=== PATIENT | female | born 1990 | race Caucasian/White ===

== ENCOUNTER 2021-07-03 16:54 | Outpatient (REF) | payer SELFPAY ==
[2021-07-03 20:23] LABS: HCT 39.8 % (36.0-46.0); HGB 13.3 g/dL (11.2-15.7); MCH 30.8 pg (27.0-33.0); MCHC 33.4 % (32.0-36.0); MCV 92.1 fL (80-95); MPV 9.9 fL (8.0-11.0); Platelet Count 248 10^3/uL (130-400); RBC 4.32 10^6/uL (3.93-5.22); RDW 12.4 % (11.7-14.6); RDW-SD 42.3 fL; WBC 5.59 10^3/uL (4.4-10.8)
[2021-07-03 21:18] LABS: TSH (W/Ref FT4) 1.64 uIU/mL (0.36-3.74); Vitamin B12 348 pg/mL (193-986)
== END 2021-07-03 16:55 | disposition home or self-care (01) ==
LOC: NCHCN 16:54
PROVIDERS: Visit Provider Nurse Practitioner Family
DX: R53.1 Weakness (principal); R20.2 Paresthesia of skin
CPT/HCPCS: 85027; 82607; 82746; 84443

== ENCOUNTER 2021-09-17 15:53 | Outpatient (REF) | payer OTHER, SELFPAY ==
[2021-09-17 20:32] LABS: Abs Immature Grans 0.02 10^3/uL (0.0-0.06); Absolute Basophil Count 0.04 10^3/uL (0.0-0.2); Absolute Eosinophil Count 0.09 10^3/uL (0.0-0.7); Absolute Lymphocyte Count 1.56 10^3/uL (1.2-3.4); Absolute Monocyte Count 0.31 10^3/uL (0.1-0.8); Absolute Neutrophil Count 2.74 10^3/uL (1.2-6.7); Basophils % 0.8; Eosinophils % 1.9; HGB 13.6 g/dL (11.2-15.7); Immature Grans % 0.4; Lymphocytes % 32.8; MCH 32.2 pg (27.0-33.0); MCV 95 fL (80-95); MPV 10.3 fL (8.0-11.0); Monocytes % 6.5; Neutrophils % 57.6; Platelet Count 252 10^3/uL (130-400); RBC 4.23 10^6/uL (3.93-5.22); RDW 12.6 % (11.7-14.6); WBC 4.76 10^3/uL (4.4-10.8)
== END 2021-09-17 15:54 | disposition home or self-care (01) ==
LOC: NCHCN 15:53
PROVIDERS: Visit Provider Nurse Practitioner Family
DX: R59.0 Localized enlarged lymph nodes (principal)
CPT/HCPCS: 85025

== ENCOUNTER 2022-10-20 18:38 | Outpatient (REF) | payer OTHER, SELFPAY ==
--- NOTE | 2022-10-20 14:30 | PAPFT_PTH ---
PATIENT: Marylou Shafer LOC: [facility]#:[id number] AGE/SX: 32/F ROOM: RE10/20/[address]: Kali Roa : 1990 BED: DIS: 10/20/2022 SPEC #: [id number] RECD: 10/21/22 13:06 STATUS: ELISHAJose RERaphael #: [id number] MARCO: 10/20/22 14:[address]: Karli Roalaide DEPT: [facility] Cytology RECD BY: Aliyah Humphreys ENTERED: 10/21/22 13:06 SP TYPE: PAPFT JORGE LUIS DR: Unknown,Unknown Tissues: 1 - CX/ENDOCX FOR PAP SMEARS Procedures: PAP THIN PREP/[facility] Screening HPV DNA PROBE Comments: [id number]
== END 2022-10-20 18:39 | disposition home or self-care (01) ==
LOC: NCHCN 18:38
PROVIDERS: Visit Provider Nurse Practitioner Family
DX: Z12.4 Encounter for screening for malignant neoplasm of cervix (principal); R87.610 Atypical squamous cells of undetermined significance on cytologic smear of cervix (ASC-US); Z11.51 Encounter for screening for human papillomavirus (HPV); Z01.419 Encounter for gynecological examination (general) (routine) without abnormal findings
CPT/HCPCS: 88142; 87624

== ENCOUNTER 2023-04-29 12:33 | Outpatient (REF) | payer OTHER, SELFPAY ==
--- OUTSIDE RECORDS SUMMARY | 2023-04-29 12:35 | XMS_ITS | Continuity of Care Document ---
Author Name Unknown Organization [facility] Address [address] [place] [address] Care Team Providers Care Extract Operator Name Role Phone LucianBlossom lemoschrissy Steel Primary Care Physician Encounter [facility] Date(s): 04/22/23 - 04/23/[address] [address] Encounter Diagnosis New onset seizure(Discharge Diagnosis) - 04/22/23 Unspecified convulsions(Final) - Hypo-osmolality and hyponatremia(Final) - Encounter for screening for COVID-19(Final) - Discharge Disposition: Home or Self Care Attending Physician: Keith Hart DO Admitting Physician: Lavelle Wright SHEEP BONER Allergies, Adverse Reactions, Alerts Substance Reaction Severity Status penicillins Unknown Active Assessment and Plan Extracted from: Title:H & P Author:Lavelle Wright Date:04/22/23 1.??New onset seizure??R56.9 -??Admitted as an inpatient -MRI with contrast of the brain -Seizures precautions -Tylenol for fever or headache -Normal saline at 100 cc/h -Zofran for nausea and vomiting -CBC, BMP, mag, Phos in the morning ? Ordered: PSO Admit to Inpatient, Semi-Private Telemetry, Inpatient, Keith Hart DO, 04/22/23 23:55:00 EST, 04/22/23 23:55:00 EST, 04/22/23 23:55:00 EST, 2 midnights or more but less than 96 hrs ?? Orders: acetaminophen, 1,000 mg = 2 tab, Oral, Tab, every 6 hr, PRN fever, First Dose: 04/23/23 0:47:00 EST, Routine Mylanta, 15 mL, Oral, Susp, every 6 hr, PRN dyspepsia, First Dose: 04/23/23 0:47:00 EST, Routine famotidine, 20 mg = 1 tab, Oral, Tab, BID, First Dose: 04/23/23 9:00:00 EST, Routine Keppra, 500 mg = 5 mL, IV Piggyback, Soln-IV, every 12 hr for 30 days, Administer over: 15 minutes, First Dose: 04/23/23 9:00:00 EST, Stop Date: 05/23/23 8:59:00 EST, Physician Stop, Routine, 400 mL/hr lidocaine 1% injectable solution, 1 mg 0.1 mL, Intradermal, Soln, As Directed, PRN other (see comment), First Dose: 04/23/23 0:47:00 EST, Routine Ativan, 1 mg = 0.5 mL, IV Push, Soln, every 2 hr for 3 days, PRN seizure activity, First Dose: 04/23/23 0:47:00 EST, Stop Date: 04/26/23 0:46:00 EST, Physician Stop, STAT ondansetron, 4 mg = 2 mL, IV Push, Soln, every 6 hr, PRN nausea/vomiting, First Dose: 04/23/23 0:47:00 EST, Routine Normal Saline Flush, 10 mL, IV Push, Soln, every 12 hr (cristopher), First Dose: 04/23/23 9:00:00 EST, Routine Sodium Chloride 0.9% 1,000 mL, Total Volume (mL): 1,000, 1,000 mL, Soln-IV, IV, 100 mL/hr, Start Date: 04/23/23 0:47:00 EST, Populate Charting Weight From Order Sodium Chloride 0.9% 1,000 mL, Total Volume (mL): 1,000, 1,000 mL, Soln-IV, IV, 30 mL/hr, Start Date: 04/23/23 0:47:00 EST, Populate Charting Weight From Order Ambulate as Tolerated, 04/23/23 0:47:00 EST, PRN Basic Metabolic Panel, Blood, Routine, 04/23/23 6:00:00 EST, every morning, for 3 days, Lab Collect Cardiac Monitoring, 04/23/23 0:47:00 EST, Telemetry CBC w/ Diff, Blood, Routine, 04/23/23 6:00:00 EST, every morning, for 3 days, Lab Collect Magnesium Level, Blood, Routine, 04/23/23 6:00:00 EST, every morning, for 3 days, Lab Collect MRI Brain w/ + w/o Contrast, 04/23/23 0:47:00 EST, Stat, Reason: new onset seizures, No, No, Transport Mode: Stretcher, Exam to be performed outside organization? Neurological Checks, 04/23/23 0:47:00 EST, With VS, Constant Indicator, 04/23/23 0:47:00 EST Notify Provider of Vital Signs, 04/23/23 0:47:00 EST, SpO2 < 92% on 2L O2 NC, T > 101.5, HR > 100, HR < 50, SBP greater than 160, SBP less than 90, DBP greater than 90, DBP less than 50, Resp Rate greater than 30, Resp Rate less than 8, Constant Indicator Phosphorus Level, Blood, Routine, 04/23/23 6:00:00 EST, every morning, for 3 days, Lab Collect Resuscitation Status, 04/23/23 0:47:00 EST, Full Code RT Eval and Treat Protocol, 04/23/23 0:47:00 EST, Stop date 04/23/23 0:47:00 EST, Rebekah Degroot RN Seizure Precautions, 04/23/23 0:47:00 EST, Constant Order, 04/23/23 0:47:00 EST Vital Signs, 04/23/23 0:47:00 EST, Constant order, every 4 hrs Weight, 04/23/23 0:47:00 EST, every morning Home meds reviewed??and reconciled for the medical record Extracted from: Title:ED Provider Note Author:Dylan Kirkpatrick MD Date:04/22/23 1.??Seizure??R56.9,??New ons et seizure??R56.9 Orders: Cardiac Monitoring, 04/22/23 20:44:00 EST Urine Culture, Urine, Stat collect, ST - Stat, 04/22/23 21:11:00 EST, Once, Nurse collect, Collected, 04/22/23 21:11:00 EST, Print Label, [id number] Vital Signs, 04/22/23 20:44:00 EST, Stop date 04/22/23 20:44:00 EST, Notify the Physician of ANY Abnormal Vital Signs Functional Status 04/23/23 Living Environment No Living Environmen t Information Available Lives With Family 1 Patient's Responsibilities Caregiver for child/parent/spouse, Driving, vp talent management, Home management, Housework, Laundry, Meal preparation, Personal ADL, Shopping, Other: (I) with all needs prior to admission. Special Services and Community Resources None 04/23/23 ADLs Independent 04/23/23 Family Member Travel History No recent t ravel Recent Travel History No recent travel Other exposure to Infectious Disease Non e 1Result Comment: Spouse and their 4 yo child. Medications Keppra 500 mg oral tablet 500 mg = 1 tab, Oral, BID, # 60 tab, 1 Refill(s), Pharmacy: [facility], 59.5, kg, 04/23/23 1:09:00 EST, Weight Dosing Start Date: 04/23/23 Status: Ordered Mental Status 04/23/23 Eye Opening Response [place] Spontaneous ly Best Verbal Response [place] Oriented Best Motor Response Venus Obeys comman ds [place] Coma Score 15 Problem List Condition Confirmation Course Effective Dates Status Health St atus Informant New onset seizure Confirmed Active Results Laboratory List Name Date Automated Diff 04/23/23 Basic Metabolic Panel 04/23/23 CBC w/ Diff 04/23/23 Magnesium Level 04/23/23 Phosphorus Level 04/23/23 SARS-CoV-2 (COVID-19) RNA (ID Now) Drug Screen Urine 04/22/23 Urinalysis Microscopic 04/22/23 Urinalysis with Micro if Indicated and C ulture if Indicated 04/22/23 Alcohol Level 04/22/23 CBC w/ Diff 04/22/23 Comprehensive Metabolic Panel (CMP) 04/22 PT/ INR 04/22/23 Automated Diff 04/22/23 Most recent to oldest [Reference Range]: 1 2 WBC [5.0-10.0 x10^3/mcL] 6.0 x10^3/mcL (04/23/23 7:00 AM) 7.1 x10^3/mcL (04/22/23 8:45 PM) RBC [4.1-5.3 x10^6/mcL] 3.8 x10^6/mcL *LOW* (04/23/23 7:00 AM) 4.2 x10^6/mcL (04/22/23 8:45 PM) Neutro Auto [40.0-75.0 %] 71.3 % (04/23/23 7:00 AM) 76.2 % *HI* (04/22/23 8:45 PM) Lymph Auto [20.0-50.0 %] 16.5 % *LOW* (04/23/23 7:00 AM) 13.7 % *LOW* (04/22/23 8:45 PM) Rosebud Auto [2.0-15.0 %] 11.2 % (04/23/23 7:00 AM) 8.8 % (04/22/23 8:45 PM) Basophil Auto [0.0-1.0 %] 0.3 % (04/23/23 7:00 AM) 0.4 % (04/22/23 8:45 PM) Prothrombin Time [9.0-11.0 seconds] 9.4 seconds (04/22/23 8:45 PM) INR 0.9 1 *NA* (04/22/23 8:45 PM) BUN [7-18 mg/dL] 8 mg/dL (04/23/23 7:00 AM) 7 mg/dL (04/22/23 8:45 PM) U Amph Scrn [Negative] Negative 2 (04/22/23 9:11 PM) UA Color Yellow (04/22/23 9:11 PM) UA WBC [0-3] 3-5 *ABN* (04/22/23 9:11 PM) Glucose Level [74-106 mg/dL] 91 mg/dL (04/23/23 7:00 AM) 178 mg/dL *HI* (04/22/23 8:45 PM) Potassium Level [3.5-5.1 mmol/L] 3.3 mmo l/L *LOW* (04/23/23 7:00 AM) 3.8 mmol/L (04/22/23 8:45 PM) U Benzodia Scrn [Negative] Negative (04/22/23 9:11 PM) MCV [80.0-96.0 fL] 95.1 fL (04/23/23 7:00 AM) 93.1 fL (04/22/23 8:45 PM) UA Urobilinogen Normal (04/22/23 9:11 PM) UA Bili [Negative] 1+ *ABN* (04/22/23 9:11 PM) UA Ketones Negative (04/22/23 9:11 PM) AST [15-37 unit/L] 63 unit/L *HI* (04/22/23 8:45 PM) ALT [14-59 unit/L] 42 unit/L (04/22/23 8:45 PM) MCHC [31.0-35.0 g/dL] 35.2 g/dL *HI* (04/23/23 7:00 AM) 36.2 g/dL *HI* (04/22/23 8:45 PM) Sodium Level [136-145 mmol/L] 139 mmol/L (04/23/23 7:00 AM) 134 mmol/L *LOW* (04/22/23 8:45 PM) UA RBC [0-2] 3-5 (04/22/23 9:11 PM) UA Leuk Est Negative (04/22/23 9:11 PM) UA Nitrite Negative (04/22/23 9:11 PM) UA Glucose [Negative] 1+ *ABN* (04/22/23 9:11 PM) Hct [37.0-47.0 %] 36.6 % *LOW* (04/23/23 7:00 AM) 39.2 % (04/22/23 8:45 PM) UA Bacteria Moderate /HPF *ABN* (04/22/23 9:11 PM) U Cocaine Scrn [Negative] Negative (04/22/23 9:11 PM) Calcium Level [8.5-10.1 mg/dL] 8.1 mg/dL *LOW* (04/23/23 7:00 AM) 8.6 mg/dL (04/22/23 8:45 PM) Phosphorus Level [2.6-4.7 mg/dL] 2.4 mg/ dL *LOW* (04/23/23 7:00 AM) Albumin Level [3.4-5.0 g/dL] 4.2 g/dL (04/22/23 8:45 PM) Protein Total [6.4-8.2 g/dL] 7.2 g/dL (04/22/23 8:45 PM) UA Protein 3+ *ABN* (04/22/23 9:11 PM) MCH [26.0-32.0 pg] 33.5 pg *HI* (04/23/23 7:00 AM) 33.7 pg *HI* (04/22/23 8:45 PM) Magnesium Level [1.8-2.4 mg/dL] 1.9 mg/d L (04/23/23 7:00 AM) Neutro Absolute 4.3 x10^3/mcL *NA* (04/23/23 7:00 AM) 5.4 x10^3/mcL *NA* (04/22/23 8:45 PM) Bilirubin Total [0.2-1.0 mg/dL] 2.7 mg/d L *HI* (04/22/23 8:45 PM) Hgb [12.0-16.0 g/dL] 12.9 g/dL (04/23/23 7:00 AM) 14.2 g/dL (04/22/23 8:45 PM) Alk Phos [46-146 unit/L] 44 unit/L *LOW* (04/22/23 8:45 PM) UA Blood 1+ *ABN* (04/22/23 9:11 PM) Ethanol Level [0-10 mg/dL] <5 mg/dL (04/22/23 8:45 PM) UA Mucous Few /HPF *ABN* (04/22/23 9:11 PM) UA Spec Grav 1.015 *NA* (04/22/23 9:11 PM) Platelets [130-450 x10^3/mcL] 154 x10^3/ mcL (04/23/23 7:00 AM) 189 x10^3/mcL (04/22/23 8:45 PM) CO2 [21-32 mmol/L] 25 mmol/L (04/23/23 7:00 AM) 23 mmol/L (04/22/23 8:45 PM) U Richelle Scrn [Negative] Negative (04/22/23 9:11 PM) UA Squam Epithelial [None Seen] Rare (04/22/23 9:11 PM) UA pH 8.0 *NA* (04/22/23 9:11 PM) U Opiate Scrn [Negative] Negative (04/22/23 9:11 PM) eGFR Non-AA [>=60] 121 (04/23/23 7:00 AM) 92 (04/22/23 8:45 PM) eGFR AA [>=60] 121 (04/23/23 7:00 AM) 92 (04/22/23 8:45 PM) UA Appear Clear (04/22/23 9:11 PM) Chloride Level [98-107 mmol/L] 105 mmol/ L (04/23/23 7:00 AM) 99 mmol/L (04/22/23 8:45 PM) U Oxy Scrn [Negative] Negative (04/22/23 9:11 PM) U PCP Scrn [Negative] Negative (04/22/23 9:11 PM) RDW-CV [11.5-14.5 %] 11.9 % (04/23/23 7:00 AM) 11.7 % (04/22/23 8:45 PM) U THC Scr [Negative] Positive *ABN* (04/22/23 9:11 PM) U Methadone Scr [Negative] Negative (04/22/23 9:11 PM) Imm Gran Auto [0.0-0.9 %] 0.2 % (04/23/23 7:00 AM) 0.3 % (04/22/23 8:45 PM) UA Culture Ind?. Indicated (04/22/23 9:11 PM) U Buprenorph Scr [Negative] Negative (04/22/23 9:11 PM) U mAMP Scr [Negative] Negative (04/22/23 9:11 PM) U TCA Scr [Negative] Negative (04/22/23 9:11 PM) Creatinine Level [0.55-1.02 mg/dL] 0.63 mg/dL (04/23/23 7:00 AM) 0.86 mg/dL (04/22/23 8:45 PM) SARS-CoV-2 (COVID-19) RNA (I D Now) [Not Detected] Not Detected (04/22/23 10:25 PM) Eos, Auto [1.0-6.0 %] 0.5 % *LOW* (04/23/23 7:00 AM) 0.6 % *LOW* (04/22/23 8:45 PM) 1Interpretive Data: INR 2-2.5 Prophylaxis: Short term DVT INR 2-3 Prophylaxis: hip and femur surgery Therapy: DVT (3 mos) PE (3-6 mos) TIA (fci) Atr Fib (remote computer terminal operator) Syst. emb post [place] Mitral Stenosis with emboli (remote computer terminal operator) Tissue prosthetic valves (3 mos min) INR 3-4.5 Therapy: recurrent DVT, PE (remote computer terminal operator) Prosthetic heart valves (fci) 2Interpretive Data: These are unconfirmed screening results, to be used only for medical (i.e. treatment) purposes. These screening results must not be used for non-medical purposes (e.g. employment or legal testing). New method started 09/26/10 Test Name Reference Range (Cut-off) THC Neg (50 ng/mL) PCP Neg (25 ng/mL) GIDEON Neg (150 ng/mL) MET Neg (500 ng/mL OPI Neg (100 ng/mL) AMP Neg (500 ng/mL BZO Neg (150 ng/mL) TCA Neg (300 ng/mL) MTD Neg (200 ng/mL) BAR Neg (200 ng/mL) OXY Neg (100 ng/mL) PPX Neg (300 ng/mL) BUP Neg (10 ng/mL) Orders for Microbiology Reports Name Date Urine Culture 04/22/23 Microbiology Reports TEST:Urine Culture STATUS:Auth (Verified) BODY SITE: SOURCE:Urine COLLECTED DATE/TIME:04/22/23 9:11 PM FINAL REPORT 10,000 - 100,000 cfu/ml Mixed Gram Positive [place] Vital Signs Most recent to oldest [Reference Range]: 1 2 3 Temperature Temporal Artery [36-38 Deg C] 36.9 Deg C (04/23/23 12:44 PM) 36.8 Deg C (04/23/23 4:27 AM) 36.9 Deg C (04/23/23 12:58 AM) Temperature Temporal Artery (DegF) [97.3-100 Deg F] 98.42 Deg F (04/23/23 12:44 PM) Peripheral Pulse Rate [60-100 bpm] 72 bpm (04/23/23 12:44 PM) 87 bpm (04/23/23 7:30 AM) 94 bpm (04/23/23 4:27 AM) Heart Rate Monitored [60-100 bpm] 101 bpm *HI* (04/23/23 12:00 AM) 104 bpm *HI* (04/22/23 11:00 PM) 95 bpm (04/22/23 10:00 PM) Respiratory Rate [12-24 br/min] 16 br/min (04/23/23 12:44 PM) 16 br/min (04/23/23 7:30 AM) 18 br/min (04/23/23 4:27 AM) Blood Pressure [90-140/60-90 mmHg] 134/96mmHg (04/23/23 12:44 PM) 112/63mmHg (04/23/23 4:27 AM) 127/94mmHg (04/23/23 12:58 AM) Mean Arterial Pressure, Cuff [70-110 mmHg] 93 mmHg (04/23/23 12:00 AM) 103 mmHg (04/22/23 11:00 PM) 103 mmHg (04/22/23 10:00 PM) Mean Arterial Pressure Cuff 79 mmHg (04/23/23 4:27 AM) Weight 59.5 kg (04/23/23 1:09 AM) 59.5 kg (04/23/23 12:59 AM) Weight Measured (lbs) 131.175 lb (04/23/23 12:59 AM) Weight Dosing 59.5 kg (04/23/23 1:09 AM) 59.500 kg (04/23/23 12:59 AM) Weight Estimated 59.5 kg (04/23/23 1:09 AM) 56.5 kg (04/22/23 8:28 PM) BSA Estimated 0 m2 (04/23/23 1:09 AM) Body Mass Index Estimated 26.49 kg/m2 (04/23/23 1:09 AM) 25.11 kg/m2 (04/22/23 8:28 PM) Height/Length Estimated 149.86 cm (04/23/23 1:09 AM) 150 cm (04/22/23 8:28 PM) Social History Social History Type Response Tobacco Former tobacco user Tobacco Use:. Sex Female Hospital Discharge Instructions Patient Education 04/23/2023 12:09:55 Seizure, Adult Seizure, Adult A seizure is a sudden burst of abnormal electrical and chemical activity in the brain. Seizures usually last from 30 seconds to 2 minutes. The abnormal activity temporarily interrupts normal brain function. Many types of seizures can affect adults. A seizure can cause many different symptoms depending on where in the brain it starts. What are the causes? Common causes of this condition include: ??? Fever or infection. ??? Brain injury, head trauma, bleeding in the brain, or a brain tumor. ??? Low levels of blood sugar or salt (sodium). ??? Kidney problems or liver problems. ??? Metabolic disorders or other conditions that are passed from parent to child (are inherited). ??? Reaction to a substance, such as a drug or a medicine, or suddenly stopping the use of a substance (withdrawal). ??? A stroke. ??? Developmental disorders such as autism spectrum disorder or cerebral palsy. In some cases, the cause of a seizure may not be known. Some people who have a seizure never have another one. A person who has repeated seizures over time without a clear cause has a condition called epilepsy. What increases the risk? You are more likely to develop this condition if: ??? You have a family history of epilepsy. ??? You have had a tonic???clonic seizure before. This type of seizure causes tightening (contraction) of the muscles of the whole body and loss of consciousness. ??? You have a history of head trauma, lack of oxygen at , or strokes. What are the signs or symptoms? There are many different types of seizures. The symptoms vary depending on the type of seizure you have. Symptoms occur during the seizure. They may also occur before a seizure (aura) and after a seizure (postictal). Symptoms may include the following: Symptoms during a seizure ??? Uncontrollable shaking (convulsions) with fast, jerky movements of muscles. ??? Stiffening of the body. ??? Breathing problems. ??? Confusion, staring, or unresponsiveness. ??? Head nodding, eye blinking or fluttering, or rapid eye movements. ??? Drooling, grunting, or making clicking sounds with your mouth. ??? Loss of bladder control and bowel control. Symptoms before a seizure ??? Fear or anxiety. ??? Nausea. ??? Vertigo. This is a feeling like: ??? You are moving when you are not. ??? Your surroundings are moving when they are not. ??? D??j?? vu. This is a feeling of having seen or heard something before. ??? Odd tastes or smells. ??? Changes in vision, such as seeing flashing lights or spots. Symptoms after a seizure ??? Confusion. ??? Sleepiness. ??? Headache. ??? Sore muscles. How is this diagnosed? This condition may be diagnosed based on: ??? A description of your symptoms. Video of your seizures can be helpful. ??? Your medical history. ??? A physical exam. You may also have tests, including: ??? Blood tests. ??? CT scan. ??? MRI. ??? Electroencephalogram (EEG). This test measures electrical activity in the brain. An EEG can predict whether seizures will return. ??? A spinal tap, also called a lumbar puncture. This is the removal and testing of fluid that surrounds the brain and spinal cord. How is this treated? Most seizures will stop on their own in less than 5 minutes, and no treatment is needed. Seizures that last longer than 5 minutes will usually need treatment. Seizures may be treated with: ??? Medicines given through an IV. ??? Avoiding known triggers, such as medicines that you take for another condition. ??? Medicines to control seizures or prevent future seizures (antiepileptics), if epilepsy caused your seizures. ??? Medical devices to prevent and control seizures. ??? Surgery to stop seizures or to reduce how often seizures happen, if you have epilepsy that doesnot respond to medicines. ??? A diet low in carbohydrates and high in fat (ketogenic diet). Follow these instructions at home: Medicines ??? Take tksn-ehj-lrcothw and prescription medicines only as told by your health care provider. ??? Avoid any substances that may prevent your medicine from working properly, such as alcohol. Activity ??? Follow instructions about activities, such as driving or swimming, that would be dangerous if you had another seizure. Wait until your health care provider says it is safe to do them. ??? If you live in the [place] check with your local department of motor vehicles (DMV) to find out about local driving laws. Each state has specific rules about when you can legally drive again. ??? Get enough rest. Lack of sleep can make seizures more likely to occur. Educating others ??? Teach friends and family what to do if you have a seizure. They should: ??? Help you get down to the ground, to prevent a fall. ??? Cushion your head and move items away from your body. ??? Loosen any tight clothing around your neck. ??? Turn you on your side. If you vomit, this helps keep your airway clear. ??? Know whether or not you need emergency care. ??? Stay with you until you recover. ??? Also, tell them what not to do if you have a seizure. Tell them: ??? They should not hold you down. Holding you down will not stop the seizure. ??? They should not put anything in your mouth. General instructions ??? Avoid anything that has ever triggered a seizure for you. ??? Keep a seizure diary. Record what you remember about each seizure, especially anything that might have triggered it. ??? Keep all follow-up visits. This is important. Contact a health care provider if: ??? You have another seizure or seizures. Call each time you have a seizure. ??? Your seizure pattern changes. ??? You continue to have seizures with treatment. ??? You have symptoms of an infection or illness. Either of these might increase your risk of having a seizure. ??? You are unable to take your medicine. Get help right away if: ??? You have: ??? A seizure that does not stop after 5 minutes. ??? Several seizures in a row without a complete recovery between seizures. ??? A seizure that makes it harder to breathe. ??? A seizure that leaves you unable to speak or use a part of your body. ??? You do not wake up right away after a seizure. ??? You injure yourself during a seizure. ??? You have confusion or pain right after a seizure. These symptoms may represent a serious problem that is an emergency. Do not wait to see if the symptoms will go away. Get medical help right away. Call your local emergency services (911 in the [place] Do not drive yourself to the hospital. Summary ??? Seizures are caused by abnormal electrical and chemical activity in the brain. The activity disrupts normal brain function and can cause various symptoms. ??? Seizures have many causes, including illness, head injuries, low levels of blood sugar or salt,and certain conditions. ??? Most seizures will stop on their own in less than 5 minutes. Seizures that last longer than 5 minutes are a medical emergency and need treatment right away. ??? Many medicines are used to treat seizures. Take jhhg-gep-wapwbfv and prescription medicines only as told by your health care provider. This information is not intended to replace advice given to you by your health care provider. Make sure you discuss any questions you have with your health care provider. Document Revised: 09/14/2020 Document Reviewed: 09/14/2020 Elsevier Patient Education ?? 2022 [employer] Follow Up Care 04/22/2023 20:28:43 With:[facility] Address: When:1 month Comments:Referral sent to [facility] With:Camryn Peters SHEEP BONER Address: [address] [place] [id number]- When:05/04/2023 09:00:00 Comments:Hospital follow up Pharmacology Note * Shelby Padron: PERFORM Event Display: Pharmacy Note Authored Date: TelePharmacy Home Medication List Update for Medication Reconciliation ??? Person Interviewed: patient ??? Quality of Interview/accuracy of medication list: good ??? Sources used to compile medication list: ???[facility] medication list ???SureScripts ?? PCP/Specialist list ?? Retail pharmacy ?? Patient list ?? MAR ?? Other ??? Changes made to home medication list: o Additions: ??? None o Deletions: ??? None o Changes: ??? None ??? Additional Notes: o Updated medication list with information provided by patient. Patient verified no prescription orOTC medications at home. ??? Recommended changes: o None The home medication list is now updated to the best of my knowledge and is ready to be reconciled by the provider. Please contact the TelePharmacy Medication Reconciliation Pharmacist at for any questions. Discharge instructions * Nettie Solano: PERFORM Event Display: Discharge Instructions Authored Date: [id number] CHRISTIANA HERNANDEZ :1990 Age:32 years Sex:Female Visit Date:04/22/2023 Primary Care Physician: Camryn Peters NP Hospital Discharge Instructions We would like to thank you for allowing us to assist you with your healthcare needs. The following includes patient education materials and information regarding your injury/illness. Your Next Steps Discharge Orders Discharge Activity Restrictions, Other (please specify):, No driving Avoid unsecured high places Discharge Bathing Instructions, Avoid baths and preference of showers No swimming alone Discharge Diet Instruction, Regular home diet Follow Up Appointments Follow Up with??[facility] When:??Within 1 month Why: Referral sent to [facility] Follow Up with??Camryn Peters NP When:??05/04/2023 10:00 AM EST Why: Hospital follow up Where: [address] [place] [id number]- Medications What How Much When Instructions Next Dose New levETIRAcetam (Keppra 500 mg oral tablet) 1 tab Oral (given by mouth) 2 times a day Refills: 1 Pickup at [facility] 04/23 @ 9pm Pharmacy Information [facility]: [address], [place] [phone] Your Summary Your Care Team Admitting Physician - Lavelle Wright SHEEP BONER Attending Physician - Keith Hart DO Primary Care Physician - Camryn Peters SHEEP BONER Your Diagnosis New onset seizure Problems Ongoing - Any problem that you are currently receiving treatment for. New onset seizure Discharge Vitals Temperature??(Temporal Artery) 98.4 ??F (36.9 ??C) Heart Rate??(Peripheral) 72 Respiratory Rate?? 16 Blood Pressure?? 134/96?? Height?? 59.00 in (149.86 cm) Weight?? 131.20 lb (59.5 kg) Weight??(Estimated) 131.20 lb (59.5 kg) BMI?? 26.49 Allergies penicillins Patient/Grill Cook Signature Patient Name:CHRISTIANA HERNANDEZ I have received this information and my questions have been answered. Patient/Grill Cook Name: Patient/Grill Cook Signature: Relationship to Patient: Witness Name/Signature: Date: Electronically Signed on: 04/23/2023 13:41 ESTSigned by:VINH microsoft dynamics manager architect Note * Nettie Solano D: PERFORM Event Display: Case Management Note Authored Date: [id number] Discharge instructions/education on seizures reviewed with patient at bedside. Patient engaged in education and able to verbalize teach back of reviewed material. Patient is aware of 1 new medicationfor pickup schedule and indication reviewed. Importance of compliance to this medication stressed. Patient is aware of follow-up with PCP Camryn peters on 05/04 at 10 AM. Discharge summary faxed to PCP office with patient's permission. Patient's providing transportation home. No home healthservices ordered upon discharge. Reportable signs and symptoms reviewed. Safety measures to take orfor free patient's family to take if she should have another seizure at home. Patient is aware she is not cleared to drive until she is seen by neurologist at [facility]. Patient is aware that I have sent a referral to neurology at [facility]. Patient denies any home medications or personal belongings in the [facility]. Patient's primary RN aware that patient is still hooked up to IV fluids this will may need to be removed prior to her departure. Contact information provided. * Kate Ward: PERFORM Event Display: Case Management Note Authored Date: [id number] Interqual criteria Telehealth Consult note * Celina Barnhart: PERFORM Event Display: Telemedicine Consultation Authored Date: [id number] EKG study * Event Display: Telemetry Strips Please click on link to view image. * Event Display: Telemetry Strips Please click on link to view image. * Event Display: Telemetry Strips Please click on link to view image. Respiratory therapy Hospital Progress note * Lizeth Moscoso: PERFORM Event Display: Respiratory Therapy Progress Note Authored Date: [id number] ??CHRISTIANA HERNANDEZ 32 Years MEASURED Weight: 59.5 kg (04/23/23 01:09:00) DOSING Weight Dosin.5 kg (04/23/23 01:09:00) Respiratory Shift Summary Breath Sounds: clear Shift Treatments: none indicated Shift Events: RT assessment performed. pt found on RA SPO2 98% with no resp distress noted. pt states that she had childhood asthma but does not use any respiratory medications at home Respiratory Protocol??Aerosol Therapy Assessment and Scoring Home Medication Routine: none Lung History (1) Smoking history less than 1 pack/day, History of lung disease(Asthma) Breath Sounds (0) Clear in all fowler Respiratory Rate (0) Less than or equal to 18 Modified Will Scale or Observed Dyspnea (0) None Oxygen Therapy (0) Room air, at baseline home O2, post-op, or CHF Home Respiratory Medications (0) None Inhaler Use Assessment ? Clinically Stable? _? Can take a slow deep breath on command? _? Can perform a 3 second breath hold? _ Respiratory total Score: 1 Respiratory Guidelines 0-2 pts - No Therapy indicated Electronically Signed on 04/23/23 09:00 AM Lizeth Moscoso Physician Emergency department Note * Dylan Kirkpatrick MD: MODIFY, MODIFY, MODIFY, PERFORM, MODIFY Event Display: ED Note Physician Authored Date: [id number] CHRISTIANA HERNANDEZ :1990 Age:32 years Sex:Female Visit Date:04/22/2023 Primary Care Physician: Camryn Peters NP Basic Information Time Seen: Dylan Kirkpatrick MD / 04/22/2023 20:34 Chief Complaint per EMS no hx seizures, and ?witnessed seizure by husand lasting approx 1min, reported feeling weird before, unable to describe activity. pt reports not eating much today, AOx4 but still feels gross History Of Present Illness: ?? States that she has no history of seizures and take no seizure medication.Presents emergency department??after she had a??witnessed seizure??that lasted about a minute. ??Patient reports that??shehas been feeling strange all day??feeling nauseous not eating too much??and episode of diarrhea andsays she was drinking a lot of water but not eating food??and according to EMS she had a tonic-clonic seizure. 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 States that she has??no history of seizures??and takes no seizure medication Review of Systems: Constitutional: No fevers, chills, sweats Eye: No recent visual problems ENT: No ear pain, nasal congestion, sore throat Respiratory: No shortness of breath, cough Cardiovascular: No Chest pain, palpitations, syncope Gastrointestinal: No nausea, vomiting, diarrhea Genitourinary: No hematuria Bakari/Lymph: Negative for bruising tendency, swollen lymph glands Endocrine: Negative for excessive thirst, excessive hunger Musculoskeletal: No back pain, neck pain, joint pain, muscle pain, decreased range of motion Integumentary: No rash, pruritus, abrasions Neurologic: Alert & oriented X 4 Psychiatric: No anxiety, depression Physical Exam Vitals & Measurements T:??36.2?C ??(Temporal Artery)?? HR:??96??(Peripheral)?? RR:??15?? BP:??128/96?? SpO2:??96%?? HT:??150??cm?? WT:??56.5??kg??(Estimated)?? BMI:??25.11?? O2 Therapy:??Room air?? General: Alert and oriented, well nourished, no acute distress. Eye: PERRL, EOMI, normal conjunctiva.?? Left??3rd nerve palsy??is old HENT: Normocephalic, clear tympanic membranes, normal hearing, moist oral mucosa, no scleral icterus, no sinus tenderness. Neck: Supple, non-tender, no carotid bruits, no JVD, no lymphadenopathy. Lungs: Clear to auscultation and percussion, non-labored respiration. Heart: Normal rate, regular rhythm, no murmur, gallop or edema. Breast: No lumps, no bumps, no scars, normal nipples. Abdomen: Soft, non-tender, non-distended, normal bowel sounds, no masses. Musculoskeletal: Normal range of motion and strength, no tenderness or swelling. Skin: Skin is warm, dry and appropriate for ethnicity, no rashes or lesions. Neurologic: Awake, alert and oriented X4, CN II-XII intact. Psychiatric: Cooperative, appropriate mood and affect. Medical Decision Making: MDM: Summary: Presents to the emergency department after she had??an episode last few days not feeling well??diarrhea and was drinking water.?? Today prior to arrival she had a tonic-clonic seizure.?? In the ED she also had a seizure which I gave her Keppra. ??CT scan of the head??does not show any acute intracranial abnormality.?? 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 ??She denies taking acetaminophen or any other substances.?? Teleneurology was consulted who feels the patient should be admitted for an MRI??and at this time she probably does not need the Keppra according to teleneurology. ? Data Review Analysis All the data on this patient was reviewed by me including laboratory??and imaging studies??as well as bedside studies performed by me ?? Independent review of Studies Imaging CT scan shows no abnormality??there is an old injury but no acute??abnormality Lab: Labs show hyponatremia??and is as described above ?? Risk Stratification: Patient with new onset seizures will need to be admitted for monitoring in the hospital and an MRI tomorrow ? Differential Diagnosis: 1.?? New onset seizures 2.?? Hyponatremia 3. 4. 5. ? Consultants: Laryngology was consulted from [facility] who recommends admission??for observation ?? Shared disposition: Understands??the disposition will be admitted ?? Impression:? Procedure No Qualifying Data Assessment/Plan 1.??Seizure??R56.9,??New onset seizure??R56.9 Orders: Cardiac Monitoring, 04/22/23 20:44:00 EST Urine Culture, Urine, Stat collect, ST - Stat, 04/22/23 21:11:00 EST, Once, Nurse collect, Collected, 04/22/23 21:11:00 EST, Print Label, [id number] Vital Signs, 04/22/23 20:44:00 EST, Stop date 04/22/23 20:44:00 EST, Notify the Physician of ANY Abnormal Vital Signs Problem List/Past Medical History Ongoing No qualifying data Historical No qualifying data Allergies penicillins Social History Electronic Cigarette/Vaping Electronic Cigarette Use: Use, within last 90 days. Tobacco Former tobacco user Tobacco Use:. Diagnostic Results ECG Heart rate 98 normal sinus rhythm no acute ST-T changes Diagnostic Study Interpretation: ? * Final Report * ?? CT Brain/Head w/o Contrast PROCEDURE INFORMATION:?? Exam: CT Head Without Contrast?? Exam date and time: 04/22/2023 9:05 PM?? Age: 32 years old?? Clinical indication: Seizure? TECHNIQUE:?? Imaging protocol: Computed tomography of the head without contrast.?? Radiation optimization: All CT scans at this facility use at least?? one of these dose optimization techniques: automated exposure?? control; mA and/or kV adjustment per patient size (includes targeted?? exams where dose is matched to clinical indication); or iterative?? reconstruction.? COMPARISON:?? MR BRAIN W/WO CONTRAST 08/28/2021 1:47 PM? FINDINGS:?? Brain: Cerebral sulci show bilateral symmetry with no supratentorial?? mass or mass effect detected. Curvilinear hypodensity along the?? anterior margin of the right lentiform nucleus could represent a?? chronic ischemic focus (see images 14 and 15 from series 4).?? Brainstem and cerebellum are unremarkable. There is no evidence of?? acute transcortical infarction or recent intracranial hemorrhage.?? Cerebral ventricles: Ventricular and cisternal spaces are normal in?? size and configuration and there is no midline shift or hydrocephalus?? seen.?? Paranasal sinuses: Grossly clear throughout.?? Mastoid air cells: Grossly clear bilaterally.?? Bones/joints: Chronic posterior midline suboccipital craniectomy?? defect is evident and no acute fractures are detected.?? Soft tissues: Unremarkable.? IMPRESSION:?? Question chronic focal ischemic insult along the anterior margin of?? the right-sided lentiform nucleus as above. ??This lesion was also?? present on the comparison study and there is no evidence of acute?? transcortical infarction, recent intracranial hemorrhage or?? hydrocephalus. No acute intracranial process is detected.? Report signed by: Cain Bowen On 04/22/2023 ??22:38:48 ? URL This document has an image ?? Result type:?CT Brain/Head w/o Contrast Result date:?April 22, 2023 21:05 EST Result status:?Auth (Verified) Result title:?CT Brain/Head w/o Contrast Performed by:?DomainUser, Generated on April 22, 2023 21:05 EST Verified by:?DomainUser, Generated on April 22, 2023 21:05 EST Encounter info:?[id number], [facility], Emergency, 04/22/2023 -?? Contributor system:?[email or web address] ?? Lab Results CBC and Differential?? LATEST RESULTS?? WBC?? 04/22/23 20:45?? 7.1?? RBC?? 04/22/23 20:45?? 4.2?? Hgb?? 04/22/23 20:45?? 14.2?? Hct?? 04/22/23 20:45?? 39.2?? MCV?? 04/22/23 20:45?? 93.1?? MCH?? 04/22/23 20:45?? 33.7 ??High?? MCHC?? 04/22/23 20:45?? 36.2 ??High?? RDW-CV?? 04/22/23 20:45?? 11.7?? Platelets?? 04/22/23 20:45?? 189?? Neutro Auto?? 04/22/23 20:45?? 76.2 ??High?? Lymph Auto?? 04/22/23 20:45?? 13.7 ??Low?? Rosebud Auto?? 04/22/23 20:45?? 8.8?? Eos, Auto?? 04/22/23 20:45?? 0.6 ??Low?? Basophil Auto?? 04/22/23 20:45?? 0.4?? Imm Gran Auto?? 04/22/23 20:45?? 0.3?? Neutro Absolute?? 04/22/23 20:45?? 5.4? Coagulation?? LATEST RESULTS?? Prothrombin Time?? 04/22/23 20:45?? 9.4?? INR?? 04/22/23 20:45?? 0.9? Routine Chemistry?? LATEST RESULTS?? Sodium Level?? 04/22/23 20:45?? 134 ??Low?? Potassium Level?? 04/22/23 20:45?? 3.8?? Chloride Level?? 04/22/23 20:45?? 99?? CO2?? 04/22/23 20:45?? 23?? Alk Phos?? 04/22/23 20:45?? 44 ??Low?? AST?? 04/22/23 20:45?? 63 ??High?? ALT?? 04/22/23 20:45?? 42?? BUN?? 04/22/23 20:45?? 7?? Glucose Level?? 04/22/23 20:45?? 178 ??High?? Creatinine Level?? 04/22/23 20:45?? 0.86?? eGFR AA?? 04/22/23 20:45?? 92?? eGFR Non-AA?? 04/22/23 20:45?? 92?? Calcium Level?? 04/22/23 20:45?? 8.6?? Protein Total?? 04/22/23 20:45?? 7.2?? Albumin Level?? 04/22/23 20:45?? 4.2?? Bilirubin Total?? 04/22/23 20:45?? 2.7 ??High? Serum Toxicology?? LATEST RESULTS?? Ethanol Level?? 04/22/23 20:45?? <5? Urine Toxicology?? LATEST RESULTS?? U Amph Scrn?? 04/22/23 21:11?? Negative?? U Richelle Scrn?? 04/22/23 21:11?? Negative?? U Benzodia Scrn?? 04/22/23 21:11?? Negative?? U Buprenorph Scr?? 04/22/23 21:11?? Negative?? U Cocaine Scrn?? 04/22/23 21:11?? Negative?? U TCA Scr?? 04/22/23 21:11?? Negative?? U THC Scr?? 04/22/23 21:11?? Positive Abnormal?? U mAMP Scr?? 04/22/23 21:11?? Negative?? U Methadone Scr?? 04/22/23 21:11?? Negative?? U Opiate Scrn?? 04/22/23 21:11?? Negative?? U Oxy Scrn?? 04/22/23 21:11?? Negative?? U PCP Scrn?? 04/22/23 21:11?? Negative? UA Macroscopic?? LATEST RESULTS?? UA Color?? 04/22/23 21:11?? Yellow?? UA Appear?? 04/22/23 21:11?? Clear?? UA Glucose?? 04/22/23 21:11?? 1+ Abnormal?? UA Bili?? 04/22/23 21:11?? 1+ Abnormal?? UA Ketones?? 04/22/23 21:11?? Negative?? UA Spec Grav?? 04/22/23 21:11?? 1.015?? UA Blood?? 04/22/23 21:11?? 1+ Abnormal?? UA pH?? 04/22/23 21:11?? 8.0?? UA Protein?? 04/22/23 21:11?? 3+ Abnormal?? UA Urobilinogen?? 04/22/23 21:11?? Normal?? UA Nitrite?? 04/22/23 21:11?? Negative?? UA Leuk Est?? 04/22/23 21:11?? Negative?? UA Culture Ind?.?? 04/22/23 21:11?? Indicated? UA Microscopic?? LATEST RESULTS?? UA WBC?? 04/22/23 21:11?? 3-5 Abnormal?? UA RBC?? 04/22/23 21:11?? 3-5?? UA Squam Epithelial?? 04/22/23 21:11?? Rare?? UA Mucous?? 04/22/23 21:11?? Few Abnormal?? UA Bacteria?? 04/22/23 21:11?? Moderate Abnormal? Infectious Disease?? LATEST RESULTS?? SARS-CoV-2 (COVID-19) RNA (ID Now)?? 04/22/23 22:25?? Not Detected? Electronically Signed on 04/23/23 12:41 AM Dylan Kirkpatrick MD History and physical note * Lavelle Wright SHEEP BONER: PERFORM Event Display: History and Physical Authored Date: [id number] CHRISTIANA HERNANDEZ :1990 Age:32 years Sex:Female Visit Date:04/22/2023 Primary Care Physician: Camryn Peters NP Chief Complaint X2 Seizures this evening, No seizure hx prior. Reports feeling gross/weird prior to seizures. History of Present Illness 32-year-old female patient who presents to the emergency department today after suffering a seizureat home.?? According to patient's boyfriend she started to act finding??and was found having tonic-clonic seizure.?? Patient's only medical history consist of Chiari malformation which was repaired as a child??she has never had any seizures nor takes medication for seizures.?? Patient proceeded to have 2 more seizures 1 in the emergency department that was witnessed.?? Was loaded with 1 g of Keppra and teleneurology was consulted who recommended continuing the Keppra??while awaiting for MRI??inthe morning.?? She is seen and evaluated at the bedside where she was asleep at the time my arrivalhowever awakens easily and is somewhat lethargic.?? Denies fever, chills, nausea, vomiting, chest pain, shortness of breath.?? No weakness or dizziness.?? No changes in urinary or bowel habits. ??Urine drug screen only positive for THC.?? Patient states that she had a weird feeling prior to her seizures tonight.?? Case discussed with the ER physician prior to admission.?? Due to the fact the patient has had multiple seizures this evening she will be admitted as an inpatient??with further imaging to include MRI in the morning. ??We will repeat all lab work in the morning.?? Condition is guarded. Review of Systems Constitutional: ??No fevers, ??No chills, ??No sweats Eye: ??No recent visual problems ENT: ??No ear pain, ??No nasal congestion, ??No sore throat Respiratory: ??No shortness of breath, ??No cough Cardiovascular: ??No Chest pain, ??No palpitations, ??No syncope Gastrointestinal: ??Nonausea, ??No vomiting, ??No diarrhea Genitourinary: ??No hematuria Bakari/Lymph: ??No bruising tendency, ??No swollen lymph glands Endocrine: ??No excessive thirst, No excessive hunger Musculoskeletal: No back pain, No neck pain, No joint pain, No muscle pain, No decreased range of motion Integumentary: ??No rash, ??No pruritus, ??No abrasions Neurologic: Alert & oriented X 4, lethargic Psychiatric: ??No anxiety, ??No depression Physical Exam Vitals & Measurements T:??36.9?C ??(Temporal Artery)?? TMIN:??36.2?C ??(Temporal Artery)?? TMAX:??36.9?C ??(Temporal Artery)?? HR:??97??(Peripheral)?? RR:??20?? BP:??127/94?? SpO2:??99%?? HT:??149.86??cm?? WT:??59.5??kg?? WT:??59.5??kg??(Estimated)?? BMI:??26.49?? Pain Score:??3?? O2 Therapy:??Room air?? General: Alert and oriented, well nourished, no acute distress. Eye: PERRL, EOMI, normal conjunctiva. HENT: Normocephalic, clear tympanic membranes, normal hearing, moist oral mucosa, no scleral icterus, no sinus tenderness. Neck: Supple, non-tender, no carotid bruits, no JVD, no lymphadenopathy. Lungs: Clear to auscultation and percussion, non-labored respiration. Heart: Normal rate, regular rhythm, no murmur, gallop or edema. Breast: No lumps, no bumps, no scars, normal nipples. Abdomen: Soft, non-tender, non-distended, normal bowel sounds, no masses. Musculoskeletal: Normal range of motion and strength, no tenderness or swelling. Skin: Skin is warm, dry and appropriate for ethnicity, no rashes or lesions. Neurologic: Awake, alert and oriented X4, CN II-XII intact. Psychiatric: Cooperative, appropriate mood and affect. Assessment/Plan 1.??New onset seizure??R56.9 -??Admitted as an inpatient -MRI with contrast of the brain -Seizures precautions -Tylenol for fever or headache -Normal saline at 100 cc/h -Zofran for nausea and vomiting -CBC, BMP, mag, Phos in the morning Ordered: PSO Admit to Inpatient, Semi-Private Telemetry, Inpatient, Keith Hart DO, 04/22/23 23:55:00 EST, 04/22/23 23:55:00 EST, 04/22/23 23:55:00 EST, 2 midnights or more but less than 96 hrs ?? Orders: acetaminophen, 1,000 mg = 2 tab, Oral, Tab, every 6 hr, PRN fever, First Dose: 04/23/23 0:47:00 EST, Routine Mylanta, 15 mL, Oral, Susp, every 6 hr, PRN dyspepsia, First Dose: 04/23/23 0:47:00 EST, Routine famotidine, 20 mg = 1 tab, Oral, Tab, BID, First Dose: 04/23/23 9:00:00 EST, Routine Keppra, 500 mg = 5 mL, IV Piggyback, Soln-IV, every 12 hr for 30 days, Administer over: 15 minutes,First Dose: 04/23/23 9:00:00 EST, Stop Date: 05/23/23 8:59:00 EST, Physician Stop, Routine, 400 mL/hr lidocaine 1% injectable solution, 1 mg 0.1 mL, Intradermal, Soln, As Directed, PRN other (see comment), First Dose: 04/23/23 0:47:00 EST, Routine Ativan, 1 mg = 0.5 mL, IV Push, Soln, every 2 hr for 3 days, PRN seizure activity, First Dose: 04/23/23 0:47:00 EST, Stop Date: 04/26/23 0:46:00 EST, Physician Stop, STAT ondansetron, 4 mg = 2 mL, IV Push, Soln, every 6 hr, PRN nausea/vomiting, First Dose: 04/23/23 0:47:00 EST, Routine Normal Saline Flush, 10 mL, IV Push, Soln, every 12 hr (cristopher), First Dose: 04/23/23 9:00:00 EST, Routine Sodium Chloride 0.9% 1,000 mL, Total Volume (mL): 1,000, 1,000 mL, Soln-IV, IV, 100 mL/hr, Start Date: 04/23/23 0:47:00 EST, Populate Charting Weight From Order Sodium Chloride 0.9% 1,000 mL, Total Volume (mL): 1,000, 1,000 mL, Soln-IV, IV, 30 mL/hr, Start Date: 04/23/23 0:47:00 EST, Populate Charting Weight From Order Ambulate as Tolerated, 04/23/23 0:47:00 EST, PRN Basic Metabolic Panel, Blood, Routine, 04/23/23 6:00:00 EST, every morning, for 3 days, Lab Collect Cardiac Monitoring, 04/23/23 0:47:00 EST, Telemetry CBC w/ Diff, Blood, Routine, 04/23/23 6:00:00 EST, every morning, for 3 days, Lab Collect Magnesium Level, Blood, Routine, 04/23/23 6:00:00 EST, every morning, for 3 days, Lab Collect MRI Brain w/ + w/o Contrast, 04/23/23 0:47:00 EST, Stat, Reason: new onset seizures, No, No, Transport Mode: Stretcher, Exam to be performed outside organization? Neurological Checks, 04/23/23 0:47:00 EST, With VS, Constant Indicator, 04/23/23 0:47:00 EST Notify Provider of Vital Signs, 04/23/23 0:47:00 EST, SpO2 < 92% on 2L O2 NC, T > 101.5, HR > 100, HR < 50, SBP greater than 160, SBP less than 90, DBP greater than 90, DBP less than 50, Resp Rate greater than 30, Resp Rate less than 8, Constant Indicator Phosphorus Level, Blood, Routine, 04/23/23 6:00:00 EST, every morning, for 3 days, Lab Collect Resuscitation Status, 04/23/23 0:47:00 EST, Full Code RT Eval and Treat Protocol, 04/23/23 0:47:00 EST, Stop date 04/23/23 0:47:00 EST, Rebekah Degroot RN Seizure Precautions, 04/23/23 0:47:00 EST, Constant Order, 04/23/23 0:47:00 EST Vital Signs, 04/23/23 0:47:00 EST, Constant order, every 4 hrs Weight, 04/23/23 0:47:00 EST, every morning Home meds reviewed??and reconciled for the medical record Problem List/Past Medical History Ongoing No qualifying data Historical No qualifying data Medications Inpatient acetaminophen, 1000 mg= 2 tab, Oral, every 6 hr, PRN Ativan, 1 mg= 0.5 mL, IV Push, every 2 hr, PRN famotidine, 20 mg= 1 tab, Oral, BID Keppra lidocaine 1% injectable solution, 1 mg= 0.1 mL, Intradermal, As Directed, PRN Mylanta, 15 mL, Oral, every 6 hr, PRN Normal Saline Flush, 10 mL, IV Push, every 12 hr (cristopher) ondansetron, 4 mg= 2 mL, IV Push, every 6 hr, PRN Sodium Chloride 0.9% 1,000 mL, 1000 mL, IV Sodium Chloride 0.9% 1,000 mL, 1000 mL, IV Home No active home medications Allergies penicillins Social History Electronic Cigarette/Vaping Electronic Cigarette Use: Use, within last 90 days. Tobacco Former tobacco user Tobacco Use:. Family History Hypertension Lab Results Test Name Test Result Date/Time WBC 7.1 x10^3/mcL 04/22/2023 20:45 EST RBC 4.2 x10^6/mcL 04/22/2023 20:45 EST Hgb 14.2 g/dL 04/22/2023 20:45 EST Hct 39.2 % 04/22/2023 20:45 EST MCV 93.1 fL 04/22/2023 20:45 EST MCH 33.7 pg 04/22/2023 20:45 EST MCHC 36.2 g/dL 04/22/2023 20:45 EST RDW-CV 11.7 % 04/22/2023 20:45 EST Platelets 189 x10^3/mcL 04/22/2023 20:45 EST Neutro Auto 76.2 % 04/22/2023 20:45 EST Lymph Auto 13.7 % 04/22/2023 20:45 EST Rosebud Auto 8.8 % 04/22/2023 20:45 EST Eos, Auto 0.6 % 04/22/2023 20:45 EST Basophil Auto 0.4 % 04/22/2023 20:45 EST Imm Gran Auto 0.3 % 04/22/2023 20:45 EST Neutro Absolute 5.4 x10^3/mcL 04/22/2023 20:45 EST Prothrombin Time 9.4 seconds 04/22/2023 20:45 EST INR 0.9 04/22/2023 20:45 EST Sodium Level 134 mmol/L 04/22/2023 20:45 EST Potassium Level 3.8 mmol/L 04/22/2023 20:45 EST Chloride Level 99 mmol/L 04/22/2023 20:45 EST CO2 23 mmol/L 04/22/2023 20:45 EST Alk Phos 44 unit/L 04/22/2023 20:45 EST AST 63 unit/L 04/22/2023 20:45 EST ALT 42 unit/L 04/22/2023 20:45 EST BUN 7 mg/dL 04/22/2023 20:45 EST Glucose Level 178 mg/dL 04/22/2023 20:45 EST Creatinine Level 0.86 mg/dL 04/22/2023 20:45 EST eGFR AA 92 04/22/2023 20:45 EST eGFR Non-AA 92 04/22/2023 20:45 EST Calcium Level 8.6 mg/dL 04/22/2023 20:45 EST Protein Total 7.2 g/dL 04/22/2023 20:45 EST Albumin Level 4.2 g/dL 04/22/2023 20:45 EST Bilirubin Total 2.7 mg/dL 04/22/2023 20:45 EST Ethanol Level <5 mg/dL 04/22/2023 20:45 EST U Amph Scrn NEGATIVE 04/22/2023 21:11 EST U Richelle Scrn NEGATIVE 04/22/2023 21:11 EST U Benzodia Scrn NEGATIVE 04/22/2023 21:11 EST U Buprenorph Scr NEGATIVE 04/22/2023 21:11 EST U Cocaine Scrn NEGATIVE 04/22/2023 21:11 EST U TCA Scr NEGATIVE 04/22/2023 21:11 EST U THC Scr POSITIVE 04/22/2023 21:11 EST U mAMP Scr NEGATIVE 04/22/2023 21:11 EST U Methadone Scr NEGATIVE 04/22/2023 21:11 EST U Opiate Scrn NEGATIVE 04/22/2023 21:11 EST U Oxy Scrn NEGATIVE 04/22/2023 21:11 EST U PCP Scrn NEGATIVE 04/22/2023 21:11 EST UA Color YELLOW. 04/22/2023 21:11 EST UA Appear CLEAR. 04/22/2023 21:11 EST UA Glucose 1+ 04/22/2023 21:11 EST UA Bili 1+ 04/22/2023 21:11 EST UA Ketones NEGATIVE 04/22/2023 21:11 EST UA Spec Grav 1.015 04/22/2023 21:11 EST UA Blood 1+ 04/22/2023 21:11 EST UA pH 8.0 04/22/2023 21:11 EST UA Protein 3+ 04/22/2023 21:11 EST UA Urobilinogen 0.2 Uro 04/22/2023 21:11 EST UA Nitrite NEGATIVE 04/22/2023 21:11 EST UA Leuk Est NEGATIVE 04/22/2023 21:11 EST UA Culture Ind?. Indicated 04/22/2023 21:11 EST UA WBC 3-5 04/22/2023 21:11 EST UA RBC 3-5 04/22/2023 21:11 EST UA Squam Epithelial Rare 04/22/2023 21:11 EST UA Mucous Few 04/22/2023 21:11 EST UA Bacteria Moderate 04/22/2023 21:11 EST SARS-CoV-2 (COVID-19) RNA (ID Now) Not Detected 04/22/2023 22:25 EST Diagnostic Results ?? FINDINGS:?? Brain: Cerebral sulci show bilateral symmetry with no supratentorial?? mass or mass effect detected. Curvilinear hypodensity along the?? anterior margin of the right lentiform nucleus could represent a?? chronic ischemic focus (see images 14 and 15 from series 4).?? Brainstem and cerebellum are unremarkable. There is no evidence of?? acute transcortical infarction or recent intracranial hemorrhage.?? Cerebral ventricles: Ventricular and cisternal spaces are normal in?? size and configuration and there is no midline shift or hydrocephalus?? seen.?? Paranasal sinuses: Grossly clear throughout.?? Mastoid air cells: Grossly clear bilaterally.?? Bones/joints: Chronic posterior midline suboccipital craniectomy?? defect is evident and no acute fractures are detected.?? Soft tissues: Unremarkable.? IMPRESSION:?? Question chronic focal ischemic insult along the anterior margin of?? the right-sided lentiform nucleus as above. ??This lesion was also?? present on the comparison study and there is no evidence of acute?? transcortical infarction, recent intracranial hemorrhage or?? hydrocephalus. No acute intracranial process is detected.?? [1] [1]??CT Brain/Head w/o Contrast; Domain[employer], Generated 04/22/2023 21:05 EST Electronically Signed on 04/23/23 02:22 AM Lavelle Wright SHEEP BONER Keith Hart DO Patient Care team information Care Team Personnel Name: Camryn Peters SHEEP BONER Position: PowerChart View Only Member Role: Informed Provider Address: Address: [address] [place] [address]- Care Team Related Persons Name: ZAC HERNANDEZ Address: Home [address], [id number]
[2023-04-29 20:18] LABS: Anion Gap 12.9 mmol/L (3-11); BUN 6 mg/dL (7-18); CO2 25.1 mmol/L (21.0-32.0); CREATININE 0.7 mg/dL (0.55-1.02); Calcium 9.9 mg/dL (8.5-10.1); Chloride 104 mmol/L (98-107); Estimated GFR 117.77 (mL/min/1.73m2); Glucose 91 mg/dL (74-106); Potassium 3.7 mmol/L (3.5-5.1); Sodium 142 mmol/L (136-145)
[2023-04-29 21:14] LABS: Hemoglobin A1C 4.8 % (<5.7)
== END 2023-04-29 12:34 | disposition home or self-care (01) ==
LOC: NCHCN 12:33
PROVIDERS: Visit Provider Nurse Practitioner Family
DX: R56.9 Unspecified convulsions (principal)
CPT/HCPCS: 80048; 80177; 83036

== ENCOUNTER 2023-11-16 12:10 | Outpatient (REF) | payer OTHER, SELFPAY ==
--- OUTSIDE RECORDS SUMMARY | 2023-11-16 12:17 | XMS_ITS | Encounter Summary ---
Author Organization [facility] Address [phone] Critical [place] [address] Care Team Providers Care Necktie Turner Name Role Phone Hayley Pandey MD Unavailable + [phone] Chloé Sánchez CNM Unavailable [phone] Dayana Galindo MD Unavailable Ruiz Lewis DO Unavailable Xiomara Cain Morales MD Unavailable [phone] Kate Leal MD Unavailable [phone] Tari Willams Unavailable [phone] Cynthia Allen CNM Unavailable [phone] Palak Culver CNM Unavailable [phone] Damaso Carranza MD Unavailable [phone] Ian Youssef MD Unavailable [phone] Jc Jacobs MD Unavailable [phone] Eliz Saleem CNM Unavailable [phone] Belén Bravo MD Primary Care Provider Reason for Visit * Reason Comments Medication Refill Encounter Details Date Type Department Care Team (Late st Contact Info) Description 03/02/2020 [address]ill [facility] [address] [phone] Belén Bravo MD [address] [phone] [email or web address] Medication Refill Social History Tobacco Use Types Packs/Day Years Used Date Smoking Tobacco: Never Smokeless Tobacco: Never Alcohol Use Standard Drinks/Week Comments Not Currently 0 (1 standard drink = 0.6 oz pur e alcohol) Quit 1 week ago Sex and Gender Information Value Date Recorded Sex Assigned at Female 01/11/2020 5:24 PM EDT Gender Identity Female 01/11/2020 5:24 PM EDT Sexual Orientation Straight 01/11/2020 5: 24 PM EDT documented as of this encounter Progress Notes * Serina Smith - 03/02/2020 9:47 AM EST Last OV: 01/31/2020 Next OV: None Last Filled: 02/06/2020 documented in this encounter Plan of Treatment Not on file documented as of this encounter Visit Diagnoses Diagnosis Anxiety and depression documented in this encounter Care Teams Necktie Turner Relationship Specialty Start Date End Date Belén Bravo MD [address] [place] [address] [email or web address] PCP - General Family Medicine 11/01/19 06/08/23 Hayley Pandey MD [address] [place] [address] [email or web address] Historical LMR Provider 01/15/19 03/30/21 Chloé Sánchez CNM [address] [place] [address] Historical LMR Provider 01/15/19 03/30/21 Dayana Galindo MD 15 [facility] 102 [place] [address] [email or web address] Historical LMR Provider 01/15/19 03/30/21 Ruiz Lewis DO 73 [facility] [place] [address] [email or web address] Historical LMR Provider 01/15/19 03/30/21 Cain Morales MD [address] [place] [address] 401 [place] [address] Historical LMR Provider 01/15/19 2 Kate Leal MD 15 [facility] 102 [place] [address] [email or web address] Historical LMR Provider 01/15/19 03/30/21 Tari Willams 15 [facility] 201 [place] [address] Historical LMR Provider 01/15/19 2 Cynthia Allen CNM [address], [place] [address] [email or web address] Historical LMR Provider 01/15/19 03/30/21 Palak Culver CNM 15 [facility] 102 [place] [address] [email or web address] Historical LMR Provider 01/15/19 03/30/21 Damaso Carranza MD 15 [facility] 102 [place] [address] [email or web address] Historical LMR Provider 01/15/19 Ian Youssef MD 155 [facility] 100 [place] [address] Historical LMR Provider 01/15/19 2 Jc Jacobs MD [address] [place] [address] [email or web address] Historical LMR Provider 01/15/19 03/30/21 Eliz Saleem CNM [address] [employer] [facility], [facility] [place] [address] [email or web address] Historical LMR Provider 01/15/19 03/30/21 documented as of this encounter Additional Source Comments The information contained in this document represents components of the legal health record. It is not the complete legal health record.[facility]
--- OUTSIDE RECORDS SUMMARY | 2023-11-16 12:17 | XMS_ITS | Encounter Summary ---
Author Organization [facility] Address [phone] [facility] [place] [employer] [address] Care Team Providers Care Demographer Name Role Phone Hayley Pandey MD Unavailable Chloé Sánchez CNM Unavailable [phone] Dayana Galindo MD Unavailable Ruiz Lewis DO Unavailable Xiomara Cain Morales MD Unavailable [phone] Kate Leal MD Unavailable [phone] Tari Willams Unavailable [phone] Cynthia Allen CNM Unavailable [phone] Palak Culver CNM Unavailable [phone] Damaso Carranza MD Unavailable [phone] aIn Youssef MD Unavailable [phone] Jc Jacobs MD Unavailable [phone] Eliz Saleem CNM Unavailable Belén Bravo MD Primary Care Provider Reason for Visit * Reason Onset Date Comments left foot issue 08/06/2020 Encounter Details Date Type Department Care Team (Late st Contact Info) Description 08/06/[address] [address] Clare Elizalde LPN [email or web address] left foot issue Social History Tobacco Use Types Packs/Day Years [...] as of this encounter Progress Notes * Belén Bravo MD - 08/06/2020 4:44 PM EDT Unlikely to be anything urgent if seen for same thing in mid-June. I think it will be fine to see Radha tomorrow. * Clare Elizalde LPN - 08/06/2020 3:20 PM EDT She has taken an appt with Radha for tomorrow. She asks if this is appropriate - I did tell her that her s/s were concerning - if her foot is cold, pins and needles and swollen - and progressing she should be seen sooner than later. ? Circulation/clot - did suggested either UC/ER for evaluation if she feels as though her symptoms have progressed. Could not provide dx without her being evaluated. * Clare Elizalde LPN - 08/06/2020 2:14 PM EDT Spoke with patient- Was seen at on 07/05/2020 - she did not follow with ortho Had pain top of left foot - foot remains swollen - always swollen - states for past couple of days foot has been cold and pins and needles - slight bruising. She will see Radha this afternoon. documented in this encounter Plan of Treatment Not on file documented as of this encounter Visit Diagnoses Not on filedocumented in this encounter Care Teams Demographer Relationship Specialty Start Date End Date Belén Bravo MD [address] [place] [address] [email or web address] PCP - General Family Medicine 11/01/19 06/08/23 Hayley Pandey MD [address] [place] [address] [email or web address] Historical LMR Provider 01/15/19 03/30/21 Chloé Sánchez CNM [address] [place] [address] [email or web address] Historical LMR Provider 01/15/19 03/30/21 Dayana Galindo MD [address] [place] [address] [email or web address] Historical LMR Provider 01/15/19 03/30/21 Ruiz Lewis DO [address] [place] [address] [email or web address] Historical LMR Provider 01/15/19 03/30/21 Cain Morales MD [address] [place] [address] Historical LMR Provider 01/15/19 2 Kate Leal MD [address] [place] [address] [email or web address] Historical LMR Provider 01/15/19 03/30/[address] 15 [facility] 201 [place] [address] Historical LMR Provider 01/15/19 [address], [facility] [place] [place] [address] Historical LMR Provider 01/15/19 03/30/21 Palka Culver CNM 15 [facility] 102 [place] [address] [email or web address] Historical LMR Provider 01/15/19 03/30/21 Damaso Carranza MD [address] [address] Historical LMR Provider 01/15/19 Ian Youssef MD [address] [place] [address] Historical LMR Provider 01/15/19 2 Jc Jacobs MD [address] [place] [address] [email or web address] Historical LMR Provider 01/15/19 03/30/[address], [place] [address] Historical LMR Provider 01/15/19 03/30/21 documented as of this encounter Additional Source Comments The information contained in this document represents components of the legal health record. It is not the complete legal health record.[facility]
--- OUTSIDE RECORDS SUMMARY | 2023-11-16 12:17 | XMS_ITS | Encounter Summary ---
Author Organization [facility] Address [phone] [facility] [place] [address] Care Team Providers Care Fabricating Machine Operator Name Role Phone Hayley Pandey MD Unavailable Chloé Sánchez CNM Unavailable [phone] Dayana Galindo MD Unavailable Ruiz Lewis DO Unavailable Xiomara Cain Morales MD Unavailable [phone] Kate Leal MD Unavailable [phone] Tari Willams Unavailable [phone] Cynthia Allen CNM Unavailable [phone] Palak Culver CNM Unavailable [phone] Damaso Carranza MD Unavailable [phone] Ian Youssef MD Unavailable [phone] Jc Jacobs MD Unavailable [phone] Eliz Saleem CNM Unavailable [phone] Belén Bravo MD Primary Care Provider Encounter Details Date Type Department Care Team (Late st Contact Info) Description 07/22/2020 Orders Only [facility] - [address] [place] [address] Scheduling, [facility] Bulk Ordering User To Enable Vaccine Encounter for immunization Social History Tobacco Use Types Packs/Day Years [...] PM EDT documented as of this encounter Plan of Treatment Not on file documented as of this encounter Visit Diagnoses Diagnosis Encounter for immunization documented in this encounter Care Teams Fabricating Machine Operator Relationship Specialty Start Date End Date Belén Bravo MD [address] [place] [address] [email or web address] PCP - General Family Medicine 11/01/19 06/08/23 Hayley Pandey MD [address] [place] [address] [email or web address] Historical LMR Provider 01/15/19 03/30/21 Chloé Sánchez CNM [address] [place] [address] [email or web address] Historical LMR Provider 01/15/19 03/30/21 Dayana Galindo MD [address] [place] [address] [email or web address] Historical LMR Provider 01/15/19 03/30/21 Ruiz Lewis DO [address] [place] [address] [email or web address] Historical LMR Provider 01/15/19 03/30/21 Cain Morales MD [address] [place] [address] Historical LMR Provider 01/15/19 2 Kate Leal MD 15 [facility] 102 [place] [address] [email or web address] Historical LMR Provider 01/15/19 03/30/21 Tari Willams 15 [facility] 201 [place] [address] Historical LMR Provider 01/15/19 2 Cynthia Allen [place] [address] Historical LMR Provider 01/15/19 03/30/21 Palak Culver CNM [address] [address] Historical LMR Provider 01/15/19 03/30/21 Damaso Carranza MD 15 [facility] 102 [place] [address] Historical LMR Provider 01/15/19 Ian Youssef MD [address] [place] [address] Historical LMR Provider 01/15/19 2 Jc Jacobs MD [address] [place] [address] [email or web address] Historical LMR Provider 01/15/19 03/30/21 Eliz Saleem CNM [facility], [facility] [place] [address] [email or web address] Historical LMR Provider 01/15/19 03/30/21 documented as of this encounter Additional Source Comments The information contained in this document represents components of the legal health record. It is not the complete legal health record.[facility]
--- OUTSIDE RECORDS SUMMARY | 2023-11-16 12:17 | XMS_ITS | Encounter Summary ---
Author Organization [facility] Address [phone] [place] [address] Care Team Providers Care Watch Electrician Name Role Phone Hayley Pandey MD Unavailable + [phone] Chloé Sánchez CNM Unavailable [phone] Dayana Galindo MD Unavailable Ruiz Lewis DO Unavailable Xiomara Cain Morales MD Unavailable [phone] Kate Leal MD Unavailable [phone] Tari Willams Unavailable [phone] Cynthia Allen CNM Unavailable [phone] Palak Culver CNM Unavailable [phone] Damaso Carranza MD Unavailable [phone] Ian Youssef MD Unavailable [phone] Jc Jacobs MD Unavailable [phone] Eliz Saleem CNM Unavailable [phone] Belén Bravo MD Primary Care Provider [phone] Encounter Details Date Type Department Care Team (Late st Contact Info) Description 01/17/[address] [address] Belén Bravo MD [address] [place] [address] Social History Tobacco Use Types Packs/Day Years [...] as of this encounter Progress Notes * Nina Garcia LPN - 01/21/2021 1:57 PM EDT Attempted to contact patient. No answer. Sent [place] message looking for clarification on what patient is looking for. * Belén Bravo MD - 01/17/2021 2:31 PM EDT Not sure what she is asking for? If she lives in [place], would need to presumably get medical marijuanacard from doctor in [place]. I don't know [place] state laws about this. * Katerin Angela - 01/17/2021 11:15 AM EDT Patients calls looking for help or a letter of recommendation to transfer medical marijuana card from [place] to [place]. Patient states she was recommended a doctor in [place] that would issue the card at the time. Will not help with transfer. Advised patient would discuss with provider. FD/Clinical-Patient would like a call documented in this encounter Plan of Treatment Not on file documented as of this encounter Visit Diagnoses Not on filedocumented in this encounter Care Teams Watch Electrician Relationship Specialty Start Date End Date Belén Bravo MD [address] [phone] [email or web address] PCP - General Family Medicine 11/01/19 06/08/23 Hayley Pandey MD 15 [place] [address] [email or web address] Historical LMR Provider 01/15/19 03/30/21 Chloé Sánchez CNM [address] [place] [address] [email or web address] Historical LMR Provider 01/15/19 03/30/21 Dayana Galindo MD [address] [place] [address] [email or web address] Historical LMR Provider 01/15/19 03/30/[address] [place] [address] [email or web address] Historical LMR Provider 01/15/19 03/30/21 Cain Morales MD [address] [place] [address] Historical LMR Provider 01/15/19 2 Kate Leal MD [address] [place] [address] [email or web address] Historical LMR Provider 01/15/19 03/30/21 Tari Willams 15 [facility] 201 [place] [address] Historical LMR Provider 01/15/19 [address], [place] [address] Historical LMR Provider 01/15/19 03/30/21 Palak Culver CNM 15 [facility] 102 [place] [address] Historical LMR Provider 01/15/19 03/30/21 Damaso Carranza MD 15 [facility] 102 [place] [address] Historical LMR Provider 01/15/19 Ian Youssef MD [address] [place] [address] Historical LMR Provider 01/15/19 2 Jc Jacobs MD [address] [place] [address] [email or web address] Historical LMR Provider 01/15/19 03/30/[address], [place] [address] Historical LMR Provider 01/15/19 03/30/21 documented as of this encounter Additional Source Comments The information contained in this document represents components of the legal health record. It is not the complete legal health record.[facility]
--- OUTSIDE RECORDS SUMMARY | 2023-11-16 12:17 | XMS_ITS | Encounter Summary ---
Author Organization [facility] Address [phone] [facility] [place] [address] Care Team Providers Care County Engineer Name Role Phone Hayley Pandey MD Unavailable Chloé Sánchez CNM Unavailable [phone] Dayana Galindo MD Unavailable Ruiz Lewis DO Unavailable [email or web address] Cain Morales MD Unavailable [phone] Kate Leal MD Unavailable [phone] Tari Willams Unavailable [phone] Cynthia Allen CNM Unavailable [phone] Palak Culver CNM Unavailable [phone] Damaso Carranza MD Unavailable Ian Youssef MD Unavailable [phone] Jc Jacobs MD Unavailable [phone] Eliz Saleem CNM Unavailable Belén Bravo MD Primary Care Provider [phone] Encounter Details Date Type Department Care Team (Late st Contact Info) Description 09/11/2020 Telephone [facility] Med Access Care Manuel [address] [address] Yolanda Chaudhari, RN [address] [place] [address] [email or web address] Social History Tobacco Use Types Packs/Day Years [...] as of this encounter Progress Notes * Yolanda Chaudhari RN - 09/11/2020 2:20 PM EDT Left message, negative urine culture. documented in this encounter Plan of Treatment Not on file documented as of this encounter Visit Diagnoses Not on filedocumented in this encounter Care Teams County Engineer Relationship Specialty Start Date End Date Belén Bravo MD [address] [place] [address] [email or web address] PCP - General Family Medicine 11/01/19 06/08/23 Hayley Pandey MD [address] [place] [address] [email or web address] Historical LMR Provider 01/15/19 03/30/21 Chloé Sánchez CNM [address] [place] [address] [email or web address] Historical LMR Provider 01/15/19 03/30/21 Dayana Galindo MD [address] [place], [place] [id number] [email or web address] Historical LMR Provider 01/15/19 03/30/21 Ruiz Lewis DO [address] [place] [address] [email or web address] Historical LMR Provider 01/15/19 03/30/21 Cain Morales MD [address] [place] [address] 401 [place] [address] Historical LMR Provider 01/15/19 2 Kate Leal MD 15 [facility] 102 [place] [address] [email or web address] Historical LMR Provider 01/15/19 03/30/21 Tari Willams 15 [facility] 201 [place] [address] Historical LMR Provider 01/15/19 2 Cynthia Allen CNM [address] [facility] [address], [place] [address] [email or web address] Historical LMR Provider 01/15/19 03/30/21 Palak Culver CNM 15 [facility] 102 [place] [address] Historical LMR Provider 01/15/19 03/30/21 Damaso Carranza MD 15 [facility] 102 [place] [address] [email or web address] Historical LMR Provider 01/15/19 Ian Youssef MD [facility] Jordan Haynes [address] [address] Historical LMR Provider 01/15/19 2 Jc Jacobs MD [address] [place] [address] [email or web address] Historical LMR Provider 01/15/19 03/30/21 [place] [address] [email or web address] Historical LMR Provider 01/15/19 03/30/21 documented as of this encounter Additional Source Comments The information contained in this document represents components of the legal health record. It is not the complete legal health record.[facility]
--- OUTSIDE RECORDS SUMMARY | 2023-11-16 12:17 | XMS_ITS | Encounter Summary ---
Author Organization [facility] Address [phone] Critical [place] [address] Care Team Providers Care Urban Renewal Manager Name Role Phone Hayley Pandey MD Unavailable + [phone] Chloé Sánchez CNM Unavailable [phone] Dayana Galindo MD Unavailable Ruiz Lewis DO Unavailable Xiomara Cain Morales MD Unavailable [phone] Kate Leal MD Unavailable [phone] Tari Willams Unavailable [phone] Cynthia Allen CNM Unavailable [phone] Palak Culver CNM Unavailable [phone] Damaso Carranza MD Unavailable [phone] Ian Youssef MD Unavailable [phone] Jc Jacobs MD Unavailable [phone] Eliz Saleem CNM Unavailable [phone] Belén Bravo MD Primary Care Provider [phone] Reason for Referral * Consultation (Within 2 weeks) - Closed Specialty Diagnoses / Procedures Referred By Theresa lo Referred To Contact Neurology Diagnoses Arnold-Chiari malformation Belén Bravo MD [address] [place] [address] Email: [email or web address] [facility] Parent [address] [place] [address] Referral ID Status Reason Start Date Expiration Date Visits Re quested Visits Authorized [id number] Closed 08/10/2020 08/10/2021 1 1 Reason for Visit * Reason Onset Date Comments Specialist Referral 08/10/2020 Neurology Encounter Details Date Type Department Care Team (Late st Contact Info) Description 08/10/2020 Telephone [place] [phone] Belén Bravo MD [address] [place] [address] Specialist Referral (Neurology) Social History Tobacco Use Types Packs/Day Years [...] as of this encounter Progress Notes * Katerin Angela - 08/10/2020 9:12 AM EDT Patient calls to re-instate referral to Neurology. Original referral 03/2019, unable to schedule due to COVID 19. Referral entered per CPU documented in this encounter Plan of Treatment Scheduled Referrals Name Type Priority Associated Diagnoses Orde r Schedule Ambulatory Referral to [facility] Neurology Outpatient Referral Routine Arnold-Chiari malformation Ordered: 08/10/2020 documented as of this encounter Visit Diagnoses Diagnosis Arnold-Chiari malformation- Primary Spina bifida with hydrocephalus, unspecified region documented in this encounter Care Teams Urban Renewal Manager Relationship Specialty Start Date End Date Belén Bravo MD [address] [place] [id number] [email or web address] PCP - General Family Medicine 11/01/19 06/08/23 Hayley Pandey MD [address] [address] [email or web address] Historical LMR Provider 01/15/19 03/30/21 Chloé Sánchez CNM [address] [place] [address] [email or web address] Historical LMR Provider 01/15/19 03/30/21 Dayana Galindo MD [address] [place] [address] [email or web address] Historical LMR Provider 01/15/19 03/30/21 Ruiz Lewis DO [address] [place] [address] [email or web address] Historical LMR Provider 01/15/19 03/30/21 Cain Morales MD [address] [place] [address] Historical LMR Provider 01/15/19 2 Kate Leal MD [address] [place] [address] [email or web address] Historical LMR Provider 01/15/19 03/30/21 Tari Willams 15 [facility] [address] [place] [address] Historical LMR Provider 01/15/19 [address], [place] [address] Historical LMR Provider 01/15/19 03/30/21 Palak Culver CNM 15 [facility] [address] [place] [address] Historical LMR Provider 01/15/19 03/30/21 Damaso Carranza MD 15 [facility] [address] [place] [address] Historical LMR Provider 01/15/19 Ian Youssef MD [address] [place] [address] Historical LMR Provider 01/15/19 2 Jc Jacobs MD [address] [place] [address] [email or web address] Historical LMR Provider 01/15/19 03/30/[address], [place] [address] Historical LMR Provider 01/15/19 03/30/21 documented as of this encounter Additional Source Comments The information contained in this document represents components of the legal health record. It is not the complete legal health record.[facility]
--- OUTSIDE RECORDS SUMMARY | 2023-11-16 12:17 | XMS_ITS | Encounter Summary ---
Author Organization [facility] Address [phone] [facility] [place] [address] Care Team Providers Care Banking Specialist Name Role Phone Hayley Pandey MD Unavailable + [phone] Chloé Sánchez CNM Unavailable [phone] Dayana Galindo MD Unavailable Ruiz Lewis DO Unavailable Xiomara Cain Morales MD Unavailable [phone] Kate Leal MD Unavailable [phone] Tari Willams Unavailable [phone] Cynthia Allen CNM Unavailable [phone] Palak Culver CNM Unavailable [phone] Damaso Carranza MD Unavailable [phone] Ian Youssef MD Unavailable [phone] Jc Jacobs MD Unavailable [phone] Eliz Saleem CNM Unavailable [phone] Belén Bravo MD Primary Care Provider Reason for Visit * Reason Onset Date Comments Results 08/07/2020 Encounter Details Date Type Department Care Team (Late st Contact Info) Description 08/07/2020 Telephone [facility] Familia Jackson [address] [address] Candi Saenz RN [address] [place] [address] [email or web address] Results Social History Tobacco Use Types Packs/Day Years [...] as of this encounter Progress Notes * Candi Saenz RN - 08/07/2020 9:37 AM EDT Spoke with the patient. Results already viewed in the gateway. Aware scheduling should be calling today to schedule DVT study. documented in this encounter Plan of Treatment Not on file documented as of this encounter Visit Diagnoses Not on filedocumented in this encounter Care Teams Banking Specialist Relationship Specialty Start Date End Date Belén Bravo MD [address] [place], [place] [phone] [email or web address] PCP - General Family Medicine 11/01/19 06/08/23 Hayley Pandey MD [address] [place] [address] Historical LMR Provider 01/15/19 03/30/21 Chloé Sánchez CNM [address] [place] [address] Historical LMR Provider 01/15/19 03/30/21 Dayana Galindo MD 15 [facility] [address] [place] [address] [email or web address] Historical LMR Provider 01/15/19 03/30/21 Ruiz Lewis DO [address] [place] [address] [email or web address] Historical LMR Provider 01/15/19 03/30/21 Cain Morales MD [address] [place] [address] [address], [place] [id number] Historical LMR Provider 01/15/19 2 Kate Leal MD 15 [facility] [address] [place] [address] [email or web address] Historical LMR Provider 01/15/19 03/30/21 Tari Willams 15 [facility] [address] [place] [address] Historical LMR Provider 01/15/19 2 Cynthia Allen CNM [address] [place] [address] Drive, [place] [address] Historical LMR Provider 01/15/19 03/30/21 Palak Culver CNM 15 [facility] 102 [place] [address] Historical LMR Provider 01/15/19 03/30/21 Damaso Carranza MD 15 [facility] [address] [place] [address] [email or web address] Historical LMR Provider 01/15/19 Ian Youssef MD 155 [facility] 100 [place] [address] Historical LMR Provider 01/15/19 2 Jc Jacobs MD [address] [place] [address] [email or web address] Historical LMR Provider 01/15/19 03/30/21 [place] [address] [email or web address] Historical LMR Provider 01/15/19 03/30/21 documented as of this encounter Additional Source Comments The information contained in this document represents components of the legal health record. It is not the complete legal health record.[facility]
--- OUTSIDE RECORDS SUMMARY | 2023-11-16 12:17 | XMS_ITS | Encounter Summary ---
Author Organization [facility] Address [phone] [facility] [place] [address] Care Team Providers Care Touch Up Carver Name Role Phone Hayley Pandey MD Unavailable Chloé Sánchez CNM Unavailable [phone] Dayana Galindo MD Unavailable Ruiz Lewis DO Unavailable [email or web address] Cain Morales MD Unavailable [phone] Kate Leal MD Unavailable [phone] Tari Willams Unavailable [phone] Cynthia Allen CNM Unavailable [phone] Palak Culver CNM Unavailable [phone] Damaso Carranza MD Unavailable Ian Youssef MD Unavailable [phone] cJ Jacobs MD Unavailable Eliz Saleem CNM Unavailable [phone] Belén Bravo MD Primary Care Provider [phone] Encounter Details Date Type Department Care Team (Late st Contact Info) Description 07/05/2020 Telephone [facility] [employer] Manuel [address] [address] Yolanda Chaudhari RN [address] [place] [address] [email or web address] Social History Tobacco Use Types Packs/Day Years [...] Progress Notes * Yolanda Chaudhari RN - 07/05/2020 9:57 AM EDT Pt states that she is having increased swelling in her foot/ankle, advised she should follow up with SOS number provided. Pt states understanding documented in this encounter Plan of Treatment Not on file documented as of this encounter Visit Diagnoses Not on filedocumented in this encounter Care Teams Touch Up Carver Relationship Specialty Start Date End Date Belén Bravo MD [address] [place] [address] [email or web address] PCP - General Family Medicine 11/01/19 06/08/23 Hayley Pandey MD [address] [place] [address] [email or web address] Historical LMR Provider 01/15/19 03/30/21 Chloé Sánchez CNM [address] [place] [address] Historical LMR Provider 01/15/19 03/30/21 Dayana Galindo MD 15 [facility] 102 [place] [address] [email or web address] Historical LMR Provider 01/15/19 03/30/21 Ruiz Lewis DO 73 [place] [address] [email or web address] Historical LMR Provider 01/15/19 03/30/21 Cain Morales MD [address] [place] [address] [address] [place] [address] Historical LMR Provider 01/15/19 2 Kate Leal MD 15 [facility] [address] [place] [address] [email or web address] Historical LMR Provider 01/15/19 03/30/21 Tari Willams 15 [facility] 201 [place] [address] Historical LMR Provider 01/15/19 2 Cynthia Allen CNM [address] [facility] [address] [place] [address] [email or web address] Historical LMR Provider 01/15/19 03/30/21 Palak Culver CNM [address] [address] [email or web address] Historical LMR Provider 01/15/19 03/30/21 Damaso Carranza MD 15 [facility] [address] [place] [address] [email or web address] Historical LMR Provider 01/15/19 Ian Youssef MD 155 [facility] 100 [place] [address] Historical LMR Provider 01/15/19 2 Jc Jacobs MD [address] [place] [address] [email or web address] Historical LMR Provider 01/15/19 03/30/21 Eliz Saleem CNM 67 [employer] [facility] [place] [address] [email or web address] Historical LMR Provider 01/15/19 03/30/21 documented as of this encounter Additional Source Comments The information contained in this document represents components of the legal health record. It is not the complete legal health record.[facility]
--- OUTSIDE RECORDS SUMMARY | 2023-11-16 12:17 | XMS_ITS | Continuity of Care Document ---
Author Organization [facility] Address [address] [place] [address] Care Team Providers Care Social Work Coordinator Name Role Phone Camryn Roa Primary Care Physician [phone] Encounter [facility] Date(s): 11/10/23 - 11/10/[address] [phone] [place] Encounter Diagnosis Seizure(Discharge Diagnosis) - 11/10/23 Discharge Disposition: Home or Self Care Attending Physician: Emanuel Bergman MD Admitting Physician: Emanuel Bergman MD Allergies, Adverse Reactions, Alerts Substance Criticality Severity Reaction Reaction Severity Status penicillins Unable to assess criticality Unknown Active Assessment and Plan Extracted from: Title:ED Provider Note Author:Emanuel Bergman MD Date:11/10/23 Assessment/Plan 1.??Seizure??R56.9 Orders: Keppra 500 mg oral tablet, 500 mg = 1 tab, Oral, BID, X 30 days, # 60 tab, 0 Refill(s), 12/10/23 19:44:00 EDT, Pharmacy: [facility], 59.5, kg, 04/23/23 1:09:00 EST, Weight Dosing Discharge Patient, 11/10/23 19:44:00 EDT, Home Independently, Constant Indicator Urine Culture, Urine, Stat collect, ST - Stat, 11/10/23 18:38:00 EDT, Once, Nurse collect, Collected, 11/10/23 18:38:00 EDT, Print Label, [id number] Patient Education Seizure, Adult Follow Up With When Contact Information neurologist Within 1 month Additional Instructions: Camryn Roa SEO ENGINEER Within 1 to 2 weeks [address] [place] [address]- ?? Additional Instructions: Medications Keppra 500 mg oral tablet 500 mg = 1 tab, Oral, BID, X 30 days, # 60 tab, 0 Refill(s), 12/10/23 6:44:00 PM CDT, Pharmacy: [facility], 59.5, kg, 04/23/23 1:09:00 EST, Weight Dosing Start Date: 11/10/23 Stop Date: 12/10/23 Status: Ordered Keppra 500 mg oral tablet 500 mg = 1 tab, Oral, BID, # 60 tab, 1 Refill(s), Pharmacy: [facility], 59.5, kg, 04/23/23 1:09:00 EST, Weight Dosing Start Date: 04/23/23 Status: Ordered Mental Status 11/10/23 Eye Opening Response Venus Spontaneous ly Best Verbal Response Seibert Oriented Best Motor Response Seibert Obeys comman ds Seibert Coma Score 15 Problem List Condition Confirmation Course Effective Dates Status Health St atus Informant New onset seizure Confirmed Active Results Laboratory List Name Date Drug Screen Urine 11/10/23 Lactic Acid 11/10/23 Urinalysis Microscopic 11/10/23 Urinalysis with Micro if Indicated and C ulture if Indicated 11/10/23 .Manual Differential ([facility]) 11/10/23 Alcohol Level 11/10/23 Beta hCG Quantitative 11/10/23 CBC w/ Diff 11/10/23 Comprehensive Metabolic Panel (CMP) 11/09 Most recent to oldest [Reference Range]: 1 WBC [5.0-10.0 x10^3/mcL] 9.0 x10^3/mcL (11/10/23 5:54 PM) RBC [4.1-5.3 x10^6/mcL] 4.2 x10^6/mcL (11/10/23 5:54 PM) Segs Man [40-75 %] 81 % *HI* (11/10/23 5:54 PM) Lymph Man [20-50 %] 11 % *LOW* (11/10/23 5:54 PM) [place] Man [2-15 %] 8 % (11/10/23 5:54 PM) Eos Man [1-6 %] 0 % *LOW* (11/10/23 5:54 PM) BUN [7-18 mg/dL] 8 mg/dL (11/10/23 5:54 PM) U Amph Scrn [Negative] Negative 1 (11/10/23 7:10 PM) UA Color Yellow (11/10/23 6:38 PM) UA WBC [0-3] 3-5 *ABN* (11/10/23 6:38 PM) Glucose Level [74-106 mg/dL] 112 mg/dL *HI* (11/10/23 5:54 PM) Potassium Level [3.5-5.1 mmol/L] 3.5 mmo l/L (11/10/23 5:54 PM) U Benzodia Scrn [Negative] Negative (11/10/23 7:10 PM) MCV [80.0-96.0 fL] 92.7 fL (11/10/23 5:54 PM) UA Urobilinogen Normal *NA* (11/10/23 6:38 PM) RBC Morph Normal (11/10/23 5:54 PM) UA Bili [Negative] Negative *NA* (11/10/23 6:38 PM) UA Ketones Negative *NA* (11/10/23 6:38 PM) AST [15-37 unit/L] 23 unit/L (11/10/23 5:54 PM) ALT [14-59 unit/L] 26 unit/L (11/10/23 5:54 PM) MCHC [31.0-35.0 g/dL] 36.3 g/dL *HI* (11/10/23 5:54 PM) Sodium Level [136-145 mmol/L] 138 mmol/L (11/10/23 5:54 PM) UA RBC [0-2] 3-5 (11/10/23 6:38 PM) UA Leuk Est Trace *ABN* (11/10/23 6:38 PM) UA Nitrite Negative *NA* (11/10/23 6:38 PM) UA Glucose [Negative] Negative *NA* (11/10/23 6:38 PM) Hct [37.0-47.0 %] 39.1 % (11/10/23 5:54 PM) UA Bacteria Few /HPF *ABN* (11/10/23 6:38 PM) U Cocaine Scrn [Negative] Negative (11/10/23 7:10 PM) Calcium Level [8.5-10.1 mg/dL] 8.7 mg/dL (11/10/23 5:54 PM) Albumin Level [3.4-5.0 g/dL] 4.1 g/dL (11/10/23 5:54 PM) Protein Total [6.4-8.2 g/dL] 7.0 g/dL (11/10/23 5:54 PM) UA Protein 2+ *ABN* (11/10/23 6:38 PM) MCH [26.0-32.0 pg] 33.6 pg *HI* (11/10/23 5:54 PM) Bilirubin Total [0.2-1.0 mg/dL] 1.8 mg/d L *HI* (11/10/23 5:54 PM) Hgb [12.0-16.0 g/dL] 14.2 g/dL (11/10/23 5:54 PM) Alk Phos [46-146 unit/L] 49 unit/L (11/10/23 5:54 PM) UA Blood 2+ *ABN* (11/10/23 6:38 PM) Ethanol Level [0-10 mg/dL] <5 mg/dL (11/10/23 5:54 PM) UA Mucous None Seen /HPF (11/10/23 6:38 PM) Band Man [0-5 %] 0 % (11/10/23 5:54 PM) UA Spec Grav 1.025 *NA* (11/10/23 6:38 PM) Platelets [130-450 x10^3/mcL] 204 x10^3/ mcL (11/10/23 5:54 PM) CO2 [21-32 mmol/L] 21 mmol/L (11/10/23 5:54 PM) U Richelle Scrn [Negative] Negative (11/10/23 7:10 PM) Lactic Acid Lvl [0.7-2.0 mmol/L] 2.7 mmo l/L 2 *CRIT* (11/10/23 6:38 PM) UA Squam Epithelial [None Seen] Many *ABN* (11/10/23 6:38 PM) UA pH 6.0 *NA* (11/10/23 6:38 PM) U Opiate Scrn [Negative] Negative (11/10/23 7:10 PM) eGFR Non-AA [>=60] 109 (11/10/23 5:54 PM) eGFR AA [>=60] 109 (11/10/23 5:54 PM) UA Appear Hazy *ABN* (11/10/23 6:38 PM) Chloride Level [98-107 mmol/L] 102 mmol/ L (11/10/23 5:54 PM) U Oxy Scrn [Negative] Negative (11/10/23 7:10 PM) U PCP Scrn [Negative] Negative (11/10/23 7:10 PM) RDW-CV [11.5-14.5 %] 12.0 % (11/10/23 5:54 PM) U THC Scr [Negative] Positive *ABN* (11/10/23 7:10 PM) U Methadone Scr [Negative] Negative (11/10/23 7:10 PM) Slide Review Man Diff (11/10/23 5:54 PM) UA Culture Ind?. Indicated (11/10/23 6:38 PM) U Buprenorph Scr [Negative] Negative (11/10/23 7:10 PM) U mAMP Scr [Negative] Negative (11/10/23 7:10 PM) U TCA Scr [Negative] Negative (11/10/23 7:10 PM) Abs Neut Man 7.3 x10^3/mcL *NA* (11/10/23 5:54 PM) Creatinine Level [0.55-1.02 mg/dL] 0.74 mg/dL (11/10/23 5:54 PM) Baso Man [0-1 %] 0 % (11/10/23 5:54 PM) Beta hCG Qnt [1-6 mIntlUnit/mL] <1 mIntl Unit/mL *LOW* (11/10/23 5:54 PM) 1Interpretive Data: These are unconfirmed screening results, to [...] Neg (300 ng/mL) BUP Neg (10 ng/mL) 2Result Comment: Called to and verbally verified by Oscar Goldberg at 11/10/2023 18:51:45 EDT. Orders for Microbiology Reports Name Date Urine Culture 11/10/23 Microbiology Reports TEST:Urine Culture STATUS:Order in Progress BODY SITE: SOURCE:Urine COLLECTED DATE/TIME:11/10/23 6:38 PM PRELIMINARY REPORT No growth at 24 hours. Vital Signs Most recent to oldest [Reference Range]: 1 2 3 Temperature Temporal Artery [36-38 Deg C] 36.8 Deg C (11/10/23 5:50 PM) Peripheral Pulse Rate [60-100 bpm] 90 bpm (11/10/23 8:03 PM) 80 bpm (11/10/23 7:59 PM) 80 bpm (11/10/23 7:34 PM) Heart Rate Monitored [60-100 bpm] 88 bpm (11/10/23 8:03 PM) 80 bpm (11/10/23 7:59 PM) 80 bpm (11/10/23 7:34 PM) Respiratory Rate [12-24 br/min] 21 br/min (11/10/23 8:03 PM) 23 br/min (11/10/23 7:59 PM) 21 br/min (11/10/23 7:34 PM) Blood Pressure [90-140/60-90 mmHg] 100/67mmHg (11/10/23 6:30 PM) 111/81mmHg (11/10/23 6:15 PM) 113/85mmHg (11/10/23 6:00 PM) Mean Arterial Pressure, Cuff [65-140 mmHg] 78 mmHg (11/10/23 6:30 PM) 91 mmHg (11/10/23 6:15 PM) 94 mmHg (11/10/23 6:00 PM) Social History Social History Type Response Tobacco Former tobacco user Tobacco Use:. Sex Female Sex Representation Female (finding) Hospital Discharge Instructions Patient Education 11/10/2023 18:45:51 Seizure, Adult Seizure, Adult A seizure is [...] these instructions at home: Medicines ??? Take [id number] and prescription medicines only as told by [...] medicines are used to treat seizures. Take [id number]-[id number] and prescription medicines only as told by your health care provider. This information is not intended to replace advice given to you by your health care provider. Make sure you discuss any questions you have with your health care provider. Document Revised: 09/14/2020 Document Reviewed: 09/14/2020 Elsevier Patient Education ?? 2022 [employer] Follow Up Care 11/10/2023 17:48:49 With:neurologist Address: When:1 month With:Camryn Roa NP Address: [address] [place] [id number]- When:1 to 2 weeks Physician Emergency department Note * Emanuel Bergman MD: PERFORM Event Display: ED Note Physician Authored Date: [id number] CHRISTIANA HERNANDEZ :1990 Age:33 years Sex:Female Visit Date:11/10/2023 Primary Care Physician: Camryn Roa NP Basic Information Time Seen: Emanuel Bergman MD / 11/10/2023 18:19 Chief Complaint PT came to ED with C/O 30 second seizure. Pt states hx of but hasn't had one in a year. Pt has beenoff seizure meds for 10 months. History Of Present Illness: 33-year-old female brought in by ambulance because of a seizure. ??The patient states that althoughshe did not quite feel right??felt a little woozy??and had an aura or sensation that she would havea seizure.?? She went to lie down on the couch and by report proceeded to have a 30 seconds seizure.?? Patient states her reported that she was foaming at the mouth.?? Has a bit of a headache? ?which is not unusual. ??She feels like the presentation is identical to previous seizures she had notably??here last??April. ??At that time she had an MRI of her brain??report of which I reviewedin the chart here.?? 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 ??She had surgery on her eyes also.?? She reports smoking marijuana but no other street drugs. ??No chest pain??abdominal pain. ??She was not incontinent of urine and she did not bite her tongue.?? She was seen by teleneurology when she was here last April and??she was started on Keppra 500 twice a day.?? She reports that Keppra??caused some??rage and therefore she elected to stop it after speaking with her PCP at the [facility].?? She was supposed to be seen by neurology at [facility] in follow-up but according to chart she no showed??on an appointment last August.?? No reported trauma. Review of Systems: Per HPI Physical Exam Vitals & Measurements T:??36.8?C ??(Temporal Artery)?? HR:??90??(Peripheral)?? HR:??88??(Monitored)?? RR:??21?? BP:??100/67?? SpO2:??97%?? O2 Therapy:??Room air?? General:??alert,??no acute distress.?? Normal mentation here, does not appear to be encephalopathic, looks tired,but is able to relate his story normally. Skin:??warm,??dry. Head:??no??trauma,??normocephalic. Neck:??trachea??midline,??no??adenopathy,??no??tenderness.?? Supple Eye:??normal??conjunctiva, sclera??clear.?? Ptosis of the right upper eyelid noted,right pupil is bigger than the left??she states it isknown and not From . Cardiovascular:??regular??rate and rhythm,??normal??peripheral perfusion. Respiratory: lungs??CTA, respirations??non-labored. Chest wall:??no??deformity. Gastrointestinal:??soft,??non distended,??no??tenderness,??no??guarding. Extremities:??no??deformity,??no??trauma. Neurological:??oriented??x 4, LOC??appropriate for age,??speech is normal, no facial droop,??moves all 4 extremities,??speech??normal. Psychiatric:??cooperative, affect??appropriate for age,? Medical Decision Making: Medical Decision-Making: Clinical lab tests: ordered and reviewed -??Yes Tests in the radiology section of CPT??: ordered and reviewed -??Yes Tests in the medicine section of CPT??: ordered and reviewed -??Yes ?? Obtain history from someone other than the patient -??Yes, ems Review and summarize past medical records -??Yes Discuss the patient with other providers -??Yes Independent visualization of images, tracings, or specimens? Yes ?? Patient stable here. ??She got a dose of IV Keppra 1 g.?? She was supposed to be seen by neurology last year but she no showed. ??She does remember that appointment??that had been set up for her.?? Will put her back on Keppra, she agrees, I told her she could follow-up with neurology and??and??decide if other??antiepileptic medicines might be better tolerated??if ever it causes some mood swings.?? Does not look septic otherwise do not think it is meningitis or encephalitis. ??She has a previoushistory of??surgery for Chiari malformation.?? CT scan shows no acute new findings. ??She admits smoking marijuana but no other stronger drugs.?? Ultimately will be discharged in stable condition ?? Last 24 Hours?? Chemistry ? Event Name?? Event Result?? Date/Time?? Sodium Level 138 mmol/L 11/10/23 17:54:00 Potassium Level 3.5 mmol/L 11/10/23 17:54:00 Chloride Level 102 mmol/L 11/10/23 17:54:00 CO2 21 mmol/L 11/10/23 17:54:00 Alk Phos 49 unit/L 11/10/23 17:54:00 AST 23 unit/L 11/10/23 17:54:00 ALT 26 unit/L 11/10/23 17:54:00 BUN 8 mg/dL 11/10/23 17:54:00 Glucose Level 112 mg/dL??High 11/10/23 17:54:00 Creatinine Level 0.74 mg/dL 11/10/23 17:54:00 eGFR AA 109 11/10/23 17:54:00 eGFR Non-AA 109 11/10/23 17:54:00 Calcium Level 8.7 mg/dL 11/10/23 17:54:00 Protein Total 7 g/dL 11/10/23 17:54:00 Albumin Level 4.1 g/dL 11/10/23 17:54:00 Bilirubin Total 1.8 mg/dL??High 11/10/23 17:54:00 Lactic Acid Lvl 2.7 mmol/L??Critical 11/10/23 18:38:00 Beta hCG Qnt <1??Low 11/10/23 17:54:00 ? Hematology ? Event Name?? Event Result?? Date/Time?? WBC 9 x10^3/mcL 11/10/23 17:54:00 RBC 4.2 x10^6/mcL 11/10/23 17:54:00 Hgb 14.2 g/dL 11/10/23 17:54:00 Hct 39.1 % 11/10/23 17:54:00 MCV 92.7 fL 11/10/23 17:54:00 MCH 33.6 pg??High 11/10/23 17:54:00 MCHC 36.3 g/dL??High 11/10/23 17:54:00 RDW-CV 12 % 11/10/23 17:54:00 Platelets 204 x10^3/mcL 11/10/23 17:54:00 Segs Man 81 %??High 11/10/23 17:54:00 Lymph Man 11 %??Low 11/10/23 17:54:00 [place] Man 8 % 11/10/23 17:54:00 Eos Man 0 %??Low 11/10/23 17:54:00 Baso Man 0 % 11/10/23 17:54:00 Band Man 0 % 11/10/23 17:54:00 Abs Neut Man 7.3 x10^3/mcL 11/10/23 17:54:00 RBC Morph Normal 11/10/23 17:54:00 Slide Review Man Diff 11/10/23 17:54:00 ? Urinalysis ? Event Name?? Event Result?? Date/Time?? UA Color YELLOW. 11/10/23 18:38:00 UA Appear Hazy- Clinitek Abnormal 11/10/23 18:38:00 UA Glucose NEGATIVE 11/10/23 18:38:00 UA Bili NEGATIVE 11/10/23 18:38:00 UA Ketones NEGATIVE 11/10/23 18:38:00 UA Spec Grav 1.025 11/10/23 18:38:00 UA Blood 2+ Abnormal 11/10/23 18:38:00 UA pH 6.0 11/10/23 18:38:00 UA Protein 2+ Abnormal 11/10/23 18:38:00 UA Urobilinogen 0.2 Uro 11/10/23 18:38:00 UA Nitrite NEGATIVE 11/10/23 18:38:00 UA Leuk Est TRACE. Abnormal 11/10/23 18:38:00 ? All Other Results ? Event Name?? Event Result?? Date/Time?? Ethanol Level <5 11/10/23 17:54:00 ?* Final Report * ?? CT Brain/Head w/o Contrast PROCEDURE INFORMATION:?? Exam: CT Head Without Contrast?? Exam date and time: 11/10/2023 6:44 PM?? Age: 33 years old?? Clinical indication: Seizure, h/a? TECHNIQUE:?? Imaging protocol: Computed tomography of the head without contrast.?? Radiation optimization: All CT scans at this facility use at least?? one of these dose optimization techniques: automated exposure?? control; mA and/or kV adjustment per patient size (includes targeted?? exams where dose is matched to clinical indication); or iterative?? reconstruction.? COMPARISON:?? MR BRAIN W/WO CONTRAST 04/23/2023 11:27 AM? FINDINGS:?? Brain: The IACs are grossly normal. No evidence of acute intracranial?? hemorrhage. Cerebral/cerebellar caicedo-white differentiation is well?? maintained. No CT evidence of large territory acute or subacute?? intracranial ischemia/infarct. No intracranial mass lesions. Chronic?? prominent perivascular space in the anterior right external capsule?? distribution unchanged from prior imaging as far back as 08/28/2021.?? No midline shift or herniation.?? Cerebral ventricles: Nondilated ventricles.?? Pituitary gland and sella: The sella is grossly normal.?? Paranasal sinuses: Mucous retention cyst versus polyp formation in?? the right maxillary sinus suggesting mild chronic sinus inflammatory?? disease. No fluid levels. Visualized paranasal sinuses are otherwise?? clear.?? Mastoid air cells: Visualized mastoid air cells are clear.?? Orbital cavities: No acute intraorbital findings.?? Bones: No acute osseous findings. Chronic changes of remote prior?? suboccipital craniectomy.?? Soft tissues: No acute soft tissue findings.?? Vasculature: No gross vascular abnormalities. No asymmetric vascular?? hyperdensities suggestive of thrombosis are identified.? IMPRESSION:?? 1. ?? No acute intracranial process. No intracranial hemorrhage or?? mass effect.?? 2. ?? Mild chronic right maxillary sinusitis.?? 3. ?? Chronic changes of remote prior suboccipital craniectomy.?? 4. ?? Chronic variant prominent perivascular space in the anterior?? right external capsule distribution unchanged.? Report signed by: Ian Tang On 11/10/2023 ??19:33:13 [1] Procedure No Qualifying Data Assessment/Plan 1.??Seizure??R56.9 Orders: Keppra 500 mg oral tablet, 500 mg = 1 tab, Oral, BID, X 30 days, # 60 tab, 0 Refill(s), 12/10/23 19:44:00 EDT, Pharmacy: [facility], 59.5, kg, 04/23/23 1:09:00 EST, Weight Dosing Discharge Patient, 11/10/23 19:44:00 EDT, Home Independently, Constant Indicator Urine Culture, Urine, Stat collect, ST - Stat, 11/10/23 18:38:00 EDT, Once, Nurse collect, Collected, 11/10/23 18:38:00 EDT, Print Label, [id number] Patient Education Seizure, Adult Follow Up With When Contact Information neurologist Within 1 month Additional Instructions: Camryn Roa SEO ENGINEER Within 1 to [address] [place] [id number]- Additional Instructions: Medication Reconciliation Changed levETIRAcetam (Keppra 500 mg oral tablet)1 tab Oral (given by mouth) 2 times a day for 30 Days. Refills: 0. ?? levETIRAcetam (Keppra 500 mg oral tablet)1 tab Oral (given by mouth) 2 times a day. Refills: 1. Problem List/Past Medical History Ongoing New onset seizure Historical No qualifying data Medication Administration Given 0.9% NaCl bolus, 1000 mL, Hydration Bolus Keppra, IV Piggyback Allergies penicillins Social History Electronic Cigarette/Vaping Electronic Cigarette Use: Use, within last 90 days. Tobacco Former tobacco user Tobacco Use:. Lab Results CBC and Differential?? LATEST RESULTS?? HISTORICAL RESULTS?? WBC?? 11/10/23 17:54?? 9.0?? 04/23/23?? 6.0?? RBC?? 11/10/23 17:54?? 4.2?? 04/23/23?? 3.8 ??Low?? Hgb?? 11/10/23 17:54?? 14.2?? 04/23/23?? 12.9?? Hct?? 11/10/23 17:54?? 39.1?? 04/23/23?? 36.6 ??Low?? MCV?? 11/10/23 17:54?? 92.7?? 04/23/23?? 95.1?? MCH?? 11/10/23 17:54?? 33.6 ??High?? 04/23/23?? 33.5 ??High?? MCHC?? 11/10/23 17:54?? 36.3 ??High?? 04/23/23?? 35.2 ??High?? RDW-CV?? 11/10/23 17:54?? 12.0?? 04/23/23?? 11.9?? Platelets?? 11/10/23 17:54?? 204?? 04/23/23?? 154?? Segs Man?? 11/10/23 17:54?? 81 ??High? Lymph Man?? 11/10/23 17:54?? 11 ??Low? [place] Man?? 11/10/23 17:54?? 8? Eos Man?? 11/10/23 17:54?? 0 ??Low? Baso Man?? 11/10/23 17:54?? 0? Band Man?? 11/10/23 17:54?? 0? Abs Neut Man?? 11/10/23 17:54?? 7.3? RBC Morph?? 11/10/23 17:54?? Normal? Slide Review?? 11/10/23 17:54?? Man Diff? Routine Chemistry?? LATEST RESULTS?? HISTORICAL RESULTS?? Sodium Level?? 11/10/23 17:54?? 138?? 04/23/23?? 139?? Potassium Level?? 11/10/23 17:54?? 3.5?? 04/23/23?? 3.3 ??Low?? Chloride Level?? 11/10/23 17:54?? 102?? 04/23/23?? 105?? CO2?? 11/10/23 17:54?? 21?? 04/23/23?? 25?? Alk Phos?? 11/10/23 17:54?? 49?? 04/22/23?? 44 ??Low?? AST?? 11/10/23 17:54?? 23?? 04/22/23?? 63 ??High?? ALT?? 11/10/23 17:54?? 26?? 04/22/23?? 42?? BUN?? 11/10/23 17:54?? 8?? 02/01/24?? 8?? Glucose Level?? 11/10/23 17:54?? 112 ??High?? 04/23/23?? 91?? Creatinine Level?? 11/10/23 17:54?? 0.74?? 04/23/23?? 0.63?? eGFR AA?? 11/10/23 17:54?? 109?? 04/23/23?? 121?? eGFR Non-AA?? 11/10/23 17:54?? 109?? 04/23/23?? 121?? Calcium Level?? 11/10/23 17:54?? 8.7?? 04/23/23?? 8.1 ??Low?? Protein Total?? 11/10/23 17:54?? 7.0?? 04/22/23?? 7.2?? Albumin Level?? 11/10/23 17:54?? 4.1?? 04/22/23?? 4.2?? Bilirubin Total?? 11/10/23 17:54?? 1.8 ??High?? 04/22/23?? 2.7 ??High?? Lactic Acid Lvl?? 11/10/23 18:38?? 2.7 ??Critical? Testing?? LATEST RESULTS?? Beta hCG Qnt?? 11/10/23 17:54?? <1 ??Low? Serum Toxicology?? LATEST RESULTS?? HISTORICAL RESULTS?? Ethanol Level?? 11/10/23 17:54?? <5?? 04/22/23?? <5? Urine Toxicology?? LATEST RESULTS?? HISTORICAL RESULTS?? U Amph Scrn?? 11/10/23 19:10?? Negative?? 04/22/23?? Negative?? U Richelle Scrn?? 11/10/23 19:10?? Negative?? 04/22/23?? Negative?? U Benzodia Scrn?? 11/10/23 19:10?? Negative?? 04/22/23?? Negative?? U Buprenorph Scr?? 11/10/23 19:10?? Negative?? 04/22/23?? Negative?? U Cocaine Scrn?? 11/10/23 19:10?? Negative?? 04/22/23?? Negative?? U TCA Scr?? 11/10/23 19:10?? Negative?? 04/22/23?? Negative?? U THC Scr?? 11/10/23 19:10?? Positive Abnormal?? 04/22/23?? Positive Abnormal?? U mAMP Scr?? 11/10/23 19:10?? Negative?? 04/22/23?? Negative?? U Methadone Scr?? 11/10/23 19:10?? Negative?? 04/22/23?? Negative?? U Opiate Scrn?? 11/10/23 19:10?? Negative?? 04/22/23?? Negative?? U Oxy Scrn?? 11/10/23 19:10?? Negative?? 04/22/23?? Negative?? U PCP Scrn?? 11/10/23 19:10?? Negative?? 04/22/23?? Negative? UA Macroscopic?? LATEST RESULTS?? HISTORICAL RESULTS?? UA Color?? 11/10/23 18:38?? Yellow?? 04/22/23?? Yellow?? UA Appear?? 11/10/23 18:38?? Hazy Abnormal?? 04/22/23?? Clear?? UA Glucose?? 11/10/23 18:38?? Negative?? 04/22/23?? 1+ Abnormal?? UA Bili?? 11/10/23 18:38?? Negative?? 04/22/23?? 1+ Abnormal?? UA Ketones?? 11/10/23 18:38?? Negative?? 04/22/23?? Negative?? UA Spec Grav?? 11/10/23 18:38?? 1.025?? 04/22/23?? 1.015?? UA Blood?? 11/10/23 18:38?? 2+ Abnormal?? 04/22/23?? 1+ Abnormal?? UA pH?? 11/10/23 18:38?? 6.0?? 04/22/23?? 8.0?? UA Protein?? 11/10/23 18:38?? 2+ Abnormal?? 04/22/23?? 3+ Abnormal?? UA Urobilinogen?? 11/10/23 18:38?? Normal?? 04/22/23?? Normal?? UA Nitrite?? 11/10/23 18:38?? Negative?? 04/22/23?? Negative?? UA Leuk Est?? 11/10/23 18:38?? Trace Abnormal?? 04/22/23?? Negative?? UA Culture Ind?.?? 11/10/23 18:38?? Indicated?? 04/22/23?? Indicated? UA Microscopic?? LATEST RESULTS?? HISTORICAL RESULTS?? UA WBC?? 11/10/23 18:38?? 3-5 Abnormal?? 04/22/23?? 3-5 Abnormal?? UA RBC?? 11/10/23 18:38?? 3-5?? 04/22/23?? 3-5?? UA Squam Epithelial?? 11/10/23 18:38?? Many Abnormal?? 04/22/23?? Rare?? UA Mucous?? 11/10/23 18:38?? None Seen?? 04/22/23?? Few Abnormal?? UA Bacteria?? 11/10/23 18:38?? Few Abnormal?? 04/22/23?? Moderate Abnormal? [1]??CT Brain/Head w/o Contrast; [employer], Generated 11/10/2023 18:44 EDT Electronically Signed on 11/10/2023 20:57 EDT Emanuel Bergman MD Emergency department Discharge instructions * Emanuel Bergman MD: PERFORM Event Display: ED Discharge Information Authored Date: [id number] CHRISTIANA HERNANDEZ :1990 Age:33 years Sex:Female Visit Date:11/10/2023 Primary Care Physician: Camryn Roa SEO ENGINEER Discharge Instructions We would like to thank you for allowing us to assist you with your healthcare needs. The following includes patient education materials and information regarding your injury/illness. Diagnosis from Today's Visit Seizure Discharge Vitals Temperature??(Temporal Artery) 98.2 ??F (36.8 ??C) Heart Rate??(Peripheral) 80 Heart Rate??(Monitored) 80 Respiratory Rate?? 21 Blood Pressure?? 124/85?? SpO2?? 97% Allergies penicillins What to Do Next Instructions from Your Care Team Do not drive until you can recheck with your doctor.?? Talk to your doctor??about setting up??once more the referral to neurology.?? A prescription for Keppra to take twice a day was sent to your pharmacy. You Need to Schedule the Following Appointments Follow Up with??neurologist When:??Within 1 month Follow Up with??Camryn Roa [employer] When:??Within 1 to 2 weeks Where: [address] [place] [id number]- You were treated today on an emergency basis; it may be arriaga to contact your primary care provider to notify them of your visit today. You may have been referred to your regular doctor or a specialist, please follow up as instructed. If your condition worsens or you can't get in to see the doctor, contact the Emergency Department. Medications What How Much When Instructions Next Dose Changed levETIRAcetam (Keppra 500 mg oral tablet) 1 tab Oral (given by mouth) 2 times a day Duration: 30 Days Pickup at [facility] Changed levETIRAcetam (Keppra 500 mg oral tablet) 1 tab Oral (given by mouth) 2 times a day Pharmacy Information [facility] #58: [address] [place], [place] [id number] [phone] Education Materials Seizure, Adult A seizure is a sudden [...] causes? Common causes of this condition include: ? Fever or infection. ? Brain injury, head trauma, bleeding in the brain, or a brain tumor. ? Low levels of blood sugar or salt (sodium). ? Kidney problems or liver problems. ? Metabolic disorders or other conditions that are passed from parent to child (are inherited). ? Reaction to a substance, such as a drug or a medicine, or suddenly stopping the use of a substance (withdrawal). ? A stroke. ? Developmental disorders such as autism spectrum disorder or cerebral palsy. In some cases, the cause of a seizure may not be known. Some people who have a seizure never have another one. A person who has repeated seizures over time without a clear cause has a condition called epilepsy. What increases the risk? You are more likely to develop this condition if: ? You have a family history of epilepsy. ? You have had a tonic???clonic seizure before. This type of seizure causes tightening (contraction) of the muscles of the whole body and loss of consciousness. ? You have a history of head trauma, [...] include the following: Symptoms during a seizure ? Uncontrollable shaking (convulsions) with fast, jerky movements of muscles. ? Stiffening of the body. ? Breathing problems. ? Confusion, staring, or unresponsiveness. ? Head nodding, eye blinking or fluttering, or rapid eye movements. ? Drooling, grunting, or making clicking sounds with your mouth. ? Loss of bladder control and bowel control. Symptoms before a seizure ? Fear or anxiety. ? Nausea. ? Vertigo. This is a feeling like: ? You are moving when you are not. ? Your surroundings are moving when they are not. ? D??j?? vu. This is a feeling of having seen or heard something before. ? Odd tastes or smells. ? Changes in vision, such as seeing flashing lights or spots. Symptoms after a seizure ? Confusion. ? Sleepiness. ? Headache. ? Sore muscles. How is this diagnosed? This condition may be diagnosed based on: ? A description of your symptoms. Video of your seizures can be helpful. ? Your medical history. ? A physical exam. You may also have tests, including: ? Blood tests. ? CT scan. ? MRI. ? Electroencephalogram (EEG). This test measures electrical activity in the brain. An EEG can predictwhether seizures will return. ? A spinal tap, also called a lumbar puncture. This is the removal and testing of fluid that surrounds the brain and spinal cord. How is this treated? Most seizures will stop on their own in less than 5 minutes, and no treatment is needed. Seizures that last longer than 5 minutes will usually need treatment. Seizures may be treated with: ? Medicines given through an IV. ? Avoiding known triggers, such as medicines that you take for another condition. ? Medicines to control seizures or prevent future seizures (antiepileptics), if epilepsy caused your seizures. ? Medical devices to prevent and control seizures. ? Surgery to stop seizures or to reduce how often seizures happen, if you have epilepsy that does notrespond to medicines. ? A diet low in carbohydrates and high in fat (ketogenic diet). Follow these instructions at home: Medicines ? Take ybgz-yea-fvsocrm and prescription medicines only as told by your health care provider. ? Avoid any substances that may prevent your medicine from working properly, such as alcohol. Activity ? Follow instructions about activities, such as driving or swimming, that would be dangerous if you had another seizure. Wait until your health care provider says it is safe to do them. ? If you live in the [place] check with your local department of motor vehicles (DMV) to find out aboutlocal driving laws. Each state has specific rules about when you can legally drive again. ? Get enough rest. Lack of sleep can make seizures more likely to occur. Educating others ? Teach friends and family what to do if you have a seizure. They should: ? Help you get down to the ground, to prevent a fall. ? Cushion your head and move items away from your body. ? Loosen any tight clothing around your neck. ? Turn you on your side. If you vomit, this helps keep your airway clear. ? Know whether or not you need emergency care. ? Stay with you until you recover. ? Also, tell them what not to do if you have a seizure. Tell them: ? They should not hold you down. Holding you down will not stop the seizure. ? They should not put anything in your mouth. General instructions ? Avoid anything that has ever triggered a seizure for you. ? Keep a seizure diary. Record what you remember about each seizure, especially anything that might have triggered it. ? Keep all follow-up visits. This is important. Contact a health care provider if: ? You have another seizure or seizures. Call each time you have a seizure. ? Your seizure pattern changes. ? You continue to have seizures with treatment. ? You have symptoms of an infection or illness. Either of these might increase your risk of having a seizure. ? You are unable to take your medicine. Get help right away if: ? You have: ? A seizure that does not stop after 5 minutes. ? Several seizures in a row without a complete recovery between seizures. ? A seizure that makes it harder to breathe. ? A seizure that leaves you unable to speak or use a part of your body. ? You do not wake up right away after a seizure. ? You injure yourself during a seizure. ? You have confusion or pain right after a seizure. These symptoms may represent a serious problem that is an emergency. Do not wait to see if the symptoms will go away. Get medical help right away. Call your local emergency services (911 in the [place] Do not drive yourself to the hospital. Summary ? Seizures are caused by abnormal electrical and chemical activity in the brain. The activity disrupts normal brain function and can cause various symptoms. ? Seizures have many causes, including illness, head injuries, low levels of blood sugar or salt, andcertain conditions. ? Most seizures will stop on their own in less than 5 minutes. Seizures that last longer than 5 minutes are a medical emergency and need treatment right away. ? Many medicines are used to treat seizures. Take qumq-vkh-ojpjiyh and prescription medicines only astold by your health care provider. This information is not intended to replace advice given to you by your health care provider. Make sure you discuss any questions you have with your health care provider. Document Revised: 09/14/2020 Document Reviewed: 09/14/2020 [employer] Patient Education ?? 2022 [employer] Tests Performed Medications and Immunizations Administered Given 0.9% NaCl bolus, 1000 mL, Hydration Bolus Keppra, IV Piggyback Lab Test Name Test Result Date/Time WBC 9.0 x10^3/mcL 11/10/2023 17:54 EDT RBC 4.2 x10^6/mcL 11/10/2023 17:54 EDT Hgb 14.2 g/dL 11/10/2023 17:54 EDT Hct 39.1 % 11/10/2023 17:54 EDT MCV 92.7 fL 11/10/2023 17:54 EDT MCH 33.6 pg 11/10/2023 17:54 EDT MCHC 36.3 g/dL 11/10/2023 17:54 EDT RDW-CV 12.0 % 11/10/2023 17:54 EDT Platelets 204 x10^3/mcL 11/10/2023 17:54 EDT Segs Man 81 % 11/10/2023 17:54 EDT Lymph Man 11 % 11/10/2023 17:54 EDT [place] Man 8 % 11/10/2023 17:54 EDT Eos Man 0 % 11/10/2023 17:54 EDT Baso Man 0 % 11/10/2023 17:54 EDT Band Man 0 % 11/10/2023 17:54 EDT Abs Neut Man 7.3 x10^3/mcL 11/10/2023 17:54 EDT RBC Morph Normal 11/10/2023 17:54 EDT Slide Review Man Diff 11/10/2023 17:54 EDT Sodium Level 138 mmol/L 11/10/2023 17:54 EDT Potassium Level 3.5 mmol/L 11/10/2023 17:54 EDT Chloride Level 102 mmol/L 11/10/2023 17:54 EDT CO2 21 mmol/L 11/10/2023 17:54 EDT Alk Phos 49 unit/L 11/10/2023 17:54 EDT AST 23 unit/L 11/10/2023 17:54 EDT ALT 26 unit/L 11/10/2023 17:54 EDT BUN 8 mg/dL 11/10/2023 17:54 EDT Glucose Level 112 mg/dL 11/10/2023 17:54 EDT Creatinine Level 0.74 mg/dL 11/10/2023 17:54 EDT eGFR AA 109 11/10/2023 17:54 EDT eGFR Non-AA 109 11/10/2023 17:54 EDT Calcium Level 8.7 mg/dL 11/10/2023 17:54 EDT Protein Total 7.0 g/dL 11/10/2023 17:54 EDT Albumin Level 4.1 g/dL 11/10/2023 17:54 EDT Bilirubin Total 1.8 mg/dL 11/10/2023 17:54 EDT Lactic Acid Lvl 2.7 mmol/L 11/10/2023 18:38 EDT Beta hCG Qnt <1 mIntlUnit/mL 11/10/2023 17:54 EDT Ethanol Level <5 mg/dL 11/10/2023 17:54 EDT U Amph Scrn NEGATIVE 11/10/2023 19:10 EDT U Richelle Scrn NEGATIVE 11/10/2023 19:10 EDT U Benzodia Scrn NEGATIVE 11/10/2023 19:10 EDT U Buprenorph Scr NEGATIVE 11/10/2023 19:10 EDT U Cocaine Scrn NEGATIVE 11/10/2023 19:10 EDT U TCA Scr NEGATIVE 11/10/2023 19:10 EDT U THC Scr POSITIVE 11/10/2023 19:10 EDT U mAMP Scr NEGATIVE 11/10/2023 19:10 EDT U Methadone Scr NEGATIVE 11/10/2023 19:10 EDT U Opiate Scrn NEGATIVE 11/10/2023 19:10 EDT U Oxy Scrn NEGATIVE 11/10/2023 19:10 EDT U PCP Scrn NEGATIVE 11/10/2023 19:10 EDT UA Color YELLOW. 11/10/2023 18:38 EDT UA Appear Hazy- Clinitek 11/10/2023 18:38 EDT UA Glucose NEGATIVE 11/10/2023 18:38 EDT UA Bili NEGATIVE 11/10/2023 18:38 EDT UA Ketones NEGATIVE 11/10/2023 18:38 EDT UA Spec Grav 1.025 11/10/2023 18:38 EDT UA Blood 2+ 11/10/2023 18:38 EDT UA pH 6.0 11/10/2023 18:38 EDT UA Protein 2+ 11/10/2023 18:38 EDT UA Urobilinogen 0.2 Uro 11/10/2023 18:38 EDT UA Nitrite NEGATIVE 11/10/2023 18:38 EDT UA Leuk Est TRACE. 11/10/2023 18:38 EDT Patient/Tree Worker Signature Patient Name:CHRISTIANA HERNANDEZ I have received this information and my questions have been answered. Patient/Tree Worker Name: Patient/Tree Worker Signature: Relationship to Patient: Witness Name/Signature: Date: Electronically Signed on: 11/10/2023 19:47 EDTSigned by:HAMMAD Patient Care team information Care Team Personnel Name: Camryn Roa SEO ENGINEER Position: PowerChart View Only Member Role: Informed Provider Address: [address] [place] [address] Care Team Related Persons Name: ZAC HERNANDEZ Insurance Providers Guarantor name: CHRISTIANA HERNANDEZ Health Plan Information #: 1 Payer: [facility] Member Number: [id number] Policy Number: [place] Health Plan Information #: 2 Payer: [facility] Member Number: [id number] Policy Number: [place]
--- OUTSIDE RECORDS SUMMARY | 2023-11-16 12:17 | XMS_ITS | Encounter Summary ---
Author Organization [facility] Address [phone] [facility] [employer] [place] [address] Care Team Providers Care Range Aid Name Role Phone Hayley Pandey MD Unavailable + [phone] Chloé Sánchez CNM Unavailable [phone] Dayana Galindo MD Unavailable Ruiz Lewis DO Unavailable Xiomara Cain Morales MD Unavailable [phone] Kate Leal MD Unavailable [phone] Tari Willams Unavailable [phone] Cynthia Allen CNM Unavailable [phone] Palak Culver CNM Unavailable [phone] Damaso Carranza MD Unavailable [phone] Ian Youssef MD Unavailable [phone] Jc Jacobs MD Unavailable [phone] Eliz Saleem CNM Unavailable [phone] Belén Bravo MD Primary Care Provider Reason for Visit * Reason Comments Medication Refill Encounter Details Date Type Department Care Team (Late st Contact Info) Description 03/04/2020 Refill [facility] [address] [address] Belén Bravo MD [address] [place] [address] [email or web address] Medication Refill Social History Tobacco Use Types [...] as of this encounter Progress Notes * Donita Norman - 03/05/2020 8:24 AM EST Last OV 02/06/2020 None scheduled documented in this encounter Plan of Treatment Not on file documented as of this encounter Visit Diagnoses Diagnosis Anxiety and depression- Primary documented in this encounter Care Teams Range Aid Relationship Specialty Start Date End Date Belén Bravo MD [address] [place] [address] [email or web address] PCP - General Family Medicine 11/01/19 06/08/23 Hayley Pandey MD [address] [place] [address] [email or web address] Historical LMR Provider 01/15/19 03/30/21 Chloé Sánchez CNM [address] [place] [address] [email or web address] Historical LMR Provider 01/15/19 03/30/21 Dayana Galindo MD 15 [facility] [address] [place] [address] [email or web address] Historical LMR Provider 01/15/19 03/30/21 Ruiz Lewis DO [address] [place] [address] [email or web address] Historical LMR Provider 01/15/19 03/30/21 Cain Morales MD [address] [place] [address] [address] [place] [address] Historical LMR Provider 01/15/19 2 Kate Leal MD 15 [facility] [address] [place] [address] [email or web address] Historical LMR Provider 01/15/19 03/30/21 Tari Wlilams 15 [facility] [address] [place] [address] Historical LMR Provider 01/15/19 2 Cynthia Allen CNM [address] [place] [id number] [email or web address] Historical LMR Provider 01/15/19 03/30/21 Palak Culver CNM [address] [address] [email or web address] Historical LMR Provider 01/15/19 03/30/21 Damaso Carranza MD [address] [address] [email or web address] Historical LMR Provider 01/15/19 Ian Youssef MD [address] [place] [address] [address] [place] [address] Historical LMR Provider 01/15/19 2 Jc Jacobs MD [address] [place] [address] [email or web address] Historical LMR Provider 01/15/19 03/30/21 [place] [address] [email or web address] Historical LMR Provider 01/15/19 03/30/21 documented as of this encounter Additional Source Comments The information contained in this document represents components of the legal health record. It is not the complete legal health record.[facility]
--- OUTSIDE RECORDS SUMMARY | 2023-11-16 12:17 | XMS_ITS | Encounter Summary ---
Author Organization [facility] Address [phone] [facility] [place] [address] Care Team Providers Care Charity Fundraiser Name Role Phone Hayley Pandey MD Unavailable + [phone] Chloé Sánchez CNM Unavailable [phone] Dayana Galindo MD Unavailable Ruiz Lewis DO Unavailable [email or web address] Cain Morales MD Unavailable [phone] Kate Leal MD Unavailable [phone] Tari Willams Unavailable [phone] Cynthia Allen CNM Unavailable [phone] Palak Culver CNM Unavailable [phone] Damaso Carranza MD Unavailable [phone] Ian Youssef MD Unavailable [phone] Jc Jacobs MD Unavailable [phone] Eliz Saleem CNM Unavailable [phone] Belén Bravo MD Primary Care Provider Reason for Visit * Reason Onset Date Comments Post Discharge Follow Up Call 08/12/2020 Encounter Details Date Type Department Care Team (Late st Contact Info) Description 08/12/2020 Telephone [facility] [address] [place] [address] Julienne Jasso, RN [address] [place] [address] [email or web address] Post Discharge Follow Up Call Social History Tobacco Use Types Packs/Day Years [...] as of this encounter Progress Notes * Julienne Jasso RN - 08/12/2020 3:56 PM EDT LM requesting patient let us know if she is planning on having DVT study. documented in this encounter Plan of Treatment Not on file documented as of this encounter Visit Diagnoses Not on filedocumented in this encounter Care Teams Charity Fundraiser Relationship Specialty Start Date End Date Belén Bravo MD [address] [place] [address] [email or web address] PCP - General Family Medicine 11/01/19 06/08/23 Hayley Pandey MD [address] [place] [address] [email or web address] Historical LMR Provider 01/15/19 03/30/21 Chloé Sánchez CNM [address] [place] [address] Historical LMR Provider 01/15/19 03/30/21 Dayana Galindo MD 15 [facility] [address] [place] [address] [email or web address] Historical LMR Provider 01/15/19 03/30/21 Ruiz Lewis DO [address] [facility] [place] [address] [email or web address] Historical LMR Provider 01/15/19 03/30/21 Cain Morales MD [address] [place] [address] [address] [place] [address] Historical LMR Provider 01/15/19 2 Kate Leal MD 15 [facility] [address] [place] [address] [email or web address] Historical LMR Provider 01/15/19 03/30/21 Tari Willams 15 [facility] [address] [place] [address] Historical LMR Provider 01/15/19 2 Cynthia Allen CNM [address] [place] [address] [email or web address] Historical LMR Provider 01/15/19 03/30/21 Palak Culver CNM [address] [address] [email or web address] Historical LMR Provider 01/15/19 03/30/21 Damaso Carranza MD 15 [facility] [address] [place] [address] [email or web address] Historical LMR Provider 01/15/19 Ian Youssef MD 155 [facility] 100 [place] [address] Historical LMR Provider 01/15/19 2 Jc Jacobs MD [address] [place] [address] [email or web address] Historical LMR Provider 01/15/19 03/30/21 Eliz Saleem CNM [address] [employer] [facility] [place] [address] [email or web address] Historical LMR Provider 01/15/19 03/30/21 documented as of this encounter Additional Source Comments The information contained in this document represents components of the legal health record. It is not the complete legal health record.[facility]
--- OUTSIDE RECORDS SUMMARY | 2023-11-16 12:17 | XMS_ITS | Encounter Summary ---
Author Organization [facility] Address [phone] Pending sale to [place] [address] Care Team Providers Care Baseball [employer] Name Role Phone Damaso Carranza MD Unavailable [phone] Belén Bravo MD Primary Care Provider [phone] Reason for Visit * Reason Onset Date Comments Administration 05/29/2023 Panel Confirmati on Encounter Details Date Type Department Care Team (Late st Contact Info) Description 05/29/[address] [address] Kaye Elizabeth [address] [place] [phone] [email or web address] Administration (Panel Confirmation) Social History Tobacco Use Types Packs/Day Years Used Date Smoking Tobacco: Never Smokeless Tobacco: Never Alcohol Use Standard Drinks/Week Comments Not Currently 0 (1 standard drink = 0.6 oz pur e alcohol) Quit 1 week ago Education Answer Date Recorded Are you interested in more education? Not on eliseo e 07/18/2022 Are you concerned about learning? Not on file 07/18/2022 No 07/18/2022 No 07/18/2022 Digital Access Answer Date Recorded No 08/19/2022 No 08/19/2022 No 08/19/2022 Reliable internet access at home? Not on file 08/19/2022 Device with a working camera? Not on file Sex and Gender Information Value Date Recorded Sex Assigned at Female 01/11/2020 5:24 PM EDT Gender Identity Female 01/11/2020 5:24 PM EDT Sexual Orientation Straight 01/11/2020 5: 24 PM EDT documented as of this encounter Progress Notes * Kaye Elizabeth - 05/29/2023 12:24 PM EST Marylou Shafer has not been seen in over 3 years by Belén Bravo MD or a provider within the practice. Outreach letter was sent 05/29/23 to determine patient status. Per panel confirmation process, this patient will be removed from the PCP's panel after July 28, 2023 (60 days from when letter has been sent) if no appointment has been made. documented in this encounter Plan of Treatment Not on file documented as of this encounter Visit Diagnoses Not on filedocumented in this encounter Care Teams Baseball [employer] Relationship Specialty Start Date End Date Belén Bravo MD [address] [place] [address] [email or web address] PCP - General Family Medicine 11/01/19 06/08/23 Damaso Carranza MD Historical LMR Provider 01/15/19 documented as of this encounter Additional Source Comments The information contained in this document represents components of the legal health record. It is not the complete legal health record.[facility]
--- OUTSIDE RECORDS SUMMARY | 2023-11-16 12:17 | XMS_ITS | Encounter Summary ---
Author Organization [facility] Address [phone] [facility] [place] [address] Care Team Providers Care Program Assistant Name Role Phone Hayley Pandey MD Unavailable + [phone] Chloé Sánchez CNM Unavailable [phone] Dayana Galindo MD Unavailable Ruiz Lewis DO Unavailable Xiomara Cain Morales MD Unavailable [phone] Kate Leal MD Unavailable [phone] Tari Willams Unavailable [phone] Cynthia Allen CNM Unavailable [phone] Palak Culver CNM Unavailable [phone] Damaso Carranza MD Unavailable [phone] Ian Youssef MD Unavailable [phone] Jc Jacobs MD Unavailable [phone] Eliz Saleem CNM Unavailable [phone] Belén Bravo MD Primary Care Provider [phone] Reason for Visit * Reason Comments Back Pain Back pain started a few days ago and today pt started having urinary burning and urgency. Encounter Details Date Type Department Care Team (Late st Contact Info) Description 09/09/2020 12:20 PM EDT Office Visit [facility] Express Care [place] [address] [place] [address] Unknown, Unknown, Jory Mondragon MD [address] [place] [address] [email or web address] Dysuria (Primary Dx); Flank pain Social History Tobacco Use Types Packs/Day Years [...] PM EDT documented as of this encounter Last Filed Vital Signs Vital Sign Reading Time Taken Comments Blood Pressure 111/54 09/09/2020 12:36 PM EDT Pulse 93 09/09/2020 12:36 PM EDT Temperature 36.3 ??C (97.4 ??F) 09/09/2020 12:36 PM E DT Respiratory Rate 09/09/2020 12:36 PM EDT Oxygen Saturation 100% 09/09/2020 12:36 PM EDT Inhaled Oxygen Concentration - - Weight - - Height - - Body Mass Index - - documented in this encounter Progress Notes * Jory Figueroa MD - 09/09/2020 12:20 PM EDT [facility] Express Care Note Chief Complaint Chief Complaint Patient presents with ??? Back Pain Back pain started a few days ago and today pt started having urinary burning and urgency. History of Present Illness Marylou Shafer is a 29 y.o. female who comes to the urgent care for evaluation of a week of right flank pain. She tells me it started on 09-03-20. At times will radiate around the flank and into her groin. She has never had this before. There is no family history of kidney stones. She says she does not drink any milk and does not think it is a kidney stone because they come from calcium but then tells me she likes to eat a pint of [employer] on a regular basis. There is been no fever.She says her stomach will feel weird. Last night pain was the worst it has been after returning from vacation in [place]. They drove there Thursday and returned yesterday. She has not noticed any rash in the area. There is been no vomiting or diarrhea. Pain is greatly decreased today but is still present starting in her right mid back radiating around the flank and ending in her groin. She has had a hysterectomy. She has an intact appendix. When I enter the room patient has had about an hour and 20-minute wait and was questioning whether she should simply leave however she was next in line to be seen and stayed. Denies: Trauma to her flank, vaginal discharge, vaginal odor, vaginal itching Admits: Urine smelling odd, urinary urgency and pain with urinating today only Visit triage report reviewed as documented with the following changes noted None Problem List and Past Medical History Patient Active Problem List Diagnosis ??? Partial third nerve palsy ??? Arnold-Chiari malformation ??? Post-operative state ??? Cervical cancer, FIGO stage IB1 ??? Anxiety and depression ??? Adenocarcinoma in situ of cervix ??? Fatigue ??? Hair loss ??? Dry skin ??? Adenomatous polyp of colon ??? Allergic rhinitis ??? Irritable bowel syndrome ??? Migraine ??? Vitamin D deficiency ??? Insomnia ??? (infant) Past Medical History: Diagnosis Date ??? Adenocarcinoma in situ of cervix ??? Anxiety and depression ??? History of asthma ??? Preeclampsia Past Surgical History Past Surgical History: Procedure Laterality Date ??? CERVIX SURGERY cold knife ??? CRANIECTOMY SUBOCCIPITAL FOR EXPLORATION / DECOMPRESSION CRANIAL NERVES ??? HYSTERECTOMY Medications Prior to Admission medications Medication Sig acetaminophen (TYLENOL) 325 mg tablet 975 mg, Oral, Every 6 hours buPROPion (WELLBUTRIN XL) 150 MG ER 24 hr tablet 150 mg, Oral, Every morning ibuprofen (ADVIL,MOTRIN) 600 MG tablet 600 mg, Oral, Every 6 hours PRN LORazepam (ATIVAN) 0.5 MG tablet Take 1/2 - 1 tab by mouth twice a day if needed for severe anxiety PARoxetine (PAXIL) 20 MG tablet 20 mg, Oral, Every morning 95-iron lms-yimte-omw ( + DHA) 28 mg iron-800 mcg-200 mg Cmpk No dose, route, or frequency recorded. triamcinolone acetonide 0.1 % cream Topical, 2 times daily Allergies Allergies Allergen Reactions ??? Heparin Analogues Bleeding ??? Cantaloupe Mouth and throat itching ??? Other ragweed ??? Paroxetine Hcl Nausea Only ??? Penicillins Rash ??? Sertraline Nausea Only ??? Valacyclovir Hcl Dizziness and Nausea and/or Vomiting ??? Cephalexin Monohydrate Rash ??? Sulfamethoxazole Rash ??? Trimethoprim Rash Social and Family History Social History Tobacco Use ??? Smoking status: Never Smoker ??? Smokeless tobacco: Never Used Substance Use Topics ??? Alcohol use: Not Currently Comment: Quit 1 week ago Social History Substance and Sexual Activity Drug Use Not Currently ??? Types: Marijuana Comment: on weekends, last used 05/02/2019 Family History Problem Relation Age of Onset ??? Hypertension Father Hypertension ??? Diabetes mellitus Father Diabetes mellitus ??? Obesity Father Obesity ??? Stroke Father Stroke ??? Asthma Sister Asthma ??? Obesity Sister Obesity ??? Asthma Daughter Asthma ??? Obesity Mother Obesity ??? Thyroid disease Mother Thyroid disorder ROS Review of Systems See HPI All other systems have been reviewed with the patient and are negative. Physical Exam Vital Signs: BP 111/54 Pulse 93 Temp 36.3 ??C (97.4 ??F) (Temporal) Resp 20 SpO2 100% Physical Exam General: NAD, well-groomed, interactive, cooperative Neuro: Good eye contact, full affect, chronic right 3rd nerve palsy Head: Normocephalic, atraumatic Eyes: Sclera not injected, conjunctive a not swollen, lids not swollen Cor: Regular rate and rhythm, S1, S2, no murmurs rubs or gallops Lungs: No respiratory distress, clear to auscultation in 4 posterior quadrants Back: No CVA tenderness, no rash, no deformity, no erythema Abdomen: Positive bowel sounds, soft, tender in the right upper quadrant and right lower quadrant but no organomegaly and no rebound and the pain in the right lower quadrant was not reproducible consistently Extremities: Warm, pink, no edema Skin: No rash Laboratory/Radiology Testing Results for orders placed or performed in visit on 09/09/20 POCT Urine Dipstick (Automated) Result Value Ref Range COLOR Yellow TURBIDITY Clear GLUCOSE, POCT Negative Negative KETONE, POCT Negative Negative OCCULT BLOOD, POCT Trace (*) Negative SPECIFIC GRAVITY, POCT 1.015 1.005 - 1.030 ALBUMIN, POCT Negative Negative Bili Negative Negative Urobilinogen 0.2 <2.0 NITRITE, POCT Negative Negative PH, POCT 6.5 5.0 - 8.0 WBC SCREEN, POCT Negative Negative No results found. Procedure Procedures MDM Assessment and Plan: Dysuria with right flank pain: Symptoms, exam, urine dip all consistent with kidney stone, possiblyrecently passed. We discussed risks and benefits of CT scanning. She has had abdominal CTs in the past and I would like to minimize radiation exposure especially as she may have already passed a stone. I discussed checking a white count and Chem-8 which she agreed to. I did also discuss possibly outpatient ultrasound testing if these labs are normal and CT scanning if they are abnormal. We also discussed straining her urine and Advil for pain. Patient agreed with this plan. Shortly after I placed the orders I was informed by nursing staff that the patient came to the nursing desk and said she forgot she had an appointment at 230 and had to immediately leave. She declined written information saying she did not really understand what she was supposed to do. I will stillculture the urine for completeness. Written instructions are provided to reinforce verbal instructions. Patient verbalizes understanding of and agreement with this plan. Diagnosis 1. Dysuria POCT Urine Dipstick (Automated) 2. Flank pain * Candi Saenz RN - 09/09/2020 12:20 PM EDT The patient comes out to nurse's station stating that she decided she didn't want to do blood work.She has a 2:30 appt and has to leave now. Offered for her to talk to Dr Figueroa and to have discharge paperwork. Patient declines saying she needs to leave now. documented in this encounter Plan of Treatment Scheduled Orders Name Type Priority Associated Diagnoses Orde r Schedule POCT Urine Dipstick (Automated) Point of Care Testing Routine Dysuria Ordered: 09/09/2020 documented as of this encounter Procedures Procedure Name Priority Date/Time Associated Diagnosis Comments URINE CULTURE Routine 09/09/2020 2:17 PM EDT Flank pain POCT URINE DIPSTICK Routine 09/09/2020 1 2:47 PM EDT documented in this encounter Results * (ABNORMAL) Urine culture (09/09/2020 2:17 PM EDT) Special Requests None 09/09/2020 2:18 PM EDT [facility] Urine Culture MIXED GRAM POSITIVE ORGANISMS PROBABLE CONTAMINATION 50,000 to 100,000 colony forming units per mL No sensitivity performed(A) 09/11/2020 8:07 AM EDT [facility] Urine (Urine) 09/09/2020 2:1 7 PM EDT 09/09/2020 7:05 PM EDT Jory Figueroa MD MICROBIOLOGY - GENER AL ORDERABLES Performing Organization Address City/State/[facility] Co de Phone Number [address] [phone] * (ABNORMAL) POCT Urine Dipstick (Automated) (09/09/2020 12:47 PM EDT) COLOR Yellow [facility] TURBIDITY Clear [facility] GLUCOSE, POCT Negative Negative [facility] KETONE, POCT Negative Negative [facility] OCCULT BLOOD, POCT Trace(A) Negative [facility] SPECIFIC GRAVITY, POCT 1.015 1.005 - 1.030 [facility] ALBUMIN, POCT Negative Negative [facility] Bili Negative Negative [facility] Urobilinogen 0.2 <2.0 [facility] NITRITE, POCT Negative Negative [facility] PH, POCT 6.5 5.0 - 8.0 [facility] WBC SCREEN, POCT Negative Negative [facility] 09/09/2020 12:4 7 PM EDT 09/09/2020 12:45 PM EDT Unknown Unknown MD POINT OF CARE TEST O RDERABLES [facility] [address] [id number], [facility] documented in this encounter Visit Diagnoses Diagnosis Dysuria- Primary Flank pain Abdominal pain, unspecified site documented in this encounter Care Teams Program Assistant Relationship Specialty Start Date End Date Belén Bravo MD [address] [place] [address] [id number] [email or web address] PCP - General Family Medicine 11/01/19 06/08/23 Hayley Pandey MD [address] [address] [email or web address] Historical LMR Provider 01/15/19 03/30/21 Chloé Sánchez CNM [address] [address] [email or web address] Historical LMR Provider 01/15/19 03/30/21 Dayana Galindo MD [address] [id number] [email or web address] Historical LMR Provider 01/15/19 03/30/[address] [place] [address] [email or web address] Historical LMR Provider 01/15/19 03/30/21 Cain Morales MD [address] [place] [address] Historical LMR Provider 01/15/19 2 Kate Leal MD 15 [facility] [address] [place] [address] [email or web address] Historical LMR Provider 01/15/19 03/30/21 Tari Willams 15 [facility] [address] [place] [address] Historical LMR Provider 01/15/19 2 Cynthia Allen CNM [address] [place] [address] [email or web address] Historical LMR Provider 01/15/19 03/30/21 Palak Culver CNM [address] [address] Historical LMR Provider 01/15/19 03/30/21 Damaso Carranza MD 15 [facility] [address] [place] [address] Historical LMR Provider 01/15/19 Ian Youssef MD [address] [place] [address] [address] [place] [address] Historical LMR Provider 01/15/19 2 Jc Jcaobs MD [address] [place] [address] [email or web address] Historical LMR Provider 01/15/19 03/30/21 Eliz Saleem [place] [address] [email or web address] Historical LMR Provider 01/15/19 03/30/21 documented as of this encounter Additional Source Comments The information contained in this document represents components of the legal health record. It is not the complete legal health record.[facility]
--- OUTSIDE RECORDS SUMMARY | 2023-11-16 12:17 | XMS_ITS | Encounter Summary ---
Author Organization [facility] Address [phone] [facility] [place] [address] Care Team Providers Care Guide Changer Name Role Phone Damaso Carranza MD Unavailable [phone] Belén Bravo MD Primary Care Provider [phone] Unknown, Unknown Primary Care Provider Kelly henson Encounter Details Date Type Department Care Team (Late st Contact Info) Description 06/03/[address] [facility] [address] [place] [address] Belén Bravo MD [address] [place] [address] [email or web address] Social History Tobacco Use Types Packs/Day Years [...] as of this encounter Progress Notes * Chely Trujillo - 06/09/2023 12:30 PM EDT Marylou Shafer removed from Belén Bravo MD's panel due to patient transferring care outside of practice or has never established care at this practice. Patient states she moved out of state. * Chely Trujillo - 06/03/2023 10:29 AM EDT Outreach attempt made- Patient last seen 02/06/20 with Belén Bravo MD. If patient has not established elsewhere and would like to continue care, please schedule a new patient appointment for billing purposes with Belén Bravo MD. If patient has established elsewhere or does not wish to schedule, please remove provider as PCP inchart using either new provider or Not Required, PCP. documented in this encounter Plan of Treatment Not on file documented as of this encounter Visit Diagnoses Not on filedocumented in this encounter Care Teams Guide Changer Relationship Specialty Start Date End Date Belén Bravo MD [address] [place] [address] PCP - General Family Medicine 11/01/19 06/08/23 Unknown, Benjamin, PCP - General 07/31/23 Damaso Carranza MD Historical LMR Provider 01/15/19 documented as of this encounter Additional Source Comments The information contained in this document represents components of the legal health record. It is not the complete legal health record.[facility]
--- OUTSIDE RECORDS SUMMARY | 2023-11-16 12:17 | XMS_ITS | Clinical Summary ---
Author Organization [facility] Address [phone] [facility] [address] [address] Care Team Providers Care Cosmetic Counselor Name Role Phone Damaso Carranza MD Unavailable [phone] Unknown, Unknown Primary Care Provider Unavai lable Allergies Active Allergy Reactions Criticality Noted Date Comments Cantaloupe 04/27/2019 Mouth and throat itching Cephalexin Monohydrate Rash Low 04/03/2016 Heparin Analogues Bleeding High 05/25/2019 Other 04/27/2019 ragweed Paroxetine Hcl Nausea Only 04/03/2016 Penicillins Rash 01/28/2012 Sertraline Nausea Only 04/03/2016 Sulfamethoxazole Rash Low 03/04/2018 Trimethoprim Rash Low 03/04/2018 Valacyclovir Hcl Dizziness,Nausea and/or Vomiting 04/03/2016 Medications Medication Sig Dispensed Refills Start Date End Date Status ibuprofen (ADVIL,MOTRIN) 600 MG tablet Take 1 tablet (600 mg total) by mouth every 6 (six) hours as needed. 60 tablet 2 05/10/2019 Active acetaminophen (TYLENOL) 325 mg tablet Take 3 tablets (975 mg total) by mouth every 6 (six) hours. 60 tablet 2 05/10/2019 Active Active Problems Problem Noted Date Diagnosed Date (infant) 01/03/2020 Fatigue 10/04/2019 Hair loss 10/04/2019 Dry skin 10/04/2019 Cervical cancer, FIGO stage IB1 05/21/2019 Post-operative state 05/05/2019 Last Assessment & Plan: 28 yr female 05/05, post op ex lap, total abdominal radical hysterectomy, bilat salpingectomy, upper vaginectomy, pelvic lymph node dissection on 05/05 who had persistent pressor requirement and low hgb requiring transfusions taken back to OR for exploration. 05/06, S/p exp lap. Evacuated 2L blood, no obvious bleeding vessels seen, several suspicious vessels sutured and hemostatic agents (surgicel) used, no further notable bleeding, abd was closed. Intra op: 4 pRBC, 4 FFP, 2 platelets, 250 albumin, 2L crystalloid, uop 300cc, total EBL estimated 2.5L. Neuro: #Post op pain - epidural thoracic level T7-8 dilaudid/bupi PCEA continuous rate decreased to 4 , 2mL PCEA 20 min - Standing tylenol, gabapentin - Oxy PRN - Holding NSAIDs - continue home bupropion ?? Resp: Extubated 05/06. On RA - IS, C&DB ?? CV/Heme: #Hypovolemic/hemorrhagic shock -- Resolved significant intraoperative blood loss (EBL 1L), likely ongoing oozing given + FAST @ 1am 05/06 (reportedly negative @ 7pm 05/05) - 05/05: S/p intra-op resusc (1L albumin, 2L LR), PACU resusc (2u pRBC) - LR bolus 2L, 1u pRBC in SICU 05/05,LR infusion @ 75 ---returned to OR 05/06 4am for exp lap, evac 2L blood, hemostatsis and closed ?? GI: - advance to clears, ADAT - Nausea: Zofran, compazine, and haldol PRN. - Protonix ppx - abd JEANETTE to bulb sxn (830cc output serosang) ?? Renal: BUN/Cr: 6/0.63 from 9/0.70. TBB +7.5L - Hughes, to remain in place through discharge per Crisis Manager (2 weeks) - LR at 75cc/hr -> discontinue - net TBB +11L, give lasix 10mg IV x 1 this am ?? ID: Tmax 100.8. WBC 4.04 from 3.77. - No abx Onc: #h/o stage IB1 grade 3 endocervical ACIS Followed by so delay in treatment/followup. Now 05/05 s/p radical hysterectomy, bilateral salpingectomy, pelvic lymph node dissection. S/p return to OR for washout, clot evaucation, and oversew vessels on 05/06. - Imaging preop including: MRI 04/29- no e/o malignancy ?? Endocrine: BG 87 - Continue : pump and supplies in room- check to make sure medications are compatible with breast feeding ?? Prophylaxis: - DVT: Mechanical - Pneumoboots - Chemical - N/A - discussed starting with surgery, hold for 24 hrs given platelets 79 - GI:Protonix TLD: - Epidural - PIV x3 - A line- Remove - RIJ MAC introducer - remove - Hughes - JEANETTE Vitamin D deficiency 04/17/2016 Adenomatous polyp of colon 04/10/2016 Allergic rhinitis 04/03/2016 Irritable bowel syndrome 04/03/2016 Migraine 04/03/2016 Insomnia 04/03/2016 Partial third nerve palsy 01/28/2012 Overview: Partial third nerve palsy Arnold-Chiari malformation 01/28/2012 Overview: Chiari malformation Anxiety and depression Adenocarcinoma in situ of cervix Immunizations Name Administration Dates Next Due HPV9 04/10/2016 Influenza Quadrivalent Prese rvative Free IM 01/04/2020,04/29/2018,05/19/2017,2016 Tdap 08/13/2018,11/05/2011 Varicella 05/19/2017,11/07/2011 Family History Medical History Relation Comments Asthma Daughter Asthma Diabetes mellitus Father Diabetes melli tus Hypertension Father Hypertension Obesity Father Obesity Stroke Father Stroke Obesity Mother Obesity Thyroid disease Mother Thyroid disorder Asthma Sister 1 Asthma Obesity Sister 2 Obesity Relation Status Comments Daughter Father Mother Sister 1 Sister 2 Social History Tobacco Use Types Packs/Day Years [...] Orientation Straight 01/11/2020 5: 24 PM EDT Last Filed Vital Signs Vital Sign Reading Time Taken Comments Blood Pressure 104/69 11/09/2021 2:31 PM EDT Pulse 79 11/09/2021 2:31 PM EDT Temperature 36.4 ??C (97.5 ??F) 11/09/2021 2:31 PM ED T Respiratory Rate 20 11/09/2021 2:31 PM EDT Oxygen Saturation 100% 11/09/2021 2:31 PM EDT Inhaled Oxygen Concentration 40% 05/06/2019 2 :00 PM EST Weight 51.7 kg (114 lb) 01/04/2020 9:55 AM EDT Height 149.9 cm (4' 11) 11/11/2019 3:48 PM EDT Body Mass Index 23.03 11/11/2019 3:48 PM EDT Plan of Treatment Health Maintenance Due Date Last Done Comments PNEUMOCOCCAL VACCINES (0-64 years) (1 of 2 - PCV) 1996 DEPRESSION SCREENING 10/13/2003 HEPATITIS C SCREENING 2008 HIV ONE-TIME SCREENING (18-65 YEARS) 2008 PAP SMEAR 05/26/2020 05/26/2017 COVID-19 VACCINE ( season) 2022 INFLUENZA VACCINE (#1) 2023 0, 04/29/2018, 05/19/2017, Additional history exists Adult Td,Tdap Booster 08/13/2028 08/13/2018, 012 SMOKING STATUS SCREENING (Once After 26 Yrs) Completed 11/09/2021 HIB VACCINES Aged Out No longer eligi ble based on patient's age to complete this topic MENINGOCOCCAL VACCINES (ACWY) Aged Out No longer eligible based on patient's age to complete this topic Medical Devices Not on file Procedures Procedure Name Priority Date/Time Associated Diagnosis Comments HM PAP SMEAR FOR RESULT ENTRY ONLY Routine 05/26/2017 from Last 3 Months or Most Recently Relevant to Health Maintenance Results * PAP SMEAR FOR RESULT ENTRY ONLY (05/26/2017) Pap smear . Historical Provider MD SARAI [place] from Last 3 Months or Most Recently Relevant to Health Maintenance Advance Directives Documents on File Type Date Recorded Patient Fourth Hand Expl anation Healthcare Proxy 05/17/2019 * Full Code (Presumed) (Latest Code Status on File) Date Activated Date Inactivated Comments 05/07/2019 7:07 PM 05/10/2019 5:40 PM * Full Code (Presumed) Date Activated Date Inactivated Comments 05/05/2019 3:48 PM 05/07/2019 7:02 PM * Full Code (Presumed) Date Activated Date Inactivated Comments 05/05/2019 8:02 AM 05/05/2019 3:48 PM Care Teams Cosmetic Counselor Relationship Specialty Start Date End Date Unknown, Unknown, PCP - General 07/31/23 Damaso Carranza MD [email or web address] Historical LMR Provider 01/15/19 Additional Source Comments The information contained in this document represents components of the legal health record. It is not the complete legal health record.[facility]
--- OUTSIDE RECORDS SUMMARY | 2023-11-16 12:17 | XMS_ITS | Encounter Summary ---
Author Organization [facility] Address [phone] [facility] [place] [address] Care Team Providers Care Special Makeup Fx Artist Instructor Name Role Phone Hayley Pandey MD Unavailable + [phone] Chloé Sánchez CNM Unavailable [phone] Dayana Galindo MD Unavailable Ruiz Lewis DO Unavailable Xiomara Cain Morales MD Unavailable [phone] Kate Leal MD Unavailable [phone] Tari Willams Unavailable [phone] Cynthia Allen CNM Unavailable [phone] Palak Culver CNM Unavailable [phone] Damaso Carranza MD Unavailable [phone] Ian Youssef MD Unavailable [phone] Jc Jacobs MD Unavailable [phone] Eliz Saleem CNM Unavailable [phone] Belén Bravo MD Primary Care Provider Encounter Details Date Type Department Care Team (Late st Contact Info) Description 03/06/[address] [address] Belén Bravo MD 36 [place] [address] [email or web address] Social History Tobacco Use Types Packs/Day Years [...] as of this encounter Progress Notes * Kiera Obrien - 03/06/2020 12:50 PM EST Received request for meds list from Dept of [facility]. Scanned request into encounter and faxed meds list to [phone] documented in this encounter Plan of Treatment Not on file documented as of this encounter Visit Diagnoses Not on filedocumented in this encounter Care Teams Special Makeup Fx Artist Instructor Relationship Specialty Start Date End Date Belén Bravo MD [address] [place] [address] [email or web address] PCP - General Family Medicine 11/01/19 06/08/23 Hayley Pandey MD [address] [place] [address] [email or web address] Historical LMR Provider 01/15/19 03/30/21 Chloé Sánchez CNM [address] [place] [address] Historical LMR Provider 01/15/19 03/30/21 Dayana Galindo MD 15 [facility] [address] [place] [address] [email or web address] Historical LMR Provider 01/15/19 03/30/21 Ruiz Lewis DO 73 [facility] [place] [address] [email or web address] Historical LMR Provider 01/15/19 03/30/21 Cain Morales MD [address] [place] [address] [address] [place] [address] Historical LMR Provider 01/15/19 2 Kate Leal MD 15 [facility] [address] [place] [address] [email or web address] Historical LMR Provider 01/15/19 03/30/21 Tari Willams 15 [facility] 201 [place] [address] Historical LMR Provider 01/15/19 2 Cynthia Allen CNM [address] [place] [address] [email or web address] Historical LMR Provider 01/15/19 03/30/21 Palak Culver CNM 15 [facility] [address] [place] [address] [email or web address] Historical LMR Provider 01/15/19 03/30/21 Damaso Carranza MD 15 [facility] [address] [place] [address] [email or web address] Historical LMR Provider 01/15/19 Ian Youssef MD 155 [facility] 100 [place] [address] Historical LMR Provider 01/15/19 2 Jc Jacobs MD [address] [place] [address] [email or web address] Historical LMR Provider 01/15/19 03/30/21 Eliz Saleem CNM 67 [facility] [place] [address] [email or web address] Historical LMR Provider 01/15/19 03/30/21 documented as of this encounter Additional Source Comments The information contained in this document represents components of the legal health record. It is not the complete legal health record.[facility]
--- OUTSIDE RECORDS SUMMARY | 2023-11-16 12:17 | XMS_ITS | Encounter Summary ---
Author Organization [facility] Address [phone] [facility] [place] [address] Care Team Providers Care Flying Shear Operator Name Role Phone Damaso Carranza MD Unavailable [phone] Belén Bravo MD Primary Care Provider [phone] Encounter Details Date Type Department Care Team (Latest Contact Info) Description 11/09/2021 3:24 PM EDT - 11/09/2021 11:59 PM EDT Hospital Encounter [facility] Radiology Manuel [address] [place] [address] Jory Figueroa MD [address] [place] [address] [email or web address] Discharge Disposition: Home or Self Care Social History Tobacco Use Types Packs/Day Years [...] PM EDT documented as of this encounter Medications at Time of Discharge Medication Sig Dispensed Refills Start Date End Date acetaminophen (TYLENOL) 325 mg tablet Take 3 tablets (975 mg total) by mouth every 6 (six) hours. 60 tablet 2 05/10/2019 ibuprofen (ADVIL,MOTRIN) 600 MG tablet Take 1 tablet (600 mg total) by mouth every 6 (six) hours as needed. 60 tablet 2 05/10/2019 documented as of this encounter Plan of Treatment Not on file documented as of this encounter Procedures Procedure Name Priority Date/Time Associated Diagnosis Comments XR ABDOMEN SERIES SUPINE WITH DECUBITIS/ERECT AND SINGLE VIEW CHEST Urgent/patient waiting 11/09/2021 3:43 PM EDT Abdominal pain, right lower quadrant documented in this encounter Results * XR Abdomen Series Supine with Decubitus/Erect and Single View Chest (11/09/2021 3:43 PM EDT) Anatomical Region Laterality Modality Abdomen, Chest Computed Radiogr aphy 11/09/2021 4:25 PM EDT Impressions 11/09/2021 4:28 PM EDT Prominent paucity of the bowel gas. Nonobstructive bowel gas pattern. Narrative 11/09/2021 4:28 PM EDT ABDOMEN CLINICAL INDICATION: ??Pain; RLQ with hx hysterectomy and appy COMPARISON: None. FINDINGS: Frontal view of the chest and abdomen is obtained. In total, 3 images. Cardiac silhouette is unremarkable. Mediastinal silhouette is unremarkable. No focal lung consolidation. There is prominent paucity of the bowel gas. Nonobstructive bowel gas pattern. There is mild scoliosis of the lumbar spine with convexity towards RIGHT. Vertebral body height is maintained. Multiple surgical clips in the LEFT hemipelvis. Procedure Note Ky Hernandes MD, PhD - 11/09/2021 ABDOMEN CLINICAL INDICATION: Pain; RLQ with hx hysterectomy and appy COMPARISON: None. FINDINGS: Frontal view of the chest and abdomen is obtained. In total, 3images. Cardiac silhouette is unremarkable. Mediastinal silhouette isunremarkable. No focal lung consolidation. There is prominent paucity of the bowel gas. Nonobstructive bowel gaspattern. There is mild scoliosis of the lumbar spine with convexity towards RIGHT.Vertebral body height is maintained. Multiple surgical clips in the LEFThemipelvis. IMPRESSION: Prominent paucity of the bowel gas. Nonobstructive bowel gas pattern. Jory Figueroa MD IMG XR ABDOMEN documented in this encounter Visit Diagnoses Diagnosis Abdominal pain, right lower quadrant documented in this encounter Care Teams Flying Shear Operator Relationship Specialty Start Date End Date Belén Bravo MD [address] [place] [address] [email or web address] PCP - General Family Medicine 11/01/19 06/08/23 Damaso Carranza MD [email or web address] Historical LMR Provider 01/15/19 documented as of this encounter Additional Source Comments The information contained in this document represents components of the legal health record. It is not the complete legal health record.[facility]
--- OUTSIDE RECORDS SUMMARY | 2023-11-16 12:17 | XMS_ITS | Encounter Summary ---
Author Organization [facility] Address [phone] [facility] [place] [address] Care Team Providers Care Project Management Engineer Name Role Phone Hayley Pandey MD Unavailable Chloé Sánchez CNM Unavailable [phone] Dayana Galindo MD Unavailable Ruiz Lewis DO Unavailable Xiomara Cain Morales MD Unavailable [phone] Kate Leal MD Unavailable [phone] Tari Willams Unavailable [phone] Cynthia Allen CNM Unavailable [phone] Palak Culver CNM Unavailable Damaso Carranza MD Unavailable Ian Youssef MD Unavailable Jc Jacobs MD Unavailable Eliz Saleem CNM Unavailable Belén Bravo MD Primary Care Provider Encounter Details Date Type Department Care Team (Late st Contact Info) Description 11/22/2020 Telephone [facility] [address] [place] [address] [address] [place] [address] Celina Coburn RN [address] [place] [address] Social History Tobacco Use Types Packs/Day Years [...] as of this encounter Progress Notes * Celian Coburn RN - 11/22/2020 9:03 AM EDT Patient called having bleeding this morning when she woke up. She had very light bleeding. Patient had surgery with Dr. Cole 05/06/19 hysterectomy without ovary removal, and then on 05/06 Dr. Cole did emergent surgery for an Ex-lap washout. Had intercourse 11/20 with the use of lubricant due to discomfort at first post surgery. She did not due any additional activity yesterday than normal. Shedid have some lower back pain this morning that she at first was due to her typical back pain she experiences and then when she went to the bathroom this morning she noticed light blood on her underwear and when wiping. She still has light bleeding. I informed her about coming in to be examined here by one of our RAILROAD COOK's and patient declined to coming today due to living hours away in [place]. She informed me she did call her PCP and that her PCP does pelvic exams. I told her she could go to see her PCP but that they would still most likely inform her to come see us for an exam. I told her if she wants to go see her PCP sooner and next week still coming in to see an RAILROAD COOK we can do that. Patient agreed to seeing RAILROAD COOK Suzanne Cabrera next week and will contact PCP office again to see about going in to beexamined today or tomorrow before the long weekend opposed to coming all the way into [place] today due to living far away. documented in this encounter Plan of Treatment Not on file documented as of this encounter Visit Diagnoses Not on filedocumented in this encounter Care Teams Project Management Engineer Relationship Specialty Start Date End Date Belén Bravo MD [address] [place], [place] [id number] [email or web address] PCP - General Family Medicine 11/01/19 06/08/23 Hayley Pandey MD [address] [place] [address] [email or web address] Historical LMR Provider 01/15/19 03/30/21 Chloé Sánchez CNM [address] [place] [address] [email or web address] Historical LMR Provider 01/15/19 03/30/21 Dayana Galindo MD [address] [place] [address] [email or web address] Historical LMR Provider 01/15/19 03/30/21 Ruiz Lewis DO [address] [place] [id number] [email or web address] Historical LMR Provider 01/15/19 03/30/21 Cain Morales MD [address] [place] [address] Historical LMR Provider 01/15/19 2 Kate Leal MD [address] [place] [address] [email or web address] Historical LMR Provider 01/15/19 03/30/21 RomiSallieTari Sauceda 15 [facility] 201 [place] [address] Historical LMR Provider 01/15/19 [address] [place] [address] Historical LMR Provider 01/15/19 03/30/21 Palak Culver CNM 15 [facility] 102 [place] [address] [email or web address] Historical LMR Provider 01/15/19 03/30/21 Damaso Carranza MD [address] [id number] Historical LMR Provider 01/15/19 Ian Youssef MD [address] [place] [address] Historical LMR Provider 01/15/19 2 Jc Jacobs MD [address] [place] [address] [email or web address] Historical LMR Provider 01/15/19 03/30/21 Eliz Saleem CNM [address] [place] [address] ([email or web address]) [email or web address] Historical LMR Provider 01/15/19 03/30/21 documented as of this encounter Additional Source Comments The information contained in this document represents components of the legal health record. It is not the complete legal health record.[facility]
--- OUTSIDE RECORDS SUMMARY | 2023-11-16 12:17 | XMS_ITS | Encounter Summary ---
Author Organization [facility] Address [phone] [facility] [place] [address] Care Team Providers Care Linoleum Printer Name Role Phone Damaso Carranza MD Unavailable [phone] Belén Bravo MD Primary Care Provider [phone] Reason for Visit * Reason Comments Abdominal Pain Woke up with tendern ess/pain on right side of abdomen, increasingly worse throughout the day, nausea. Wants BGL checked due to family history and feeling unwell recently. Appendectomy in March 2021. Denies pain with urination. State increased urinary frequency. Encounter Details Date Type Department Care Team (Late Contact Info) Description 11/09/2021 2:20 PM EDT Office Visit [facility] Express Care Manuel [address] [place] [address] Unknown, Unknown, Jory Mondragon MD [address] [place] [address] [email or web address] Constipation, unspecified constipation type (Primary Dx); Abdominal pain, right lower quadrant; Ketonuria; Urinary frequency; Pain Social History Tobacco Use Types Packs/Day Years [...] 11/09/2021 2:31 PM EDT Inhaled Oxygen Concentration - - Weight - - Height - - Body Mass Index - - documented in this encounter Patient Instructions * Patient Instructions* Jory Figueroa MD - 11/09/2021 2:20 PM EDT Constipation: This is consistent with the ketones seen in the urine confirming mild dehydration. I am also concerned with a history of previous small bowel obstruction that she may have adhesions from her hysterectomy and appendectomy. Recommend a half a capful of MiraLAX daily with 8 ounces of fluid of her choosing as needed for daily soft bowel movement. If not improving can increase to three quarters and up to a full cap as needed. Can stop if stools become too loose or too frequent. I did review x-rays with the patient and she was able to see paucity of air on the right side but normal air with no air-fluid levels and no distention of bowel loops on the left. documented in this encounter Progress Notes * Jory Figueroa MD - 11/09/2021 2:20 PM EDT [facility] Express Care Note Chief Complaint Chief Complaint Patient presents with ??? Abdominal Pain Woke up with tenderness/pain on right side of abdomen, increasingly worse throughout the day, nausea. Wants BGL checked due to family history and feeling unwell recently. Appendectomy in March 2021. Denies pain with urination. State increased urinary frequency. History of Present Illness Marylou Shafer is a 31 y.o. female who comes to the urgent care for evaluation of right-sided abdominal pain progressive throughout the day. She is nauseated but has not vomited. She also complains of urinary frequency but there is no dysuria. She had an appendectomy in March of this year. She did also have adhesions and partial small bowel obstruction since her surgery. First abdominal surgery was a hysterectomy. Past medical history significant for cervical cancer in situ which led to the hysterectomy. Denies fever, diarrhea. Admits no bowel movement today with once daily being typical for her. Family history with multiple family members who have a 2 diabetes but they are all obese. Visit triage report reviewed as documented with the following changes noted : None Problem List and Past Medical History [...] Past Surgical History: Procedure Laterality Date ??? APPENDECTOMY ??? CERVIX SURGERY cold knife ??? CRANIECTOMY SUBOCCIPITAL FOR EXPLORATION / DECOMPRESSION CRANIAL NERVES ??? HYSTERECTOMY Medications Prior to Admission medications Medication Sig acetaminophen (TYLENOL) 325 mg tablet 975 mg, Oral, Every 6 hours ibuprofen (ADVIL,MOTRIN) 600 MG tablet 600 mg, Oral, Every 6 hours PRN Allergies Allergies Allergen Reactions ??? Heparin Analogues [...] disorder ROS Review of Systems See HPI Physical Exam Vital Signs: BP 104/69 (BP Location: Left arm, Patient Position: Sitting, Cuff Size: Medium) Pulse 79 Temp 36.4 ??C (97.5 ??F) (Temporal) Resp 20 SpO2 100% General: NAD, well-groomed, interactive, cooperative Habitus: Petite height and weight-arriaga Neuro: Good eye contact, full affect, chronic right eye partial nerve palsy Head: Normocephalic, atraumatic Eyes: Sclera not injected, conjunctiva not swollen, lids not swollen, sclera anicteric Cor: Regular rate and rhythm, S1, S2, no murmurs rubs or gallops Lungs: No respiratory distress, clear to auscultation four posterior quadrants, moving air well throughout, no wheezes crackles or rhonchi Abdomen: Well-healed surgical scar midline from suprapubic to umbilicus (this was from her hysterectomy and same scar was used for recent appendectomy March of this year), normal bowel sounds, soft, tender in the right lower quadrant but no rebound, palpation in the left lower quadrant causes pain to be referred to the right lower quadrant, no epigastric or upper quadrant tenderness, no organomegaly, no mass Extremities: Warm, pink Skin: No rash Laboratory/Radiology Testing Results for orders placed or performed in visit on 11/09/21 POCT Urine Dipstick (Automated) Result Value Ref Range COLOR Yellow TURBIDITY Clear GLUCOSE, POCT Negative Negative KETONE, POCT 15.0 (*) Negative OCCULT BLOOD, POCT Trace (*) Negative SPECIFIC GRAVITY, POCT 1.020 1.005 - 1.030 ALBUMIN, POCT Negative Negative Bili Negative Negative Urobilinogen 0.2 <2.0 NITRITE, POCT Negative Negative PH, POCT 6.5 5.0 - 8.0 WBC SCREEN, POCT Negative Negative POCT Glucose Result Value Ref Range Glucose, POCT 89 70 - 100 mg/dL No results found. Procedure Procedures MDM Assessment and Plan: Constipation: This is consistent with the ketones seen in the urine confirming mild dehydration. I am also concerned with a history of previous small bowel obstruction that she may have adhesions from her hysterectomy and appendectomy. Recommend a half a capful of MiraLAX daily with 8 ounces of fluid of her choosing as needed for daily soft bowel movement. If not improving can increase to three quarters and up to a full cap as needed. Can stop if stools become too loose or too frequent. I did review x-rays with the patient and she was able to see paucity of air on the right side but normal air with no air-fluid levels and no distention of bowel loops on the left. Note: The above is reviewed with the patient by me. No written materials are provided. Patient verbalizes understanding of and agreement with the plan. She is discharged by me with no further contactfrom other clinic staff. Her glucose of 89 is normal and she is reassured that she does not have diabetes and is low risk for developing it as long as her weight remains healthy. Written instructions are provided to reinforce verbal instructions. Patient verbalizes understanding of and agreement with this plan. Diagnosis 1. Constipation, unspecified constipation type 2. Abdominal pain, right lower quadrant XR Abdomen Series Supine with Decubitus/Erect and Single View Chest 3. Ketonuria POCT Glucose 4. Urinary frequency POCT Urine Dipstick (Automated) POCT Glucose 5. Pain Urine culture documented in this encounter Plan of Treatment Scheduled Orders Name Type Priority Associated Diagnoses Orde r Schedule POCT Urine Dipstick (Automated) Point of Care Testing Routine Urinary frequency Ordered: 11/09/2021 POCT Glucose Point of Care Testing Routine Urinary frequency Ketonuria Ordered: 11/09/2021 documented as of this encounter Procedures Procedure Name Priority Date/Time Associated Diagnosis Comments URINE CULTURE Routine 11/09/2021 3:37 PM EDT Pain POCT GLUCOSE Routine 11/09/2021 3:17 PM EDT POCT URINE DIPSTICK Routine 11/09/2021 2 :52 PM EDT documented in this encounter Results * XR [...] pattern. Jory Figueroa MD IMG XR ABDOMEN * (ABNORMAL) Urine culture (11/09/2021 3:37 PM EDT) Special Requests None 11/09/2021 4:[address] [facility] Urine Culture MIXED ORGANISMS RESEMBLING UROGENITAL ABRAHAM 50,000 to 100,000 colony forming units per mL No sensitivity performed(A) 11/11/2021 7:[address] [facility] Urine (Urine) 11/09/2021 3:3 7 PM EDT 11/09/2021 6:06 PM EDT Jory Figueroa MD MICROBIOLOGY - GENER AL ORDERABLES [facility] [address] [phone] * POCT Glucose (11/09/2021 3:17 PM EDT) Glucose, POCT 89 70 - 100 mg/dL [facility] 11/09/2021 3:17 PM EDT 11/09/2021 3:26 PM EDT Unknown Unknown POINT OF CARE TEST O RDERABLES Performing Organization Address City/[facility]/ZIP Co de Phone Number [facility] [address] * (ABNORMAL) POCT Urine Dipstick (Automated) (11/09/2021 2:52 PM EDT) COLOR Yellow [facility]ERTO- [facility] TURBIDITY Clear [facility]- [facility] GLUCOSE, POCT Negative Negative [facility] KETONE, POCT 15.0(A) Negative [facility] OCCULT BLOOD, POCT Trace(A) Negative [facility] SPECIFIC GRAVITY, POCT 1.020 1.005 - 1.030 [facility] ALBUMIN, POCT Negative Negative WENTWO RTH-[facility] Bili Negative Negative [facility] Urobilinogen 0.2 <2.0 [facility] TH[facility] NITRITE, POCT Negative Negative [facility]WO RT[facility] PH, POCT 6.5 5.0 - 8.0 [facility]ERTO- [facility] WBC SCREEN, POCT Negative Negative MOLLY TWORTH[facility] 11/09/2021 2:52 PM EDT 11/09/2021 2:53 PM EDT Unknown Unknown MD POINT OF CARE TEST O RDERABLES [facility] [address] [place] [address], [facility] documented in this encounter Visit Diagnoses Diagnosis Constipation, unspecified constipation type- Primary Abdominal pain, right lower quadrant Ketonuria Acetonuria Urinary frequency Pain Generalized pain Abdominal pain, right lower quadrant documented in this encounter Care Teams Linoleum Printer Relationship Specialty Start Date End Date Belén Bravo MD [address] [place] [address] [email or web address] PCP - General Family Medicine 11/01/19 06/08/23 Damaso Carranza MD [email or web address] Historical LMR Provider 01/15/19 documented as of this encounter Additional Source Comments The information contained in this document represents components of the legal health record. It is not the complete legal health record.[facility]
--- OUTSIDE RECORDS SUMMARY | 2023-11-16 12:17 | XMS_ITS | Encounter Summary ---
Author Organization [facility] Address [phone] [facility] [place] [address] Care Team Providers Care Strategic Marketing Manager Name Role Phone Hayley Pandey MD Unavailable + [phone] Chloé Sánchez CNM Unavailable [phone] Dayana Galindo MD Unavailable Ruiz Lewis DO Unavailable Xiomara Cain Morales MD Unavailable [phone] Kate Leal MD Unavailable [phone] Tari Willams Unavailable [phone] Cynthia Allen CNM Unavailable [phone] Palak Culver CNM Unavailable [phone] Damaso Carranza MD Unavailable [phone] Ian Youssef MD Unavailable [phone] Jc Jacobs MD Unavailable [phone] Eliz Saleem CNM Unavailable [phone] Belén Bravo MD Primary Care Provider Reason for Visit * Reason Onset Date Comments Vaginal Bleeding 11/22/2020 Encounter Details Date Type Department Care Team (Late st Contact Info) Description 11/22/2020 Telephone [facility] [address] [address] Nina Garcia LPN [address] [place] [address] [email or web address] Vaginal Bleeding Social History Tobacco Use Types Packs/Day Years [...] Progress Notes * Belén Bravo MD - 11/22/2020 1:27 PM EDT Noted. Agree. * Nina Garcia LPN - 11/22/2020 8:07 AM EDT Patient states that she had a hysterectomy in 2019 (still has ovaries). Has not had any problems since, but states that today she has vaginal bleeding with no pain. Is followed by [facility]. Advised patient to call them and go to urgent care if they were not able to see her today. documented in this encounter Plan of Treatment Not on file documented as of this encounter Visit Diagnoses Not on filedocumented in this encounter Care Teams Strategic Marketing Manager Relationship Specialty Start Date End Date Belén Bravo MD [address] [place] [address] [email or web address] PCP - General Family Medicine 11/01/19 06/08/23 Hayley Pandey MD [address] [place] [address] [email or web address] Historical LMR Provider 01/15/19 03/30/21 Chloé Sánchez CNM 15 [facility] 102 [place] [address] [email or web address] Historical LMR Provider 01/15/19 03/30/21 Dayana Galindo MD 15 [facility] 102 [place] [address] [email or web address] Historical LMR Provider 01/15/19 03/30/21 Ruiz Lewis DO [facility] [place] [id number] [email or web address] Historical LMR Provider 01/15/19 03/30/21 Cain Morales MD [address] [place] [address] [id number] Historical LMR Provider 01/15/19 2 Kate Leal MD 15 [facility] 102 [place] [address] [email or web address] Historical LMR Provider 01/15/19 03/30/21 Tari Willams 15 [facility] 201 [place] [address] Historical LMR Provider 01/15/19 2 Cynthia Allen CNM [address], [place] [address] Historical LMR Provider 01/15/19 03/30/21 Palak Culver CNM [address] [address] Historical LMR Provider 01/15/19 03/30/21 Damaso Carranza MD [address] [address] Historical LMR Provider 01/15/19 Ian Youssef MD [address] [place] [address] Historical LMR Provider 01/15/19 2 Jc Jacobs MD [address] [place] [address] [email or web address] Historical LMR Provider 01/15/19 03/30/21 Eliz Saleem CNM [address], [facility] [place] [address] [email or web address] Historical LMR Provider 01/15/19 03/30/21 documented as of this encounter Additional Source Comments The information contained in this document represents components of the legal health record. It is not the complete legal health record.[facility]
--- OUTSIDE RECORDS SUMMARY | 2023-11-16 12:17 | XMS_ITS | Encounter Summary ---
Author Organization [facility] Address [phone] [facility] [place] [address] Care Team Providers Care Melt House Supervisor Name Role Phone Hayley Pandey MD Unavailable + [phone] Chloé Sánchez CNM Unavailable [phone] Dayana Galindo MD Unavailable Ruiz Lewis DO Unavailable Xiomara Cain Morales MD Unavailable [phone] Kate Leal MD Unavailable [phone] Tari Willams Unavailable [phone] Cynthia Allen CNM Unavailable [phone] Palak Culver CNM Unavailable [phone] Damaso Carranza MD Unavailable [phone] Ian Youssef MD Unavailable [phone] Jc Jacobs MD Unavailable [phone] Eliz Saleem CNM Unavailable [phone] Belén Bravo MD Primary Care Provider Reason for Visit * Reason Comments Foot Pain left foot pain and s welling, pt states that she was seen 1 mo ago for same thing, but has noticed the left foot colder then right foot Encounter Details Date Type Department Care Team (Late st Contact Info) Description 08/06/2020 5:00 PM EDT Office Visit [facility] [place] [address] [place] [address] Unknown, Unknown, Tc Perez APRN [address] [place] [address] [email or web address] Paresthesia of left foot (Primary Dx); Encounter for immunization Social History Tobacco Use [...] Sign Reading Time Taken Comments Blood Pressure 112/68 08/06/2020 5:05 PM EDT Pulse 91 08/06/2020 5:05 PM EDT Temperature 36.6 ??C (97.9 ??F) 08/06/2020 5:05 PM ED T Respiratory Rate 16 08/06/2020 5:05 PM EDT Oxygen Saturation 100% 08/06/2020 5:05 PM EDT Inhaled Oxygen Concentration - - Weight - - Height - - Body Mass Index - - documented in this encounter Patient Instructions * Patient Instructions* Tc Coates, ABELARDO - 08/06/2020 5:00 PM EDT Images from the original note were not included. You presented today for left foot swelling with numbness and tingling. You have strong pulses in both feet with a normal capillary refill and no evidence of arterial circulatory impairment acutely. He did have some swelling in your left calf and we have ordered an outpatient ultrasound to rule out a deep vein thrombosis or blood clot. We have also done some basic lab tests including a complete blood count, complete metabolic profile and some inflammatory markers specifically CRP and ESR. If your symptoms get worse you should go to the emergency department. Otherwise I would like you to follow-up with your primary care within the next few days. You will be called by central scheduling to beckie patel the ultrasound and if that is positive for clot you will need to go to the emergency department. Numbness and Tingling: Care Instructions Your Care Instructions Many things can cause numbness or tingling. Swelling may put pressure on a nerve. This could cause you to lose feeling or have a iweq-zys-omtfwic sensation on part of your body. Nerves may be damagedfrom trauma, toxins, or diseases, such as diabetes or multiple sclerosis (MS). Sometimes, though, the cause is not clear. If there is no clear reason for your symptoms, and you are not having any other symptoms, your doctor may suggest watching and waiting for a while to see if the numbness or tingling goes away on its own. Your doctor may want you to have blood or nerve tests to find the cause of your symptoms. Follow-up care is a dejesus part of your treatment and safety. Be sure to make and go to all appointments, and call your doctor if you are having problems. It's also a good idea to know your test resultsand keep a list of the medicines you take. How can you care for yourself at home? ?? If your doctor prescribes medicine, take it exactly as directed. Call your doctor if you think you are having a problem with your medicine. ?? If you have any swelling, put ice or a cold pack on the area for 10 to 20 minutes at a time. Puta thin cloth between the ice and your skin. When should you call for help? Call 911 anytime you think you may need emergency care. For example, call if: ? You have weakness, numbness, or tingling in both legs. ? You lose bowel or bladder control. ? You have symptoms of a stroke. These may include: ? Sudden numbness, tingling, weakness, or loss of movement in your face, arm, or leg, especially ononly one side of your body. ? Sudden vision changes. ? Sudden trouble speaking. ? Sudden confusion or trouble understanding simple statements. ? Sudden problems with walking or balance. ? A sudden, severe headache that is different from past headaches. Watch closely for changes in your health, and be sure to contact your doctor if you have any problems, or if: ? You do not get better as expected. Where can you learn more? Please login or enroll in??[facility]: [email or web address] Select the Resources icon from the Header & then select??Search [facility] Enter U128 in the search box to learn more about 'Numbness and Tingling: Care Instructions.' Current as of: October 25, 2019?Content Version: 12.8 ?? [email or web address]. Care instructions adapted under license by your healthcare professional. If you have questions about a medical condition or this instruction, always ask your healthcare professional. [email or web address] disclaims any warranty or liability for your use of this information. documented in this encounter Progress Notes * Tc Coates APRN - 08/06/2020 5:00 PM EDT [facility] Note Chief Complaint Chief Complaint Patient presents with ??? Foot Pain left foot pain and swelling, pt states that she was seen 1 mo ago for same thing, but has noticed the left foot colder then right foot History of Present Illness Marylou Shafer is a 30 y.o. female who comes to the urgent care for evaluation of intermittent left foot and calf pain and swelling and paresthesias over the last month which has been getting worse. She denies symptoms in anywhere else other than in her left lower extremity. Said no shortness of breath palpitations or cough or chest pain. Visit triage report reviewed as documented with [...] ??? Vitamin D deficiency ??? Insomnia ??? () Past Medical History: Diagnosis Date ??? Adenocarcinoma [...] tablet 20 mg, Oral, Every morning 95-iron gqo-ptxqh-zvx ( + DHA) 28 mg iron-800 mcg-200 [...] Mother Thyroid disorder ROS Review of Systems Constitutional: Negative for activity change, appetite change, chills and fever. Respiratory: Negative for cough and shortness of breath. Cardiovascular: Positive for leg swelling. Negative for chest pain and palpitations. Gastrointestinal: Negative for abdominal pain. Genitourinary: Negative for dysuria, hematuria and urgency. Skin: Negative for color change and wound. Neurological: Positive for numbness. Negative for weakness. Hematological: Negative for adenopathy. All other systems have been reviewed with the patient and are negative. Physical Exam Vital Signs: BP 112/68 Pulse 91 Temp 36.6 ??C (97.9 ??F) (Temporal) Resp 16 SpO2 100% Physical Exam Vitals and nursing note reviewed. Constitutional: General: She is not in acute distress. Appearance: Normal appearance. She is not ill-appearing. HENT: Head: Normocephalic and atraumatic. Cardiovascular: Rate and Rhythm: Normal rate and regular rhythm. Pulses: Dorsalis pedis pulses are 2+ on the right side and 2+ on the left side. Posterior tibial pulses are 2+ on the right side and 2+ on the left side. Musculoskeletal: General: Swelling present. No tenderness, deformity or signs of injury. Normal range of motion. Right lower leg: No edema. Left lower leg: Swelling present. No edema. Comments: Left calf circumference 33 cm Right calf circumference 31.5 cm No calf tenderness (but subjectively feels heaviness in left calf Visible swelling to left foot, no tenderness Strong pedal pulses palpated bilaterally (DP & PT) And also heard using Doppler Feet: Right foot: Skin integrity: Skin integrity normal. Left foot: Skin integrity: Skin integrity normal. Skin: Capillary Refill: Capillary refill takes less than 2 seconds. Coloration: Skin is not pale. Findings: No bruising or erythema. Neurological: General: No focal deficit present. Mental Status: She is alert and oriented to person, place, and time. Laboratory/Radiology Testing Results for orders placed or performed in visit on 08/06/20 Sedimentation rate (ESR) Specimen: Blood Result Value Ref Range ESR 1 0 - 20 mm/h C-Reactive Protein Specimen: Blood Result Value Ref Range C REACTIVE PROTEIN <2.9 0 - 3 mg/L Comprehensive metabolic panel Specimen: Blood Result Value Ref Range SODIUM 140 134 - 146 mmol/L POTASSIUM 4.4 3.5 - 5.3 mmol/L CHLORIDE 108 96 - 110 mmol/L CO2 32 (H) 21 - 31 mmol/L BUN 10 6 - 26 mg/dL CREATININE 0.90 0.51 - 0.95 mg/dL GLUCOSE 95 65 - 99 mg/dL ALBUMIN 4.5 3.4 - 5.2 g/dL TOTAL PROTEIN 6.9 6.2 - 8.3 g/dL CALCIUM 9.7 8.2 - 10.2 mg/dL ALKALINE PHOSPHATASE 49 45 - 117 U/L TOTAL BILIRUBIN 0.6 0.0 - 1.2 mg/dL AST 6 0 - 40 U/L ALT 16 12 - 78 U/L EGFR 86 >59 mL/min/1.73m2 ANION GAP 0 (L) 5 - 15 mmol/L CBC and differential Specimen: Blood Result Value Ref Range WBC 5.34 3.9 - 11.0 K/uL RBC 3.96 3.70 - 5.10 M/uL HGB 12.7 11.0 - 15.0 g/dL HCT 37.0 34.0 - 46.0 % PLT 197 130 - 400 K/uL MCV 93.4 80.0 - 100.0 fL MCH 32.1 27.0 - 33.0 pg MCHC 34.3 31.0 - 36.0 g/dL RDW 12.0 0.0 - 15.0 % MPV 10.1 7.0 - 11.0 fl NRBC 0.00 0 - 0.20 /100 WBCs ABSOLUTE NRBC <0.01 0 - 0.01 K/uL DIFF METHOD Auto NEUTS 58.8 % LYMPHS 29.4 % MONOS 8.6 % EOS 2.4 % BASOS 0.6 % ABSOLUTE NEUTS 3.14 1.8 - 7.0 K/uL ABSOLUTE LYMPHS 1.57 1.0 - 4.0 K/uL ABSOLUTE MONOS 0.46 0.0 - 0.8 K/uL ABSOLUTE EOS 0.13 0.0 - 0.45 K/uL ABSOLUTE BASOS 0.03 0.0 - 0.20 K/uL % IMMATURE GRANS 0.2 0.0 - 2.0 % ABS IMMATURE GRANS <0.03 0.00 - 0.09 K/uL No results found. Procedure Procedures MDM Assessment and Plan: 29-year-old female with 1 month history of intermittent left foot pain with swelling and no paresthesias. The pain has since resolved. She does have some calf swelling. She did have a history of cervical cancer and had a hysterectomy approximately 1 year ago with no further treatment. She has no history of DVT or PE. She has no sign of acute arterial occlusion. 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 As she does have some swelling of her calf I am going to rule out a DVT order an outpatient ultrasound. Of also done some basic lab work. She should have follow-up with her primary care if these are all normal within the next few days to do further evaluation. I do not see any acute worrisomefindings to explain her symptoms at this time. Diagnosis 1. Paresthesia of left foot CBC and differential Comprehensive metabolic panel C-Reactive Protein Sedimentation rate (ESR) Sedimentation rate (ESR) C-Reactive Protein Comprehensive metabolic panel CBC and differential CANCELED: US Lower Extremity Veins Duplex (Left) 2. Encounter for immunization COVID-19 Vaccine 1st Dose Appt documented in this encounter Plan of Treatment Not on file documented as of this encounter Procedures Procedure Name Priority Date/Time Associated Diagnosis Comments COMPREHENSIVE METABOLIC PANEL STAT 08/06/2020 6:06 PM EDT Paresthesia of left foot SEDIMENTATION RATE (ESR) Routine 08/06/2020 6:06 PM EDT Paresthesia of left foot HC BLOOD COUNT COMPLETE AUTO&AUTO DIFRNTL WBC STAT 08/06/2020 6:06 PM EDT Paresthesia of left foot C-REACTIVE PROTEIN Routine 08/06/2020 6: 06 PM EDT Paresthesia of left foot documented in this encounter Results * Sedimentation rate (ESR) (08/06/2020 6:06 PM EDT) ESR 1 0 - 20 mm/h [facility] Comment: New Methodology started 07/31/2020 Blood 08/06/2020 6:06 PM EDT 08/06/2020 7:57 PM EDT Tc Coates APRN LAB BLOOD ORD ERABLES Performing Organization Address City/[facility]/ZIP Co de Phone Number [address] [phone] * C-Reactive Protein (08/06/2020 6:06 PM EDT) C REACTIVE PROTEIN <2.9 0 - 3 mg/L [facility] Comment:Results >10.0 mg/L a re suggestive of acute inflammation. Blood 08/06/2020 6:06 PM EDT 08/06/2020 7:57 PM EDT Tc Coates APRN LAB BLOOD ORD ERABLES Performing Organization Address [facility]/ZIP Co de Phone Number [address] [phone] * (ABNORMAL) Comprehensive metabolic panel (08/06/2020 6:06 PM EDT) SODIUM 140 134 - 146 mmol/L [facility] POTASSIUM 4.4 3.5 - 5.3 mmol/L [facility] CHLORIDE 108 96 - 110 mmol/L [facility] CO2 32(H) 21 - 31 mmol/L [facility] BUN 10 6 - 26 mg/dL [facility] CREATININE 0.90 0.51 - 0.95 mg/dL [facility] GLUCOSE 95 65 - 99 mg/dL [facility] ALBUMIN 4.5 3.4 - 5.2 g/dL [facility] TOTAL PROTEIN 6.9 6.2 - 8.3 g/dL [facility] CALCIUM 9.7 8.2 - 10.2 mg/dL [facility] ALKALINE PHOSPHATASE 49 45 - 117 U/L [facility] TOTAL BILIRUBIN 0.6 0.0 - 1.2 mg/dL [facility] AST 6 0 - 40 U/L [facility] ALT 16 12 - 78 U/L [facility] EGFR 86 >59 mL/min/1.7 3m2 [facility] Comment:Estimated glomerular filtration rate calculated using the CKD-EPI equation. ANION GAP 0(L) 5 - 15 mmol/L [facility] Blood 08/06/2020 6:06 PM EDT 08/06/2020 7:57 PM EDT Tc Coates APRN LAB BLOOD ORD ERABLES [address] [phone] * CBC and differential (08/06/2020 6:06 PM EDT) WBC 5.34 3.9 - 11.0 K/uL [facility] RBC 3.96 3.70 - 5.10 M/uL [facility] HGB 12.7 11.0 - 15.0 g/dL [facility] HCT 37.0 34.0 - 46.0 % [facility] PLT 197 130 - 400 K/uL [facility] MCV 93.4 80.0 - 100.0 fL [facility] MCH 32.1 27.0 - 33.0 pg [facility] MCHC 34.3 31.0 - 36.0 g/dL [facility] RDW 12.0 0.0 - 15.0 % [facility] MPV 10.1 7.0 - 11.0 fl [facility] NRBC 0.00 0 - 0.20 /100 WBCs [facility] ABSOLUTE NRBC <0.01 0 - 0.01 K/uL [facility] DIFF METHOD Auto [facility] NEUTS 58.8 % [facility] LYMPHS 29.4 % [facility] MONOS 8.6 % [facility] EOS 2.4 % [facility] BASOS 0.6 % [facility] ABSOLUTE NEUTS 3.14 1.8 - 7.0 K/uL [facility] ABSOLUTE LYMPHS 1.57 1.0 - 4.0 K/uL [facility] ABSOLUTE MONOS 0.46 0.0 - 0.8 K/uL [facility] ABSOLUTE EOS 0.13 0.0 - 0.45 K/uL [facility] ABSOLUTE BASOS 0.03 0.0 - 0.20 K/uL [facility] % IMMATURE GRANS 0.2 0.0 - 2.0 % [facility] Comment:An increased IG of > 2% has been shown to be an early screen for acute infection. IG can also be elevated in severe inflammatory response, MDS, CMPN, etc. ABS IMMATURE GRANS <0.03 0.00 - 0.09 K/uL [facility] Blood 08/06/2020 6:06 PM EDT 08/06/2020 7:57 PM EDT Tc Coates APRN LAB BLOOD ORD ERABLES [address] [phone] documented in this encounter Visit Diagnoses Diagnosis Paresthesia of left foot- Primary Encounter for immunization documented in this encounter Care Teams Melt House Supervisor Relationship Specialty Start Date End Date Belén Bravo MD [address] [place] [address] [email or web address] PCP - General Family Medicine 11/01/19 06/08/23 Hayley Pandey MD [address] [place] [address] [email or web address] Historical LMR Provider 01/15/19 03/30/21 Chloé Sánchez CNM [address] [place] [address], [place] [address] [email or web address] Historical LMR Provider 01/15/19 03/30/21 Dayana Galindo MD 15 [facility] 102 [place] [address] Historical LMR Provider 01/15/19 03/30/21 Ruiz Lewis DO [address] [place] [address] [email or web address] Historical LMR Provider 01/15/19 03/30/21 Cain Morales MD [address] [place] [address] [address] [place] [address] Historical LMR Provider 01/15/19 2 Kate Leal MD 15 [facility] 102 [place] [address] [email or web address] Historical LMR Provider 01/15/19 03/30/21 Tari Willams 15 [facility] 201 [place] [address] Historical LMR Provider 01/15/19 2 Cynthia Allen CNM [address] [place] [address] [email or web address] Historical LMR Provider 01/15/19 03/30/21 Palak Culver CNM 15 [facility] 102 [place] [address] Historical LMR Provider 01/15/19 03/30/21 Damaso Carranza MD 15 [facility] 102 [place] [address] Historical LMR Provider 01/15/19 Ian Youssef MD [address] [place] [address] 100 [place] [address] Historical LMR Provider 01/15/19 2 Jc Jacobs MD [address] [place] [address] [email or web address] Historical LMR Provider 01/15/19 03/30/21 Eliz Saleem CN [address] [place] [address], [facility] [place] [address] [email or web address] Historical LMR Provider 01/15/19 03/30/21 documented as of this encounter Additional Source Comments The information contained in this document represents components of the legal health record. It is not the complete legal health record.[facility]
--- OUTSIDE RECORDS SUMMARY | 2023-11-16 12:17 | XMS_ITS | Encounter Summary ---
Author Organization [facility] Address [phone] [facility] [place] [address] Care Team Providers Care Door And Arrival Attendant Name Role Phone Damaso Carranza MD Unavailable [phone] Belén Bravo MD Primary Care Provider [phone] Reason for Visit * Reason Onset Date Comments Request For Records 04/29/[address] [facility] Encounter Details Date Type Department Care Team (Late st Contact Info) Description 04/29/[address] [address] Belén Bravo MD [address] [place] [address] [email or web address] Request For Records ([facility] ) Social History Tobacco Use Types Packs/Day Years [...] as of this encounter Progress Notes * Yaquelin Carreon - 04/29/2021 8:55 AM EST Received fax from [facility] for entire medical records SALMA received and fax to SALMA documented in this encounter Plan of Treatment Not on file documented as of this encounter Visit Diagnoses Not on filedocumented in this encounter Care Teams Door And Arrival Attendant Relationship Specialty Start Date End Date Belén Bravo MD [address] [place] [address] [email or web address] PCP - General Family Medicine 11/01/19 06/08/23 Damaso Carranza MD [email or web address] Historical LMR Provider 01/15/19 documented as of this encounter Additional Source Comments The information contained in this document represents components of the legal health record. It is not the complete legal health record.[facility]
--- OUTSIDE RECORDS SUMMARY | 2023-11-16 12:17 | XMS_ITS | Encounter Summary ---
Author Organization [facility] Address [phone] [facility] [place] [address] Care Team Providers Care Treating Inspector Name Role Phone Hayley Pandey MD Unavailable + [phone] Chloé Sánchez CNM Unavailable [phone] Dayana Galindo MD Unavailable Ruiz Lewis DO Unavailable Xiomara Cain Morales MD Unavailable [phone] Kate Leal MD Unavailable [phone] Tari Willams Unavailable [phone] Cynthia Allen CNM Unavailable [phone] Palak Culver CNM Unavailable [phone] Damaso Carranza MD Unavailable [phone] Ian Youssef MD Unavailable [phone] Jc Jacobs MD Unavailable [phone] Eliz Saleem CNM Unavailable [phone] Belén Bravo MD Primary Care Provider [phone] Reason for Visit * Reason Comments Foot Pain left foot pain and s welling for a couple of weeks no know injury Urinary Frequency frequent urination f or a couple of weeks no pain or burning Encounter Details Date Type Department Care Team (Late st Contact Info) Description 07/03/2020 4:30 PM EDT Office Visit [facility] [address] [place] [address] Unknown, Unknown, Jennifer Walls PA-C [address] [place] [address] Urinary frequency (Primary Dx); Tendinitis of left foot; Frequency of micturition Social History Tobacco Use Types Packs/Day Years [...] Sign Reading Time Taken Comments Blood Pressure 97/63 07/03/2020 4:39 PM EDT Pulse 88 07/03/2020 4:39 PM EDT Temperature 36.8 ??C (98.3 ??F) 07/03/2020 4:39 PM ED T Respiratory Rate 16 07/03/2020 4:39 PM EDT Oxygen Saturation 98% 07/03/2020 4:39 PM EDT Inhaled Oxygen Concentration - - Weight - - Height - - Body Mass Index - - documented in this encounter Patient Instructions * Patient Instructions* Jennifer Martinez PA-C - 07/03/2020 4:30 PM EDT Images from the original note were not included. I have placed an order for urine culture. We will notify if there is any evidence of urinary tract infection when it returns. This usually takes about 2 days. Frequent Urination: Care Instructions Your Care Instructions An urge to urinate frequently but usually passing only small amounts of urine is a common symptom of urinary problems, such as urinary tract infections. The bladder may become inflamed. This can cause the urge to urinate. You may try to urinate more often than usual to try to soothe that urge. Frequent urination also may be caused by sexually transmitted infections (STIs) or kidney stones. Or it may happen when something irritates the tube that carries urine from the bladder to the outsideof the body (urethra). It may also be a sign of diabetes. The cause may be hard to find. You may need tests. Follow-up care is a dejesus part of your treatment and safety. Be sure to make and go to all appointments, and call your doctor if you are having problems. It's also a good idea to know your test resultsand keep a list of the medicines you take. How can you care for yourself at home? ?? Drink extra water for the next day or two. This will help make the urine less concentrated. (If you have kidney, heart, or liver disease and have to limit fluids, talk with your doctor before you increase the amount of fluids you drink.) ?? Avoid drinks that are carbonated or have caffeine. They can irritate the bladder. For women: ?? Urinate right after you have sex. ?? After you go to the bathroom, wipe from front to back. ?? Avoid douches, bubble baths, and feminine hygiene sprays. And avoid other feminine hygiene products that have deodorants. When should you call for help? Call your doctor now or seek immediate medical care if: ? You have new symptoms, such as fever, nausea, or vomiting. ? You have new or worse symptoms of a urinary problem. For example: ? You have blood or pus in your urine. ? You have chills or body aches. ? It hurts to urinate. ? You have groin or belly pain. ? You have pain in your back just below your rib cage (the flank area). Watch closely for changes in your health, and be sure to contact your doctor if you feel thirstier than usual. Where can you learn more? Please login or enroll in??[facility] [place]: [email or web address] Select the Resources icon from the Header & then select??Search [employer] Enter I431 in the search box to learn more about 'Frequent Urination: Care Instructions.' Current as of: September 19, 2019?Content Version: 12.8 ?? [employer]. Care instructions adapted under license by your healthcare professional. If you have questions about a medical condition or this instruction, always ask your healthcare professional. [employer] disclaims any warranty or liability for your use of this information. Tendinitis: Care Instructions Your Care Instructions Tendinitis means the tendon is inflamed. This problem usually affects tendons in joints that you frequently use. A tendon is a cord that joins muscle to bone. Tendinitis can be caused by an injury. Or it may be caused by repeating a movement over and over, such as when you knit, lift things, or play video games. In rare cases, an infected wound causes it. In most cases, you can recover fully. But if the problem is caused by doing something over and overand you don't stop or change doing that, it may come back. Follow-up care is a dejesus part of your treatment and safety. Be sure to make and go to all appointments, and call your doctor if you are having problems. It's also a good idea to know your test resultsand keep a list of the medicines you take. How can you care for yourself at home? ?? Prop up the sore wrist on a pillow when you ice it or anytime you sit or lie down during the next 3 days. Try to keep it above the level of your heart. This will help reduce swelling. ?? Put ice or cold packs on your wrist for 10 to 20 minutes at a time. Try to do this every 1 to 2 hours for the next 3 days (when you are awake) or until the swelling goes down. Put a thin cloth between the ice pack and your skin. ?? If your swelling is gone after 2 or 3 days, put a heating pad set on low or a warm cloth on yourwrist for 15 to 20 minutes. This can reduce pain. ?? If your doctor gave you an elastic bandage, keep it on for the next 24 to 36 hours or for as long as your doctor told you. The bandage should be snug. But it should not be tight enough to cause numbness, tingling, or swelling. ?? If your doctor gave you a splint or brace, wear it as directed. It will protect your wrist untilit is better. ?? You may apply ice to the area for 30 minutes at a time every 1-2 hours. For the first 3 days after injury or pain onset. After 3 days, alternate ice and heat to see which one feels better for you. ?? You may take Tylenol (acetaminophen), 1000 mg 3 times a day. Please do not exceed 3000 mg a day of this medication. ?? You may also take ibuprofen, 2 to 3 tablets 3 times a day with food. Please do not exceed 2400 mg a day of this medication. ?? Consider adding topical agents, such as Biofreeze, Aspercreme with lidocaine, salon pause, or capsaicin. ?? For any swelling, please keep the body part elevated above the level of your heart when you are resting. ?? Try not to use your injured wrist and hand. ?? After you are better, do exercises to make the muscles around your tendon stronger. This can prevent the problem from coming back. Follow instructions from your doctor. When should you call for help? Call your doctor now or seek immediate medical care if: ?? Your hand or fingers are cool or pale or change colors. ?? You have tingling, weakness, or numbness in your hand and fingers. ?? Your pain gets worse. ?? The tendon may be infected. Signs of infection include: ? Increased pain and tenderness around the wrist or thumb. ? Swelling or redness of the wrist or thumb. ? A fever. Watch closely for changes in your health, and be sure to contact your doctor if: ?? You do not get better as expected. Where can you learn more? Please login or enroll in [facility] [place]: [email or web address] Select the Resources icon from the Header & then select Search [employer] Enter Z348 in the search box to learn more about 'Tenosynovitis of the Wrist: Care Instructions.' Current as of: May 23, 2019 Content Version: 12.6 ?? [employer]. Care instructions adapted under license by your healthcare professional. If you have questions about a medical condition or this instruction, always ask your healthcare professional. [employer] disclaims any warranty or liability for your use of this information. documented in this encounter Progress Notes * Jennifer Martinez PA-C - 07/03/2020 4:30 PM EDT [facility] Express Care Note [address] [place] [address] Dept Phone #: [phone] Dept Fax #: [phone] Chief Complaint Chief Complaint Patient presents with ??? Foot Pain left foot pain and swelling for a couple of weeks no know injury ??? Urinary Frequency frequent urination for a couple of weeks no pain or burning History of Present Illness Patient is a 29-year-old female who presents for evaluation of 2 complaints. #1) she states that about a week and a half ago she started developing pain in the top of her foot.She tried changing her footwear and this did not seem to help. It is worse with walking and plantarflexion. She denies any known injury, no prior injuries or surgeries. She states it did get better on its own for a couple of days, but 4 days ago it returned, and now has had some swelling primarilyat the end of the day. She denies any history of blood clots, history of malignancy or recent lengthy travel. She is not on exogenous hormones, does not smoke. #2) roughly 1-1/2 weeks ago the patient started noticed that she was urinating more frequently throughout the day. She denies any pain with urination, denies any blood in the urine. She has noticed that her voided volumes are normal, and she is not describe a sense of urgency. She does have a history of UTIs and states this is not similar to how they present. She denies fever, back pain or flank pain. Patient expresses concerns over diabetes as there is a family history of this. She also feels that she has been more thirsty than normal. Visit triage report and nursing notes reviewed as documented with the following changes [...] Medications Prior to Admission medications Medication Sig buPROPion (WELLBUTRIN XL) 150 MG ER 24 hr tablet 150 mg, Oral, Every morning ibuprofen (ADVIL,MOTRIN) 600 MG tablet 600 mg, Oral, Every 6 hours PRN LORazepam (ATIVAN) 0.5 MG tablet Take 1/2 - 1 tab by mouth twice a day if needed for severe anxiety PARoxetine (PAXIL) 20 MG tablet 20 mg, Oral, Every morning acetaminophen (TYLENOL) 325 mg tablet 975 mg, Oral, Every 6 hours 95-iron brm-pwdxf-ntp ( + DHA) 28 mg iron-800 mcg-200 mg Cmpk No dose, route, or frequency recorded. triamcinolone acetonide 0.1 % cream Topical, 2 times daily Patient not taking: Reported on 02/07/2020 Allergies Allergies Allergen Reactions ??? Heparin Analogues [...] Obesity ??? Thyroid disease Mother Thyroid disorder Additional family history noncontributory. ROS Review of Systems Constitutional: Negative. Negative for chills and fever. HENT: Negative. Negative for congestion, nosebleeds and sore throat. Eyes: Negative. Negative for discharge and itching. Respiratory: Negative. Negative for shortness of breath and wheezing. Cardiovascular: Negative. Negative for chest pain and palpitations. Gastrointestinal: Negative. Negative for abdominal pain, diarrhea, nausea and vomiting. Genitourinary: Positive for frequency. Negative for dysuria, flank pain, genital sores, hematuria and urgency. Musculoskeletal: Negative. Negative for arthralgias, back pain and myalgias. Left ankle and foot pain and swelling Skin: Negative. Negative for rash and wound. Allergic/Immunologic: Negative. Negative for immunocompromised state. Neurological: Negative. Negative for syncope and light-headedness. Psychiatric/Behavioral: Negative. Negative for agitation and confusion. All other systems reviewed and are negative. All other systems have been reviewed with the patient and are negative. Physical Exam Vital Signs: BP 97/63 (BP Location: Left arm, Patient Position: Sitting, Cuff Size: Medium) Pulse88 Temp 36.8 ??C (98.3 ??F) (Temporal) Resp 16 SpO2 98% Physical Exam Vitals and nursing note reviewed. Constitutional: General: She is not in acute distress. Appearance: Normal appearance. She is well-developed and normal weight. She is not ill-appearing, toxic-appearing or diaphoretic. HENT: Head: Normocephalic and atraumatic. Nose: Nose normal. No congestion. Mouth/Throat: Pharynx: Oropharynx is clear. No oropharyngeal exudate. Eyes: General: No scleral icterus. Right eye: No discharge. Left eye: No discharge. Conjunctiva/sclera: Conjunctivae normal. Pupils: Pupils are equal, round, and reactive to light. Cardiovascular: Rate and Rhythm: Normal rate and regular rhythm. Pulses: Normal pulses. Pulmonary: Effort: Pulmonary effort is normal. No respiratory distress. Breath sounds: No stridor. Abdominal: General: Abdomen is flat. There is no distension. Tenderness: There is no abdominal tenderness. There is no right CVA tenderness, left CVA tendernessor guarding. Musculoskeletal: General: Tenderness present. No swelling or signs of injury. Cervical back: Normal range of motion and neck supple. Right lower leg: No edema. Left lower leg: No edema. Comments: There is mild TTP of the dorsum of the left foot, and medial aspect of the ankle and Achilles tendon. More pain is elicited by lateral rotation of the ankle and plantar flexion of the foot.There is no visible erythema concerning for cellulitis. No increased warmth. She does not have any midline calf tenderness, but describes a sensation of intermittent numbness and tingling overlying the areas of pain. She does not have any symptoms on the contralateral leg. Skin: General: Skin is warm and dry. Capillary Refill: Capillary refill takes less than 2 seconds. Coloration: Skin is not jaundiced or pale. Findings: No bruising, erythema or rash. Neurological: Mental Status: She is alert and oriented to person, place, and time. Motor: No abnormal muscle tone. Deep Tendon Reflexes: Reflexes normal. Psychiatric: Mood and Affect: Mood normal. Behavior: Behavior normal. Thought Content: Thought content normal. Laboratory/Radiology Testing Results for orders placed or performed in visit on 07/03/20 POCT Urine Dipstick (Automated) Result Value Ref Range COLOR LT YELLOW TURBIDITY SLIGHTLY CLOUDY GLUCOSE, POCT Negative Negative KETONE, POCT Negative Negative OCCULT BLOOD, POCT Trace (*) Negative SPECIFIC GRAVITY, POCT 1.015 1.005 - 1.030 ALBUMIN, POCT Negative Negative Bili Negative Negative Urobilinogen 0.2 <2.0 NITRITE, POCT Negative Negative PH, POCT 7.0 5.0 - 8.0 WBC SCREEN, POCT Negative Negative No results found. Procedure Procedures Procedures: [facility] Results and Data Reviewed: I personally reviewed relevant previous medical records. Assessment and Plan: Care done here in the clinic: Urine dipstick: Trace blood, no evidence of glucose or leuks Summary: Afebrile, nontoxic-appearing female presents with polyuria without strong evidence of UTI,trace blood only in urine. Will send for culture. Patient also has lower extremity pain without anyswelling or midline DVT tenderness on palpation, low risk for DVT. Given pain distribution, I suspect tendinitis is a more likely etiology. Aggravated with movement along the distribution of tendons on the dorsum of the foot and medial aspect of the ankle All results and exam findings were discussed with patient, including urine dipstick findings, most likely etiologies by my exam. All questions were answered to the best of my ability. The treatment plan was outlined and reviewed with the patient, including OTC remedies and, rest or bracing of the ankle, RICE therapy, PCP follow-up if no improvement. Patient was offered a postop shoe but declines at this time.. Patient was given strict return precautions for any worsening symptoms or any new andconcerning symptoms, including calf pain, significant swelling of the leg or color change, fevers, back or flank pain or other concerning symptoms. The patient indicates understanding and agrees to th is plan. Diagnosis 1. Urinary frequency POCT Urine Dipstick (Automated) 2. Tendinitis of left foot CANCELED: Post-op shoe 3. Frequency of micturition Urine culture documented in this encounter Plan of Treatment Scheduled Orders Name Type Priority Associated Diagnoses Orde r Schedule POCT Urine Dipstick (Automated) Point of Care Testing Routine Urinary frequency Ordered: 07/03/2020 documented as of this encounter Procedures Procedure Name Priority Date/Time Associated Diagnosis Comments POCT URINE DIPSTICK Routine 07/03/2020 4 :55 PM EDT URINE CULTURE Routine 07/03/2020 4:50 PM EDT Frequency of micturition documented in this encounter Results * (ABNORMAL) POCT Urine Dipstick (Automated) (07/03/2020 4:55 PM EDT) COLOR LT YELLOW [facility] TURBIDITY SLIGHTLY CLOUDY [facility] GLUCOSE, POCT Negative Negative [facility] KETONE, POCT Negative Negative [facility] OCCULT BLOOD, POCT Trace(A) Negative [facility] SPECIFIC GRAVITY, POCT 1.015 1.005 - 1.030 [facility] ALBUMIN, POCT Negative Negative [facility] Bili Negative Negative [facility] Urobilinogen 0.2 <2.0 [facility] NITRITE, POCT Negative Negative [facility] PH, POCT 7.0 5.0 - 8.0 [facility] WBC SCREEN, POCT Negative Negative [facility] 07/03/2020 4:55 PM EDT 07/03/2020 4:58 PM EDT Unknown Unknown MD POINT OF CARE TEST O RDERABLES Performing Organization Address City/[facility]/ZIP Co de Phone Number [facility] [address] * (ABNORMAL) Urine culture (07/03/2020 4:50 PM EDT) Special Requests None 07/03/2020 5:04 PM EDT [facility] Urine Culture MIXED GRAM POSITIVE ORGANISMS PROBABLE CONTAMINATION 10,000 to 50,000 colony forming units per mL No sensitivity performed(A) 07/05/2020 6:48 AM EDT [facility] Urine (Urine) 07/03/2020 4:5 0 PM EDT 07/03/2020 8:00 PM EDT Jennifer Martinez PA-C MICROBIOLOGY - GENERAL ORDERABLES Performing Organization Address City/[facility]/ZIP Co de Phone Number [address] [phone] documented in this encounter Visit Diagnoses Diagnosis Urinary frequency- Primary Tendinitis of left foot Frequency of micturition Urinary frequency documented in this encounter Care Teams Treating Inspector Relationship Specialty Start Date End Date Belén Bravo MD [address] [place] [address] [email or web address] PCP - General Family Medicine 11/01/19 06/08/23 Hayley Pandey MD [address] [facility] [address] [place] [address] [email or web address] Historical LMR Provider 01/15/19 03/30/21 Chloé Sánchez CNM [address] [facility] [address] [place] [address] [email or web address] Historical LMR Provider 01/15/19 03/30/21 Dayana Galindo MD [address] [facility] [address] [place] [address] [email or web address] Historical LMR Provider 01/15/19 03/30/21 Ruiz Lewis DO [address] [place] [address] [place] [address] [email or web address] Historical LMR Provider 01/15/19 03/30/21 Cain Morales MD [address] [place] [address] [address] [place], [place] [id number] Historical LMR Provider 01/15/19 2 Kate Leal MD 15 [facility] [address] [place] [address] [email or web address] Historical LMR Provider 01/15/19 03/30/21 Tari Willams [address] [facility] [address] [place] [address] Historical LMR Provider 01/15/19 2 Cynthia Allen CNM [address] [place] [address] Drive, [facility] [place] [address] Historical LMR Provider 01/15/19 03/30/21 Palak Culver CNM [address] [address] Historical LMR Provider 01/15/19 03/30/21 Damaso Carranza MD [address] [address] Historical LMR Provider 01/15/19 Ian Youssef MD [address] [place] [address] Historical LMR Provider 01/15/19 2 Jc Jacobs MD [address] [place] [id number] [email or web address] Historical LMR Provider 01/15/19 03/30/21 Eliz Saleem CNM [employer] [facility], [place] [address] [email or web address] Historical LMR Provider 01/15/19 03/30/21 documented as of this encounter Additional Source Comments The information contained in this document represents components of the legal health record. It is not the complete legal health record.[facility]
--- OUTSIDE RECORDS SUMMARY | 2023-11-16 12:17 | XMS_ITS | Encounter Summary ---
Author Organization [facility] Address [phone] [facility] [place] [address] Care Team Providers Care Tire Classifier Name Role Phone Hayley Pandey MD Unavailable + [phone] Chloé Sánchez CNM Unavailable [phone] Dayana Galindo MD Unavailable Ruiz Lewsi DO Unavailable Xiomara Cain Morales MD Unavailable [phone] Kate Leal MD Unavailable [phone] Tari Willams Unavailable [phone] Cynthia Allen CNM Unavailable [phone] Palak Culver CNM Unavailable [phone] Damaso Carranza MD Unavailable +[phone] Ian Youssef MD Unavailable [phone] Jc Jacobs MD Unavailable +[phone] Eliz Saleem CNM Unavailable [phone] Belén Bravo MD Primary Care Provider Reason for Visit * Reason Comments Arm Injury fell onto left forea rm yesterday @ 1000 -pain radiates down into left hand and left upper arm Encounter Details Date Type Department Care Team (Late st Contact Info) Description 03/03/2020 11:00 AM EST Office Visit [facility] [address] [place] [address] Unknown, Unknown, Nish Sanon PA [address] [place] [address] [email or web address] Injury of left elbow, initial encounter (Primary Dx); Left elbow pain Social History Tobacco Use Types Packs/Day [...] Sign Reading Time Taken Comments Blood Pressure 104/68 03/03/2020 10:56 AM EST Pulse 68 03/03/2020 10:56 AM EST Temperature 36.6 ??C (97.8 ??F) 03/03/2020 10:[address] Respiratory Rate 16 03/03/2020 10:56 AM EST Oxygen Saturation 100% 03/03/2020 10:56 AM EST Inhaled Oxygen Concentration - - Weight - - Height - - Body Mass Index - - documented in this encounter Patient Instructions * Patient Instructions* Nish Alamo PA-Joey - 03/03/2020 11:00 AM EST Images from the original note were not included. Elbow Sprain: Care Instructions Your Care Instructions Please apply ice to the area for 10 minutes every 1-2 hours while awake. You may use your elbow/arm as much as you may tolerate. Tylenol as needed for pain. Evaluation of your x-rays in the urgent care today show no evidence of fracture. The radiologist will reread your x-rays to confirm our reading. If anytime your conditions worsen please make a follow-up appointment with your primary care provider and/or orthopedics. Follow up: Follow up: [facility] [address] [place] [address] Office An elbow sprain occurs when you overstretch or tear the ligaments around your elbow. Ligaments are the tough tissues that connect one bone to another. A sprain can happen when you fall or when you play sports or do chores around the house. Most sprains will heal with some treatment at home. Follow-up care is a dejesus part of your treatment and safety. Be sure to make and go to all appointments, and call your doctor if you are having problems. It's also a good idea to know your test resultsand keep a list of the medicines you take. How can you care for yourself at home? ?? Follow your doctor's directions for wearing a splint, elbow pad, sling, or elastic bandage. Wrapping the elbow may help reduce or prevent swelling. ?? Rest and protect your elbow. Do not do any activity that hurts your elbow. ?? Apply ice or a cold pack to your elbow for 10 to 20 minutes at a time to reduce swelling. Try this every 1 to 2 hours for 3 days (when you are awake) or until the swelling goes down. Put a thin cloth between the ice and your skin. ?? After 2 or 3 days, if your swelling is gone, apply a heating pad on low or a warm cloth to your elbow. This helps keep your arm flexible. Some doctors suggest that you go back and forth between hot and cold. Keep the splint dry. ?? Prop up your elbow on pillows while you apply ice or anytime you sit or lie down. Try to keep the elbow at or above the level of your heart to help reduce swelling. ?? Take pain medicines exactly as directed. ? If the doctor gave you a prescription medicine for pain, take it as prescribed. ? If you are not taking a prescription pain medicine, ask your doctor if you can take an itje-bqm-tkgmstr medicine. ?? Return to your usual level of activity slowly. When should you call for help? Call your doctor now or seek immediate medical care if: ? Your pain is worse. ? You have new or increased swelling in your elbow or hand. ? You cannot bend your arm. ? You have a fever. ? Your elbow looks red. ? You have tingling, weakness, or numbness in your elbow, hand, or fingers. Watch closely for changes in your health, and be sure to contact your doctor if: ? Your pain is not better after 2 weeks. Where can you learn more? Please login or enroll in??[facility] [place]: [email or web address] Select the Resources icon from the Header & then select??Search [facility] Enter T774 in the search box to learn more about 'Elbow Sprain: Care Instructions.' Current as of: May 23, 2019?Content Version: 12.7 ?? [id number] [employer]. Care instructions adapted under license by your healthcare professional. If you have questions about a medical condition or this instruction, always ask your healthcare professional. [employer] disclaims any warranty or liability for your use of this information. documented in this encounter Progress Notes * Nish Alamo PA-C - 03/03/2020 11:00 AM EST [facility] Care Note Chief Complaint Chief Complaint Patient presents with ??? Arm Injury fell onto left forearm yesterday @ 1000 -pain radiates down into left hand and left upper arm History of Present Illness Marylou Shafer is a 29 y.o. female who comes to the urgent care for evaluation of left elbow and arm pain. Patient is a tcnsa-rgsl-dhvfkneb female who was attempting to lift a highchair over a baby gate and tripped and fell landing on her left arm. She has complete range of motion of her left arm but pain to the elbow area. She states she had pain when she was trying to button up her son's clothing this morning. Her past medical history is significant for right cranial nerve palsy and cervical cancer.. She denies any other trauma to her left upper extremity. Visit triage report reviewed as documented with [...] ER 24 hr tablet 150 mg, Oral, Daily, For depression ibuprofen (ADVIL,MOTRIN) 600 MG tablet 600 mg, Oral, Every 6 hours PRN LORazepam (ATIVAN) 0.5 MG tablet Take 1/2 - 1 tab by mouth twice a day if needed for severe anxiety PARoxetine (PAXIL) 20 MG tablet 20 mg, Oral, Every morning 95-iron gql-qxzye-nam ( + DHA) 28 mg iron-800 mcg-200 [...] Mother Thyroid disorder ROS Review of Systems All other systems have been reviewed with the patient and are negative. Physical Exam Vital Signs: BP 104/68 Pulse 68 Temp 36.6 ??C (97.8 ??F) (Temporal) Resp 16 SpO2 100% Physical Exam Vitals signs and nursing note reviewed. Constitutional: Appearance: Normal appearance. She is normal weight. HENT: Head: Normocephalic and atraumatic. Nose: Nose normal. Mouth/Throat: Mouth: Mucous membranes are moist. Eyes: Conjunctiva/sclera: Conjunctivae normal. Neck: Musculoskeletal: Normal range of motion and neck supple. Cardiovascular: Rate and Rhythm: Regular rhythm. Heart sounds: Normal heart sounds. Pulmonary: Effort: Pulmonary effort is normal. Musculoskeletal: General: Tenderness present. Comments: Patient with pain on palpation of the left radial head. Patient is able to supinate and pronate without pain she has full range of motion flexion extension internal and external rotation. Skin: General: Skin is warm and dry. Capillary Refill: Capillary refill takes less than 2 seconds. Neurological: General: No focal deficit present. Mental Status: She is alert and oriented to person, place, and time. Mental status is at baseline. Psychiatric: Mood and Affect: Mood normal. Behavior: Behavior normal. Laboratory/Radiology Testing No results found for this visit on 03/03/20. No results found. Procedure Procedures MDM Results and Data Reviewed: I personally reviewed the radiology results. Assessment and Plan: On review of her left elbow x-rays I do not appreciate any fracture, dislocation, subluxation and or avulsion fracture. Patient will be treated conservatively with ice and Tylenol if she is not allergic and she will follow up with her primary care. Diagnosis 1. Injury of left elbow, initial encounter XR Elbow (Left) documented in this encounter Plan of Treatment Not on file documented as of this encounter Results * XR ELBOW 3 OR MORE VIEWS (LEFT) (03/03/2020 11:24 AM EST) Anatomical Region Laterality Modality Elbow Left Computed Radiogr aphy 03/03/2020 12:1 8 PM EST Impressions 03/03/2020 12:19 PM EST Radiographically normal left elbow. ?? Narrative 03/03/2020 12:19 PM EST LEFT ELBOW CLINICAL INDICATION: ??- S/P FALL [KNOWN DX] ?? . Elbow pain. ?? FINDINGS: ??Four views of the elbow are obtained. No cortical discontinuity or trabecular irregularity is seen. Bones are in normal alignment. No joint effusion is appreciated. No soft tissue abnormalities are appreciated. ?? Procedure Note Gelacio Stoddard MD - 03/03/2020 LEFT ELBOW CLINICAL INDICATION: - S/P FALL [KNOWN DX] . Elbow pain. FINDINGS: Four views of the elbow are obtained. No corticaldiscontinuity or trabecular irregularity is seen. Bones are in normal alignment. Nojoint effusion is appreciated. No soft tissue abnormalities are appreciated. IMPRESSION: Radiographically normal left elbow. Nish R Cally PA IMG XR UPPER EXTREMI TY documented in this encounter Visit Diagnoses Diagnosis Injury of left elbow, initial encounter- Primary Left elbow pain Pain in joint, upper arm Injury of left elbow, initial encounter documented in this encounter Care Teams Tire Classifier Relationship Specialty Start Date End Date Belén Bravo MD [address] [place] [address] [email or web address] PCP - General Family Medicine 11/01/19 06/08/23 Hayley Pandey MD [address] [place] [address] Historical LMR Provider 01/15/19 03/30/21 Chloé Sánchez CNM [address] [place] [address] Historical LMR Provider 01/15/19 03/30/21 Dayana Galindo MD 15 [facility] 102 [place] [address] [email or web address] Historical LMR Provider 01/15/19 03/30/21 Ruiz Lewis DO [address] [facility] [place] [address] [email or web address] Historical LMR Provider 01/15/19 03/30/21 Cain Morales MD [address] [place] [address] [address] [place] [address] Historical LMR Provider 01/15/19 2 Kate Leal MD 15 [facility] 102 [place] [address] [email or web address] Historical LMR Provider 01/15/19 03/30/21 Tari Willams 15 [facility] 201 [place] [address] Historical LMR Provider 01/15/19 2 Cynthia Allen CNM [address] [place] [address] [email or web address] Historical LMR Provider 01/15/19 03/30/21 Palak Culver CNM [address] [address] Historical LMR Provider 01/15/19 03/30/21 Damaso Carranza MD 15 [facility] 102 [place] [address] [email or web address] Historical LMR Provider 01/15/19 Ian Youssef MD 155 [facility] 100 [place] [address] Historical LMR Provider 01/15/19 2 Jc Jacobs MD [address] [place] [address] [email or web address] Historical LMR Provider 01/15/19 03/30/21 Eliz Saleem CNM [address], [place] [address] [email or web address] Historical LMR Provider 01/15/19 03/30/21 documented as of this encounter Additional Source Comments The information contained in this document represents components of the legal health record. It is not the complete legal health record.[facility]
--- OUTSIDE RECORDS SUMMARY | 2023-11-16 12:17 | XMS_ITS | Encounter Summary ---
Author Organization [facility] Address [phone] [facility]ly [facility] [email or web address] [address] Care Team Providers Care Detective And Intelligence Analyst Name Role Phone Hayley Pandey MD Unavailable + [phone] Chloé Sánchez CNM Unavailable [phone] Dayana Galindo MD Unavailable Ruiz Lewis DO Unavailable [email or web address] Cain Morales MD Unavailable [phone] Kate Leal MD Unavailable [phone] Tari Willams Unavailable [phone] Cyntiha Allen CNM Unavailable [phone] Palak Culver CNM Unavailable [phone] Damaso Carranza MD Unavailable [phone] Ina Youssef MD Unavailable [phone] Jc Jacobs MD Unavailable [phone] Eliz Saleem CNM Unavailable [phone] Belén Bravo MD Primary Care Provider Reason for Visit * Reason Onset Date Comments Post Discharge Follow Up Call 08/07/2020 Encounter Details Date Type Department Care Team (Late st Contact Info) Description 08/07/[address] [facility] Express Care [place] [address] [place] [address] Unknown, Unknown, Post Discharge Follow Up Call Social History [...] as of this encounter Progress Notes * Fanny Sheehan - 08/07/2020 11:20 AM EDT Left msg documented in this encounter Plan of Treatment Not on file documented as of this encounter Visit Diagnoses Not on filedocumented in this encounter Care Teams Detective And Intelligence Analyst Relationship Specialty Start Date End Date Belén Bravo MD [address] [place], [place] [id number] [email or web address] PCP - General Family Medicine 11/01/19 06/08/23 Hayley Pandey MD [address] [place] [address] Historical LMR Provider 01/15/19 03/30/21 Chloé Sánchez CNM [address] [place] [address] Historical LMR Provider 01/15/19 03/30/21 Dayana Galindo MD [address] [place] [address] Historical LMR Provider 01/15/19 03/30/21 Ruiz Lewis DO [address] [place] [address] [email or web address] Historical LMR Provider 01/15/19 03/30/21 Cain Morales MD [address] [place] [address] [address] [place] [address] Historical LMR Provider 01/15/19 2 Kate Leal MD 15 [facility] 102 [place] [address] [email or web address] Historical LMR Provider 01/15/19 03/30/21 Tari Willams 15 [facility] 201 [place] [address] Historical LMR Provider 01/15/19 2 Cynthia Allen CNM 67 [facility], [facility] [place] [address] [email or web address] Historical LMR Provider 01/15/19 03/30/21 Palak Culver CNM 15 [facility] 102 [place] [address] Historical LMR Provider 01/15/19 03/30/21 Damaso Carranza MD 15 [facility] 102 [place], [place] [address] [email or web address] Historical LMR Provider 01/15/19 Ian Youssef MD [facility] Jordan Haynes [address] [address] Historical LMR Provider 01/15/19 2 Jc Jacobs MD [address] [place] [address] [email or web address] Historical LMR Provider 01/15/19 03/30/21 Eliz Saleem [place] [address] [email or web address] Historical LMR Provider 01/15/19 03/30/21 documented as of this encounter Additional Source Comments The information contained in this document represents components of the legal health record. It is not the complete legal health record.[facility]
--- OUTSIDE RECORDS SUMMARY | 2023-11-16 12:17 | XMS_ITS | Encounter Summary ---
Author Organization [facility] Address [phone] [facility] [place] [address] Care Team Providers Care House Fellow Name Role Phone Hayley Pandey MD Unavailable + [phone] Chloé Sánchez CNM Unavailable [phone] Dayana Galindo MD Unavailable Ruiz Lewis DO Unavailable Xiomara Cain Morales MD Unavailable [phone] Kate Leal MD Unavailable [phone] Tari Willams Unavailable [phone] Cynthia Allen CNM Unavailable [phone] Palak Culver CNM Unavailable [phone] Damaso Carranza MD Unavailable [phone] Ian Youssef MD Unavailable [phone] Jc Jacobs MD Unavailable [phone] Eliz Saleem CNM Unavailable [phone] Belén Bravo MD Primary Care Provider Encounter Details Date Type Department Care Team (Late st Contact Info) Description 08/16/2020 Telephone [facility] [address] [place] [address] Kevin Wang MD [address] [facility], [address] [place] [address] [email or web address] Social History Tobacco Use Types Packs/Day Years [...] as of this encounter Progress Notes * Mariel Garcia - 08/16/2020 4:05 PM EDT Noted. LMOM for patient with below information. * Mariel Garcia - 08/16/2020 2:26 PM EDT Patient coming in on 09/19/20 for initial consult. Unable to retrieve past medical records. Is thereany testing that can be ordered for her ahead of time before she sees Dr. Wang. Please advise. documented in this encounter Plan of Treatment Not on file documented as of this encounter Visit Diagnoses Not on filedocumented in this encounter Care Teams House Fellow Relationship Specialty Start Date End Date Belén Bravo MD [address] [place] [address] [email or web address] PCP - General Family Medicine 11/01/19 06/08/23 Hayley Pandey MD 15 [facility] 102 [place] [address] Historical LMR Provider 01/15/19 03/30/21 Chloé Sánchez CNM 15 [facility] 102 [place] [address] [email or web address] Historical LMR Provider 01/15/19 03/30/21 Dayana Galindo MD 15 [facility] 102 [place] [address] [email or web address] Historical LMR Provider 01/15/19 03/30/21 Ruiz Lewis DO [address] [place] [address] [email or web address] Historical LMR Provider 01/15/19 03/30/21 Cain Morales MD [address] [place] [address] 401 [place] [address] Historical LMR Provider 01/15/19 2 Kate Leal MD 15 [facility] 102 [place] [address] [email or web address] Historical LMR Provider 01/15/19 03/30/21 Tari Willams 15 [facility] 201 [place] [address] Historical LMR Provider 01/15/19 2 Cynthia Allen CNM [address] [place] [address], [facility] [place] [address] [email or web address] Historical LMR Provider 01/15/19 03/30/21 Palak Culver CNM [address] [address] Historical LMR Provider 01/15/19 03/30/21 Damaso Carranza MD [address] [address] Historical LMR Provider 01/15/19 Ian Youssef MD [address] [place] [address] Historical LMR Provider 01/15/19 2 Jc Jacobs MD [address] [place] [address] [email or web address] Historical LMR Provider 01/15/19 03/30/21 Eliz Saleem CNM [facility], [place] [address] Historical LMR Provider 01/15/19 03/30/21 documented as of this encounter Additional Source Comments The information contained in this document represents components of the legal health record. It is not the complete legal health record.[facility]
--- OUTSIDE RECORDS SUMMARY | 2023-11-16 12:18 | XMS_ITS | Encounter Summary ---
Author Organization [facility] Address [phone] [facility]ly [facility] [place] [address] Care Team Providers Care Plastic Sheets Finishing Supervisor Name Role Phone Hayley Pandey MD Unavailable Chloé Sánchez CNM Unavailable [phone] Dayana Galindo MD Unavailable Ruiz Lewis DO Unavailable Xiomara Cain Morales MD Unavailable [phone] Kate Leal MD Unavailable [phone] Tari Willams Unavailable [phone] Cynthia Allen CNM Unavailable [phone] Palak Culver CNM Unavailable [phone] Damaso Carranza MD Unavailable [phone] Ian Youssef MD Unavailable Jc Jacobs MD Unavailable [phone] Eliz Saleem CNM Unavailable Belén Bravo MD Primary Care Provider Reason for Visit * Reason Onset Date Comments COVID-19 Inquiry 02/13/2020 Encounter Details Date Type Department Care Team (Late st Contact Info) Description 02/13/[address] [address] Clare Elizalde LPN [email or web address] COVID-19 Inquiry Social History Tobacco Use Types Packs/Day Years [...] as of this encounter Progress Notes * Clare Elizalde LPN - 02/13/2020 9:21 AM EST Covid-19 Screening Form Date: 02/13/20 Assessment Infection Control/OCC related: No Symptoms Fever: No Cough: Yes Mild Shortness of Breath: No Sore Throat: Yes Muscle Aches: No Nasal Congestion: Yes Loss of Smell/Taste: No Atypical symptom concerning for COVID-19: No Concerning Symptoms or Comorbidities: No Date of Symptom Onset: 02/10/2020 Additional symptom comments:Not Answered Plan Order COVID-19 PCR testing Plan Details: Cough, sore throat runny nose and nasal congestion - requesting to be covid tested. documented in this encounter Plan of Treatment Not on file documented as of this encounter Visit Diagnoses Diagnosis COVID-19- Primary documented in this encounter Additional Health Concerns Infection Onset Date Last Indicated Resolved Time CoV-Risk 02/13/2020 02/13/2020 02/27/2020 1:23 AM EST documented as of this encounter Care Teams Plastic Sheets Finishing Supervisor Relationship Specialty Start Date End Date Belén Bravo MD [address] [place] [address] PCP - General Family Medicine 11/01/19 06/08/23 Hayley Pandey MD [address] [place] [address] [email or web address] Historical LMR Provider 01/15/19 03/30/21 Chloé Sánchez CNM 15 [facility] 102 [place] [address] [email or web address] Historical LMR Provider 01/15/19 03/30/21 Dayana Galindo MD 15 [facility] 102 [place] [address] [email or web address] Historical LMR Provider 01/15/19 03/30/21 Ruiz Lewis DO 73 [facility] [place] [address] [email or web address] Historical LMR Provider 01/15/19 03/30/21 Cain Morales MD [address] [place] [address] 401 [place] [address] Historical LMR Provider 01/15/19 2 Kate Leal MD 15 [facility] 102 [place] [address] [email or web address] Historical LMR Provider 01/15/19 03/30/21 Tari Willams 15 [facility] 201 [place] [address] Historical LMR Provider 01/15/19 2 Cynthia Allen CNM [address], [place] [address] Historical LMR Provider 01/15/19 03/30/21 Palak Culver CNM [address] [address] Historical LMR Provider 01/15/19 03/30/21 Damaso Carranza MD [address] [address] Historical LMR Provider 01/15/19 Ian Youssef MD [address] [place] [address] Historical LMR Provider 01/15/19 2 Jc Jacobs MD [address] [place] [address] [email or web address] Historical LMR Provider 01/15/19 03/30/21 Eliz Saleem CNM [facility] [address], [facility] [place] [address] [email or web address] Historical LMR Provider 01/15/19 03/30/21 documented as of this encounter Additional Source Comments The information contained in this document represents components of the legal health record. It is not the complete legal health record.[facility]
--- OUTSIDE RECORDS SUMMARY | 2023-11-16 12:18 | XMS_ITS | Encounter Summary ---
Author Organization [facility] Address [phone] [facility] [place] [address] Care Team Providers Care Data Entry Coordinator Name Role Phone Hayley Pandey MD Unavailable Chloé Sánchez CNM Unavailable [phone] Dayana Galindo MD Unavailable Ruiz Lewis DO Unavailable [email or web address] Cain Morales MD Unavailable [phone] Kate Leal MD Unavailable [phone] Tari Willams Unavailable [phone] Cynthia Allen CNM Unavailable [phone] Palak Culver CNM Unavailable [phone] Damaso Carranza MD Unavailable Ian Youssef MD Unavailable Jc Jacobs MD Unavailable [phone] Eliz Saleem CNM Unavailable Belén Bravo MD Primary Care Provider Encounter Details Date Type Department Care Team (Late st Contact Info) Description 02/14/2020 Telephone [facility] Ambulatory Emergency Response [address] [place] [address] Order Mode, Customer Engagement Manager [address] [place] [address] Social History Tobacco Use Types Packs/Day Years [...] as of this encounter Progress Notes * Audrey Sterling - 02/14/2020 3:23 PM EST LM when pt did not arrive for scheduled Covid test documented in this encounter Plan of Treatment Not on file documented as of this encounter Visit Diagnoses Not on filedocumented in this encounter Additional Health Concerns Infection Onset Date Last Indicated Resolved Time CoV-Risk 02/13/2020 02/13/2020 02/27/2020 1:23 AM EST documented as of this encounter Care Teams Data Entry Coordinator Relationship Specialty Start Date End Date Belén Bravo MD [address] [place] [address] [email or web address] PCP - General Family Medicine 11/01/19 06/08/23 Hayley Pandey MD [address] [place] [address] [email or web address] Historical LMR Provider 01/15/19 03/30/21 Chloé Sánchez CNM [address] [place] [address] [email or web address] Historical LMR Provider 01/15/19 03/30/21 Dayana Galindo MD 15 [facility] 102 [place] [address] [email or web address] Historical LMR Provider 01/15/19 03/30/21 Ruiz Lewis DO [address] [place] [address] [email or web address] Historical LMR Provider 01/15/19 03/30/21 Cain Morales MD [address] [place] [address] 401 [place] [address] Historical LMR Provider 01/15/19 2 Kate Leal MD 15 [facility] 102 [place] [address] [email or web address] Historical LMR Provider 01/15/19 03/30/21 Tari Willams 15 [facility] 201 [place] [address] Historical LMR Provider 01/15/19 2 Cynthia Allen CNM [address], [address] [place] [id number] [email or web address] Historical LMR Provider 01/15/19 03/30/21 Palak Culver CNM 15 [facility] 102 [place] [address] [email or web address] Historical LMR Provider 01/15/19 03/30/21 Damaso Carranza MD 15 [facility] 102 [place] [address] [email or web address] Historical LMR Provider 01/15/19 Ian Youssef MD [address] [facility] 100 [place] [address] Historical LMR Provider 01/15/19 2 Jc Jacobs MD [address] [place] [address] [email or web address] Historical LMR Provider 01/15/19 03/30/21 Eliz Saleem CNM [address] [employer] [facility], [place] [address] [email or web address] Historical LMR Provider 01/15/19 03/30/21 documented as of this encounter Additional Source Comments The information contained in this document represents components of the legal health record. It is not the complete legal health record.[facility]
--- OUTSIDE RECORDS SUMMARY | 2023-11-16 12:18 | XMS_ITS | Encounter Summary ---
Author Organization [facility] Address [phone] [place] [address] Care Team Providers Care Associate Product Integrity Engineer Name Role Phone Hayley Pandey MD Unavailable + [phone] Chloé Sánchez CNM Unavailable [phone] Dayana Galindo MD Unavailable Ruiz Lewis DO Unavailable Xiomara Cani Morales MD Unavailable [phone] Kate Leal MD Unavailable [phone] Tari Willams Unavailable [phone] Cynthia Allen CNM Unavailable [phone] Palak Culver CNM Unavailable [phone] Damaso Carranza MD Unavailable [phone] Ian Youssef MD Unavailable [phone] Jc Jacobs MD Unavailable [phone] Eliz Saleem CNM Unavailable [phone] Belén Bravo MD Primary Care Provider Encounter Details Date Type Department Care Team (Late st Contact Info) Description 02/07/[address] [address] Paz Gandhi RN 36 [place] [address] [email or web address] Social History Tobacco Use Types Packs/Day Years [...] as of this encounter Progress Notes * Paz Gandhi LPN - 02/07/2020 4:33 PM EST A user error has taken place: encounter opened in error, closed for administrative reasons. documented in this encounter Plan of Treatment Not on file documented as of this encounter Visit Diagnoses Not on filedocumented in this encounter Care Teams Associate Product Integrity Engineer Relationship Specialty Start Date End Date Belén Bravo MD [address] [place] [address] [email or web address] PCP - General Family Medicine 11/01/19 06/08/23 Hayley Pandey MD [address] [place] [address] Historical LMR Provider 01/15/19 03/30/21 Chloé Sánchez CNM [address] [place] [address] Historical LMR Provider 01/15/19 03/30/21 Dayana Galindo MD 15 [facility] 102 [place] [address] [email or web address] Historical LMR Provider 01/15/19 03/30/21 Ruiz Lewis DO [facility] [place] [id number] [email or web address] Historical LMR Provider 01/15/19 03/30/21 Cain Morales MD [address] [place] [address] 401 [place], [place] [address] Historical LMR Provider 01/15/19 2 Kate Leal MD 15 [facility] 102 [place] [address] [email or web address] Historical LMR Provider 01/15/19 03/30/21 Tari Willams 15 [facility] 201 [place] [address] Historical LMR Provider 01/15/19 2 Cynthia Allen CNM [address] [place] [address], [place] [address] Historical LMR Provider 01/15/19 03/30/21 Palak Culver CNM 15 [facility] 102 [place] [address] Historical LMR Provider 01/15/19 03/30/21 Damaso Carranza MD 15 [facility] 102 [place] [address] [email or web address] Historical LMR Provider 01/15/19 Ian Youssef MD 155 [facility] 100 [place] [address] Historical LMR Provider 01/15/19 2 Jc Jacobs MD [address] [place] [address] [email or web address] Historical LMR Provider 01/15/19 03/30/21 Eliz Saleem CNM [employer] [facility] [place] [address] [email or web address] Historical LMR Provider 01/15/19 03/30/21 documented as of this encounter Additional Source Comments The information contained in this document represents components of the legal health record. It is not the complete legal health record.[facility]
--- OUTSIDE RECORDS SUMMARY | 2023-11-16 12:19 | XMS_ITS | Encounter Summary ---
Author Organization [facility] Address [phone] [facility] [place] [address] Care Team Providers Care College Director Name Role Phone Hayley Pandey MD Unavailable Chloé Sánchez CNM Unavailable [phone] Dayana Galindo MD Unavailable Ruiz Lewis DO Unavailable Xiomara Cain Morales MD Unavailable [phone] Kate Leal MD Unavailable [phone] Tari Willams Unavailable [phone] Cynthia Allen CNM Unavailable [phone] Palak Culver CNM Unavailable [phone] Damaso Carranza MD Unavailable Ian Youssef MD Unavailable Jc Jacobs MD Unavailable [phone] Eliz Saleem CNM Unavailable Belén Bravo MD Primary Care Provider Encounter Details Date Type Department Care Team (Latest Contact Info) Description 01/11/2020 10:35 AM EDT Procedure visit [facility] COVID-19 Drive Thru Testing [address] [place] [address] Belén Bravo MD 36 [place] [address] [email or web address] Kendal Medrano MA [address] [place] [address] [email or web address] Screening for viral disease (Primary Dx); COVID-19 Social History Tobacco Use Types Packs/Day Years [...] as of this encounter Progress Notes * Kendal Medrano - 01/11/2020 10:35 AM EDT Marylou Shafer was referred and seen for COVID testing only. Specimen obtained without incident. There was no formal clinical evaluation performed, and no professional charge is being placed. Collected by [facility] documented in this encounter Plan of Treatment Not on file documented as of this encounter Procedures Procedure Name Priority Date/Time Associated Diagnosis Comments COVID-19 RT PCR Routine 01/11/2020 10:30 AM EDT COVID-19 PCR ORDER Routine 01/11/2020 10 :30 AM EDT COVID-19 documented in this encounter Results * COVID-19 RT PCR (01/11/2020 10:30 AM EDT) Specimen Source NASOPHARYNGEAL SWAB [facility] SARS-COV 2 (COVID-19) PCR Negative for 2019-novel Coronavirus (2019-nCoV) by PCR. Negative for 2019-novel Coronavirus (2019-nCoV) by PCR. CLINICAL RESEARCH SEQUENCING PLATFORM, [facility] 01/11/2020 10:3 0 AM EDT 01/11/2020 11:52 AM EDT Belén Bravo MD BODY FLUIDS AND STO OLS ORDERABLES CLINICAL RESEARCH SEQUENCING PLATFORM, [address] [address] [place] [address], [facility] [phone] * COVID-19 PCR Order (01/11/2020 10:30 AM EDT) Specimen Source NASOPHARYNGEAL SWAB (CERTIFIED JUVENILE PROBATION OFFICER) [facility] COVID Testing Status SENT TO [facility] Symptomatic? YES [facility] Other 01/11/2020 10:3 0 AM EDT 01/11/2020 11:52 AM EDT Belén Bravo MD BODY FLUIDS AND STO OLS ORDERABLES Performing Organization Address City/[facility] Co de Phone Number [address] [phone] documented in this encounter Visit Diagnoses Diagnosis Screening for viral disease- Primary Special screening examination for unspecified viral disease COVID-19 documented in this encounter Additional Health Concerns Infection Onset Date Last Indicated Resolved Time CoV-Risk 01/11/2020 01/11/2020 01/25/2020 1:23 AM EST documented as of this encounter Care Teams College Director Relationship Specialty Start Date End Date Belén Bravo MD 36 [place] [address] [email or web address] PCP - General Family Medicine 11/01/19 06/08/23 Hayley Pandey MD 15 [facility] [address] [place] [address] Historical LMR Provider 01/15/19 03/30/21 Chloé Sánchez CNM 15 [facility] 102 [place] [address] [email or web address] Historical LMR Provider 01/15/19 03/30/21 Dayana Galindo MD 15 [facility] 102 [place] [address] [email or web address] Historical LMR Provider 01/15/19 03/30/21 Ruiz Lewis DO 73 [place] [address] [email or web address] Historical LMR Provider 01/15/19 03/30/21 Cain Morales MD [address] [place] [address] 401 [place] [address] Historical LMR Provider 01/15/19 2 Kate Leal MD 15 [facility] 102 [place] [address] [email or web address] Historical LMR Provider 01/15/19 03/30/21 Tari Willams 15 [facility] 201 [place] [address] Historical LMR Provider 01/15/19 2 Cynthia Allen CNM [address] [place] [address], [facility] [place] [address] [email or web address] Historical LMR Provider 01/15/19 03/30/21 Palak Culver CNM [address] [address] Historical LMR Provider 01/15/19 03/30/21 Damaso Carranza MD [address] [address] Historical LMR Provider 01/15/19 Ian Youssef MD [address] [place] [address] Historical LMR Provider 01/15/19 2 Jc Jacobs MD [address] [place] [address] [email or web address] Historical LMR Provider 01/15/19 03/30/21 [place] [address] Historical LMR Provider 01/15/19 03/30/21 documented as of this encounter Additional Source Comments The information contained in this document represents components of the legal health record. It is not the complete legal health record.[facility]
--- OUTSIDE RECORDS SUMMARY | 2023-11-16 12:19 | XMS_ITS | Encounter Summary ---
Author Organization [facility] Address [phone] [facility] [place] [address] Care Team Providers Care Wood Casket Assembler Name Role Phone Hayley Pandey MD Unavailable + [phone] Chloé Sánchez CNM Unavailable [phone] Dayana Galindo MD Unavailable Ruiz Lewis DO Unavailable Xiomara Cain Morales MD Unavailable [phone] Kate Leal MD Unavailable [phone] Tari Willams Unavailable [phone] Cynthia Allen CNM Unavailable [phone] Palak Culver CNM Unavailable [phone] Damaso Carranza MD Unavailable [phone] Ian Youssef MD Unavailable [phone] Jc Jacobs MD Unavailable [phone] Eliz Saleem CNM Unavailable [phone] Belén Bravo MD Primary Care Provider Reason for Visit * Reason Comments Anxiety Depression Encounter Details Date Type Department Care Team (Latest Contact Info) Description 01/03/2020 12:45 PM EDT Telemedicine - audio only [address] [place] [address] Belén Bravo MD [address] [place] [phone] [email or web address] Anxiety and depression (Primary Dx); (infant) Social History Tobacco Use Types Packs/Day Years Used Date Smoking Tobacco: Never Smokeless Tobacco: Never Alcohol Use Standard Drinks/Week Comments Not Currently 0 (1 standard drink = 0.6 oz pur e alcohol) Sex and Gender Information Value Date Recorded Sex Assigned at Female 01/11/2020 5:24 PM EDT Gender Identity Female 01/11/2020 5:24 PM EDT Sexual Orientation Straight 01/11/2020 5: 24 PM EDT documented as of this encounter Patient Instructions * Patient Instructions* Belén Bravo MD - 01/03/2020 12:45 PM EDT Taking wellbutrin, unable to go up on dose due to . Discussed options to add to wellbutrin that would be safer for . Had been on sertraline briefly when her child was younger, seemed to cause fatigue but was still getting up multiple times a night to breast feed. To try citalopram, to fax in 10mg (can cut in half for 2-4 nights to start on a lower dose if you would like). Follow up in 4 weeks but call sooner if problems or with a quick update. Trying to find a counselor that will see her remotely or where she can bring her child. Getting in sufficient exercise. Able to contract for safety. documented in this encounter Progress Notes * Belén Bravo MD - 01/03/2020 12:45 PM EDT Assessment & Plan: 1. Anxiety and depression (Primary) 2. (infant) Other orders - citalopram (CELEXA) 10 MG tablet Dispense: 30 tablet; Refill: 1 Taking wellbutrin, unable to go up on dose due to . Discussed options to add to wellbutrin that would be safer for . Had been on sertraline briefly when her child was younger, seemed to cause fatigue but was still getting up multiple times a night to breast feed. To try citalopram, to fax in 10mg (can cut in half for 2-4 nights to start on a lower dose if you would like). Follow up in 4 weeks but call sooner if problems or with a quick update. Trying to find a counselor that will see her remotely or where she can bring her child. Getting in sufficient exercise. Able to contract for safety. Subjective: HPI F/U for depression and anxiety. Seen for fatigue in September, had negative labs for anemia, thyroid, autoimmune. Taking 150mg of wellbutrin, some help but having irritability and anxiety. Trying to get into counseling. Can't find someone who will see her in the office along with being able to bring her child (no construction craft laborer) or who will do Zoom or televisit. Getting in regular exercise. Denies SI/HI. Eating well. Sleep doing okay now that child isn't up as much. Was tried on sertraline last fall, thought it was making fatigue worse although child was getting up multiple times a night. Review of Systems Constitutional: Positive for fatigue. Negative for fever. Cardiovascular: Negative for palpitations. Gastrointestinal: Negative for nausea. Musculoskeletal: Negative for myalgias. Skin: Negative for rash. Neurological: Negative for headaches. Psychiatric/Behavioral: Positive for dysphoric mood. Negative for sleep disturbance and suicidal ideas. The patient is nervous/anxious. No vitals done due to this being a phone visit. Objective: Physical Exam No physical exam performed due to this being a phone visit. Answers questions appropriately, normalspeech, no concerns about cognition/memory. documented in this encounter Plan of Treatment Not on file documented as of this encounter Visit Diagnoses Diagnosis Anxiety and depression- Primary (infant) Other specified conditions influencing health status documented in this encounter Care Teams Wood Casket Assembler Relationship Specialty Start Date End Date Belén Bravo MD [address] [place] [address] PCP - General Family Medicine 11/01/19 06/08/23 Hayley Pandey MD [address] [address] [email or web address] Historical LMR Provider 01/15/19 03/30/21 Chloé Sánchez CN [address] [address] [email or web address] Historical LMR Provider 01/15/19 03/30/21 Dayana Galindo MD [address] [address] [email or web address] Historical LMR Provider 01/15/19 03/30/21 Ruiz Lewis DO [address] [place] [address] [email or web address] Historical LMR Provider 01/15/19 03/30/21 Cain Morales MD [address] [place] [address] Historical LMR Provider 01/15/19 2 Kate Leal MD [address] [address] [email or web address] Historical LMR Provider 01/15/19 03/30/21 Tari Willams 15 [facility] 201 [place], [place] [address] Historical LMR Provider 01/15/19 [address], [place] [address] Historical LMR Provider 01/15/19 03/30/21 Palak Culver CNM [address] [place] [address] Historical LMR Provider 01/15/19 03/30/21 Damaso Carranza MD [address] [place] [address] Historical LMR Provider 01/15/19 Ian Youssef MD [address] [place] [address] Historical LMR Provider 01/15/19 2 Jc Jacobs MD [address] [place] [address] [email or web address] Historical LMR Provider 01/15/19 03/30/[address], [place] [address] Historical LMR Provider 01/15/19 03/30/21 documented as of this encounter Additional Source Comments The information contained in this document represents components of the legal health record. It is not the complete legal health record.[facility]
--- OUTSIDE RECORDS SUMMARY | 2023-11-16 12:19 | XMS_ITS | Encounter Summary ---
Author Organization [facility] Address [phone] Formerly [facility], [facility] [place] [address] Care Team Providers Care Ice Cream Shop Associate Name Role Phone Hayley Pandey MD Unavailable Chloé Sánchez CNM Unavailable [phone] Dayana Galindo MD Unavailable Ruiz Lewis DO Unavailable Xiomara Cain Morales MD Unavailable [phone] Kate Leal MD Unavailable [phone] Tari Willams Unavailable [phone] Cynthia Allen CNM Unavailable [phone] Palak Culver CNM Unavailable [phone] Damaso Carranza MD Unavailable Ian Youssef MD Unavailable [phone] Jc Jacobs MD Unavailable Eliz Saleem CNM Unavailable +[phone] Belén Bravo MD Primary Care Provider Encounter Details Date Type Department Care Team (Late st Contact Info) Description 02/06/[address] [address] Clare Elizalde LPN [email or web address] Social History Tobacco Use Types Packs/Day Years [...] Progress Notes * Clare Elizalde LPN - 02/08/2020 1:45 PM EST Attempted again to call patient - mailbox full unable to leave message * Clare Elizalde LPN - 02/06/2020 3:32 PM EST Attempted to call patient - mailbox was full, could not leave message. * Clare Elizalde LPN - 02/06/2020 3:32 PM EST ----- Message from Belén Bravo MD sent at 02/06/2020 1:42 PM EST ----- Please call patient and tell her that she does have an allergy to paroxetine in her chart. This waslisted as nausea. It is the next most safe medication to use for depression and anxiety so advised to try this medication. She can take this in the morning with food. If she wants she can start with half tablet a day. If it is causing too much nausea she can take before bed. I put the information in to the clinical summary so she can access this on the portal including signs to look out for if thebaby is having any problems with her taking the 2 new medications. We will send a form to sign for being on a controlled substance (lorazepam) that she can sign and send back to us. documented in this encounter Plan of Treatment Not on file documented as of this encounter Visit Diagnoses Not on filedocumented in this encounter Additional Health Concerns Infection Onset Date Last Indicated Resolved Time CoV-Risk 02/13/2020 02/13/2020 02/27/2020 1:23 AM EST documented as of this encounter Care Teams Ice Cream Shop Associate Relationship Specialty Start Date End Date Belén Bravo MD [address] [place] [address] [email or web address] PCP - General Family Medicine 11/01/19 06/08/23 Hayley Pandey MD 15 [place] [address] [email or web address] Historical LMR Provider 01/15/19 03/30/21 Chloé Sánchez CNM [address] [place] [address] [email or web address] Historical LMR Provider 01/15/19 03/30/21 Dayana Galindo MD [address] [place] [address] [email or web address] Historical LMR Provider 01/15/19 03/30/21 Ruiz Lewis DO [address] [place] [address] [email or web address] Historical LMR Provider 01/15/19 03/30/21 Cain Morales MD [address] [place] [address] Historical LMR Provider 01/15/19 2 Kate Leal MD 15 [facility] 102 [place] [address] [email or web address] Historical LMR Provider 01/15/19 03/30/21 Tari Willams 15 [facility] 201 [place] [address] Historical LMR Provider 01/15/19 2 Cynthia Allen CNM [facility], [facility] [place] [address] [email or web address] Historical LMR Provider 01/15/19 03/30/21 Palak Culver CNM [address] [address] Historical LMR Provider 01/15/19 03/30/21 Damaso Carranza MD [address] [address] Historical LMR Provider 01/15/19 Ian Youssef MD [address] [place] [address] 100 [place] [address] Historical LMR Provider 01/15/19 2 Jc Jacobs MD [address] [place] [address] [email or web address] Historical LMR Provider 01/15/19 03/30/21 Eliz Saleem CNM [place], [facility] [place] [address] [email or web address] Historical LMR Provider 01/15/19 03/30/21 documented as of this encounter Additional Source Comments The information contained in this document represents components of the legal health record. It is not the complete legal health record.[facility]
--- OUTSIDE RECORDS SUMMARY | 2023-11-16 12:19 | XMS_ITS | Encounter Summary ---
Author Organization [facility] Address [phone] On license of [facility] [place] [address] Care Team Providers Care Mechanical Fitter Name Role Phone Hayley Pandey MD Unavailable + [phone] Chloé Sánchez CNM Unavailable [phone] Dayana Galindo MD Unavailable Ruiz Lewis DO Unavailable Xiomara Cain Morales MD Unavailable [phone] Kate Leal MD Unavailable [phone] Tari Willams Unavailable [phone] Cynthia Allen CNM Unavailable [phone] Palak Culver CNM Unavailable [phone] Damaso Carranza MD Unavailable [phone] Ian Youssef MD Unavailable [phone] Jc Jacobs MD Unavailable [phone] Eliz Saleem CNM Unavailable [phone] Belén Bravo MD Primary Care Provider Encounter Details Date Type Department Care Team (Late st Contact Info) Description 12/28/[address] [address] Belén Bravo MD [address] [place] [address] [email or web address] Social [...] as of this encounter Progress Notes * Oriana Briggs - 12/28/2019 10:56 AM EDT Recvd fax request from from [employer] requesting ov note from 11/11/19 Faxed to AUBREY Perez LPN at [phone] documented in this encounter Plan of Treatment Not on file documented as of this encounter Visit Diagnoses Not on filedocumented in this encounter Care Teams Mechanical Fitter Relationship Specialty Start Date End Date Belén Bravo MD [address] [place] [address] [email or web address] PCP - General Family Medicine 11/01/19 06/08/23 Hayley Pandey MD [address] [place], [place] [id number] Historical LMR Provider 01/15/19 03/30/21 Chloé Sánchez CNM [address] [place] [address] Historical LMR Provider 01/15/19 03/30/21 Dayana Galindo MD 15 [facility] 102 [place] [address] [email or web address] Historical LMR Provider 01/15/19 03/30/21 Ruiz Lewis DO 73 [facility] [address] [email or web address] Historical LMR Provider 01/15/19 03/30/21 Cain Morales MD [address] [place] [address] 401 [place] [address] Historical LMR Provider 01/15/19 2 Kate Leal MD 15 [facility] 102 [place] [address] [email or web address] Historical LMR Provider 01/15/19 03/30/21 Tari Willams 15 [facility] 201 [place] [address] Historical LMR Provider 01/15/19 2 Cynthia Allen CNM [address] [place] [address], [facility] [place] [address] [email or web address] Historical LMR Provider 01/15/19 03/30/21 Palak Culver CNM [address] [address] [email or web address] Historical LMR Provider 01/15/19 03/30/21 Damaso Carranza MD 15 [facility] 102 [place] [address] Historical LMR Provider 01/15/19 Ian Youssef MD [address] [place] [address] 100 [place] [address] Historical LMR Provider 01/15/19 2 Jc Jacobs MD [address] [place] [address] [email or web address] Historical LMR Provider 01/15/19 03/30/21 Eliz Saleem [place] [address] [email or web address] Historical LMR Provider 01/15/19 03/30/21 documented as of this encounter Additional Source Comments The information contained in this document represents components of the legal health record. It is not the complete legal health record.[facility]
--- OUTSIDE RECORDS SUMMARY | 2023-11-16 12:19 | XMS_ITS | Encounter Summary ---
Author Organization [facility] Address [phone] On license of [facility] [place] [address] Care Team Providers Care Sports Medicine Specialist Name Role Phone Hayley Pandey MD Unavailable + [phone] Chloé Sánchez CNM Unavailable [phone] Dayana Galindo MD Unavailable Ruiz Lewis DO Unavailable Xiomara Cain Morales MD Unavailable [phone] Kate Leal MD Unavailable [phone] Tari Willams Unavailable [phone] Cynthia Allen CNM Unavailable [phone] Palak Culver CNM Unavailable [phone] Damaso Carranza MD Unavailable [phone] Ian Youssef MD Unavailable [phone] Jc Jacobs MD Unavailable [phone] Eliz Saleem CNM Unavailable [phone] Belén Bravo MD Primary Care Provider Encounter Details Date Type Department Care Team (Late st Contact Info) Description 11/11/2019 3:30 PM EDT Office Visit [address] [address] Belén rBavo MD 36 [place] [address] [email or web address] Kaylynn Milner, LETY 36 [place] [address] [email or web address] Acute mastitis of right breast (Primary Dx) Social History Tobacco Use Types Packs/Day Years [...] Sign Reading Time Taken Comments Blood Pressure 102/68 11/11/2019 3:48 PM EDT Pulse 78 11/11/2019 3:48 PM EDT Temperature 36.6 ??C (97.9 ??F) 11/11/2019 3:48 PM ED T Respiratory Rate - - Oxygen Saturation 100% 11/11/2019 3:48 PM EDT Inhaled Oxygen Concentration - - Weight 53.3 kg (117 lb 9.6 oz) 11/11/2019 3:48 P M EDT Height 149.9 cm (4' 11) 11/11/2019 3:48 PM EDT Body Mass Index 23.75 11/11/2019 3:48 PM EDT documented in this encounter Progress Notes * Kaylynn Milner, TUNNEL DRIER OPERATOR - 11/11/2019 3:30 PM EDT Images from the original note were not included. Subjective: Patient ID: Marylou Shafer is a 29 y.o. female. HPI: Patient is here with concern of possible mastoiditis. She is breast-feeding her 72-ifqpu-enu son. She began feeling low-grade fever, fatigue 3 days ago. She woke with discomfort in the right breast the following morning. She has continued to have right breast discomfort but the fever and malaise symptoms have not recurred since Thursday. She has been working on increasing feedings from the rightbreast and also warm compresses. She has PMH of mastoiditis in may of 2019. She was starting to reduce feedings and thinks this might be part of the reason for her symptoms today. She has not noticed any reduction in milk production from the right breast. Review of Systems Constitutional: Negative for appetite change, chills, diaphoresis, fatigue and fever. Respiratory: Negative for cough. Gastrointestinal: Negative for nausea. Musculoskeletal: Negative for arthralgias and myalgias. Skin: Negative for rash. Neurological: Negative for dizziness, weakness, light-headedness and headaches. Objective: Physical Exam Vitals signs reviewed. Constitutional: General: She is not in acute distress. Appearance: Normal appearance. She is normal weight. She is not ill-appearing or toxic-appearing. Pulmonary: Effort: Pulmonary effort is normal. Chest: Breasts: Right: Tenderness present. No swelling, inverted nipple, mass, nipple discharge or skin change. Comments: Area of discomfort/tenderness R breast R lower quadrant. No erythema or skin changes. There is no warmth. Skin: General: Skin is warm and dry. Capillary Refill: Capillary refill takes less than 2 seconds. Neurological: Mental Status: She is alert and oriented to person, place, and time. Psychiatric: Mood and Affect: Mood normal. Behavior: Behavior normal. Assessment/Plan: Problem List Items Addressed This Visit None Visit Diagnoses Acute mastitis of right breast - Primary Patient is pleasant 29-year-old. Right lower quadrant of right breast outer aspect is tender without skin changes without redness. There is no lymphadenopathy. Advise warm compresses and increased breast-feeding on the side. Advised treatment with antibiotic. In light of multiple antibiotic allergies will treat with clindamycin. She tolerated this 1 previous occasion she is aware of risk of C. Difficile and will be watchful for any adverse effects with this. She is encouraged to follow-up if her symptoms persist or worsen despite above. documented in this encounter Plan of Treatment Not on file documented as of this encounter Visit Diagnoses Diagnosis Acute mastitis of right breast- Primary documented in this encounter Care Teams Sports Medicine Specialist Relationship Specialty Start Date End Date Belén Bravo MD [address] [place] [id number] [email or web address] PCP - General Family Medicine 11/01/19 06/08/23 Hayley Pandey MD 15 [place] [address] [email or web address] Historical LMR Provider 01/15/19 03/30/21 Chloé Sánchez CNM [address] [place] [address] [email or web address] Historical LMR Provider 01/15/19 03/30/21 Dayana Galindo MD [address] [place] [address] [email or web address] Historical LMR Provider 01/15/19 03/30/[address] [place] [address] [email or web address] Historical LMR Provider 01/15/19 03/30/21 Cain Morales MD [address] [place] [address] Historical LMR Provider 01/15/19 2 Kate Leal MD [address] [place] [address] [email or web address] Historical LMR Provider 01/15/19 03/30/21 Tari Willams 15 [facility] 201 [place] [address] Historical LMR Provider 01/15/19 [address] [place] [address] Historical LMR Provider 01/15/19 03/30/21 Palak Culver CNM 15 [facility] 102 [place] [address] Historical LMR Provider 01/15/19 03/30/21 Damaso Carranza MD 15 [facility] 102 [place] [address] Historical LMR Provider 01/15/19 Ian Youssef MD [address] [place] [address] Historical LMR Provider 01/15/19 2 Jc Jacobs MD [address] [place] [address] [email or web address] Historical LMR Provider 01/15/19 03/30/[address], [place] [address] Historical LMR Provider 01/15/19 03/30/21 documented as of this encounter Additional Source Comments The information contained in this document represents components of the legal health record. It is not the complete legal health record.[facility]
--- OUTSIDE RECORDS SUMMARY | 2023-11-16 12:19 | XMS_ITS | Encounter Summary ---
Author Organization [facility] Address [phone] [facility] [employer] [place] [address] Care Team Providers Care Criminal Psychologist Name Role Phone Hayley Pandey MD Unavailable + [phone] Chloé Sánchez CNM Unavailable [phone] Dayana Galindo MD Unavailable Ruiz Lewis DO Unavailable Xiomara Cain Morales MD Unavailable [phone] Kate Leal MD Unavailable [phone] Tari Willams Unavailable [phone] Cynthia Allen CNM Unavailable [phone] Palak Culver CNM Unavailable [phone] Damaso Carranza MD Unavailable [phone] Ian Youssef MD Unavailable [phone] Jc Jacobs MD Unavailable [phone] Eliz Saleem CNM Unavailable Belén Bravo MD Primary Care Provider Reason for Visit * Reason Comments Anxiety Encounter Details Date Type Department Care Team (Latest Contact Info) Description 02/06/2020 1:00 PM EST Telemedicine - audio only [address] [address] Belén Bravo MD 36 [place] [address] [email or web address] Anxiety and depression (Primary Dx); (infant) [...] * Patient Instructions* Belén Bravo MD - 02/06/2020 1:00 PM EST To stop the citalopram since it does not seem to be helpful and in fact may be making the anxiety worse. To continue with the Wellbutrin but would like to add another medication to help efficacy of the Wellbutrin. Patient has been on paroxetine in the past but just caused some nausea. There is less transmission to the breast fluid from paroxetine then there is from fluoxetine so would like to try thismedication. To take 20 mg once a day in the morning with some food. If causing too much nausea can take at nighttime. Due to increased anxiety, will prescribe a small amount of of the benzodiazepine to help with anxiety and irritability. She has been on clonazepam and alprazolam in the past but these have more transmission into the breastmilk and can accumulate. We will try lorazepam 0.5 mg and she can take half to 1 twice a day as needed for severe anxiety. Patient able to contract for safety. She is still looking into counseling that takes her insurance and that she can do remotely or bringthe baby to the appointments. To continue with regular exercise which is helpful for anxiety. Patient is to call in 2 weeks with an update or sooner if there is any problems with the new medications. We will then make an appointment for 2 weeks after that by phone. Watch for signs and your baby of increased crying, problems gaining weight or sleep disturbance with starting the paroxetine. Watch for signs for increased fatigue if you take the lorazepam. documented in this encounter Progress Notes * Belén Bravo MD - 02/06/2020 1:00 PM EST This telemedicine visit with patient was conducted by telephone today because of social distancing precautions during the COVID-19 pandemic. A verbal consent for the telemedicine encounter was obtained from the patient. Assessment & Plan: 1. Anxiety and depression (Primary) - PARoxetine (PAXIL) 20 MG tablet Dispense: 30 tablet; Refill: 0 - LORazepam (ATIVAN) 0.5 MG tablet Dispense: 10 tablet; Refill: 0 2. (infant) To stop the citalopram since it does not seem to be helpful and in fact may be making the anxiety worse. To continue with the Wellbutrin but would like to add another medication to help efficacy of the Wellbutrin. Patient has been on paroxetine in the past but just caused some nausea. There is less transmission to the breast fluid from paroxetine then there is from fluoxetine so would like to try thismedication. To take 20 mg once a day in the morning with some food. If causing too much nausea can take at nighttime. Due to increased anxiety, will prescribe a small amount of of the benzodiazepine to help with anxiety and irritability. She has been on clonazepam and alprazolam in the past but these have more transmission into the breastmilk and can accumulate. We will try lorazepam 0.5 mg and she can take half to 1 twice a day as needed for severe anxiety. Patient able to contract for safety. She is still looking into counseling that takes her insurance and that she can do remotely or bringthe baby to the appointments. To continue with regular exercise which is helpful for anxiety. Patient is to call in 2 weeks with an update or sooner if there is any problems with the new medications. We will then make an appointment for 2 weeks after that by phone. Watch for signs and your baby of increased crying, problems gaining weight or sleep disturbance with starting the paroxetine. Watch for signs for increased fatigue if you take the lorazepam. Greater than 50% of the 20 minute visit was spent in counseling, reviewing records, labs and testing. Subjective: HPI Patient here for televisit to follow-up for anxiety. 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 She has been on Wellbutrin but that has not been sufficient for anxiety. She has been on Zoloft in the past and actually paroxetine which caused some nausea. We put her on citalopram 10 mg but she is feels she is having more anxiety and irritability on this dose of medication. She is still exercising on a regular basis and she is eating about the same. Her sleep is interrupted with breast-feeding baby but is no worse on the citalopram. She is still having some increased fatigue. She has not been able to find a counselor that we will either see her remotely or that she can bring the baby to appointments that is covered by her insurance. She has been on alprazolam and clonazepam in the past to help with anxiety symptoms. She found these to be helpful. She denies SI. Review of Systems Constitutional: Positive for fatigue. Negative for activity change, appetite change and fever. HENT: Negative for sore throat. Respiratory: Negative for shortness of breath. Gastrointestinal: Negative for nausea. Skin: Negative for rash. Psychiatric/Behavioral: Positive for dysphoric mood and sleep disturbance. Negative for suicidal ideas. The patient is nervous/anxious. No vitals done due to this being a phone visit. Objective: Physical Exam No physical exam performed due to this being a phone visit. Answers questions appropriately, normalspeech, no concerns about cognition/memory. documented in this encounter Plan of Treatment Not on file documented as of this encounter Visit Diagnoses Diagnosis Anxiety and depression- Primary () Other specified conditions influencing health status documented in this encounter Care Teams Criminal Psychologist Relationship Specialty Start Date End Date Belén Bravo MD [address] [place] [address] [email or web address] PCP - General Family Medicine 11/01/19 06/08/23 Hayley Pandey MD [address] [place] [address] 102 [place] [address] [email or web address] Historical LMR Provider 01/15/19 03/30/21 Chloé Sánchez CNM 15 [facility] 102 [place] [address] [email or web address] Historical LMR Provider 01/15/19 03/30/21 Dayana Galindo MD 15 [facility] 102 [place] [address] [email or web address] Historical LMR Provider 01/15/19 03/30/21 Ruiz Lewis DO [address] [place] [address] [place] [id number] [email or web address] Historical LMR Provider 01/15/19 03/30/21 Cain Morales MD [address] [place] [address] [address] [place] [address] Historical LMR Provider 01/15/19 2 Kate Leal MD 15 [facility] 102 [place] [address] [email or web address] Historical LMR Provider 01/15/19 03/30/21 Tari Willams 15 [facility] 201 [place], [place] [address] Historical LMR Provider 01/15/19 [address], [place] [address] Historical LMR Provider 01/15/19 03/30/21 Palak Culver CNM [address] [address] [email or web address] Historical LMR Provider 01/15/19 03/30/21 Damaso Carranza MD [address] [address] Historical LMR Provider 01/15/19 Ian Youssef MD [address] [place] [address] Historical LMR Provider 01/15/19 2 Jc Jacobs MD [address] [place] [address] [email or web address] Historical LMR Provider 01/15/19 03/30/21 Eliz Saleem CNM [facility], [facility] [place] [address] [email or web address] Historical LMR Provider 01/15/19 03/30/21 documented as of this encounter Additional Source Comments The information contained in this document represents components of the legal health record. It is not the complete legal health record.[facility]
--- OUTSIDE RECORDS SUMMARY | 2023-11-16 12:19 | XMS_ITS | Encounter Summary ---
Author Organization [facility] Address [phone] [facility] [place] [address] Care Team Providers Care Plastering Supervisor Name Role Phone Hayley Pandey MD Unavailable + [phone] Chloé Sánchez CNM Unavailable [phone] Dayana Galindo MD Unavailable Ruiz Lewis DO Unavailable [email or web address] Cain Morales MD Unavailable [phone] Kate Leal MD Unavailable [phone] Tari Willams Unavailable [phone] Cynthia Allen CNM Unavailable [phone] Palak Culver CNM Unavailable [phone] Damaso Carranza MD Unavailable [phone] Ian Youssef MD Unavailable [phone] Jc Jacobs MD Unavailable [phone] Eliz Saleem CNM Unavailable [phone] Belén Bravo MD Primary Care Provider Reason for Visit * Reason Onset Date Comments Post Discharge Follow Up Call 01/16/2020 Encounter Details Date Type Department Care Team (Late st Contact Info) Description [facility] [address] [place] [address] Unknown, Unknown, Post Discharge Follow Up Call [...] as of this encounter Progress Notes * Danay Johnson - 01/16/2020 11:32 AM EDT No answer, message left. documented in this encounter Plan of Treatment Not on file documented as of this encounter Visit Diagnoses Not on filedocumented in this encounter Additional Health Concerns Infection Onset Date Last Indicated Resolved Time CoV-Risk 01/11/2020 01/11/2020 01/25/2020 1:23 AM EST documented as of this encounter Care Teams Plastering Supervisor Relationship Specialty Start Date End Date Belén Bravo MD [address] [place] [address] [email or web address] PCP - General Family Medicine 11/01/19 06/08/23 Hayley Pandey MD [address] [place] [address] Historical LMR Provider 01/15/19 03/30/21 Chloé Sánchez CNM [address] [place] [address] Historical LMR Provider 01/15/19 03/30/21 Dayana Galindo MD 15 [facility] 102 [place] [address] [email or web address] Historical LMR Provider 01/15/19 03/30/21 Ruiz Lewis DO [address] [facility] [place] [address] [email or web address] Historical LMR Provider 01/15/19 03/30/21 Cain Morales MD [address] [place] [address] 401 [place] [address] Historical LMR Provider 01/15/19 2 Kate Leal MD 15 [facility] 102 [place] [address] [email or web address] Historical LMR Provider 01/15/19 03/30/21 Tari Willams 15 [facility] 201 [place] [address] Historical LMR Provider 01/15/19 2 Cynthia Allen CNM [address] [place] [address] [email or web address] Historical LMR Provider 01/15/19 03/30/21 Palak Culver CNM [address] [address] [email or web address] Historical LMR Provider 01/15/19 03/30/21 Damaso Carranza MD 15 [facility] 102 [place] [address] [email or web address] Historical LMR Provider 01/15/19 Ian Youssef MD 155 [facility] 100 [place] [address] Historical LMR Provider 01/15/19 2 Jc Jacobs MD [address] [place] [address] [email or web address] Historical LMR Provider 01/15/19 03/30/21 Eliz Saleem CNM 67 [facility], [facility] [place] [address] [email or web address] Historical LMR Provider 01/15/19 03/30/21 documented as of this encounter Additional Source Comments The information contained in this document represents components of the legal health record. It is not the complete legal health record.[facility]
--- OUTSIDE RECORDS SUMMARY | 2023-11-16 12:19 | XMS_ITS | Encounter Summary ---
Author Organization [facility] Address [phone] [facility] [place] [address] Care Team Providers Care Factory Clerk Name Role Phone Hayley Pandey MD Unavailable + [phone] Chloé Sánchez CNM Unavailable [phone] Dayana Galindo MD Unavailable Ruzi Lewis DO Unavailable Xiomara Cain Morales MD Unavailable [phone] Kate Leal MD Unavailable [phone] Tari Willams Unavailable [phone] Cynthia Allen CNM Unavailable [phone] Palak Culver CNM Unavailable [phone] Damaso Carranza MD Unavailable [phone] Ian Youssef MD Unavailable [phone] Jc Jacobs MD Unavailable [phone] Eliz Saleem CNM Unavailable Belén Bravo MD Primary Care Provider Reason for Visit * Reason Comments Neck Pain Encounter Details Date Type Department Care Team (Late st Contact Info) Description 01/04/2020 9:30 AM EDT Office Visit [address] [address] Kaylynn Milner, INDUSTRIAL TRAINING SPECIALIST [address] [place] [address] [email or web address] Cervicalgia (Primary Dx); Immunization due Social History Tobacco Use Types Packs/Day Years [...] Sign Reading Time Taken Comments Blood Pressure 108/58 01/04/2020 9:55 AM EDT Pulse 87 01/04/2020 9:55 AM EDT Temperature 36.3 ??C (97.3 ??F) 01/04/2020 9:55 AM ED T Respiratory Rate - - Oxygen Saturation 100% 01/04/2020 9:55 AM EDT Inhaled Oxygen Concentration - - Weight 51.7 kg (114 lb) 01/04/2020 9:55 AM EDT Height - - Body Mass Index 23.03 11/11/2019 3:48 PM EDT documented in this encounter Patient Instructions * Patient Instructions* Kaylynn Milner, SOFTWARE CONFIGURATION MANAGER - 01/04/2020 9:30 AM EDT Images from the original note were not included. Neck Pain: Care Instructions Your Care Instructions You can have neck pain anywhere from the bottom of your head to the top of your shoulders. It can spread to the upper back or arms. Injuries, painting a ceiling, sleeping with your neck twisted, staying in one position for too long, and many other activities can cause neck pain. Most neck pain gets better with home care. Your doctor may recommend medicine to relieve pain or relax your muscles. He or she may suggest exercise and physical therapy to increase flexibility and relieve stress. You may need to wear a special (cervical) collar to support your neck for a day or two. Follow-up care is a dejesus part of your treatment and safety. Be sure to make and go to all appointments, and call your doctor if you are having problems. It's also a good idea to know your test resultsand keep a list of the medicines you take. How can you care for yourself at home? ?? Try using a heating pad on a low or medium setting for 15 to 20 minutes every 2 or 3 hours. Try a warm shower in place of one session with the heating pad. ?? You can also try an ice pack for 10 to 15 minutes every 2 to 3 hours. Put a thin cloth between the ice and your skin. ?? Take pain medicines exactly as directed. ? If the doctor gave you a prescription medicine for pain, take it as prescribed. ? If you are not taking a prescription pain medicine, ask your doctor if you can take an wfvi-dyp-mzelndq medicine. ?? If your doctor recommends a cervical collar, wear it exactly as directed. When should you call for help? Call your doctor now or seek immediate medical care if: ? You have new or worsening numbness in your arms, buttocks or legs. ? You have new or worsening weakness in your arms or legs. (This could make it hard to stand up.) ? You lose control of your bladder or bowels. Watch closely for changes in your health, and be sure to contact your doctor if: ? Your neck pain is getting worse. ? You are not getting better after 1 week. ? You do not get better as expected. Where can you learn more? Please login or enroll in??Patient [place]: [email or web address] Select the Resources icon from the Header & then select??Search [employer] Enter X023 in the search box to learn more about 'Neck Pain: Care Instructions.' Current as of: May 23, 2019?Content Version: 12.6 ?? [id number] [employer]. Care instructions adapted under license by your healthcare professional. If you have questions about a medical condition or this instruction, always ask your healthcare professional. [employer] disclaims any warranty or liability for your use of this information. documented in this encounter Progress Notes * Kaylynn Milner APRN - 01/04/2020 9:30 AM EDT Subjective: Patient ID: Marylou Shafer is a 29 y.o. female. HPI: Pt of Dr Bravo, new to me. Here with concern of R sided neck discomfort since this morning when she stretched with her arms overhead and neck extended. She has had some improvement with Ibuprofen and heat. Otherwise no known injury, strain or overuse. No numbness or weakness. She has 1y/o son. She is R hand dominant. Review of Systems Constitutional: Negative for appetite change, chills, diaphoresis, fatigue and fever. HENT: Negative for congestion, postnasal drip, sinus pressure, sore throat and trouble swallowing. Respiratory: Negative for cough and shortness of breath. Cardiovascular: Negative for chest pain, palpitations and leg swelling. Genitourinary: Negative for bladder incontinence. Musculoskeletal: Negative for myalgias. Skin: Negative for rash. Neurological: Negative for dizziness, light-headedness and headaches. Objective: Physical Exam Vitals signs reviewed. Constitutional: General: She is not in acute distress. Appearance: Normal appearance. She is well-developed. She is not ill-appearing. Eyes: Conjunctiva/sclera: Conjunctivae normal. Cardiovascular: Rate and Rhythm: Normal rate and regular rhythm. Pulses: Normal pulses. Heart sounds: Normal heart sounds. Pulmonary: Effort: Pulmonary effort is normal. Abdominal: Tenderness: There is no right CVA tenderness or left CVA tenderness. Musculoskeletal: Cervical back: She exhibits decreased range of motion and pain. She exhibits no tenderness and no bony tenderness. Skin: General: Skin is warm and dry. Capillary Refill: Capillary refill takes less than 2 seconds. Neurological: General: No focal deficit present. Mental Status: She is alert and oriented to person, place, and time. Motor: No weakness. Psychiatric: Mood and Affect: Mood normal. Behavior: Behavior normal. Assessment/Plan: Problem List Items Addressed This Visit None Visit Diagnoses Cervicalgia - Primary Immunization due Relevant Orders Influenza Vaccine (6mo up) Quadrivalent Preservative Free IM (Completed) Pt is pleasant 29y/o. She has mildly reduced range of motion. Clinical history and exam consistent with neck strain. No weakness or radiculopathy. Symptomatic treatment reviewed. Advise follow up if symptoms persist Or worsen over the course of the next wk. Flu shot given. documented in this encounter Plan of Treatment Not on file documented as of this encounter Visit Diagnoses Diagnosis Cervicalgia- Primary Immunization due documented in this encounter Care Teams Factory Clerk Relationship Specialty Start Date End Date Belén Bravo MD [address] [place], [place] [id number] [email or web address] PCP - General Family Medicine 11/01/19 06/08/23 Hayley Pandey MD [address] [place] [address] [email or web address] Historical LMR Provider 01/15/19 03/30/21 Chloé Sánchez CNM [address] [place] [address] [email or web address] Historical LMR Provider 01/15/19 03/30/21 Dayana Galindo MD [address] [place] [id number] [email or web address] Historical LMR Provider 01/15/19 03/30/[address] [place] [address] [email or web address] Historical LMR Provider 01/15/19 03/30/21 Cain Morales MD [address] [place] [address] Historical LMR Provider 01/15/19 2 Kate Leal MD 15 [facility] 102 [place] [address] [email or web address] Historical LMR Provider 01/15/19 03/30/21 Myrna Willamsne 15 [facility] 201 [place] [address] Historical LMR Provider 01/15/19 2 Cynthia Allen CNM [employer] [facility], [facility] [place] [address] Historical LMR Provider 01/15/19 03/30/21 Palak Culver CNM [address] [address] Historical LMR Provider 01/15/19 03/30/21 Damaso Carranza MD 15 [facility] 102 [place] [address] Historical LMR Provider 01/15/19 Ian Youssef MD [address] [place] [address] 100 [place] [address] Historical LMR Provider 01/15/19 2 Jc Jacobs MD [address] [place] [address] [email or web address] Historical LMR Provider 01/15/19 03/30/21 Eliz Saleem CNM [employer], [facility] [place] [address] [email or web address] Historical LMR Provider 01/15/19 03/30/21 documented as of this encounter Additional Source Comments The information contained in this document represents components of the legal health record. It is not the complete legal health record.[facility]
--- OUTSIDE RECORDS SUMMARY | 2023-11-16 12:19 | XMS_ITS | Encounter Summary ---
Author Organization [facility] Address [phone] [facility] [place] [address] Care Team Providers Care Warranty Coordinator Name Role Phone Hayley Pandey MD Unavailable Chloé Sánchez CNM Unavailable [phone] Dayana Galindo MD Unavailable Ruiz Lewis DO Unavailable Xiomara Cain Morales MD Unavailable [phone] Kate Leal MD Unavailable [phone] Tari Willams Unavailable [phone] Cynthia Allen CNM Unavailable [phone] Palak Culver CNM Unavailable [phone] Damaso Carranza MD Unavailable [phone] Ian Youssef MD Unavailable Jc Jacobs MD Unavailable Eliz Saleem CNM Unavailable Belén Bravo MD Primary Care Provider Reason for Visit * Reason Onset Date Comments COVID-19 Inquiry 01/11/2020 Encounter Details Date Type Department Care Team (Late st Contact Info) Description 01/11/[address] [address] Clare Elizalde LPN [email or web address] COVID-19 Inquiry Social History Tobacco Use [...] Progress Notes * Clare Elizalde LPN - 01/11/2020 9:18 AM EDT Covid-19 Screening Form Date: 01/11/20 Assessment Infection Control/OCC related: No Symptoms Fever: Yes Cough: No Mild Shortness of Breath: No Sore Throat: Yes Muscle Aches: Yes Nasal Congestion: Yes Loss of Smell/Taste: No Atypical symptom concerning for COVID-19: No Concerning Symptoms or Comorbidities: No Date of Symptom Onset: 01/10/2020 Additional symptom comments:Hx Of Ca-Also Having Extreme Fatigue Plan Order COVID-19 PCR testing Plan Details: covid concerns documented in this encounter Plan of Treatment Not on file documented as of this encounter Results * COVID-19 PCR Order (01/11/2020 10:30 AM EDT) Specimen Source 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 YES [facility] Other 01/11/2020 10:3 0 AM EDT 01/11/2020 11:52 AM EDT Belén Bravo MD B[employer]ANE[employer] ORDERABLES [id number] [place] [address] documented in this encounter Visit Diagnoses Diagnosis COVID-19- Primary documented in this encounter Additional Health Concerns Infection Onset Date Last Indicated Resolved Time CoV-Risk 01/11/2020 01/11/2020 01/25/2020 1:23 AM EST documented as of this encounter Care Teams Warranty Coordinator Relationship Specialty Start Date End Date Belén Bravo MD [address] [place] [address] [email or web address] PCP - General Family Medicine 11/01/19 06/08/23 Hayley Pandey MD [address] [place] [address] [email or web address] Historical LMR Provider 01/15/19 03/30/21 Chloé Sánchez CNM [address] [place] [address] [email or web address] Historical LMR Provider 01/15/19 03/30/21 Dayana Galindo MD [address] [place] [address] [email or web address] Historical LMR Provider 01/15/19 03/30/21 Ruiz Lewis DO [address] [place] [address] [email or web address] Historical LMR Provider 01/15/19 03/30/21 Cain Morales MD [address] [place] [address] Historical LMR Provider 01/15/19 2 Kate Leal MD 15 [facility] 102 [place] [address] [email or web address] Historical LMR Provider 01/15/19 03/30/21 Tari Willams 15 [facility] 201 [place] [address] Historical LMR Provider 01/15/19 2 Cynthia Allen CNM [address] [place] [address], [facility] [place] [address] [email or web address] Historical LMR Provider 01/15/19 03/30/21 Palak Culver CNM 15 [facility] 102 [place] [address] [email or web address] Historical LMR Provider 01/15/19 03/30/21 Damaso Carranza MD 15 [facility] 102 [place] [address] Historical LMR Provider 01/15/19 Ian Youssef MD [address] [place] [address] 100 [place] [address] Historical LMR Provider 01/15/19 2 Jc Jacobs MD [address] [place] [address] [email or web address] Historical LMR Provider 01/15/19 03/30/21 Eliz Saleem CNM [employer] [address], [facility] [place] [address] [email or web address] Historical LMR Provider 01/15/19 03/30/21 documented as of this encounter Additional Source Comments The information contained in this document represents components of the legal health record. It is not the complete legal health record.[facility]
--- OUTSIDE RECORDS SUMMARY | 2023-11-16 12:19 | XMS_ITS | Encounter Summary ---
Author Organization [facility] Address [phone] [facility] [email or web address] [address] Care Team Providers Care Medical Instructor Name Role Phone Hayley Pandey MD Unavailable + [phone] Chloé Sánchez CNM Unavailable [phone] Dayana Galindo MD Unavailable Ruiz Lewis DO Unavailable Xiomara Cain Morales MD Unavailable [phone] Kate Leal MD Unavailable [phone] Tari Willams Unavailable [phone] Cynthia Allen CNM Unavailable [phone] Palak Culver CNM Unavailable [phone] Damaso Carranza MD Unavailable [phone] Ian Youssef MD Unavailable [phone] Jc Jacobs MD Unavailable [phone] Eliz Saleem CNM Unavailable [phone] Belén Bravo MD Primary Care Provider Reason for Visit * Reason Comments Nausea/Vomiting woke up vomited 7-8 since 0730 this morning, Pt also saying she's been having R sided abdominal pain only with in the last hour, she has popcorn shrimp last night, ws able to take Pepto at 1115. Encounter Details Date Type Department Care Team (Latest Contact Info) Description 01/15/2020 12:00 PM EDT Office Visit [facility] [place] [address] [place] [address] Unknown, Unknown, Brian Allison, [address] [place] [address] Nausea and vomiting, intractability of vomiting not specified, unspecified vomiting type (Primary Dx) Social History Tobacco Use Types [...] Sign Reading Time Taken Comments Blood Pressure 111/68 01/15/2020 12:06 PM EDT Pulse 104 01/15/2020 12:06 PM EDT Temperature 37 ??C (98.6 ??F) 01/15/2020 12:06 PM EDT Respiratory Rate 14 01/15/2020 12:06 PM EDT Oxygen Saturation 99% 01/15/2020 12:06 PM EDT Inhaled Oxygen Concentration - - Weight - - Height - - Body Mass Index - - documented in this encounter Patient Instructions * Patient Instructions* Brian Pugh, - 01/15/2020 12:00 PM EDT Images from the original note were not included. Nausea and Vomiting: Care Instructions Your Care Instructions When you are nauseated, you may feel weak and sweaty and notice a lot of saliva in your mouth. Nausea often leads to vomiting. Most of the time you do not need to worry about nausea and vomiting, butthey can be signs of other illnesses. Two common causes of nausea and vomiting are stomach flu and food poisoning. Nausea and vomiting from viral stomach flu will usually start to improve within 24 hours. Nausea and vomiting from food poisoning may last from 12 to 48 hours. The doctor has checked you carefully, but problems can develop later. If you notice any problems ornew symptoms, get medical treatment right away. Follow-up care is a dejesus part of your treatment and safety. Be sure to make and go to all appointments, and call your doctor if you are having problems. It's also a good idea to know your test resultsand keep a list of the medicines you take. How can you care for yourself at home? ?? To prevent dehydration, drink plenty of fluids, enough so that your urine is light yellow or clear like water. Choose water and other caffeine-free clear liquids until you feel better. If you havekidney, heart, or liver disease and have to limit fluids, talk with your doctor before you increasethe amount of fluids you drink. ?? Rest in bed until you feel better. ?? When you are able to eat, try clear soups, mild foods, and liquids until all symptoms are gone for 12 to 48 hours. Other good choices include dry toast, crackers, cooked cereal, and gelatin dessert, such as Jell-O. When should you call for help? Call 911 anytime you think you may need emergency care. For example, call if: ? You passed out (lost consciousness). Call your doctor now or seek immediate medical care if: ? You have symptoms of dehydration, such as: ? Dry eyes and a dry mouth. ? Passing only a little dark urine. ? Feeling thirstier than usual. ? You have new or worsening belly pain. ? You have a new or higher fever. ? You vomit blood or what looks like coffee grounds. Watch closely for changes in your health, and be sure to contact your doctor if: ? You have ongoing nausea and vomiting. ? Your vomiting is getting worse. ? Your vomiting lasts longer than 2 days. ? You are not getting better as expected. Where can you learn more? Please login or enroll in??Patient [place]: [email or web address] Select the Resources icon from the Header & then select??Search Mtime Enter H591 in the search box to learn more about 'Nausea and Vomiting: Care Instructions.' Current as of: September 15, 2018?Content Version: 12.6 ?? [email or web address]. Care instructions adapted under license by your healthcare professional. If you have questions about a medical condition or this instruction, always ask your healthcare professional. [email or web address] disclaims any warranty or liability for your use of this information. documented in this encounter Progress Notes * Brian Pugh DO - 01/15/2020 12:00 PM EDT Chief Complaint Chief Complaint Patient presents with ??? Nausea/Vomiting woke up vomited 7-8 since 0730 this morning, Pt also saying she's been having R sided abdominal pain only with in the last hour, she has popcorn shrimp last night, ws able to take Pepto at 1115. History of Present Illness Emesis This is a new problem. The current episode started today. The problem occurs 5 to 10 times per day.The problem has been unchanged. The emesis has an appearance of stomach contents. There has been nofever. Associated symptoms include abdominal pain. Pertinent negatives include no chills, coughing,diarrhea, fever or myalgias. Risk factors: A popcorn shrimp last night but other sedated are fine. Treatments tried: Pepto about an hour prior to arrival which is stated. The treatment provided no relief. Visit triage report reviewed and agreed with as documented. Problem List and Past Medical History Patient [...] tablet 150 mg, Oral, Daily, For depression citalopram (CELEXA) 10 MG tablet 10 mg, Oral, Daily ibuprofen (ADVIL,MOTRIN) 600 MG tablet 600 mg, Oral, Every 6 hours PRN 95-iron ufc-hmoct-dnu ( + DHA) 28 mg iron-800 mcg-200 mg Cmpk No dose, route, or frequency recorded. triamcinolone acetonide 0.1 % cream Topical, 2 times daily ondansetron (ZOFRAN-ODT) 4 MG disintegrating tablet 4 mg, Oral, Every 8 hours PRN Allergies Allergies Allergen Reactions ??? [...] Obesity ??? Thyroid disease Mother Thyroid disorder The family history is reviewed and non contributory unless noted above. ROS Review of Systems Constitutional: Negative for chills and fever. HENT: Negative for congestion, rhinorrhea and sore throat. Respiratory: Negative for cough and shortness of breath. Gastrointestinal: Positive for abdominal pain, nausea and vomiting. Negative for blood in stool anddiarrhea. Musculoskeletal: Negative for myalgias. Skin: Negative for rash. Allergic/Immunologic: Negative for immunocompromised state. Hematological: Negative for adenopathy. All other systems reviewed and are negative. All other systems have been reviewed with the patient and are negative. Physical Exam Vital Signs: BP 111/68 Pulse (!) 104 Temp 37 ??C (98.6 ??F) (Oral) Resp 14 SpO2 99% Physical Exam Vitals signs and nursing note reviewed. Constitutional: Appearance: Normal appearance. HENT: Head: Normocephalic and atraumatic. Eyes: Extraocular Movements: Extraocular movements intact. Pupils: Pupils are equal, round, and reactive to light. Neck: Musculoskeletal: Normal range of motion. Pulmonary: Effort: No respiratory distress. Abdominal: General: Abdomen is flat. Bowel sounds are normal. Palpations: Abdomen is soft. Tenderness: There is no abdominal tenderness. Musculoskeletal: Normal range of motion. Skin: General: Skin is warm and dry. Neurological: General: No focal deficit present. Mental Status: She is alert and oriented to person, place, and time. Psychiatric: Mood and Affect: Mood normal. Behavior: Behavior normal. Thought Content: Thought content normal. Judgment: Judgment normal. 1315pm: Patient had a liter of fluid no vomiting minimal nausea. Laboratory/Radiology Testing Orders Placed This Encounter Procedures ??? Saline Lock ??? POCT WBC ? ? POCT iStat Chem8+ (BMP with H&H) ? ? POCT iStat Chem8+ (BMP with H&H) Ordered by UNKNOWN UNKNOWN Results for orders placed or performed in visit on 01/15/20 POCT WBC Result Value Ref Range WBC 7.9 3.9 - 11.0 K/uL POCT iStat Chem8+ (BMP with H&H) Result Value Ref Range TOTAL CO2 22 (L) 24 - 29 mmol/L IONIZED CALCIUM 4.70 4.5 - 5.3 mmol/L BUN 13 8 - 26 mg/dL SODIUM 142 138 - 146 mmol/L POTASSIUM 3.5 3.5 - 4.9 mmol/L CHLORIDE 104 98 - 109 mmol/L ISTAT WB GLUCOSE 70 70 - 105 mg/dl Creatinine 0.60 0.60 - 1.30 mg/dl HCT (ISTAT) 45.0 38.0 - 46.0 % HGB 15.3 12.0 - 15.6 gm/dl Procedure Procedures MDM Results and Data Reviewed: I personally reviewed the lab results. Interventions: Check labs. Assessment and Plan: Plan: Discussed with patient that likely this is a viral gastroenteritis. Since no one else is sick that ate the popcorn trip unlikely to be foodborne. She will continue with clear liquids today advance diet as tolerated. She may use Zofran as needed. AVS for vomiting nausea provided. Clinical Impression Final diagnoses: Nausea and vomiting, intractability of vomiting not specified, unspecified vomiting type documented in this encounter Plan of Treatment Scheduled Orders Name Type Priority Associated Diagnoses Orde r Schedule POCT iStat Chem8+ (BMP with H&H) Point of Care Testing Routine Nausea and vomiting, intractability of vomiting not specified, unspecified vomiting type Ordered: 01/15/2020 documented as of this encounter Procedures Procedure Name Priority Date/Time Associated Diagnosis Comments POCT WBC Routine 01/15/2020 12:55 PM EDT Nausea and vomiting, intractability of vomiting not specified, unspecified vomiting type POCT ISTAT CHEM8+ (BMP WITH H&H) Routine 01/15/2020 12:52 PM EDT documented in this encounter Results * POCT WBC (01/15/2020 12:55 PM EDT) WBC 7.9 3.9 - 11.0 K/uL [facility] N[facility] Other 01/15/2020 12:5 5 PM EDT Brian Pugh DO POINT OF CARE TEST O RDERABLES [facility] [address] [place] [address], [facility] * (ABNORMAL) POCT iStat Chem8+ (BMP with H&H) (01/15/2020 12:52 PM EDT) TOTAL CO2 22(L) 24 - 29 mmol/L [facility] IONIZED CALCIUM 4.70 4.5 - 5.3 mmol/L [facility] BUN 13 8 - 26 mg/dL [facility] SODIUM 142 138 - 146 mmol/L [facility] POTASSIUM 3.5 3.5 - 4.9 mmol/L [facility] CHLORIDE 104 98 - 109 mmol/L [facility] ISTAT WB GLUCOSE 70 70 - 105 mg/dl [facility] Creatinine 0.60 0.60 - 1.30 mg/dl [facility] HCT (ISTAT) 45.0 38.0 - 46.0 % [facility] HGB 15.3 12.0 - 15.6 gm/dl [facility] 01/15/2020 12:5 2 PM EDT 01/15/2020 12:54 PM EDT Unknown Unknown MD POINT OF CARE TEST O RDERABLES [facility] [address] [place] [address], [facility] documented in this encounter Visit Diagnoses Diagnosis Nausea and vomiting, intractability of vomiting not specified, unspecified vomiting type- Primary documented in this encounter Administered Medications Inactive Administered Medications - up to 3 most recent administrations Medication Order MAR Action Action Date Dose Rate Site ondansetron (PF) (ZOFRAN) injection 4 mg 4 mg, Intravenous, Once, On 01/15/20 at 1230, For 1 dose Given 01/15/2020 12:47 PM EDT 4 mg sodium chloride 0.9% bolus 1,000 mL 1,000 mL, Intravenous, Administer over 30 Minutes, at 2,000 mL/hr, Once, On 01/15/20 at 1230, For 1 dose New Bag 01/15/2020 12:47 PM EDT 1,000 mL 2000 mL/hr documented in this encounter Additional Health Concerns Infection Onset Date Last Indicated Resolved Time CoV-Risk 01/11/2020 01/11/2020 01/25/2020 1:23 AM EST documented as of this encounter Care Teams Medical Instructor Relationship Specialty Start Date End Date Belén Bravo MD [address] [id number] [email or web address] PCP - General Family Medicine 11/01/19 06/08/23 Hayley Pandey MD [address] [place] [address] [email or web address] Historical LMR Provider 01/15/19 03/30/21 Chloé Sánchez CNM [address] [place] [address] [email or web address] Historical LMR Provider 01/15/19 03/30/21 Dayana Galindo MD [address] [place] [address] [email or web address] Historical LMR Provider 01/15/19 03/30/21 [address]iz [place] [address] [email or web address] Historical LMR Provider 01/15/19 03/30/21 Cain Morales MD [address] [place] [address] Historical LMR Provider 01/15/19 2 Ktae Leal MD [address] [place] [address] [email or web address] Historical LMR Provider 01/15/19 03/30/21 Tari Willams 15 [facility] [address] [place] [address] Historical LMR Provider 01/15/19 2 [address]thia [address] [place] [address] Historical LMR Provider 01/15/19 03/30/21 Palak Culver CNM 15 [facility] 102 [place] [address] Historical LMR Provider 01/15/19 03/30/21 Damaso Carranza MD 15 [facility] 102 [place] [address] Historical LMR Provider 01/15/19 Ian Youssef MD [address] [place] [address] Historical LMR Provider 01/15/19 2 Jc Jacobs MD [address] [place] [address] [email or web address] Historical LMR Provider 01/15/19 03/30/[address] Saleem [address], [place] [address] Historical LMR Provider 01/15/19 03/30/21 documented as of this encounter Additional Source Comments The information contained in this document represents components of the legal health record. It is not the complete legal health record.[facility]
--- OUTSIDE RECORDS SUMMARY | 2023-11-16 12:19 | XMS_ITS | Encounter Summary ---
Author Organization [facility] Address [phone] [facility] [place] [address] Care Team Providers Care Assistant Press Operator Offset Name Role Phone Hayley Pandey MD Unavailable + [phone] Chloé Sánchez CNM Unavailable [phone] Dayana Galindo MD Unavailable Ruiz Lewis DO Unavailable Xiomara Cain Morales MD Unavailable [phone] Kate Leal MD Unavailable [phone] Tari Willams Unavailable [phone] Cynthia Allen CNM Unavailable [phone] Palak Culver CNM Unavailable [phone] Damaso Carranza MD Unavailable [phone] Ian Youssef MD Unavailable [phone] Jc Jacobs MD Unavailable [phone] Eliz Saleem CNM Unavailable [phone] Belén Bravo MD Primary Care Provider Reason for Visit * Reason Onset Date Comments Depression 12/28/2019 Encounter Details Date Type Department Care Team (Late st Contact Info) Description 12/28/[address] [address] [place] Elizalde LPN [email or web address] Social History Tobacco Use Types Packs/Day Years [...] Progress Notes * Belén Bravo MD - 12/28/2019 11:43 AM EDT Noted. * [place] Elizalde LPN - 12/28/2019 9:47 AM EDT Patient left message stating she does not think Wellbutrin dosing is effective any longer - she is having a lot of mood swings, irritable and rage - She will have a telephone visit with Dr. Bravo to discuss documented in this encounter Plan of Treatment Not on file documented as of this encounter Visit Diagnoses Not on filedocumented in this encounter Care Teams Assistant Press Operator Offset Relationship Specialty Start Date End Date Belén Bravo MD [address] [place] [address] [email or web address] PCP - General Family Medicine 11/01/19 06/08/23 Hayley Pandey MD [address] [place] [address] Historical LMR Provider 01/15/19 03/30/21 Chloé Sánchez CNM 15 [facility] 102 [place] [address] [email or web address] Historical LMR Provider 01/15/19 03/30/21 Dayana Galindo MD 15 [facility] 102 [place] [address] [email or web address] Historical LMR Provider 01/15/19 03/30/21 Ruiz Lewis DO [facility] [place] [address] [email or web address] Historical LMR Provider 01/15/19 03/30/21 Cain Morales MD [address] [place] [address] Historical LMR Provider 01/15/19 2 Kate Leal MD [address] [address] [email or web address] Historical LMR Provider 01/15/19 03/30/21 Tari Willams 15 [facility] 201 [place] [address] Historical LMR Provider 01/15/19 2 Cynthia Allen CNM [address] [place], [place] [address], [place] [address] [email or web address] Historical LMR Provider 01/15/19 03/30/21 Palak Culver CNM [address] [address] Historical LMR Provider 01/15/19 03/30/21 Damaso Carranza MD [address] [address] Historical LMR Provider 01/15/19 Ian Youssef MD [address] [place] [address] Historical LMR Provider 01/15/19 2 Jc Jacobs MD [address] [place] [address] [email or web address] Historical LMR Provider 01/15/19 03/30/21 Eliz Saleem CNM [email or web address] [facility], [place] [address] [email or web address] Historical LMR Provider 01/15/19 03/30/21 documented as of this encounter Additional Source Comments The information contained in this document represents components of the legal health record. It is not the complete legal health record.[facility]
--- OUTSIDE RECORDS SUMMARY | 2023-11-16 12:19 | XMS_ITS | Encounter Summary ---
Author Organization [facility] Address [phone] [place] [address] Care Team Providers Care Industrial Engineering Manager Name Role Phone Hayley Pandey MD Unavailable + [phone] Chloé Sánchez CNM Unavailable [phone] Dayana Galindo MD Unavailable Ruiz Lewis DO Unavailable [email or web address] Cain Morales MD Unavailable [phone] Kate Leal MD Unavailable [phone] Tari Willams Unavailable [phone] Cynthia Allen CNM Unavailable [phone] Palak Culver CNM Unavailable [phone] Damaso Carranza MD Unavailable [phone] Ian Youssef MD Unavailable [phone] Jc Jacobs MD Unavailable [phone] Eliz Saleem CNM Unavailable Belén Bravo MD Primary Care Provider Reason for Visit * Reason Onset Date Comments question 01/20/2020 Encounter Details Date Type Department Care Team (Late st Contact Info) Description 01/20/2020 Telephone [facility] Express [facility]am[facility] [place] [address] [address] Racquel Andres RN [address] [place] [address] [email or web address] question Social History Tobacco Use Types Packs/Day Years [...] as of this encounter Progress Notes * Racquel Andres RN - 01/20/2020 9:47 AM EDT Pt calls stating she has had some progressive bruising in the area IV access from her 01/14 visit and is wondering if she should be seen. Discussion of plan for pt to return to clinic for re-evaluation later today. Pt states she isn't sure when her schedule will allow it but will come in later. documented in this encounter Plan of Treatment Not on file documented as of this encounter Visit Diagnoses Not on filedocumented in this encounter Additional Health Concerns Infection Onset Date Last Indicated Resolved Time CoV-Risk 01/11/2020 01/11/2020 01/25/2020 1:23 AM EST documented as of this encounter Care Teams Industrial Engineering Manager Relationship Specialty Start Date End Date Belén Bravo MD [address] [place] [address] [email or web address] PCP - General Family Medicine 11/01/19 06/08/23 Hayley Pandey MD [address] [place] [address] Historical LMR Provider 01/15/19 03/30/21 Chloé Sánchez CNM 15 [facility] 102 [place] [address] [email or web address] Historical LMR Provider 01/15/19 03/30/21 Dayana Galindo MD 15 [facility] 102 [place] [address] [email or web address] Historical LMR Provider 01/15/19 03/30/21 Ruiz Lewis DO [address] [place] [address] [email or web address] Historical LMR Provider 01/15/19 03/30/21 Cain Morales MD [address] [place] [address] [address] [place] [address] Historical LMR Provider 01/15/19 2 Kate Leal MD 15 [facility] 102 [place] [address] [email or web address] Historical LMR Provider 01/15/19 03/30/[address] 15 [facility] 201 [place] [address] Historical LMR Provider 01/15/19 2 Cynthia Allen CNM [address] [place] [address], [facility] [place] [address] [email or web address] Historical LMR Provider 01/15/19 03/30/21 Palak Culver CNM [address] [address] Historical LMR Provider 01/15/19 03/30/21 Damaso Carranza MD [address] [address] Historical LMR Provider 01/15/19 Ian Youssef MD [address] [place] [address] Historical LMR Provider 01/15/19 2 Jc Jacobs MD [address] [place] [address] [email or web address] Historical LMR Provider 01/15/19 03/30/21 Eliz Saleem CNM [employer] [facility], [place] [address] Historical LMR Provider 01/15/19 03/30/21 documented as of this encounter Additional Source Comments The information contained in this document represents components of the legal health record. It is not the complete legal health record.[facility]
--- OUTSIDE RECORDS SUMMARY | 2023-11-16 12:20 | XMS_ITS | Encounter Summary ---
Author Organization [facility] Address [phone] Formerly [facility] [place] [address] Care Team Providers Care Curatorial Assistant Name Role Phone Jennifer Bridges NP Primary Care Provider Hayley Pandey MD Unavailable + [phone] Chloé Sánchez CNM Unavailable [phone] Dayana Galindo MD Unavailable Ruiz Lewis DO Unavailable Xiomara Cain Morales MD Unavailable Kate Leal MD Unavailable [phone] Jennifer Bridges NP Unavailable +[phone] Tari Willams Unavailable [phone] Kody Ayon MD Unavailable [phone] Cynthia Allen CNM Unavailable [phone] Tari Urias DO Unavailable [phone] Palak Culver CNM Unavailable [phone] Damaso Carranza MD Unavailable Ian Youssef MD Unavailable [phone] Jc Jacobs MD Unavailable Eliz Saleem [facility] Unavailable Encounter Details Date Type Department Care Team (Late st Contact Info) Description 05/17/2019 1:00 PM EST Infusion [facility] [address] [place] [address] [place] [address] Marce Cole MD [address] [place] [address] [email or web address], RN [address] [place] [address] [email or web address] Social History Tobacco Use Types Packs/Day Years [...] as of this encounter Progress Notes * Nilda Gamez RN - 05/17/2019 1:00 PM EST Clinic visit for staple removal. Marylou is POD 12 s/p EXPLORATORY LAPAROTOMY, TOTAL ABDOMINAL RADICALHYSTERECTOMY, BILATERAL SALPINGECTOMY, UPPER VAGINECTOMY LYMPHADENECTOMY PELVIC by Dr. Cole. The wound demonstrates no evidence of infection with adequate tensile strength at the wound margins at this time to warrant staple removal. Gilles were removedindividually using a staple remover. Re-examination of the wound following the procedure reveals that the edges are well approximated. No signs or symptoms of infection were noted. Wound care precautions were reviewed. Patient is eating and drinking adequately, moving bowels and voiding without difficulty. documented in this encounter Plan of Treatment Not on file documented as of this encounter Visit Diagnoses Not on filedocumented in this encounter Care Teams Curatorial Assistant Relationship Specialty Start Date End Date Jennifer Bridges NP 60 [facility] 3 [place] [id number] [email or web address] PCP - General 12/31/18 Hayley Pandey MD [address] [address] [email or web address] Historical LMR Provider 01/15/19 03/30/21 Chloé Sánchez CNM [address] [place] [address] [email or web address] Historical LMR Provider 01/15/19 03/30/21 Dayana Galindo MD [address] [place] [address] [email or web address] Historical LMR Provider 01/15/19 03/30/21 Ruiz Lewis DO [address] [place] [address] [email or web address] Historical LMR Provider 01/15/19 03/30/21 Cain Morales MD [address] [place] [address] Historical LMR Provider 01/15/19 2 Kate Leal MD [address] [place] [address] [email or web address] Historical LMR Provider 01/15/19 03/30/21 Jennifer Bridges NP 60 [facility] [address] [place] [address] [email or web address] Historical LMR Provider 01/15/19 10/31/19 Tari Willams 15 [facility] 201 [place] [address] Historical LMR Provider 01/15/19 2 Kody Ayon MD 60 [facility] 300 [place] [address] Historical LMR Provider 01/15/19 Cynthia Allen CNM [facility], [facility] [place] [address] Historical LMR Provider 01/15/19 03/30/21 Tari Urias DO 10 [facility] 200 [place] [address] Historical LMR Provider 01/15/19 10/31/19 Palak Culver CNM 15 [facility] 102 [place] [address] Historical LMR Provider 01/15/19 03/30/21 Damaso Carranza MD 15 [facility] 102 [place] [address] [email or web address] Historical LMR Provider 01/15/19 Ian Youssef MD [facility] Jordan Haynes [address] [address] Historical LMR Provider 01/15/19 2 Jc Jacobs MD [address] [place] [address] [email or web address] Historical LMR Provider 01/15/19 03/30/21 El[place] [address] [email or web address] Historical LMR Provider 01/15/19 03/30/21 documented as of this encounter Additional Source Comments The information contained in this document represents components of the legal health record. It is not the complete legal health record.[facility]
--- OUTSIDE RECORDS SUMMARY | 2023-11-16 12:20 | XMS_ITS | Encounter Summary ---
Author Organization [facility] Address [phone] [facility] [place] [address] Care Team Providers Care Weaving Professor Name Role Phone Jennifer Bridges NP Primary Care Provider Hayley Pandey MD Unavailable + [phone] Chloé Sánchez CNM Unavailable [phone] Dayana Galindo MD Unavailable Ruiz Lewis DO Unavailable Xiomara Cain Morales MD Unavailable Kate Leal MD Unavailable [phone] Jennifer Bridges NP Unavailable [phone] Tari Willams Unavailable [phone] Kody Ayon MD Unavailable [phone] Cynthia Allen CNM Unavailable [phone] Tari Urias DO Unavailable [phone] Palak Culver CNM Unavailable [phone] Damaso Carranza MD Unavailable Ian Youssef MD Unavailable [phone] Jc Jacobs MD Unavailable Eliz Saleem [facility] Unavailable Reason for Visit * Reason Onset Date Comments Results 10/25/2019 rheumatic labs/d ecrease neurotransmitters Encounter Details Date Type Department Care Team (Late st Contact Info) Description 10/25/[address] 2 [place] [address] Paz Gandhi RN 36 [place] [address] [email or web address] Results (rheumatic labs/decrease neurotransmitters) Social History Tobacco Use Types Packs/Day Years [...] Progress Notes * Paz Gandhi LPN - 10/25/2019 10:35 AM EDT Sent gateway message * Paz Gandhi LPN - 10/25/2019 10:33 AM EDT ----- Message from Belén Bravo MD sent at 10/24/2019 6:40 AM EDT ----- Testing for rheumatic problems was negative. 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 Sometimes the only symptoms of insufficent neurotransmitters are fatigue and can have hair loss. Not sure about rash. How is it doing? Can send to derm if still a concern. My recommendation would be to go up on dose of wellbutrin from 150mg to 300mg. Will take a few weeks to see how it is doing. IF she is willing, can have f/u visit (can be televisit) in 4 weeks to seehow sx are doing. documented in this encounter Plan of Treatment Not on file documented as of this encounter Visit Diagnoses Not on filedocumented in this encounter Care Teams Weaving Professor Relationship Specialty Start Date End Date Jennifer Bridges NP [address] [place] [address] 3 [place] [address] [email or web address] PCP - General 12/31/18 Hayley Pandey MD [address] [place] [address] Historical LMR Provider 01/15/19 03/30/21 Chloé Sánchez CNM [address] [place] [address] Historical LMR Provider 01/15/19 03/30/21 Dayana Galindo MD [address] [place] [address] Historical LMR Provider 01/15/19 03/30/21 Ruiz Lewis DO [address] [place] [address] [email or web address] Historical LMR Provider 01/15/19 03/30/21 Cain Morales MD [address] [place] [address] [id number] Historical LMR Provider 01/15/19 2 Kate Leal MD 15 [facility] 102 [place] [address] [email or web address] Historical LMR Provider 01/15/19 03/30/21 Jennifer Bridges NP 60 [facility] 3 [place] [address] [email or web address] Historical LMR Provider 01/15/19 10/31/19 Tari Willams 15 [facility] 201 [place] [address] Historical LMR Provider 01/15/19 2 Kody Ayon MD 60 [facility] 300 [place] [address] Historical LMR Provider 01/15/19 Cynthia Allen CNM [address] [place] [address], [facility] [place] [address] Historical LMR Provider 01/15/19 03/30/21 Tari Urias DO 10 [facility] 200 [place] [address] Historical LMR Provider 01/15/19 10/31/19 Palak Culver CNM 15 [facility] 102 [place] [address] Historical LMR Provider 01/15/19 03/30/21 Damaso Carranza MD 15 [facility] 102 [place] [address] Historical LMR Provider 01/15/19 Ian Youssef MD [address] [place] [address] Historical LMR Provider 01/15/19 2 Jc Jacobs MD [address] [place] [address] [email or web address] Historical LMR Provider 01/15/19 03/30/21 Eliz Saleem CNM [facility], [facility] [place] [address] [email or web address] Historical LMR Provider 01/15/19 03/30/21 documented as of this encounter Additional Source Comments The information contained in this document represents components of the legal health record. It is not the complete legal health record.[facility]
--- OUTSIDE RECORDS SUMMARY | 2023-11-16 12:20 | XMS_ITS | Encounter Summary ---
Author Organization [facility] Address [phone] Formerly [facility] [place] [address] Care Team Providers Care Optical Engineer Name Role Phone Hayley Pandey MD Unavailable + [phone] Chloé Sánchez CNM Unavailable [phone] Dayana Galindo MD Unavailable Ruiz Lewis DO Unavailable Xiomara Cain Morales MD Unavailable [phone] Kate Leal MD Unavailable [phone] Tari Willams Unavailable [phone] Cynthia Allen CNM Unavailable [phone] Palak Culver CNM Unavailable [phone] Damaso Carranza MD Unavailable [phone] Ian Youssef MD Unavailable Jc Jacobs MD Unavailable [phone] Eliz Saleem CNM Unavailable [phone] Belén Bravo MD Primary Care Provider Encounter Details Date Type Department Care Team (Late st Contact Info) Description 11/10/[address] [address] Clare Elizalde LPN [email or web address] Social History Tobacco Use Types Packs/Day [...] Progress Notes * Clare Elizalde LPN - 11/10/2019 8:31 AM EDT Calls with concerns of mastitis - Right Breast - she will see Dr. Bravo this am. documented in this encounter Plan of Treatment Not on file documented as of this encounter Visit Diagnoses Not on filedocumented in this encounter Care Teams Optical Engineer Relationship Specialty Start Date End Date Beéln Bravo MD [address] [place] [address] [email or web address] PCP - General Family Medicine 11/01/19 06/08/23 Hayley Pandey MD [address] [place] [address] Historical LMR Provider 01/15/19 03/30/21 Chloé Sánchez CNM [address] [place] [address] Historical LMR Provider 01/15/19 03/30/21 Dayana Galindo MD [address] [place] [address] [email or web address] Historical LMR Provider 01/15/19 03/30/21 Ruiz Lewis DO [address] [place] [address] [email or web address] Historical LMR Provider 01/15/19 03/30/21 Cain Morales MD [address] [place] [address] 401 [place] [address] Historical LMR Provider 01/15/19 2 Kate Leal MD 15 [facility] 102 [place] [address] [email or web address] Historical LMR Provider 01/15/19 03/30/21 Tari Willams 15 [facility] 201 [place] [address] Historical LMR Provider 01/15/19 2 Cynthia Allen CNM 67 [facility], [facility] [place] [address] [email or web address] Historical LMR Provider 01/15/19 03/30/21 Palak Culver CNM 15 [facility] 102 [place] [address] [email or web address] Historical LMR Provider 01/15/19 03/30/21 Damaso Carranza MD 15 [facility] 102 [place] [address] [email or web address] Historical LMR Provider 01/15/19 Ian Youssef MD [address] [place], [place] [address]gigiv[address]an [address] [address] Historical LMR Provider 01/15/19 2 Jc Jacobs MD [address] [place] [address] [email or web address] Historical LMR Provider 01/15/19 03/30/21 Eliz Saleem [place] [address] [email or web address] Historical LMR Provider 01/15/19 03/30/21 documented as of this encounter Additional Source Comments The information contained in this document represents components of the legal health record. It is not the complete legal health record.[facility]
--- OUTSIDE RECORDS SUMMARY | 2023-11-16 12:20 | XMS_ITS | Encounter Summary ---
Author Organization [facility] Address [phone] [facility] for; to ([place]) [place] [address] Care Team Providers Care Professor Of Marketing Name Role Phone Jennifer Bridges NP Primary Care Provider Hayley Pandey MD Unavailable + [phone] Chloé Sánchez CNM Unavailable [phone] Dayana Galindo MD Unavailable Ruiz Lewis DO Unavailable Xiomara Cain Morales MD Unavailable Kate Leal MD Unavailable [phone] Jennifer Bridges NP Unavailable [phone] Tari Willams Unavailable [phone] Kody Ayon MD Unavailable [phone] Cynthia Allen CNM Unavailable [phone] Tari Urias DO Unavailable [phone] Palak Culver CNM Unavailable [phone] Damaso Carranza MD Unavailable Ian Youssef MD Unavailable [phone] Jc Jacobs MD Unavailable Eliz Saleem [facility] Unavailable [phone] Reason for Visit * Reason Comments Breast Pain left side swollen pa inful, fever 101.5 Encounter Details Date Type Department Care Team (Late st Contact Info) Description 06/04/2019 11:20 AM EDT Office Visit [facility] Rupal Burkett [address] [place] [address] Unknown, Unknown, Jennifer Walls PA-C [address] [place] [address] [email or web address] Mastitis (Primary Dx) Social History Tobacco Use Types [...] Reading Time Taken Comments Blood Pressure 112/68 06/04/2019 11:28 AM EDT Pulse 90 06/04/2019 11:28 AM EDT Temperature 36.9 ??C (98.4 ??F) 06/04/2019 11:28 AM E DT Respiratory Rate 16 06/04/2019 11:28 AM EDT Oxygen Saturation 100% 06/04/2019 11:28 AM EDT Inhaled Oxygen Concentration - - Weight - - Height - - Body Mass Index - - documented in this encounter Patient Instructions * Patient Instructions* Jennifer Martinez PA-C - 06/04/2019 11:20 AM EDT Images from the original note were not included. Continue taking ibuprofen and Tylenol as needed for pain and fever. Begin clindamycin 450 mg 3 times a day for 10 days. Even given 2 prescriptions, one for clindamycin 150 mg capsules, and 1 for clindamycin 300 mg capsules. You will have to take 1 capsule from each bottle to get the appropriate dose each time. Please follow-up with your PCP for any persistent symptoms. If her symptoms worsen or he develop new concerning symptoms, please go to the emergency room for further evaluation and treatment. Mastitis: Care Instructions Your Care Instructions Mastitis is an inflammation of the breast. It occurs most often in women who are , butit can affect any woman. Mastitis can be caused by poor milk flow from the breast. When milk buildsup in a breast, it leaks into the nearby breast tissue. Infection can also develop when the nipplesbecome cracked or irritated. The tissue can then become infected with bacteria. Antibiotics can usually cure mastitis. For women who are nursing, continued (or pumping) can help. If mastitis is not treated, a pocket of pus may form in the breast and need to be drained. Follow-up care is a dejesus part of your treatment and safety. Be sure to make and go to all appointments, and call your doctor if you are having problems. It's also a good idea to know your test resultsand keep a list of the medicines you take. How can you care for yourself at home? ?? If your doctor prescribed antibiotics, take them as directed. Do not stop taking them just because you feel better. You need to take the full course of antibiotics. ?? If you are , continue or pumping breast milk. It is important to empty your breasts regularly, every 2 to 3 hours while you are awake. These tips may help: ? Before , place a warm, wet washcloth over your breast for about 15 minutes. Try thisat least 3 times a day. This increases milk flow in the breast. Massaging the affected breast may also increase milk flow. ? Breastfeed on both sides. Try to start with your healthy breast first. Then, after your milk is flowing, breastfeed from the affected breast until it feels soft. You should empty this breast completely. Then switch back to the healthy breast and breastfeed until your baby has finished. ? Pump or hand-express a small amount of breast milk before if your breasts are too full with milk. This will make your breasts less full and may make it easier for your baby to latch on to your breast. ? Pump or express milk from the affected breast if it hurts too much to breastfeed. ?? Take an frrx-khc-ohzzbmn pain medicine, such as acetaminophen (Tylenol) or ibuprofen (Advil, Motrin) to relieve pain and fever. Read and follow all instructions on the label. ?? Do not take two or more pain medicines at the same time unless the doctor told you to. Many painmedicines have acetaminophen, which is Tylenol. Too much acetaminophen (Tylenol) can be harmful. ?? Rest as much as possible. ?? Drink extra fluids. ?? If pus is draining from your infected breast, wash the nipple gently and let it air-dry before you put your bra back on. A disposable breast pad placed in the bra cup may absorb the pus. ?? Sometimes, a blocked nipple pore, called a milk blister (or bleb) happens. This causes milk to back up in the breast. It can cause mastitis, so it's important to treat this if it happens. A milk blister is often a white dot on your nipple that can be painful. If a milk blister is causing you pain, it may help to place a warm, wet washcloth over the blister before or pumping. If this doesn't clear the blockage, your doctor can open the blister using a sterile needle. When should you call for help? Call your doctor now or seek immediate medical care if: ? You have worse symptoms of a breast infection, such as: ? Increased pain, swelling, redness, or warmth around a breast. ? Red streaks leading from a breast. ? Pus draining from a breast. ? A fever. ??Watch closely for changes in your health, and be sure to contact your doctor if: ? You do not get better as expected. Where can you learn more? Please login or enroll in??[facility] [place]: [email or web address] Select the Resources icon from the Header & then select??Search [employer] Enter Y207 in the search box to learn more about 'Mastitis: Care Instructions.' Current as of: August 18, 2018?Content Version: 12.4 ?? [id number] [email or web address]. Care instructions adapted under license by your healthcare professional. If you have questions about a medical condition or this instruction, always ask your healthcare professional. [email or web address] disclaims any warranty or liability for your use of this information. documented in this encounter Progress Notes * Jennifer Martinez PA-C - 06/04/2019 11:20 AM EDT [facility] Express Care Note [address] [place] [address] Dept Phone #: [phone] Dept Fax #: [phone] Chief Complaint Chief Complaint Patient presents with ??? Breast Pain left side swollen painful, fever 101.5 History of Present Illness Patient is a 28-year-old female, currently breast-feeding, develops presents with left-sided breastpain that began early this morning. She states that yesterday she began to feel the sensation she was having some mild discomfort and decreased milk production from her left breast, trying to increase her pumping from that breast to encourage milk flow. During the night she awoke with some discomfort to the left breast, and this morning when she tried to breast- feed her infant for the first time,as she said it was even more painful. She took her temperature, had a temperature of 101.5 at home,which did respond well to Motrin as she is afebrile here. She is denying any other systemic symptoms, she is eating and drinking well. She has not had any drainage from the breast other than occasional breastmilk. Visit triage report and nursing notes reviewed as documented with the following changes noted None Problem List and Past Medical History Patient Active Problem List Diagnosis ??? Partial third nerve palsy ??? Arnold-Chiari malformation ??? Post-operative state ??? Cervical cancer, FIGO stage IB1 Past Medical History: Diagnosis Date ??? Adenocarcinoma in situ of cervix ??? Anemia ??? Anxiety and depression ??? Asthma young child ??? Cancer ??? Eye muscle paralysis right eye partial ??? Hypertensive disorder with pregnancies; resolved after births Past Surgical History Past Surgical History: Procedure Laterality Date ??? CERVIX SURGERY cold knife ??? CRANIECTOMY SUBOCCIPITAL FOR EXPLORATION / DECOMPRESSION CRANIAL NERVES ??? HYSTERECTOMY ??? UNCODED SURGICAL HISTORY Asthma as child, allergies now ??? UNCODED SURGICAL HISTORY Polydypsia ??? UNCODED SURGICAL HISTORY Cervical Dysplasia, mild; Colposcopy, without biopsy; 10/14/2013; 04/08/2016 - @ [facility] ??? UNCODED SURGICAL HISTORY Abdominal pain ??? UNCODED SURGICAL HISTORY Blood glucose abnormal finding ??? UNCODED SURGICAL HISTORY Pre-eclampsia ??? UNCODED SURGICAL HISTORY Cervicitis/ endocervicitis ??? UNCODED SURGICAL HISTORY Vaginal candidiasis ??? UNCODED SURGICAL HISTORY Arnold-chiari decompression; 2006 ??? UNCODED SURGICAL HISTORY ; ; Pre-echlampsia w/SF on Mag, pre term labor ??? UNCODED SURGICAL HISTORY Malaise/ fatigue ??? UNCODED SURGICAL HISTORY ; ; 10/06/2018 ??? UNCODED SURGICAL HISTORY HPV ??? UNCODED SURGICAL HISTORY 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; 2005 ??? UNCODED SURGICAL HISTORY Polyuria Medications Prior to Admission medications Medication Sig acetaminophen (TYLENOL) 325 mg tablet 975 mg, Oral, Every 6 hours buPROPion (WELLBUTRIN XL) 150 MG ER 24 hr tablet 150 mg, Oral, Daily, For depression ibuprofen (ADVIL,MOTRIN) 600 MG tablet 600 mg, Oral, Every 6 hours PRN 95-iron cec-nlzcs-gui ( + DHA) 28 mg iron-800 mcg-200 mg Cmpk No dose, route, or frequency recorded. clindamycin (CLEOCIN) 150 MG capsule 150 mg, Oral, 3 times daily clindamycin (CLEOCIN) 300 MG capsule 300 mg, Oral, 2 times daily diphenhydrAMINE (BENADRYL) 25 mg capsule 25 mg, Oral, Every 6 hours PRN Patient not taking: Reported on 06/04/2019 enoxaparin (LOVENOX) 40 mg/0.4 mL Syrg subcutaneous syringe 40 mg, Subcutaneous, Daily Patient not taking: Reported on 06/04/2019 norethindrone (MICRONOR) 0.35 mg tablet 1 tablet, Oral, Daily, Micronor 1 tab po QD Patient not taking: Reported on 06/04/2019 ondansetron (ZOFRAN-ODT) 8 MG disintegrating tablet 8 mg, Oral, Every 8 hours PRN Patient not taking: Reported on 06/04/2019 oxyCODONE 5 MG immediate release tablet 5-10 mg, Oral, Every 4 hours PRN, Partial fill ok Patient not taking: Reported on 06/04/2019 Allergies Allergies Allergen Reactions ??? Heparin Analogues Bleeding ??? Cantaloupe Mouth and throat itching ??? Cephalexin Monohydrate ??? Other ragweed ??? Paroxetine Hcl Nausea Only ??? Penicillin ??? Penicillins Rash ??? Sertraline Nausea Only ??? Sulfamethoxazole ??? Trimethoprim ??? Valacyclovir Hcl Social and Family History Social History Tobacco Use ??? Smoking status: Never Smoker ??? Smokeless tobacco: Never Used Substance Use Topics ??? Alcohol use: Not Currently Social History Substance and Sexual Activity Drug Use Yes ??? Types: Marijuana Comment: on weekends, last [...] history noncontributory. ROS Review of Systems Constitutional: Positive for fever. Negative for chills. HENT: Negative. Negative for congestion, nosebleeds and sore throat. Eyes: Negative. Negative for discharge and itching. Respiratory: Negative. Negative for shortness of breath and wheezing. Cardiovascular: Negative. Negative for chest pain and palpitations. Gastrointestinal: Negative. Negative for abdominal pain, diarrhea, nausea and vomiting. Genitourinary: Negative. Negative for dysuria and urgency. Pain to left breast Musculoskeletal: Negative. Negative for arthralgias and myalgias. Skin: Negative. Negative for rash and wound. Neurological: Negative. Negative for syncope and light-headedness. Psychiatric/Behavioral: Negative. Negative for agitation and confusion. All other systems reviewed and are negative. All other systems have been reviewed with the patient and are negative. Physical Exam Vital Signs: BP 112/68 Pulse 90 Temp 36.9 ??C (98.4 ??F) (Temporal) Resp 16 SpO2 100% Physical Exam Vitals signs and nursing note reviewed. Constitutional: General: She is not in acute distress. Appearance: Normal appearance. She is well-developed and normal weight. She is not ill-appearing, toxic-appearing or diaphoretic. HENT: Head: Normocephalic and atraumatic. Nose: Nose normal. Mouth/Throat: Mouth: Mucous membranes are moist. Pharynx: Oropharynx is clear. Eyes: General: No scleral icterus. Right eye: No discharge. Left eye: No discharge. Conjunctiva/sclera: Conjunctivae normal. Pupils: Pupils are equal, round, and reactive to light. Neck: Musculoskeletal: Normal range of motion and neck supple. Cardiovascular: Rate and Rhythm: Normal rate and regular rhythm. Pulses: Normal pulses. Pulmonary: Effort: Pulmonary effort is normal. No respiratory distress. Breath sounds: No stridor. Genitourinary: Comments: Patient has tenderness over the medial/inferior aspect of the left breast, without notable drainage, erythema or exudates. Musculoskeletal: Normal range of motion. General: No tenderness. Skin: General: Skin is warm and dry. Capillary Refill: Capillary refill takes less than 2 seconds. Findings: No erythema or rash. Neurological: Mental Status: She is alert and oriented to person, place, and time. Motor: No abnormal muscle tone. Deep Tendon Reflexes: Reflexes normal. Psychiatric: Mood and Affect: Mood normal. Behavior: Behavior normal. Thought Content: Thought content normal. Judgment: Judgment normal. Laboratory/Radiology Testing No results found for this visit on 06/04/19. Ct Abdomen/pelvis Result Date: 05/26/2019 CT OF THE ABDOMEN AND PELVIS CLINICAL INDICATION: *Abdominal infection suspected s/p hyst history of adenocarcinoma of the cervix. COMPARISON: None. PROCEDURE: Contiguous axial tomographic sections were obtained from the dome of the diaphragm through the ischial tuberosities following the administration of 80 mL of Omnipaque 350 IV and no enteric contrast. Coronal and sagittal reformats were thenperformed. Automated exposure control was utilized for dose reduction. FINDINGS: Abdomen: The visualized lung bases are clear. The liver, gallbladder, spleen, adrenal glands, kidneys and pancreas demonstrate no acute abnormalities. No aneurysmal dilatation of the abdominal aorta. There are some small but no enlarged lymph nodes in the mesenteric or retroperitoneal region by CT size criteria. No free air or significant free fluid in the abdomen. Pelvis: Patient is status post hysterectomy. Thereis a 5.5 cm x 5.3 cm soft tissue density masslike structure in the left hemipelvis is nonspecific and may represent residual mass or may be an adnexal or residual hematoma. Comparison with prior CT is recommended. There are surgical clips in the lower pelvis. There is a small elongated fluid collection in the right aspect of the hysterectomy bed measuring 1.1 cm x 4 cm on series 3 image 63. Thereis a small focus of fluid measuring 1.0 cm x 1.2 cm anteriorly in the right hemipelvis. There is a small fluid containing structure measuring 2.7 cm x 1.2 cm in the left anterior hemipelvis nonspecific. This may represent a fluid collection versus left ovarian cyst as the patient states there are ovaries remain. No internal air in these collections. There is some wall thickening and adjacent loops of small bowel in the pelvis likely reactive. No distended loops of bowel present to suggest bowelobstruction. There is air within a nondistended appendix. There is some subcutaneous fat stranding from midline incision within the lower abdominal and pelvic wall. No acute osseous abnormalities identified. Patient is status post hysterectomy. There is a 5.5 cm x 5.3 cm soft tissue density homogeneous masslike structure in the left hemipelvis of uncertain etiology. This may represent residual mass or a hematoma. Correlate with surgical procedure in comparison to prior CT would be helpful. Small amountof fluid in the pelvis with some small fluid collections that may resenting postsurgical collections. No internal air in these collections to suggest a definite abscess however small early infected collections cannot be excluded. Continued surveillance recommended. These areas of fluid in the left adnexa may resenting ovarian cyst as patient states ovaries remain. There is some bowel wall thickening in the pelvis likely representing reactive inflammation. No bowel obstruction. No free air identified. Prelim report faxed and phoned to ER by [facility] time of exam Xr Abdomen Result Date: 05/06/2019 XR ABDOMEN 1 VIEW Single AP view of the abdomen COMPARISON: CT PET ABDOMEN/PELVIS WITH CONTRAST There is an enteric tube terminating below the diaphragm, with distal tip in the distal stomach. There is a partially imaged epidural catheter. Nonobstructive bowel gas pattern. ATTESTATION: I, Dr. Amie Flynn as teaching physician, have reviewed the images for this case and if necessary editedthe report originally created by Dr. Barak Raya. Xr Chest Portable Result Date: 05/06/2019 TECHNIQUE: XR CHEST PORTABLE COMPARISON: CT PET CHEST WITH CONTRAST FINDINGS: Lines/tubes: There is an endotracheal tube that terminates 7 mm the ronen. Retracting the tube 2 cm is recommended. There is an epidural catheter in place that terminates over the lower thoracic spine. There is an enteric tube that crosses the diaphragm, the distal tip is not seen on this radiograph. There is a right-sided IJ introducer sheath in place that terminates at the cavoatrial junction. Lungs: Rotated radiograph with mildly low lung volumes.There is asymmetric density over the left lower lung likely secondary to asymmetric superimposed soft tissues. Minimal pulmonary edema. Pleura: There is no pleural effusion or pneumothorax. Heart and mediastinum: The cardiac mediastinal silhouette is at the upper limit normal in size. Bones: The thoracic skeleton is unremarkable. Endotracheal tube that terminates 7 mm from the ronen. Retracting the tracheal tube 2 cm is recommended. Lines and tubes as otherwise described in the body of this report. Minimal pulmonary edema. RECOMMENDATIONS: Endotracheal tube terminating 7 mm from the ronen. Recommend retracting 2 cm. The findings in this report were reported at the time of interpretation to Bouchra Swartz NP, who responded indicating that the communication was understood. ATTESTATION: I, Dr. Clovis Garcia as teaching physician, have reviewed the images for this case and if necessary edited the report originally created by Dr. Kong Zuleta. Procedure Procedures Procedures: MDM Assessment and Plan: Patient is afebrile here but reports a fever at home. She is nontoxic-appearing, stable vital signs, room air sats 100%. She does have significant tenderness over the medial inferior aspect of the left breast, without any overt erythema or discharge, however there does feel slightly warmer to touch. Will initiate antibiotic therapy, provide mastitis information in the AVS. Did encourage her to continue to breast-feed from the breast, and monitor her symptoms for any progression. If she experiences any worsening symptoms she should return here or go to the emergency room for evaluation. Due tothe patient's significant list of antibiotic allergies, I did initiate treatment with clindamycin. We did discuss potential side effects of C. difficile, with which she was familiar. Reviewed red flag symptoms that should warrant her to stop this medication and come in for repeat evaluation. She indicates understanding and agrees to this plan. Diagnosis 1. Mastitis documented in this encounter Plan of Treatment Not on file documented as of this encounter Visit Diagnoses Diagnosis Mastitis- Primary Inflammatory disease of breast documented in this encounter Care Teams Professor Of Marketing Relationship Specialty Start Date End Date Jennifer Bridges NP [address] [place] [address] [address] [place] [id number] [email or web address] PCP - General 12/31/18 Hayley Pandey MD [address] [place] [phone] [email or web address] Historical LMR Provider 01/15/19 03/30/21 Chloé Sánchez CNM [address] [place] [address] [email or web address] Historical LMR Provider 01/15/19 03/30/21 Dayana Galindo MD [address] [place] [phone] [email or web address] Historical LMR Provider 01/15/19 03/30/21 Ruiz Lewis DO [address] [place] [facility]01 [email or web address] Historical LMR Provider 01/15/19 03/30/21 Cain Morales MD [address] [place] [address] [id number] Historical LMR Provider 01/15/19 2 Kate Leal MD [address] [place] [phone] [email or web address] Historical LMR Provider 01/15/19 03/30/21 Jennifer Bridges NP 60 [facility] 3 [place] [address] [email or web address] Historical LMR Provider 01/15/19 10/31/19 Tari Willams 15 [facility] 201 [place] [address] Historical LMR Provider 01/15/19 2 Kody Ayon MD 60 [facility] 300 [place] [address] Historical LMR Provider 01/15/19 Cynthia Allen CNM [address] [facility], [facility] [place] [address] Historical LMR Provider 01/15/19 03/30/21 Tari Urias DO [address] [place] [address] [address] [place] [address] Historical LMR Provider 01/15/19 10/31/19 Palak Culver CNM 15 [facility] 102 [place] [address] Historical LMR Provider 01/15/19 03/30/21 Damaso Carranza MD 15 [facility] 102 [place], [place] [address] [email or web address] Historical LMR Provider 01/15/19 Ian Youssef MD [facility] Jordan Haynes [facility] 100 [place] [address] Historical LMR Provider 01/15/19 2 Jc Jacobs MD [address] [place] [id number] [email or web address] Historical LMR Provider 01/15/19 03/30/21 Eliz Saleem [place] [address] [email or web address] Historical LMR Provider 01/15/19 03/30/21 documented as of this encounter Additional Source Comments The information contained in this document represents components of the legal health record. It is not the complete legal health record.[facility]
--- OUTSIDE RECORDS SUMMARY | 2023-11-16 12:20 | XMS_ITS | Encounter Summary ---
Author Organization [facility] Address [phone] [facility] [place] [address] Care Team Providers Care Aircraft Engine Installer Name Role Phone Jennifer Bridges NP Primary Care Provider Hayley Pandey MD Unavailable + [phone] Chloé Sánchez CNM Unavailable [phone] Dayana Galindo MD Unavailable Ruiz Lewis DO Unavailable Xiomara Cain Morales MD Unavailable Kate Leal MD Unavailable [phone] Jennifer Bridges NP Unavailable [phone] Tari Willams Unavailable [phone] Kody Ayon MD Unavailable [phone] Cynthia Allen CNM Unavailable [phone] Tari Urias DO Unavailable Palak Culver CNM Unavailable [phone] Damsao Carranza MD Unavailable Ian Youssef MD Unavailable [phone] Jc Jacobs MD Unavailable Eliz Saleem [facility] Unavailable Reason for Visit * Reason Onset Date Comments Results 10/21/2019 Labs Encounter Details Date Type Department Care Team (Late st Contact Info) Description 10/21/[address] [id number] Paz Gandhi RN 36 [place] [address] [email or web address] Results (Labs) Social History Tobacco Use Types Packs/Day Years [...] Progress Notes * Paz Gandhi LPN - 10/21/2019 1:03 PM EDT Notified patient. She was not fasting but said she didn't eat that much that day. Advised it could be elevated even with small amount of food depending on what it was. Fasting is 10-12hrs of no food/drink besides water. We will check next year and keep an eye on it * Paz Gandhi LPN - 10/21/2019 11:43 AM EDT Images from the original note were not included. Pt called looking for lab results Belén Bravo MD [facility] Clinical ?? Labs so far are normal ??- thyroid, kidney functions, liver functions, test for inflammation and hormones are normal levels. Blood sugar was a little elevated. Was it fasting? Test for rheumatic problems pending still, will call when it is back. documented in this encounter Plan of Treatment Not on file documented as of this encounter Visit Diagnoses Not on filedocumented in this encounter Care Teams Aircraft Engine Installer Relationship Specialty Start Date End Date Jennifer Bridges NP [address] [place] [address] 3 [place] [address] [email or web address] PCP - General 12/31/18 Hayley Pandey MD [address] [place] [address] [email or web address] Historical LMR Provider 01/15/19 03/30/21 Chloé Sánchez CNM [address] [place] [address] [email or web address] Historical LMR Provider 01/15/19 03/30/21 Dayana Galindo MD [address] [place] [address] Historical LMR Provider 01/15/19 03/30/[address] [place] [address] [email or web address] Historical LMR Provider 01/15/19 03/30/21 Cain Morales MD [address] [place] [address] Historical LMR Provider 01/15/19 2 Kate Leal MD [address] [place] [address], [place] [address] [email or web address] Historical LMR Provider 01/15/19 03/30/21 Jennifer Bridges NP 60 [facility] 3 [place] [address] [email or web address] Historical LMR Provider 01/15/19 10/31/19 Tari Willams 15 [facility] 201 [place] [address] Historical LMR Provider 01/15/19 2 Kody Ayon MD [address] [place] [address] 300 [place] [address] Historical LMR Provider 01/15/19 Cynthia Allen CNM [address] [place] [address] [email or web address] Historical LMR Provider 01/15/19 03/30/21 Tari Urias DO [address] [place] [address] 200 [place] [address] Historical LMR Provider 01/15/19 10/31/19 Palak Culver CNM 15 [facility] 102 [place] [address] Historical LMR Provider 01/15/19 03/30/21 Damaso Carranza MD [address] [address] [email or web address] Historical LMR Provider 01/15/19 Ian Youssef MD 155 [facility] 100 [place] [address] Historical LMR Provider 01/15/19 2 Jc Jacobs MD [address] [place] [address] [email or web address] Historical LMR Provider 01/15/19 03/30/21 Eliz Saleem CN[place] [address] [email or web address] Historical LMR Provider 01/15/19 03/30/21 documented as of this encounter Additional Source Comments The information contained in this document represents components of the legal health record. It is not the complete legal health record.[facility]
--- OUTSIDE RECORDS SUMMARY | 2023-11-16 12:20 | XMS_ITS | Encounter Summary ---
Author Organization [facility] Address [phone] Critical access hospital [place] [address] Care Team Providers Care General Warehouse Associate Name Role Phone Jennifer Bridges NP Primary Care Provider Hayley Pandey MD Unavailable + [phone] Chloé Sánchez CNM Unavailable [phone] Dayana Galindo MD Unavailable Ruiz Lewis DO Unavailable Xiomara Cain Morales MD Unavailable [phone] Kate Leal MD Unavailable [phone] Jennifer Bridges NP Unavailable [phone] Tari Willams Unavailable [phone] Kody Ayon MD Unavailable [phone] Cynthia Allen CNM Unavailable [phone] Tari Urias DO Unavailable [phone] Palak Culver CNM Unavailable [phone] Damaso Carranza MD Unavailable Ian Youssef MD Unavailable [phone] Jc Jacobs MD Unavailable Eliz Saleem [facility] Unavailable Reason for Visit * Reason Onset Date Comments FYI 10/03/2019 appointment/refe rral? Encounter Details Date Type Department Care Team (Late st Contact Info) Description 10/03/2019 Telephone [facility] 60 [facility] 300 [place] [address] Belén Bravo MD [address] [place] [address] [email or web address] FYI (appointment/referral?) Social History Tobacco Use Types Packs/Day Years [...] as of this encounter Progress Notes * Yue Perry - 10/03/2019 11:00 AM EDT Patient called back and stated that she talked to her mom (who is a nurse) and thought maybe patient had symptoms of Lupus not Menopause. Patient is scheduled for an appointment tomorrow with you to discuss more. * Jabari Carballo - 10/03/2019 9:32 AM EDT Patient calling, had a partial hysterectomy in Apr @ [facility], Dr. Cole and is now having symptoms ofmenopause even though she still has her ovaries. Not sure whom she should follow up with regarding this. DL, pls advise documented in this encounter Plan of Treatment Not on file documented as of this encounter Visit Diagnoses Not on filedocumented in this encounter Care Teams General Warehouse Associate Relationship Specialty Start Date End Date Jennifer Bridges NP 60 [facility] 3 [place] [address] [email or web address] PCP - General 12/31/18 Hayley Pandey MD 15 [place] [address] [email or web address] Historical LMR Provider 01/15/19 03/30/21 Chloé Sánchez CNM [address] [place] [address] [email or web address] Historical LMR Provider 01/15/19 03/30/21 Dayana Galindo MD [address] [place] [address] [email or web address] Historical LMR Provider 01/15/19 03/30/21 [address] [place] [address] [email or web address] Historical LMR Provider 01/15/19 03/30/21 Cain Morales MD [address] [place] [address] Historical LMR Provider 01/15/19 2 Kate Leal MD [address] [place] [address] [email or web address] Historical LMR Provider 01/15/19 03/30/21 Jennifer Bridges NP 60 [facility] [address] [place] [address] [email or web address] Historical LMR Provider 01/15/19 10/31/[address] 15 [facility] 201 [place] [address] Historical LMR Provider 01/15/19 2 Kody Ayon MD 60 [facility] 300 [place] [address] Historical LMR Provider 01/15/19 Cynthia Allen CNM rumr, [facility] [place] [address] Historical LMR Provider 01/15/19 03/30/21 Tari Urias DO 10 [facility] 200 [place] [address] Historical LMR Provider 01/15/19 10/31/19 Palak Culver CNM 15 [facility] 102 [place] [address] Historical LMR Provider 01/15/19 03/30/21 Damaso Carranza MD 15 [facility] 102 [place] [address] Historical LMR Provider 01/15/19 Ian Youssef MD [facility] [place] [address] [address] Historical LMR Provider 01/15/19 2 Jc Jacobs MD [address] [place] [address] [email or web address] Historical LMR Provider 01/15/19 03/30/21 Eliz Saleem CNM [address] [place] [address] [email or web address] Historical LMR Provider 01/15/19 03/30/21 documented as of this encounter Additional Source Comments The information contained in this document represents components of the legal health record. It is not the complete legal health record.[facility]
--- OUTSIDE RECORDS SUMMARY | 2023-11-16 12:20 | XMS_ITS | Encounter Summary ---
Author Organization [facility] Address [phone] [place] [address] Care Team Providers Care Hr Receptionist Name Role Phone Jennifer Bridges NP Primary Care Provider Hayley Pandey MD Unavailable + [phone] Chloé Sánchez CNM Unavailable [phone] Dayana Galindo MD Unavailable Ruiz Lewis DO Unavailable Xiomara Cain Morales MD Unavailable Kate Leal MD Unavailable [phone] Jennifer Bridges NP Unavailable [phone] Tari Willams Unavailable [phone] Kody Ayon MD Unavailable [phone] Cynthia Allen CNM Unavailable [phone] Tari Urias DO Unavailable Palak Culver CNM Unavailable [phone] Damaso Carranza MD Unavailable Ian Youssef MD Unavailable [phone] Jc Jacobs MD Unavailable Eliz Saleem [facility] Unavailable Encounter Details Date Type Department Care Team (Latest Contact Info) Description 10/19/2019 4:16 PM EDT - 10/19/2019 11:59 PM EDT Hospital Encounter [facility] [place] [address] Discharge Disposition: Home or Self Care Social [...] hours as needed. 60 tablet 2 05/10/2019 buPROPion (WELLBUTRIN XL) 150 MG ER 24 hr tablet Take 150 mg by mouth daily. For depression 03/05/2020 95-iron epr-yqkiw-gly 28 mg iron-800 mcg-200 mg Cmpk 11/09/2021 triamcinolone acetonide 0.1 % creamIndications:Rash and other nonspecific skin eruption Apply topically 2 (two) times a day. 30 g 10/04/2019 11/09/2021 documented as of this encounter Plan of Treatment Not on file documented as of this encounter Procedures Procedure Name Priority Date/Time Associated Diagnosis Comments ANTINUCLEAR ANTIBODY HEP-2 SUBSTRATE (BRIAN) Routine 10/19/2019 4:17 PM EDT Fatigue, unspecified type Adenocarcinoma in situ of cervix Anxiety and depression Hair loss Rash and other nonspecific skin eruption Dry skin TSH WITH REFLEX Routine 10/19/2019 4:17 PM EDT Fatigue, unspecified type Adenocarcinoma in situ of cervix Anxiety and depression Hair loss Rash and other nonspecific skin eruption Dry skin CBC Routine 10/19/2019 4:17 PM EDT Fatigue, unspecified type Adenocarcinoma in situ of cervix Anxiety and depression Hair loss Rash and other nonspecific skin eruption Dry skin C-REACTIVE PROTEIN Routine 10/19/2019 4: 17 PM EDT Fatigue, unspecified type Adenocarcinoma in situ of cervix Anxiety and depression Hair loss Rash and other nonspecific skin eruption Dry skin LH Routine 10/19/2019 4:17 PM EDT Fatigue, unspecified type Adenocarcinoma in situ of cervix Anxiety and depression Hair loss Rash and other nonspecific skin eruption Dry skin FSH Routine 10/19/2019 4:17 PM EDT Fatigue, unspecified type Adenocarcinoma in situ of cervix Anxiety and depression Hair loss Rash and other nonspecific skin eruption Dry skin BASIC METABOLIC PANEL Routine 10/19/2019 4:17 PM EDT Fatigue, unspecified type Adenocarcinoma in situ of cervix Anxiety and depression Hair loss Rash and other nonspecific skin eruption Dry skin documented in this encounter Results * CBC (10/19/2019 4:17 PM EDT) WBC 5.67 3.9 - 11.0 K/uL [facility] RBC 4.29 3.70 - 5.10 M/uL [facility] HGB 13.9 11.0 - 15.0 g/dL [facility] HCT 41.0 34.0 - 46.0 % [facility] PLT 200 130 - 400 K/uL [facility] MCV 95.6 80.0 - 100.0 fL [facility] MCH 32.4 27.0 - 33.0 pg [facility] MCHC 33.9 31.0 - 36.0 g/dL [facility] RDW 13.6 0.0 - 15.0 % [facility] MPV 10.1 7.0 - 11.0 fl [facility] NRBC 0.00 0 - 0.20 /100 WBCs [facility] ABSOLUTE NRBC 0.00 0 - 0.01 K/uL [facility] Blood 10/19/2019 4:17 PM EDT 10/19/2019 4:29 PM EDT Belén Bravo MD LAB BLOOD ORDERABLE S Performing Organization Address City/[facility]/ZIP Co de Phone Number [address] [phone] * TSH with reflex (10/19/2019 4:17 PM EDT) SCREENING PANEL: TSH 2.20 0.358 - 3.74 uIU/mL [facility] Blood 10/19/2019 4:17 PM EDT 10/19/2019 4:30 PM EDT Belén Bravo MD LAB BLOOD ORDERABLE S Performing Organization Address City/[facility]/ZIP Co de Phone Number [address] [phone] * (ABNORMAL) Basic metabolic panel (10/19/2019 4:17 PM EDT) SODIUM 138 134 - 146 mmol/L [facility] CHLORIDE 106 96 - 110 mmol/L [facility] POTASSIUM 3.8 3.5 - 5.3 mmol/L [facility] CO2 28 21 - 31 mmol/L [facility] BUN 15 6 - 26 mg/dL [facility] CREATININE 0.79 0.51 - 0.95 mg/dL [facility] GLUCOSE 114(H) 65 - 99 mg/dL [facility] CALCIUM 9.4 8.2 - 10.2 mg/dL [facility] EGFR 101 >59 mL/min/1.7 3m2 [facility] Comment:Estimated glomerular filtration rate calculated using the CKD-EPI equation. ANION GAP 4(L) 5 - 15 mmol/L [facility] Blood 10/19/2019 4:17 PM EDT 10/19/2019 4:30 PM EDT Belén Bravo MD LAB BLOOD ORDERABLE S [address] [phone] * C-Reactive Protein (10/19/2019 4:17 PM EDT) C REACTIVE PROTEIN <2.9 0 - 3 mg/L [facility] Comment:Results >10.0 mg/L a re suggestive of acute inflammation. Blood 10/19/2019 4:17 PM EDT 10/19/2019 4:30 PM EDT Belén Bravo MD LAB BLOOD ORDERABLE S Performing Organization Address City/[facility]/[place] [address], [facility] [phone] * ANTINUCLEAR ANTIBODY HEP-2 SUBSTRATE (BRIAN) (10/19/2019 4:17 PM EDT) BRIAN HEp-2, IgG <1:80 <1:80 [facility] BRIAN Interp Comment SEE NOTE [facility] Comment: (NOTE) Antinuclear antibodies by IFA negative for homogeneous, speckled, nucleolar, centromere, and nuclear dots patterns. No cytoplasmic pattern observed. INTERPRETIVE INFORMATION: BRIAN Interpretive Comment Presence of antinuclear antibodies (BRIAN) is a hallmark feature of systemic autoimmune rheumatic diseases (SARD). BRIAN lacks diagnostic specificity and is associated with a variety of diseases (cancers, autoimmune, infectious, and inflammatory conditions) and may also occur in healthy individuals in varying prevalence. The lack of diagnostic specificity requires confirmation of positive BRIAN by more-specific serologic tests. BRIAN (nuclear reactivity) positive patterns reported include centromere, homogeneous, nuclear dots, nucleolar, or speckled. Cytoplasmic pattern is reported as BRIAN negative. All patterns are reported to endpoint titers (1:2560). Reported patterns may help guide differential diagnosis, although they may not be specific for individual antibodies or diseases. Negative results do not necessarily rule out SARD. Performed By: [employer] [facility] [address] [place] [address] Concentrator Operator: Vj Madrigal MD, MS Blood 10/19/2019 4:17 PM EDT 10/19/2019 4:30 PM EDT Belén Bravo MD LAB BLOOD ORDERABLE S Performing Organization Address City/[facility]/ZIP Co de Phone Number [facility] [address] [place] [address] * FSH (10/19/2019 4:17 PM EDT) FSH 11.1 IU/L [facility] Comment: Reference Range: ? Males 1.4-18.1 IU/L Menstruating Females: Follicular phase: 2.5-10.2 IU/L Midcycle: 3.4-33.4 IU/L Luteal phase: 1.5-9.1 IU/L <0.3 IU/L Postmenopausal females: 23.0-116.3 IU/L Blood 10/19/2019 4:17 PM EDT 10/19/2019 4:30 PM EDT Belén Bravo MD LAB BLOOD ORDERABLE S [address] [phone] * LH (10/19/2019 4:17 PM EDT) LH 7.4 IU/L [facility] Comment: Reference Range: ? 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 PCP - General 12/31/18 Hayley Pandey MD 15 [place] [address] Historical LMR Provider 01/15/19 03/30/21 Chloé Sánchez CNM [address] [place] [address] Historical LMR Provider 01/15/19 03/30/21 Dayana Galindo MD 15 [place] [address] Historical LMR Provider 01/15/19 03/30/21 Ruiz Lewis DO [address] [place] [address] [email or web address] Historical LMR Provider 01/15/19 03/30/21 Cain Morales MD 10 [facility] 401 [place] [address] Historical LMR Provider 01/15/19 2 Kate Leal MD 15 [facility] 102 [place] [address] [email or web address] Historical LMR Provider 01/15/19 03/30/21 Jennifer Bridges NP 60 [facility] 3 [place] [address] [email or web address] Historical LMR Provider 01/15/19 10/31/19 Tari Willams 15 [facility] 201 [place] [address] Historical LMR Provider 01/15/19 2 Kody Ayon MD 60 [facility] 300 [place] [address] Historical LMR Provider 01/15/19 Cynthia Allen CNM [address] [place] [address], [facility] [place] [id number] Historical LMR Provider 01/15/19 03/30/21 Tari Urias DO 10 [facility] 200 [place] [address] Historical LMR Provider 01/15/19 10/31/19 Palak Culver CNM [address] [address] Historical LMR Provider 01/15/19 03/30/21 Damaso Carranza MD [address] [address] Historical LMR Provider 01/15/19 Ian Youssef MD [address] [place] [address] Historical LMR Provider 01/15/19 2 Jc Jacobs MD [address] [place] [address] [email or web address] Historical LMR Provider 01/15/19 03/30/21 Eliz Saleem CNM [employer] [facility], [place] [address] Historical LMR Provider 01/15/19 03/30/21 documented as of this encounter Additional Source Comments The information contained in this document represents components of the legal health record. It is not the complete legal health record.[facility]
--- OUTSIDE RECORDS SUMMARY | 2023-11-16 12:20 | XMS_ITS | Encounter Summary ---
Author Organization [facility] Address [phone] Formerly [facility] [place] [address] Care Team Providers Care Special Agent Secret Service Name Role Phone Jennifer Bridges NP Primary Care Provider Hayley Pandey MD Unavailable [phone] Chloé Sánchez CNM Unavailable [phone] Dayana Galindo MD Unavailable Ruiz Lewis DO Unavailable Xiomara Cain Morales MD Unavailable Kate Leal MD Unavailable [phone] Jennifer Bridges NP Unavailable [phone] Tari Willams Unavailable [phone] Kody Ayon MD Unavailable [phone] Cynthia Allen CNM Unavailable [phone] Tari Urias DO Unavailable [phone] Palak Culver CNM Unavailable [phone] Damaso Carranza MD Unavailable Ian Youssef MD Unavailable [phone] Jc Jacobs MD Unavailable Eliz Saleem [facility] Unavailable Reason for Visit * Reason Comments Emesis Pt had hysterectomy [facility], required ICU admission for blood loss during surgery x2 weeks ago. Pt reports increase in pain and vomiting today. Encounter Details Date Type Department Care Team (Late st Contact Info) Description 05/25/2019 7:25 PM EST - 05/25/2019 10:[address] [facility] Emergency Department [address] [place] [id number] Mark Finn MD [address] [place] [phone] [email or web address] Discharge Disposition: Home or Self Care Social [...] Sign Reading Time Taken Comments Blood Pressure 111/79 05/25/2019 10:30 PM EST Pulse 74 05/25/2019 10:48 PM EST Temperature 37.1 ??C (98.8 ??F) 05/25/2019 10:[address] Respiratory Rate 18 05/25/2019 10:48 PM EST Oxygen Saturation 99% 05/25/2019 10:30 PM EST Inhaled Oxygen Concentration - - Weight 55.4 kg (122 lb 2.2 oz) 05/25/2019 8:29 P M EST Height 149.9 cm (4' 11) 05/25/2019 6:58 PM EST Body Mass Index 24.67 05/25/2019 6:58 PM EST documented in this encounter Discharge Instructions * Discharge Instructions* Mark Finn MD - 05/25/2019 10:28 PM EST Continue current medications. documented in this encounter Medications at Time of Discharge [...] mg by mouth daily. For depression 03/05/2020 diphenhydrAMINE (BENADRYL) 25 mg capsule Take 1 capsule (25 mg total) by mouth every 6 (six) hours as needed for itching. 50 capsule 1 05/10/2019 10/04/2019 enoxaparin (LOVENOX) 40 mg/0.4 mL Syrg subcutaneous syringe Inject 0.4 mL (40 mg total) under the skin daily for 28 days. 11.2 mL 05/10/2019 10/04/2019 norethindrone (MICRONOR) 0.35 mg tabletIndications:Encou nter for initial prescription of contraceptive pills Take 1 tablet (0.35 mg total) by mouth daily. Micronor 1 tab po QD 28 tablet 6 03/30/2019 10/04/2019 ondansetron (ZOFRAN-ODT) 8 MG disintegrating tablet Take 1 tablet (8 mg total) by mouth every 8 (eight) hours as needed for nausea. 10 tablet 05/25/2019 10/04/2019 oxyCODONE 5 MG immediate release tablet Take 1-2 tablets (5-10 mg total) by mouth every 4 (four) hours as needed for moderate pain. Partial fill ok 15 tablet 05/10/2019 10/04/2019 95-iron [id number] 28 mg iron-800 mcg-200 mg Cmpk 11/09/2021 documented as of this encounter ED Notes * Mark Finn MD - 05/25/2019 7:27 PM EST [facility] Emergency Department Provider Note: HPI: Marylou Shafer is a 28 y.o. female weeks status hysterectomy done at [facility] complicated by significant bleeding. Patient had been doing well at home until increasing pain suprapubically and bilateral lower quadrants throughout the day today. She is had no fevers or chills. Denies feeling lightheaded or near syncopal. Has been somewhat constipated. Denies urinary symptoms. ROS: Review of Systems Constitutional: Negative for chills and fever. HENT: Negative for congestion, dental problem, ear pain and sore throat. Eyes: Negative for photophobia and pain. Respiratory: Negative for cough, chest tightness, shortness of breath and wheezing. Cardiovascular: Negative for chest pain and palpitations. Gastrointestinal: Positive for abdominal pain and constipation. Negative for diarrhea, nausea, rectal pain and vomiting. Genitourinary: Negative for difficulty urinating, dysuria, flank pain, frequency, hematuria and urgency. Musculoskeletal: Negative for back pain, gait problem and neck pain. Skin: Negative for rash and wound. Neurological: Negative for dizziness, weakness, light-headedness, numbness and headaches. Psychiatric/Behavioral: Negative for dysphoric mood. The patient is not nervous/anxious. All other systems reviewed and are negative. Past Medical History/Problem List: Past Medical History: Diagnosis Date ??? Adenocarcinoma in situ of cervix ??? Anemia ??? Anxiety and depression ??? Asthma young child ??? Cancer ??? Eye muscle paralysis right eye partial ??? Hypertensive disorder with pregnancies; resolved after births Patient Active Problem List Diagnosis ??? Partial third nerve palsy ??? Arnold-Chiari malformation ??? Post-operative state ??? Cervical cancer, FIGO stage IB1 Past Surgical History: Past Surgical History: Procedure Laterality Date ??? CERVIX SURGERY cold knife ??? HYSTERECTOMY ??? UNCODED SURGICAL HISTORY Asthma as child, allergies now ??? UNCODED SURGICAL HISTORY Polydypsia ??? UNCODED SURGICAL HISTORY Cervical Dysplasia, mild; Colposcopy, without biopsy; 10/14/2013; 04/08/2016 - @ [facility] ??? UNCODED SURGICAL HISTORY Abdominal pain ??? UNCODED SURGICAL HISTORY Blood glucose abnormal finding ??? UNCODED SURGICAL HISTORY Pre-eclampsia ??? UNCODED SURGICAL HISTORY Cervicitis/ endocervicitis ??? UNCODED SURGICAL HISTORY Vaginal candidiasis ??? UNCODED SURGICAL HISTORY Arnold-chiari decompression; 2005 ??? UNCODED SURGICAL HISTORY ; ; Pre-echlampsia w/SF on Mag, pre term labor ??? UNCODED SURGICAL HISTORY Malaise/ fatigue ??? UNCODED SURGICAL HISTORY ; ; 10/06/2018 ??? UNCODED SURGICAL HISTORY HPV ??? UNCODED SURGICAL HISTORY 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; 2006 ??? UNCODED SURGICAL HISTORY Polyuria Medications: Patient's Medications New Prescriptions No medications on file Previous Medications ACETAMINOPHEN (TYLENOL) 325 MG TABLET Take 3 tablets (975 mg total) by mouth every 6 (six) hours. BUPROPION (WELLBUTRIN XL) 150 MG ER 24 HR TABLET Take 150 mg by mouth daily. For depression DIPHENHYDRAMINE (BENADRYL) 25 MG CAPSULE Take 1 capsule (25 mg total) by mouth every 6 (six) hours as needed for itching. ENOXAPARIN (LOVENOX) 40 MG/0.4 ML SYRG SUBCUTANEOUS SYRINGE Inject 0.4 mL (40 mg total) under the skin daily for 28 days. IBUPROFEN (ADVIL,MOTRIN) 600 MG TABLET Take 1 tablet (600 mg total) by mouth every 6 (six) hours asneeded. NORETHINDRONE (MICRONOR) 0.35 MG TABLET Take 1 tablet (0.35 mg total) by mouth daily. Micronor 1 tab po QD OXYCODONE 5 MG IMMEDIATE RELEASE TABLET Take 1-2 tablets (5-10 mg total) by mouth every 4 (four) hours as needed for moderate pain. Partial fill ok 95-IRON [id number] ( + DHA) 28 MG IRON-800 MCG-200 MG CMPK Modified Medications No medications on file Discontinued Medications No medications on file Social History: Social History Tobacco Use ??? Smoking status: Never Smoker ??? Smokeless tobacco: Never Used Substance Use Topics ??? Alcohol use: Not Currently Allergies: Allergies Allergen Reactions ??? Heparin Analogues Bleeding ??? Cantaloupe Mouth and throat itching ??? Cephalexin Monohydrate ??? Other ragweed ??? Paroxetine Hcl Nausea Only ??? Penicillin ??? Penicillins Rash ??? Sertraline Nausea Only ??? Sulfamethoxazole ??? Trimethoprim ??? Valacyclovir Hcl Physical Exam: BP 108/82 Pulse 84 Temp 37.1 ??C (98.8 ??F) Resp 20 Ht 149.9 cm (4' 11) Wt 55.4 kg (122 lb 2.2 oz) SpO2 98% Yes BMI 24.67 kg/m?? Physical Exam Vitals signs and nursing note reviewed. Constitutional: General: She is not in acute distress. Appearance: She is well-developed. HENT: Head: Normocephalic and atraumatic. Nose: Nose normal. Eyes: General: No scleral icterus. Conjunctiva/sclera: Conjunctivae normal. Pupils: Pupils are equal, round, and reactive to light. Neck: Musculoskeletal: Normal range of motion and neck supple. Trachea: No tracheal deviation. Cardiovascular: Rate and Rhythm: Normal rate and regular rhythm. Pulmonary: Effort: Pulmonary effort is normal. No respiratory distress. Breath sounds: Normal breath sounds. Abdominal: General: Bowel sounds are normal. There is no distension. Palpations: Abdomen is soft. Comments: Mild suprapubic tenderness, appropriate status post surgery. No rebound referred pain guarding or masses. Midline incision is clean dry and intact with no erythema drainage or sign of infection. Musculoskeletal: Normal range of motion. Skin: General: Skin is warm. Findings: No rash. Neurological: Mental Status: She is alert and oriented to person, place, and time. Cranial Nerves: No cranial nerve deficit. Psychiatric: Behavior: Behavior normal. Thought Content: Thought content normal. Judgment: Judgment normal. ED Course and Medical Decision-making: MDM Results for orders placed or performed during the hospital encounter of 05/25/19 Lipase Result Value Ref Range LIPASE 58 (L) 73 - 393 U/L Lab Add On: lipase Result Value Ref Range CONTACT INFORMATION 2058 TEST REQUESTED LIPASE Comments (Chemistry) Add on request in process Urinalysis w/reflex Urine Culture Result Value Ref Range COLOR Yellow CLARITY HAZY (*) Clear GLUCOSE Negative Negative BILI Negative Negative KETONES 80 (*) Negative SPECIFIC GRAVITY 1.022 1.005 - 1.030 BLOOD Negative Negative PH 7.5 4.5 - 8.0 Protein-UA Negative Negative UROBILINOGEN <2.0 <2.0 NITRITE Negative Negative Leukocyte esterase, ur Trace (*) Negative RBC 4 (H) 0 - 3 /hpf SQUAMOUS CELLS 1 0 - 5 /hpf BACTERIA Few (*) None /hpf MUCUS 1+ (*) None Magnesium Result Value Ref Range MAGNESIUM 2.0 1.6 - 2.6 mg/dL LFTs (hepatic panel) Result Value Ref Range ALBUMIN 4.7 3.4 - 5.2 g/dL TOTAL BILIRUBIN 1.0 0.0 - 1.2 mg/dL DIRECT BILIRUBIN 0.2 0.0 - 0.3 mg/dL ALKALINE PHOSPHATASE 68 45 - 117 U/L AST 11 0 - 40 U/L ALT 16 12 - 78 U/L TOTAL PROTEIN 8.1 6.2 - 8.3 g/dL Basic metabolic panel Result Value Ref Range SODIUM 136 134 - 146 mmol/L CHLORIDE 105 96 - 110 mmol/L POTASSIUM 3.8 3.5 - 5.3 mmol/L CO2 22 21 - 31 mmol/L BUN 10 6 - 26 mg/dL CREATININE 0.58 0.51 - 0.95 mg/dL GLUCOSE 92 65 - 99 mg/dL CALCIUM 9.8 8.2 - 10.2 mg/dL EGFR >120 >59 mL/min/1.73m2 ANION GAP 9 5 - 15 mmol/L CBC and differential Result Value Ref Range WBC 8.37 3.9 - 11.0 K/uL RBC 4.23 3.70 - 5.10 M/uL HGB 13.1 11.0 - 15.0 g/dL HCT 38.4 34.0 - 46.0 % PLT 408 (H) 130 - 400 K/uL MCV 90.8 80.0 - 100.0 fL MCH 31.0 27.0 - 33.0 pg MCHC 34.1 31.0 - 36.0 g/dL RDW 13.3 0.0 - 15.0 % MPV 9.4 7.0 - 11.0 fl NRBC 0.00 0 - 0.20 /100 WBCs ABSOLUTE NRBC 0.00 0 - 0.01 K/uL NEUTS 73.3 % LYMPHS 17.3 % MONOS 7.8 % EOS 0.8 % BASOS 0.6 % ABSOLUTE NEUTS 6.13 1.8 - 7.0 K/uL ABSOLUTE LYMPHS 1.45 1.0 - 4.0 K/uL ABSOLUTE MONOS 0.65 0.0 - 0.8 K/uL ABSOLUTE EOS 0.07 0.0 - 0.45 K/uL ABSOLUTE BASOS 0.05 0.0 - 0.20 K/uL % IMMATURE GRANS 0.2 0.0 - 2.0 % ABS IMMATURE GRANS 0.02 0.00 - 0.09 K/uL DIFF METHOD Auto Influenza A & B (PCR) Result Value Ref Range Influenza A PCR Negative Negative Influenza B PCR Negative Negative CT Abdomen/Pelvis (Results Pending) ED Course as of May 25 2227 Wed May 25, [id number] [facility], CT scan of the abdomen demonstrates postsurgical changes, no evidence ofacute abscess or bleeding is appreciated. CT Abdomen/Pelvis [EW] [address] Marce Cole of [facility] who was reassured by the patient's normal white count lack of fever and CT findings. He agreed to follow-up with her closely [EW] ED Course User Index [EW] Mark Finn MD Clinical Impressions as of May 25 2227 Periumbilical abdominal pain Diagnosis/Diagnoses: Final diagnoses: Periumbilical abdominal pain Portions of the record may have been created with voice recognition software. Occasional wrong-wordor [id number] substitutions may have occurred due to the inherent limitations of voice recognition software. Read the chart carefully and recognize, using context, where substitutions have occurred. Mark Finn MD 05/25/192227 documented in this encounter Plan of Treatment Not on file documented as of this encounter Procedures Procedure Name Priority Date/Time Associated Diagnosis Comments CT ABDOMEN/PELVIS WITH CONTRAST Routine 05/25/2019 9:11 PM EST INFLUENZA A & B (PCR) STAT 05/25/2019 7:28 PM EST URINALYSIS W/REFLEX URINE CULTURE STAT 05/25/2019 7:28 PM EST URINE CULTURE STAT 05/25/2019 7:28 PM EST LFTS (HEPATIC PANEL) STAT 05/25/2019 7:28 PM EST HC BLOOD COUNT COMPLETE AUTO&AUTO DIFRNTL WBC STAT 05/25/2019 7:28 PM EST LAB ADD ON STAT 05/25/2019 7:28 PM EST MAGNESIUM STAT 05/25/2019 7:28 PM EST LIPASE Routine 05/25/2019 7:28 PM EST BASIC METABOLIC PANEL STAT 05/25/2019 7:28 PM EST documented in this encounter Results * CT ABDOMEN/PELVIS WITH CONTRAST (05/25/2019 9:11 PM EST) Anatomical Region Laterality Modality Abdomen, Pelvis Computed Tomogra phy 05/26/2019 7:14 AM EST Impressions 05/26/2019 7:31 AM EST Patient is status post hysterectomy. There is a 5.5 cm x 5.3 cm soft tissue density homogeneous masslike structure in the left hemipelvis of uncertain etiology. This may represent residual mass or a hematoma. Correlate with surgical procedure in comparison to prior CT would be helpful. Small amount of fluid in the pelvis with some small [...] report faxed and phoned to ER by [facility] time of exam Narrative 05/26/2019 7:[address] OF THE ABDOMEN AND PELVIS CLINICAL INDICATION: ??*Abdominal infection suspected s/p hyst ?? history of adenocarcinoma of the cervix. COMPARISON: None. PROCEDURE: Contiguous axial tomographic sections were obtained from the dome of the diaphragm through the ischial tuberosities following the administration of 80 mL of Omnipaque 350 IV and no enteric contrast. Coronal and sagittal reformats were then performed. ??Automated exposure control was utilized for dose reduction. [...] abdomen. Pelvis: Patient is status post hysterectomy. There is [...] 4 cm on series 3 image 63. There is a small focus of fluid measuring 1.0 [...] distended loops of bowel present to suggest bowel obstruction. There is air within a nondistended appendix. There is some subcutaneous fat stranding from midline incision within the lower abdominal and pelvic wall. No acute osseous abnormalities identified. Procedure Note Ruiz Arteaga MD - 05/26/2019 CT OF THE ABDOMEN AND PELVIS CLINICAL INDICATION: *Abdominal infection suspected s/p hyst history of adenocarcinoma of the cervix. COMPARISON: None. PROCEDURE: Contiguous axial tomographic sections were obtained from the dome of the diaphragm through the ischial tuberosities following the administration of 80 mL of Omnipaque 350 IV and no enteric contrast. Coronal and sagittal reformats were then performed. Automated exposure control was utilized for dose reduction. FINDINGS: Abdomen: The visualized lung bases are clear. The liver, gallbladder, spleen, adrenal glands, kidneys and pancreas demonstrate no acute abnormalities. No aneurysmal dilatation of the abdominal aorta. Thereare some small but no enlarged lymph nodes in the mesenteric orretroperitoneal region by CT size criteria. No free air or significant free fluid in the abdomen. Pelvis: Patient is status post hysterectomy. There is [...] of the hysterectomy bed measuring 1.1 cm x4 cm on series 3 image 63. There is a small focus of fluid measuring 1.0 cmx 1.2 cm anteriorly in the right hemipelvis. There is a small fluid containing structure measuring 2.7 cm x 1.2 cm in the left anterior hemipelvis nonspecific. This may represent a fluid collection versusleft ovarian cyst as the patient states there are ovaries remain. No internal air in these collections. There is some wall thickening and adjacentloops of small bowel in the pelvis likely reactive. No distended loops ofbowel present to suggest bowel obstruction. There is air within a nondistended appendix. There is some subcutaneous fat stranding from midline incision within the lower abdominal and pelvic wall. No acute osseousabnormalities identified. IMPRESSION: Patient is status post hysterectomy. There is a 5.5 cm x 5.3 cm soft tissue density homogeneous masslike structure in the left hemipelvis of uncertain etiology. This mayrepresent residual mass or a hematoma. Correlate with surgical procedure in comparison to prior CT would be helpful. Small amount of fluid in the pelvis with some small fluid collectionsthat may resenting postsurgical collections. No internal air in these collections to suggest a definite abscess however small early infected collections cannot be excluded. Continued surveillance recommended.These areas of fluid in the left adnexa may resenting ovarian cyst as patient states ovaries remain. There is some bowel wall thickening in the pelvis likely representing reactive inflammation. No bowel obstruction. No free air identified. Prelim report faxed and phoned to ER by [facility] time of exam Mark Finn MD IMG CT ABD/PELVIS * (ABNORMAL) Urine culture (05/25/2019 7:28 PM EST) Special Requests None Reflexed from [id number] 05/25/2019 8:08 PM EST [facility] Urine Culture MIXED GRAM POSITIVE AND NEGATIVE ORGANISMS PROBABLE CONTAMINATION >100,000 colony forming units per mL No sensitivity performed(A) 05/27/2019 8:54 AM EST [facility] Urine 05/25/2019 7:28 PM EST 05/25/2019 7:50 PM EST Cain Medrano MD MICROBIOLOGY - G [facility] ORDERABLES [address] [phone] * (ABNORMAL) Lipase (05/25/2019 7:28 PM EST) LIPASE 58(L) 73 - 393 U/L [facility] 05/25/2019 7:28 PM EST 05/25/2019 8:06 PM EST Mark Finn MD LAB BLOOD ORDERABLE S Performing Organization Address [facility]/ZIP Co de Phone Number [address] [phone] * Lab Add On: lipase (05/25/2019 7:28 PM EST) CONTACT INFORMATION 5322 [facility] TEST REQUESTED LIPASE [facility] Comments (Chemistry) Add on request in process [facility] 05/25/2019 7:28 PM EST 05/25/2019 8:06 PM EST Mark Finn MD LAB BLOOD ORDERABLE S Performing Organization Address [facility] de Phone Number [address] [phone] * Influenza A & B (PCR) (05/25/2019 7:28 PM EST) Influenza A PCR Negative Negative [facility] Influenza B PCR Negative Negative [facility] Other (Nasopharyngeal swab) 05/25/2019 7:28 PM EST 05/25/2019 7:54 PM EST Cain Medrano MD MICROBIOLOGY - G [facility] ORDERABLES Performing Organization Address [facility] Co de Phone Number [address] [phone] * (ABNORMAL) Urinalysis w/reflex Urine Culture (05/25/2019 7:28 PM EST) COLOR Yellow [facility] CLARITY HAZY(A) Clear [facility] GLUCOSE Negative Negative [facility] BILI Negative Negative [facility] KETONES 80(A) Negative [facility] SPECIFIC GRAVITY 1.022 1.005 - 1.030 [facility] BLOOD Negative Negative [facility] PH 7.5 4.5 - 8.0 [facility] Protein-UA Negative Negative [facility] UROBILINOGEN <2.0 <2.0 [facility] NITRITE Negative Negative [facility] Leukocyte esterase, ur Trace(A) Negative [facility] RBC 4(H) 0 - 3 /hpf [facility] SQUAMOUS CELLS 1 0 - 5 /hpf [facility] BACTERIA Few(A) None /hpf [facility] MUCUS 1+(A) None [facility] Urine (Urine) 05/25/2019 7:2 8 PM EST 05/25/2019 7:50 PM EST Cain Medrano MD URINE ORDERABLES Performing Organization Address [facility]/ZIP Co de Phone Number [address] [phone] * Magnesium (05/25/2019 7:28 PM EST) MAGNESIUM 2.0 1.6 - 2.6 mg/dL [facility] Blood 05/25/2019 7:28 PM EST 05/25/2019 7:49 PM EST Cain Medrano MD LAB BLOOD ORDERA BLES Performing Organization Address [facility]/ZIP Co de Phone Number [address] [phone] * LFTs (hepatic panel) (05/25/2019 7:28 PM EST) ALBUMIN 4.7 3.4 - 5.2 g/dL [facility] TOTAL BILIRUBIN 1.0 0.0 - 1.2 mg/dL [facility] DIRECT BILIRUBIN 0.2 0.0 - 0.3 mg/dL [facility] ALKALINE PHOSPHATASE 68 45 - 117 U/L [facility] AST 11 0 - 40 U/L [facility] ALT 16 12 - 78 U/L [facility] TOTAL PROTEIN 8.1 6.2 - 8.3 g/dL [facility] Blood 05/25/2019 7:28 PM EST 05/25/2019 7:49 PM EST Cain Medrano MD LAB BLOOD ORDERA BLES Performing Organization Address City/[facility]/ZIP Co de Phone Number [address] [phone] * Basic metabolic panel (05/25/2019 7:28 PM EST) SODIUM 136 134 - 146 mmol/L [facility] CHLORIDE 105 96 - 110 mmol/L [facility] POTASSIUM 3.8 3.5 - 5.3 mmol/L [facility] CO2 22 21 - 31 mmol/L [facility] BUN 10 6 - 26 mg/dL [facility] CREATININE 0.58 0.51 - 0.95 mg/dL [facility] GLUCOSE 92 65 - 99 mg/dL [facility] CALCIUM 9.8 8.2 - 10.2 mg/dL [facility] EGFR >120 >59 mL/min/1.7 3m2 [facility] Comment:If patient is black, multiply result by 1.159. Estimated glomerular filtration rate calculated using the CKD-EPI equation. ANION GAP 9 5 - 15 mmol/L [facility] Blood 05/25/2019 7:28 PM EST 05/25/2019 7:49 PM EST Cain Medrano MD LAB BLOOD ORDERA BLES [facility] [address] [phone] * (ABNORMAL) CBC and differential (05/25/2019 7:28 PM EST) WBC 8.37 3.9 - 11.0 K/uL [facility] RBC 4.23 3.70 - 5.10 M/uL [facility] HGB 13.1 11.0 - 15.0 g/dL [facility] HCT 38.4 34.0 - 46.0 % [facility] PLT 408(H) 130 - 400 K/uL [facility] MCV 90.8 80.0 - 100.0 fL [facility] MCH 31.0 27.0 - 33.0 pg [facility] MCHC 34.1 31.0 - 36.0 g/dL [facility] RDW 13.3 0.0 - 15.0 % [facility] MPV 9.4 7.0 - 11.0 fl [facility] NRBC 0.00 0 - 0.20 /100 WBCs [facility] ABSOLUTE NRBC 0.00 0 - 0.01 K/uL [facility] NEUTS 73.3 % [facility] LYMPHS 17.3 % [facility] MONOS 7.8 % [facility] EOS 0.8 % [facility] BASOS 0.6 % [facility] ABSOLUTE NEUTS 6.13 1.8 - 7.0 K/uL [facility] ABSOLUTE LYMPHS 1.45 1.0 - 4.0 K/uL [facility] ABSOLUTE MONOS 0.65 0.0 - 0.8 K/uL [facility] ABSOLUTE EOS 0.07 0.0 - 0.45 K/uL [facility] ABSOLUTE BASOS 0.05 0.0 - 0.20 K/uL [facility] % IMMATURE GRANS 0.2 0.0 - 2.0 % [facility] Comment:An increased IG of > 2% has been shown to be an early screen for acute infection. IG can also be elevated in severe inflammatory response, MDS, CMPN, etc. ABS IMMATURE GRANS 0.02 0.00 - 0.09 K/uL [facility] DIFF METHOD Auto [facility] Blood 05/25/2019 7:28 PM EST 05/25/2019 7:49 PM EST Cain Medrano MD LAB BLOOD ORDERA BLES [address] [phone] documented in this encounter Visit Diagnoses Diagnosis Periumbilical abdominal pain- Primary Abdominal pain, periumbilic documented in this encounter Administered Medications Inactive Administered Medications - up to 3 most recent administrations Medication Order MAR Action Action Date Dose Rate Site iohexoL (OMNIPAQUE-350) 350 mg iodine/mL solution 80 mL 80 mL, Intravenous, Once as needed, pre procedure/treatment, Starting on Thu05/25/19 at 2112, For 1 dose, Procedural Contrast/Med Active Now, Each mL contains 755 mg of iohexol equivalent to 350 mg of organic iodine. magnesium hydroxide (MOM) 400 mg/5 mL oral suspension 2,400 mg 2,400 mg, Oral, Once, On Thu05/25/19 at 2230, For 1 dose, Shake Well Given 05/25/2019 10:40 PM EST 2,400 mg morphine injection 4 mg 4 mg, Intravenous, Once, On Thu05/25/19 at 2030, For 1 dose Given 05/25/2019 8:22 PM EST 4 mg ondansetron (PF) (ZOFRAN) injection 4 mg 4 mg, Intravenous, Once, On Thu05/25/19 at 2030, For 1 dose Given 05/25/2019 8:22 PM EST 4 mg ondansetron (ZOFRAN-ODT) disintegrating tablet 8 mg 8 mg, Oral, Once, On Thu05/25/19 at 2245, For 1 dose, Do not remove from blister until needed. Peel backing off the blister, do not push tablet through. Using dry hands, place tablet on tongue and allow to dissolve. Swallow with saliva. Place on tongue Given 05/25/2019 10:40 PM EST 8 mg sodium chloride 0.9% bolus 1,000 mL 1,000 mL, Intravenous, Administer over 30 Minutes, at 2,000 mL/hr, Once, On Thu05/25/19 at 2030, For 1 dose New Bag 05/25/2019 8:23 PM EST 1,000 mL 2000 mL/hr documented in this encounter Active and Recently Administered Medications Times are shown in EST. Scheduled Medication Order 05/23/2019 05/24/2019 05/25/2019 magnesium hydroxide (MOM) 400 mg/5 mL oral suspension 2,400 mg (COMPLETED) 2,400 mg, Oral, Once, On Thu05/25/19 at 2230, For 1 dose, Shake Well 2239 (Given - Provid er: Ruth Still RN) morphine injection 4 mg (COMPLETED) 4 mg, Intravenous, Once, On Thu05/25/19 at 2030, For 1 dose 2021 (Given - Provid er: Ruth Still RN) ondansetron (PF) (ZOFRAN) injection 4 mg (COMPLETED) 4 mg, Intravenous, Once, On Thu05/25/19 at 2030, For 1 dose 2021 (Given - Provid er: Ruth Still RN) ondansetron (ZOFRAN-ODT) disintegrating tablet 8 mg (COMPLETED) 8 mg, Oral, Once, On Thu05/25/19 at 2245, For 1 dose, Do not remove from blister until needed. Peel backing off the blister, do not push tablet through. Using dry hands, place tablet on tongue and allow to dissolve. Swallow with saliva. Place on tongue 2240 (Given - Provid er: Ruth Still RN) sodium chloride 0.9% bolus 1,000 mL (COMPLETED) 1,000 mL, Intravenous, Administer over 30 Minutes, at 2,000 mL/hr, Once, On Thu05/25/19 at 2030, For 1 dose 2022 (New Bag - Prov ider: Ruth Still RN)2232 (Stopped - Provider: Ruth Still RN) PRN Medication Order 05/23/2019 05/24/201905/25/2019 iohexoL (OMNIPAQUE-350) 350 mg iodine/mL solution 80 mL 80 mL, Intravenous, Once as needed, pre procedure/treatment, Starting on Thu05/25/19 at 2112, For 1 dose, Procedural Contrast/Med Active Now, Each mL contains 755 mg of iohexol equivalent to 350 mg of organic iodine. documented in this encounter Care Teams Special Agent Secret Service Relationship Specialty Start Date End Date Jennifer Bridges NP [address] [place] [address] 3 [place] [address] [email or web address] PCP - General 12/31/18 Hayley Pandey MD [address] [address] Historical LMR Provider 01/15/19 03/30/21 Chloé Sánchez CNM [address] [place], [place] [phone] Historical LMR Provider 01/15/19 03/30/21 Dayana Galindo MD [address] [place] [address] Historical LMR Provider 01/15/19 03/30/[address] [place] [address] [email or web address] Historical LMR Provider 01/15/19 03/30/21 Cain Morales MD [address] [place] [phone] Historical LMR Provider 01/15/19 2 Kate Leal MD 15 [facility] 102 [place] [address] [email or web address] Historical LMR Provider 01/15/19 03/30/21 Jennifer Bridges NP 60 [facility] 3 [place] [address] [email or web address] Historical LMR Provider 01/15/19 10/31/19 Tari Willams 15 [facility] 201 [place] [address] Historical LMR Provider 01/15/19 2 Kody Ayon MD 60 [facility] 300 [place] [address] Historical LMR Provider 01/15/19 Cynthia Allen CNM [address] [place] [address], [facility] [address] [email or web address] Historical LMR Provider 01/15/19 03/30/21 Tari Urias DO 10 [facility] 200 [place] [address] Historical LMR Provider 01/15/19 10/31/19 Palak Culver CNM 15 [facility] 102 [place] [address] Historical LMR Provider 01/15/19 03/30/21 Damaso Carranza MD [address] [address] Historical LMR Provider 01/15/19 Ian Youssef MD [address] [place] [address] Historical LMR Provider 01/15/19 2 Jc Jacobs MD [address] [place] [address] [email or web address] Historical LMR Provider 01/15/19 03/30/21 Eliz Saleem CNM [address] [place] [address] [email or web address] Historical LMR Provider 01/15/19 03/30/21 documented as of this encounter Additional Source Comments The information contained in this document represents components of the legal health record. It is not the complete legal health record.[facility]
--- OUTSIDE RECORDS SUMMARY | 2023-11-16 12:20 | XMS_ITS | Encounter Summary ---
Author Organization [facility] Address [phone] [place] [address] Care Team Providers Care Cooking Instructor Name Role Phone Jennifer Bridges NP Primary Care Provider Hayley Pandey MD Unavailable + [phone] Chloé Sánchez CNM Unavailable [phone] Dayana Galindo MD Unavailable Ruiz Lewis DO Unavailable Xiomara Cain Morales MD Unavailable Kate Leal MD Unavailable [phone] Jennifer Bridges NP Unavailable [phone] Tari Willams Unavailable [phone] Kody Ayon MD Unavailable [phone] Cynthia Allen CNM Unavailable [phone] Tari Urias DO Unavailable [phone] Palak Culver CNM Unavailable [phone] Damaso Carranza MD Unavailable Ian Youssef MD Unavailable [phone] Jc Jacobs MD Unavailable Eliz Saleem [facility] Unavailable Reason for Visit * Reason Onset Date Comments Follow-up 09/07/2019 Encounter Details Date Type Department Care Team (Late st Contact Info) Description 09/07/[address] [facility] Gynecology Oncology 9 [place] [address] Mari Castano MD [address] [place] [address] [address] [email or web address] Follow-up Social History Tobacco Use Types Packs/Day Years [...] as of this encounter Progress Notes * Marylou Espinoza - 09/07/2019 4:14 PM EDT L/m for pt offering follow up visit with Dr. Castano documented in this encounter Plan of Treatment Not on file documented as of this encounter Visit Diagnoses Not on filedocumented in this encounter Care Teams Cooking Instructor Relationship Specialty Start Date End Date Jennifer Bridges NP [address] [place] [phone] [email or web address] PCP - General 12/31/18 Hayley Pandey MD [address] [place] [address] Historical LMR Provider 01/15/19 03/30/21 Chloé Sánchez CNM 15 [facility] 102 [place] [address] [email or web address] Historical LMR Provider 01/15/19 03/30/21 Dayana Galindo MD 15 [facility] 102 [place] [address] [email or web address] Historical LMR Provider 01/15/19 03/30/[address] [place] [address] [email or web address] Historical LMR Provider 01/15/19 03/30/21 Cain Morales MD [address] [place] [address] 401 [place], [place] [phone] Historical LMR Provider 01/15/19 2 Kate Leal MD [address] [address] [email or web address] Historical LMR Provider 01/15/19 03/30/21 Jennifer Bridges NP [address] [place] [phone] [email or web address] Historical LMR Provider 01/15/19 10/31/19 Tari Willams 15 [facility] 201 [place] [address] Historical LMR Provider 01/15/19 2 Kody Ayon MD [address] [place] [address] 300 [place] [address] Historical LMR Provider 01/15/[address] Allen CNM [address], [facility] [place] [address] Historical LMR Provider 01/15/19 03/30/21 Tari Urias DO [address] [place] [address] 200 [place] [address] [email or web address] Historical LMR Provider 01/15/19 10/31/19 Palak Culver CNM 15 [facility] 102 [place] [address] [email or web address] Historical LMR Provider 01/15/19 03/30/21 Damaso Carranza MD 15 [facility] 102 [place] [address] Historical LMR Provider 01/15/19 Ian Youssef MD [address] [place] [address] 100 [place] [address] Historical LMR Provider 01/15/19 2 Jc Jacobs MD [address] [place] [address] [email or web address] Historical LMR Provider 01/15/19 03/30/21 Eliz Saleem CNM [address] [email or web address], [facility] [place] [address] [email or web address] Historical LMR Provider 01/15/19 03/30/21 documented as of this encounter Additional Source Comments The information contained in this document represents components of the legal health record. It is not the complete legal health record.[facility]
--- OUTSIDE RECORDS SUMMARY | 2023-11-16 12:20 | XMS_ITS | Encounter Summary ---
Author Organization [facility] Address [phone] [facility] [place] [address] Care Team Providers Care Metrology Engineer Name Role Phone Jennifer Bridges NP Primary Care Provider Hayley Pandey MD Unavailable + [phone] Chloé Sánchez CNM Unavailable [phone] Dayana Galindo MD Unavailable Ruiz Lewis DO Unavailable Xiomara Cain Morales MD Unavailable Kate Leal MD Unavailable [phone] Jennifer Bridges NP Unavailable [phone] Tari Willams Unavailable [phone] Kody Ayon MD Unavailable [phone] Cynthia Allen CNM Unavailable [phone] Tari Urias DO Unavailable [phone] Palak Culver CNM Unavailable [phone] Damaso Carranza MD Unavailable Ian Youssef MD Unavailable [phone] Jc Jacobs MD Unavailable Eliz Saleem [facility] Unavailable Encounter Details Date Type Department Care Team (Late st Contact Info) Description 05/18/2019 Documentation [facility] [address] [place] [phone] Areli Vega MD 101 [place] [address] [email or web address] Social History Tobacco Use Types Packs/Day Years [...] as of this encounter Progress Notes * Areli Vega MD - 05/18/2019 9:49 AM EST Gynecologic Oncology Tumor Board Conference? Disease Center Members: Leti Herbert, Mari Castano, Makenna Roblero, Hermann Martinez, Bharti Johnson, Marce Cole, Avel Flores, Comfort May, Areli Vega, Marcia Groves, Vikas Stephenson, Ryan Levy, Vito Hairston, Oni Barrett, Agustín Talley, Nicolas King, Tevin Perry, Neha Hatfield, Bernarda Garcia, Sadiq Moura, Jennifer Reyes, Nina Ybarra, Nilda Hughes, Ruth Alejandro ?Date of Presentation: 05/18/2019 Patient: ?? Marylou Franco ? 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 Patient deferred surgical management as she desired to have a child. She delivered a child in September 2018. On 05/05/2019 she went to the OR for an ex-lap, radical abdominal hyst, BS, upper vaginectomy, bilateral pelvic LND. Intra-op findings were notable for no evidence of disease. Radiologic Findings:?? PET CT 05/02/2019 No FDG avid metastases in the neck, chest, abdomen or pelvis. Primary tumor is not clearly visualized, which could reflect minimal tumor burden or lack of FDG avidity. Uptake in the midline pelvis likely reflects urine in the urethra. ATTESTATION: I, Dr. Verena Louis as teaching physician, have reviewed the images for this case and if necessary edited the report originally created by Dr. Yue Nugent. MRI Pelvis 04/19/2019 No cervical malignancy is identified. This may be related to image noise or small lesion size. ATTESTATION: I, Dr. Kiran Krishna as teaching physician, have reviewed Pathology: Date of Operation: 05/05/2019 Date of Reported: 05/12/2019 10:57 Results To: Marce Cole MD FINAL PATHOLOGIC DIAGNOSIS: A. LYMPH NODE DISSECTION, LEFT PELVIC: ?? There is no evidence of malignancy in seven lymph nodes. B. LYMPH NODE DISSECTION, RIGHT PELVIC: ?? There is no evidence of malignancy in nine lymph nodes. C. UTERUS AND FALLOPIAN TUBES, HYSTERECTOMY AND BILATERAL SALPINGECTOMY AND UPPER VAGINA PARAMETRIUM: ?? Uterus: - Cervix: Hemosiderin deposition consistent with prior surgical site. ?Chronic cervicitis with reactive lymphoid follicle (see note). ?There is no evidence of malignancy. - Endomyometrium: Inactive endometrium ?Vascular changes suggestive of recent (see note). - Serosa: No diagnostic abnormality recognized. Right fallopian tube: No diagnostic abnormality recognized. Left fallopian tube: Tube with [place]ard rest cysts. Note: Multiple levels are examined to better visualize the squamocolumnar junction. Immunostains performed to evaluate the cervical lymphoid infiltrate show a prominent follicle with a germinal center occupied by CD20+, BCL2- B cells (normal pattern). CD21+ follicular dendritic cell meshwork is associated with the follicle. B cells are sparse outside of the follicle. Many CD3+ T cells are scattered in the tissue. the findings are consistent with a reactive lymphoid infiltrate. A training representative slide of endomyometrium was reviewed by Dr. Suraj Acuña. D. LEFT PARAMETRIUM: ?? Fibroadipose tissue and two lymph nodes. There is no evidence of malignancy. Patient Name: MARYLOU SHAFER FINAL PATHOLOGIC DIAGNOSIS: A. ENDOCERVIX, CURETTAGE ([id number], A1; 07/24/2017): Adenocarcinoma in situ. B. ENDOMETRIUM, CURETTAGE ([id number], B1; 07/24/2017): Scant adenocarcinoma in situ. Inactive endometrium. C. CERVIX, CONE EXCISION ([id number], C1-C8; 07/24/2017): 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 Cervical intraepithelial neoplasia 3. NOTE: No definite lymphovascular invasion noted. The adenocarcinoma shows pattern C of invasion. Margins are negative for invasive and in situ carcinoma and for high grade squamous intraepithelial lesion. Selected slides reviewed in consultation with Dr. Hatfield. 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 Tumor Board recommendation: Close clinical follow up This letter reflects the discussion of the Gynecologic Oncology Tumor Board at [facility]. If applicable, cases are reviewed using guidelines from the Society of Gynecologic Oncology (SGO) and/or the National Comprehensive Cancer Center Network (NCCN) and the relevant literature. These recommendations do not take precedence over discussions regarding management between the patient and her primary team.? documented in this encounter Plan of Treatment Not on file documented as of this encounter Visit Diagnoses Not on filedocumented in this encounter Care Teams Metrology Engineer Relationship Specialty Start Date End Date Jennifer Bridges NP [address] [place] [phone] [email or web address] PCP - General 12/31/18 Hayley Pandey MD 15 [facility] 102 [place] [address] [email or web address] Historical LMR Provider 01/15/19 03/30/21 Chloé Sánchez CNM [address] [place] [address] [address] [email or web address] Historical LMR Provider 01/15/19 03/30/21 Dayana Galindo MD [address] [place] [address] [address] [email or web address] Historical LMR Provider 01/15/19 03/30/21 Ruiz [address] DO [address] [place] [address] [email or web address] Historical LMR Provider 01/15/19 03/30/21 Cain Morales MD [address] [place] [address] Historical LMR Provider 01/15/19 2 Kate Leal MD [address] [place] [phone] [email or web address] Historical LMR Provider 01/15/19 03/30/21 Jennifer Brigdes NP [address] [place] [phone] [email or web address] Historical LMR Provider 01/15/19 10/31/19 Tari Willams 15 [facility] 201 [place] [address] Historical LMR Provider 01/15/19 2 Kody Ayon MD [address] [place] [address] 300 [place] [address] Historical LMR Provider 01/15/19 Cynthia Allen CNM [address], [place] [address] Historical LMR Provider 01/15/19 03/30/21 Tari Urias DO [address] [place] [address] 200 [place] [address] Historical LMR Provider 01/15/19 10/31/19 Palak Culver CNM 15 [facility] 102 [place] [address] Historical LMR Provider 01/15/19 03/30/21 Damaso Carranza MD 15 [facility] 102 [place] [address] Historical LMR Provider 01/15/19 Ian Youssef MD [address] [place] [address] 100 [place] [address] Historical LMR Provider 01/15/19 2 Jc Jacobs MD [address] [place] [address] [email or web address] Historical LMR Provider 01/15/19 03/30/21 Eliz Saleem CNM [employer], [place] [address] [email or web address] Historical LMR Provider 01/15/19 03/30/21 documented as of this encounter Additional Source Comments The information contained in this document represents components of the legal health record. It is not the complete legal health record.[facility]
--- OUTSIDE RECORDS SUMMARY | 2023-11-16 12:20 | XMS_ITS | Encounter Summary ---
Author Organization [facility] Address [phone] [facility] [address] Care Team Providers Care Home Improvement Advisor Name Role Phone Jennifer Bridges NP Primary Care Provider Hayley Pandey MD Unavailable + [phone] Chloé Sánchez CNM Unavailable [phone] Dayana Galindo MD Unavailable Ruiz Lewis DO Unavailable Xiomara Cain Morales MD Unavailable Kate Leal MD Unavailable [phone] Jennifer Bridges NP Unavailable [phone] Tari Willams Unavailable [phone] Kody Ayon MD Unavailable [phone] Cynthia Allen CNM Unavailable Tari Urias DO Unavailable [phone] Palak Culver CNM Unavailable [phone] Damaso Carranza MD Unavailable Ian Youssef MD Unavailable [phone] Jc Jacobs MD Unavailable Eliz Saleem [facility] Unavailable [phone] Encounter Details Date Type Department Care Team (Late st Contact Info) Description 05/17/2019 1:00 PM EST Office Visit [facility] Center for Gynecology Oncology [address] [place] [address] [address] [address] Marce Cole MD [address] [place] [address] [email or web address] Cervical cancer, FIGO stage IB1 Social History Tobacco Use Types Packs/Day Years [...] Sign Reading Time Taken Comments Blood Pressure 120/85 05/17/2019 2:03 PM EST Pulse 92 05/17/2019 2:03 PM EST Temperature 37.3 ??C (99.1 ??F) 05/17/2019 2:03 PM ES T Respiratory Rate 16 05/17/2019 2:03 PM EST Oxygen Saturation 100% 05/17/2019 2:03 PM EST Inhaled Oxygen Concentration - - Weight 56.2 kg (124 lb) 05/17/2019 2:03 PM EST Height - - Body Mass Index 25.04 05/11/2019 1:18 PM EST documented in this encounter Progress Notes * Marce Cole MD - 05/17/2019 1:00 PM EST Images from the original note were not included. ?? [facility] [address] [place] [address] P [phone] F [phone] Gynecologic Oncology ? ?Patient: Marylou Shafer ?MR#: [id number] ?: 1990 ?Jennifer Bridges APRN ? ?GYNECOLOGIC ONCOLOGY CLINIC ? FOLLOW UP NOTE ? ?IDENTIFICATION: Marylou Shafer is a dennis 28 y.o.-year-old unspecified para 2 premenopausal female who I am seeing at the request of Dr. Damaso Carranza initially for findings of an invasive adenocarcinoma of the cervix. Presence of the adenocarcinoma was known in 2019, but treatment was deferred in order to have a child. She is now s/p 10/06/2018. Problem List Items Addressed This Visit Other Cervical cancer, FIGO stage IB1 ? ?Marylou Shafer was previously diagnosed with invasive adenocarcinoma of the cervix. In 2018, she underwent a PAP smear which revealed the presence of abnormal tissue. She underwent a cone biopsy which revealed cancer, microscopic IB1, but it seemed to have been wholly removed through the biopsy. An ECC was also conducted which showed precancer cells, AIS, in the upper areas of hercervix. Additional treatment was deferred until after childbearing as she wished to have another child. 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 She is now s/p exploratory laparotomy/HOWARD/BS/upper vaginectomy and pelvic lymphadenectomy on 05/05/2019. She then underwent an exploratory laparotomy and washout on 05/06/2019. On 05/11/2019, she reported to the ED after having leakage of urine from around the catheter when she strains to move her bowels. Her catheter was removed, and she was successfully able to void. She presents today for a postoperative visit and to discuss the results of her pathology. She reports that her arms have been somewhat swollen and sore since her procedure. This has been improving over time. She attributes the swelling and pain to difficulties drawing blood at the time of surgery. Her catheter was removed previously. The surgical glue is still present and she has now recovered well. Her child, Bucky, is now 6 months old. She also has an 11 year old child. 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 She is accompanied by her Oscar, during today's visit. ? ? Past Medical History: Diagnosis Date ??? Adenocarcinoma in situ of cervix ??? Anemia ??? Anxiety and depression ??? Asthma young child ??? Cancer ??? Eye muscle paralysis right eye partial ??? Hypertensive disorder with pregnancies; resolved after births ? Past Surgical History: Procedure Laterality Date ??? CERVIX SURGERY cold knife ??? HYSTERECTOMY ??? UNCODED SURGICAL HISTORY Asthma as child, allergies now ??? UNCODED SURGICAL HISTORY Polydypsia ??? UNCODED SURGICAL HISTORY Cervical Dysplasia, mild; Colposcopy, without biopsy; 10/14/2013; 04/08/2016 - @ [facility] ??? UNCODED SURGICAL HISTORY Abdominal pain [...] surgery; 2005 ??? UNCODED SURGICAL HISTORY Polyuria ? ?POB/TYPER: G unspecified P2 Vaginal ? ? Current Outpatient Medications Medication Sig Dispense Refill Last Dispense ??? acetaminophen (TYLENOL) 325 mg tablet Take 3 tablets (975 mg total) by mouth every 6 (six) hours. 60 tablet 2 Unknown (outside pharmacy) ??? buPROPion (WELLBUTRIN XL) 150 MG ER 24 hr tablet Take 150 mg by mouth daily. For depression Unknown (patient-reported) ??? diphenhydrAMINE (BENADRYL) 25 mg capsule Take 1 capsule (25 mg total) by mouth every 6 (six) hours as needed for itching. 50 capsule 1 Unknown (outside pharmacy) ??? enoxaparin (LOVENOX) 40 mg/0.4 mL Syrg subcutaneous syringe Inject 0.4 mL (40 mg total) under the skin daily for 28 days. 11.2 mL 0 Unknown (outside pharmacy) ??? ibuprofen (ADVIL,MOTRIN) 600 MG tablet Take 1 tablet (600 mg total) by mouth every 6 (six) hours as needed. 60 tablet 2 Unknown (outside pharmacy) ??? norethindrone (MICRONOR) 0.35 mg tablet Take 1 tablet (0.35 mg total) by mouth daily. Micronor 1 tab po QD 28 tablet 6 Unknown (outside pharmacy) ??? oxyCODONE 5 MG immediate release tablet Take 1-2 tablets (5-10 mg total) by mouth every 4 (four) hours as needed for moderate pain. Partial fill ok 15 tablet 0 Unknown (outside pharmacy) ??? 95-iron [id number] ( + DHA) 28 mg iron-800 mcg-200 mg Cmpk Unknown (patient-reported) No current facility-administered medications for this visit. ? ? Allergies Allergen Reactions ??? Cantaloupe Mouth and throat itching ??? Cephalexin Monohydrate ??? Other ragweed ??? Paroxetine Hcl Nausea Only ??? Penicillin ??? Penicillins Rash ??? Sertraline Nausea Only ??? Sulfamethoxazole ??? Trimethoprim ??? Valacyclovir Hcl ? ? Social History Occupational History ??? Not on file Tobacco Use ??? Smoking status: Never Smoker ??? Smokeless tobacco: Never Used Substance and Sexual Activity ??? Alcohol use: Not Currently ??? Drug use: Yes Types: Marijuana Comment: on weekends, last used 05/02/2019 ??? Sexual activity: Not on file ? ? Family History Problem Relation Age of Onset ??? Hypertension Father Hypertension ??? Diabetes mellitus Father Diabetes mellitus ??? Obesity Father Obesity ??? Stroke Father Stroke ??? Asthma Sister Asthma ??? Obesity Sister Obesity ??? Asthma Daughter Asthma ??? Obesity Mother Obesity ??? Thyroid disease Mother Thyroid disorder ? ?On review of systems today, she is doing well overall. Review of Systems Constitutional: negative Card: negative Resp: negative GI: negative : negative Skin: negative Neuro: negative Psych: negative Allergic: negative Heme: negative ?PHYSICAL EXAMINATION: BP 120/85 Pulse 92 Temp 37.3 ??C (99.1 ??F) (Oral) Resp 16 Wt 56.2 kg (124 lb) SpO2 100% BMI 25.04 kg/m?General: Well-appearing and in NAD Alert and oriented x3, interactive HEENT: Oral and mucous membranes are intact without evidence of dehydration or lesions. Sclera are anicteric. ? Respir: CTAB, no wheezes/crackles/rhonchi CV: RRR Abd: Soft, non-distended, non-tender. No R/G, No hernias. [place] were removed. Pelvic: deferred Extr: no edema/cyanosis/clubbing. Skin: No rashes? Please note that a registered nurse joined me in the exam room for the physical exam. Diagnostic Data Reviewed: Imagin05/02/2019 CT A/P: IMPRESSION: No abdominopelvic metastases. 05/02/2019 CT PET Chest: IMPRESSION: Staging of cervical carcinoma 3 mm LEFT upper lobe nodule which is nonspecific. 05/02/2019 CT PET Neck: IMPRESSION: Staging of cervical carcinoma 3 mm LEFT upper lobe nodule which is nonspecific. 04/19/[address] Skull Base to Mid Thighs: Findings: FINDINGS: NECK: Aside from physiologic distribution, no abnormal FDG uptake is seen in the neck. CHEST: Aside from physiologic distribution, no abnormal FDG uptake is seen in the chest. Symmetric bilateral breast uptake consistent with lactating breasts. The subcentimeter pulmonary nodule described on the accompanying CT report does not demonstrate FDGuptake, but is too small for uptake to be reliably quantitated. ABDOMEN & PELVIS: Aside from physiologic distribution of uptake, no abnormal FDG uptake is seen in the abdomen or pelvis. Small focus of uptake in the midline pelvis likely reflects urine in the urethra. MUSCULOSKELETAL: Aside from physiologic distribution of uptake, no abnormal FDG uptake is seen in the proximal extremities. Impression: No FDG avid metastases in the neck, chest, abdomen or pelvis. Primary tumor is not clearly visualized, which could reflect minimal tumor burden or lack of FDG avidity. Uptake in the midline pelvis likely reflects urine in the urethra. 04/19/2019 MRI Pelvis: FINDINGS: Image quality of multiple sequences is degraded by noise. UTERUS: The uterus measures 7 x 3 x 4 cm. ??No uterine masses. Clinically suspected cervical malignancy is not identified which may be due to small lesion size or obscuration related to image noise. ENDOMETRIUM: Normal thickness, measuring 9 mm. OVARIES/ADNEXA: The right ovary measures 2.4 x 2.0 cm. The left ovary measures 2.8 x 2.0 cm. No adnexal mass. No free fluid. BLADDER: ??Bladder is decompressed. RECTUM: ??Rectum and mesorectum are unremarkable. LYMPH NODES: No lymphadenopathy. IMPRESSION: No cervical malignancy is identified. This may be related to image noise or small lesion size. Pathology: 05/05/2019 Surg Path: FINAL PATHOLOGIC DIAGNOSIS: A. LYMPH NODE DISSECTION, [...] are consistent with a reactive lymphoid infiltrate. D. LEFT PARAMETRIUM: ?? Fibroadipose tissue and two lymph nodes. There is no evidence of malignancy. 04/08/2019 Surg Path: FINAL PATHOLOGIC DIAGNOSIS: A. ENDOCERVIX, CURETTAGE ([id number], A1; 07/24/2017): Adenocarcinoma in situ. B. ENDOMETRIUM, CURETTAGE ([id number], B1; 07/24/2017): Scant adenocarcinoma in situ. Inactive endometrium. C. CERVIX, CONE EXCISION ([id number], C1-C8; 07/24/2017): 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 Cervical intraepithelial neoplasia 3. NOTE: No definite lymphovascular invasion noted. The adenocarcinoma shows pattern C of invasion. Margins are negative for invasive and in situ carcinoma and for high grade squamous intraepithelial lesion. Selected slides reviewed in consultation with Dr. Hatfield. ?A/P: Marylou Shafer is a dennis 28 y.o.-year-old who is now s/p exploratory laparotomy/HOWARD/BS/Upper vaginectomy and pelvic lymphadenectomy performed on 05/05/2019 and exploratory laparotomy and washout performed on 05/06/2019 for an invasive endocervical adenocarcinoma of there cervix. She is also s/p on 10/06/2018. She presents today for a postoperative visit. 1. Stage IB1 Invasive carcinoma of the Cervix: We discussed her condition after surgery. 15 clair were removed today. We discussed that the tegaderm caused a severe reaction on her skin. We reviewed the complex surgery and the re-operation. Shehas recovered well. We reviewed restrictions post surgery. She will need to wait at least 3 weeks before lifting her baby and other weights. Otherwise, she may continue her every day activities. We reviewed the results of her pathology, which reveal no residual evidence of malignancy. Discussed that no further therapy for her cancer would be required and that she would need only close follow Q6 months with vaginal exams and pap smears. Follow up will be continued for 3 years. Because it has been 2 years since her cancer was initially found, I was comfortable continuing with 6 month follow ups. Follow up appointments after the surgery may be continued at [facility] for convenience. It is a pleasure being involved in her care. Greater than 50% of this 15 minute interview was spent in direct patient counseling. This [id number] discussion and counseling regarding the significance of her cancer diagnosis, prognosis, treatment options, risks/benefits/side effects of these options, and treatment plan were all separate from the services provided in relation to the patient's post-operative care. These issues and the plan are above and beyond her routine post-operative care and separate from the procedure performed on 05/05/2019. Marce Cole MD [facility] Radha Herrera, am acting as a scribe for Marce Cole for Marylou Shafer on 05/21/19 Marce Herrera, personally evaluated the patient and reviewed the history, physical examination, assessment and plan as documented by Radha Galan, expert medical writer. My significant findings and changes have been incorporated into the note as needed. Consent to use a scribe was obtained prior to thestart of the encounter by clinical staff. Marylou Shafer 05/21/19 documented in this encounter Plan of Treatment Not on file documented as of this encounter Visit Diagnoses Diagnosis Cervical cancer, FIGO stage IB1 documented in this encounter Care Teams Home Improvement Advisor Relationship Specialty Start Date End Date Jennifer Bridges NP [address] [place] [address] 3 [place] [address] [email or web address] PCP - General 12/31/18 Hayley Pandey MD [address] [place] [address] Historical LMR Provider 01/15/19 03/30/21 Chloé Sánchez CNM [address] [place] [address] Historical LMR Provider 01/15/19 03/30/21 Dayana Galindo MD [address] [place] [address] Historical LMR Provider 01/15/19 03/30/[address] [place] [address] [email or web address] Historical LMR Provider 01/15/19 03/30/21 Cain Morales MD [address] [place] [address] Historical LMR Provider 01/15/19 2 Kate Leal MD 15 [facility] 102 [place] [address] [email or web address] Historical LMR Provider 01/15/19 03/30/21 Jennifer Bridges NP 60 [facility] 3 [place] [address] [email or web address] Historical LMR Provider 01/15/19 10/31/19 Tari Willams 15 [facility] 201 [place] [address] Historical LMR Provider 01/15/19 2 Kody Ayon MD 60 [facility] 300 [place] [address] Historical LMR Provider 01/15/19 Cynthia Allen CNM [address] [place] [address], [facility] [place] [address] [email or web address] Historical LMR Provider 01/15/19 03/30/21 Tari Urias DO 10 [facility] 200 [place] [address] Historical LMR Provider 01/15/19 10/31/19 Palak Culver CNM 15 [facility] 102 [place] [address] Historical LMR Provider 01/15/19 03/30/21 Damaso Carranza MD 15 [facility] 102 [place] [address] Historical LMR Provider 01/15/19 Ian Youssef MD [address] [place] [address] Historical LMR Provider 01/15/19 2 Jc Jacobs MD [address] [place] [address] [email or web address] Historical LMR Provider 01/15/19 03/30/21 Eliz Saleem CNM [address] [place] [address] [email or web address] Historical LMR Provider 01/15/19 03/30/21 documented as of this encounter Additional Source Comments The information contained in this document represents components of the legal health record. It is not the complete legal health record.[facility]
--- OUTSIDE RECORDS SUMMARY | 2023-11-16 12:20 | XMS_ITS | Encounter Summary ---
Author Organization [facility] Address [phone] [facility] [place] [address] Care Team Providers Care Manager Program Management Name Role Phone Jennifer Bridges NP Primary Care Provider Hayley Pandey MD Unavailable + [phone] Chloé Sánchez CNM Unavailable [phone] Dayana Galindo MD Unavailable Ruiz Lewis DO Unavailable Xiomara Cain Morales MD Unavailable Kate Leal MD Unavailable [phone] Jennifer Bridges NP Unavailable [phone] Tari Willams Unavailable [phone] Kody Ayon MD Unavailable [phone] Cynthia Allen CNM Unavailable [phone] Tari Urias DO Unavailable [phone] Palak Culver CNM Unavailable [phone] Damaso Carranza MD Unavailable Ian Youssef MD Unavailable [phone] Jc Jacobs MD Unavailable Eliz Saleem CN Unavailable [phone] Encounter Details Date Type Department Care Team (Late st Contact Info) Description 06/10/2019 Orders Only [facility] OPERATOR ONCOLOGY VIRTUAL DEPARTMENT [address] [facility] [place] [phone] Marce Cole MD [address] [place] [address] [email or web address] Social History Tobacco Use Types Packs/Day Years [...] on filedocumented in this encounter Care Teams Manager Program Management Relationship Specialty Start Date End Date Jennifer Bridges NP [address] [place] [phone] [email or web address] PCP - General 12/31/18 Hyaley Pandey MD [address] [place] [address] Historical LMR Provider 01/15/19 03/30/21 Chloé Sánchez CNM [address] [place] [address] [email or web address] Historical LMR Provider 01/15/19 03/30/21 Dayana Galindo MD [address] [place], [place] [address], [place] [address] [email or web address] Historical LMR Provider 01/15/19 03/30/21 Ruiz Lewis DO [address] [place] [address] [email or web address] Historical LMR Provider 01/15/19 03/30/21 Cain Morales MD [address] [place] [address] 401 [place] [address] Historical LMR Provider 01/15/19 2 Kate Leal MD 15 [facility] 102 [place] [address] [email or web address] Historical LMR Provider 01/15/19 03/30/21 Jennifer Bridges, MONICA 60 [facility] 3 [place] [address] [email or web address] Historical LMR Provider 01/15/19 10/31/19 Tari Willams 15 [facility] 201 [place] [address] Historical LMR Provider 01/15/19 2 Kody Ayon MD 60 [facility] 300 [place] [address] Historical LMR Provider 01/15/19 Cynthia Allen CNM [address] [place] [address] Historical LMR Provider 01/15/19 03/30/21 Tari Urias DO [address] [place] [address] Historical LMR Provider 01/15/19 10/31/19 Palak Culver CNM [address] [address] [email or web address] Historical LMR Provider 01/15/19 03/30/21 Damaso Carranza MD [address] [place] [address] [email or web address] Historical LMR Provider 01/15/19 Ian Youssef MD [address] [place] [address] Historical LMR Provider 01/15/19 2 Jc Jacobs MD [address] [place] [place] [address] [email or web address] Historical LMR Provider 01/15/19 03/30/21 El[place] [address] Historical LMR Provider 01/15/19 03/30/21 documented as of this encounter Additional Source Comments The information contained in this document represents components of the legal health record. It is not the complete legal health record.[facility]
--- OUTSIDE RECORDS SUMMARY | 2023-11-16 12:20 | XMS_ITS | Encounter Summary ---
Author Organization [facility] Address [phone] [facility] [place] [address] Care Team Providers Care Pleat Taper Name Role Phone Jennifer Bridges NP Primary Care Provider Hayley Pandey MD Unavailable + [phone] Chloé Sánchez CNM Unavailable [phone] Dayana Galindo MD Unavailable Ruiz Lewis DO Unavailable Xiomara Cain Morales MD Unavailable Kate Leal MD Unavailable [phone] Jennifer Bridges NP Unavailable [phone] Tari Willams Unavailable [phone] Kody Ayon MD Unavailable [phone] Cynthia Allen CNM Unavailable [phone] Tari Urias DO Unavailable [phone] Palak Culver CNM Unavailable [phone] Damaso Carranza MD Unavailable Ian Youssef MD Unavailable [phone] Jc Jacobs MD Unavailable [phone] Eliz Saleem [facility] Unavailable Encounter Details Date Type Department Care Team (Late st Contact Info) Description 05/11/2019 Telephone [facility] [address] [place] [address] Nina Ybarra RN [address] [place] [address] [email or web address] Social History Tobacco Use Types Packs/Day Years [...] of this encounter Progress Notes * Nina Ybarra RN - 05/11/2019 11:38 AM EST Her staples catheter is leaking around the catheter. She is frustrated because she told the team before she left the hospital. Called [facility] [place] and they will do a backfill and will call us if any problems. documented in this encounter Plan of Treatment Not on file documented as of this encounter Visit Diagnoses Not on filedocumented in this encounter Care Teams Pleat Taper Relationship Specialty Start Date End Date Jennifer Bridges NP [address] [place] [address] [phone] [email or web address] PCP - General 12/31/18 Hayley Pandey MD [address] [address] [email or web address] Historical LMR Provider 01/15/19 03/30/21 Chloé Sánchez CNM 15 [facility] 102 [place] [address] [email or web address] Historical LMR Provider 01/15/19 03/30/21 Dayana Galindo MD 15 [facility] 102 [place] [address] [email or web address] Historical LMR Provider 01/15/19 03/30/[address] [place] [address] [place] [address] [email or web address] Historical LMR Provider 01/15/19 03/30/21 Cain Morales MD [address] [place], [place] [id number] Historical LMR Provider 01/15/19 2 Kate Leal MD [address] [place] [id number] [email or web address] Historical LMR Provider 01/15/19 03/30/21 Jennifer Bridges NP [address] [place] [address] 3 [place] [address] [email or web address] Historical LMR Provider 01/15/19 10/31/19 Tari Willams 15 [facility] 201 [place] [address] Historical LMR Provider 01/15/19 2 Kody Ayon MD [address] [place] [address] [address] [place] [address] Historical LMR Provider 01/15/[address], [place] [address] Historical LMR Provider 01/15/19 03/30/21 Tari Urias DO [address] [place] [address] Historical LMR Provider 01/15/19 10/31/19 Palak Culver CNM [address] [address] Historical LMR Provider 01/15/19 03/30/21 Damaso Carranza MD [address] [address] Historical LMR Provider 01/15/19 Ian Youssef MD [address] [place] [address] 100 [place] [address] Historical LMR Provider 01/15/19 2 Jc Jacobs MD [address] [place] [address] [email or web address] Historical LMR Provider 01/15/19 03/30/21 Eliz Saleem CNM [employer], [facility] [place] [address] [email or web address] Historical LMR Provider 01/15/19 03/30/21 documented as of this encounter Additional Source Comments The information contained in this document represents components of the legal health record. It is not the complete legal health record.[facility]
--- OUTSIDE RECORDS SUMMARY | 2023-11-16 12:20 | XMS_ITS | Encounter Summary ---
Author Organization [facility] Address [phone] [facility] [place] [address] Care Team Providers Care Industrial Engineering Analyst Name Role Phone Jennifer Bridges NP Primary Care Provider Hayley Pandey MD Unavailable + [phone] Chloé Sánchez CNM Unavailable [phone] Dayana Galindo MD Unavailable Ruiz Lewis DO Unavailable Xiomara Cain Morales MD Unavailable [phone] Kate Leal MD Unavailable [phone] Jennifer Bridges NP Unavailable [phone] Tari Willams Unavailable [phone] Kody Ayon MD Unavailable [phone] Cynthia Allen CNM Unavailable Tari Urias DO Unavailable [phone] Palak Culver CNM Unavailable [phone] Damaso Carranza MD Unavailable Ian Youssef MD Unavailable [phone] Jc Jacobs MD Unavailable Eliz Saleem [facility] Unavailable [phone] Encounter Details Date Type Department Care Team (Late st Contact Info) Description 10/04/2019 4:30 PM EDT Office Visit [address] [address] Belén Bravo MD [address] [place] [id number] [email or web address] Fatigue, unspecified type (Primary Dx); Adenocarcinoma in situ of cervix; Anxiety and depression; Hair loss; Rash and other nonspecific skin eruption; Dry skin Social History Tobacco Use Types Packs/Day Years [...] Sign Reading Time Taken Comments Blood Pressure 114/70 10/04/2019 4:27 PM EDT Pulse 84 10/04/2019 4:27 PM EDT Temperature 36.4 ??C (97.6 ??F) 10/04/2019 4:27 PM ED T Respiratory Rate - - Oxygen Saturation 98% 10/04/2019 4:27 PM EDT Inhaled Oxygen Concentration - - Weight 52.6 kg (116 lb) 10/04/2019 4:27 PM EDT Height 149.9 cm (4' 11) 10/04/2019 4:27 PM EDT Body Mass Index 23.43 10/04/2019 4:27 PM EDT documented in this encounter Patient Instructions * Patient Instructions* Belén Bravo MD - 10/04/2019 4:30 PM EDT To check labs and to call with results. To try some stronger steroid cream for knees. Continue current medications. Discussed sleep, good hydration, good nutrition and continuing on vitamin. documented in this encounter Progress Notes * Belén Bravo MD - 10/04/2019 4:30 PM EDT Assessment & Plan: 1. Fatigue, unspecified type (Primary) - CBC - TSH with reflex - Basic metabolic panel - C-Reactive Protein - Antinuclear antibody Hep-2 substrate (BRIAN) - FSH - LH 2. Adenocarcinoma in situ of cervix - CBC - TSH with reflex - Basic metabolic panel - C-Reactive Protein - Antinuclear antibody Hep-2 substrate (BRIAN) - FSH - LH 3. Anxiety and depression - CBC - TSH with reflex - Basic metabolic panel - C-Reactive Protein - Antinuclear antibody Hep-2 substrate (BRIAN) - FSH - LH 4. Hair loss - CBC - TSH with reflex - Basic metabolic panel - C-Reactive Protein - Antinuclear antibody Hep-2 substrate (BRIAN) - FSH - LH 5. Rash and other nonspecific skin eruption - CBC - TSH with reflex - Basic metabolic panel - C-Reactive Protein - Antinuclear antibody Hep-2 substrate (BRIAN) - FSH - LH - triamcinolone acetonide 0.1 % cream Dispense: 30 g; Refill: 0 6. Dry skin - CBC - TSH with reflex - Basic metabolic panel - C-Reactive Protein - Antinuclear antibody Hep-2 substrate (BRIAN) - FSH - LH To check labs and to call with results. To try some stronger steroid cream for knees. Faxed in script. Call if not improving, if worsening or if spreading. Consider treatment for redness on cheeks with metronidazole gel. Continue current medications including vitamins. Discussed sleep, good hydration, good nutrition and continuing on vitamin. Will need to follow up with [facility] for pap in the next couple of months. Subjective: HPI Here for sx of fatigue, hair los, feeling run down, skin dry and rash on both knees. H/o invasive adenocarcinoma of the cervix, had hysterectomy at [facility] in April. Took uterus, fallopian tubes, cervix and part of vagina, left ovaries. Had a lot of bleeding at time of surgery but last H+H was normal. Sx started after surgery but were better in June, July, now back and worse. Has 1 year old and 12 year old, both at home with her. Baby still getting up most nights. Pt eating and drinking fluids fine, sleep fine when she can, not much scheduled exercise. Mom has h/o thyroid problems, pt's last TSH was normal. Rash on knees going on for 2 weeks, itchy, no known exposures. Has some chronic redness of both cheeks, going on before other sx. No fever, weight not down. Supposed to f/u with pap every 6mo w/ [facility]. On hold due to coronavirus pandemic, doesn't have next appt in October. Some increased anxiety with pandemic. No vaginal discharge, some urinary urgency but no dysuria or frequency, no blood in urine. Hair coming out all over, not in clumps. Didn't happen a year ago after delivery. Taking PNV. No oral ulcers, fingers not turning white in cold, no swelling in ankles. Does get some night sweats. Review of Systems Constitutional: Positive for fatigue. Negative for activity change, appetite change, fever and unexpected weight change. HENT: Negative for sore throat and trouble swallowing. Eyes: Negative for visual disturbance. Respiratory: Negative for shortness of breath. Cardiovascular: Negative for chest pain. Gastrointestinal: Negative for abdominal pain, constipation, diarrhea and nausea. Endocrine: Negative for cold intolerance, heat intolerance and polydipsia. Genitourinary: Positive for urgency. Negative for frequency and hematuria. Musculoskeletal: Negative for myalgias. Skin: Positive for rash. Allergic/Immunologic: Negative for food allergies. Neurological: Negative for dizziness and headaches. Hematological: Negative for adenopathy. Psychiatric/Behavioral: Positive for sleep disturbance. Negative for dysphoric mood. The patient isnervous/anxious. Vitals: 10/04/19 1627 BP: 114/70 Pulse: 84 Temp: 36.4 ??C (97.6 ??F) SpO2: 98% Objective: Physical Exam Constitutional: She is oriented to person, place, and time. She appears well- developed and well-nourished. No distress. HENT: Nose: Nose normal. Mouth/Throat: Oropharynx is clear and moist. No oropharyngeal exudate. Eyes: Conjunctivae are normal. Neck: Thyromegaly present. Cardiovascular: Normal rate, regular rhythm and normal heart sounds. Pulmonary/Chest: Effort normal and breath sounds normal. Abdominal: Bowel sounds are normal. There is no abdominal tenderness. Musculoskeletal: General: No edema. Lymphadenopathy: She has no cervical adenopathy. Neurological: She is alert and oriented to person, place, and time. Skin: Skin is warm and dry. Rash noted. There is erythema. Papular rash both knees, skin colored, not red/warm/tender, not excoriated Cheeks with some mild red macular/paplar rash, looks like some mild rosacea, not really in butterfly pattern Psychiatric: She has a normal mood and affect. Her behavior is normal. documented in this encounter Plan of Treatment Not on file documented as of this encounter Results * LH (10/19/2019 4:17 PM EDT) LH 7.4 IU/L [facility] Comment: Reference Range: ? Males 1.5-34.6 IU/L Menstruating Females: Follicular Phase 1.9-12.5 IU/L Midcycle Peak 8.7-76.3 IU/L Luteal Phase 0.5-16.9 IU/L <0.1-1.5 IU/L Postmenopausal 15.9-54.0 Blood 10/19/2019 4:17 PM EDT 10/19/2019 4:30 PM EDT Belén Bravo MD LAB BLOOD ORDERABLE S Performing Organization Address City/State/[facility] [place] [address], [facility] [phone] * FSH (10/19/2019 4:17 PM EDT) FSH 11.1 IU/L [facility] Comment: Reference Range: ? Males 1.4-18.1 IU/L Menstruating Females: Follicular phase: 2.5-10.2 IU/L Midcycle: 3.4-33.4 IU/L Luteal phase: 1.5-9.1 IU/L <0.3 IU/L Postmenopausal females: 23.0-116.3 IU/L Blood 10/19/2019 4:17 PM EDT 10/19/2019 4:30 PM EDT Belén Bravo MD LAB BLOOD ORDERABLE S [address] [phone] * ANTINUCLEAR ANTIBODY HEP-2 SUBSTRATE (BRIAN) (10/19/2019 4:17 PM EDT) BRIAN HEp-2, IgG <1:80 <1:80 [facility] BRIAN Interp Comment SEE NOTE [facility] Comment: (NOTE) Antinuclear antibodies by IFA negative [...] not necessarily rule out SARD. Performed By: [facility] [address] [place] [address] Can Slider: Vj Madrigal MD, MS Blood 10/19/2019 4:17 PM EDT 10/19/2019 4:30 PM EDT Belén Bravo MD LAB BLOOD ORDERABLE S [facility] [address] [place] [address] * C-Reactive Protein (10/19/2019 4:17 PM EDT) C REACTIVE PROTEIN <2.9 0 - 3 mg/L [facility] Comment:Results >10.0 mg/L a re suggestive of acute inflammation. Blood 10/19/2019 4:17 PM EDT 10/19/2019 4:30 PM EDT Belén Bravo MD LAB BLOOD ORDERABLE S Performing Organization Address [facility] Co de Phone Number [address] [phone] * (ABNORMAL) Basic metabolic panel (10/19/2019 4:17 PM EDT) SODIUM 138 134 - 146 mmol/L [facility] CHLORIDE 106 96 - 110 mmol/L [facility] POTASSIUM 3.8 3.5 - 5.3 mmol/L [facility] CO2 28 21 - 31 mmol/L [facility] BUN 15 6 - 26 mg/dL [facility] CREATININE 0.79 0.51 - 0.95 mg/dL [facility] GLUCOSE 114(H) 65 - 99 mg/dL [facility] CALCIUM 9.4 8.2 - 10.2 mg/dL [facility] EGFR 101 >59 mL/min/1.7 3m2 [facility] Comment:Estimated glomerular filtration rate calculated using the CKD-EPI equation. ANION GAP 4(L) 5 - 15 mmol/L [facility] Blood 10/19/2019 4:17 PM EDT 10/19/2019 4:30 PM EDT Belén Bravo MD LAB BLOOD ORDERABLE S Performing Organization Address [facility]/ZIP Co de Phone Number [address] [phone] * TSH with reflex (10/19/2019 4:17 PM EDT) SCREENING PANEL: TSH 2.20 0.358 - 3.74 uIU/mL [facility] Blood 10/19/2019 4:17 PM EDT 10/19/2019 4:30 PM EDT Belén Bravo MD LAB BLOOD ORDERABLE S Performing Organization Address [facility] Co de Phone Number [address] [phone] * CBC (10/19/2019 4:17 PM EDT) WBC 5.67 3.9 - 11.0 K/uL [facility] RBC 4.29 3.70 - 5.10 M/uL [facility] HGB 13.9 11.0 - 15.0 g/dL [facility] HCT 41.0 34.0 - 46.0 % [facility] PLT 200 130 - 400 K/uL [facility] MCV 95.6 80.0 - 100.0 fL [facility] MCH 32.4 27.0 - 33.0 pg [facility] MCHC 33.9 31.0 - 36.0 g/dL [facility] RDW 13.6 0.0 - 15.0 % [facility] MPV 10.1 7.0 - 11.0 fl [facility] NRBC 0.00 0 - 0.20 /100 WBCs [facility] ABSOLUTE NRBC 0.00 0 - 0.01 K/uL [facility] Blood 10/19/2019 4:17 PM EDT 10/19/2019 4:29 PM EDT Belén Bravo MD LAB BLOOD ORDERABLE S Performing Organization Address [facility]/ZIP Co de Phone Number [address] [phone] documented in this encounter Visit Diagnoses Diagnosis Fatigue, unspecified type- Primary 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 uteri Anxiety and depression Hair loss Unspecified alopecia Rash and other nonspecific skin eruption Dry skin Other symptoms involving skin and integumentary tissues documented in this encounter Care Teams Industrial Engineering Analyst Relationship Specialty Start Date End Date Jennifer Bridges NP 60 [facility] 3 [place] [address] [email or web address] PCP - General 12/31/18 Hayley Pandey MD [address] [place] [address] [email or web address] Historical LMR Provider 01/15/19 03/30/21 Chloé Sánchez CNM [address] [place] [address] [email or web address] Historical LMR Provider 01/15/19 03/30/21 Dayana Galindo MD [address] [place] [address] [email or web address] Historical LMR Provider 01/15/19 03/30/21 Ruiz Lewis DO [address] [place] [address] [email or web address] Historical LMR Provider 01/15/19 03/30/21 Cain Morales MD [address] [place] [address] Historical LMR Provider 01/15/19 Kate Sandoval MD [address] [place] [address] Historical LMR Provider 01/15/19 03/30/21 Jennifer Bridges NP 60 [facility] [address] [place] [address] [email or web address] Historical LMR Provider 01/15/19 10/31/19 Tari Willams 15 [facility] 201 [place] [address] Historical LMR Provider 01/15/19 2 Kody Ayon MD 60 [facility] [address] [place] [address] Historical LMR Provider 01/15/19 Cynthia Allen CNM [facility] [place] [address] [email or web address] Historical LMR Provider 01/15/19 03/30/21 Tari Urias DO 10 [facility] 200 [place] [address] Historical LMR Provider 01/15/19 10/31/19 Palak Culver CNM 15 [facility] 102 [place] [address] Historical LMR Provider 01/15/19 03/30/21 Damaso Carranza MD 15 [facility] 102 [place] [address] [email or web address] Historical LMR Provider 01/15/19 Ian Youssef MD [address] [place] [address] [address] Historical LMR Provider 01/15/19 2 Jc Jacobs MD [address] [place] [address] [email or web address] Historical LMR Provider 01/15/19 03/30/21 [place] [address] [email or web address] Historical LMR Provider 01/15/19 03/30/21 documented as of this encounter Additional Source Comments The information contained in this document represents components of the legal health record. It is not the complete legal health record.[facility]
--- OUTSIDE RECORDS SUMMARY | 2023-11-16 12:20 | XMS_ITS | Encounter Summary ---
Author Organization [facility] Address [phone] [facility] [place] [address] Care Team Providers Care Web Master Name Role Phone Jennifer Bridges NP Primary Care Provider Hayley Pandey MD Unavailable + [phone] Chloé Sánchez CNM Unavailable [phone] Dayana Galindo MD Unavailable Ruiz Lewis DO Unavailable Xiomara Cain Morales MD Unavailable Kate Leal MD Unavailable [phone] Jennifer Bridges NP Unavailable [phone] Tari Willams Unavailable [phone] Kody Ayon MD Unavailable [phone] Cynthia Allen CNM Unavailable [phone] Tari Urias DO Unavailable [phone] Palak Culver CNM Unavailable [phone] Damaso Carranza MD Unavailable Ian Youssef MD Unavailable [phone] Jc Jacobs MD Unavailable Eliz Saleem [facility] Unavailable Reason for Visit * Reason Comments Post-op Problem Onset of urine leaka ge from Hughes catheter earlier today, yet w/ possibility of longer duration since placement; S/P radical hysterectomy on 05/05; pt denies any further S/S, appears slightly weak/uncomfortable. Encounter Details Date Type Department Care Team (Late st Contact Info) Description 05/11/2019 1:19 PM EST - 05/11/2019 2:40 PM EST Emergency [facility] Emergency Department [address] [place] [id number] Mark Finn MD [address] [place] [phone] [email or web address] Discharge Disposition: Home or Self Care [...] Sign Reading Time Taken Comments Blood Pressure 128/96 05/11/2019 1:18 PM EST Pulse 78 05/11/2019 1:18 PM EST Temperature 37.3 ??C (99.1 ??F) 05/11/2019 1:18 PM ES T Respiratory Rate 12 05/11/2019 1:18 PM EST Oxygen Saturation 99% 05/11/2019 1:18 PM EST Inhaled Oxygen Concentration - - Weight 60.2 kg (132 lb 11.5 oz) 05/11/2019 1:18 PM EST Height 149.9 cm (4' 11) 05/11/2019 1:18 PM EST Body Mass Index 26.81 05/11/2019 1:18 PM EST documented in this encounter Discharge Instructions * Discharge Instructions* Vito Marlow PA-C - 05/11/2019 2:27 PM EST Return immediately to the emergency department if you have any difficulty or inability to void * Attachments The following attachments cannot be sent through Care Everywhere. * Indwelling Urinary Catheter Care: General Info (Frisian) documented in this encounter Medications at Time [...] po QD 28 tablet 6 03/30/2019 10/04/2019 oxyCODONE 5 MG immediate release tablet Take 1-2 tablets (5-10 mg total) by mouth every 4 (four) hours as needed for moderate pain. Partial fill ok 15 tablet 05/10/2019 10/04/2019 95-iron [id number] 28 mg iron-800 mcg-200 mg Cmpk 11/09/2021 documented as of this encounter ED Notes * Mark Finn MD - 05/11/2019 1:55 PM EST ED Course ED Course as of Apr 954 Wed May 11, 2019 5992 Patient was able to void successfully after removal of the Hughes bladder scan post void she was only 15 mL's patient is no acute distress and she wishes to proceed with having the catheter out Ihave instructed her that if she has any recurrent difficulty voiding or inability to void she should return immediately to the ER for replacement of her Hughes catheter [DB] ED Course User Index [DB] Vito Marlow PA-C Clinical Impressions as of Apr Hughes catheter problem, initial encounter Attestation: I have personally seen and examined the patient and reviewed the PA's findings and plan. As necessary, I have appended the note with my suggestions, comments or clarification to their findings and plan in the note above. This is a shared visit with the PA. Mark Finn MD 05/11/19 1355 Mark Finn MD 05/21/19332 * Vito Marlow PA-C - 05/11/2019 1:42 PM EST History Chief Complaint Patient presents with ??? Post-op Problem Onset of urine leakage from Hughes catheter earlier today, yet w/ possibility of longer duration since placement; S/P radical hysterectomy on 05/05; pt denies any further S/S, appears slightly weak/uncomfortable. This is a 28-year-old woman who is approximately 1 week status post radical hysterectomy for cervical CA patient has had a Hughes catheter indwelling since surgery she is here today because she is begun to have leakage of urine from around the catheter specifically when she strains to move her bowels or this a.m. when she attempted to urinate it leaked out around the catheter this was alarming to her so she came here for evaluation. There is a note from Radha and RN at the [facility] [facility] oncology clinic who called with recommendations to instill 250 mL's of normal saline remove the catheter if the patient has bladder control. History provided by: Patient Security Police Officer Used: No Patient Active Problem List Diagnosis ??? Partial third nerve palsy ??? Arnold-Chiari malformation ??? Post-operative state Past Medical History: Diagnosis Date ??? Adenocarcinoma in situ of cervix ??? Anemia ??? Anxiety and depression ??? Asthma young child ??? Cancer ??? Eye muscle paralysis right eye partial ??? Hypertensive disorder with pregnancies; resolved after births Past Surgical History: Procedure Laterality Date ??? CERVIX SURGERY cold knife ??? HYSTERECTOMY ??? UNCODED SURGICAL HISTORY Asthma as child, allergies now ??? UNCODED SURGICAL HISTORY Polydypsia ??? UNCODED SURGICAL HISTORY Cervical Dysplasia, mild; Colposcopy, without biopsy; 10/14/2013; 04/08/2016 - @ [facility] ??? UNCODED SURGICAL HISTORY Abdominal pain [...] surgery; 2005 ??? UNCODED SURGICAL HISTORY Polyuria Family History Problem Relation Age of Onset ??? Hypertension Father Hypertension ??? Diabetes mellitus Father Diabetes mellitus ??? Obesity Father Obesity ??? Stroke Father Stroke ??? Asthma Sister Asthma ??? Obesity Sister Obesity ??? Asthma Daughter Asthma ??? Obesity Mother Obesity ??? Thyroid disease Mother Thyroid disorder Social History Tobacco Use ??? Smoking status: Never Smoker ??? Smokeless tobacco: Never Used Substance Use Topics ??? Alcohol use: Not Currently ??? Drug use: Yes Types: Marijuana Comment: on weekends, last used 05/02/2019 Allergies Allergen Reactions ??? Cantaloupe Mouth and throat itching ??? Cephalexin Monohydrate ??? Other ragweed ??? Paroxetine Hcl Nausea Only ??? Penicillin ??? Penicillins Rash ??? Sertraline Nausea Only ??? Sulfamethoxazole ??? Trimethoprim ??? Valacyclovir Hcl Review of Systems Constitutional: Negative for fever. Gastrointestinal: Negative for diarrhea, nausea and vomiting. Genitourinary: Negative for flank pain and hematuria. Skin: Negative for rash. All other systems reviewed and are negative. Physical Exam BP (!) 128/96 Pulse 78 Temp 37.3 ??C (99.1 ??F) (Oral) Resp 12 Ht 149.9 cm (4' 11) Wt 60.2 kg (132 lb 11.5 oz) SpO2 99% BMI 26.81 kg/m?? Physical Exam Constitutional: She is oriented to person, place, and time. She appears well- developed and well-nourished. HENT: Head: Normocephalic and atraumatic. Right Ear: External ear normal. Left Ear: External ear normal. Eyes: Conjunctivae are normal. Neck: Neck supple. Cardiovascular: Normal rate and regular rhythm. Pulmonary/Chest: Effort normal. Abdominal: Soft. She exhibits no distension. Midline incision is intact with clair there is no signs of dehiscence or infection Neurological: She is alert and oriented to person, place, and time. Skin: Skin is warm and dry. Psychiatric: She has a normal mood and affect. Vitals reviewed. ED Course No consults were ordered. If consults were ordered, refer to the consult documentation for additional information. ED Course as of May 11 1426 Wed May 11, 2019 142 Patient was able to void successfully after removal of the Hughes bladder scan post void she was only 15 mL's patient is no acute distress and she wishes to proceed with having the catheter out Ihave instructed her that if she has any recurrent difficulty voiding or inability to void she should return immediately to the ER for replacement of her Hughes catheter [DB] ED Course User Index [DB] Vito Marlow PA-C Clinical Impressions as of May 11 1426 Hughes catheter problem, initial encounter MDM Clinical Impression Final diagnoses: Hughes catheter problem, initial encounter Vito Marlow PA-C 05/11/191426 documented in this encounter Plan of Treatment Not on file documented as of this encounter Visit Diagnoses Diagnosis Hughes catheter problem, initial encounter- Primary documented in this encounter Care Teams Web Master Relationship Specialty Start Date End Date Jennifer Bridges NP [address] [place] [phone] [email or web address] PCP - General 12/31/18 Hayley Pandey MD [address] [place] [address] [email or web address] Historical LMR Provider 01/15/19 03/30/21 Chloé Sánchez CN [address] [place] [address] [email or web address] Historical LMR Provider 01/15/19 03/30/21 Dayana Galindo MD [address] [place] [address] [email or web address] Historical LMR Provider 01/15/19 03/30/21 Ruiz [address] [place] [address] [email or web address] Historical LMR Provider 01/15/19 03/30/21 Cain Morales MD [address] [place] [address] Historical LMR Provider 01/15/19 2 Kate Leal MD [address] [place] [id number] [email or web address] Historical LMR Provider 01/15/19 03/30/21 Jennifer Bridges NP [address] [place] [phone] Historical LMR Provider 01/15/19 10/31/19 Tari Willams 15 [facility] [address] [place] [address] Historical LMR Provider 01/15/19 2 Kody Ayon MD [address] [place] [address] [address] [place] [address] Historical LMR Provider 01/15/19 Cynthia Allen [place] [address] Historical LMR Provider 01/15/19 03/30/21 Tari Urias DO [address] [place] [address] [address] [place] [address] Historical LMR Provider 01/15/19 10/31/19 Palak Culver CNM 15 [facility] [address] [place] [address] Historical LMR Provider 01/15/19 03/30/21 Damaso Carranza MD 15 [facility] [address] [place] [address] Historical LMR Provider 01/15/19 Ian Youssef MD [address] [place] [address] [address] [place] [address] Historical LMR Provider 01/15/19 2 Jc Jacobs MD [address] [place] [phone] [email or web address] Historical LMR Provider 01/15/19 03/30/21 Eliz Saleem CNM [address], [place] [address] [email or web address] Historical LMR Provider 01/15/19 03/30/21 documented as of this encounter Additional Source Comments The information contained in this document represents components of the legal health record. It is not the complete legal health record.[facility]
--- OUTSIDE RECORDS SUMMARY | 2023-11-16 12:21 | XMS_ITS | Encounter Summary ---
Author Organization [facility] Address [phone] [facility] [place] [address] Care Team Providers Care Catalyst Manufacturing Operator Name Role Phone Jennifer Bridges NP Primary Care Provider Hayley Pandey MD Unavailable + [phone] Chloé Sánchez CNM Unavailable [phone] Dayana Galindo MD Unavailable Ruiz Lewis DO Unavailable Xiomara Cain Morales MD Unavailable Kate Leal MD Unavailable [phone] Jennifer Bridges NP Unavailable [phone] Tari Willams Unavailable [phone] Kody Ayon MD Unavailable [phone] Cynthia Allen CNM Unavailable [phone] Tari Urias DO Unavailable [phone] Palak Culver CNM Unavailable [phone] Damaso Carranza MD Unavailable Ian Youssef MD Unavailable [phone] Jc Jacobs MD Unavailable Eliz Saleem [facility] Unavailable Reason for Visit * Auth/Cert Specialty Diagnoses / Procedures Referred By Theresa t Referred To Contact Diagnoses 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] Procedures MT RADICAL ABD HYSTEREC+PELV NODES MT REMOVE PELVIS LYMPH NODES HYSTERECTOMY RADICAL LYMPHADENECTOMY PELVIC Referral ID Status Reason Start Date Expiration Date Visits Re quested Visits Authorized [id number] 1 1 Encounter Details Date Type Department Care Team (Late st Contact Info) Description 05/06/2019 3:53 AM EST Anesthesia Event [facility] [address] [place] [address] Jabari Guerrero MD [address] [place] [email or web address] Mich Sauceda MD, BERNARD Anesthesia Record Procedure Summary Procedure Name Responsible Anesthesiologist Anesthesia Start Time Anesthesia Stop Time EXPLORATORY LAPAROTOMY & WASHOUT Jabari Guerrero MD 05/06/19 0353 05/06/19 0653 Events Date Time Event Comment 05/06/2019 0353 In Room 0353 An Start 0359 An Start Data 0400 0419 An Induction 0422 An Intubation 0424 An Induction complet 0427 Incision 0441 Central Line 0559 Procedure End 0623 [facility] Anesthesia Transport 0624 an stop data 0625 Out of Room 0652 Post Op Handoff 0653 An Stop Meds Name Total midazolam 1mg/ml 2 mg succinylcholine 20mg/ml 60 mg rocuronium 30 mg phenylephrine (SHERRY-SYNEPHRINE) infusion bag 3,380 mcg ceFAZolin 2 g calcium chloride (10%) 1,300 mg HYDROmorphone (PF) 10 mcg/mL bupivacaine 1 mg/mL (0.1%) in NS (100 mL) PCEA (Premix CMPD) 8 mL etomidate 2 mg/mL 20 mg EPINEPHrine (ADRENALIN) syringe 10 mcg/m L 30 mcg phenylephrine syringe 80 mcg/mL (5 mL) 4 00 mcg propofol (DIPRIVAN) infusion 50 mg propofol 210.63 mg fentaNYL 100 mcg Lactated ringers 2,000 mL albumin 5% 250 mL * Agents Name Sevoflurane insp CO2 insp N2O exp O2 exp N2O N2O insp Air Sevoflurane exp O2 Flow (fresh gas) * Blood No blood administrations on file. Lines, Drains, and Airways Type Details Placement Removal Wound 05/05/19; Incision; Medial, Lower, Other (comment) (vertical); Abdomen 05/05/19 0000 by Estela Plummer RN Urinary Catheter 05/05/19; Two-way 05/05/19 0000 by Estela Plummer RN 05/17/19 1529 by Discharge Provider, Automatic Epidural Cath Placement Date: 05/05/19; Placement Time: 0942; Placment Location: Thoracic; Tolerance: Tolerated well; Removal Date: 05/09/19; Removal Time: 0930; Insertion Attempts: 1 05/05/19 0942 by Vane Mejia CRNA 05/09/19 0930 by Areli Woodruff RN Peripheral IV Placement Date: 05/05/19; Placement Time: 0953; Size: 20 G; Orientation: Right, Anterior; Location: Hand; Site Prep: Alcohol; Local Anesthetic: Injectable; Attempts: 1; Patient Tolerance: Tolerated well; Removal Date: 05/07/19; Removal Reason: Pain 05/05/19 0953 by Serina Lopez NP 05/07/19 0000 by Christi Sawyer RN Peripheral IV Placement Date: 05/05/19; Placement Time: 0953; Orientation: Left, Anterior; Location: Hand; Site Prep: Alcohol; Attempts: 1; Removal Date: 05/07/19; Removal Reason: Pain 05/05/19 0953 by Serina Lopez, MONICA 05/07/19 0000 by Christi Sawyer RN Closed/Suction Drain 05/06/19; 1; 19 CHAI KE DRAIN ; Bulb; 19 Fr.; Abdomen 05/06/19 0000 by Jennifer Bradley RN 05/06/19 0800 by Geeta Sarabia FNP Peripheral IV Placement Date: 05/06/19; Inserted by Other: In OR; Size: 18 G; Orientation: Right; Location: Foot; Removal Date: 05/07/19; Removal Time: 0730; Removal Reason: End of therapy 05/06/19 0000 by Geeta Sarabia FNP 05/07/19 0730 by Geeta Sarabia FNP Arterial Line Placement Date: 05/06/19; Placement Time: 0200; Catheter Size: 20; Orientation: Left; Location Radial; Local Anesthetic: Injectable; Insertion Attempts: 1; Securement: Taped, Skin barrier; Tolerance: Tolerated well; Removal Date: 05/07/19; Removal Time: 1000; Removal Reason: Per order 05/06/19 0200 by Vane Danielle RN 05/07/19 1000 by Geeta Sarabia FNP Peripheral IV Placement Date: 05/06/19; Placement Time: 0409; Inserted by Other: Anesthesia MD; Size: 16 G; Orientation: Left; Location: Saphenous; Site Prep: Chlorhexidine ; Local Anesthetic: Injectable; Attempts: 1; Patient Tolerance: Tolerated well; Guidance: Ultrasound; Removal Date: 05/06/19; Removal Time: 1923; Removal Reason: Other (Comment) 05/06/19 0409 by Mich Sauceda MD, BERNARD 05/06/19 1923 by Christi Sawyer RN ETT Placement Date: 05/06/19; Placement Time: 0422; Removal Date: 05/06/19; Removal Time: 1347; Extubation Type: Intentional 05/06/19 0422 by Mich Sauceda MD, BERNARD 05/06/19 1347 by Julienne Burrell RRT Double Lumen Sheath Placement Date: 05/06/19; Placement Time: 0441; Orientation: Right; Removal Date: 05/07/19; Removal Time: 1507 05/06/19 0441 by Mich Sauceda MD, BERNARD 05/07/19 1507 by Geeta Sarabia FNP Closed/Suction Drain 05/06/19; 0534; 1; bard drain ; Bulb; 19 Fr.; Right, Lateral; Abdomen 05/06/19 0534 by Jennifer Bradley RN 05/10/19 1203 by Valeria Hunter RN documented in this encounter Social History Tobacco Use Types Packs/Day Years [...] as of this encounter Progress Notes * Vera Valle MD - 05/06/2019 7:50 AM EST Addendum created 05/06/19 0750 by Vera Valle MD Intraprocedure Meds edited documented in this encounter Procedure Notes * Mich Sauceda MD, BERNARD - 05/06/2019 5:10 AM ESTAssociated Order(s): Central Line Central Line Placement Procedure Note: Start time: 05/06/2019 4:41 AM Anesthesiologist: Jabari Guerrero MD Fellow/Resident/MODEL AND PATTERN SUPERVISOR: Vera Valle MD Performed: fellow/resident/MODEL AND PATTERN SUPERVISOR [place] Protocol performed: consent obtained, patient identified with 2 identifiers, correct procedure verified, correct site and laterality confirmed, verified equipment, coagulation status reviewed and implant history reviewed. . Indication: Indication: hemodynamic monitoring and vascular access. Central line Checklist: emergency line placement? no timeout performed? yes hand hygiene performed prior to central venous catheter insertion? yes procedure site disinfected per protocol? yes site allowed to dry for 30 seconds? yes personal protection worn? yes real estate assistant followed standard precautions? yes sterile technique used to drape from head to toe? yes sterile field maintained during procedure? yes guidewires and dilators removed? yes line flushed and capped before removal of drapes? yes dressing applied to site? yes break in sterile procedure? no. Technique: Technique: live ultrasound Number of Attempts: 1 Venous verification: non-pulsatile flow and wire visualized in vein by ultrasound Procedure details: Location: right internal jugular Skin prep: chloraprep Central venous catheter type: MAC introducer Coating type: uncoated Ultrasound: Ultrasound image: not saved Ultrasound visualization: good and [id number] Post Procedure: Post Procedure:blood removed, dressing applied, chlorhexidine patch applied and line sutured Assessment/Verification: free fluid flow and blood return through port Complications?: No * Mich Sauceda MD, BERNARD - 05/06/2019 5:09 AM ESTAssociated Order(s): Airway Placement Airway Placement Procedure Note: Patient was not difficult to intubate. Procedure performed by: fellow/resident/MODEL AND PATTERN SUPERVISOR Anesthesiologist: Jabari Guerrero MD Fellow/Resident/MODEL AND PATTERN SUPERVISOR: Vera Valle MD Airway procedure initiated at:05/06/2019 4:22 AM and ended at. Mask Ventilation: Quality: not attempted Airway Placement: Technique: direct laryngoscopy Rapid sequence induction: yes Details: Blade type: Mac Blade size: 3 Direct view: grade 1 ETT type: cuffed ETT size: 7.0 ETT depth at teeth: 21 ETT cuff inflation volume: 6 Tube position confirmed by: EtCO2 and bilateral breath sounds Outcomes: Evidence of dental injury? no Complications observed? no Extubation Notes: documented in this encounter OR Notes * Anesthesia Postprocedure Evaluation - Vera Valle MD - 05/06/2019 6:53 AM EST Anesthesia Post Operative Note Anesthesia Type: general Patient evaluated in: ICU Consciousness: sedated Airway/ Respiratory Status: Airway Adjuncts: intubated. Respiratory Status: no airway complications. Supplemental O2: vent support Nausea/ Vomiting: Nausea and vomiting control satisfactory Hydration Status: adequate Analgesia/ Pain: Pain control is: adequate Vital Signs: Post-procedure vital signs reviewed Epidural/ Spinal/ Regional Block: Regional Anesthesia Type: epidural Other: Patient experienced no anesthesia complications. PACU Discharge Disposition: Planned ICU Entered by: Vera Valle MD Vital Signs: Vitals Value Taken Time BP Temp 36.8 ??C (98.3 ??F) 05/06/2019 6:39 AM Pulse 66 05/06/2019 6:52 AM Resp 16 05/06/2019 6:52 AM SpO2 100 % 05/06/2019 6:52 AM Art BP 1 161/87 05/06/2019 6:18 AM Vitals shown include unvalidated device data. * Anesthesia Preprocedure Evaluation - Mich Sauceda MD, BERNARD - 05/06/2019 5:05 AM EST Patient: Marylou Shafer Date of Surgery: 05/06/2019 Procedure: EXPLORATORY LAPAROTOMY & WASHOUT (N/A ) Surgeon(s): Marce Cole MD Relevant Problems No relevant active problems General: Patient snapshot reviewed. 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 She was found to be profoundly hypotensive and anemic and was thus brought to the OR for emergent ex-lap. 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 No date: Hypertensive disorder Comment: with pregnancies; resolved after births - Past Surgical History: No date: CERVIX SURGERY Comment: cold knife No date: UNCODED SURGICAL HISTORY Comment: Asthma as child, allergies now No date: UNCODED SURGICAL HISTORY Comment: Polydypsia No date: UNCODED SURGICAL HISTORY Comment: Cervical Dysplasia, mild; Colposcopy, without biopsy; 10/14/2013; 04/08/2016 - @ [facility] No date: UNCODED SURGICAL HISTORY Comment: Abdominal pain No date: UNCODED SURGICAL HISTORY Comment: Blood glucose abnormal finding No date: UNCODED SURGICAL HISTORY Comment: Pre-eclampsia No date: UNCODED SURGICAL HISTORY Comment: Cervicitis/ endocervicitis No date: UNCODED SURGICAL HISTORY Comment: Vaginal candidiasis No date: UNCODED SURGICAL HISTORY Comment: Arnold-chiari decompression; 2005 No date: UNCODED SURGICAL HISTORY Comment: ; ; Pre-echlampsia w/SF on Mag, pre term labor No date: UNCODED SURGICAL HISTORY Comment: Malaise/ fatigue No date: UNCODED SURGICAL HISTORY Comment: ; ; 10/06/2018 No date: UNCODED SURGICAL HISTORY Comment: HPV No date: UNCODED SURGICAL HISTORY Comment: 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; 2006 No date: UNCODED SURGICAL HISTORY Comment: Polyuria - Prior Anesthetics: Previous Anesthesia Records Displaying the 20 most recent anesthesia records Date Procedure Department 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 Neck ROM is full. Mouth opening: normal. TM distance: short. Dental: No notable dental hx. Cardiovascular: The cardiovascular exam is normal. Pulmonary: The pulmonary exam is normal. Neurological: (+) sedated Vital Signs (imported from record): BP (!) 75/45 Pulse 72 Temp 37.2 ??C (98.9 ??F) (Temporal) Resp 14 Ht 149.9 cm (4' 11) Wt59 kg (130 lb) SpO2 99% Yes BMI 26.26 kg/m?? - Lab Results (imported from record): CBC: Lab Results Component Value Date WBC 7.70 05/06/2019 RBC 3.27 (L) 05/06/2019 HGB 10.1 (L) 05/06/2019 HCT 30.0 (L) 05/06/2019 PLT 62 (L) 05/06/2019 MCV 91.7 05/06/2019 MCH 30.9 05/06/2019 MCHC 33.7 05/06/2019 RDW 13.5 05/06/2019 MVP 10.3 05/06/2019 NRBC 0.00 05/06/2019 NRBCA 0.00 05/06/2019 - BMP: Lab Results Component Value Date NA 142 05/06/2019 K 4.2 05/06/2019 CL 108 05/06/2019 CO2 21 (L) 05/06/2019 BUN 10 05/06/2019 CRE 0.68 05/06/2019 GLU 157 (H) 05/06/2019 CA 8.8 05/06/2019 GFR 119 05/06/2019 ANION 13 05/06/2019 - Type and Screen: Lab Results Component Value Date ABO A 05/05/2019 RHTYPE Positive 05/05/2019 ABSCRN Negative 05/05/2019 - COAGS: Lab Results Component Value Date PT 23.8 (H) 05/06/2019 INR 2.1 (H) 05/06/2019 PTT 40.2 (H) 05/06/2019 FIB 118 (L) 05/06/2019 - Anesthesia Assessment and Plan ASA physical status: 2E Anesthesia assessment: Marylou Shafer is a 28 y.o. female whose PMHx is described above. We will proceed with emergent ex-lap. Primary anesthetic: general Induction type: rapid sequence Airway: The plan for the airway is: ETT. Monitoring/Lines: The plan for monitoring and lines is: standard monitor. Post-op destination/disposition: intubation and ICU Informed Consent: Unable to obtain consent: Reason unable to obtain consent: emergency. documented in this encounter Plan of Treatment Not on file documented as of this encounter Procedures Procedure Name Priority Date/Time Associated Diagnosis Comments ANES DOUBLE LUMEN SHEATH - CENTRAL LINE Routine 05/06/2019 5:10 AM EST MT INSERT NON-TUNNEL CV CAT PERF Routine 05/06/2019 5:10 AM EST AIRWAY PLACEMENT Routine 05/06/2019 5:09 AM EST documented in this encounter Results * MT INSERT NON-TUNNEL CV CAT PERF, ANES DOUBLE LUMEN SHEATH - CENTRAL LINE (05/06/2019 5:10 AM EST) Narrative Mich Sauceda MD, BERNARD - 05/06/2019 5:10 AM EST Mich Sauceda MD, BERNARD ? 05/06/2019 ??5:11 AM Central Line Placement Procedure Note: Start time: 05/06/2019 4:41 AM Anesthesiologist: Jabari Guerrero MD Fellow/Resident/MODEL AND PATTERN SUPERVISOR: Vera Valle MD Performed: fellow/resident/MODEL AND PATTERN SUPERVISOR [place] Protocol performed: consent obtained, patient identified with 2 identifiers, correct procedure verified, correct site and laterality confirmed, verified equipment, coagulation status reviewed and implant history reviewed. . Indication: Indication: hemodynamic monitoring and vascular access. Central line Checklist: emergency line placement? no timeout performed? yes hand hygiene performed prior to central venous catheter insertion? yes procedure site disinfected per protocol? yes site allowed to dry for 30 seconds? yes personal protection worn? yes real estate assistant followed standard precautions? yes sterile technique used to drape from head to toe? yes sterile field maintained during procedure? yes guidewires and dilators removed? yes line flushed and capped before removal of drapes? yes dressing applied to site? yes break in sterile procedure? no. Technique: Technique: live ultrasound Number of Attempts: 1 Venous verification: non-pulsatile flow and wire visualized in vein by ultrasound Procedure details: Location: right internal jugular Skin prep: chloraprep Central venous catheter type: ??MAC introducer Coating type: uncoated Ultrasound: Ultrasound image: not saved Ultrasound visualization: good and [id number] Post Procedure: Post Procedure:blood removed, dressing applied, chlorhexidine patch applied and line sutured Assessment/Verification: free fluid flow and blood return through port Complications?: No Jabari Guerrero MD MT ANESTHESIA * ANES ETT DOUBLE LUMEN - AIRWAY LDA (05/06/2019 5:09 AM EST) Mich Clark MD, BERNARD - 05/06/2019 5:09 AM EST Mich Sauceda MD, BERNARD ? 05/06/2019 ??5:10 AM Airway Placement Procedure Note: Patient was not difficult to intubate. Procedure performed by: fellow/resident/MODEL AND PATTERN SUPERVISOR Anesthesiologist: Jabari Guerrero MD Fellow/Resident/MODEL AND PATTERN SUPERVISOR: Vera Valle MD Airway procedure initiated at:05/06/2019 4:22 AM and ended at. Mask Ventilation: Quality: not attempted Airway Placement: Technique: direct laryngoscopy Rapid sequence induction: yes Details: Blade type: Mac Blade size: 3 Direct view: grade 1 ETT type: cuffed ETT size: 7.0 ETT depth at teeth: 21 ETT cuff inflation volume: 6 Tube position confirmed by: EtCO2 and bilateral breath sounds Outcomes: Evidence of dental injury? no Complications observed? no Extubation Notes: Jabari Guerrero MD MT ANESTHESIA documented in this encounter Visit Diagnoses Not on filedocumented in this encounter Administered Medications Inactive Administered Medications - up to 3 most recent administrations Medication Order MAR Action Action Date Dose Rate Site albumin human 5% bottle Continuous PRN, Starting on Thu05/06/19 at 0527, Anesthesia Intra-op New Bag 05/06/2019 5:27 AM EST calcium chloride IV syringe As needed, Starting on Thu05/06/19 at 0457, Anesthesia Intra-op Given 05/06/2019 5:27 AM EST 300 mg Given 05/06/2019 5:00 AM EST 500 mg Given 05/06/2019 4:57 AM EST 500 mg ceFAZolin (ANCEF) injection As needed, Starting on Thu05/06/19 at 0447, Anesthesia Intra-op Given 05/06/2019 4:47 AM EST 2 g EPINEPHrine (ADRENALIN) 10 mcg/mL in NS injection syringe As needed, Starting on Thu05/06/19 at 0428, Anesthesia Intra-op Given 05/06/2019 4:28 AM EST 30 mcg etomidate (AMIDATE) injection As needed, Starting on Thu05/06/19 at 0419, Anesthesia Intra-op Given 05/06/2019 4:19 AM EST 20 mg fentaNYL (PF) (SUBLIMAZE) injection As needed, Starting on Thu05/06/19 at 0619, Anesthesia Intra-op Given 05/06/2019 6:19 AM EST 100 mcg HYDROmorphone (PF) 10 mcg/mL bupivacaine 1 mg/mL (0.1%) in NS (100 mL) PCEA (Premix CMPD) Epidural, Continuous, Starting on Consuelo 05/05/19 at 1915, Recovery & Post-op, Epidural for PCEA? Yes, Continuous Rate: 4 mL/hr, PCEA patient bolus dose: 2 mL, Lockout Interval: 20 min, One hour dose limit: [calculation = continuous rate + 3x demand dose]: 10 mL New Bag 05/08/2019 12:52 AM EST 4 mL/hr 4 mL/hr New Bag 05/07/2019 4:17 AM EST New Bag 05/06/2019 9:06 AM EST 6 mL/hr 6 mL/hr lactated Ringers infusion Continuous PRN, Starting on Thu05/06/19 at 0353, Anesthesia Intra-op New Bag 05/06/2019 3:53 AM EST midazolam (PF) (VERSED) injection Soln As needed, Starting on Thu05/06/19 at 0447, Anesthesia Intra-op Given 05/06/2019 4:47 AM EST 2 mg phenylephrine (SHERRY-SYNEPHRINE) infusion bag 0-300 mcg/min (0-225 mL/hr), Intravenous, Continuous, Starting on Thu05/06/19 at 0215, Is the RN allowed to titrate this medication with the following parameters listed below? Yes, Titration parameter(s): MAP (mmHg), Titrate to this value based on the above chosen parameter(s) (Enter a number): > 60, Start infusion at this rate: 30 mcg/min, May titrate dose at increments of ___ every 5 min to achieve defined parameter above: 10 mcg/min Restarted 05/06/2019 5:53 AM EST 30 mcg/min 22.5 mL/hr Restarted 05/06/2019 5:23 AM EST 30 mcg/min 22.5 mL/hr Rate/Dose Change 05/06/2019 5:12 AM EST 30 mcg/min 22.5 mL /hr phenylephrine (SHERRY-SYNEPHRINE) injection syringe As needed, Starting on Thu05/06/19 at 0419, Anesthesia Intra-op Given 05/06/2019 4:19 AM EST 400 mcg propofol (DIPRIVAN) infusion Continuous PRN, Starting on Thu05/06/19 at 0554, Anesthesia Intra-op Rate/Dose Change 05/06/2019 6:14 AM EST 70 mcg/kg/min 24.8 mL/hr Rate/Dose Change 05/06/2019 6:02 AM EST 50 mcg/kg/min 17.7 mL/hr New Bag 05/06/2019 5:54 AM EST 30 mcg/kg/min 10.6 mL/hr propofol (DIPRIVAN) infusion 0-83 mcg/kg/min ? 59 kg (0-29.382 mL/hr, rounded to 0-29.4 mL/hr), Intravenous, Continuous, Starting on Thu05/06/19 at 0745, Is the RN allowed to titrate this medication with the following parameters listed below? Yes, Titrate dose to patient ventilator synchrony and/or chosen parameter(s): RASS 0 to -1, Start infusion at this rate: 10 mcg/kg/min, May titrate dose at increments of ___ every 5 min to achieve defined parameter above: 5 mcg/kg/min New Bag 05/06/2019 1:06 PM EST 20 mcg/kg/min 7.1 mL/hr Rate/Dose Change 05/06/2019 12:59 PM EST 20 mcg/kg/min 7.1 mL/hr Rate/Dose Verify 05/06/2019 11:59 AM EST 30 mcg/kg/min 10. 6 mL/hr rocuronium (ZEMURON) injection Intravenous, As needed, Starting on Thu05/06/19 at 0427, Anesthesia Intra-op Given 05/06/2019 4:27 AM EST 30 mg succinylcholine (ANECTINE) 20 mg/mL injection As needed, Starting on Thu05/06/19 at 0419, Anesthesia Intra-op Given 05/06/2019 4:19 AM EST 60 mg documented in this encounter Care Teams Catalyst Manufacturing Operator Relationship Specialty Start Date End Date Jennifer Bridges NP [address] [place] [address] 3 [place] [address] [email or web address] PCP - General 12/31/18 Hayley Pandey MD [address] [address] [email or web address] Historical LMR Provider 01/15/19 03/30/21 Chloé Sánchez CNM [address] [place] [address] Historical LMR Provider 01/15/19 03/30/21 Dayana Galindo MD [address] [address] Historical LMR Provider 01/15/19 03/30/21 Ruiz Lewis DO [address] [place] [address] [email or web address] Historical LMR Provider 01/15/19 03/30/21 Cain Morales MD 10 [facility] [address] [place] [address] Historical LMR Provider 01/15/19 2 Kate Leal MD 15 [facility] [address] [place] [address] [email or web address] Historical LMR Provider 01/15/19 03/30/21 Jennifer Bridges NP 60 [facility] 3 [place] [address] [email or web address] Historical LMR Provider 01/15/19 10/31/19 Tari Willams 15 [facility] [address] [place] [address] Historical LMR Provider 01/15/19 2 Kody Ayon MD [address] [place] [address] 300 [place] [address] Historical LMR Provider 01/15/19 Cynthia Allen CNM [address] [place] [address], [facility] [place] [address] Historical LMR Provider 01/15/19 03/30/21 Tari Urias DO 10 [facility] [address] [place] [address] Historical LMR Provider 01/15/19 10/31/19 Palak Culver CNM [address] [address] [email or web address] Historical LMR Provider 01/15/19 03/30/21 Damaso Carranza MD [address] [address] Historical LMR Provider 01/15/19 Ian Youssef MD [address] [place] [address] Historical LMR Provider 01/15/19 2 Jc Jacobs MD [address] [place] [address] [email or web address] Historical LMR Provider 01/15/19 03/30/21 Eliz Saleem CNM [address] [place] [address] [email or web address] Historical LMR Provider 01/15/19 03/30/21 documented as of this encounter Additional Source Comments The information contained in this document represents components of the legal health record. It is not the complete legal health record.[facility]
--- OUTSIDE RECORDS SUMMARY | 2023-11-16 12:21 | XMS_ITS | Encounter Summary ---
Author Organization [facility] Address [phone] [facility] [employer] [place] [address] Care Team Providers Care Steam Train Driver Name Role Phone Jennifer Bridges NP Primary Care Provider Hayley Pandey MD Unavailable + [phone] Chloé Sánchez CNM Unavailable [phone] Dayana Galindo MD Unavailable Ruiz Lewis DO Unavailable Xiomara Cain Morales MD Unavailable Kate Leal MD Unavailable [phone] Jennifer Bridges NP Unavailable [phone] Tari Willams Unavailable [phone] Kody Ayon MD Unavailable [phone] Cynthia Allen CNM Unavailable [phone] Tari Urias DO Unavailable [phone] Palak Culver CNM Unavailable [phone] Damaso Carranza MD Unavailable Ian Youssef MD Unavailable [phone] Jc Jacobs MD Unavailable Eliz Saleem [facility] Unavailable Reason for Visit * Auth/Cert Specialty Diagnoses / Procedures Referred By Theresa t Referred To Contact Diagnoses 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] Procedures AK RADICAL ABD HYSTEREC+PELV NODES AK REMOVE PELVIS LYMPH NODES HYSTERECTOMY RADICAL LYMPHADENECTOMY PELVIC Referral ID Status Reason Start Date Expiration Date Visits Re quested Visits Authorized [id number] 1 1 Encounter Details Date Type Department Care Team (Late st Contact Info) Description 05/05/2019 7:41 AM EST - 05/10/2019 3:29 PM EST Hospital Encounter [facility] [address] [place] [address] Marce Cole MD [address] [place] [address] [email or web address] Discharge Disposition: Home or Self Care Social [...] Sign Reading Time Taken Comments Blood Pressure 132/82 05/10/2019 11:00 AM EST Pulse 79 05/10/2019 11:00 AM EST Temperature 36.6 ??C (97.8 ??F) 05/10/2019 11:[address] Respiratory Rate 20 05/10/2019 11:00 AM EST Oxygen Saturation 98% 05/10/2019 11:00 AM EST Inhaled Oxygen Concentration 40% 05/06/2019 2 :00 PM EST Weight 59 kg (130 lb) 05/05/2019 8:14 AM EST Height 149.9 cm (4' 11) 05/05/2019 8:14 AM EST Body Mass Index 26.26 05/05/2019 8:14 AM EST documented in this encounter Discharge Summaries * Mj Ramsey MD - 05/10/2019 11:21 AM EST Images from the original note were not included. Physician Discharge Summary Admit date: 05/05/2019 Discharge date: 05/10/2019 Patient Information Marylou Shafer, 28 y.o. female ( = 1990) Home Address: [address] [place] [address] (home) What language do you prefer to use when discussing your healthcare?: Citizen Of [place] What language do you prefer for written communication?: Citizen [place] Type of Advance Care Directive(s): Health Care Proxy Does patient have a Health Care Proxy form completed?: HCP is available to place in chart Health Care Agents There are no Health Care Agents on file. Code Status at Discharge: Full Code (Presumed) Hospitalization Summary Reason for Admission: Gynecological Oncological Surgery Principal Problem: Post-operative state Resolved Problems: * No resolved hospital problems. * Surgical (OR) Procedures: Surgeries this admission Past Procedures (05/05/2019 to Today) Date Procedures Providers 05/05/2019 Exploratory Laparotomy, Total Abdominal Radical Hysterectomy, Bilateral Salpingectomy, Upper VaginectomyLymphadenectomy Pelvic Marce Cole Open case Staff: Comfort May MD - FellowAreli mistry MD - FellowMagen borges MD - Anesthesia AttendingBanner Rehabilitation Hospital WestVane diaz CRNA - CRNAAnesthesia FellowAnesthesia ResidentAnesthesia AttendingMarce Mike MD - Primary 05/06/2019 Exploratory Laparotomy & Washout Marce Cole Open case Staff: Comfort May MD - FellowCRNAAnesthesia [facility] CenterJabari MD - Anesthesia AttendingScionhealthMich javed MD, BERNARD - Anesthesia ResidentCoshocton Regional Medical CenterVera cantrell MD - Anesthesia ResidentMarce Cole MD - Primary Procedures this admission None Non (OR) Procedures: 05/06 314 Note By: Mahamed Bentley MD Pending Results Procedure Component Value Ref Range Date/Time Creatinine (fluid--not CSF) [[id number]] Collected: 05/10/19 0845 Lab Status: In process Specimen: Other from [facility] fluid Updated: 05/10/19 1106 Hospital Course Marylou Shafer is a 28 y.o. 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 Postoperative course c/b hypotension with increasing pressor requirement, transferred to [place] [address] ICU for further management - then eventually w/ hgb drop, +FAST c/f significant hemoperitoneum; and clinical c/f intraabdominal bleed, s/p re- exploration POD#1. ===== ICU COURSE 05/06/2019 - 05/07/2019, AQUATICS MANAGER ONC FLOOR COURSE 05/07-05/10 ===== The patient was admitted to the Gynecologic Oncology service postoperatively; however postoperativecourse was c/b hypotension, ongoing hgb downtrend, and increasing pressor requirement so patient was transferred to the ICU for further management; then worked up with + FAST c/f significant hemoperitoneum and clinical c/f intra-abdominal bleed, s/p re-exploration POD#1 with evacuation of 2L hemoperitoneum and note of bleeding fro peritoneal surfaces, no c/f arterial bleed identified. Re-closed and brought back to SICU initially for ongoing recovery - please see op note for further detail. #Onc: Preoperatively the patient was thought to have stage IB1 grade 3 endocervical ACIS - previously diagnosed by cone, with negative margins but with ECC positive for ACIS. This was followed by so there was then a delay in her treatment/followup. During thi sadmission patient underwent radical hysterectomy, bilateral salpingectomy, pelvic lymph node dissection; EBL 1000. On POD#0 she developed hypotension and persistent pressor support requiring ICU admission, and bedside ultrasoundshowed hemoperitoneum. She was taken back to the OR for re-exploration. No active bleeding was found but ~2L of blood was evacuated from the abdomen (please see full Op note). She was transferred back to the SICU where pressors were weaned and extubated on POD1. Final pathology pending at time of discharge from the hospital. Imaging preoperatively included MRI 04/29 with no evidence of malignancy. PET CT with no FDG avid mets to neck, chest, abdomen or pelvis. Primary tumor not clearly visualized; no abdominopelvic mets identified. # Neuro/Pain: When the patient was transferred to the ICU following her re-op she was initially remained sedated and intubated. The patient was extubated POD 1 (05/06). The patient's pain was initially well-controlled with PCEA placed during her initial operative case was removed; as well as standing toradol, standing tylenol, and oxycodone as needed; as well as initially IV pain medications as needed while not yet tolerating POs. She was then switched to an oral pain medication regimen once tolerating POs. Her pain was well controlled at the time of discharge. The patient has a history of anxiety and depression, and was continued on her home bupropion throughout her hospital course. The rehan ent also has a history of chiari malformation - managed previously with cranial decompression and laminectomy. 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 These were not active issues for her during this hospitalization. # CV: (Please see #Onc for initial post-op course. In short, pt required pressors post-operatively and had anemia requiring multiple transfusions, and taken for re-exploration and transfer to SICU with pressors weaned). # Pulm: The patient remained intubated after her initial operative case on 05/05 through her re-exploration before being extubated on 05/06. # GI: The patient was NPO in the ICU while initially intubated and sedated after re-op in setting of intraabdominal bleeding. When extubated; she was gradually advanced as far as he rdiet.The patient's diet was advanced to a regular diet on 05/07 (POD2). She received a bowel regimen and anti-emetic medications as needed during her postoperative recovery. She passed flatus prior to discharge. At the time of discharge, the patient was tolerating good PO intake and PO medications without significant nausea/emesis. # : The patient was admitted to the floor with a staples catheter in place. The plan is for the staples to remain in place for 2 weeks in the setting of radical dissection for the hysterectomy. She demonstrated good UOP throughout her postoperative course, other than urine output dropoff in setting of initial intraabdominal bleeding overnight POD#0-POD#1. Thereafter with nl UOP. Staples was kept in place at discharge. # HEME: The patient's preoperative hct was 37.5; EBL From her surgery was called 1000. The patient's post-op Hgb downtrended to 6 and required 9 units pRBC total and 4x4 FFPxplts, for transfusion. Asabove, with +FAST, hypotension, pressor requirement and downtrending hgb ovenright POD#0 to POD#1 from her radical hysterectomy concern for ongoing intraabdominal bleed and patient was re-operated onPOD#1 overnight with note of 2L hemoperitoneum and bleeding from peritoneal surfaces; did not identify arterial bleeder to ligate. Please see op note for further detail. Hemodynamically patient improved POD#1-POD#2 as hgb stabilized and bleeding stabilized. Anticoagulation prophylaxis was initially held in the setting of bleeding; it was restarted after transfer to floor. She was discharged to complete a 28day course for postoperative DVT prophylaxis. # ID: She received perioperative antibiotics and there were no signs / symptoms of infection after her surgery. The patient was afebrile at discharge. # ENDO: There were no active issues. # PPx: Enoxaparin and sequential compression devices were used for DVT prophylaxis perioperatively. #TLD: JEANETTE drain was placed intra-op in pelvis and removed prior to discharge on 18. #OBGYN: The patient is relatively recent - during her postoperative recovery she dd continue #Dispo: The patient was discharged to home on POD#5 with plan for follow up in 2 weeks post-op for Staples removal/TOV; at which point final pathology will be reviewed. Medications Allergies: Cantaloupe; Cephalexin monohydrate; Other; Paroxetine hcl; Penicillin; Penicillins; Sertraline; Sulfamethoxazole; Trimethoprim; and Valacyclovir hcl Prior to Admission Medications Prescriptions buPROPion (WELLBUTRIN XL) 150 MG ER 24 hr tablet Sig: Take 150 mg by mouth daily. For depression Note (01/28/2019): IKS Med Transfer Process norethindrone (MICRONOR) 0.35 mg tablet Sig: Take 1 tablet (0.35 mg total) by mouth daily. Micronor 1 tab po QD 95-iron yxs-qzxfp-mvv ( + DHA) 28 mg iron-800 mcg-200 mg Cmpk Note (01/28/2019): Needs MD Verification Facility-Administered Medications: None Medication List TAKE these medications Instructions acetaminophen 325 mg tablet Commonly known as: TYLENOL Last time this was given: May 10, 2019 10:04 AM Take 3 tablets (975 mg total) by mouth every 6 (six) hours. diphenhydrAMINE 25 mg capsule Commonly known as: BENADRYL Take 1 capsule (25 mg total) by mouth every 6 (six) hours as needed for itching. enoxaparin 40 mg/0.4 mL Syrg subcutaneous syringe Commonly known as: LOVENOX Last time this was given: May 09, 2019 3:02 PM Inject 0.4 mL (40 mg total) under the skin daily for 28 days. ibuprofen 600 MG tablet Commonly known as: ADVIL,MOTRIN Last time this was given: May 10, 2019 6:01 AM Take 1 tablet (600 mg total) by mouth every 6 (six) hours as needed. norethindrone 0.35 mg tablet Commonly known as: MICRONOR Take 1 tablet (0.35 mg total) by mouth daily. Micronor 1 tab po QD oxyCODONE 5 MG immediate release tablet Last time this was given: May 10, 2019 8:37 AM Take 1-2 tablets (5-10 mg total) by mouth every 4 (four) hours as needed for moderate pain. Partialfill ok + DHA 28 mg iron-800 mcg-200 mg Cmpk Generic drug: 95-iron ows-pdpgq-fsg Wellbutrin XL 150 MG ER 24 hr tablet Generic drug: buPROPion Last time this was given: Ask your nurse or doctor Take 150 mg by mouth daily. For depression Where to Get Your Medications These medications were sent to [address] - [address] [address] ?? acetaminophen 325 mg tablet ?? diphenhydrAMINE 25 mg capsule ?? enoxaparin 40 mg/0.4 mL Syrg subcutaneous syringe ?? ibuprofen 600 MG tablet ?? oxyCODONE 5 MG immediate release tablet Hospital Care Team Service: Gynecologic Oncology Inpatient Attending: Marce Cole MD Attending phys phone: Discharge Unit: [facility] Primary Care Physician: Jennifer Bridges, CONTRACT OFFICER [phone] Transitional Plan Scheduled appointments: Scheduled Appointments (maximum listed = 10) Provider Department Dept Phone Center 05/17/2019 1:00 PM Marce Cole MD [facility] Center for Gyne[facility] Oncology [phone] 06/20/2019 9:00 AM (Arrive by 8:45 AM) Ryan Barr MD [facility] [phone] Signed Discharge Orders (From admission, onward) Ordered 05/10/19 1119 Activity as tolerated 05/10/19 1119 Discharge diet Comments: Diet Regular 05/10/19 1119 Remove dressing in 24 hours 05/10/19 111 For immediate questions regarding your hospitalization, your medications, and any pending test results please contact your doctor in the hospital: Marce Cole MD at . Comments: For immediate questions regarding your hospitalization, your medications, and any pendingtest results please contact your doctor in the hospital: Marce Cole MD at [phone]. 05/10/19 1119 For immediate questions regarding your hospitalization, your medications, and any pending test results please contact the Gynecologic Oncology fellow validation intern at [phone] and ask him/her to be paged. Comments: For immediate questions regarding your hospitalization, your medications, and any pendingtest results please contact the Gynecologic Oncology fellow validation intern at [phone] and ask him/herto be paged. Discharge instructions and important events and results Dear Marylou Shafer, It was a pleasure taking care of you during your hospital stay. As you are aware, you were admittedto the hospital for surgery. If you have any questions or concerns, please call the AQUATICS MANAGER Oncology clinic at [phone] (option [phone]), or [phone] for our 24-hour call line. Here is a summary of your upcoming appointments: Future Appointments 05/17/2019 1:00 PM Marce Cole MD [id number] None 06/20/2019 9:00 AM Ryan Barr [facility] None Regarding your medications, you can take both motrin and tylenol every 6 hours, as needed. This is the best way to control your pain for the first few days at home: -With breakfast take 400-600mg (2-3 ftdd-xaz-dmizzaz tablets, or 1 prescription tablet) Motrin -3 hours later take 650-975 (2-3 OTC tablets, 1-2 extra strength tablets) Tylenol -With Lunch 400-600mg Motrin -3 hours later take 650-975 Tylenol -With Dinner 400-600mg Motrin -Before Bed 650-975 Tylenol This keeps your pain well controlled throughout the day. IF you have pain that isn't well controlled with Motrin/Tylenol, please take 1-2 tablets of your narcotic every four hours as needed. As you continue to heal, you will have improvement in your pain, please wean down on your narcotic use and eventually stop. While taking narcotics, please take 1-2 tabs Senakot 1-2x a day and Miralax 1-2x a day as needed. Regarding other medications: - Please do prophylactic lovenox injections once a day for one month post op - Resume all previously taken medications Regarding restrictions: - No driving while taking narcotics - No driving until cleared by your primary surgeon - No heavy lifting - No submerging vagina/abdomen in water (baths or swimming) for 6 weeks - Nothing in vagina for 6 weeks (no sexual intercourse or inserting anything in vagina) - Walking is GREAT! Stairs are GREAT! Be sure not to walk your dog or perform extensive cardio until cleared by your primary surgeon Reasons to call: - Fever above 100.4 degrees F - Nausea/Vomiting - Worsening pain not controlled by your medications - Your wound is red or there is pus coming out of it - You can expect light vaginal spotting or staining for up to 3 months post op, but call if soaking>1 pad an hour - Any questions you may have! If you have any chest pain, shortness of breath, lightheadedness, diarrhea, bloody stools, fevers, please seek medical care right away. Again, it was truly a pleasure to take care of you in the hospital. If you have any questions before you leave, be sure to reach out. Sincerely, Your [facility] AQUATICS MANAGER ONC Care Team Opioids: Safe use, storage, and disposal Opioids (narcotics) are stronger pain medicines that work well to reduce severe pain for a short time, but can be dangerous if used improperly. Opioids can become addictive and may also have serious side effects. Prescription drug abuse is a serious public health issue. The information below will help keep you safe. Safe Use ??? Take medications only as prescribed. o Never take more than instructed o Never take somebody else's medicine o Never give or sell your medicine to someone else ??? Improper use of pain medicine is a leading cause of accidental o Combining opioids with alcohol or other drugs increases the risk of o Combining opioids with medicines used to calm anxiety can result in overdose ??? Using opioids for something other than pain (anxiety, sleep, fear of pain, to feel good) can create a harmful dependence/addiction Safe Storage ??? Your medications are prescribed onlyfor you. ??? Hide or lock up opioid medications so that family members, friends and houseguests do not take them. o Pain medications are a leading cause of serious poisoning of children and pets when they are not stored properly ??? Keep prescription medications in their original packaging so it is clear for whom the medications were prescribed and to save the directions for appropriate use Safe Disposal ??? Return unused opioids to a special medication disposal unit (a disposal unit is located in [facility] and most police stations now have disposal or take back units) o Find a disposal site near you at this website: https://www.deadiversion.[employer]gov/pubdispsearch ??? If no medicine take-back program is available in your area, you can flush some medications downthe toilet* or follow these simple steps to get rid of most medicines in the household trash: o Mix medicines (do NOT crush tablets or capsules) with carly litter or used coffee grounds (children, pets or other people will be less likely to eat or take them); o Place the mixture in a sealed plastic bag or empty can; and o Throw the container in your household trash. ??? Before throwing out your empty pill bottle or other empty medicine packaging, remember to scratch out all information on the label to make it unreadable. * See FDA website for medicines recommended for disposal by flushing. http://www.fda.gov/ForConsumers/ConsumerUpdates/ast786721.htm Exam Temperature: 36.6 ??C (97.9 ??F) (05/10/19722) Heart Rate: 75 (05/10/19722) BP: 126/84 (05/10/19722) Respiratory Rate: 20 (05/10/19722) SpO2: 99 % (05/10/19722) O2 Device: None (Room air) (05/10/19722) O2 Flow Rate (L/min): 10 FiO2 (%): 40 % (05/06/19 1400) Weight: 59 kg (130 lb) (05/05/19813) Height: 149.9 cm (4' 11) (05/05/19813) BMI (Calculated): 26.2 (05/05/19813) Discharge Exam Significant Discharge Exam Findings: Gen: R eye deviant, vesicular rash on neck from tape CV/Pulm: breathing comfortably on RA, extremities warm and well perfused Abd: moderately distended, incision c/d/i with clair Ext: wwp, no edema Orientation Level: Oriented X3 Cognition: Follows commands Speech: Clear Vision: Functional Data/Results Results are shown for the following tests if performed (CBC, Chem 7, Mg, Coag). If the patient did not have any of these tests, no results will be shown here. Lab Results Component Value Date/Time WBC 3.60 (L) 05/09/20192039 RBC 3.90 (L) 05/09/20192039 HGB 11.7 (L) 05/09/20192039 HGBBG 10.4 (L) 05/06/2019518 HCT 34.9 (L) 05/09/20192039 MCH 30.0 05/09/20192039 MCV 89.5 05/09/20192039 PLT 114 (L) 05/09/20192039 RDW 13.4 05/09/20192039 Lab Results Component Value Date/Time NA 139 05/09/20192039 NAPL 138 05/06/2019518 K 4.1 05/09/20192039 KPL 4.1 05/06/2019518 CL 102 05/09/20192039 CO2 25 05/09/20192039 BUN 7 (L) 05/09/20192039 CRE 0.55 (L) 05/09/20192039 CA 9.1 05/09/20192039 GLU 113 (H) 05/09/20192039 Lab Results Component Value Date/Time MG 1.8 05/09/20192039 Lab Results Component Value Date/Time PT 14.4 05/07/2019431 PTT 29.4 05/07/2019431 INR 1.1 05/07/2019431 documented in this encounter Medications at Time [...] fill ok 15 tablet 05/10/2019 10/04/2019 95-iron mgp-ktpmd-odb 28 mg iron-800 mcg-200 mg Cmpk 11/09/2021 documented as of this encounter Progress Notes Only the most recent of 27 notes is shown. * Samina Amin RN - 05/10/2019 11:59 AM EST CASE MANAGEMENT INITIAL ASSESSMENT NOTE Initial Case Management screening has been completed and the patient meets case management high risk criteria. FUNCTIONAL STATUS-ADL's- iADL's: Current Functional Status Vision: Functional Feeding: Able to feed self Bathing: Independent Toileting: Independent In/Out Bed: Independent Walks in Home: Independent FAMILY/SOCIAL: Lives With: Spouse/partner, Minor child(clay) Type of Residence: Independent housing HCP: Does patient have a Health Care Proxy form completed?: HCP is available to place in chart SERVICES/SUPPORTS (VNA, DME, Community Services, etc.): Support System:Spouse/significant other Primary purchasing administrator: Primary Language:Citizen Of [place] Printing Assistant: TRANSPORTATION: MEDS/PHARMACY: Prescription benefits: Insurance verified: Bed Hold: INSURANCE/FINANCIAL: Payor: [employer] / Plan: [employer] PPO / Product Type: PPO / Subscriber number: [id number] Subscriber name: ZAC SHAFER Primary Visit Coverage Payer Plan Plan Address Plan Phone Sponsor Code Group Number Group Name [id number] PPO [address] [place] [address] Primary Visit Coverage Subscriber Subscriber ID Subscriber Name Subscriber N Subscriber Address [id number] ZAC SHAFER [address] [place] [address] PCP Confirmed/ PHYSICIANS/Other Supports: Jennifer Bridges APRN CM PLAN/ Discharge planning: Patient/Family/Caregiver discharge preference/goals : Home NEXT Action: Assessment/High Risk Screening:Complete Next Steps:CM will continue to follow Lives with , mother is a nurse, independent prior to admission, lovenox teaching and staples care instructions to be completed before discharge, lovenox script sent to [facility] in [facility] , anticipate dc to home today, No home care services indicated. Case management will continue to follow the patient with the treatment team and is available for consultation as needed. documented in this encounter H&P Notes * Mahamed Bentley MD - 05/06/2019 1:57 AM EST [place] [address] ICU ADMIT NOTE NAME: ?Marylou Shafer ?? Date of SICU admit: 05/06/2019 Time: 1:57 AM ICU Attending: Dr. Varsha Jackson Surgical Attending: Marce Cole MD Surgical Service: Health Advisor Onc Active Hospital Problems Diagnosis Date Noted ??? Post-operative state 05/05/2019 Reason for SICU Admission: Postoperative hypotension requiring pressors HPI: Marylou Shafer is a 28 y.o. 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 Postoperative course c/b hypotension with increasing pressor requirement, transferred to [place] [address] ICU for further management. Intra-op EBL was reportedly 1L; she received 1L albumin and 2L LR. Postop, she received 2u pRBC for Hgbnadir 5.4; FAST at 7pm was reportedly negative. Hypotension persisted requiring phenylephrine as high as 180 around midnight at which time decision was made to transfer to ICU. ROS: CONSTITUTIONAL: + fatigue. No weight loss, fever. HEENT: No visual changes, scleral icterus, hearing changes, sore throat SKIN: No rash or itching. CARDIOVASCULAR: No chest pain, palpitations, or edema. RESPIRATORY: No shortness of breath, cough or sputum. GASTROINTESTINAL: + abdominal pain. No nausea, vomiting or diarrhea. No BRBPR or melena. GENITOURINARY: No dysuria, hematuria, frequency, urgency. NEUROLOGICAL: No headache, dizziness, syncope, numbness or weakness. MUSCULOSKELETAL: No muscle, back pain, joint pain or stiffness. HEMATOLOGIC: No bleeding or bruising. Past Medical History: Past Medical History: Diagnosis Date ??? Adenocarcinoma in situ of cervix ??? Anemia ??? Anxiety and depression ??? Asthma young child ??? Cancer ??? Eye muscle paralysis right eye partial ??? Hypertensive disorder with pregnancies; resolved after births Past Surgical History: Past Surgical History: Procedure Laterality Date ??? CERVIX SURGERY cold knife ??? UNCODED SURGICAL HISTORY Asthma as child, allergies now ??? UNCODED SURGICAL HISTORY Polydypsia ??? UNCODED SURGICAL HISTORY Cervical Dysplasia, mild; Colposcopy, without biopsy; 10/14/2013; 04/08/2016 - @ [facility] ??? UNCODED SURGICAL HISTORY Abdominal pain [...] surgery; 2006 ??? UNCODED SURGICAL HISTORY Polyuria Home Medications: Medications Prior to Admission Medication Sig ??? buPROPion (WELLBUTRIN XL) 150 MG ER 24 hr tablet Take 150 mg by mouth daily. For depression ??? norethindrone (MICRONOR) 0.35 mg tablet Take 1 tablet (0.35 mg total) by mouth daily. Micronor 1 tab po QD ??? 95-iron vvj-ghftf-ohl ( + DHA) 28 mg iron-800 mcg-200 mg Cmpk Allergies: Allergies Allergen Reactions ??? Cantaloupe Mouth and throat itching ??? Cephalexin Monohydrate ??? Other ragweed ??? Paroxetine Hcl Nausea Only ??? Penicillin ??? Penicillins Rash ??? Sertraline Nausea Only ??? Sulfamethoxazole ??? Trimethoprim ??? Valacyclovir Hcl Social History: Social History Socioeconomic History ??? Marital status: /Civil Union Spouse name: Not on file ??? Number of children: Not on file ??? Years of education: Not on file ??? Highest education level: Not on file Occupational History ??? Not on file Social Needs ??? Financial resource strain: Not on file ??? Food insecurity: Worry: Not on file Inability: Not on file ??? Transportation needs: Medical: Not on file Non-medical: Not on file Tobacco Use ??? Smoking status: Never Smoker ??? Smokeless tobacco: Never Used Substance and Sexual Activity ??? Alcohol use: Not Currently ??? Drug use: Yes Types: Marijuana Comment: on weekends, last used 05/02/2019 ??? Sexual activity: Not on file Lifestyle ??? Physical activity: Days per week: Not on file Minutes per session: Not on file ??? Stress: Not on file Relationships ??? Social connections: Talks on phone: Not on file Gets together: Not on file Attends jew service: Not on file Active member of club or organization: Not on file Attends meetings of clubs or organizations: Not on file Relationship status: Not on file ??? Intimate partner violence: Fear of current or ex partner: Not on file Emotionally abused: Not on file Physically abused: Not on file Forced sexual activity: Not on file Other Topics Concern ??? Not on file Social History Narrative ??? Not on file Family History: Family History Problem Relation Age of Onset ??? Hypertension Father Hypertension ??? Diabetes mellitus Father Diabetes mellitus ??? Obesity Father Obesity ??? Stroke Father Stroke ??? Asthma Sister Asthma ??? Obesity Sister Obesity ??? Asthma Daughter Asthma ??? Obesity Mother Obesity ??? Thyroid disease Mother Thyroid disorder ICU Admission Physical Exam: Vitals: 36.7 ??C (98 ??F) P (!) 110 BP 96/56 RR 12 SpO2 99 % 2 FiO2 59 kg (130 lb) Temperature: [35.9 ??C (96.7 ??F)-37.7 ??C (99.8 ??F)] 36.7 ??C (98 ??F) Heart Rate: [70-114] 110 Respiratory Rate: [10-20] 12 BP: (70-124)/(44-76) 96/56 Exam: Gen: A&O x3, lying in bed with eyes closed, appears weak and pale CV: slightly tachycardic, regular rhythm Resp: breathing comfortably on RA Abd: FAST + for perinephric fluid bilaterally Ext: slightly cool Labs: Results from last 7 days Lab Units 05/06/19205705/05/19202905/05/19195605/05/19174505/05/19 1551 WBC K/uL 6.61 7.15 5.84 7.25 5.46 HGB g/dL 8.6* 6.0* 5.4* 8.0* 7.2* HCT % 25.4* 17.6* 15.9* 24.3* 21.7* PLT K/uL 149* 183 130* 200 139* Results from last 7 days Lab Units 05/05/19 1551 NEUTROPHIL # K/uL 4.41 Results from last 7 days Lab Units 05/06/19205705/05/19202905/05/[id number]/05/19174505/05/19 1551 SODIUM mmol/L 142 144 142 144 145 POTASSIUM mmol/L 4.2 4.4 4.9 4.0 3.4 CHLORIDE mmol/L 108 106 107 107 113* CARBON DIOXIDE mmol/L 21* 22* 21* 23 17* BUN mg/dL 10 8 8 8 6* CREATININE mg/dL 0.68 0.63 0.63 0.72 0.43* GLUCOSE mg/dL 157* 123* 105 182* 119* Results from last 7 days Lab Units 05/06/19205705/05/19202905/05/19195605/05/19174505/05/19 1551 CALCIUM mg/dL 8.8 8.2* 7.5* 8.1* 6.4* MAGNESIUM mg/dL 2.5* 1.5* 1.3* 1.5* 1.0* Results from last 7 days Lab Units 05/02/19 1220 GLUCOSE (POC) mg/dL 80 Results from last 7 days Lab Units 05/06/191005/05/19174505/05/19 1551 05/05/19 1005 PT sec 18.1* 16.3* 18.5* 13.3 PTT sec 27.7 22.9 28.9 26.6 PT-INR 1.5* 1.3* 1.5* 1.0 Invalid input(s): ABASEDEF Results from last 7 days Lab Units 05/06/19 0011 05/05/19 2030 05/05/19 1512 05/05/19 1409 PH, VENOUS 7.32 7.41* 7.27* 7.27* PCO2, VENOUS mm[Hg] 43 37* 48 36* PO2, VENOUS mm[Hg] 73* 58* 45 39 Invalid input(s): CKMB No results found for: TSH, GHBA1C EKG: No results found for any visits on 05/05/19. Imaging: No orders to display Assessment and Plan: Marylou Shafer is a 28 y.o. 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 Postoperative course c/b hypotension with increasing pressor requirement, transferred to [place] [address] ICU for further management. Neuro: - PCEA - Standing tylenol, gabapentin - Oxy PRN - Holding NSAIDs - Home bupropion Resp: - No issues CV/Heme: #Hypovolemic shock -- significant intraoperative blood loss (EBL 1L), likely ongoing oozing given +FAST @ 1am (reportedly negative @ 7pm) - S/p intra-op resusc (1L albumin, 2L LR), PACU resusc (2u pRBC) - LR bolus 2L, infusion @ 75 - 1u pRBC - Wean andre as able - MAP goal > 60 - Trend lactate q6h (5.9 < 1.5 < 2.3) - CBC q2h - Hgb Goal > 7.0 (brandyn 5.4) - If requiring more transfusions, will consider TXA - Holding DVT ppx given active bleeding GI: - NPO - Nausea: Zofran, compazine, haldol, ativan PRN - Protonix ppx Renal: - Staples, to remain in place through discharge per Health Advisor ID: - No issues Endocrine: - Continue Prophylaxis: - DVT: Mechanical - Pneumoboots - Chemical - N/A - GI:Protonix TLD: Patient Lines/Drains/Airways Status Active Lines, Drains and Airways Name: Placement date: Placement time: Site: Days: Urinary Catheter Two-way 05/05/19 -- Two-way 1 Epidural Catheter 05/05/19 0942 Thoracic 1 Dispo: SICU ? Code: Full Code (Presumed) Mahamed Bentley MD Associated attestation - Varsha Jackson MD, MPH - 05/06/2019 3:52 AM EST ICU Attending Addendum ? Critical Care Attending Attestation: I have directly seen and delivered critical care services to this patient. I reviewed the relevant x-rays, patient events of the previous 24 hours, physical exam,lab findings, fluid balance, neurologic status, and cardiovascular status including invasive monitoring data, pulmonary status, and metabolic status including nutrition, medications and results of mabel robiology studies. The case was discussed with all appropriate health care providers. The total critical care time that I have personally invested in direct care of Marylou Shafer on 05/06/2019= 45 minutes and excludes additional time for procedures. ? Issues to emphasize include:?? Agree with Dr. Bentley's excellent note. Briefly, 28F with Chiari malformation s/p cranial decompresion/laminectomy, depression s/p ex-lap, radical abdominal hysterectomy, bilateral salpingectomy, bilateral pelvic lymph node dissection for endocervical adenocarcinoma in situ (previously treated with conization, endocervical curettage) now admitted to [place] [address] ICU from PACU with persistent hypotension concerning for bleeding, transfusing now, phenylephrine up to 180mcg/min, transfuse for hemodynamics, goal hgb >7.0, FAST at bedside positive with free fluid, per d/w car servicer attd, back to OR at 0350. ? Varsha Jackson MD MPH Critical Care Attending [facility] Pager: [phone] documented in this encounter Procedure Notes Only the most recent of 5 notes is shown. * Marce Cole MD - 05/06/2019 4:27 AM EST Full Operative Note Patient Name: Marylou Shafer Date of Surgery: 05/06/2019 Pre-Op Dx: S/p Radical hysterectomy/PLND with post operative bleeding Post-Op Dx: S/p Radical hysterectomy/PLND with post operative bleeding Procedure(s): EXPLORATORY LAPAROTOMY & WASHOUT Surgeon(s): Marce Cole MD Fellow Assist: Dr. May Applications Support Analyst: Jabari Guerrero MD Waredresser: Mich Sauceda MD, BERNARD; Vera Valle MD Anesthesia Type: General ASA Code: II Description of Procedure: The patient was brought urgently to the operating room where general anesthesia was felt to be adequate. She was prepped and draped in normal sterile fashion in dorsal supine position. Attention was then was turned to re-opening the midline incision with a knife and brought down to underlying layer of fascia. The scissors were used to open the PDS suture and the fascia wa s opened. Approximately 2500 cc of old blood was evacuated from the pelvis with suction and laps and once cleared, systemic evaluation of all pedicles and dissection planes revealed multiples areas of vascularoozing. There was no artery or vein that was open c/w a lost vascular pedicle. The bowel was run from the ileocecal valve to the ligament of treitz and the ovaries were found to have excellent hemostasis. In the pelvis, a steady ooze was appreciated from both the left alexandra-rectal space and the rectovaginal septum . In the perivesical space, 2-0 vicryl mattress stitches were replaced and bipolar cautery was used to obtain excellent hemostasis. In the rectovaginal space, stitches of 2-0 vicryl figure of eight sutures were used to obtain control. Pressure was applied while anesthesia corrected her coagulopathy and low hct. Following pack removal, excellent hemostasis was appreciated. The cuff pedicles were re-sewn and floseal and surgicel was placed in the friable areas. A 19 heaven drain was then placed in the pelvis and secured in place with nylon stitches. Attention was then turned to copiously irrigating on the abdomen and then was turned to closing, a looped PDS suture was used, one stitch going from the superior aspect of the incision, one stitch going from the inferior aspect of the incision. Attention was then turned to closing to tying the 2 PDS sutures in the midline, thus closing all the fascia. Attention was then turned to closing the subcutaneous fat utilizing a 4-0 Vicryl interrupted stitches and then the skin was closed with clair. Procedure Findings: 2500 cc of hemoperitoneum with no clear vascular source other that global friability in the dissected left alexandra-rectal space and rectovaginal space. Hemostasis obtained and a drain was placed. Estimated Blood Loss: 2500 mL Drains: Closed/Suction Drain 1 19 HEAVEN DRAIN Bulb 19 Fr. Abdomen (Active) Closed/Suction Drain 1 bard drain Bulb 19 Fr. 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 Post-op course c/b HoTN with increase pressor requirement c/f intraabdominal bleeding requiring re- exploration and evacuation of hemoperitoneum. ?? VSS. 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 Blisters on neck from tegaderm, team aware. Hydrocortisoneapplied to neck and back for skin rash and itching, Benadryl given, MD aware. Oxy on hold because of rash. PO pain tylenol and ibuprofen with??+effect. S6eqyvmit removed??/17. Some nausea this shift,??Zofran and Compazine given with some effect. OOB x1 assist. I/S encouraged.Tolerating small amts regular diet. +flatus,??+small BM. Staples to remain in place x2 weeks, leg bag teaching preformed. JPremoved this shift, dressing in place. Pt going home on Lovenox, teaching preformed. Pt has 7month son at home, breast pump at bedside, independent with pumping. Oscar involved in care. Discharge paperwork explained, all questions answered. providing transportation home. documented in this encounter OR Notes Only the most recent of 2 notes is shown. * OR Nursing - Danay Kelly RN - 05/06/2019 4:51 AM EST Pt arrived emergently to OR 30 accompanied by surgical teams, was able to confirm name and date of ; pt somnolent but arouseable ; emergent procedure Danay Kelly RN documented in this encounter Miscellaneous Notes * Assessment & Plan Note - Robina Barlow CNP - 05/06/2019 3:25 AM EST Associated Problem(s): Post-operative state 28 yr female 05/05, post op ex lap, total abdominal radical hysterectomy, bilat salpingectomy, uppervaginectomy, pelvic lymph node dissection on 05/05 who had persistent pressor requirement and low hgb requiring transfusions taken back to OR for exploration. 05/06, S/p exp lap. Evacuated 2L blood, no obvious bleeding vessels seen, several suspicious vesselssutured and hemostatic agents (surgicel) used, no further [...] BUN/Cr: 6/0.63 from 9/0.70. TBB +7.5L - Staples, to remain in place through discharge per Health Advisor (2 weeks) - LR at 75cc/hr -> [...] - RIJ MAC introducer - remove - Staples - JEANETTE documented in this encounter Plan of Treatment Not on file documented as of this encounter Procedures Procedure Name Priority Date/Time Associated Diagnosis Comments CREATININE (FLUID--NOT CSF) Routine 05/10/2019 8:45 AM EST CHEMISTRY COMMENT Routine 05/10/2019 6:4 5 AM EST CREATININE (FLUID--NOT CSF) Routine 05/10/2019 6:45 AM EST CBC Routine 05/09/2019 8:40 PM EST MAGNESIUM Routine 05/09/2019 8:40 PM EST BASIC METABOLIC PANEL Routine 05/09/2019 8:40 PM EST CBC Routine 05/08/2019 8:50 PM EST MAGNESIUM Routine 05/08/2019 8:50 PM EST BASIC METABOLIC PANEL Routine 05/08/2019 8:50 PM EST CBC Routine 05/08/2019 5:11 AM EST PREPARE PLATELETS STAT 05/08/2019 12: 38 AM EST CBC STAT 05/07/2019 9:08 PM EST MAGNESIUM Routine 05/07/2019 9:08 PM EST BASIC METABOLIC PANEL Routine 05/07/2019 9:08 PM EST CBC Routine 05/07/2019 4:39 PM EST PHOSPHORUS Routine 05/07/2019 4:39 PM EST MAGNESIUM Routine 05/07/2019 4:39 PM EST POTASSIUM Routine 05/07/2019 2:29 PM EST POTASSIUM Routine 05/07/2019 9:43 AM EST MAGNESIUM Routine 05/07/2019 9:43 AM EST PREPARE RBC Routine 05/07/2019 6:44 AM EST PREPARE RBC STAT 05/07/2019 6:44 AM EST PREPARE PLATELETS Routine 05/07/2019 4:3 5 AM EST PREPARE PLASMA Routine 05/07/2019 4:35 AM EST PREPARE PLASMA STAT 05/07/2019 4:35 AM EST PREPARE RBC STAT 05/07/2019 4:35 AM EST PTT Routine 05/07/2019 4:32 AM EST PT-INR STAT 05/07/2019 4:32 AM EST CBC Routine 05/07/2019 2:45 AM EST PHOSPHORUS Routine 05/07/2019 2:45 AM EST MAGNESIUM Routine 05/07/2019 2:45 AM EST BASIC METABOLIC PANEL Routine 05/07/2019 2:45 AM EST PREPARE RBC Routine 05/07/2019 12:36 AM EST CBC STAT 05/06/2019 10:36 PM EST MAGNESIUM Routine 05/06/2019 3:52 PM EST CBC Routine 05/06/2019 3:51 PM EST LACTIC ACID (LACTATE) Routine 05/06/2019 3:51 PM EST EXTUBATION Routine 05/06/2019 1:54 PM EST PTT Routine 05/06/2019 12:37 PM EST PT-INR Routine 05/06/2019 12:37 PM EST IONIZED CALCIUM Routine 05/06/2019 12:37 PM EST ARTERIAL BLOOD GAS Routine 05/06/2019 11 :43 AM EST CBC Routine 05/06/2019 9:36 AM EST LACTIC ACID (LACTATE) Routine 05/06/2019 9:36 AM EST ARTERIAL BLOOD GAS Routine 05/06/2019 9: 36 AM EST LACTIC ACID (LACTATE) Routine 05/06/2019 8:31 AM EST XR CHEST PORTABLE Routine 05/06/2019 7:1 8 AM EST XR ABDOMEN 1 VIEW Routine 05/06/2019 7:1 7 AM EST CBC Routine 05/06/2019 6:57 AM EST MAGNESIUM Routine 05/06/2019 6:57 AM EST BASIC METABOLIC PANEL Routine 05/06/2019 6:57 AM EST PTT STAT 05/06/2019 5:36 AM EST PT-INR STAT 05/06/2019 5:36 AM EST FIBRINOGEN STAT 05/06/2019 5:36 AM EST ARTERIAL BLOOD GAS PLUS STAT 05/06/2019 5:19 AM EST LACTATE (BLOOD GAS) STAT 05/06/2019 5 :19 AM EST PTT STAT 05/06/2019 5:19 AM EST PT-INR STAT 05/06/2019 5:19 AM EST FIBRINOGEN STAT 05/06/2019 5:19 AM EST CBC STAT 05/06/2019 5:19 AM EST ARTERIAL BLOOD GAS PLUS STAT 05/06/2019 4:33 AM EST LACTATE (BLOOD GAS) STAT 05/06/2019 4 :33 AM EST PTT STAT 05/06/2019 4:33 AM EST PT-INR STAT 05/06/2019 4:33 AM EST FIBRINOGEN STAT 05/06/2019 4:33 AM EST CBC STAT 05/06/2019 4:33 AM EST BASIC METABOLIC PANEL STAT 05/06/2019 4:33 AM EST EXPLORATORY LAPAROTOMY 05/06/2019 3:53 AM EST POS-OP BLEEDING CBC Routine 05/06/2019 3:14 AM EST LACTIC ACID (LACTATE) Routine 05/06/2019 3:14 AM EST TRANSFUSE RED BLOOD CELLS Routine 05/06/2019 2:31 AM EST MRSA NASAL SCREEN Routine 05/06/2019 1:2 5 AM EST VANCOMYCIN RESISTANT ENTEROCOCCI (VRE) RECTAL SCREEN Routine 05/06/2019 1:25 AM EST CBC Routine 05/06/2019 1:25 AM EST LACTIC ACID (LACTATE) Routine 05/06/2019 1:25 AM EST LACTIC ACID (LACTATE) STAT 05/06/2019 12:15 AM EST VENOUS BLOOD GAS PLUS STAT 05/06/2019 12:11 AM EST PTT STAT 05/06/2019 12:11 AM EST PT-INR STAT 05/06/2019 12:11 AM EST CBC Routine 05/06/2019 12:01 AM EST MAGNESIUM Routine 05/06/2019 12:01 AM EST BASIC METABOLIC PANEL Routine 05/06/2019 12:01 AM EST TRANSFUSE RED BLOOD CELLS Routine 05/05/2019 10:14 PM EST PREPARE RBC Routine 05/05/2019 9:51 PM EST TRANSFUSE RED BLOOD CELLS Routine 05/05/2019 9:03 PM EST VENOUS BLOOD GAS PLUS STAT 05/05/2019 8:30 PM EST CBC STAT 05/05/2019 8:30 PM EST MAGNESIUM Routine 05/05/2019 8:30 PM EST BASIC METABOLIC PANEL Routine 05/05/2019 8:30 PM EST CBC Timed 05/05/2019 7:57 PM EST MAGNESIUM Routine 05/05/2019 7:57 PM EST BASIC METABOLIC PANEL Timed 05/05/2019 7:57 PM EST PTT Routine 05/05/2019 5:46 PM EST PT-INR Routine 05/05/2019 5:46 PM EST CBC Routine 05/05/2019 5:46 PM EST MAGNESIUM Routine 05/05/2019 5:46 PM EST LACTIC ACID (LACTATE) STAT 05/05/2019 5:46 PM EST BASIC METABOLIC PANEL Routine 05/05/2019 5:46 PM EST PTT STAT 05/05/2019 3:51 PM EST PT-INR STAT 05/05/2019 3:51 PM EST CBC AND DIFFERENTIAL STAT 05/05/2019 3:51 PM EST MAGNESIUM STAT 05/05/2019 3:51 PM EST BASIC METABOLIC PANEL STAT 05/05/2019 3:51 PM EST VENOUS BLOOD GAS PLUS STAT 05/05/2019 3:12 PM EST LACTATE (BLOOD GAS) STAT 05/05/2019 3 :12 PM EST VENOUS BLOOD GAS PLUS STAT 05/05/2019 2:09 PM EST LACTATE (BLOOD GAS) STAT 05/05/2019 2 :09 PM EST PTT STAT 05/05/2019 10:05 AM EST PT-INR STAT 05/05/2019 10:05 AM EST CBC STAT 05/05/2019 10:05 AM EST BASIC METABOLIC PANEL STAT 05/05/2019 10:05 AM EST AK REMOVE PELVIS LYMPH NODES 05/05/2019 9:48 AM EST Malignant neoplasm of endocervix Special Needs Placed per Kameron on 04/20, dr. oJhnson is not using room AK RADICAL ABD HYSTEREC+PELV NODES 05/05/2019 9:48 AM EST Malignant neoplasm of endocervix Special Needs Placed per Kameron on 04/20, dr. Johnson is not using room TYPE AND SCREEN (ABO,RH,ANTIBODY SCREEN) STAT 05/05/2019 8:52 AM EST URINE HCG Routine 05/05/2019 8:02 AM EST ANATOMIC PATHOLOGY Routine 05/05/2019 12 :00 AM EST documented in this encounter Results * Creatinine (fluid--not CSF) (05/10/2019 8:45 AM EST) FLUID CREATININE 0.51 mg/dL [facility] Other ([place] medellin fluid) 05/10/2019 8:45 AM EST 05/10/2019 11:06 AM EST Marce Cole MD BODY FLUIDS A ND STOOLS ORDERABLES Performing Organization Address [facility] Co de Phone Number [address] [address] * Chemistry Comment (05/10/2019 6:45 AM EST) Comments (Chemistry) JEANETTE FLUID [facility] 05/10/2019 6:45 AM EST 05/10/2019 6:51 AM EST Yamila GAGE LAB BLOOD ORDERABLES Performing Organization Address City/[facility] Co de Phone Number [address] [address] * Creatinine (fluid--not CSF) (05/10/2019 6:45 AM EST) FLUID CREATININE 0.57 mg/dL [facility] Comment:[facility] 05/10/2019 6:45 AM EST 05/10/2019 6:51 AM EST Yamila GAGE BODY FLUIDS AND STOO LS ORDERABLES Performing Organization Address [facility] Co de Phone Number [address] [address] * (ABNORMAL) CBC (05/09/2019 8:40 PM EST) WBC 3.60(L) 4.5 - 11.0 K/uL [facility] RBC 3.90(L) 4.00 - 5.20 M/uL [facility] HGB 11.7(L) 12.0 - 16.0 g/dL [facility] HCT 34.9(L) 36.0 - 46.0 % [facility] PLT 114(L) 150 - 400 K/uL [facility] MCV 89.5 80.0 - 100.0 fL [facility] MCH 30.0 26.0 - 34.0 pg [facility] MCHC 33.5 31.0 - 37.0 g/dL [facility] RDW 13.4 11.5 - 14.5 % [facility] MPV 9.8 8.4 - 12.0 fl [facility] NRBC 0.00 0 - 0.20 /100 WBCs [facility] ABSOLUTE NRBC 0.00 0 - 0.01 K/uL [facility] Blood 05/09/2019 8:40 PM EST 05/09/2019 8:54 PM EST Marce Cole MD LAB BLOOD ORD ERABLES Performing Organization Address [facility] de Phone Number [address] [address] * Magnesium (05/09/2019 8:40 PM EST) MAGNESIUM 1.8 1.7 - 2.4 mg/dL [facility] Blood 05/09/2019 8:40 PM EST 05/09/2019 8:54 PM EST Marce Cole MD LAB BLOOD ORD ERABLES Performing Organization Address City/[facility] Co de Phone Number [address] [address] * (ABNORMAL) Basic metabolic panel (05/09/2019 8:40 PM EST) SODIUM 139 135 - 145 mmol/L [facility] POTASSIUM 4.1 3.4 - 5.0 mmol/L [facility] CHLORIDE 102 98 - 108 mmol/L [facility] CO2 25 23 - 32 mmol/L [facility] BUN 7(L) 8 - 25 mg/dL [facility] CREATININE 0.55(L) 0.60 - 1.50 mg/dL [facility] GLUCOSE 113(H) 70 - 110 mg/dL [facility] CALCIUM 9.1 8.5 - 10.5 mg/dL [facility] EGFR >120 >59 mL/min/1. 73m2 [facility] Comment:If patient is black, multiply result by 1.159. Estimated glomerular filtration rate calculated using the CKD-EPI equation. ANION GAP 12 3 - 17 mmol/L [facility] Blood 05/09/2019 8:40 PM EST 05/09/2019 8:54 PM EST Marce Cole MD LAB BLOOD ORD ERABLES Performing Organization Address City/[facility]/ZIP Co de Phone Number [address] [address] * (ABNORMAL) CBC (05/08/2019 8:50 PM EST) WBC 3.94(L) 4.5 - 11.0 K/uL [facility] RBC 3.61(L) 4.00 - 5.20 M/uL [facility] HGB 11.1(L) 12.0 - 16.0 g/dL [facility] HCT 31.7(L) 36.0 - 46.0 % [facility] PLT 100(L) 150 - 400 K/uL [facility] MCV 87.8 80.0 - 100.0 fL [facility] MCH 30.7 26.0 - 34.0 pg [facility] MCHC 35.0 31.0 - 37.0 g/dL [facility] RDW 13.2 11.5 - 14.5 % [facility] [facility] MPV 9.9 8.4 - 12.0 fl [facility] NRBC 0.00 0 - 0.20 /100 WBCs [facility] ABSOLUTE NRBC 0.00 0 - 0.01 K/uL [facility] Blood 05/08/2019 8:50 PM EST 05/08/2019 9:27 PM EST Marce Coel MD LAB BLOOD ORD ERABLES Performing Organization Address City/[facility]/ZIP Co de Phone Number [address] [address] * Magnesium (05/08/2019 8:50 PM EST) MAGNESIUM 1.8 1.7 - 2.4 mg/dL [facility] Blood 05/08/2019 8:50 PM EST 05/08/2019 9:28 PM EST Marce Cole MD LAB BLOOD ORD ERABLES [address] [address] * (ABNORMAL) Basic metabolic panel (05/08/2019 8:50 PM EST) SODIUM 141 135 - 145 mmol/L [facility] POTASSIUM 3.3(L) 3.4 - 5.0 mmol/L [facility] CHLORIDE 102 98 - 108 mmol/L [facility] CO2 25 23 - 32 mmol/L [facility] BUN 6(L) 8 - 25 mg/dL [facility] CREATININE 0.52(L) 0.60 - 1.50 mg/dL [facility] GLUCOSE 111(H) 70 - 110 mg/dL [facility] CALCIUM 8.7 8.5 - 10.5 mg/dL [facility] EGFR >120 >59 mL/min/1. 73m2 [facility] Comment:If patient is black, multiply result by 1.159. Estimated glomerular filtration rate calculated using the CKD-EPI equation. ANION GAP 14 3 - 17 mmol/L [facility] Blood 05/08/2019 8:50 PM EST 05/08/2019 9:28 PM EST [facility] [place] LAB BLOOD ORD ERABLES [address] [address] * (ABNORMAL) CBC (05/08/2019 5:11 AM EST) WBC 2.80(L) 4.5 - 11.0 K/uL [facility] RBC 3.44(L) 4.00 - 5.20 M/uL [facility] HGB 10.6(L) 12.0 - 16.0 g/dL [facility] HCT 30.3(L) 36.0 - 46.0 % [facility] PLT 74(L) 150 - 400 K/uL [facility] MCV 88.1 80.0 - 100.0 fL [facility] MCH 30.8 26.0 - 34.0 pg [facility] MCHC 35.0 31.0 - 37.0 g/dL [facility] RDW 13.6 11.5 - 14.5 % [facility] MPV 9.6 8.4 - 12.0 fl [facility] NRBC 0.00 0 - 0.20 /100 WBCs [facility] ABSOLUTE NRBC 0.00 0 - 0.01 K/uL [facility] Blood 05/08/2019 5:11 AM EST 05/08/2019 5:44 AM EST Marce Cole MD LAB BLOOD ORD ERABLES Performing Organization Address City/[facility]/ZIP Co de Phone Number [address] [address] * Prepare Platelets (05/08/2019 12:38 AM EST) Product Code [id number] 05/08/2019 12:38 AM EST [facility] Unit Number [id number] 05/08/19 12:38 AM EST [facility] Product Status Issued, Final 05/08/2019 12:38 AM EST [facility] ABO/Rh of Unit APOS 05/08/2019 12:38 AM EST [facility] Expiration Date/Time [id number] 05/08/2019 12:38 AM EST [facility] Unit Barcode 05/08/2019 12:38 AM EST [facility] Blood Bank BLOOD BANK PRODUCT O RDERABLES Performing Organization Address [facility] Co de Phone Number [address] [address] * (ABNORMAL) CBC (05/07/2019 9:08 PM EST) WBC 3.57(L) 4.5 - 11.0 K/uL [facility] RBC 3.19(L) 4.00 - 5.20 M/uL [facility] HGB 9.6(L) 12.0 - 16.0 g/dL [facility] HCT 28.1(L) 36.0 - 46.0 % [facility] PLT 75(L) 150 - 400 K/uL [facility] MCV 88.1 80.0 - 100.0 fL [facility] MCH 30.1 26.0 - 34.0 pg [facility] MCHC 34.2 31.0 - 37.0 g/dL [facility] RDW 13.6 11.5 - 14.5 % [facility] MPV 9.6 8.4 - 12.0 fl [facility] NRBC 0.00 0 - 0.20 /100 WBCs [facility] ABSOLUTE NRBC 0.00 0 - 0.01 K/uL [facility] Blood 05/07/2019 9:08 PM EST 05/07/2019 9:15 PM EST Marce Cole MD LAB BLOOD ORD ERABLES [address] [address] * Magnesium (05/07/2019 9:08 PM EST) MAGNESIUM 2.1 1.7 - 2.4 mg/dL [facility] Blood 05/07/2019 9:08 PM EST 05/07/2019 9:16 PM EST Marce Cole MD LAB BLOOD ORD ERABLES Performing Organization Address [facility] Co de Phone Number [address] [address] * (ABNORMAL) Basic metabolic panel (05/07/2019 9:08 PM EST) SODIUM 140 135 - 145 mmol/L [facility] POTASSIUM 3.8 3.4 - 5.0 mmol/L [facility] CHLORIDE 101 98 - 108 mmol/L [facility] CO2 25 23 - 32 mmol/L [facility] BUN 5(L) 8 - 25 mg/dL [facility] CREATININE 0.55(L) 0.60 - 1.50 mg/dL [facility] GLUCOSE 87 70 - 110 mg/dL [facility] CALCIUM 8.5 8.5 - 10.5 mg/dL [facility] EGFR >120 >59 mL/min/1. 73m2 [facility] Comment:If patient is black, multiply result by 1.159. Estimated glomerular filtration rate calculated using the CKD-EPI equation. ANION GAP 14 3 - 17 mmol/L [facility] Blood 05/07/2019 9:08 PM EST 05/07/2019 9:16 PM EST Marce Cole MD LAB BLOOD ORD ERABLES Performing Organization Address City/[facility] Co de Phone Number [address] [address] * Phosphorus (05/07/2019 4:39 PM EST) PHOSPHORUS 2.7 2.6 - 4.5 mg/dL [facility] Blood 05/07/2019 4:39 PM EST 05/07/2019 4:48 PM EST Robina Barlow [employer] LAB BLOOD ORDERAB LES Performing Organization Address City/[facility] Co de Phone Number [address] [address] * Magnesium (05/07/2019 4:39 PM EST) MAGNESIUM 2.3 1.7 - 2.4 mg/dL [facility] Blood 05/07/2019 4:39 PM EST 05/07/2019 4:48 PM EST Bouchra Swartz CNP LAB BLOOD ORDERABLES Performing Organization Address [facility] Co de Phone Number [address] [address] * (ABNORMAL) CBC (05/07/2019 4:39 PM EST) WBC 3.67(L) 4.5 - 11.0 K/uL [facility] RBC 3.24(L) 4.00 - 5.20 M/uL [facility] HGB 9.8(L) 12.0 - 16.0 g/dL [facility] HCT 28.5(L) 36.0 - 46.0 % [facility] PLT 82(L) 150 - 400 K/uL [facility] MCV 88.0 80.0 - 100.0 fL [facility] MCH 30.2 26.0 - 34.0 pg [facility] MCHC 34.4 31.0 - 37.0 g/dL [facility] RDW 13.8 11.5 - 14.5 % [facility] MPV 10.0 8.4 - 12.0 fl [facility] NRBC 0.00 0 - 0.20 /100 WBCs [facility] ABSOLUTE NRBC 0.00 0 - 0.01 K/uL [facility] Blood 05/07/2019 4:39 PM EST 05/07/2019 4:48 PM EST Bouchra Swartz CNP LAB BLOOD ORDERABLES Performing Organization Address [facility]/ZIP Co de Phone Number [address] [address] * Potassium (05/07/2019 2:29 PM EST) POTASSIUM 4.0 3.4 - 5.0 mmol/L [facility] Blood 05/07/2019 2:29 PM EST 05/07/2019 2:44 PM EST [facility] BLOOD ORDERAB LES Performing Organization Address City/[facility] Co de Phone Number [address] [address] * Potassium (05/07/2019 9:43 AM EST) POTASSIUM 3.6 3.4 - 5.0 mmol/L [facility] Blood 05/07/2019 9:43 AM EST 05/07/2019 9:53 AM EST Robina Agustina [facility] LAB BLOOD ORDERAB LES Performing Organization Address [facility] Co de Phone Number [address] [address] * Magnesium (05/07/2019 9:43 AM EST) MAGNESIUM 1.8 1.7 - 2.4 mg/dL [facility] Blood 05/07/2019 9:43 AM EST 05/07/2019 9:53 AM EST Bouchra Swartz [facility] LAB BLOOD ORDERABLES Performing Organization Address City/[facility]/ZIP Co de Phone Number [address] [address] * Prepare RBC (05/07/2019 6:44 AM EST) Product Code [id number] 05/07/2019 4:35 AM EST [facility] Unit Number [id number] 05/07/19 20 4:35 AM EST [facility] Crossmatch Interpretation Compatible 05/06/2019 3:57 AM EST [facility] Product Status Issued, Final 020 4:35 AM EST [facility] ABO/Rh of Unit APOS 05/07/2019 4:35 AM EST [facility] Expiration Date/Time [id number] 05/07/2019 4:35 AM EST [facility] Unit Barcode 05/07/2019 4:35 AM EST [facility] Product Code [id number] 05/07/2019 6:44 AM EST [facility] Unit Number [id number] 05/07/19 6:44 AM EST [facility] Crossmatch Interpretation Compatible 05/06/2019 6:36 AM EST [facility] Product Status No Longer Ready 05/07 6:44 AM EST [facility] ABO/Rh of Unit APOS 05/07/2019 6:44 AM EST [facility] Expiration Date/Time [id number] 05/07/2019 6:44 AM EST [facility] Unit Barcode 05/07/2019 6:44 AM EST [facility] Product Code [id number] 05/07/2019 6:44 AM EST [facility] Unit Number [id number] 05/07/19 6:44 AM EST [facility] Crossmatch Interpretation Compatible 05/06/2019 6:36 AM EST [facility] Product Status No Longer Ready 05/07 6:44 AM EST [facility] ABO/Rh of Unit APOS 05/07/2019 6:44 AM EST [facility] Expiration Date/Time [id number] 05/07/2019 6:44 AM EST [facility] Unit Barcode 05/07/2019 6:44 AM EST [facility] Product Code [id number] 05/07/2019 4:35 AM EST [facility] Unit Number [id number] 05/07/19 4:35 AM EST [facility] Crossmatch Interpretation Compatible 05/06/2019 3:57 AM EST [facility] Product Status Issued, Final 020 4:35 AM EST [facility] ABO/Rh of Unit APOS 05/07/2019 4:35 AM EST [facility] Expiration Date/Time [id number] 05/07/2019 4:35 AM EST [facility] Unit Barcode 05/07/2019 4:35 AM EST [facility] 05/05/2019 10: 06 AM EST Blood Bank BLOOD BANK PRODUCT O RDERABLES [facility] [address] [place] [address] * Prepare RBC (05/07/2019 6:44 AM EST) Product Code [id number] 05/07/2019 6:44 AM EST [facility] Unit Number [id number] 05/07/19 6:44 AM EST [facility] Crossmatch Interpretation Compatible 05/06/2019 3:46 AM EST [facility] Product Status No Longer Ready 05/07 6:44 AM EST [facility] ABO/Rh of Unit APOS 05/07/2019 6:44 AM EST [facility] Expiration Date/Time [id number] 05/07/2019 6:44 AM EST [facility] Unit Barcode 6200 05/07/2019 6:44 AM EST [facility] Product Code [id number] 05/07/2019 6:44 AM EST [facility] Unit Number [id number] 05/07/19 6:44 AM EST [facility] Crossmatch Interpretation Compatible 05/06/2019 6:36 AM EST [facility] Product Status No Longer Ready 05/07 6:44 AM EST [facility] ABO/Rh of Unit APOS 05/07/2019 6:44 AM EST [facility] Expiration Date/Time [id number] 05/07/2019 6:44 AM EST [facility] Unit Barcode 6200 05/07/2019 6:44 AM EST [facility] Product Code [id number] 05/07/2019 4:35 AM EST [facility] Unit Number [id number] 05/07/19 4:35 AM EST [facility] Crossmatch Interpretation Compatible 05/06/2019 3:46 AM EST [facility] Product Status Issued, Final 020 4:35 AM EST [facility] ABO/Rh of Unit APOS 05/07/2019 4:35 AM EST [facility] Expiration Date/Time [id number] 05/07/2019 4:35 AM EST [facility] Unit Barcode 6200 05/07/2019 4:35 AM EST [facility] Product Code [id number] 05/07/2019 6:44 AM EST [facility] Unit Number [id number] 05/07/19 6:44 AM EST [facility] Crossmatch Interpretation Compatible 05/06/2019 6:36 AM EST [facility] Product Status No Longer Ready 05/07 6:44 AM EST [facility] ABO/Rh of Unit APOS 05/07/2019 6:44 AM EST [facility] Expiration Date/Time [id number] 05/07/2019 6:44 AM EST [facility] Unit Barcode 6200 05/07/2019 6:44 AM EST [facility] 05/05/2019 10: 06 AM EST Ana Lamas [facility] BLOOD BANK PRODUCT O RDERABLES [address] [address] * Prepare Platelets (05/07/2019 4:35 AM EST) Product Code [id number] 05/07/2019 4:35 AM EST [facility] Unit Number [id number] 05/07/19 4:35 AM EST [facility] Product Status Issued, Final 05/07/2019 4:35 AM EST [facility] ABO/Rh of Unit APOS 05/07/2019 4:35 AM EST [facility] Expiration Date/Time [id number] 05/07/2019 4:35 AM EST [facility] Unit Barcode 6200 05/07/2019 4:35 AM EST [facility] Blood Bank BLOOD BANK PRODUCT O RDERABLES [address] [address] * Prepare Plasma (05/07/2019 4:35 AM EST) Product Code [id number] 05/07/2019 4:35 AM EST [facility] Unit Number [id number] 05/07/19 4:35 AM EST [facility] Product Status Issued, Final 05/07/2019 4:35 AM EST [facility] ABO/Rh of Unit ANEG 05/07/2019 4:35 AM EST [facility] Expiration Date/Time [id number] 05/07/2019 4:35 AM EST [facility] Unit Barcode 05/07/2019 4:35 AM EST [facility] Product Code [id number] 05/06/2019 6:33 AM EST [facility] Unit Number [id number] 05/06/19 6:33 AM EST [facility] Product Status No Longer Ready 05/06/2019 6:33 AM EST [facility] ABO/Rh of Unit APOS 05/06/2019 6:33 AM EST [facility] Expiration Date/Time [id number] 05/06/2019 6:33 AM EST [facility] Unit Barcode 05/06/2019 6:33 AM EST [facility] Product Code [id number] 05/07/2019 4:35 AM EST [facility] Unit Number [id number] 05/07/19 4:35 AM EST [facility] Product Status Issued, Final 05/07/2019 4:35 AM EST [facility] ABO/Rh of Unit APOS 05/07/2019 4:35 AM EST [facility] Expiration Date/Time [id number] 05/07/2019 4:35 AM EST [facility] Unit Barcode 05/07/2019 4:35 AM EST [facility] Product Code [id number] 05/06/2019 6:33 AM EST [facility] Unit Number [id number] 05/06/19 6:33 AM EST [facility] Product Status No Longer Ready 05/06/2019 6:33 AM EST [facility] ABO/Rh of Unit APOS 05/06/2019 6:33 AM EST [facility] Expiration Date/Time [id number] 05/06/2019 6:33 AM EST [facility] Unit Barcode 05/06/2019 6:33 AM EST [facility] Blood Bank BLOOD BANK PRODUCT O RDERABLES [address] [address] * Prepare Plasma (05/07/2019 4:35 AM EST) Product Code [id number] 05/07/2019 4:35 AM EST [facility] Unit Number [id number] 05/07/19 4:35 AM EST [facility] Product Status Issued, Final 05/07/2019 4:35 AM EST [facility] ABO/Rh of Unit APOS 05/07/2019 4:35 AM EST [facility] Expiration Date/Time [id number] 05/07/2019 4:35 AM EST [facility] Unit Barcode 05/07/2019 4:35 AM EST [facility] Product Code [id number] 05/07/2019 4:35 AM EST [facility] Unit Number [id number] 05/07/19 4:35 AM EST [facility] Product Status Issued, Final 05/07/2019 4:35 AM EST [facility] ABO/Rh of Unit APOS 05/07/2019 4:35 AM EST [facility] Expiration Date/Time [id number] 05/07/2019 4:35 AM EST [facility] Unit Barcode 05/07/2019 4:35 AM EST [facility] Product Code [id number] 05/07/2019 4:35 AM EST [facility] Unit Number [id number] 05/07/19 4:35 AM EST [facility] Product Status Issued, Final 05/07/2019 4:35 AM EST [facility] ABO/Rh of Unit APOS 05/07/2019 4:35 AM EST [facility] Expiration Date/Time [id number] 05/07/2019 4:35 AM EST [facility] Unit Barcode 05/07/2019 4:35 AM EST [facility] Product Code [id number] 05/07/2019 4:35 AM EST [facility] Unit Number [id number] 05/07/19 4:35 AM EST [facility] Product Status Issued, Final 05/07/2019 4:35 AM EST [facility] ABO/Rh of Unit APOS 05/07/2019 4:35 AM EST [facility] Expiration Date/Time [id number] 05/07/2019 4:35 AM EST [facility] Unit Barcode 05/07/2019 4:35 AM EST [facility] Ana Lamas [employer] BLOOD BANK PRODUCT O RDERABLES Performing Organization Address City/State/[facility] Co de Phone Number [address] [address] * Prepare RBC (05/07/2019 4:35 AM EST) Product Code [id number] 05/07/2019 4:35 AM EST [facility] Unit Number [id number] 05/07/19 20 4:35 AM EST [facility] Crossmatch Interpretation Compatible 05/06/2019 2:31 AM EST [facility] Product Status Issued, Final 020 4:35 AM EST [facility] ABO/Rh of Unit OPOS 05/07/2019 4:35 AM EST [facility] Expiration Date/Time [id number] 05/07/2019 4:35 AM EST [facility] Unit Barcode 5100 05/07/2019 4:35 AM EST [facility] 05/05/2019 10: 06 AM EST Marce Cole MD BLOOD BANK AK ODUCT ORDERABLES Performing Organization Address [facility] Co de Phone Number [address] [address] * PT-INR (05/07/2019 4:32 AM EST) PT 14.4 11.5 - 14.5 sec [facility] INR 1.1 0.9 - 1.1 [facility] Blood 05/07/2019 4:32 AM EST 05/07/2019 4:39 AM EST Ana Lamas [employer] LAB BLOOD ORDERABLES Performing Organization Address [facility] Co de Phone Number [address] [address] * PTT (05/07/2019 4:32 AM EST) APTT 29.4 22.0 - 36.0 sec [facility] Comment: Due to new reagent, the standard PTT heparin therapeutic range has changed to 70-100 seconds (instead of 60-80 seconds). Check MAR for the target range that is ordered for your patient. Blood 05/07/2019 4:32 AM EST 05/07/2019 4:39 AM EST Ana Samina Arthurjoey [employer] LAB BLOOD ORDERABLES [address] [address] * (ABNORMAL) Phosphorus (05/07/2019 2:45 AM EST) PHOSPHORUS 1.3(L) 2.6 - 4.5 mg/dL [facility] Blood 05/07/2019 2:45 AM EST 05/07/2019 2:56 AM EST Ana Lamas [employer] LAB BLOOD ORDERABLES [address] [address] * Magnesium (05/07/2019 2:45 AM EST) MAGNESIUM 1.8 1.7 - 2.4 mg/dL [facility] Blood 05/07/2019 2:45 AM EST 05/07/2019 2:56 AM EST Bouchra Swartz [employer] LAB BLOOD ORDERABLES [address] [address] * (ABNORMAL) CBC (05/07/2019 2:45 AM EST) WBC 4.04(L) 4.5 - 11.0 K/uL [facility] RBC 3.20(L) 4.00 - 5.20 M/uL [facility] HGB 9.6(L) 12.0 - 16.0 g/dL [facility] HCT 27.9(L) 36.0 - 46.0 % [facility] PLT 71(L) 150 - 400 K/uL [facility] MCV 87.2 80.0 - 100.0 fL [facility] MCH 30.0 26.0 - 34.0 pg [facility] MCHC 34.4 31.0 - 37.0 g/dL [facility] RDW 14.0 11.5 - 14.5 % [facility] MPV 9.5 8.4 - 12.0 fl [facility] NRBC 0.00 0 - 0.20 /100 WBCs [facility] ABSOLUTE NRBC 0.00 0 - 0.01 K/uL [facility] Blood 05/07/2019 2:45 AM EST 05/07/2019 2:57 AM EST Bouchra Swartz CNP LAB BLOOD ORDERABLES Performing Organization Address [facility] Co de Phone Number [address] [address] * (ABNORMAL) Basic metabolic panel (05/07/2019 2:45 AM EST) SODIUM 140 135 - 145 mmol/L [facility] POTASSIUM 3.3(L) 3.4 - 5.0 mmol/L [facility] CHLORIDE 104 98 - 108 mmol/L [facility] CO2 24 23 - 32 mmol/L [facility] BUN 6(L) 8 - 25 mg/dL [facility] CREATININE 0.63 0.60 - 1.50 mg/dL [facility] GLUCOSE 87 70 - 110 mg/dL [facility] CALCIUM 7.7(L) 8.5 - 10.5 mg/dL [facility] EGFR >120 >59 mL/min/1. 73m2 [facility] Comment:If patient is black, multiply result by 1.159. Estimated glomerular filtration rate calculated using the CKD-EPI equation. ANION GAP 12 3 - 17 mmol/L [facility] Blood 05/07/2019 2:45 AM EST 05/07/2019 2:56 AM EST Marce Cole MD LAB BLOOD ORD ERABLES Performing Organization Address City/[facility]/ZIP Co de Phone Number [address] [address] * Prepare RBC (05/07/2019 12:36 AM EST) Product Code [id number] 05/07/2019 12:36 AM EST [facility] Unit Number [id number] 05/07/19 20 12:36 AM EST [facility] Crossmatch Interpretation Compatible 05/05/2019 8:35 PM EST [facility] Product Status Issued, Final 020 12:36 AM EST [facility] ABO/Rh of Unit APOS 05/07/2019 12:36 AM EST [facility] Expiration Date/Time [id number] 05/07/2019 12:36 AM EST [facility] Unit Barcode 05/07/2019 12:36 AM EST [facility] Product Code [id number] 05/07/2019 12:36 AM EST [facility] Unit Number [id number] 05/07/19 20 12:36 AM EST [facility] Crossmatch Interpretation Compatible 05/05/2019 8:35 PM EST [facility] Product Status Issued, Final 020 12:36 AM EST [facility] ABO/Rh of Unit APOS 05/07/2019 12:36 AM EST [facility] Expiration Date/Time [id number] 05/07/2019 12:36 AM EST [facility] Unit Barcode 05/07/2019 12:36 AM EST [facility] 05/05/2019 10: 06 AM EST Sal Shaw MD, [facility] PRODUCT O RDERABLES [address] [address] * (ABNORMAL) CBC (05/06/2019 10:36 PM EST) WBC 4.37(L) 4.5 - 11.0 K/uL [facility] RBC 3.19(L) 4.00 - 5.20 M/uL [facility] HGB 9.7(L) 12.0 - 16.0 g/dL [facility] HCT 27.9(L) 36.0 - 46.0 % [facility] PLT 70(L) 150 - 400 K/uL [facility] MCV 87.5 80.0 - 100.0 fL [facility] MCH 30.4 26.0 - 34.0 pg [facility] MCHC 34.8 31.0 - 37.0 g/dL [facility] RDW 14.0 11.5 - 14.5 % [facility] MPV 9.2 8.4 - 12.0 fl [facility] NRBC 0.00 0 - 0.20 /100 WBCs [facility] ABSOLUTE NRBC 0.00 0 - 0.01 K/uL [facility] Blood 05/06/2019 10:3 6 PM EST 05/06/2019 11:32 PM EST Ana Lamas [employer] LAB BLOOD ORDERABLES Performing Organization Address City/[facility] Co de Phone Number [address] [address] * (ABNORMAL) Magnesium (05/06/2019 3:52 PM EST) MAGNESIUM 1.6(L) 1.7 - 2.4 mg/dL [facility] Blood 05/06/2019 3:52 PM EST 05/06/2019 4:07 PM EST Bouchra Swartz CNP LAB BLOOD ORDERABLES Performing Organization Address [facility] Co de Phone Number [address] [address] * (ABNORMAL) CBC (05/06/2019 3:51 PM EST) WBC 3.77(L) 4.5 - 11.0 K/uL [facility] RBC 3.29(L) 4.00 - 5.20 M/uL [facility] HGB 10.0(L) 12.0 - 16.0 g/dL [facility] [facility] HCT 29.2(L) 36.0 - 46.0 % [facility] PLT 77(L) 150 - 400 K/uL [facility] MCV 88.8 80.0 - 100.0 fL [facility] MCH 30.4 26.0 - 34.0 pg [facility] MCHC 34.2 31.0 - 37.0 g/dL [facility] RDW 13.9 11.5 - 14.5 % [facility] MPV 9.3 8.4 - 12.0 fl [facility] NRBC 0.00 0 - 0.20 /100 WBCs [facility] ABSOLUTE NRBC 0.00 0 - 0.01 K/uL [facility] Blood 05/06/2019 3:51 PM EST 05/06/2019 4:06 PM EST Bouchra Swartz CNP LAB BLOOD ORDERABLES Performing Organization Address City/[facility] Co de Phone Number [address] [address] * Lactate (05/06/2019 3:51 PM EST) LACTIC ACID (MMOL/L) 0.7 0.5 - 2.0 mmol/L [facility] Blood 05/06/2019 3:51 PM EST 05/06/2019 4:06 PM EST Marce Cole MD LAB BLOOD ORD ERABLES [address] [address] * Ionized calcium (05/06/2019 12:37 PM EST) IONIZED CALCIUM 1.26 1.14 - 1.30 mmol/L [facility] Blood 05/06/2019 12:3 7 PM EST 05/06/2019 12:47 PM EST Bouchra Swartz CNP LAB BLOOD ORDERABLES Performing Organization Address City/[facility] Co de Phone Number [address] [address] * PTT (05/06/2019 12:37 PM EST) APTT 29.6 22.0 - 36.0 sec [facility] Comment: Due to new reagent, the standard PTT heparin therapeutic range has changed to 70-100 seconds (instead of 60-80 seconds). Check MAR for the target range that is ordered for your patient. Blood 05/06/2019 12:3 7 PM EST 05/06/2019 12:47 PM EST Bouchra Swartz CNP LAB BLOOD ORDERABLES Performing Organization Address City/[facility] Co de Phone Number [address] [address] * (ABNORMAL) PT-INR (05/06/2019 12:37 PM EST) PT 15.5(H) 11.5 - 14.5 sec [facility] INR 1.2(H) 0.9 - 1.1 [facility] Blood 05/06/2019 12:3 7 PM EST 05/06/2019 12:47 PM EST Bouchra Swartz [employer] LAB BLOOD ORDERABLES Performing Organization Address City/[facility]/ZIP Co de Phone Number [address] [address] * (ABNORMAL) Arterial blood gas (05/06/2019 11:43 AM EST) FIO2 0.30 FIO2/L min [facility] PH 7.38 7.35 - 7.45 [facility] PCO2 42 35 - 42 mm[Hg] [facility] PO2 115(H) 80 - 100 mm[Hg] [facility] Base Excess, unspecified NEG 0.0 - 3.0 mmol/L [facility] Comment:0.9NEG HCO3, unspecified 24 24 - 30 mmol/L [facility] Blood 05/06/2019 11:4 3 AM EST 05/06/2019 11:54 AM EST Bouchra Swartz [facility] LAB BLOOD ORDERABLES Performing Organization Address [facility] Co de Phone Number [address] [address] * (ABNORMAL) Arterial blood gas (05/06/2019 9:36 AM EST) FIO2 0.35 FIO2/L min [facility] PH 7.59(H) 7.35 - 7.45 [facility] PCO2 25(L) 35 - 42 mm[Hg] [facility] PO2 190(H) 80 - 100 mm[Hg] [facility] Base Excess, unspecified 2.0 0.0 - 3.0 mmol/L [facility] HCO3, unspecified 23(L) 24 - 30 mmol/L [facility] Blood 05/06/2019 9:36 AM EST 05/06/2019 9:50 AM EST Bouchra Swartz [facility] LAB BLOOD ORDERABLES Performing Organization Address City/[facility]/ZIP Co de Phone Number [address] [address] * (ABNORMAL) CBC (05/06/2019 9:36 AM EST) WBC 3.29(L) 4.5 - 11.0 K/uL [facility] RBC 3.37(L) 4.00 - 5.20 M/uL [facility] HGB 10.2(L) 12.0 - 16.0 g/dL [facility] HCT 29.3(L) 36.0 - 46.0 % [facility] PLT 67(L) 150 - 400 K/uL [facility] MCV 86.9 80.0 - 100.0 fL [facility] MCH 30.3 26.0 - 34.0 pg [facility] MCHC 34.8 31.0 - 37.0 g/dL [facility] RDW 13.8 11.5 - 14.5 % [facility] MPV 9.7 8.4 - 12.0 fl [facility] NRBC 0.00 0 - 0.20 /100 WBCs [facility] ABSOLUTE NRBC 0.00 0 - 0.01 K/uL [facility] Blood 05/06/2019 9:36 AM EST 05/06/2019 11:17 AM EST Bouchra Swartz CNP LAB BLOOD ORDERABLES Performing Organization Address City/[facility]/ZIP Co de Phone Number [address] [address] * (ABNORMAL) Lactate (05/06/2019 9:36 AM EST) LACTIC ACID (MMOL/L) 2.5(H) 0.5 - 2.0 mmol/L [facility] Blood 05/06/2019 9:36 AM EST 05/06/2019 11:17 AM EST Marce Cole MD LAB BLOOD ORD ERABLES Performing Organization Address City/[facility]/ZIP Co de Phone Number [address] [address] * (ABNORMAL) Lactate (05/06/2019 8:31 AM EST) LACTIC ACID (MMOL/L) 2.2(H) 0.5 - 2.0 mmol/L [facility] Blood 05/06/2019 8:31 AM EST 05/06/2019 8:42 AM EST Bouchra Swartz [employer] LAB BLOOD ORDERABLES [facility] [address] [place] [address] * XR Chest Portable (05/06/2019 7:18 AM EST) Anatomical Region Laterality Modality Chest Computed Radiogr aphy 05/06/2019 9:37 AM EST Impressions 05/06/2019 11:39 AM EST Endotracheal tube that terminates 7 mm from [...] report originally created by Dr. Kong Zuleta. Narrative 05/06/2019 11:39 AM EST TECHNIQUE: XR CHEST PORTABLE COMPARISON: CT PET CHEST WITH CONTRAST ? FINDINGS: Lines/tubes: There is an endotracheal tube [...] size. Bones: The thoracic skeleton is unremarkable. Procedure Note Clovis Garcia MD - 05/06/2019 TECHNIQUE: XR CHEST PORTABLE COMPARISON: CT PET CHEST WITH CONTRAST FINDINGS: Lines/tubes: There is an endotracheal tube that terminates 7 mm thecarina. Retracting the tube 2 cm is recommended. There is an epidural catheter inplace that terminates over the lower thoracic spine. There is an enteric tubethat crosses the diaphragm, the distal tip is not seen on this radiograph.There is a right-sided IJ introducer sheath in place that terminates at thecavoatrial junction. Lungs: Rotated radiograph with mildly low lung volumes.There isasymmetric density over the left lower lung likely secondary to asymmetricsuperimposed soft tissues. Minimal pulmonary edema. Pleura: There is no pleural effusion or pneumothorax. Heart and mediastinum: The cardiac mediastinal silhouette is at the upperlimit normal in size. Bones: The thoracic skeleton is unremarkable. IMPRESSION: Endotracheal tube that terminates 7 mm from the ronen. Retracting thetracheal tube 2 cm is recommended. Lines and tubes as otherwise described in thebody of this report. Minimal pulmonary edema. RECOMMENDATIONS: Endotracheal tube terminating 7 mm from the ronen. Recommend retracting 2cm. The findings in this report were reported at the time of interpretation Seymour Swartz NP, who responded indicating that the communication wasunderstood. ATTESTATION: I, Dr. Clovis Garcia as teaching physician, have reviewedthe images for this case and if necessary edited the report originally createdby Dr. Kong Zuleta. Bouchra Swartz [employer] IMG XR CHEST * XR ABDOMEN 1 VIEW (05/06/2019 7:17 AM EST) Anatomical Region Laterality Modality Abdomen Computed Radiogr aphy 05/06/2019 8:38 AM EST Impressions 05/06/2019 12:39 PM EST There is an enteric tube terminating below the diaphragm, with distal tip in the distal stomach. There is a partially imaged epidural catheter. Nonobstructive bowel gas pattern. ATTESTATION: Dr. Amie Herrera as teaching physician, have reviewed the images for this case and if necessary edited the report originally created by Dr. Barak Raya. Narrative 05/06/2019 12:39 PM EST XR ABDOMEN 1 VIEW Single AP view of the abdomen COMPARISON: CT PET ABDOMEN/PELVIS WITH CONTRAST Procedure Note Amie Flynn MD - 05/06/2019 XR ABDOMEN 1 VIEW Single AP view of the abdomen COMPARISON: CT PET ABDOMEN/PELVIS WITH CONTRAST IMPRESSION: There is an enteric tube terminating below the diaphragm, with distal tipin the distal stomach. There is a partially imaged epidural catheter. Nonobstructive bowel gas pattern. ATTESTATION: I, Dr. Amie Flynn as teaching physician, have reviewedthe images for this case and if necessary edited the report originally createdby Dr. Barak Raya. Bouchra Swartz [employer] IMG XR ABDOMEN * Magnesium (05/06/2019 6:57 AM EST) MAGNESIUM 1.7 1.7 - 2.4 mg/dL [facility] Blood 05/06/2019 6:57 AM EST 05/06/2019 7:07 AM EST Marce Cole MD LAB BLOOD ORD ERABLES Performing Organization Address [facility] Co de Phone Number [address] [address] * (ABNORMAL) Basic metabolic panel (05/06/2019 6:57 AM EST) SODIUM 139 135 - 145 mmol/L [facility] POTASSIUM 4.0 3.4 - 5.0 mmol/L [facility] CHLORIDE 107 98 - 108 mmol/L [facility] CO2 22(L) 23 - 32 mmol/L [facility] BUN 9 8 - 25 mg/dL [facility] CREATININE 0.70 0.60 - 1.50 mg/dL [facility] GLUCOSE 146(H) 70 - 110 mg/dL [facility] CALCIUM 10.7(H) 8.5 - 10.5 mg/dL [facility] EGFR 118 >59 mL/min/1. 73m2 [facility] Comment:If patient is black, multiply result by 1.159. Estimated glomerular filtration rate calculated using the CKD-EPI equation. ANION GAP 10 3 - 17 mmol/L [facility] Blood 05/06/2019 6:57 AM EST 05/06/2019 7:07 AM EST Marce Cole MD LAB BLOOD ORD ERABLES Performing Organization Address [facility] Co de Phone Number [address] [address] * (ABNORMAL) CBC (05/06/2019 6:57 AM EST) WBC 2.83(L) 4.5 - 11.0 K/uL [facility] RBC 3.13(L) 4.00 - 5.20 M/uL [facility] HGB 9.4(L) 12.0 - 16.0 g/dL [facility] HCT 28.1(L) 36.0 - 46.0 % [facility] PLT 57(L) 150 - 400 K/uL [facility] MCV 89.8 80.0 - 100.0 fL [facility] MCH 30.0 26.0 - 34.0 pg [facility] MCHC 33.5 31.0 - 37.0 g/dL [facility] RDW 13.7 11.5 - 14.5 % [facility] MPV 9.2 8.4 - 12.0 fl [facility] NRBC 0.00 0 - 0.20 /100 WBCs [facility] ABSOLUTE NRBC 0.00 0 - 0.01 K/uL [facility] Blood 05/06/2019 6:57 AM EST 05/06/2019 7:06 AM EST Marce Cole MD LAB BLOOD ORD ERABLES Performing Organization Address City/[facility] Co de Phone Number [address] [address] * Fibrinogen (05/06/2019 5:36 AM EST) FIBRINOGEN 218 150 - 400 mg/dL [facility] Blood 05/06/2019 5:36 AM EST 05/06/2019 5:42 AM EST Jabari Guerrero MD LAB BLOOD ORDERAB LES Performing Organization Address City/[facility]/ZIP Co de Phone Number [address] [address] * PTT (05/06/2019 5:36 AM EST) APTT 35.3 22.0 - 36.0 sec [facility] Comment: Due to new reagent, the standard PTT heparin therapeutic range has changed to 70-100 seconds (instead of 60-80 seconds). Check MAR for the target range that is ordered for your patient. Blood 05/06/2019 5:36 AM EST 05/06/2019 5:42 AM EST Jabari Guerrero MD LAB BLOOD ORDERAB LES Performing Organization Address [facility] Co de Phone Number [address] [address] * (ABNORMAL) PT-INR (05/06/2019 5:36 AM EST) PT 16.6(H) 11.5 - 14.5 sec [facility] INR 1.4(H) 0.9 - 1.1 [facility] [place] Blood 05/06/2019 5:36 AM EST 05/06/2019 5:42 AM EST Jabari Guerrero MD LAB BLOOD ORDERAB LES Performing Organization Address [facility] de Phone Number [address] [address] * Fibrinogen (05/06/2019 5:19 AM EST) FIBRINOGEN 202 150 - 400 mg/dL [facility] Blood 05/06/2019 5:19 AM EST 05/06/2019 5:26 AM EST Jabari Guerrero MD LAB BLOOD ORDERAB LES Performing Organization Address [facility] de Phone Number [address] [address] * (ABNORMAL) PTT (05/06/2019 5:19 AM EST) APTT 36.2(H) 22.0 - 36.0 sec [facility] Comment: Due to new reagent, the standard PTT heparin therapeutic range has changed to 70-100 seconds (instead of 60-80 seconds). Check MAR for the target range that is ordered for your patient. Blood 05/06/2019 5:19 AM EST 05/06/2019 5:26 AM EST Jabari Guerrero MD LAB BLOOD ORDERAB LES [address] [address] * (ABNORMAL) PT-INR (05/06/2019 5:19 AM EST) PT 17.7(H) 11.5 - 14.5 sec [facility] INR 1.5(H) 0.9 - 1.1 [facility] [place] Blood 05/06/2019 5:19 AM EST 05/06/2019 5:26 AM EST Jabari Guerrero MD LAB BLOOD ORDERAB LES Performing Organization Address City/[facility] Co de Phone Number [address] [address] * (ABNORMAL) CBC (05/06/2019 5:19 AM EST) WBC 5.28 4.5 - 11.0 K/uL [facility] RBC 3.31(L) 4.00 - 5.20 M/uL [facility] HGB 10.1(L) 12.0 - 16.0 g/dL [facility] HCT 29.9(L) 36.0 - 46.0 % [facility] PLT 73(L) 150 - 400 K/uL [facility] MCV 90.3 80.0 - 100.0 fL [facility] MCH 30.5 26.0 - 34.0 pg [facility] MCHC 33.8 31.0 - 37.0 g/dL [facility] RDW 13.7 11.5 - 14.5 % [facility] MPV 9.3 8.4 - 12.0 fl [facility] NRBC 0.00 0 - 0.20 /100 WBCs [facility] ABSOLUTE NRBC 0.00 0 - 0.01 K/uL [facility] Blood 05/06/2019 5:19 AM EST 05/06/2019 5:25 AM EST Jabari Guerrero MD LAB BLOOD ORDERAB LES Performing Organization Address City/[facility]/ZIP Co de Phone Number [address] [address] * (ABNORMAL) Lactate (blood gas) (05/06/2019 5:19 AM EST) Lactate, blood 3.0(H) 0.5 - 2.0 mmol/L [facility] Blood 05/06/2019 5:19 AM EST 05/06/2019 5:26 AM EST Jabari Guerrero MD LAB BLOOD ORDERAB LES Performing Organization Address [facility] Co de Phone Number [address] [address] * (ABNORMAL) Arterial blood gas PLUS (05/06/2019 5:19 AM EST) FIO2 UNSPEC. FIO2/L min [facility] PH 7.39 7.35 - 7.45 [facility] PCO2 35 35 - 42 mm[Hg] [facility] PO2 192(H) 80 - 100 mm[Hg] [facility] Base Excess, unspecified NEG 0.0 - 3.0 mmol/L [facility] Comment:3.7NEG HCO3, unspecified 21(L) 24 - 30 mmol/L [facility] SODIUM 138 135 - 145 mmol/L [facility] POTASSIUM 4.1 3.5 - 5.0 mmol/L [facility] IONIZED CALCIUM 0.87(L) 1.14 - 1.30 mmol/L [facility] Glucose, whole bld 178(H) 70 - 110 mg/dL [facility] HGB (BG) 10.4(L) 12.0 - 16.0 g/dl [facility] O2 Sat (SO2, arterial) 98.7 94.0 - 99.0 % [facility] Blood 05/06/2019 5:19 AM EST 05/06/2019 5:26 AM EST Jabari Guerrero MD LAB BLOOD ORDERAB LES Performing Organization Address [facility] Co de Phone Number [address] [address] * Transfuse RBC (05/06/2019 4:45 AM EST) Marce Cole MD NURSING TREAT MENT ORDERABLES - BLOOD ADMIN Performing Organization Address City/[facility] Co de Phone Number [employer] * Transfuse RBC (05/06/2019 4:45 AM EST) Marce Cole MD NURSING TREAT MENT ORDERABLES - BLOOD ADMIN * (ABNORMAL) Basic metabolic panel (05/06/2019 4:33 AM EST) SODIUM 142 135 - 145 mmol/L [facility] POTASSIUM 4.6 3.4 - 5.0 mmol/L [facility] CHLORIDE 113(H) 98 - 108 mmol/L [facility] CO2 19(L) 23 - 32 mmol/L [facility] BUN 10 8 - 25 mg/dL [facility] CREATININE 0.54(L) 0.60 - 1.50 mg/dL [facility] GLUCOSE 229(H) 70 - 110 mg/dL [facility] CALCIUM 6.9(L) 8.5 - 10.5 mg/dL [facility] EGFR >120 >59 mL/min/1. 73m2 [facility] Comment:If patient is black, multiply result by 1.159. Estimated glomerular filtration rate calculated using the CKD-EPI equation. ANION GAP 10 3 - 17 mmol/L [facility] Blood 05/06/2019 4:33 AM EST 05/06/2019 4:39 AM EST Marce Cole MD LAB BLOOD ORD ERABLES Performing Organization Address City/[facility] Co de Phone Number [address] [address] * (ABNORMAL) Fibrinogen (05/06/2019 4:33 AM EST) FIBRINOGEN 118(L) 150 - 400 mg/dL [facility] Blood 05/06/2019 4:33 AM EST 05/06/2019 4:39 AM EST Marce Cole MD LAB BLOOD ORD ERABLES Performing Organization Address City/[facility]/ZIP Co de Phone Number [address] [address] * (ABNORMAL) PTT (05/06/2019 4:33 AM EST) APTT 40.2(H) 22.0 - 36.0 sec [facility] Comment: Due to new reagent, the standard PTT heparin therapeutic range has changed to 70-100 seconds (instead of 60-80 seconds). Check MAR for the target range that is ordered for your patient. Blood 05/06/2019 4:33 AM EST 05/06/2019 4:39 AM EST Marce Cole MD LAB BLOOD ORD ERABLES Performing Organization Address [facility]/ZIP Co de Phone Number [address] [address] * (ABNORMAL) PT-INR (05/06/2019 4:33 AM EST) PT 23.8(H) 11.5 - 14.5 sec [facility] INR 2.1(H) 0.9 - 1.1 [facility] [place] Blood 05/06/2019 4:33 AM EST 05/06/2019 4:39 AM EST Marce Cole MD LAB BLOOD ORD ERABLES Performing Organization Address [facility] Co de Phone Number [address] [address] * (ABNORMAL) CBC (05/06/2019 4:33 AM EST) WBC 7.70 4.5 - 11.0 K/uL [facility] RBC 3.27(L) 4.00 - 5.20 M/uL [facility] HGB 10.1(L) 12.0 - 16.0 g/dL [facility] HCT 30.0(L) 36.0 - 46.0 % [facility] PLT 62(L) 150 - 400 K/uL [facility] MCV 91.7 80.0 - 100.0 fL [facility] MCH 30.9 26.0 - 34.0 pg [facility] MCHC 33.7 31.0 - 37.0 g/dL [facility] RDW 13.5 11.5 - 14.5 % [facility] MPV 10.3 8.4 - 12.0 fl [facility] NRBC 0.00 0 - 0.20 /100 WBCs [facility] ABSOLUTE NRBC 0.00 0 - 0.01 K/uL [facility] Blood 05/06/2019 4:33 AM EST 05/06/2019 4:40 AM EST Marce Cole MD LAB BLOOD ORD ERABLES Performing Organization Address City/[facility] Co de Phone Number [address] [address] * (ABNORMAL) Lactate (blood gas) (05/06/2019 4:33 AM EST) Lactate, blood 3.7(H) 0.5 - 2.0 mmol/L [facility] Blood 05/06/2019 4:33 AM EST 05/06/2019 4:40 AM EST Marce Cole MD LAB BLOOD ORD ERABLES Performing Organization Address [facility] de Phone Number [address] [address] * (ABNORMAL) Arterial blood gas PLUS (05/06/2019 4:33 AM EST) FIO2 UNSPEC. FIO2/L min [facility] PH 7.23(L) 7.35 - 7.45 [facility] PCO2 47(H) 35 - 42 mm[Hg] [facility] PO2 515(H) 80 - 100 mm[Hg] [facility] Base Excess, unspecified NEG 0.0 - 3.0 mmol/L [facility] Comment:7.9NEG HCO3, unspecified 19(L) 24 - 30 mmol/L [facility] SODIUM 136 135 - 145 mmol/L [facility] POTASSIUM 4.2 3.5 - 5.0 mmol/L [facility] IONIZED CALCIUM 0.98(L) 1.14 - 1.30 mmol/L [facility] Glucose, whole bld 202(H) 70 - 110 mg/dL [facility] HGB (BG) 10.8(L) 12.0 - 16.0 g/dl [facility] Comment:RESULT VERIFIED O2 Sat (SO2, arterial) 99.2(H) 94.0 - 99.0 % [facility] Blood 05/06/2019 4:33 AM EST 05/06/2019 4:40 AM EST Marce Cole MD LAB BLOOD ORD ERABLES Performing Organization Address City/[facility] Co de Phone Number [address] [address] * (ABNORMAL) Lactate (05/06/2019 3:14 AM EST) LACTIC ACID (MMOL/L) 2.8(H) 0.5 - 2.0 mmol/L [facility] Blood 05/06/2019 3:14 AM EST 05/06/2019 3:22 AM EST Marce Cole MD LAB BLOOD ORD ERAVIJI Performing Organization Address [facility] Co de Phone Number [address] [address] * (ABNORMAL) CBC (05/06/2019 3:14 AM EST) WBC 6.85 4.5 - 11.0 K/uL [facility] RBC 1.98(L) 4.00 - 5.20 M/uL [facility] HGB 6.2(L) 12.0 - 16.0 g/dL [facility] HCT 18.6(LL) 36.0 - 46.0 % [facility] PLT 119(L) 150 - 400 K/uL [facility] MCV 93.9 80.0 - 100.0 fL [facility] MCH 31.3 26.0 - 34.0 pg [facility] MCHC 33.3 31.0 - 37.0 g/dL [facility] RDW 12.7 11.5 - 14.5 % [facility] MPV 10.0 8.4 - 12.0 fl [facility] NRBC 0.00 0 - 0.20 /100 WBCs [facility] ABSOLUTE NRBC 0.00 0 - 0.01 K/uL [facility] Blood 05/06/2019 3:14 AM EST 05/06/2019 3:22 AM EST Marce Cole MD LAB BLOOD ORD ERAVIJI Performing Organization Address City/[facility] Co de Phone Number [address] [address] * (ABNORMAL) Lactate (05/06/2019 1:25 AM EST) LACTIC ACID (MMOL/L) 5.9(H) 0.5 - 2.0 mmol/L [facility] Blood 05/06/2019 1:25 AM EST 05/06/2019 1:47 AM EST Marce Cole MD LAB BLOOD ORD ERABLES [address] [address] * CBC (05/06/2019 1:25 AM EST) WBC Refused 4.5 - 11.0 K/uL [facility] Comment:Clotted Specimen RBC Refused 4.00 - 5.20 M/uL [facility] Comment:Clotted Specimen HGB Refused 12.0 - 16.0 g/dL [facility] Comment:Clotted Specimen HCT Refused 36.0 - 46.0 % [facility] Comment:Clotted Specimen PLT Refused 150 - 400 K/uL [facility] Comment:Clotted Specimen MCV Refused 80.0 - 100.0 fL [facility] Comment:Clotted Specimen MCH Refused 26.0 - 34.0 pg [facility] Comment:Clotted Specimen MCHC Refused 31.0 - 37.0 g/dL [facility] Comment:Clotted Specimen RDW Refused 11.5 - 14.5 % [facility] Comment:Clotted Specimen MPV Refused 8.4 - 12.0 fl [facility] Comment:Clotted Specimen NRBC Refused 0 - 0.20 /100 WBCs [facility] Comment:Clotted Specimen ABSOLUTE NRBC Refused 0 - 0.01 K/uL [facility] Comment:Clotted Specimen Blood 05/06/2019 1:25 AM EST 05/06/2019 1:42 AM EST Marce Cole MD LAB BLOOD ORD ERABLES [address] [address] * MRSA nasal screen (05/06/2019 1:25 AM EST) Special Requests No Special Requests 05/06/2019 1:25 AM EST [facility] MRSA Nasal Culture NEGATIVE FOR MRSA 05/07/2019 10:13 AM EST [facility] Other (Nasal) 05/06/2019 1:2 5 AM EST 05/06/2019 3:13 AM EST Marce Cole MD MICROBIOLOGY - GENERAL ORDERABLES Performing Organization Address [facility] Co de Phone Number [address] [address] * Vancomycin resistant Enterococci (VRE) rectal screen (05/06/2019 1:25 AM EST) Special Requests No Special Requests 05/06/2019 1:25 AM EST [facility] VRE Rectal Culture NEGATIVE FOR VRE 05/07/2019 8:06 AM EST [facility] Other (Rectal) 05/06/2019 1: 25 AM EST 05/06/2019 3:13 AM EST Marce Cole MD MICROBIOLOGY - GENERAL ORDERABLES Performing Organization Address [facility] de Phone Number [address] [address] * Transfuse RBC (05/06/2019 12:24 AM EST) Sal Shaw MD, MBA NURSING TREATMENT OR DERABLES - BLOOD ADMIN Performing Organization Address [facility] Co de Phone Number [id number] * Transfuse RBC (05/06/2019 12:24 AM EST) Sal Shaw MD, MBA NURSING TREATMENT OR DERABLES - BLOOD ADMIN * Lactate (05/06/2019 12:15 AM EST) LACTIC ACID (MMOL/L) 1.5 0.5 - 2.0 mmol/L [facility] Blood 05/06/2019 12:1 5 AM EST 05/06/2019 12:21 AM EST Marce Cole MD LAB BLOOD ORD ERABLES Performing Organization Address [facility] Co de Phone Number [address] [address] * (ABNORMAL) VENOUS BLOOD GAS PLUS (05/06/2019 12:11 AM EST) FIO2 0.98 FIO2/L min [facility] PH 7.32 7.30 - 7.40 [facility] PCO2 43 38 - 50 mm[Hg] [facility] PO2 73(H) 35 - 50 mm[Hg] [facility] Base Excess, unspecified NEG 0.0 - 3.0 mmol/L [facility] Comment:4.2NEG HCO3, unspecified 22(L) 24 - 30 mmol/L [facility] SODIUM 137 135 - 145 mmol/L [facility] POTASSIUM 3.9 3.5 - 5.0 mmol/L [facility] IONIZED CALCIUM 1.20 1.14 - 1.30 mmol/L [facility] Glucose, whole bld 144(H) 70 - 110 mg/dL [facility] HGB (BG) 8.8(L) 12.0 - 16.0 g/dl [facility] Comment:RESULT VERIFIED SO2-VENOUS (SO2, venous) 94.2(H) 60.0 - 85.0 % [facility] Blood 05/06/2019 12:1 1 AM EST 05/06/2019 12:17 AM EST Marce Cole MD LAB BLOOD ORD ERABLES [address] [address] * (ABNORMAL) PT-INR (05/06/2019 12:11 AM EST) PT 18.1(H) 11.5 - 14.5 sec [facility] INR 1.5(H) 0.9 - 1.1 [facility] Blood 05/06/2019 12:1 1 AM EST 05/06/2019 12:17 AM EST Marce Cole MD LAB BLOOD ORD ERABLES [address] [address] * PTT (05/06/2019 12:11 AM EST) APTT 27.7 22.0 - 36.0 sec [facility] Comment: Due to new reagent, the standard PTT heparin therapeutic range has changed to 70-100 seconds (instead of 60-80 seconds). Check MAR for the target range that is ordered for your patient. Blood 05/06/2019 12:1 1 AM EST 05/06/2019 12:17 AM EST Marce Cole MD LAB BLOOD ORD ERABLES [address] [address] * (ABNORMAL) Magnesium (05/06/2019 12:01 AM EST) MAGNESIUM 2.5(H) 1.7 - 2.4 mg/dL [facility] 05/06/2019 12:0 1 AM EST 05/06/2019 12:19 AM EST Marce Cole MD LAB BLOOD ORD ERABLES Performing Organization Address City/[facility]/ZIP Co de Phone Number [address] [address] * (ABNORMAL) Basic metabolic panel (05/06/2019 12:01 AM EST) SODIUM 142 135 - 145 mmol/L [facility] POTASSIUM 4.2 3.4 - 5.0 mmol/L [facility] CHLORIDE 108 98 - 108 mmol/L [facility] CO2 21(L) 23 - 32 mmol/L [facility] BUN 10 8 - 25 mg/dL [facility] CREATININE 0.68 0.60 - 1.50 mg/dL [facility] GLUCOSE 157(H) 70 - 110 mg/dL [facility] CALCIUM 8.8 8.5 - 10.5 mg/dL [facility] EGFR 119 >59 mL/min/1. 73m2 [facility] Comment:If patient is black, multiply result by 1.159. Estimated glomerular filtration rate calculated using the CKD-EPI equation. ANION GAP 13 3 - 17 mmol/L [facility] 05/06/2019 12:0 1 AM EST 05/06/2019 12:19 AM EST Marce Cole MD LAB BLOOD ORD ERABLES [address] [address] * (ABNORMAL) CBC (05/06/2019 12:01 AM EST) WBC 6.61 4.5 - 11.0 K/uL [facility] RBC 2.70(L) 4.00 - 5.20 M/uL [facility] HGB 8.6(L) 12.0 - 16.0 g/dL [facility] HCT 25.4(L) 36.0 - 46.0 % [facility] PLT 149(L) 150 - 400 K/uL [facility] MCV 94.1 80.0 - 100.0 fL [facility] MCH 31.9 26.0 - 34.0 pg [facility] MCHC 33.9 31.0 - 37.0 g/dL [facility] RDW 12.5 11.5 - 14.5 % [facility] MPV 9.8 8.4 - 12.0 fl [facility] NRBC 0.00 0 - 0.20 /100 WBCs [facility] ABSOLUTE NRBC 0.00 0 - 0.01 K/uL [facility] 05/06/2019 12:0 1 AM EST 05/06/2019 12:18 AM EST Marce Cole MD LAB BLOOD ORD ERABLES [facility] [address] [place] [address] * Transfuse RBC (05/05/2019 10:20 PM EST) Sal Shaw MD, MBA NURSING TREATMENT OR DERABLES - BLOOD ADMIN ACUITYPLUS * Transfuse RBC (05/05/2019 10:20 PM EST) Sal Shaw MD, MBA NURSING TREATMENT OR DERABLES - BLOOD ADMIN * Prepare RBC (05/05/2019 9:51 PM EST) Product Code [id number] 05/07/2019 4:35 AM EST [facility] Unit Number [id number] 05/07/19 20 4:35 AM EST [facility] Crossmatch Interpretation Compatible 05/05/2019 10:13 PM EST [facility] Product Status Issued, Final 020 4:35 AM EST [facility] ABO/Rh of Unit APOS 05/07/2019 4:35 AM EST [facility] Expiration Date/Time [id number] 05/07/2019 4:35 AM EST [facility] Unit Barcode 6200 05/07/2019 4:35 AM EST [facility] 05/05/2019 9:51 PM EST 05/05/2019 10:06 AM EST Marce Cole MD BLOOD BANK AK ODUCT ORDERABLES [address] [address] * (ABNORMAL) Magnesium (05/05/2019 8:30 PM EST) MAGNESIUM 1.5(L) 1.7 - 2.4 mg/dL [facility] Blood 05/05/2019 8:30 PM EST 05/05/2019 8:34 PM EST Marylou Markham CNP LAB BLOOD ORDERABLES Performing Organization Address [facility] Co de Phone Number [address] [address] * (ABNORMAL) Basic metabolic panel (05/05/2019 8:30 PM EST) SODIUM 144 135 - 145 mmol/L [facility] POTASSIUM 4.4 3.4 - 5.0 mmol/L [facility] CHLORIDE 106 98 - 108 mmol/L [facility] CO2 22(L) 23 - 32 mmol/L [facility] BUN 8 8 - 25 mg/dL [facility] CREATININE 0.63 0.60 - 1.50 mg/dL [facility] GLUCOSE 123(H) 70 - 110 mg/dL [facility] CALCIUM 8.2(L) 8.5 - 10.5 mg/dL [facility] EGFR >120 >59 mL/min/1. 73m2 [facility] Comment:If patient is black, multiply result by 1.159. Estimated glomerular filtration rate calculated using the CKD-EPI equation. ANION GAP 16 3 - 17 mmol/L [facility] Blood 05/05/2019 8:30 PM EST 05/05/2019 8:34 PM EST Marylou Markham CNP LAB BLOOD ORDERABLES Performing Organization Address City/[facility]/ZIP Co de Phone Number [address] [address] * (ABNORMAL) VENOUS BLOOD GAS PLUS (05/05/2019 8:30 PM EST) Pathologist [facility] FIO2 UNSPEC. FIO2/L min [facility] PH 7.41(H) 7.30 - 7.40 [facility] PCO2 37(L) 38 - 50 mm[Hg] [facility] PO2 58(H) 35 - 50 mm[Hg] [facility] Base Excess, unspecified NEG 0.0 - 3.0 mmol/L [facility] Comment:1.2NEG HCO3, unspecified 23(L) 24 - 30 mmol/L [facility] SODIUM 137 135 - 145 mmol/L [facility] POTASSIUM 4.1 3.5 - 5.0 mmol/L [facility] IONIZED CALCIUM 1.03(L) 1.14 - 1.30 mmol/L [facility] Glucose, whole bld 118(H) 70 - 110 mg/dL [facility] HGB (BG) 6.0(LL) 12.0 - 16.0 g/dl [facility] Comment:RESULT VERIFIED SO2-VENOUS (SO2, venous) 91.8(H) 60.0 - 85.0 % [facility] Blood 05/05/2019 8:30 PM EST 05/05/2019 8:33 PM EST Sal Shaw MD, BERNARD LAB BLOOD ORDERABLES [address] [address] * (ABNORMAL) CBC (05/05/2019 8:30 PM EST) Pathologist [facility] WBC 7.15 4.5 - 11.0 K/uL [facility] RBC 1.90(L) 4.00 - 5.20 M/uL [facility] HGB 6.0(L) 12.0 - 16.0 g/dL [facility] HCT 17.6(LL) 36.0 - 46.0 % [facility] PLT 183 150 - 400 K/uL [facility] MCV 92.6 80.0 - 100.0 fL [facility] MCH 31.6 26.0 - 34.0 pg [facility] MCHC 34.1 31.0 - 37.0 g/dL [facility] RDW 12.3 11.5 - 14.5 % [facility] MPV 9.5 8.4 - 12.0 fl [facility] NRBC 0.00 0 - 0.20 /100 WBCs [facility] ABSOLUTE NRBC 0.00 0 - 0.01 K/uL [facility] Blood 05/05/2019 8:30 PM EST 05/05/2019 8:34 PM EST Sal Shaw MD, MBA LAB BLOOD ORDERABLES Performing Organization Address [facility]/ZIP Co de Phone Number [address] [address] * (ABNORMAL) Magnesium (05/05/2019 7:57 PM EST) MAGNESIUM 1.3(L) 1.7 - 2.4 mg/dL [facility] Blood 05/05/2019 7:57 PM EST 05/05/2019 8:05 PM EST Marce Cole MD LAB BLOOD ORD ERABLES Performing Organization Address [facility] Co de Phone Number [address] [address] * (ABNORMAL) CBC (05/05/2019 7:57 PM EST) WBC 5.84 4.5 - 11.0 K/uL [facility] RBC 1.72(L) 4.00 - 5.20 M/uL [facility] HGB 5.4(L) 12.0 - 16.0 g/dL [facility] HCT 15.9(LL) 36.0 - 46.0 % [facility] PLT 130(L) 150 - 400 K/uL [facility] MCV 92.4 80.0 - 100.0 fL [facility] MCH 31.4 26.0 - 34.0 pg [facility] MCHC 34.0 31.0 - 37.0 g/dL [facility] RDW 12.6 11.5 - 14.5 % [facility] MPV 11.0 8.4 - 12.0 fl [facility] NRBC 0.00 0 - 0.20 /100 WBCs [facility] ABSOLUTE NRBC 0.00 0 - 0.01 K/uL [facility] Blood 05/05/2019 7:57 PM EST 05/05/2019 8:04 PM EST Marce Cole MD LAB BLOOD ORD ERABLES Performing Organization Address City/[facility] Co de Phone Number [address] [address] * (ABNORMAL) Basic metabolic panel (05/05/2019 7:57 PM EST) SODIUM 142 135 - 145 mmol/L [facility] POTASSIUM 4.9 3.4 - 5.0 mmol/L [facility] Comment:Hemolysis present, r esult falsely increased. CHLORIDE 107 98 - 108 mmol/L [facility] CO2 21(L) 23 - 32 mmol/L [facility] BUN 8 8 - 25 mg/dL [facility] CREATININE 0.63 0.60 - 1.50 mg/dL [facility] GLUCOSE 105 70 - 110 mg/dL [facility] CALCIUM 7.5(L) 8.5 - 10.5 mg/dL [facility] EGFR >120 >59 mL/min/1. 73m2 [facility] Comment:If patient is black, multiply result by 1.159. Estimated glomerular filtration rate calculated using the CKD-EPI equation. ANION GAP 14 3 - 17 mmol/L [facility] Blood 05/05/2019 7:57 PM EST 05/05/2019 8:05 PM EST Marce Cole MD LAB BLOOD ORD ERABLES Performing Organization Address [facility] Co de Phone Number [address] [address] * (ABNORMAL) Lactate (05/05/2019 5:46 PM EST) LACTIC ACID (MMOL/L) 2.3(H) 0.5 - 2.0 mmol/L [facility] Blood 05/05/2019 5:46 PM EST 05/05/2019 5:55 PM EST Marylou Markham CNP LAB BLOOD ORDERABLES Performing Organization Address City/[facility]/ZIP Co de Phone Number [address] [address] * PTT (05/05/2019 5:46 PM EST) Pathologist [facility] APTT 22.9 22.0 - 36.0 sec [facility] Comment: Due to new reagent, the standard PTT heparin therapeutic range has changed to 70-100 seconds (instead of 60-80 seconds). Check MAR for the target range that is ordered for your patient. Blood 05/05/2019 5:46 PM EST 05/05/2019 5:55 PM EST Marylou Markham [employer] LAB BLOOD ORDERABLES Performing Organization Address City/[facility]/ZIP Co de Phone Number [address] [address] * (ABNORMAL) PT-INR (05/05/2019 5:46 PM EST) Pathologist [facility] PT 16.3(H) 11.5 - 14.5 sec [facility] INR 1.3(H) 0.9 - 1.1 [facility] Blood 05/05/2019 5:46 PM EST 05/05/2019 5:55 PM EST Marylou Markham [facility] LAB BLOOD ORDERABLES Performing Organization Address City/[facility] Co de Phone Number [address] [address] * (ABNORMAL) CBC (05/05/2019 5:46 PM EST) Pathologist [facility] WBC 7.25 4.5 - 11.0 K/uL [facility] RBC 2.54(L) 4.00 - 5.20 M/uL [facility] HGB 8.0(L) 12.0 - 16.0 g/dL [facility] HCT 24.3(L) 36.0 - 46.0 % [facility] PLT 200 150 - 400 K/uL [facility] MCV 95.7 80.0 - 100.0 fL [facility] MCH 31.5 26.0 - 34.0 pg [facility] MCHC 32.9 31.0 - 37.0 g/dL [facility] RDW 12.2 11.5 - 14.5 % [facility] MPV 9.8 8.4 - 12.0 fl [facility] NRBC 0.00 0 - 0.20 /100 WBCs [facility] ABSOLUTE NRBC 0.00 0 - 0.01 K/uL [facility] Blood 05/05/2019 5:46 PM EST 05/05/2019 5:54 PM EST Marylou Markham CNP LAB BLOOD ORDERABLES Performing Organization Address [facility] Co de Phone Number [address] [address] * (ABNORMAL) Magnesium (05/05/2019 5:46 PM EST) MAGNESIUM 1.5(L) 1.7 - 2.4 mg/dL [facility] Blood 05/05/2019 5:46 PM EST 05/05/2019 5:54 PM EST Marylou Markham CNP LAB BLOOD ORDERABLES Performing Organization Address [facility] de Phone Number [address] [address] * (ABNORMAL) Basic metabolic panel (05/05/2019 5:46 PM EST) SODIUM 144 135 - 145 mmol/L [facility] POTASSIUM 4.0 3.4 - 5.0 mmol/L [facility] CHLORIDE 107 98 - 108 mmol/L [facility] CO2 23 23 - 32 mmol/L [facility] BUN 8 8 - 25 mg/dL [facility] CREATININE 0.72 0.60 - 1.50 mg/dL [facility] GLUCOSE 182(H) 70 - 110 mg/dL [facility] CALCIUM 8.1(L) 8.5 - 10.5 mg/dL [facility] EGFR 114 >59 mL/min/1. 73m2 [facility] Comment:If patient is black, multiply result by 1.159. Estimated glomerular filtration rate calculated using the CKD-EPI equation. ANION GAP 14 3 - 17 mmol/L [facility] Blood 05/05/2019 5:46 PM EST 05/05/2019 5:54 PM EST Marylou Markham CNP LAB BLOOD ORDERABLES Performing Organization Address [facility] Co de Phone Number [address] [address] * PTT (05/05/2019 3:51 PM EST) APTT 28.9 22.0 - 36.0 sec [facility] Comment: Due to new reagent, the standard PTT heparin therapeutic range has changed to 70-100 seconds (instead of 60-80 seconds). Check MAR for the target range that is ordered for your patient. Blood 05/05/2019 3:51 PM EST 05/05/2019 4:31 PM EST Marce Cole MD LAB BLOOD ORD ERABLES Performing Organization Address City/[facility] Co de Phone Number [address] [address] * (ABNORMAL) PT-INR (05/05/2019 3:51 PM EST) Pathologist [facility] PT 18.5(H) 11.5 - 14.5 sec [facility] INR 1.5(H) 0.9 - 1.1 [facility] Blood 05/05/2019 3:51 PM EST 05/05/2019 4:31 PM EST Marce Cole MD LAB BLOOD ORD ERABLES Performing Organization Address [facility] Co de Phone Number [address] [address] * (ABNORMAL) Magnesium (05/05/2019 3:51 PM EST) Pathologist [facility] MAGNESIUM 1.0(LL) 1.7 - 2.4 mg/dL [facility] Blood 05/05/2019 3:51 PM EST 05/05/2019 4:32 PM EST Marce Cole MD LAB BLOOD ORD ERABLES Performing Organization Address [facility] Co de Phone Number [address] [address] * (ABNORMAL) Basic metabolic panel (05/05/2019 3:51 PM EST) SODIUM 145 135 - 145 mmol/L [facility] POTASSIUM 3.4 3.4 - 5.0 mmol/L [facility] CHLORIDE 113(H) 98 - 108 mmol/L [facility] CO2 17(L) 23 - 32 mmol/L [facility] BUN 6(L) 8 - 25 mg/dL [facility] CREATININE 0.43(L) 0.60 - 1.50 mg/dL [facility] GLUCOSE 119(H) 70 - 110 mg/dL [facility] CALCIUM 6.4(LL) 8.5 - 10.5 mg/dL [facility] EGFR >120 >59 mL/min/1. 73m2 [facility] Comment:If patient is black, multiply result by 1.159. Estimated glomerular filtration rate calculated using the CKD-EPI equation. ANION GAP 15 3 - 17 mmol/L [facility] Blood 05/05/2019 3:51 PM EST 05/05/2019 4:32 PM EST [place] Trey Cole MD LAB BLOOD ORD ERABLES [facility] [address] [place] [address] * (ABNORMAL) CBC and differential (05/05/2019 3:51 PM EST) WBC 5.46 4.5 - 11.0 K/uL [facility] RBC 2.30(L) 4.00 - 5.20 M/uL [facility] HGB 7.2(L) 12.0 - 16.0 g/dL [facility] HCT 21.7(L) 36.0 - 46.0 % [facility] PLT 139(L) 150 - 400 K/uL [facility] MCV 94.3 80.0 - 100.0 fL [facility] MCH 31.3 26.0 - 34.0 pg [facility] MCHC 33.2 31.0 - 37.0 g/dL [facility] RDW 12.4 11.5 - 14.5 % [facility] MPV 9.1 8.4 - 12.0 fl [facility] NRBC 0.00 0 - 0.20 /100 WBCs [facility] ABSOLUTE NRBC 0.00 0 - 0.01 K/uL [facility] DIFF METHOD Auto [facility] NEUTS 80.7(H) 40 - 70 % [facility] LYMPHS 10.3(L) 22 - 44 % [facility] MONOS 8.6 4 - 11 % [facility] EOS 0.0 0 - 8 % [facility] BASOS 0.0 0 - 3 % [facility] % IMMATURE GRANS 0.4 0.0 - 0.9 % [facility] ABSOLUTE NEUTS 4.41 1.8 - 7.7 K/uL [facility] ABSOLUTE LYMPHS 0.56(L) 1.0 - 4.8 K/uL [facility] ABSOLUTE MONOS 0.47 0.2 - 1.2 K/uL [facility] ABSOLUTE EOS 0.00 0.0 - 0.9 K/uL [facility] ABSOLUTE BASOS 0.00 0.0 - 0.3 K/uL [facility] ABS IMMATURE GRANS 0.02 0.00 - 0.10 K/uL [facility] Blood 05/05/2019 3:51 PM EST 05/05/2019 4:34 PM EST Marce Cole MD LAB BLOOD ORD ERABLES Performing Organization Address City/[facility] Co de Phone Number [address] [address] * (ABNORMAL) Lactate (blood gas) (05/05/2019 3:12 PM EST) Lactate, blood 3.1(H) 0.5 - 2.0 mmol/L [facility] Blood 05/05/2019 3:12 PM EST 05/05/2019 3:23 PM EST Magen Garza MD LAB BLOOD ORDERABLES Performing Organization Address [facility] Co de Phone Number [address] [address] * (ABNORMAL) VENOUS BLOOD GAS PLUS (05/05/2019 3:12 PM EST) FIO2 UNSPEC. FIO2/L min [facility] PH 7.27(L) 7.30 - 7.40 [facility] PCO2 48 38 - 50 mm[Hg] [facility] PO2 45 35 - 50 mm[Hg] [facility] Base Excess, unspecified NEG 0.0 - 3.0 mmol/L [facility] Comment:5.3NEG HCO3, unspecified 21(L) 24 - 30 mmol/L [facility] SODIUM 140 135 - 145 mmol/L [facility] POTASSIUM 3.1(L) 3.5 - 5.0 mmol/L [facility] IONIZED CALCIUM 0.99(L) 1.14 - 1.30 mmol/L [facility] Glucose, whole bld 132(H) 70 - 110 mg/dL [facility] HGB (BG) 8.7(L) 12.0 - 16.0 g/dl [facility] SO2-VENOUS (SO2, venous) 70.8 60.0 - 85.0 % [facility] Blood 05/05/2019 3:12 PM EST 05/05/2019 3:23 PM EST Magen Garza MD LAB BLOOD ORDERABLES Performing Organization Address City/[facility]/[place] [address] * (ABNORMAL) Lactate (blood gas) (05/05/2019 2:09 PM EST) Lactate, blood 6.1(H) 0.5 - 2.0 mmol/L [facility] Comment:RESULT VERIFIED 05/05/2019 2:09 PM EST 05/05/2019 2:37 PM EST Vane Mejia CRNA LAB BLOOD OR DERABLES Performing Organization Address [facility] [place] [address] * (ABNORMAL) VENOUS BLOOD GAS PLUS (05/05/2019 2:09 PM EST) FIO2 UNSPEC. FIO2/L min [facility] PH 7.27(L) 7.30 - 7.40 [facility] PCO2 36(L) 38 - 50 mm[Hg] [facility] PO2 39 35 - 50 mm[Hg] [facility] Base Excess, unspecified NEG 0.0 - 3.0 mmol/L [facility] Comment:9.8NEG HCO3, unspecified 16(L) 24 - 30 mmol/L [facility] SODIUM 137 135 - 145 mmol/L [facility] POTASSIUM 3.8 3.5 - 5.0 mmol/L [facility] IONIZED CALCIUM 0.93(L) 1.14 - 1.30 mmol/L [facility] Glucose, whole bld 94 70 - 110 mg/dL [facility] HGB (BG) 9.4(L) 12.0 - 16.0 g/dl [facility] SO2-VENOUS (SO2, venous) 61.2 60.0 - 85.0 % [facility] Blood 05/05/2019 2:09 PM EST 05/05/2019 2:37 PM EST Magen Garza MD LAB BLOOD ORDERABLES Performing Organization Address [facility] Co de Phone Number [address] [address] * (ABNORMAL) Basic metabolic panel (05/05/2019 10:05 AM EST) SODIUM 142 135 - 145 mmol/L [facility] POTASSIUM 4.3 3.4 - 5.0 mmol/L [facility] Comment:Hemolysis present, r esult falsely increased. CHLORIDE 103 98 - 108 mmol/L [facility] CO2 21(L) 23 - 32 mmol/L [facility] BUN 7(L) 8 - 25 mg/dL [facility] CREATININE 0.72 0.60 - 1.50 mg/dL [facility] GLUCOSE 95 70 - 110 mg/dL [facility] CALCIUM 9.5 8.5 - 10.5 mg/dL [facility] EGFR 114 >59 mL/min/1.7 2 [facility] Comment:If patient is black, multiply result by 1.159. Estimated glomerular filtration rate calculated using the CKD-EPI equation. ANION GAP 18(H) 3 - 17 mmol/L [facility] Blood 05/05/2019 10:0 5 AM EST 05/05/2019 10:15 AM EST Marce Cole MD LAB BLOOD ORD ERABLES Performing Organization Address [facility] Co de Phone Number [address] [address] * PTT (05/05/2019 10:05 AM EST) APTT 26.6 22.0 - 36.0 sec [facility] Comment: Due to new reagent, the standard PTT heparin therapeutic range has changed to 70-100 seconds (instead of 60-80 seconds). Check MAR for the target range that is ordered for your patient. Blood 05/05/2019 10:0 5 AM EST 05/05/2019 10:15 AM EST Marce Cole MD LAB BLOOD ORD ERABLES Performing Organization Address City/[facility]/ZIP Co de Phone Number [address] [address] * PT-INR (05/05/2019 10:05 AM EST) PT 13.3 11.5 - 14.5 sec [facility] INR 1.0 0.9 - 1.1 [facility] Blood 05/05/2019 10:0 5 AM EST 05/05/2019 10:15 AM EST Marce Cole MD LAB BLOOD ORD ERABLES Performing Organization Address City/[facility] Co de Phone Number [address] [address] * CBC (05/05/2019 10:05 AM EST) WBC 8.83 4.5 - 11.0 K/uL [facility] RBC 4.13 4.00 - 5.20 M/uL [facility] HGB 12.8 12.0 - 16.0 g/dL [facility] HCT 37.5 36.0 - 46.0 % [facility] PLT 246 150 - 400 K/uL [facility] MCV 90.8 80.0 - 100.0 fL [facility] MCH 31.0 26.0 - 34.0 pg [facility] MCHC 34.1 31.0 - 37.0 g/dL [facility] RDW 12.2 11.5 - 14.5 % [facility] MPV 9.9 8.4 - 12.0 fl [facility] NRBC 0.00 0 - 0.20 /100 WBCs [facility] ABSOLUTE NRBC 0.00 0 - 0.01 K/uL [facility] Blood 05/05/2019 10:0 5 AM EST 05/05/2019 10:16 AM EST Marce Cole MD LAB BLOOD ORD ERABLES Performing Organization Address City/[facility]/ZIP Co de Phone Number [address] [address] * Type and Screen (ABO,Rh,Antibody Screen) (05/05/2019 8:52 AM EST) Expiration Date of Sample 05/08/2019 11:59 PM ABO A 05/05/2019 10:35 AM EST [facility] Rh Positive 05/05/2019 10:35 AM EST [facility] Resulting Agency [facility] Antibody Screen Negative 05/05/2019 10:54 AM EST [facility] Blood 05/05/2019 8:52 AM EST 05/05/2019 10:06 AM EST Marce Cole MD BLOOD BANK TE ST ORDERABLES Performing Organization Address [facility] Co de Phone Number [address] [address] * HCG, urine (05/05/2019 8:02 AM EST) URINE TEST Negative Negative [facility] Urine (Urine) 05/05/2019 8:0 2 AM EST 05/05/2019 8:27 AM EST Marce Cole MD URINE ORDERAB LES Performing Organization Address [facility] Co de Phone Number [address] [address] * Anatomic Pathology (05/05/2019 12:00 AM EST) 05/05/2019 05/05/2019 4:0 2 PM EST Narrative SEE NARRATIVE - 05/12/2019 10:57 AM EST [address] [address] ? Surgical Pathology Report Patient Name: MARYLOU SHAFER : 1990 (Age: 28) Sex: F Location: PERIOP Institution: [facility] [place] Date of Operation: 05/05/2019 Date of Reported: [...] consistent with a reactive lymphoid infiltrate. A employee's representative slide of endomyometrium was reviewed by Dr. Suraj Acuña. D. LEFT PARAMETRIUM: ?? Fibroadipose tissue and two lymph nodes. There is no evidence of malignancy. Electronically Signed Out By Jayda Kurtz MD Resident Pathologist: Erlin Curry MD, PHD By his/her signature above, the pathologist listed as making the Final Diagnosis certifies that he/she has personally reviewed the case and confirmed the diagnosis. All slides and stains were of sufficient quality to establish the diagnosis, unless otherwise stated. CLINICAL HISTORY Malignant neoplasm of endocervix SPECIMENS SUBMITTED: A: LYMPH NODE DISSECTION, LEFT PELVIC B: LYMPH NODE DISSECTION, RIGHT PELVIC C: UTERUS AND FALLOPIAN TUBES, HYSTERECTOMY AND BILATERAL SALPINGECTOMY AND UPPER VAGINA PARAMETRIUM D: LEFT PARAMETRIUM GROSS DESCRIPTION Received fresh are 4 containers labeled Marylou Shafer and . A. LYMPH NODE DISSECTION, LEFT PELVIC: ?? Received fresh labeled left pelvic lymph nodes is a 4.1 x 2.8 x 1.6 cm fat tissue. ??The specimen is sectioned and palpated to reveal 2 candidate lymph nodes. ??Candidate lymph nodes are submitted intact separately in A1 and A2. ??The remaining specimen is entirely submitted in A3-A5. B. LYMPH NODE DISSECTION, RIGHT PELVIC: ?? Received fresh labeled right pelvic lymph nodes is a 5.0 X 2.9 x 1.2 cm fat tissue. ??The specimen is sectioned and palpated to reveal 3 candidate lymph nodes. ??Candidate lymph nodes are submitted intact separately in B1-B3. ??The remaining specimen is submitted entirely in B4-B5. C. UTERUS AND FALLOPIAN TUBES, HYSTERECTOMY AND BILATERAL SALPINGECTOMY AND UPPER VAGINA PARAMETRIUM: ?? Received fresh labeled uterus and fallopian tubes, hysterectomy and bilateral salpingectomy and upper vaginal parametrium is a 66 g 8.2 x 4.6 x 2.5 cm uterus with attached paracervical tissue and fimbriated fallopian tubes (right-7.1 x 0.6 x 0.4 cm, left-8.6 x 0.6 x 0.4 cm. ??The ectocervical mucosa is rodrigues-pink, glistening, smooth and the patent, slitlike cervical os measures 0.9 cm in diameter. ??The anterior paracervical margin is inked blue posterior paracervical margin is inked black. ??The 1.9 cm in length endocervical canal is lined by rodrigues-caicedo mucosa and is remarkable for a 0.4 x 0.4 cm ulcerative defect on the posterior side right above the ectocervical mucosa. ??The 4.1 x 2.4 cm triangular cavity is lined by rodrigues-pink, unremarkable endometrium with a maximum thickness of 0.1 cm. ??The myometrium is rodrigues-pink, trabeculated and has a maximum thickness of 1.5 cm. ??The serosa is rodrigues-pink, smooth and unremarkable. ??No nodules are identified in the attached paracervical tissue. ??The fallopian tubes are surfaced by rodrigues-caicedo, glistening serosa and sectioned to reveal stellate lumen. Gross photographs are taken. ??Pm Head Cook sections are submitted as follows: C1: Right paracervical tissue margin, employee's representative C2: Left paracervical tissue margin, employee's representative C3-C5: Cervix, 3:00 to 6:00 to include the surface defect in C4 C6-C9: Cervix, 6:00 to 9:00 C10-C 12: Cervix, 9:00 to 12:00 C13-C 15: Cervix, 12:00 to 3:00 C16: Anterior lower uterine segment, employee's representative C17: Posterior lower uterine segment, employee's representative C18-C19: Anterior endomyometrium, full-thickness in each block C20-C 21: Posterior endomyometrium, full-thickness in each block C22: Right fallopian tube, fimbriated end and distal one third C23: Left fallopian tube, fimbriated end and distal one third D. LEFT PARAMETRIUM: ?? Received fresh labeled left parametrium is a 2.5 x 2.2 x 0.6 cm unoriented rodrigues-brown soft tissue with an undesignated stitch. ??The specimen is sectioned and submitted entirely in D1-D4. Grossed by: Erlin Curry MD, PHD Immunohistochemical and in-situ hybridization tests performed at [facility] have been developed and their performance characteristics determined by the [facility] Laboratories in the Department of Pathology at [facility]. They have not been cleared or approved by the U.S.Food and Drug Administration (FDA); the FDA has determined that such clearance or approval is not necessary. [facility] ORD ERABLES SEE NARRATIVE documented in this encounter Visit Diagnoses Diagnosis Post-operative state- Primary Other postprocedural status documented in this encounter Administered Medications Inactive Administered Medications - up to 3 most recent administrations Medication Order MAR Action Action Date Dose Rate Site acetaminophen (TYLENOL) tablet 975 mg 975 mg, Oral, Once, On Consuelo 05/05/19 at 0900, For 1 dose, Pre-op (day of) Given 05/05/2019 8:27 AM EST 975 mg acetaminophen (TYLENOL) tablet 975 mg 975 mg, Oral, Every 6 hours, First dose on Consuelo 05/05/19 at 1645 Given 05/10/2019 10:04 AM EST 975 mg Given 05/10/2019 2:25 AM EST 975 mg Given 05/09/2019 8:58 PM EST 975 mg albumin human 5% bottle 250 mL 250 mL, Intravenous, Once, On Consuelo 05/05/19 at 1915, For 1 dose, Recovery Room (only) Given 05/05/2019 6:23 PM EST 25 0 mL albumin human 5% bottle 500 mL 500 mL, Intravenous, Once, On Consuelo 05/05/19 at 1945, For 1 dose Given 05/05/2019 6:56 PM EST 500 mL bisacodyl (DULCOLAX) suppository 10 mg 10 mg, Rectal, Daily as needed, moderate constipation, Starting on Thu05/06/19 at 0933 buPROPion (WELLBUTRIN SR) SR 12 hr tablet 150 mg 150 mg, Oral, Daily, First dose on Thu05/06/19 at 0900, DO NOT cut, crush, or chew tablets due to increased risk of seizures. Given 05/09/2019 9:15 AM EST 150 mg calcium gluconate 2 gram/100 mL in NS IVPB 2 g, Intravenous, Once, On Consuelo 05/05/19 at 2245, For 1 dose New Bag 05/05/2019 10:28 PM EST 2 g ceFAZolin (ANCEF) 2 gram/100 mL in dextrose IVPB 2 g, Intravenous, Once, On Thu05/06/19 at 0745, For 1 dose, Indication: Prophylaxis, at risk for:, Infection Source: Surgical Prophylaxis New Bag 05/06/2019 9:36 AM EST 2 g celecoxib (CeleBREX) capsule 400 mg 400 mg, Oral, Once, On Consuelo 05/05/19 at 0900, For 1 dose, Pre-op (day of), Contraindicated if patient has chronic renal failure or SCr greater than 1.5 mg/dL, NSAID allergy or Sulfa allergy. Given 05/05/2019 8:27 AM EST 400 m g diphenhydrAMINE (BENADRYL) capsule 25 mg 25 mg, Oral, Every 6 hours PRN, itching, Starting on Thu05/10/19 at 1015 Given 05/10/2019 11:43 AM EST 25 mg enoxaparin (LOVENOX) subcutaneous syringe 40 mg 40 mg, Subcutaneous, Daily, First dose on Thu05/09/19 at 1515, Administer subcutaneously. Rotate injection sites. Given 05/10/2019 10:06 AM EST 40 mg Given 05/09/2019 3:02 PM EST 40 mg famotidine (PF) (PEPCID) injection 20 mg 20 mg, Intravenous, Once as needed, other (free text field), 2nd line antiemetic, Starting on Consuelo 05/05/19 at 1547, For 1 dose, Recovery Room (only), May be given undiluted IV push over 2 minutes. Given 05/05/2019 10:59 PM EST 20 mg furosemide (LASIX) injection 10 mg 10 mg, Intravenous, Once, On Thu05/07/19 at 0900, For 1 dose Given 05/07/2019 9:20 AM EST 10 mg gabapentin (NEURONTIN) capsule 100 mg 100 mg, Oral, 3 times daily, First dose on Consuelo 05/05/19 at 1645, For escalation call HO. Given 05/07/2019 8:10 PM EST 100 mg Given 05/07/2019 9:19 AM EST 100 mg gabapentin (NEURONTIN) capsule 600 mg 600 mg, Oral, Once, On Consuelo 05/05/19 at 0900, For 1 dose, Pre-op (day of) Given 05/05/2019 8:27 AM EST 600 mg haloperidol lactate (HALDOL) 5 mg/mL injection Starting on Thu05/06/19 at 0255, For 1 dose, Omero Siddiqui James: cabinet override haloperidol lactate (HALDOL) injection 1 mg 1 mg, Intravenous, Once as needed, other (free text field), 3rd line antiemetic, Starting on Consuelo 05/05/19 at 1547, For 1 dose, Recovery Room (only) Given 05/05/2019 5:11 PM EST 1 mg haloperidol lactate (HALDOL) injection 1 mg 1 mg, Intravenous, Once, On Consuelo 05/05/19 at 2130, For 1 dose Given 05/05/2019 8:48 PM EST 1 mg haloperidol lactate (HALDOL) injection 1 mg 1 mg, Intravenous, Every 4 hours PRN, other (free text field), nausea, Starting on Thu05/06/19 at 0333 Given 05/06/2019 3:00 AM EST 1 mg heparin 5,000 unit/mL injection 5,000 Units 5,000 Units, Subcutaneous, Once, On Consuelo 05/05/19 at 1100, For 1 dose, Pre-op (day of) Given 05/05/2019 10:03 AM EST 5,000 Units Right Arm hydrALAZINE 20 mg/mL injection Starting on Thu05/06/19 at 0731, For 1 dose, Bouchra Reece: cabinet override hydrALAZINE injection 5 mg 5 mg, Intravenous, Once, On Thu05/06/19 at 0830, For 1 dose Given 05/06/2019 7:35 AM EST 5 mg hydrocortisone 2.5 % cream Topical, 2 times daily, First dose on Thu05/10/19 at 0900, Apply to rash as needed For TOPICAL Use Only Given 05/10/2019 8:33 AM EST 1 application. HYDROmorphone (PF) (DILAUDID) 0.5 mg/0.5 mL injection syringe Starting on Thu05/06/19 at 0645, For 1 dose, Gabby George: cabinet override HYDROmorphone (PF) (DILAUDID) injection syringe 0.5 mg 0.5 mg, Intravenous, Once, On Thu05/06/19 at 0745, For 1 dose Given 05/06/2019 6:52 AM EST 0.5 mg HYDROmorphone (PF) 10 mcg/mL bupivacaine 1 mg/mL (0.1%) in NS (100 mL) PCEA (Premix CMPD) Epidural, Continuous, Starting on Consuelo 05/05/19 at 1645, Recovery & Post-op, Epidural for PCEA? Yes, Continuous Rate: 6 mL/hr, PCEA patient bolus dose: 2 mL, Lockout Interval: 20 min, One hour dose limit: [calculation = continuous rate + 3x demand dose]: 12 mL Same Bag 05/05/2019 4:05 PM EST HYDROmorphone (PF) 10 mcg/mL bupivacaine 1 mg/mL [...] 9:06 AM EST 6 mL/hr 6 mL/hr ibuprofen (ADVIL,MOTRIN) tablet 600 mg 600 mg, Oral, Every 6 hours PRN, mild pain or 1-3 (on a general 0-10 scale), Starting on Thu05/09/19 at 1429 Given 05/10/2019 2:25 PM EST 600 mg Given 05/10/2019 6:01 AM EST 600 mg Given 05/09/2019 9:52 PM EST 600 mg ketorolac (TORADOL) injection 30 mg 30 mg, Intravenous, Every 6 hours, First dose on Consuelo 05/05/19 at 1645, For 48 hours Given 05/05/2019 11:51 PM EST 30 mg Given 05/05/2019 5:58 PM EST 30 mg lactated Ringers infusion 75 mL/hr, Intravenous, Continuous, Starting on Consuelo 05/05/19 at 1645, For 6 hours, Recovery & Post-op Rate/Dose Verify 05/05/2019 10:05 PM EST 75 mL/hr 75 mL/hr New Bag 05/05/2019 4:05 PM EST 75 mL/hr 75 mL/hr lactated Ringers infusion 75 mL/hr, Intravenous, Continuous, Starting on Thu05/06/19 at 0215 Rate/Dose Verify 05/07/2019 12:59 PM EST 5 mL/hr 5 mL/hr Rate/Dose Verify 05/07/2019 11:59 AM EST 5 mL/hr 5 mL/h r Rate/Dose Verify 05/07/2019 10:59 AM EST 5 mL/hr 5 mL/h r lactated ringers IV Bolus 1,000 mL 1,000 mL, Intravenous, Once, On Thu05/06/19 at 0215, For 1 dose New Bag 05/06/2019 1:33 AM EST 1,000 mL lactated ringers IV Bolus 1,000 mL 1,000 mL, Intravenous, Once, On Thu05/06/19 at 0315, For 1 dose New Bag 05/06/2019 2:30 AM EST 1,000 mL magnesium oxide (MAG-OX) tablet 400 mg 400 mg, Oral, Daily, First dose on Thu05/09/19 at 0900, Dose is expressed in magnesium oxide salt. Magnesium oxide salt 1.67 mg = elemental magnesium 1 mg. Given 05/10/2019 8:38 AM EST 400 mg Given 05/09/2019 9:15 AM EST 400 mg magnesium sulfate 2 gram/50 mL (4%) in Sterile Water IVPB 2 g 2 g, Intravenous, Once, On Consuelo 05/05/19 at 2300, For 1 dose New Bag 05/05/2019 10:05 PM EST 2 g magnesium sulfate 2 gram/50 mL (4%) in Sterile Water IVPB 2-4 g 2-4 g, Intravenous, As needed, other (free text field), Mg Replacement Scale, Starting on Thu05/06/19 at 1655, Magnesium Replacement Scale (IV) <1.4 Give 4 g and call RC if <1 1.4-1.6 4 g 1.7-2 2 g >2 Do not replace Hold scale if creatinine greater than 2 mg/dL or rise of greater than 0.5 in 24 hrs, and contact RC. New Bag 05/07/2019 12:28 PM EST 2 g New Bag 05/07/2019 4:17 AM EST 2 g New Bag 05/06/2019 7:31 PM EST 2 g ondansetron (PF) (ZOFRAN) injection 2 mg 2 mg, Intravenous, Every 4 hours PRN, nausea, vomiting, Starting on Consuelo 05/05/19 at 1548, If unable to tolerate PO. Given 05/09/2019 7:53 AM EST 2 mg Given 05/09/2019 2:50 AM EST 2 mg Given 05/08/2019 9:25 PM EST 2 mg ondansetron (PF) (ZOFRAN) injection 2-4 mg 2-4 mg, Intravenous, Once as needed, other (free text field), 1st line antiemetic, Starting on Consuelo 05/05/19 at 1547, For 1 dose, Recovery Room (only) Given 05/05/2019 4:57 PM EST 4 mg ondansetron (ZOFRAN-ODT) disintegrating tablet 4 mg 4 mg, Oral, Every 6 hours PRN, nausea, vomiting, Starting on Consuelo 05/05/19 at 1548 Given 05/10/2019 11:43 AM EST 4 mg Given 05/10/2019 2:25 AM EST 4 mg Given 05/09/2019 5:42 PM EST 4 mg oxyCODONE tablet 5-10 mg 5-10 mg, Oral, Every 4 hours PRN, moderate pain or 4-6 (on a general 0-10 scale), Starting on Consuelo 05/05/19 at 1548 Given 05/08/2019 8:06 PM EST 10 mg oxyCODONE tablet 5-10 mg 5-10 mg, Oral, Every 4 hours PRN, moderate pain or 4-6 (on a general 0-10 scale), Starting on 05/08/19 at 2126, Hold if RR<12, SBP<90, Sedated/Somnolent, Altered Mental Status, On hold since Tu05/10/2019 at 1019 until manually unheld Given 05/10/2019 8:37 AM EST 5 mg Given 05/10/2019 3:00 AM EST 5 mg Given 05/10/2019 2:25 AM EST 5 mg pantoprazole (PROTONIX) 40 mg in sodium chloride 0.9% 100 mL IVPB-MBP 40 mg, Intravenous, Daily, First dose on Thu05/06/19 at 0900, This is a Minibag Plus preparation. New Bag 05/06/2019 10:10 AM EST 40 mg phenylephrine (ANDRE-SYNEPHRINE) infusion bag 0-300 mcg/min (0-225 mL/hr), Intravenous, Continuous, Starting on Consuelo 05/05/19 at 1845, Recovery Room (only), Is the RN allowed to titrate this medication with the following parameters listed below? Yes, Titration parameter(s): SBP (mmHg), Titrate to this value based on the above chosen parameter(s) (Enter a number): >100, Start infusion at this rate: 10 mcg/min, May titrate dose at increments of ___ every 5 min to achieve defined parameter above: 5 mcg/min Rate/Dose Verify 05/06/2019 12:35 AM EST 180 mcg/min 135 mL/hr Rate/Dose Change 05/06/2019 12:10 AM EST 180 mcg/min 135 m L/hr Rate/Dose Change 05/06/2019 12:00 AM EST 80 mcg/min 60 mL/ hr phenylephrine (ANDRE-SYNEPHRINE) infusion bag 0-300 mcg/min (0-225 mL/hr), Intravenous, [...] AM EST 30 mcg/min 22.5 mL /hr polyethylene glycol packet 17 g, Oral, Daily, First dose on Thu05/06/19 at 1030, Dissolve and stir one packet of powder (17 g) in 4-8 oz of water or juice. Given 05/10/2019 8:38 AM EST 17 g Given 05/09/2019 9:14 AM EST 17 g Given 05/08/2019 8:31 AM EST 17 g potassium chloride in NS syringe (Central Line) 20 mEq 20 mEq, Intravenous, Every 1 hour PRN, other (free text field), KCL Replacement Scale, Starting on 05/07/19 at 0415, KCL Replacement Scale (IV Central Line) 20 to 40 mEq dose range: <3.1 20 mEq x 2 doses and call RC 3.1-3.4 20 mEq x 2 doses 3.5-3.8 20 mEq x 1 dose >3.8 Do not replace Hold scale if creatinine greater than 2 mg/dL or rise of greater than 0.5 in 24hrs, and contact RC. For use in critical care, when allowed by policy. For CENTRAL LINE Use Only New Bag 05/07/2019 5:23 AM EST 20 mEq New Bag 05/07/2019 4:17 AM EST 20 mEq potassium chloride in NS syringe (Central Line) 20 mEq 20 mEq, Intravenous, Every 1 hour PRN, other (free text field), KCL Replacement Scale, Starting on 05/07/19 at 0755, KCL Replacement Scale (IV Central Line) 20 to 40 mEq dose range: Option 1: Please draw potassium level at least 1 hour after potassium repletion complete, and treat the resulting K per scale. <3.1 20 mEq x 2 doses and call RC 3.1-3.4 20 mEq x 2 doses 3.5-3.8 20 mEq x 1 dose >3.8 Do not replace Hold scale if creatinine greater than 2 mg/dL or rise of greater than 0.5 in 24hrs, and contact RC. For use in critical care, when allowed by policy. For CENTRAL LINE Use Only New Bag 05/07/2019 12:29 PM EST 20 mEq potassium chloride SA (K-DUR,KLOR-CON) ER tablet 40 mEq 40 mEq, Oral, Once, On 05/09/19 at 0600, For 1 dose, Swallow tablets whole, do not crush or chew. Capsules may be opened and contents sprinkled on a spoonful of applesauce or pudding and should be swallowed immediately without chewing. Microencapsulated tablets may be dissolved in 6 ounces of water, stir and administer immediately. Given 05/09/2019 5:37 AM EST 40 mEq prochlorperazine edisylate (COMPAZINE) injection 2.5 mg 2.5 mg, Intravenous, Once, On Consuelo 05/05/19 at 2130, For 1 dose, Recovery Room (only), Administer as slow IV push at a rate NOT to exceed 5 mg/min. Given 05/05/2019 8:34 PM EST 2.5 mg prochlorperazine edisylate (COMPAZINE) injection 5 mg 5 mg, Intravenous, Every 4 hours PRN, nausea, vomiting, Starting on Thu05/06/19 at 0205, Administer as slow IV push at a rate NOT to exceed 5 mg/min. Given 05/10/2019 8:30 AM EST 5 mg Given 05/10/2019 3:00 AM EST 5 mg Given 05/09/2019 8:58 PM EST 5 mg propofol (DIPRIVAN) infusion 10 mg/mL Starting on Thu05/06/19 at 0705, For 1 dose, Geeta Dumont Nicole: otist override propofol (DIPRIVAN) infusion 0-83 mcg/kg/min ? 59 [...] AM EST 30 mcg/kg/min 10. 6 mL/hr senna (SENOKOT) tablet 1 tablet 1 tablet, Oral, 2 times daily, First dose on 05/06/19 at 1030 Given 05/10/2019 8:38 AM EST 1 tablet Given 05/09/2019 8:58 PM EST 1 tablet Given 05/09/2019 9:15 AM EST 1 tablet sennosides 8.8 mg/5 mL syrup 8.8 mg 8.8 mg, Oral, 2 times daily, First dose on 05/06/19 at 1030, Liquid may be administered with fruit juice or milk to mask taste. simethicone (MYLICON) chewable tablet 80 mg 80 mg, Oral, Every 6 hours PRN, gas, Starting on 05/09/19 at 1414, Chewable Given 05/10/2019 12:53 PM EST 80 mg Given 05/09/2019 2:23 PM EST 80 mg sodium phosphate 45 mmol in sodium chloride 0.9% 100 mL IVPB (Central Line) 45 mmol, Intravenous, Once, On 05/07/19 at 0445, For 1 dose, For CENTRAL LINE Use Only New Bag 05/07/2019 6:11 AM EST 45 mmol documented in this encounter Active and Recently Administered Medications Times are shown in EST. Scheduled Medication Order 05/08/2019 05/09/2019 05/10/2019 acetaminophen (TYLENOL) tablet 975 mg 975 mg, Oral, Every 6 hours, First dose on Consuelo 05/05/19 at 1645 0435 (Not Given - Provider: Sejal Myrick RN - Reason: Patient/family refused)1515 (Given - Provider: Areli Alejandro RN)1603 (Not Given - Provider: Areli Alejandro RN - Reason: Contraindicated)2147 (Not Given - Provider: Amaris Packer RN - Reason: Patient/family refused) 0238 (Given - Provider: Amaris Packer RN)0915 (Given - Provider: Areli Alejandro, TAWANA)1423 (Given - Provider: Areli Alejandro RN)2058 (Given - Provider: Lou Goodrich RN) 0225 (Given - Provider: Amaris Packer RN)1004 (Given - Provider: Valeria Hunter, TAWANA)1445 (Due - Provider: Amaris Packer RN) buPROPion (WELLBUTRIN SR) SR 12 hr tablet 150 mg 150 mg, Oral, Daily, First dose on Thu05/06/19 at 0900, DO NOT cut, crush, or chew tablets due to increased risk of seizures. 1007 (Not Given - Provider: Areli Alejandro RN - Reason: Patient/family refused) 0915 (Given - Provider: Areli Alejandro RN) 0837 (Not Given - Provider: Valeria Hunter, TAWANA - Reason: Patient/family refused) enoxaparin (LOVENOX) subcutaneous syringe 40 mg 40 mg, Subcutaneous, Daily, First dose on Thu05/09/19 at 1515, Administer subcutaneously. Rotate injection sites. 1502 (Given - Provider: Areli Alejandro RN) 1006 (Given - Provider: Valeria Hunter, TAWANA) hydrocortisone 2.5 % cream Topical, 2 times daily, First dose on Thu05/10/19 at 0900, Apply to rash as needed For TOPICAL Use Only 0833 (Given - Provider: Valeria Hunter, TAWANA - Comment: applied to neck, hand and back.) magnesium oxide (MAG-OX) tablet 400 mg 400 mg, Oral, Daily, First dose on Thu05/09/19 at 0900, Dose is expressed in magnesium oxide salt. Magnesium oxide salt 1.67 mg = elemental magnesium 1 mg. 0915 (Given - Provider: Areli Alejandro RN) 0838 (Given - Provider: Valeria Hunter, TAWANA) polyethylene glycol packet 17 g, Oral, Daily, First dose on Thu05/06/19 at 1030, Dissolve and stir one packet of powder (17 g) in 4-8 oz of water or juice. 0831 (Given - Provider: Areli Alejandro RN) 0914 (Given - Provider: Areli Alejandro RN) 0838 (Given - Provider: Valeria Hunter, TAWANA) potassium chloride SA (K-DUR,KLOR-CON) ER tablet 40 mEq (COMPLETED) 40 mEq, Oral, Once, On Thu05/09/19 at 0600, For 1 dose, Swallow tablets whole, do not crush or chew. Capsules may be opened and contents sprinkled on a spoonful of applesauce or pudding and should be swallowed immediately without chewing. Microencapsulated tablets may be dissolved in 6 ounces of water, stir and administer immediately. 0537 (Given - Provider: Amaris Packer RN) senna (SENOKOT) tablet 1 tablet(Linked Group 1) 1 tablet, Oral, 2 times daily, First dose on Thu05/06/19 at 1030 0831 (Given - Provider: Areli Alejandro RN)1999 (Given - Provider: Amaris Packer RN) 914 (Given - Provider: Areli Alejandro RN)2057 (Given - Provider: Lou Goodrich, TAWANA) 0838 (Given - Provider: Valeria Hunter, TAWANA) sennosides 8.8 mg/5 mL syrup 8.8 mg(Linked Group 1) 8.8 mg, Oral, 2 times daily, First dose on Thu05/06/19 at 1030, Liquid may be administered with fruit juice or milk to mask taste. 0831 (See Alternative - Provider: Areli Alejandro RN)1999 (See Alternative - Provider: Amaris Packer RN) 09 (See Alternative - Provider: Areli Alejandro RN)2057 (See Alternative - Provider: Lou Goodrich RN) 0838 (See Alternative - Provider: Valeria Hunter, TAWANA) Continuous Medication Order 05/08/2019 05/09/2019 05/10/2019 HYDROmorphone (PF) 10 mcg/mL bupivacaine 1 mg/mL (0.1%) in NS (100 mL) PCEA (Premix CMPD) (CANCELED) Epidural, Continuous, Starting on Consuelo 05/05/19 at 1915, Recovery & Post-op, Epidural for PCEA? Yes, Continuous Rate: 4 mL/hr, PCEA patient bolus dose: 2 mL, Lockout Interval: 20 min, One hour dose limit: [calculation = continuous rate + 3x demand dose]: 10 mL 005 (New Bag - Provider: Sejal Myrick RN) PRN Medication Order 05/08/2019 05/09/2019 05/10/2019 bisacodyl (DULCOLAX) suppository 10 mg 10 mg, Rectal, Daily as needed, moderate constipation, Starting on Thu05/06/19 at 0933 diphenhydrAMINE (BENADRYL) capsule 25 mg 25 mg, Oral, Every 6 hours PRN, itching, Starting on Tu05/10/19 at 1015 1143 (Given - Provider: Valeria Hunter, TAWANA) ibuprofen (ADVIL,MOTRIN) tablet 600 mg 600 mg, Oral, Every 6 hours PRN, mild pain or 1-3 (on a general 0-10 scale), Starting on 05/09/19 at 1429 1608 (Given - Provider: Lou Goodrich RN)2152 (Given - Provider: Lou Goodrich RN) 0601 (Given - Provider: Amaris Packer, TAWANA)1425 (Given - Provider: Valeria Hunter, TAWANA) naloxone (NARCAN) injection dilution syringe 0.04-0.08 mg 0.04-0.08 mg, Intravenous, As needed, respiratory depression, Starting on Consuelo 05/05/19 at 1550, For 5 doses, Recovery & Post-op, Titrate to RR greater than 10 and/or O2 Sat greater than 90. See institutional policy. Call ordering service and responding clinician. Mix 0.4 mg (1 mL) of naloxone into 9 mL of NS for a final concentration 0.04 mg/mL. ondansetron (PF) (ZOFRAN) injection 2 mg(Linked Group 2) 2 mg, Intravenous, Every 4 hours PRN, nausea, vomiting, Starting on Consuelo 05/05/19 at 1548, If unable to tolerate PO. 1012 (Given - Provider: Areli Alejandro RN)2125 (Given - Provider: Amaris Packer RN) 0250 (Given - Provider: Amaris Packer RN)0753 (Given - Provider: Aerli Alejandro RN)1247 (See Alternative - Provider: Sis Chin, TAWANA)1742 (See Alternative - Provider: Lou Goodrich RN) 022 (See Alternative - Provider: Amaris Packer RN)1143 (See Alternative - Provider: Valeria Hunter, TAWANA) ondansetron (ZOFRAN-ODT) disintegrating tablet 4 mg(Linked Group 2) 4 mg, Oral, Every 6 hours PRN, nausea, vomiting, Starting on Consuelo 05/05/19 at 1548 1012 (See Alternative - Provider: Areli Alejandro RN)2125 (See Alternative - Provider: Amaris Packer, TAWANA) 0250 (See Alternative - Provider: Amaris Packer RN)0753 (See Alternative - Provider: Areli Alejandro RN)1247 (Given - Provider: Sis Chin RN)1742 (Given - Provider: Lou Goodrich RN) 0225 (Given - Provider: Amaris Packer RN)1143 (Given - Provider: Valeria Hunter, TAWANA) oxyCODONE tablet 5-10 mg (CANCELED) 5-10 mg, Oral, Every 4 hours PRN, moderate pain or 4-6 (on a general 0-10 scale), Starting on Consuelo 05/05/19 at 1548 2006 (Given - Provider: Amaris Packer RN) oxyCODONE tablet 5-10 mg 5-10 mg, Oral, Every 4 hours PRN, moderate pain or 4-6 (on a general 0-10 scale), Starting on Thu05/08/19 at 2126, Hold if RR<12, SBP<90, Sedated/Somnolent, Altered Mental Status, On hold since Thu05/10/2019 at 1019 until manually unheld 0538 (Given - Provider: Amaris Packer RN)1023 (Given - Provider: Areli Alejandro RN)1244 (Given - Provider: Sis Chin RN)1742 (Given - Provider: Lou Goodrich RN)2152 (Given - Provider: Lou Goodrich RN) 0225 (Given - Provider: Amaris Packer, TAWANA)0300 (Given - Provider: Amaris Packer RN - Comment: Pt vomited previous 5mg dose)0837 (Given - Provider: Valeria Hunter, TAWANA)1019 (Held by provider - Provider: Mj Ramsey MD)1734 (Unheld by provider - Provider: Automatic Discharge Provider) potassium chloride in NS syringe (Central Line) 20 mEq 20 mEq, Intravenous, Every 1 hour PRN, other (free text field), KCL Replacement Scale, Starting on Thu05/07/19 at 0415, KCL Replacement Scale (IV Central Line) 20 to 40 mEq dose range: <3.1 20 mEq x 2 doses and call RC 3.1-3.4 20 mEq x 2 doses 3.5-3.8 20 mEq x 1 dose >3.8 Do not replace Hold scale if creatinine greater than 2 mg/dL or rise of greater than 0.5 in 24hrs, and contact RC. For use in critical care, when allowed by policy. For CENTRAL LINE Use Only prochlorperazine edisylate (COMPAZINE) injection 5 mg 5 mg, Intravenous, Every 4 hours PRN, nausea, vomiting, Starting on Thu05/06/19 at 0205, Administer as slow IV push at a rate NOT to exceed 5 mg/min. 0453 (Given - Provider: Sejal Myrick RN) 0537 (Given - Provider: Amaris Packer, TAWANA)1024 (Given - Provider: Areli Alejandro, TAWANA)2058 (Given - Provider: Lou Goodrich, TAWANA) 0300 (Given - Provider: Amaris Packer, TAWANA)0830 (Given - Provider: Valeria Hunter, TAWANA) simethicone (MYLICON) chewable tablet 80 mg 80 mg, Oral, Every 6 hours PRN, gas, Starting on Thu05/09/19 at 1414, Chewable 1423 (Given - Provider: Areli Alejandro, TAWANA) 1253 (Given - Provider: Valeria Hunter, TAWANA) Linked Groups Order Group 1: sennosides 8.8 mg/5 mL syrup 8.8 mgJump to med 8.8 mg, Oral, 2 times daily, First dose on Thu05/06/19 at 1030, Liquid may be administered with fruit juice or milk to mask taste. Or senna (SENOKOT) tablet 1 tabletJump to med 1 tablet, Oral, 2 times daily, First dose on Thu05/06/19 at 1030 Group 2: ondansetron (ZOFRAN-ODT) disintegrating tablet 4 mgJump to med 4 mg, Oral, Every 6 hours PRN, nausea, vomiting, Starting on Consuelo 05/05/19 at 1548 Or ondansetron (PF) (ZOFRAN) injection 2 mgJump to med 2 mg, Intravenous, Every 4 hours PRN, nausea, vomiting, Starting on Consuelo 05/05/19 at 1548, If unable to tolerate PO. documented in this encounter Care Teams Steam Train Driver Relationship Specialty Start Date End Date Jennifer Bridges NP [address] [place] [phone] [email or web address] PCP - General 12/31/18 Hayley Pandey MD [address] [place] [address] Historical LMR Provider 01/15/19 03/30/21 Chloé Sánchez CNM [address] [place] [address] Historical LMR Provider 01/15/19 03/30/21 Dayana Galindo MD [address] [place] [address] Historical LMR Provider 01/15/19 03/30/21 Ruiz Lewis DO [address] [place] [address] [email or web address] Historical LMR Provider 01/15/19 03/30/21 Cain Morales MD 10 [facility] 401 [place] [address] Historical LMR Provider 01/15/19 2 Kate Leal MD 15 [facility] 102 [place] [address] [email or web address] Historical LMR Provider 01/15/19 03/30/21 Jennifer Bridges NP 60 [facility] 3 [place] [address] [email or web address] Historical LMR Provider 01/15/19 10/31/19 Tari Willams 15 [facility] 201 [place] [address] Historical LMR Provider 01/15/19 2 Kody Ayon MD 60 [facility] 300 [place] [address] Historical LMR Provider 01/15/19 Cynthia Allen CNM [address], [place] [address] [email or web address] Historical LMR Provider 01/15/19 03/30/21 Tari Urias DO 10 [facility] 200 [place] [address] Historical LMR Provider 01/15/19 10/31/19 Palak Culver CNM [address] [address] [email or web address] Historical LMR Provider 01/15/19 03/30/21 Damaso Carranza MD 15 [facility] 102 [place] [address] Historical LMR Provider 01/15/19 Ian Youssef MD [address] [place] [address] Historical LMR Provider 01/15/19 2 Jc Jacobs MD [address] [place] [address] [email or web address] Historical LMR Provider 01/15/19 03/30/21 Eliz Saleem CNM [employer] [facility], [place] [address] [email or web address] Historical LMR Provider 01/15/19 03/30/21 documented as of this encounter Additional Source Comments The information contained in this document represents components of the legal health record. It is not the complete legal health record.[facility]
--- OUTSIDE RECORDS SUMMARY | 2023-11-16 12:21 | XMS_ITS | Encounter Summary ---
Author Organization [facility] Address [phone] [facility] [place] [address] Care Team Providers Care Waitstaff Name Role Phone Jennifer Bridges NP Primary Care Provider Hayley Pandey MD Unavailable + [phone] Chloé Sánchez CNM Unavailable [phone] Dayana Galindo MD Unavailable Ruiz Lewis DO Unavailable Xiomara Cain Morales MD Unavailable Kate Leal MD Unavailable [phone] Jennifer Bridges NP Unavailable [phone] Tari Willams Unavailable [phone] Kody Ayno MD Unavailable [phone] Cynthia Allen CNM Unavailable [phone] Tari Urias DO Unavailable [phone] Palak Culver CNM Unavailable [phone] Damaso Carranza MD Unavailable Ian Youssef MD Unavailable [phone] Jc Jacobs MD Unavailable Elzi Saleem [facility] Unavailable Belén Bravo MD Primary Care Provider Unknown, Unknown Primary Care Provider Kelly henson Encounter Details Date Type Department Care Team (Late st Contact Info) Description 05/06/2019 Procedure Pass [facility] PERIOPERATIVE DEPT [address] [place] [address] Social History Tobacco Use Types Packs/Day Years [...] CoV-Risk 01/11/2020 01/11/2020 01/25/2020 1:23 AM EST CoV-Risk 02/13/2020 02/13/2020 02/27/2020 1:23 AM EST documented as of this encounter Care Teams Waitstaff Relationship Specialty Start Date End Date Jennifer Bridges NP [address] [phone] [email or web address] PCP - General 12/31/18 10/31/19 Belén Bravo MD 36 [place] [address] [email or web address] PCP - General Family Medicine 11/01/19 06/08/23 Unknown, Benjamin, PCP - General 07/31/23 Hayley Pandey MD 15 [place] [address] [email or web address] Historical LMR Provider 01/15/19 03/30/21 Chloé Sánchez CNM 15 [facility] 102 [place] [address] [email or web address] Historical LMR Provider 01/15/19 03/30/21 Dayana Galindo MD 15 [facility] 102 [place] [address] [email or web address] Historical LMR Provider 01/15/19 03/30/21 Ruiz Lewis DO [address] [place] [address] [email or web address] Historical LMR Provider 01/15/19 03/30/21 Cain Morales MD [address] [place] [address] 401 [place] [address] Historical LMR Provider 01/15/19 2 Kate Leal MD [address] [place] [address] 102 [place] [address] [email or web address] Historical LMR Provider 01/15/19 03/30/21 Jennifer Bridges, SUPERVISOR CASE LOADING 60 [facility] 3 [place] [phone] [email or web address] Historical LMR Provider 01/15/19 10/31/19 Tari Willams 15 [facility] 201 [place] [address] Historical LMR Provider 01/15/19 2 Kody Ayon MD [address] [place] [address] 300 [place] [address] Historical LMR Provider 01/15/19 Cynthia Allen CNM [employer], [place] [address] Historical LMR Provider 01/15/19 03/30/21 Tari Urias DO [address] [place] [address] 200 [place] [address] Historical LMR Provider 01/15/19 10/31/19 Palak Culver CNM 15 [facility] 102 [place] [address] Historical LMR Provider 01/15/19 03/30/21 Damaso Carranza MD 15 [facility] 102 [place] [address] Historical LMR Provider 01/15/19 Ian Youssef MD [address] [place] [address] 100 [place] [address] Historical LMR Provider 01/15/19 2 Jc Jacobs MD [address] [place] [address] [email or web address] Historical LMR Provider 01/15/19 03/30/21 Eliz Saleem CNM [employer], [place] [address] [email or web address] Historical LMR Provider 01/15/19 03/30/21 documented as of this encounter Additional Source Comments The information contained in this document represents components of the legal health record. It is not the complete legal health record.[facility]
--- OUTSIDE RECORDS SUMMARY | 2023-11-16 12:22 | XMS_ITS | Encounter Summary ---
Author Organization [facility] Address [phone] [facility] [place] [address] Care Team Providers Care Wire Spinner Name Role Phone Jennifer Bridges NP Primary Care Provider Hayley Pandey MD Unavailable + [phone] Chloé Sánchez CNM Unavailable [phone] Dayana Galindo MD Unavailable Ruiz Lewis DO Unavailable Xiomara Cain Morales MD Unavailable Kate Leal MD Unavailable [phone] Jennifer Bridges NP Unavailable [phone] Tari Willams Unavailable [phone] Kody Ayon MD Unavailable [phone] Cynthia Allen CNM Unavailable [phone] Tari Urias DO Unavailable [phone] Palak Culver CNM Unavailable [phone] Damaso Carranza MD Unavailable Ian Youssef MD Unavailable [phone] Jc Jacobs MD Unavailable Eliz Saleem [facility] Unavailable Belén Bravo MD Primary Care Provider Unknown, Unknown Primary Care Provider Kelly henson Encounter Details Date Type Department Care Team (Late st Contact Info) Description 05/05/2019 Procedure Pass [facility] [address] [facility] [place] [address] Social History Tobacco Use Types Packs/Day [...] documented as of this encounter Care Teams Wire Spinner Relationship Specialty Start Date End Date Jennifer Bridges NP [address] [phone] [email or web address] PCP - General 12/31/18 10/31/19 Belén Bravo MD 36 [place] [address] [email or web address] PCP - General Family Medicine 11/01/19 06/08/23 Unknown, Benjamin, PCP - General 07/31/23 Hayley Pandey MD 15 [place] [address] [email or web address] Historical LMR Provider 01/15/19 03/30/21 Chloé Sánchez CNM 15 [facility] 102 [place] [address] [email or web address] Historical LMR Provider 01/15/19 03/30/21 Dayana Galindo MD 15 [facility] 102 [place] [address] [email or web address] Historical LMR Provider 01/15/19 03/30/21 Ruiz Lewis DO [address] [place] [address] [email or web address] Historical LMR Provider 01/15/19 03/30/21 Cain Morales MD [address] [place] [address] 401 [place] [address] Historical LMR Provider 01/15/19 2 Kate Leal MD [address] [place] [address] 102 [place] [address] [email or web address] Historical LMR Provider 01/15/19 03/30/21 Jennifer Bridges, ASSISTANT STORE DIRECTOR 60 [facility] 3 [place] [phone] [email or web address] Historical LMR Provider 01/15/19 10/31/19 Tari Willams 15 [facility] 201 [place] [address] Historical LMR Provider 01/15/19 2 Kody Ayon MD [address] [place] [address] 300 [place] [address] Historical LMR Provider 01/15/19 Cynthia Allen CNM [employer], [place] [address] Historical LMR Provider 01/15/19 03/30/21 Tari Urias DO [address] [place] [address] 200 [place] [address] Historical LMR Provider 01/15/19 10/31/19 Palak Culver CNM 15 [facility] 102 [place] [address] Historical LMR Provider 01/15/19 03/30/21 Damaso Carranza MD 15 [facility] 102 [place] [address] Historical LMR Provider 01/15/19 Ian Youssef MD [address] [place] [address] 100 [place] [address] Historical LMR Provider 01/15/19 2 Jc Jacobs MD [address] [place] [address] [email or web address] Historical LMR Provider 01/15/19 03/30/21 Eliz Saleem CNM [employer], [place] [address] [email or web address] Historical LMR Provider 01/15/19 03/30/21 documented as of this encounter Additional Source Comments The information contained in this document represents components of the legal health record. It is not the complete legal health record.[facility]
--- OUTSIDE RECORDS SUMMARY | 2023-11-16 12:22 | XMS_ITS | Encounter Summary ---
Author Organization [facility] Address [phone] [facility] [place] [address] Care Team Providers Care Cloth Classer Name Role Phone Jennifer Bridges NP Primary Care Provider Hayley Pandey MD Unavailable + [phone] Chloé Sánchez CNM Unavailable [phone] Dayana Galindo MD Unavailable Ruiz Lewis DO Unavailable Xiomara Cain Morales MD Unavailable Kate Leal MD Unavailable [phone] Jennifer Bridges NP Unavailable [phone] Tari Willams Unavailable [phone] Kody Ayon MD Unavailable [phone] Cynthia Allen CNM Unavailable [phone] Tari Urias DO Unavailable [phone] Palak Culver CNM Unavailable [phone] Damaso Carranza MD Unavailable Ian Youssef MD Unavailable [phone] Jc Jacobs MD Unavailable Eliz Saleem [facility] Unavailable Reason for Visit * Auth/Cert Specialty Diagnoses / Procedures Referred By Theresa t Referred To Contact Diagnoses 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] Procedures SD RADICAL ABD HYSTEREC+PELV NODES SD REMOVE PELVIS LYMPH NODES HYSTERECTOMY RADICAL LYMPHADENECTOMY PELVIC Referral ID Status Reason Start Date Expiration Date Visits Re quested Visits Authorized [id number] 1 1 Encounter Details Date Type Department Care Team (Late st Contact Info) Description 05/06/2019 4:00 AM EST - 05/06/2019 6:55 AM EST Surgery [facility] PERIOPERATIVE DEPT [address] [place] [address] Marce Cole MD [address] [place] [address] [email or web address] EXPLORATORY LAPAROTOMY & WASHOUT Surgery Details Date/Time Status Location OR Service Patient Class Case Class Case Type Trauma Case? 05/06/19 4:00 AM Posted [facility] OR OR 30 Gynecology Inpatient Emergent Panel 1 Procedure LRB Anes Op Region Wound Class Comments EXPLORATORY LAPAROTOMY & WASHOUT N/A General Clean (1) Surgeon Surgeon Role Service Panel Marce Cole MD Primary Gynecology 1 documented in this encounter Social History Tobacco [...] Sign Reading Time Taken Comments Blood Pressure 75/45 05/06/2019 3:40 AM EST Pulse 63 05/06/2019 6:45 AM EST Temperature 36.8 ??C (98.3 ??F) 05/06/2019 6:39 AM ES T Respiratory Rate 16 05/06/2019 6:45 AM EST Oxygen Saturation 100% 05/06/2019 6:45 AM EST Inhaled Oxygen Concentration - - Weight 59 kg (130 lb) 05/05/2019 8:14 AM EST Height 149.9 cm (4' 11) 05/05/2019 8:14 AM EST Body Mass Index 26.26 05/05/2019 8:14 AM EST documented in this encounter Discharge Summaries * Mj Ramsey MD - 05/10/2019 11:21 AM EST Images from the original note were not included. Physician Discharge Summary Admit date: 05/05/2019 Discharge date: 05/10/2019 Patient Information Marylou Hernandez, 28 y.o. female ( = 1990) Home Address: [address] [place] [address] (home) What language do you prefer to use when discussing your healthcare?: Tongan What language do you prefer for written communication?: Tongan Type of Advance Care Directive(s): Health Care [...] Open case Staff: Comfort May MD - Areli Gaytan MD - FellowMagen borges MD - Anesthesia AttendingCopper Springs East HospitalVane diaz CRNA - CRNAAnesthesia FellowAnesthesia ResidentAnesthesia AttendingMarce Mike MD - Primary 05/06/2019 Exploratory Laparotomy & Washout Marce Cole Open case Staff: Comfort May MD - FellowCRNAAnesthesia Tarynconfluence healthJabari MD - Anesthesia AttendingEcu Health Duplin HospitalMich javed MD, BERNARD - Anesthesia ResidentGrover Memorial HospitalVera MD - Anesthesia ResidentMarce Cloe MD - Primary Procedures this admission None Non (OR) Procedures: 05/06 314 Note By: Mahamed Bentley MD Pending Results Procedure Component Value Ref Range Date/Time Creatinine (fluid--not CSF) [[id number]] Collected: 05/10/19 0845 Lab Status: In process Specimen: Other from [facility] fluid Updated: 05/10/19 1106 Hospital Course Marylou Hernandez is a 28 y.o. 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 Postoperative course c/b hypotension with increasing pressor requirement, transferred to [place] [address] ICU for further management - then eventually w/ hgb drop, +FAST c/f significant hemoperitoneum; and clinical c/f intraabdominal bleed, s/p re- exploration POD#1. ===== ICU COURSE 05/06/2019 - 05/07/2019, [facility] FLOOR COURSE 05/07-05/10 ===== The patient [...] was admitted to the floor with a hughes catheter in place. The plan is for the hughes to remain in place for 2 weeks in the setting of radical dissection for the hysterectomy. She demonstrated good UOP throughout her postoperative course, other than urine output dropoff in setting of initial intraabdominal bleeding overnight POD#0-POD#1. Thereafter with nl UOP. Hughes was kept in place at discharge. # [...] pelvis and removed prior to discharge on 05/10. #OBGYN: The patient is relatively recent - during her postoperative recovery she dd continue #Dispo: The patient was discharged to home on POD#5 with plan for follow up in 2 weeks post-op for Hughes removal/TOV; at which point final pathology will [...] daily. Micronor 1 tab po QD 95-iron wmh-fpkpc-svh ( + DHA) 28 mg iron-800 mcg-200 [...] iron-800 mcg-200 mg Cmpk Generic drug: 95-iron dmy-zcuax-mmi Wellbutrin XL 150 MG ER 24 hr tablet Generic drug: buPROPion Last time this was given: Ask your nurse or doctor Take 150 mg by mouth daily. For depression Where to Get Your Medications These medications were sent to [facility] [id number], [place] - [address] [address] ?? acetaminophen 325 mg tablet ?? diphenhydrAMINE 25 mg capsule ?? enoxaparin 40 mg/0.4 mL Syrg subcutaneous syringe ?? ibuprofen 600 MG tablet ?? oxyCODONE 5 MG immediate release tablet Hospital Care Team Service: Gynecologic Oncology Inpatient Attending: Marce Cole MD Attending phys phone: Discharge Unit: [facility] Primary Care Physician: Jennifer Bridges, PREFORM PLATE MAKER [phone] Transitional Plan Scheduled appointments: Scheduled Appointments (maximum listed = 10) Provider Department Dept Phone Center 05/17/2019 1:00 PM Marce Cole MD [facility] Center for Gynecology Oncology [phone] 06/20/2019 9:00 AM (Arrive by 8:45 AM) Ryan Barr MD [facility] Neuro Services [phone] Signed Discharge Orders (From admission, onward) Ordered 05/10/19 1119 Activity as tolerated 05/10/19 1119 Discharge diet Comments: Diet Regular 05/10/19 1119 Remove dressing in 24 hours 05/10/19 1119 For immediate questions regarding your hospitalization, your medications, and any pending test results please contact your doctor in the hospital: Marce Cole MD at . Comments: For immediate questions regarding your hospitalization, your medications, and any pendingtest results please contact your doctor in the hospital: Marce Cole MD at [phone]. 05/10/19 1119 For immediate questions regarding your hospitalization, your medications, and any pending test results please contact the Gynecologic Oncology fellow hotel front desk clerk at [phone] and ask him/her to be paged. Comments: For immediate questions regarding your hospitalization, your medications, and any pendingtest results please contact the Gynecologic Oncology fellow hotel front desk clerk at [phone] and ask him/herto be paged. Discharge instructions and important events and results Dear Marylou Hernandez, It was a pleasure taking care of you during your hospital stay. As you are aware, you were admittedto the hospital for surgery. If you have any questions or concerns, please call the CLINICAL LEADER Oncology clinic at [phone] (option [phone]), or [phone] for our 24-hour call line. Here is a summary of your upcoming appointments: Future Appointments 05/17/2019 1:00 PM Marce Cole MD [id number] None 06/20/2019 9:00 AM Ryan Barr MD [facility] None Regarding your medications, you can take both motrin and tylenol every 6 hours, as needed. This is the best way to control your pain for the first few days at home: -With breakfast take 400-600mg (2-3 ysql-crn-ufbwoov tablets, or 1 prescription tablet) Motrin -3 [...] be sure to reach out. Sincerely, Your [facility] CLINICAL [facility] ONC Care Team Opioids: Safe use, storage, [...] unit (a disposal unit is located in [facility] near [facility] and most police stations now have disposal or take back units) o Find a disposal site near you at this website: https://www.deadiversion.[facility] centeroj.gov/pubdispsearch ??? If no medicine take-back program is [...] for medicines recommended for disposal by flushing. http://www.fda.gov/ForConsumers/ConsumerUpdates/qey688329.htm Exam Temperature: 36.6 ??C (97.9 ??F) (05/10/19722) Heart Rate: 75 (05/10/19722) BP: 126/84 (05/10/19722) Respiratory Rate: 20 (05/10/19722) SpO2: 99 % (05/10/19722) O2 Device: None (Room air) (05/10/19722) O2 Flow Rate (L/min): 10 FiO2 (%): 40 % (05/06/191399) Weight: 59 kg (130 lb) (05/05/19813) Height: [...] 138 05/06/2019518 K 4.1 05/09/20192039 KPL 4.1 05/06/2019 0519 CL 102 05/09/20192039 CO2 25 05/09/20192039 BUN [...] fill ok 15 tablet 05/10/2019 10/04/2019 95-iron ozw-yjmfr-yax 28 mg iron-800 mcg-200 mg Cmpk 11/09/2021 documented as of this encounter Progress Notes * Samina Amin, RN - 05/10/2019 11:59 AM EST CASE [...] Community Services, etc.): Support System:Spouse/significant other Primary pet caregiver: Primary Language:Tongan Jacquard Loom Weaver: TRANSPORTATION: MEDS/PHARMACY: Prescription benefits: Insurance verified: Bed Hold: INSURANCE/FINANCIAL: Payor: [employer] / Plan: Danger PPO / Product Type: PPO / Subscriber number: [id number] Subscriber name: ZAC HERNANDEZ Primary Visit Coverage Payer Plan Plan Address Plan Phone Sponsor Code Group Number Group Name [employer] PPO [address] [place] [address] Primary Visit Coverage Subscriber Subscriber ID Subscriber Name Subscriber N Subscriber Address [id number] ZAC HERNANDEZ [address] [place] [address] PCP Confirmed/ PHYSICIANS/Other Supports: Jennifer Bridges APRN CM PLAN/ Discharge planning: Patient/Family/Caregiver discharge preference/goals : Home NEXT Action: Assessment/High Risk Screening:Complete Next Steps:CM will continue to follow Lives with , mother is a nurse, independent prior to admission, lovenox teaching and hughes care instructions to be completed before discharge, lovenox script sent to [facility] in [facility] , anticipate dc to home today, No home care services indicated. Case management will continue to follow the patient with the treatment team and is available for consultation as needed. * Osbaldo, Makenna Cook MD - 05/10/2019 6:10 AM EST [facility] Progress Note 05/10/2019 6:16 AM O/E: AFVSS. PM labs stable, hct 34 from 31. UOP over 24 hours 1100cc/ 200 since midnight, JEANETTE drain output over 24 hours 190cc, 100cc since midnight. Patient overall comfortable, tolerated half a piece of pizza and 2 Macedonian ices for dinner. Written for hydrocortisone cream for rash on bottom in am. Edited by: Mj Ramsey MD at 05/10/2019 0519 S: Feeling well. Had some pizza last night, which went well but later vomited hours later. Vomited in the setting of taking pain meds. No nausea now. Pumping going well. Ambulating. Passing gas, no BM yet. O: Temp: [36.3 ??C (97.3 ??F)-36.8 ??C (98.2 ??F)] 36.8 ??C (98.2 ??F) (05/10 306) HR: [69-78] 75 (05/10 306) BP: (117-130)/(82-87) 130/82 (05/10 306) RR: Respiratory Rate: [16-20] 20 O2Sat: [97 %-100 %] 98 % (05/10 306) I/O (24hr): Intake/Output Summary (Last 24 hours) at 05/10/2019 0616 Last data filed at 05/10/2019 0557 Gross per 24 hour Intake 880 ml Output 1450 ml Net -570 ml PEx: Gen: R eye deviant, vesicular rash on neck from tape CV/Pulm: breathing comfortably on RA, extremities warm and well perfused Abd: moderately distended, incision c/d/i with clair, JEANETTE drain w/ serous output Ext: wwp, no edema CBC Recent Labs 05/08/19 0511 05/08/19204905/09/192039 WBC 2.80* 3.94* 3.60* HGB 10.6* 11.1* 11.7* HCT 30.3* 31.7* 34.9* PLT 74* 100* 114* CHEM Recent Labs 05/07/19 1639 05/07/19 2108 05/08/19204905/09/192039 NA -- 140 141 139 K -- 3.8 3.3* 4.1 CL -- 101 102 102 CO2 -- 25 25 25 BUN -- 5* 6* 7* CRE -- 0.55* 0.52* 0.55* GLU -- 87 111* 113* CA -- 8.5 8.7 9.1 MG 2.3 2.1 1.8 1.8 PHOS 2.7 -- -- -- A/P: 28yo w/ stage IB1, 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 Post-op course c/b HoTN with increase pressor requirement c/f intraabdominal bleeding requiringre- exploration and evacuation of hemoperitoneum on POD#1. 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 Followedby so delay in treatment/followup; Now s/p radical hysterectomy, bilateral salpingectomy,pelvic lymph node dissection - Imaging preop including: MRI 04/29- no e/o malignancy. PET CT- no FDG avid mets to neck, chest abdomen or pelvis. Primary tumor not clearly visualized. No abdominopelvic mets identified. 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 Pressors continued in ICU, now weaned off. [ ] CTM BPs- nml range #Pulm: Intubated POD0-1, Extubated 05/06-> RA #GI: NPO-> regular diet 05/07, but w/ low intake -mIVF DC'd 16AM [ ] ensure tolerating PO without emesis #: Hughes in place plan for 2 weeks. Plan for discharge with hughes. [ ] Strict Is/Os- net positive since admission (s/p 10 IV lasix x1 215 AM) DO NOT REMOVE HUGHES #Heme: EBL 1000 mL. Baseline Hct 37.5. Re-op for hemoperitoneum POD1. Total received 9 u pRBC, 4x4 FFP, plts [ ] Trend CBC, INR. Hgb now stable at 9-10 coags have normalized, plts still low but recovering, most recent 100 #ID: Afebrile. S/p periop abx. No c/f infection. #Endo: No issues #Ppx: SCDs, Lovenox #Access - PIVs #TLD [ ] JEANETTE drain (pelvis) -dc prior to discharge [ ] f/u drain creatinine today #OBGYN: [] , support post operative #Dispo: pending post-op advance/clinical improvement [ ] Dc summary updated [ ] F/u appts emailed [ ] lovenox rx Edited by: Mj Ramsey MD at 05/10/2019 8779 Discussed with [facility] fellow, Dr. Vega, and [facility] Attending, Dr. Roblero, who agrees withmanagement and plan. 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 Post-op course c/b HoTN with increase pressor requirement c/f intraabdominal bleeding requiring re- exploration and evacuation of hemoperitoneum. ?? A&Ox3. VSS. Midline incision TECHNICIAN ANATOMIC PATHOLOGY, approximated. Blisters on neck from tegaderm, team aware. C/opain, PO pain meds with +effect. Epidural removed 05/09. Some nausea, x1 episode of vomiting, Zofranand Compazine available. OOB x1 assist. I/S encouraged. PIV x1. Tolerating small amts regular diet.+flatus, +smear BM. Hughes to remain in place x2 weeks. JEANETTE x1 RLQ, minimal leakage at site, dressing in place. Patient has 7month son at home, breast pump at bedside, independent with pumping. HusbandJessch involved in care. 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 Post-op course c/b HoTN with increase pressor requirement c/f intraabdominal bleeding requiring re- exploration and evacuation of hemoperitoneum. ?? A&Ox3. VSS. Midline incision CARLIN, approximated. Blisters on neck from tegaderm, team aware. C/opain, PO pain meds with good effect. Epidural removed this AM. Some nausea, no vomitting, IV Zofran& Compazine given w/ +effect. OOB x1 assist. I/S encouraged. PIV x1. Tolerating small amts regular diet. +flatus, -BM. Hughes to remain in place x2 weeks. JEANETTE x1 RLQ, minimal leakage at site, dressing in place. Patient has 7month son at home, breast pump at bedside, independent with pumping. Oscar involved in care. 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 Post-op course c/b HoTN with increase pressor requirement c/f intraabdominal bleeding requiring re- exploration and evacuation of hemoperitoneum. ?? A&Ox3. Afebrile. VSS. HR 80s-90s. Midline incision TECHNICIAN ANATOMIC PATHOLOGY, approximated. Blisters on neck from tegaderm, team aware. C/o pain, PO pain meds. Epidural removed this AM. Some nausea, no episodes of vomiting. IV Zofran & Compazine given w/ +effect. OOB x1 assist. I/S encouraged. PIV x1. Toleratingsmall amts regular diet. +flatus, -BM. Hughes to remain in place x2 weeks. JEANETTE x1 RLQ. Patient has 7month son at home, breast pump at bedside, independent with pumping. Oscar involved in care. * Javed Martinez MD - 05/09/2019 11:19 AM EST [facility] Regional Anesthesia & Acute Periop Pain Service? Epidural/Peripheral Nerve Block Catheter Progress Note ? Patient: Marylou Hrenandez Hospital day: 4 POD: Post Op Day #4 Procedure: Procedure(s): EXPLORATORY LAPAROTOMY & WASHOUT Subjective: Patient states her pain is very well controlled. Primary service requesting epidural removal today. Epidural/PNB Catheter Type: removed Other Analgesics: PAIN ID Vitals and Labs (Last 0 days) No flowsheets data found Therapeutic Meds Medication Dose/Rate, Frequency, Route Last Action acetaminophen (TYLENOL) tablet 975 mg 975 mg, Q6H, Oral Given: 05/09 914 oxyCODONE tablet 5-10 mg 5 mg, Q4H PRN, Oral Given: 05/09 102 PSYCH ID Vitals and Labs (Last 0 days) No flowsheets data found Therapeutic Meds Medication Dose/Rate, Frequency, Route Last Action buPROPion (WELLBUTRIN SR) SR 12 hr tablet 150 mg 150 mg, Daily, Oral Given: 02/17 0915 Anticoagulants: ANTICOAGULATION ID Vitals and Labs (Last 0 days) No flowsheets data found Therpeutic Meds No matching active medications Drains (ETT, Hughes, Chest tube, & Nasogastric Tube): Active Lines/Drains/Airways/Wounds Peripheral Intravenous Line Peripheral IV Anterior;Right Forearm 1 day Drain Urinary Catheter Two-way 4 days Closed/Suction Drain 1 bard drain Bulb 19 Fr. Right;Lateral Abdomen 3 days Wound Wound Incision Medial;Lower;Other (comment) Abdomen 4 days Pain Score at Rest: 0/10 Pain Score with Movement: 0/10 Diet: Full diet NGT: NO Activity: Out of bed to chair Temp Range Last 24h/Current Temp: [36.4 ??C (97.5 ??F)-36.8 ??C (98.2 ??F)] (P) 36.6 ??C (97.9 ??F) Catheter damon at Skin: out Insertion Site Benign: YES Focused neurologic exam: Lower extremity sensation and strength intact Hughes in Place: YES Epidural/PNB Catheter Removed: YES - Tip intact: YES - Reason for removal: natural course, pain well controlled Labs: Lab Results Component Value Date WBC 3.94 (L) 05/08/2019 HGB 11.1 (L) 05/08/2019 HCT 31.7 (L) 05/08/2019 PLT 100 (L) 05/08/2019 Lab Results Component Value Date PT 14.4 05/07/2019 PT 15.5 (H) 05/06/2019 PT 16.6 (H) 05/06/2019 INR 1.1 05/07/2019 INR 1.2 (H) 05/06/2019 INR 1.4 (H) 05/06/2019 Lab Results Component Value Date PTT 29.4 05/07/2019 Assessment/Plan: 28 y.o. female now Post Op Day #4 s/p Procedure(s): EXPLORATORY LAPAROTOMY & WASHOUT. Ms. Hernandez is currently comfortable with her epidural without side effects. Epidural cap trialtolerated well. Now s/p epidural discontinuation. - Continue oxycodone 5-10mg PO q4hrs PRN. - APS will sign off at this time. Javed Martinez MD [facility] and Acute Perioperative Pain Service? Pager #[phone]? Associated attestation - Christoph Laurent MD - 05/09/2019 11:25 AM EST Patient seen and examined and treatment plan discussed in detail. All questions answered. Christoph Laurent M.D. Acute Pain Attending * Tressa Terrazas MD - 05/09/2019 7:16 AM EST [facility] Progress Note 05/09/2019 7:17 AM O/E: AFVSS. PCEA capped with plan for removal today. Tolerating some regular diet. Endorses flatus.written for repletion for K 3.3 and Mag 1.9. UOP .6cc/kg/hr. JEANETTE drain with 200cc for 05/08. CBC withstable hct at 31 and uptrending platelets to 100. Edited by: Kirstin Finn MD at 05/09/2019 0615 S: Feeling better. Didn't take in a ton of PO yesterday mostly because she didn't like her food. Walking. Pain well controlled. Pumping. O: Temp: [36.4 ??C (97.5 ??F)-36.8 ??C (98.2 ??F)] 36.8 ??C (98.2 ??F) (05/09 544) HR: [69-92] 80 (05/09 544) BP: (112-133)/(65-80) 129/76 (05/09 544) RR: Respiratory Rate: [12-16] 16 O2Sat: [96 %-99 %] 97 % (05/09 544) I/O (24hr): Intake/Output Summary (Last 24 hours) at 05/09/2019 0717 Last data filed at 05/09/2019 0529 Gross per 24 hour Intake 1069.8 ml Output 1280 ml Net -210.2 ml PEx: Gen: Fatigued appearing, R eye deviant, vesicular rash on neck from tape CV/Pulm: breathing comfortably on RA, extremities warm and well perfused Abd: moderately distended, incision c/d/i with clair, JEANETTE drain w/ sang > serous output Ext: wwp, no edema CBC Recent Labs 05/07/19210705/08/19 0511 05/08/192049 WBC 3.57* 2.80* 3.94* HGB 9.6* 10.6* 11.1* HCT 28.1* 30.3* 31.7* PLT 75* 74* 100* CHEM Recent Labs 05/07/19 0245 05/07/19 1429 05/07/19 1639 05/07/19210705/08/192049 NA 140 -- -- -- 140 141 K 3.3* < > 4.0 -- 3.8 3.3* CL 104 -- -- -- 101 102 CO2 24 -- -- -- 25 25 BUN 6* -- -- -- 5* 6* CRE 0.63 -- -- -- 0.55* 0.52* GLU 87 -- -- -- 87 111* CA 7.7* -- -- -- 8.5 8.7 MG 1.8 < > -- 2.3 2.1 1.8 PHOS 1.3* -- -- 2.7 -- -- < > = values in this interval not displayed. 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 Post-op course c/b HoTN with increase pressor requirement c/f intraabdominal bleeding requiringre- exploration and evacuation of hemoperitoneum on POD#1. 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 Followed by so delay in treatment/followup; Now s/p radical hysterectomy, bilateral salpingectomy, pelvic lymph node dissection - Imaging preop including: MRI 04/29- no e/o malignancy. PET CT- no FDG avid mets to neck, chest abdomen or pelvis. Primary tumor not clearly visualized. No abdominopelvic mets identified. 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 Pressors continued in ICU, now weaned off. [ ] CTM BPs- nml range #Pulm: Intubated POD0-1, Extubated 05/06-> RA #GI: NPO-> regular diet 05/07, not a ton of intake [ ] encourage -mIVF DC'd 05/08AM #: Hughes in place plan for 2 weeks. Plan for discharge with hughes. [ ] Strict Is/Os- net positive 7.5 L since admission, given 10 IV lasix x1 05/07 AM DO NOT REMOVE HUGHES #Heme: EBL 1000 mL. Baseline Hct 37.5. Re-op for hemoperitoneum POD1. Total received 9 u pRBC, 4x4 FFP, plts [ ] Trend CBC, INR. Hgb now stable at 9-10 coags have normalized, plts still low but recovering, most recent 100 #ID: Afebrile. S/p periop abx. No c/f infection. #Endo: No issues #Ppx: SCDs [ ] Lovenox after PCEA pull [ ] lovenox tail #Access - PIVs #OBGYN: [] , support post operative #Dispo: pending post-op advance/clinical improvement [ ] Dc summary updated [ ] F/u appts emailed [ ] lovenox rx Edited by: Tressa Terrazas MD at 05/09/2019 6932 Discussed with [facility] fellow, Dr. Groves, and [facility] Attending, Dr. Cole, who agrees with management and plan. Tressa Terrazas MD PGY3, [id number] Department of Obstetrics and Gynecology [facility] Associated attestation - Marce Cole MD - 05/09/2019 11:54 AM EST I saw and evaluated the patient. I agree with the history, findings, assessment and plan documentedby Tressa Terrazas MD. 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 Post-op course c/b HoTN with increase pressor requirement c/f intraabdominal bleeding requiring re- exploration and evacuation of hemoperitoneum. ?? A&Ox3. Afebrile. VSS. HR 80s-90s. Midline incision TECHNICIAN ANATOMIC PATHOLOGY, approximated. Blisters on neck from tegaderm, team aware. C/o pain, PO PRN oxycodone given x2 w/ +effect. Epidural capped previous shift. APS following. Some nausea, no episodes of vomiting. IV Zofran & Compazine given w/ +effect. OOB x1 assist. I/S encouraged. PIV x1. Tolerating small amts regular diet. +flatus, -BM. Hughes to remainin place x2 weeks. JEANETTE x1 RLQ. PM labs sent, K 3.3. PO repletion ordered. Patient has 7month son at home, breast pump at bedside, independent with pumping, currently pumping and dumping. Oscar involved in care. 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 Post-op course c/b HoTN with increase pressor requirement c/f intraabdominal bleeding requiring re- exploration and evacuation of hemoperitoneum. ?? A&Ox3. Afebrile. VSS. HR 80s-90s. Midline incision TECHNICIAN ANATOMIC PATHOLOGY, CDI. Blisters on neck from tegaderm, team aware. Denies pain. Epidural capped this afternoon. Patient taking only tylenol. States her pain is minimal. Hoping to avoid narcotics if possible. APS following. OOB x1 assist. I/S encouraged. PIVx1. Tolerating small amts regular diet. IV zofran given x1 for nausea this AM. +flatus, -BM. Hughes to remain in place x2 weeks. JEANETTE x1 RLQ. Patient has 7month son at home, breast pump at bedside, independent with pumping, currently pumping and dumping. Ordered for PM labs. Oscar involved in care. Plan ongoing. * Jeronimo Lee MD - 05/08/2019 2:25 PM EST [facility] Regional Anesthesia & Acute Periop Pain Service? Epidural/Peripheral Nerve Block Catheter Progress Note ? Patient: Marylou Hernandez Hospital day: 3 POD: Post Op Day #3 Procedure: Procedure(s): EXPLORATORY LAPAROTOMY & WASHOUT Subjective: Patient states her pain is well-controlled. Pain score 0 overnight. Has been advanced to a full diet. Patient has been pumping and dumping while taking gabapentin. Epidural/PNB Catheter Type: Thoracic epidural Infusion Settings: - PCEA: 2 cc bolus / 20 min lockout / 6 cc/hr basal rate / 12 cc hourly max Other Analgesics: PAIN ID Vitals and Labs (Last 0 days) No flowsheets data found Therapeutic Meds Medication Dose/Rate, Frequency, Route Last Action acetaminophen (TYLENOL) tablet 975 mg 975 mg, Q6H, Oral Given: 05/07 1106 oxyCODONE tablet 5-10 mg 5-10 mg, Q4H PRN, Oral Ordered PSYCH ID Vitals and Labs (Last 0 days) No flowsheets data found Therapeutic Meds Medication Dose/Rate, Frequency, Route Last Action buPROPion (WELLBUTRIN SR) SR 12 hr tablet 150 mg 150 mg, Daily, Oral Ordered Anticoagulants: ANTICOAGULATION ID Vitals and Labs (Last 0 days) No flowsheets data found Therpeutic Meds No matching active medications Drains (ETT, Hughes, Chest tube, & Nasogastric Tube): Active Lines/Drains/Airways/Wounds Peripheral Intravenous Line Peripheral IV Anterior;Right Forearm 1 day Drain Urinary Catheter Two-way 3 days Closed/Suction Drain 1 bard drain Bulb 19 Fr. Right;Lateral Abdomen 2 days Epidural Line Epidural Catheter 3 days Wound Wound Incision Medial;Lower;Other (comment) Abdomen 3 days Pain Score at Rest: 0/10 Pain Score with Movement: 0/10 Diet: Full diet NGT: NO Activity: Out of bed to chair Temp Range Last 24h/Current Temp: [36.6 ??C (97.9 ??F)-36.8 ??C (98.3 ??F)] 36.8 ??C (98.2 ??F) Catheter damon at Skin: 10cm Insertion Site Benign: YES Focused neurologic exam: Lower extremity sensation and strength intact Hughes in Place: YES Epidural/PNB Catheter Removed: NO - Tip intact: N/A - Reason for removal: N/A Labs: Lab Results Component Value Date WBC 2.80 (L) 05/08/2019 HGB 10.6 (L) 05/08/2019 HCT 30.3 (L) 05/08/2019 PLT 74 (L) 05/08/2019 Lab Results Component Value Date PT 14.4 05/07/2019 PT 15.5 (H) 05/06/2019 PT 16.6 (H) 05/06/2019 INR 1.1 05/07/2019 INR 1.2 (H) 05/06/2019 INR 1.4 (H) 05/06/2019 Lab Results Component Value Date PTT 29.4 05/07/2019 Assessment/Plan: 28 y.o. female now Post Op Day #3 s/p Procedure(s): EXPLORATORY LAPAROTOMY & WASHOUT. Ms. Hernandez is currently comfortable with her epidural without side effects. Epidural capped today with plan to remove tomorrow. Agree with stopping gabapentin per primary team. - Capped epidural, will plan to remove on 05/09 - Continue oxycodone 5-10mg PO q4hrs PRN - APS will continue to follow. Jeronimo Lee MD Regional Anesthesia and Acute Perioperative Pain Service? Pager #[phone]-PAIN? Associated attestation - Christoph Laurent MD - 05/09/2019 10:51 AM EST Patient seen and examined and treatment plan discussed in detail. All questions answered. Christoph Laurent M.D. Acute Pain Attending * Kirstin Finn MD - 05/08/2019 6:29 AM EST [facility] Progress Note 05/08/2019 7:42 AM O/E: AF, HDS. Hughes remains in place with ~100cc/hr output last 24 hrs. Net neg 1L last 24 hrs after 10 IV Lasix in the AM. JEANETTE drain with 350cc output last 24 hrs. A line and introducer removed. Transferred out of the SICU to the floor. Continues to pump. Pain well controlled with PCEA. Intermittent nausea controlled w/Zofran PRN. Written for regular diet, tolerating small amounts of clear liquiddiet at this time. H/H stable 28/9.6 on PM labs. Plts stable at 75. Edited by: Tressa Terrazas MD at 05/08/2019 0606 S: Feeling well. Had nausea but it resolved. Has been out of bed. Passing gas. Tolerated little food yesterday. O: Temp: [36.6 ??C (97.9 ??F)-37.5 ??C (99.5 ??F)] 36.7 ??C (98 ??F) (05/08 719) HR: [90-108] 92 (05/08 719) BP: (112-134)/(65-85) 112/65 (05/08 719) RR: Respiratory Rate: [16-25] 16 O2Sat: [93 %-98 %] 97 % (05/08 719) I/O (24hr): Intake/Output Summary (Last 24 hours) at 05/08/2019 0742 Last data filed at 05/08/2019 0458 Gross per 24 hour Intake 912.35 ml Output 2433 ml Net -1520.65 ml PEx: Gen: Fatigued appearing, R eye deviant, vesicular rash on neck from tape CV/Pulm: breathing comfortably on RA, extremities warm and well perfused Abd: moderately distended, incision c/d/i with clair, JEANETTE drain w/ sang > serous output Ext: wwp, no edema CBC Recent Labs 05/05/19 1551 05/07/19 1639 05/07/19 2108 05/08/19 0511 WBC 5.46 < > 3.67* 3.57* 2.80* HGB 7.2* < > 9.8* 9.6* 10.6* HCT 21.7* < > 28.5* 28.1* 30.3* PLT 139* < > 82* 75* 74* NEUT 80.7* -- -- -- -- < > = values in this interval not displayed. CHEM Recent Labs 05/06/19 0657 05/07/19 0245 05/07/19 0943 05/07/19 1429 05/07/19 1639 05/07/19 2108 NA 139 -- 140 -- -- -- 140 K 4.0 -- 3.3* 3.6 4.0 -- 3.8 CL 107 -- 104 -- -- -- 101 CO2 22* -- 24 -- -- -- 25 BUN 9 -- 6* -- -- -- 5* CRE 0.70 -- 0.63 -- -- -- 0.55* GLU 146* -- 87 -- -- -- 87 CA 10.7* -- 7.7* -- -- -- 8.5 MG 1.7 < > 1.8 1.8 -- 2.3 2.1 PHOS -- -- 1.3* -- -- 2.7 -- < > = values in this interval not displayed. 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 Post-op course c/b HoTN with increase pressor requirement c/f intraabdominal bleeding requiringre- exploration and evacuation of hemoperitoneum on POD#1. 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 Followed by so delay in treatment/followup; Now s/p radical hysterectomy, bilateral salpingectomy, pelvic lymph node dissection - Imaging preop including: MRI 04/29- no e/o malignancy. PET CT- no FDG avid mets to neck, chest abdomen or pelvis. Primary tumor not clearly visualized. No abdominopelvic mets identified. 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 Pressors continued in ICU, now weaned off. [ ] CTM BPs- nml range #Pulm: Intubated POD0-1, Extubated 05/06-> RA #GI: NPO-> regular diet 05/07 -mIVF DC'd 05/08AM #: Hughes in place plan for 2 weeks. Plan for discharge with hughes. [ ] Strict Is/Os- net positive 7.5 L since admission, given 10 IV lasix x1 2 AM-> net neg 1L [ ] consider repeat lasix dose 05/08 DO NOT REMOVE HUGHES #Heme: EBL 1000 mL. Baseline Hct 37.5. Re-op for hemoperitoneum POD1. Total received 9 u pRBC, 4x4 FFP, plts [ ] Trend CBC, INR. Hgb now stable at 9-10 coags have normalized, plts still low but recovering, most recent 82 #ID: Afebrile. S/p periop abx. No c/f infection. #Endo: No issues #Ppx: SCDs [ ] Lovenox when HDS+ plts recover [ ] lovenox tail #Access - PIVs #OBGYN: [] , support post operative #Dispo: pending post-op advance/clinical improvement [ ] Dc summary updated [ ] F/u appts emailed [ ] lovenox rx Edited by: Kirstin Finn MD at 05/08/2019 0742 Discussed with [facility] fellow, Dr. Groves, and [facility] Attending, Dr. Cole, who agrees with management and plan. Kirstin Finn MD, MPH [employer] PGY-2 P. [phone] Associated attestation - Marce Cloe MD - 05/08/2019 7:48 AM EST I saw and evaluated the patient. I agree with the history, findings, assessment and plan documentedby Kirstin Finn MD. 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 Post-op course c/b HoTN with increase pressor requirement c/f intraabdominal bleeding requiring re- exploration and evacuation of hemoperitoneum. ?? A&Ox3. Afebrile. VSS. HR 80s-90s. Midline incision w/ primary dressing, CDI. Denies pain. Epidural running dilaudid 10mcg/bupi @4mL/hr; 2mL bolus/20 min lockout/ 10mL hourly limit. Tele/O2 monitoring. APS following. OOB x1 assist. I/S encouraged. PIV x1. Tolerating small amts clear liquid diet.IV compazine PRN given x1 for nausea. Per report, x1 episode of emesis 50cc last evening, PRN IV Zofran given in previous shift. -flatus. Hughes to remain in place x2 weeks. JEANETTE x1 RLQ. Patient has 7month son at home, breast pump at bedside, independent with pumping, currently pumping and dumping. Oscar involved in care. Plan ongoing. 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 Post-op course c/b HoTN with increase pressor requirement c/f intraabdominal bleeding requiring re- exploration and evacuation of hemoperitoneum. ?? A&Ox3. Afebrile. VSS. HR 80s-90s. Midline incision w/ primary dressing, CDI. Denies pain. Epidural running dilaudid/bupi 4mL/hr; 2mL bolus/20 min lockout/ 10mL an hour. Tele/O2 monitoring. APS following. OOB x1 assist. I/S encouraged. PIV x2. Tolerating small amts clear liquid diet. Zofran given for nausea. One episode of emesis this shift. +BS, +flatus per patient report. Hughes to remain in place x2 weeks. JEANETTE x1 RLQ. Patient has 7month son at home, pumping q4h. Independent with pumping, has supplies at bedside. Oscar involved in care. Plan ongoing. 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 Post-op course c/b HoTN with increase pressor requirement c/f intraabdominal bleeding requiring re- exploration and evacuation of hemoperitoneum on POD#1. Report received from Keshia GILLIAM. Patient arrived to [facility] at 1800. MD Terrazas notified. A+Ox3. Afebrile. VSS. HR 80s-90s. Midline incision w/ primary dressing, CDI. No c/o pain. Epidural running dilaudid/bupi 4mL/hr; 2mL bolus/20 min lockout/ 10mL an hour. Tele/O2 monitoring. APS following. OOB x1 assist.I/S encouraged. PIV x2. Tolerating small amts clear liquid diet. C/o intermittent nausea. Zofran giv en prior to transfer to unit w/ effect. +BS, +flatus per patient report. Hughes intact draining CYU.Plan for hughes to remain in place x2 weeks. JEANETTE x1 RLQ. Patient has 7month son at home. Has been pumping q4h. Last pumped at 4pm. Independent with pumping, has supplies at bedside. Oscar involved in care. Plan ongoing. * Geeta Sarabia RN - 05/07/2019 5:28 PM EST Nursing Progress Note ?? Events: Plan for transfer to [place] [address]. Report called to TAWANA Garcia ?? Neuro: A&Ox3. SILVER. PERRL. Pain 3-5/10 on bupi/dilaudid Epidural at 4mL/hr, 2mL bolus/20min lockout/ 10mL 1hr dose limit. Scheduled Tylenol, gabapentin. Followed by APS. OOB w/ 1 assist, ambulatedhall, tolerated well Resp; R/A. Lungs clear. I/S encouraged. CV: NSR-ST, 80-110. BP stable 12-130's/80's. Hgb stable. Mag, potassium repleted. Recheck potassiumsent to lab. Courtney, central line removed. GI: Tolerating clear liquid diet. Nausea w/ vomiting x1 (small, clear/undigested food). Declined antiemetic. Abd soft, nondistended. + bowel sounds. No flatus. : Hughes, 50-75mL/hr CYU, 10mg IV lasix x 1. Per lift slab operator onc, hughes to stay in. SK: JEANETTE w/ 120mL serosang output this shift. Midline incision w/ DSD, C/D/I. Small blistered area (3-5, 0.5-1cm blisters) & redness at edges of previous central line dsg site. Other areas with tegaderm without reaction. ID: Afebrile. SOC: Osacr at bedside throughout day. Aware of plans for transfer Breast pumping: Q4h, last pump 1600, dumped. 45 right breast, 40 left breast ?? * Tressa Durand MD - 05/07/2019 12:42 PM EST [facility] Regional Anesthesia & Acute Periop Pain Service? Epidural/Peripheral Nerve Block Catheter Progress Note ? Patient: Marylou Hernandez Hospital day: 2 POD: Post Op Day #2 Procedure: Procedure(s): EXPLORATORY LAPAROTOMY & WASHOUT Subjective: Marylou is now extubated and sitting up in the chair. She was napping when we walked into the room but awakened easily to our voices. Her pain is well controlled. Epidural/PNB Catheter Type: Thoracic epidural Infusion Settings: ??? HYDROmorphone (PF) 10 mcg/mL bupivacaine 1 mg/mL (0.1%) 6 mL/hr (05/06/19 0906) - PCEA: 2 cc bolus / 20 min lockout / 6 cc/hr basal rate / 12 cc hourly max Other Analgesics: PAIN ID Vitals and Labs (Last 0 days) No flowsheets data found Therapeutic Meds Medication Dose/Rate, Frequency, Route Last Action acetaminophen (TYLENOL) tablet 975 mg 975 mg, Q6H, Oral Given: 05/07 1106 HYDROmorphone (PF) 10 mcg/mL bupivacaine 1 mg/mL (0.1%) in NS (100 mL) PCEA (Premix CMPD) No Dose/Rate, Continuous, Epid New Ba/15 0417 oxyCODONE tablet 5-10 mg 5-10 mg, Q4H PRN, Oral Ordered PSYCH ID Vitals and Labs (Last 0 days) No flowsheets data found Therapeutic Meds Medication Dose/Rate, Frequency, Route Last Action buPROPion (WELLBUTRIN SR) SR 12 hr tablet 150 mg 150 mg, Daily, Oral Ordered gabapentin (NEURONTIN) capsule 100 mg 100 mg, TID, Oral Given: 05/07 918 haloperidol lactate (HALDOL) injection 1 mg 1 mg, Q4H PRN, IV Given: 05/06 0300 Anticoagulants: ANTICOAGULATION ID Vitals and Labs (Last 0 days) No flowsheets data found Therpeutic Meds No matching active medications Drains (ETT, Hughes, Chest tube, & Nasogastric Tube): Active Lines/Drains/Airways/Wounds Peripheral Intravenous Line Peripheral IV Anterior;Right Forearm less than 1 day Drain Urinary Catheter Two-way 2 days Closed/Suction Drain 1 bard drain Bulb 19 Fr. Right;Lateral Abdomen 1 day Epidural Line Epidural Catheter 2 days Wound Wound Incision Medial;Lower;Other (comment) Abdomen 2 days Pain Score at Rest: 2/10 Pain Score with Movement: moderate Diet: NPO NGT: NO Activity: Not yet out of bed Temp Range Last 24h/Current Temp: [37.1 ??C (98.7 ??F)-38.2 ??C (100.8 ??F)] 37.1 ??C (98.7 ??F) Catheter damon at Skin: No migration Insertion Site Benign: YES Focused neurologic exam: Lower extremity sensation and strength intact Hughes in Place: NO Epidural/PNB Catheter Removed: NO - Tip intact: N/A - Reason for removal: N/A Labs: Lab Results Component Value Date WBC 4.04 (L) 05/07/2019 HGB 9.6 (L) 05/07/2019 HCT 27.9 (L) 05/07/2019 PLT 71 (L) 05/07/2019 Lab Results Component Value Date PT 14.4 05/07/2019 PT 15.5 (H) 05/06/2019 PT 16.6 (H) 05/06/2019 INR 1.1 05/07/2019 INR 1.2 (H) 05/06/2019 INR 1.4 (H) 05/06/2019 Lab Results Component Value Date PTT 29.4 05/07/2019 Assessment/Plan: 28 y.o. female now Post Op Day #2 s/p Procedure(s): EXPLORATORY LAPAROTOMY & WASHOUT. Ms. Hernandez is currently comfortable with her epidural without side effects. - Continue catheter at current settings. - APS will continue to follow. Tressa Durand MD Regional Anesthesia and Acute Perioperative Pain Service? Pager #[phone]-PAIN? Associated attestation - Christoph Laurent MD - 05/07/2019 1:15 PM EST Patient seen and examined and treatment plan discussed in detail. All questions answered. Christoph Laurent M.D. Acute Pain Attending * Robina Barlow CNP - 05/07/2019 11:32 AM EST ICU Daily Progress Note [facility] NAME: ?Marylou Hernandez Date: 05/07/2019 Time: 11:32 AM Hospital Day: 2 Post Op Day #2 ICU Attending: Jeff Maddox MD Surgical Attending: Marce Cole MD Service: Gynecologic Oncology Procedure: Surgical/Procedural Cases on this Admission Case IDs Date Procedure Surgeon Location Status [id number] 05/05/19 EXPLORATORY LAPAROTOMY, TOTAL ABDOMINAL RADICAL HYSTERECTOMY, BILATERAL SALPINGECTOMY, UPPER VAGINECTOMY Marce Cole MD [facility] OR [facility] [id number] 05/06/19 EXPLORATORY LAPAROTOMY & WASHOUT Marec Cole MD [facility] OR [facility] Problem List: Active Hospital Problems Diagnosis Date Noted ??? Post-operative state 05/05/2019 Subjective 24 hour events: 05/06 days: -taken to OR overnight for bleeding--back 6:45am -S/p exp lap. Evacuated 2L blood, no obvious bleeding vessels seen, several suspicious vessels sutured and hemostatic agents (surgicel) used, no further notable bleeding, abd was closed. Intra op: 4 pRBC, 4 FFP, 2 platelets, 250 albumin, 2L crystalloid, uop 300cc, total EBL estimated 2.5L. -off pressors post op, CBC q4h = stable 10.0 most recent 3pm, will liberalize q12h -she is and pump and supplies are at bedside O/N: - K and phos replaced Edited by: Ana Lamas CNP at 05/07/2019 0416 Exam Vitals: 37.5 ??C (99.5 ??F) P (!) 101 BP 113/76 RR 23 SpO2 97 % 10 FiO2 40 % 59 kg (130 lb) Temperature: [37.1 ??C (98.8 ??F)-38.2 ??C (100.8 ??F)] 37.5 ??C (99.5 ??F) Heart Rate: [89-128] 101 Respiratory Rate: [20-24] 23 BP: (113-122)/(72-78) 113/76 Arterial Line BP: (97-124)/(52-79) 124/79 FiO2 (%): [30 %-40 %] 40 % Vent Settings FiO2 (%): [30 %-40 %] 40 % S RR: [0] 0 PEEP/CPAP (cm H2O): [0 cm H20] 0 cm H20 Airway Mean press: [1 cmH2O] 1 cmH2O Fluid Balance I/O 05/06 - 05/069 05/07 - 05/07 2359 P.O. 240 I.V. (mL/kg) 5527.9 (93.7) 826 (14) Blood 5350 IV Piggyback 2300 190 Total Intake(mL/kg) 98942.9 (223.4) 1256 (21.3) Urine (mL/kg/hr) 1987 (1.4) 1570 (2.3) Emesis/NG output 30 Drains 830 110 Other 340 20 Blood 2500 Total Output 5657 1730 Net +7520.9 -474 Emesis Occurrence 1 x Diet Diet Clear liquid; Thin Tubes, Lines, and Drains Patient Lines/Drains/Airways Status Active Lines, Drains and Airways Name: Placement date: Placement time: Site: Days: Closed/Suction Drain 1 bard drain Bulb 19 Fr. Right;Lateral Abdomen 05/06/19 0534 Abdomen 1 Urinary Catheter Two-way 05/05/19 -- Two-way 2 Epidural Catheter 05/05/19 0942 Thoracic 2 Bedside Exam Gen: NAD, pleasant, healthy appearing Neuro: A&Ox3, MOLLY, no focal deficits HEENT: normocephalic, anicteric, moist mucous membranes Card: RRR, no murmurs, no JVD Pulm: CTA bilat, breathing nonlabored GI: abd soft, tender, nondistended, (-) flatus, denies nausea, midline abd dressing C/D/I, RLQ JEANETTE with serosang drainage : hughes with clear yellow urine Ext: warm, well perfused, trace pedal edema, 5/5 strength all ext Data/Results Labs: Recent Labs 05/05/19195605/05/19 2030 05/06/19 0001 05/06/193 05/06/19 0657 05/07/19 0245 05/07/19 0943 NA 142 144 142 142 139 -- 140 -- K 4.9 4.4 4.2 4.6 4.0 -- 3.3* 3.6 CL 107 106 108 113* 107 -- 104 -- CO2 21* 22* 21* 19* 22* -- 24 -- BUN 8 8 10 10 9 -- 6* -- CRE 0.63 0.63 0.68 0.54* 0.70 -- 0.63 -- GLU 105 123* 157* 229* 146* -- 87 -- CA 7.5* 8.2* 8.8 6.9* 10.7* -- 7.7* -- MG 1.3* 1.5* 2.5* -- 1.7 < > 1.8 1.8 PHOS -- -- -- -- -- -- 1.3* -- < > = values in this interval not displayed. Recent Labs 05/06/191005/06/1943205/06/1951805/06/19 0536 05/06/19 1237 05/07/19 0432 PT 18.1* 23.8* 17.7* 16.6* 15.5* 14.4 PTT 27.7 40.2* 36.2* 35.3 29.6 29.4 INR 1.5* 2.1* 1.5* 1.4* 1.2* 1.1 Recent Labs 05/06/19 00105/06/19 0433 05/06/19 0519 05/06/19 0936 05/06/19 1143 05/06/19 1551 APH -- -- 7.23* 7.39 -- 7.59* 7.38 -- APCO2 -- < > 47* 35 -- 25* 42 -- APO2 -- < > 515* 192* -- 190* 115* -- VPH 7.32 -- -- -- -- -- -- -- VPCO2 43 -- -- -- -- -- -- -- VPO2 73* -- -- -- -- -- -- -- LACT -- < > -- -- < > 2.5* -- 0.7 < > = values in this interval not displayed. No results for input(s): TROPT, BNP, NTBNP in the last 72 hours. Cultures: Microbiology Results (Last 10 days) No results found for the last 240 hours. Radiology: XR Chest Portable Final Result Endotracheal tube that terminates 7 mm from [...] report originally created by Dr. Kong Zuleta. XR Abdomen Final Result There is an enteric tube terminating below the diaphragm, with distal tip in the distal stomach. There is a partially imaged epidural catheter. Nonobstructive bowel gas pattern. ATTESTATION: I, Dr. Amie Flynn as teaching physician, have reviewed the images for this case and if necessary edited the report originally created by Dr. Barak Raya. Medications Medications Scheduled Medication Dose/Rate, Frequency, Route Last Action acetaminophen (TYLENOL) tablet 975 mg 975 mg, Q6H, Oral Given: 05/07 1105 buPROPion (WELLBUTRIN SR) SR 12 hr tablet 150 mg 150 mg, Daily, Oral Ordered gabapentin (NEURONTIN) capsule 100 mg 100 mg, TID, Oral Given: 05/07 918 polyethylene glycol packet 17 g, Daily, Oral Given: 05/07 918 senna (SENOKOT) tablet 1 tablet 1 tablet, BID, Oral Given: 05/07 918 sennosides 8.8 mg/5 mL syrup 8.8 mg No Dose/Rate, BID, Oral See Alternative: 05/07 918 Continuous Medication Dose/Rate, Frequency, Route Last Action HYDROmorphone (PF) 10 mcg/mL bupivacaine 1 mg/mL (0.1%) in NS (100 mL) PCEA (Premix CMPD) No Dose/Rate, Continuous, Epid New Ba05/07 416 PRN Medication Dose/Rate, Frequency, Route Last Action bisacodyl (DULCOLAX) suppository 10 mg 10 mg, Daily PRN, Rect Ordered haloperidol lactate (HALDOL) injection 1 mg 1 mg, Q4H PRN, IV Given: 05/06 299 magnesium sulfate 2 gram/50 mL (4%) in Sterile Water IVPB 2-4 g 2 g, PRN, IV New Ba05/07 416 naloxone (NARCAN) injection dilution syringe 0.04-0.08 mg 0.04-0.08 mg, PRN, IV Ordered ondansetron (PF) (ZOFRAN) injection 2 mg 2 mg, Q4H PRN, IV Given: 05/07 239 ondansetron (ZOFRAN-ODT) disintegrating tablet 4 mg No Dose/Rate, Q6H PRN, Oral See Alternative: 05/07 239 oxyCODONE tablet 5-10 mg 5-10 mg, Q4H PRN, Oral Ordered potassium chloride (KLOR-CON) packet 20-80 mEq 20-80 mEq, PRN, Oral Ordered potassium chloride in NS syringe (Central Line) 20 mEq 20 mEq, Q1H PRN, IV Ordered potassium chloride in NS syringe (Central Line) 20 mEq 20 mEq, Q1H PRN, IV New Ba05/07 522 prochlorperazine edisylate (COMPAZINE) injection 5 mg 5 mg, Q4H PRN, IV Given: 05/06 2214 Assessment/Plan Marylou Hernandez is a 28 y.o. 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 Postoperative course c/b hypotension with increasing pressor requirement, transferred to [place] [address] ICU for further management - then eventually w/ hgb drop, +FAST c/f significant hemoperitoneum; and clinical c/f intraabdominal bleed, s/p re- exploration POD#1. * Post-operative state 28 yr female 05/05, post [...] to remain in place through discharge per [facility] (2 weeks) - LR at 75cc/hr -> [...] introducer - remove - Hughes - JEANETTE Code Status: Full Code (Presumed) Robina Barlow CNP [place] [address] ICU * Tressa Terrazas MD - 05/07/2019 11:27 AM EST [facility] Progress Note 05/07/2019 11:27 AM O/E: Hrs 100s. BP wnl. . PM hct 27.9 from 29. AM hct stable again at 27.9. UOP 60cc/hrUOP 60cc/hr. JEANETTE drain with 60 since midnight and 70cc on prior shift. Net positive 7.5 L in last 24hours S: Pt feeling better this morning. Understands plan for likely transfer out of the SICU. O: Temp: [37.1 ??C (98.8 ??F)-38.2 ??C (100.8 ??F)] 37.5 ??C (99.5 ??F) (05/07 0751) HR: [89-128] 101 (05/07 1100) BP: (113-122)/(72-78) 113/76 (05/07 1100) RR: Respiratory Rate: [20-24] 23 O2Sat: [92 %-100 %] 97 % (05/07 1100) I/O (24hr): Intake/Output Summary (Last 24 hours) at 05/07/2019 1127 Last data filed at 05/07/2019 1116 Gross per 24 hour Intake 2582.31 ml Output 3300 ml Net -717.69 ml PEx: Gen: Fatigued appearing, R eye deviant, otherwise well CV/Pulm: breathing comfortably on RA, extremities warm and well perfused Abd: moderately distended, mod saturation on lower aspect of bandage. JEANETTE drain w/ sang > serous output Ext: wwp, no edema CBC Recent Labs 05/05/19 1551 05/06/19 1551 05/06/19 2236 05/07/19 0245 WBC 5.46 < > 3.77* 4.37* 4.04* HGB 7.2* < > 10.0* 9.7* 9.6* HCT 21.7* < > 29.2* 27.9* 27.9* PLT 139* < > 77* 70* 71* NEUT 80.7* -- -- -- -- < > = values in this interval not displayed. 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 Post-op course c/b HoTN with increase pressor requirement c/f intraabdominal bleeding requiringre- exploration and evacuation of hemoperitoneum on POD#1. 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 Followed by so delay in treatment/followup; Now s/p radical hysterectomy, bilateral salpingectomy, pelvic lymph node dissection - Imaging preop including: MRI 04/29- no e/o malignancy. PET CT- no FDG avid mets to neck, chest abdomen or pelvis. Primary tumor not clearly visualized. No abdominopelvic mets identified. 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 Pressors continued in ICU, now weaned off. [ ] CTM BPs- nml range #Pulm: Intubated POD0-1, Extubated 05/06-> RA #GI: NPO-> regular diet 05/07 -Okay to DC mIVF once tolerating clears/diet #: Hughes in place plan for 2 weeks. Plan for discharge with hughes. [ ] Strict Is/Os- net positive 7.5 L since admission, given 10 IV lasix x1 2/15 AM [ ] Monitor UOP and re-dose PRN for goal net neg 1-2L/day DO NOT REMOVE HUGHES #Heme: EBL 1000 mL. Baseline Hct 37.5. Hgb 12.8 (pre-op) -> 7.2 (3:50PM) -> 8.0 (5:45PM)-> 5.4 (8PM) -> 6.0 (8:30PM).Received 2U pRBC and 750 albumin. Total received 9 u pRBC, 4x4 FFP, plts [ ] Trend CBC, INR. Now stable at ~27-29, coags have normalized #ID: Afebrile. S/p periop abx. No c/f infection. #Endo: No issues #Ppx: SCDs [ ] Lovenox when HDS and PCEA out [ ] lovenox tail #Access - Okay to remove a line+ introducer - PIVs #OBGYN: [] , support post operative #Dispo: pending post-op advance/clinical improvement [ ] Dc summary updated [ ] F/u appts emailed [ ] lovenox rx Discussed with [facility] fellow, Dr. Groves, and [facility] Attending, Dr. Cole, who agrees with management and plan. Tressa Terrazas MD PGY3, [id number] Department of Obstetrics and Gynecology [facility] Associated attestation - Marce Cole MD - 05/08/2019 7:17 AM EST I saw and evaluated the patient. I agree with the history, findings, assessment and plan documentedby Tressa Terrazas MD. * Satya Maddox MD - 05/07/2019 10:41 AM EST Critical Care Attending Progress Note Please see SICU team note for more details. Assessment: Briefly, 28yF with PMH of Chiari malformation s/p cranial decompression/laminectomy. Now s/p radical HOWARD, BSO and pelvic LND for endocervical carcinoma. Imeadiate post-op course complicated by intra-abdominal hemorrohage requiring return to OR from PACU and RBC transfusion. Now stable off pressors. Issues to emphasize: - Post-operative pain: continue epidural and multimodal pain control. - Acute blood loss anemia. Continue to monitor Hgb and transfuse as needed. D/c A-line. D/c CVL. - Diet: advance to clears as tolerated - Volume overload: Gentle diuresis now she is stable after resuscitation for hemorrhage. I saw and evaluated the patient during rounds and throughout the day as needed, reviewed the available flowsheet vital signs, radiographic and laboratory data, and reviewed my findings and plan with the SICU team. Time I spent as a minimum of with this patient, and in family meetings for medical decision making,not including additional time for separate procedures: 26 min * Christi Sawyer RN - 05/06/2019 9:52 PM EST Nursing Progress Note NEURO: Alert and oriented, drowsy. Moves all extremities to command with equal strength. Able to bend at knee, full sensation throughout, no complains of pruritis, epidural site apears benign. Pain well managed per pt. Good sleep hygiene. CV: Sinus tachy, further increased with nausea and improved with zofran. CBC checked upon request by Fellow, then liberalized to daily (AM). No longer trending lactate. Electrolytes repleted, recheckpending. JEANETTE with moderate amount of serosang output, leaking at site. RESP: Room air. Participating in pulmonary toileting with reminders. GI/: Refusing PO meds d/t nausea, zofran given with improvement. Hughes, KAE. No bowel movement. ID: On/off febrile, team aware. SKIN: Wound care performed per orders and as needed. Leaking at JEANETTE site, dressing changed. Left forearm pink compared to right, equally temp bilaterally, only painful at hand IV sites bilaterally, particularly when in use, IVs D/Cd. Left hand IV appeared to have white opaque cloudy substance instilled. IVs bleeding at the site upon removal requiring pressure held, platelets low, PT-INR elevated. SOCIAL: at bedside. Updated by ICU team. * Continuing to utilize breast pump, attempted to maintained q4h but often postponed by pt d/t nausea or drowsiness, output improving, L breast output > R. Milk labeled and placed in bedside refrigerator. * Geeta Sarabia RN - 05/06/2019 7:35 PM EST Nursing Progress Note Events: Extubated @ 1345 to humidified face mask, weaned to R/A. Neuro: A&Ox3. SILVER. PERRL. Pain 0-2/10 on bupi/dilaudid Epidural. Increased by ICU fellow to 6mL/hr immediately postop, decreased post-extubation to mL/hr. Followed by APS. Resp; R/A. Lungs clear. I/S encouraged CV: ST, 100-110's, 120 with activity. BP 110-120/60's via left radial courtney. Hgb stable, trending Q12h. Lactate stable, trending Q6h. Mag repleted 2gm, GI: NPO. Abd soft, nondistended. + bowel sounds. OGT removed w/ extubation. C/o mild nausea x1, declined medication : Hughes, 30-60mL/hr CYU SK: JEANETTE w/ 580mL output bloody to serosang. Output slowing, ~100mL serosang q3-4 Hours. Midline incision well approximated w/ clair. DSD changed by lift slab operator onc team in am. ID: Tmax 99.4 F SOC: , mother at bedside throughout day. Updated by team Breast pumping: Q4h, last pump 2pm, no letdown at 6pm, will attempt later. * Julienne Burrell, INTERNAL REVENUE SERVICE AGENT - 05/06/2019 3:00 PM EST Pt started shift intubated on VC. Able to transition to PS later in shift. Passed 0/0 SBT. Extubated per order. Positive cuff leak heard. No evidence of inspiratory stridor. Bilateral BS clear. Placed on cool aerosol. * Bouchra Swartz CNP - 05/06/2019 2:01 PM EST ICU Daily Progress Note [facility] ICU NAME: Clarence Hernandez Date: 05/06/2019 Time: 2:01 PM Hospital Day: 1 Post Op Day #1 ICU Attending: Marin Mireles MD Surgical Attending: Marce Cole MD Service: Gynecologic Oncology Procedure: Surgical/Procedural Cases on this Admission Case IDs Date Procedure Surgeon Location Status [id number] 05/05/19 EXPLORATORY LAPAROTOMY, TOTAL ABDOMINAL RADICAL HYSTERECTOMY, BILATERAL SALPINGECTOMY, UPPER VAGINECTOMY Marce Cole MD [facility] OR Comp [id number] 05/06/19 EXPLORATORY LAPAROTOMY & WASHOUT Marce Cole MD [facility] OR [facility] Problem List: Active Hospital Problems Diagnosis Date Noted ??? Post-operative state 05/05/2019 Subjective 24 hour events: Edited by: Ana Lamas CNP at 05/06/2019 0345 Exam Vitals: 37.1 ??C (98.8 ??F) P (!) 118 BP (!) 177/96 RR 20 SpO2 100 % 10 FiO2 40 % 59 kg (130 lb) Temperature: [35.9 ??C (96.7 ??F)-37.7 ??C (99.8 ??F)] 37.1 ??C (98.8 ??F) Heart Rate: [61-132] 118 Respiratory Rate: [5-31] 20 BP: (67-177)/(39-96) 177/96 Arterial Line BP: (61-185)/(30-100) 107/61 FiO2 (%): [30 %-40 %] 40 % Vent Settings Vent Mode: SBT FiO2 (%): [30 %-40 %] 40 % S RR: [0-24] 0 S VT: [300 mL] 300 mL PEEP/CPAP (cm H2O): [0 cm H20-5 cm H20] 0 cm H20 Airway Mean press: [1 quH1N-06 cmH2O] 1 cmH2O Fluid Balance I/O 05/05 - 05/059 05/06 - 05/06 2359 I.V. (mL/kg) 2383.4 (40.4) 4564.8 (77.4) Blood 2740 5350 IV Piggyback 150 2200 Total Intake(mL/kg) 5273.4 (89.4) 26918.8 (205.3) Urine (mL/kg/hr) 790 1387 (1.7) Drains 670 Other 300 Blood 1000 2500 Total Output 1790 4857 Net +3483.4 +7257.8 Diet Diet NPO Tubes, Lines, and Drains Patient Lines/Drains/Airways Status Active Lines, Drains and Airways Name: Placement date: Placement time: Site: Days: Double Lumen Venous Sheath/Introducer Right 05/06/19 0441 -- less than 1 Closed/Suction Drain 1 19 HEAVEN DRAIN Bulb 19 Fr. Abdomen 05/06/19 -- Abdomen less than 1 Closed/Suction Drain 1 bard drain Bulb 19 Fr. Right;Lateral Abdomen 05/06/19 0534 Abdomen less than1 Urinary Catheter Two-way 05/05/19 -- Two-way 1 ETT 05/06/19 0422 -- less than 1 Epidural Catheter 05/05/19 0942 Thoracic 1 Arterial Line Left Radial 05/06/19 0200 Radial less than 1 Bedside Exam Gen: A&O x3, lying in bed, NAD Neuro: prop off, neuro exam intact, extubated, AAO x3 CV: RRR Resp: passed SBP, extubated, able to phonate, bs CTAB, easy respirations Abd: soft, sl round, dsg c/d/i, 1 JEANETTE to bulb suction with output becoming more serosangious Ext: WWP Data/Results Labs: Recent Labs 05/05/19174505/05/19195605/05/19 2030 05/06/19 0001 05/06/19 0433 05/06/19 0657 NA 144 142 144 142 142 139 K 4.0 4.9 4.4 4.2 4.6 4.0 CL 107 107 106 108 113* 107 CO2 23 21* 22* 21* 19* 22* BUN 8 8 8 10 10 9 CRE 0.72 0.63 0.63 0.68 0.54* 0.70 GLU 182* 105 123* 157* 229* 146* CA 8.1* 7.5* 8.2* 8.8 6.9* 10.7* MG 1.5* 1.3* 1.5* 2.5* -- 1.7 Recent Labs 05/05/19174505/06/19 0011 05/06/19 0433 05/06/19 0519 05/06/19 0536 05/06/19 1237 PT 16.3* 18.1* 23.8* 17.7* 16.6* 15.5* PTT 22.9 27.7 40.2* 36.2* 35.3 29.6 INR 1.3* 1.5* 2.1* 1.5* 1.4* 1.2* Recent Labs 05/06/19 0011 05/06/19 0433 05/06/19 0519 05/06/19 0936 05/06/19 1143 APH -- -- 7.23* 7.39 -- 7.59* 7.38 APCO2 -- < > 47* 35 -- 25* 42 APO2 -- < > 515* 192* -- 190* 115* VPH 7.32 -- -- -- -- -- -- VPCO2 43 -- -- -- -- -- -- VPO2 73* -- -- -- -- -- -- LACT -- < > -- -- < > 2.5* -- < > = values in this interval not displayed. No results for input(s): TROPT, BNP, NTBNP in the last 72 hours. Cultures: Microbiology Results (Last 10 days) No results found for the last 240 hours. Radiology: XR Chest Portable Final Result Endotracheal tube that terminates 7 mm from [...] report originally created by Dr. Kong Zuleta. XR Abdomen Final Result There is an enteric tube terminating below the diaphragm, with distal tip in the distal stomach. There is a partially imaged epidural catheter. Nonobstructive bowel gas pattern. ATTESTATION: I, Dr. Amie Flynn as teaching physician, have reviewed the images for this case and if necessary edited the report originally created by Dr. Barak Raya. Medications Medications Scheduled Medication Dose/Rate, Frequency, Route Last Action acetaminophen (TYLENOL) tablet 975 mg 975 mg, Q6H, Oral Ordered buPROPion (WELLBUTRIN SR) SR 12 hr tablet 150 mg 150 mg, Daily, Oral Ordered gabapentin (NEURONTIN) capsule 100 mg 100 mg, TID, Oral Ordered pantoprazole (PROTONIX) 40 mg in sodium chloride 0.9% 100 mL IVPB-MBP 40 mg, Daily, IV New Ba/14 1010 polyethylene glycol packet 17 g, Daily, Oral Ordered senna (SENOKOT) tablet 1 tablet No Dose/Rate, BID, Oral See Alternative: 05/06 937 sennosides 8.8 mg/5 mL syrup 8.8 mg 8.8 mg, BID, Oral Ordered Continuous Medication Dose/Rate, Frequency, Route Last Action HYDROmorphone (PF) 10 mcg/mL bupivacaine 1 mg/mL (0.1%) in NS (100 mL) PCEA (Premix CMPD) 6 mL/hr, Continuous, Epid New Ba05/06 905 lactated Ringers infusion 75 mL/hr, Continuous, IV Rate/Dose Verify: 05/06 1359 PRN Medication Dose/Rate, Frequency, Route Last Action bisacodyl (DULCOLAX) suppository 10 mg 10 mg, Daily PRN, Rect Ordered haloperidol lactate (HALDOL) injection 1 mg 1 mg, Q4H PRN, IV Given: 05/06 030 naloxone (NARCAN) injection dilution syringe 0.04-0.08 mg 0.04-0.08 mg, PRN, IV Ordered ondansetron (PF) (ZOFRAN) injection 2 mg 2 mg, Q4H PRN, IV Given: 05/06 113 ondansetron (ZOFRAN-ODT) disintegrating tablet 4 mg No Dose/Rate, Q6H PRN, Oral See Alternative: 05/06 113 oxyCODONE tablet 5-10 mg 5-10 mg, Q4H PRN, Oral Ordered prochlorperazine edisylate (COMPAZINE) injection 5 mg 5 mg, Q4H PRN, IV Given: 05/06 215 Assessment/Plan Marylou Hernandez is a 28 y.o. 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 Postoperative course c/b hypotension with increasing pressor requirement, transferred to [place] [address] ICU for further management. * Post-operative state Marylou post op ex lap, total abdominal radical hysterectomy, bilat salpingectomy, upper vaginectomy, pelvic lymph node dissection on 05/05 who had persistent pressor requirement and low hgb requiring transfusions taken back to OR for exploration. S/p exp lap. Evacuated 2L blood, no obvious bleeding vessels seen, several suspicious vessels sutured and hemostatic agents (surgicel) used, no further notable bleeding, abd was closed. Intra op: 4 pRBC, 4 FFP, 2 platelets, 250 albumin, 2L crystalloid, uop 300cc, total EBL estimated 2.5L. Neuro: #sedation -discontinued propofol at extubation #pain - epidural thoracic level T7-8 dilaudid/bupi PCEA continuous rate 6mL, 2mL PCEA 20 min - Standing tylenol, gabapentin - Oxy PRN - Holding NSAIDs - Home bupropion ?? Resp: - taken back to OR for re-exploration to assess intraabdominal bleeding -- remained intubated post op -past SBT and extubated to cool mist mask ?? CV/Heme: #Hypovolemic shock -- significant intraoperative blood loss (EBL 1L), likely ongoing oozing given +FAST @ 1am 05/06 (reportedly negative @ 7pm 05/05) - 05/05: S/p intra-op resusc (1L albumin, 2L LR), PACU resusc (2u pRBC) - LR bolus 2L, 1u pRBC in SICU 05/05,LR infusion @ 75 - Wean andre as able - MAP goal > 60 - Trend lactate q6h (5.9 < 1.5 < 2.3) - CBC q2h/ Hgb Goal > 7.0 (brandyn 5.4) - If requiring more transfusions, will consider TXA - Holding DVT ppx given active bleeding ---taken back to OR 05/06 4am for exp lap, evac 2L blood, hemostatsis and closed ?? GI: - NPO - OGT removed with extubation - Nausea: Zofran, compazine, and haldol PRN. - Protonix ppx ?? Renal: - Hughes, to remain in place through discharge per [facility] (2 weeks) ?? ID: - No issues - periop ancef given ?? Endocrine: - Continue : pump and supplies in room ?? Prophylaxis: - DVT: Mechanical - Pneumoboots - Chemical - N/A - GI:Protonix Code Status: Full Code (Presumed) Bouchra Swartz, SENIOR MANUFACTURING SUPERVISOR [facility] ICU * Sterling Granados MD - 05/06/2019 1:37 PM EST [facility] Regional Anesthesia & Acute Periop Pain Service? Epidural/Peripheral Nerve Block Catheter Progress Note ? Patient: Marylou Hernandez Hospital day: 1 POD: Post Op Day #1 Procedure: Procedure(s): EXPLORATORY LAPAROTOMY & WASHOUT Subjective: Rina Hernandez is currently sedated and intubated at this time. She is able to move her legs. Epidural was checked on rounds. Epidural/PNB Catheter Type: Thoracic epidural Infusion Settings: ??? HYDROmorphone (PF) 10 mcg/mL bupivacaine 1 mg/mL (0.1%) 6 mL/hr (05/06/19 09) ??? lactated Ringers 75 mL/hr (05/06/19 1259) ??? phenylephrine ??? propofol Stopped (05/06/19 1316) - PCEA: 2 cc bolus / 20 min lockout / 4 cc/hr basal rate / 10 cc hourly max Other Analgesics: PAIN ID Vitals and Labs (Last 0 days) No flowsheets data found Therapeutic Meds Medication Dose/Rate, Frequency, Route Last Action acetaminophen (TYLENOL) tablet 975 mg 975 mg, Q6H, Oral Ordered HYDROmorphone (PF) 10 mcg/mL bupivacaine 1 mg/mL (0.1%) in NS (100 mL) PCEA (Premix CMPD) 6 mL/hr, 6 mL/hr, Continuous, Epid New Ba05/06 905 oxyCODONE tablet 5-10 mg 5-10 mg, Q4H PRN, Oral Ordered PSYCH ID Vitals and Labs (Last 0 days) No flowsheets data found Therapeutic Meds Medication Dose/Rate, Frequency, Route Last Action buPROPion (WELLBUTRIN SR) SR 12 hr tablet 150 mg 150 mg, Daily, Oral Ordered gabapentin (NEURONTIN) capsule 100 mg 100 mg, TID, Oral Ordered haloperidol lactate (HALDOL) injection 1 mg 1 mg, Q4H PRN, IV Given: 05/06 0300 Anticoagulants: ANTICOAGULATION ID Vitals and Labs (Last 0 days) No flowsheets data found Therpeutic Meds No matching active medications Drains (ETT, Hughes, Chest tube, & Nasogastric Tube): Active Lines/Drains/Airways/Wounds Central Venous Catheter Line Double Lumen Venous Sheath/Introducer Right less than 1 day Peripheral Intravenous Line Peripheral IV Left;Anterior Hand 1 day Peripheral IV Right;Anterior Hand 1 day Peripheral IV Left Saphenous less than 1 day Peripheral IV Right Foot less than 1 day Drain Urinary Catheter Two-way 1 day Closed/Suction Drain 1 19 HEAVEN DRAIN Bulb 19 Fr. Abdomen less than 1 day Closed/Suction Drain 1 bard drain Bulb 19 Fr. Right;Lateral Abdomen less than 1 day Airway ETT less than 1 day Epidural Line Epidural Catheter 1 day Arterial Line Arterial Line Left Radial less than 1 day Wound Wound Incision Medial;Lower;Other (comment) Abdomen 1 day Pain Score at Rest: unable to determine Pain Score with Movement: unable to determine Diet: NPO NGT: YES Activity: Not yet out of bed Temp Range Last 24h/Current Temp: [35.9 ??C (96.7 ??F)-37.7 ??C (99.8 ??F)] 37.1 ??C (98.8 ??F) Catheter damon at Skin: No migration Insertion Site Benign: YES Focused neurologic exam: Lower extremity sensation and strength intact Hughes in Place: YES Epidural/PNB Catheter Removed: NO - Tip intact: N/A - Reason for removal: N/A Labs: Lab Results Component Value Date WBC 3.29 (L) 05/06/2019 HGB 10.2 (L) 05/06/2019 HCT 29.3 (L) 05/06/2019 PLT 67 (L) 05/06/2019 Lab Results Component Value Date PT 15.5 (H) 05/06/2019 PT 16.6 (H) 05/06/2019 PT 17.7 (H) 05/06/2019 INR 1.2 (H) 05/06/2019 INR 1.4 (H) 05/06/2019 INR 1.5 (H) 05/06/2019 Lab Results Component Value Date PTT 29.6 05/06/2019 Assessment/Plan: 28 y.o. female now Post Op Day #1 s/p Procedure(s): EXPLORATORY LAPAROTOMY & WASHOUT. Ms. Hernandez is currently intubated and sedated on propofol.Will continue to monitor patients pain control. -Continue catheter at current settings. -APS will continue to follow. Sterling Granados MD Regional Anesthesia and Acute Perioperative Pain Service? Pager #[phone]? Associated attestation - Christoph Laurent MD - 05/06/2019 2:46 PM EST Patient seen and examined and treatment plan discussed in detail. All questions answered. Christoph Laurent M.D. Acute Pain Attending * Marin Mireles MD, PhD - 05/06/2019 8:12 AM EST ICU Staff [facility] - Critical Care Progress Note 05/06/2019 Patient: Marylou Hernandez, [id number] Date: 05/06/2019 Hospital Day: 1 Procedures: Surgical/Procedural Cases on this Admission Case IDs Date Procedure Surgeon Location Status [id number] 05/05/19 EXPLORATORY LAPAROTOMY, TOTAL ABDOMINAL RADICAL HYSTERECTOMY, BILATERAL SALPINGECTOMY, UPPER VAGINECTOMY Marce Cole MD [facility] OR Comp [id number] 05/06/19 EXPLORATORY LAPAROTOMY & WASHOUT Marce Cole MD [facility] OR Francisco Javier 28F with Chiari malformation s/p cranial decompresion/laminectomy, depression s/p ex-lap, radical abdominal hysterectomy, bilateral salpingectomy, bilateral pelvic lymph node dissection for endocervical adenocarcinoma in situ (previously treated with conization, endocervical curettage) now admittedto [place] [address] ICU from PACU with persistent hypotension concerning for bleeding, transfusing now, phenylephrine up to 180 mcg/min, transfuse for hemodynamics, goal hgb >7.0, FAST at bedside positivewith free fluid, per d/w lift slab operator attd, back to OR at 0350. Neuro: #Sedation while intubated with propofol #Chiari malformation s/p cranial decompresion/laminectomy: no neurological deficits #Pain regimen: hydromorphone/bupivacaine epidural, APAP, oxycodone PRN #Anxiety: home buproprion, d/c Ativan PRN (not a home med - prev used for refractory nausea as well) CV: hemodynamically stable not requiring pressors #hemorrhagic shock resolving after return to OR: large bore IVs, trend CBCs, transfuse as necessary Pulm: #acute respiratory failure: lung protective ventilation, wean as tolerated, pulm toilet, HOB elevated. SBT and then extubate if passes, has a cuff leak, decent gag. GI: NPO : Cr 0.7 Heme: Hgb 9.4, plt 57, INR 1.4, Fibrinogen 218, trend CBC. Transfuse as neccessary ID: wbc [id number], afebrile Endo: BS goal 120-200, no issues PPx: PPI, no PPI indicated, no BR This patient has a high probability of sudden clinically significant deterioration based on documented problems. I have directly delivered critical care services to this patient. I have reviewed the relevant x-rays, patient events of the previous 24 hours, physical exam, lab findings, fluid balance, neurologic status, and cardiovascular status including invasive monitoring data, pulmonary status,and metabolic status including nutrition, medications and results of microbiology studies. I examined the patient during rounds and at additional times during the day. The case was discussed with allappropriate health care providers. The total critical care time reported below excludes additional time for procedures. Critical care time = 78 minutes * Sis Wiley MD - 05/06/2019 6:03 AM EST [facility] Progress Note 05/06/2019 6:03 AM O/E: In the PACU between 4PM and 12AM BPs 70- 90s/ 40-50s. HR 80s-100s. Required andre to sustain BPs. Hgb trend as follows: 12.8 (pre-op) -> 7.2 (3:50PM) -> 8.0 (5:45PM)-> 5.4 (8PM) -> 6.0(8:30PM) Received 2U pRBC > Hgb 8.6 (12:30AM). Had an increase andre requirement so transferred toICU for management. In ICU, positive FAST exam with fluid visible in bilateral upper quadrants (negative fast around 7PM earlier in the day). Hgb 6.0 (2:30AM) with increasing pressor requirement. Decision made for re-exploration to assess for intraabdominal bleeding. Patient currently in the OR. S: Pt intubated; sedated. Off of pressors. Remains sedated. O: Temp: [35.9 ??C (96.7 ??F)-37.7 ??C (99.8 ??F)] 37.2 ??C (98.9 ??F) (05/06 241) HR: [70-132] 72 (05/06 344) BP: (67-124)/(39-76) 75/45 (05/06 339) RR: Respiratory Rate: [10-31] 14 O2Sat: [95 %-100 %] 99 % (05/06 344) I/O (24hr): Intake/Output Summary (Last 24 hours) at 05/06/2019 0603 Last data filed at 05/06/2019 0600 Gross per 24 hour Intake 49159.97 ml Output 1937 ml Net 26226.97 ml PEx: Gen: Intubated; sedated CV/Pulm: intubated Abd: moderately distended, mod saturation on lower aspect of bandage. JEANETTE drain w/ sang > serous output; bulb full Ext: wwp, no edema CBC Recent Labs 05/05/19 1551 05/06/19 0314 05/06/19 0433 05/06/19 0519 WBC 5.46 < > 6.85 7.70 5.28 HGB 7.2* < > 6.2* 10.1* 10.1* HCT 21.7* < > 18.6* 30.0* 29.9* PLT 139* < > 119* 62* 73* NEUT 80.7* -- -- -- -- < > = values in this interval not displayed. 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 Post-op course c/b HoTN with increase pressor requirement c/f intraabdominal bleeding requiringre- exploration POD#1; s/p re-op, exploration, e/o bleeding from peritoneal surfaces but no vessel identified; bleeding controlled, re-closed; to ICU for ongoing close monitoring. 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 Followed by so delay in treatment/followup; Now s/p radical hysterectomy, bilateral salpingectomy, pelvic lymph node dissection - Imaging preop including: MRI 04/29- no e/o malignancy. PET CT- no FDG avid mets to neck, chest abdomen or pelvis. Primary tumor not clearly visualized. No abdominopelvic mets identified. #Neuro: sedated; PCEA, standing Toradol, tylenol, oral oxy PRN, IV meds for BTP [ ] restart home bupropion - pt w/ h/o anxiety, depression - continue home bupropion - h/o chiari malformation - managed w/ cranial decompression and laminectomy; h/o partial paralysisin R eye managed w/ surgical intervention in the past [] consider SW #CV: hypotensive I/s/o ongoing bleeding overnight; now off pressors; hypertensive [] CTM BPs, HR, UOP #Pulm: Intubated #GI: NPO; bowel regimen; anti-emetics PRN #: Hughes in place plan for 2 weeks. Plan for discharge with hughes. [ ] Strict Is/Os DO NOT REMOVE HUGHES #Heme: EBL 1000 mL. Baseline Hct 37.5. 2L hemoperitoneum on re-op. Hgb 12.8 (pre-op) -> 7.2 (3:50PM) -> 8.0 (5:45PM)-> 5.4 (8PM) -> 6.0 (8:30PM).Received 2U pRBC and 750 albumin. S/p re-op; no vessel identified but bleeding controlled; re-closed; to ICU,remains intubated. Evolving DIC intraop; CTM INR, PLT, hgb. [ ] PACU labs [ ] AM CBC #ID: Afebrile. S/p periop abx. No c/f infection. #Endo: No issues #Ppx: SCDs; holding anticoag I/s/o DIC #Access - 3 PIV, 2; 18 and a 20 gauge. #Dispo: pending post-op advance/clinical improvement [ ] Dc summary updated [ ] F/u appts emailed [ ] lovenox rx Discussed with [facility] fellow, Dr. May, and [facility] Attending, Dr. Cole, who agrees with management and plan. Sis Wiley MD OBGYN PGY3 [id number] Associated attestation - Marce Cole MD - 05/07/2019 7:13 AM EST I saw and evaluated the patient. I agree with the history, findings, assessment and plan documentedby Sis Wiley MD. Will follow closely post op from re-operation. * Vane Danielle, TAWANA - 05/06/2019 3:45 AM EST Nursing Admission Note Patient admitted from PACU for pressor requirement S/P HOWARD with BSO and Upper Vaginectomy. Patient initially repsonsive to fluid boluses and andre titrated off. Then suddenly became hypotensive and second liter of fluid and 1UPRBCs given. A- line placed for increasing pressor requirement and frequesntlab draws. H/H dropped to 6.2/18.6 and it was decided for patient to return to OR for Exp Lap and Washout. Neuro/Psych: Arousable and oriented x3. SILVER and follows commands. Patient shaking and crying at times with venipunctures. Pain: Epidural PCEA Bupi/Dilaudid @4ml/hr with good pain management. Cardiac/Vascular: MAP goal >60, titrating Andre and giving fluid boluses to maintain MAP goal. 1UPRCs given and H/H continued to drop Resp: Tolerating room air. LSCTA. GI/: Strict NPO. Frequent episodes of nausea/vomiting, PRN zofran/compazine/haldol given with some effect on nausea. Infection: Afebrile. No abx. Skin/Wound: Midline lower abdominal incision closed with glue. Cynthia pads to vulva with dried brownish red staining. Epidural site with small amounts of bleeding at site. Access: PIV x3 patent with blood return. L radial a-line placed. documented in this encounter H&P Notes * Mahamed Bentley MD - 05/06/2019 1:57 AM EST HEAVEN 12 ICU ADMIT NOTE NAME: ?Marylou Hernandez ?? Date of SICU admit: 05/06/2019 Time: 1:57 AM ICU Attending: Dr. Varsha Jackson Surgical Attending: Marce Cole MD Surgical Service: [facility] Active Hospital Problems Diagnosis Date Noted ??? Post-operative state 05/05/2019 Reason for SICU Admission: Postoperative hypotension requiring pressors HPI: Marylou Hernandez is a 28 y.o. 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 Postoperative course c/b hypotension with increasing pressor requirement, transferred to [place] [address] ICU for further management. Intra-op EBL was [...] Colposcopy, without biopsy; 10/14/2013; 04/08/2016 - @ [facility] ??? UNCODED SURGICAL HISTORY Abdominal pain [...] surgery; 2005 ??? UNCODED SURGICAL HISTORY Polyuria Home Medications: Medications Prior to Admission Medication Sig ??? buPROPion (WELLBUTRIN XL) 150 MG ER 24 hr tablet Take 150 mg by mouth daily. For depression ??? norethindrone (MICRONOR) 0.35 mg tablet Take 1 tablet (0.35 mg total) by mouth daily. Micronor 1 tab po QD ??? 95-iron oyz-jnfog-xlr ( + DHA) 28 mg iron-800 mcg-200 [...] file Gets together: Not on file Attends church service: Not on file Active member of [...] Results from last 7 days Lab Units 05/06/19222905/05/19202905/05/19195605/05/19174505/05/19 1551 WBC K/uL 6.61 7.15 5.84 7.25 5.46 HGB g/dL 8.6* 6.0* 5.4* 8.0* 7.2* HCT % 25.4* 17.6* 15.9* 24.3* 21.7* PLT K/uL 149* 183 130* 200 139* Results from last 7 days Lab Units 05/05/19 1551 NEUTROPHIL # K/uL 4.41 Results from last 7 days Lab Units 05/06/19222905/05/19202905/05/19195605/05/1905/05/20 1551 SODIUM mmol/L 142 144 142 144 145 POTASSIUM mmol/L 4.2 4.4 4.9 4.0 3.4 CHLORIDE mmol/L 108 106 107 107 113* CARBON DIOXIDE mmol/L 21* 22* 21* 23 17* BUN mg/dL 10 8 8 8 6* CREATININE mg/dL 0.68 0.63 0.63 0.72 0.43* GLUCOSE mg/dL 157* 123* 105 182* 119* Results from last 7 days Lab Units 05/06/19222905/05/19202905/05/19195605/05/19174505/05/19 1551 CALCIUM mg/dL 8.8 8.2* 7.5* 8.1* 6.4* MAGNESIUM mg/dL 2.5* 1.5* 1.3* 1.5* 1.0* Results from last 7 days Lab Units 05/02/19 1220 GLUCOSE (POC) mg/dL 80 Results from last 7 days Lab Units 05/06/19 00105/05/19174505/05/19 1551 05/05/19 1005 PT sec 18.1* 16.3* 18.5* 13.3 PTT sec 27.7 22.9 28.9 26.6 PT-INR 1.5* 1.3* 1.5* 1.0 Invalid input(s): ABASEDEF Results from last 7 days Lab Units 05/06/19 00105/05/19202905/05/19 1512 05/05/19 1409 PH, VENOUS 7.32 7.41* 7.27* 7.27* PCO2, VENOUS mm[Hg] 43 37* 48 36* PO2, VENOUS mm[Hg] 73* 58* 45 39 Invalid input(s): CKMB No results found for: TSH, GHBA1C EKG: No results found for any visits on 05/05/19. Imaging: No orders to display Assessment and Plan: Marylou Hernandez is a 28 y.o. 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 Postoperative course c/b hypotension with increasing pressor requirement, transferred to [place] [address] ICU for further management. Neuro: - PCEA [...] ativan PRN - Protonix ppx Renal: - Hughes, to remain in place through discharge per [facility] ID: - No issues Endocrine: - Continue [...] personally invested in direct care of Marylou Hernandez on 05/06/2019= 45 minutes and excludes additional time for procedures. ? Issues to emphasize include:?? Agree with Dr. Bentley's excellent note. Briefly, 28F with Chiari malformation s/p cranial decompresion/laminectomy, depression s/p ex-lap, radical abdominal hysterectomy, bilateral salpingectomy, bilateral pelvic lymph node dissection for endocervical adenocarcinoma in situ (previously treated with conization, endocervical curettage) now admitted to [place] [address] ICU from PACU with persistent hypotension concerning for bleeding, transfusing now, phenylephrine up to 180mcg/min, transfuse for hemodynamics, goal hgb >7.0, FAST at bedside positive with free fluid, per d/w lift slab operator attd, back to OR at 0350. ? Varsha Jackson MD MPH Critical Care Attending [facility] Pager: [phone] documented in this encounter Procedure Notes * Marce Cole MD - 05/06/2019 4:27 AM EST Full Operative Note Patient Name: Marylou Hernandez Date of Surgery: 05/06/2019 Pre-Op Dx: S/p Radical hysterectomy/PLND with post operative bleeding Post-Op Dx: S/p Radical hysterectomy/PLND with post operative bleeding Procedure(s): EXPLORATORY LAPAROTOMY & WASHOUT Surgeon(s): Marce Cole MD Fellow Assist: Dr. May Heel Top Lift Splitter: Jabari Guerrero MD Dip Tube Assembler Machine: Mich Sauceda MD, BERNARD; Vera Valle MD [...] ooze was appreciated from both the left cynthia-rectal space and the rectovaginal septum . In [...] that global friability in the dissected left cynthia-rectal space and rectovaginal space. Hemostasis obtained and [...] Output (mL) 110 mL 05/06/2019 12:59 PM * Marce Cole MD - 05/06/2019 4:27 AM EST Operative note addendum The patient tolerated this procedure well. Sponge, lap and needle counts were correct x2. There were no complications and I, the attending physician, was present and scrubbed for the entire duration of this procedure. * Mahamed Bentley MD - 05/06/2019 3:15 AM EST SICU Arterial Line Procedure Note NAME: ?Marylou Hernandez ?? Date of Procedure: 05/06/2019 Time: 3:15 AM Attending: Varsha Jackson MD Resident/Fellow: Makenna Shea MD Procedure: Arterial Line Arterial line placed under sterile conditions. Guide wire exchange: Yes Location: Left Radial Artery Indication / Diagnosis: Hypotension Active Hospital Problems Diagnosis Date Noted ??? Post-operative state 05/05/2019 Anesthesia / sedation: Local/topical: 1% lidocaine 3 mL Safety Pause Performed: Yes Consent Obtained: Yes Findings: Guide wire threaded easily. Good arterial waveform. Flushed without difficulty and brisk withdrawal of blood. A-Line catheter secured with tegaderm. Complications: None; patient tolerated the procedure well. Associated attestation - Varsha Jackson MD, MPH - 05/06/2019 3:36 AM EST Varsha Jackson MD (ICU Attending Physician) was present during the critical/dejesus portions of the procedure and otherwise immediately available. * Areli Vega MD - 05/05/2019 3:32 PM EST Brief Operative Note Patient Name: Marylou Hernandez Date of Surgery: 05/05/2019 Pre-Op Diagnosis Codes: * Malignant neoplasm of endocervix [C53.0] Post-Op Diagnosis Codes: * Malignant neoplasm of endocervix [C53.0] Procedure(s): EXPLORATORY LAPAROTOMY, TOTAL ABDOMINAL RADICAL HYSTERECTOMY, BILATERAL SALPINGECTOMY, UPPER VAGINECTOMY LYMPHADENECTOMY PELVIC Surgeon(s): Marce Cole MD Fellow: Comfort May MD; Areli Vega MD Heel Top Lift Splitter: Magen Garza MD PRODUCT ACCOUNTANT: Vane Mejia CRNA Anesthesia Type: General Estimated Blood Loss: 1000 mL IVF: 1900 mL LR, 1000 mL of albumin UOP: 300 mL Specimens: ID Type Source Tests Collected by Time Destination A : Left pelvic lymph nodes Anatomic Pathology Anatomic Pathology ANATOMIC PATHOLOGY Marce Cole MD 05/05/2019 1112 B : Right pelvic lymph nodes Anatomic Pathology Anatomic Pathology ANATOMIC PATHOLOGY Marce Cole MD 05/05/2019 1145 C : Uterus, Cervix, Bilateral Fallopian Tubes and Upper Vagina Parametrium Anatomic Pathology Anatomic Pathology ANATOMIC PATHOLOGY Marce Cole MD 05/05/2019 1439 D : Left Parametrium Anatomic Pathology Anatomic Pathology ANATOMIC PATHOLOGY Marce Cole MD 05/05/2019 1443 Drains: PCEA, Hughes Findings: No carcinomatosis or ascites. No enlarged lymph nodes. Normal ovaries bilaterally. Small mobile uterus. Please see dictated operative note for complete details. Post op plan: Home from day surgery Dr. Surgeon(s): Marce Cole MD present and scrubbed throughout. Areli Vega MD [facility] Fellow [facility] Pager: [phone] Personal Pager: [phone] * Marce Cole MD - 05/05/2019 10:16 AM EST Full Operative Note Patient Name: Marylou Hernandez Date of Surgery: 05/05/2019 Pre-Op Diagnosis Codes: * Malignant neoplasm of endocervix [C53.0] Post-Op Diagnosis Codes: * Malignant neoplasm of endocervix [C53.0] Procedure(s): EXPLORATORY LAPAROTOMY, TOTAL ABDOMINAL RADICAL HYSTERECTOMY, BILATERAL SALPINGECTOMY, UPPER VAGINECTOMY LYMPHADENECTOMY PELVIC Surgeon(s): Marce Cole MD Fellow Assists: Dr. Gary Snow Heel Top Lift Splitter: Magen Garza MD PRODUCT ACCOUNTANT: Vane Mejia CRNA Anesthesia Type: General ASA Code: II Description of Procedure: The patient was brought to the operating room where general anesthesia was felt to be adequate. She was prepped and draped in normal sterile fashion in dorsal lithotomy position in the [facility]. Attention was first turned to placing a sterile silastic hughes and then was turned to making a midline incision with a knife and brought down to underlying layer of fascia.With the Bovie electrocautery, the fascia was then opened as well as the peritoneum for an adequatepelvic defect. The book jf was then assembled and attention was turned to opening the lateral pelvic peritoneum atop the psoas bilaterally and opening the cynthia-rectal spaces. The ureters were identified peristalsing in the medial leaf of the broad ligament bilaterally And these were tagged with a quarter inchpenrose drain. Attention was then turned to creating a clear space above the ureters, but below theIP and extending this to under the utero ovarian ligaments bilaterally. The fallopian tubes were then dissected off the ovaries to the cornua of the uterus and the utero ovarian ligaments with cauterized and cut with the ligasure for excellent hemostasis. In the pelvis, attention was then turned to performing a bilateral pelvic lymph node dissection. This was done on the right and left in a similar fashion. The lymphatic tissue atop the psoas muscles was mobilized medially atop the external iliac artery and vein into the obturator space. The obturator nerves were from the lymphatic packets and dissected to the confluence of the bifurcation of the external and internal iliac arteries bilaterally. These ozzy packets were removed and sent for permanent. Attention was then turned to performing the radical hysterectomy. The origin of the round ligamentsand the uterine arteries were identified and ligated with silk ties and scissors. The parametrial tissue was then skeletonized and mobilize atop the ureters bilaterally by first taking the ureters off the broad ligament, and then dissecting the tunnel of wertheim with right angle retractors, ties, and sidney scissiors. We then mobilized the bladder flap and carefully skeletonized all the vesicouterine peritoneum and ultimately teasing all the vesicouterine fibers away such that there was a glistening anterior vaginal mucosa. One could then appreciate the uterine artery and vein bilaterally entering into the isthmic region of the uterus. The parametrial tissue was then mobilized atop the ureters over the tunnel such that the ureters could be lateralized off the cervix below the cervicovaginal fornix. This allowed for visulaization of both ureters entering the bladder. The uterosacral ligaments were then further skeletonized and from the rectum. The posterior peritoneum was then skeletonized with the bovie and the rectovaginal space was then dissected in order to separate the posterior vagina from the rectum. The uterosacral ligaments were then cauterized and cut with the ligasure and mobilized superiorly. Curved Robin clamps were then placed below the parametria at the vaginal angles obtaining an upper 2/3 margin of vagina from the palpated cervix. These pedicles were then cut and tagged and then the Juanita scissors were utilized to come to the anterior and posterior aspect of the vagina to remove the cervix and the uterus as the next specimen. The vagina was then closed utilizing 0 Vicryl [id number]-[id number] stitches. Attention was then turned to exploring the entire abdomen. The bowel was appreciated to be entirelynormal. The colon was entirely normal. The anterior and posterior cul-de-sacs were entirely normal.There were no excrescences. Attention was then turned to copiously irrigating on the abdomen. Hemostasis was found to be excellent following 2-0 vircyl figure of 8 sutures of the rectovaginal space and surgicel and gel foam were placed in the RV septum and para rectal spaces bilaterally. Attention Was then turned to closing, a looped PDS suture was used, one stitch going from the superior aspect of the incision, one stitch going from the inferior aspect of the incision. Attention was then turned to closing to tying the #2 PDS sutures in the midline, thus closing all the fascia. Attention was then turned to closing the subcutaneous fat utilizing a 4-0 Vicryl interrupted stitches and then the skin was closed with a subcuticular stitch. This thus completed the procedure. The patient tolerated this procedure well. Sponge, lap and needle counts were correct x2. There were no complications and I, the attending physician, was present and scrubbed for the entire duration of this procedure. Procedure Findings: Normal uterus and cervix and ovaries and tubes. No evidence of extra creical disease. Nl upper abdoman with smooth peritoneal surfaces, normal stomach, normal omentum. Estimated Blood Loss: 1000 mL Specimen: ID Type Source Tests Collected by Time A : Left pelvic lymph nodes Anatomic Pathology Anatomic Pathology ANATOMIC PATHOLOGY Marce Cole MD 05/05/2019 1112 B : Right pelvic lymph nodes Anatomic Pathology Anatomic Pathology ANATOMIC PATHOLOGY Marce Cole MD 05/05/2019 1145 C : Uterus, Cervix, Bilateral Fallopian Tubes and Upper Vagina Parametrium Anatomic Pathology Anatomic Pathology ANATOMIC PATHOLOGY Marce Cole MD 05/05/2019 1439 D : Left Parametrium Anatomic Pathology Anatomic Pathology ANATOMIC PATHOLOGY Marce Cole MD 05/05/2019 1443 documented in this encounter Nursing Notes * [...] evacuation of hemoperitoneum. ?? VSS. Midline incision CARLIN, approximated. Blisters on neck from tegaderm, team aware. Hydrocortisoneapplied to neck and back for skin rash and itching, Benadryl given, MD aware. Oxy on hold because of rash. PO pain tylenol and ibuprofen with??+effect. S4quimmck removed??/17. Some nausea this shift,??Zofran and Compazine given with some effect. OOB x1 assist. I/S encouraged.Tolerating small amts regular diet. +flatus,??+small BM. Hughes to remain in place x2 weeks, leg bag teaching preformed. JPremoved this shift, dressing in place. Pt going home on Lovenox, teaching preformed. Pt has 7month son at home, breast pump at bedside, independent with pumping. Oscar involved in care. Discharge paperwork explained, all questions answered. providing transportation home. documented in this encounter OR Notes * OR Nursing - Danay Kelly RN - 05/06/2019 4:51 AM EST Pt arrived emergently to OR 30 accompanied by surgical teams, was able to confirm name and date of ; pt somnolent but arouseable ; emergent procedure Danay Kelly RN * Post-op/Post Procedure Note - Estela Dyson MD - 05/05/2019 10:15 PM EST Post-Op Progress Note 05/05/2019 10:51 PM S: Denies any pain. Currently feeling nauseated. Denies any lightheadedness or dizziness. O: Temp: [35.9 ??C (96.7 ??F)-37.7 ??C (99.8 ??F)] 35.9 ??C (96.7 ??F) (05/05 2213) HR: [78-108] 89 (05/05 2229) BP: (74-124)/(45-76) 83/52 (05/05 2229) RR: Respiratory Rate: [10-20] 10 O2Sat: [96 %-100 %] 98 % (05/05 2229) I/O (24hr): Intake/Output Summary (Last 24 hours) at 05/05/20191 Last data filed at 05/05/2019 2228 Gross per 24 hour Intake 5273.35 ml Output 1740 ml Net 3533.35 ml UOP post-op 0.9cc/kg/hr Gen: Pale appearing woman in NAD, Conversant and mentating well Abd: soft NT, ND midline incision covered with dermabond covering incision Ext: WWP with SCDs on Gu: hughes draining CYU Perineum: deferred. 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 Followed by so delay in treatment/followup; Now s/p radical hysterectomy, bilateral salpingectomy, pelvic lymph node dissection - Imaging preop including: MRI 04/29- no e/o malignancy. PET CT- no FDG avid mets to neck, chest abdomen or pelvis. Primary tumor not clearly visualized. No abdominopelvic mets identified. #Neuro: PCEA, standing Toradol, tylenol, oral oxy PRN, IV meds for BTP [ ] restart home bupropion - pt w/ h/o anxiety, depression - continue home bupropion - h/o chiari malformation - managed w/ cranial decompression and laminectomy; h/o partial paralysisin R eye managed w/ surgical intervention in the past [] consider SW #CV: HoTN to 80-90s/50-60s. Continuing to require pressors in the ICU #Pulm: Wean to RA #GI: Reg/ADAT; bowel regimen; anti-emetics PRN LR 75 for 6 hrs #: Hughes in place plan for 2 weeks. Plan for discharge with hughes. [ ] Strict Is/Os DO NOT REMOVE HUGHES #Heme: EBL 1000 mL. Baseline Hct 37.5. Hgb 12.8 (pre-op) -> 7.2 (3:50PM) -> 8.0 (5:45PM)-> 5.4 (8PM) -> 6.0 (8:30PM).Received 2U pRBC and 750 albumin. [ ] PACU labs [ ] AM CBC #ID: Afebrile. S/p periop abx. No c/f infection. #Endo: No issues #Ppx: SCD, FRANCISCO JAVIER [] transition to lovenox when PCEA out [] lovenox tail #OBGYN: [] support post operative #Dispo: pending post-op advance/clinical improvement [ ] Dc summary updated [ ] F/u appts emailed [ ] lovenox rx Estela Dyson MD [employer] PGY-2 [id number] documented in this encounter Miscellaneous Notes * [...] to remain in place through discharge per Trucksmith (2 weeks) - LR at 75cc/hr -> [...] introducer - remove - Hughes - JEANETTE documented in this encounter Plan [...] METABOLIC PANEL STAT 05/05/2019 10:05 AM EST TYPE AND SCREEN (ABO,RH,ANTIBODY SCREEN) STAT 05/05/2019 8:52 AM EST URINE HCG Routine 05/05/2019 8:02 AM EST ANATOMIC PATHOLOGY Routine 05/05/2019 12 :00 AM EST documented in this encounter Results * Creatinine (fluid--not CSF) (05/10/2019 8:45 AM EST) FLUID CREATININE 0.51 mg/dL [facility] Other (Jose medellin fluid) 05/10/2019 8:45 AM EST 05/10/2019 11:06 AM EST Marce Cole MD BODY FLUIDS A ND STOOLS ORDERABLES Performing Organization Address City/[facility]/ZIP Co de Phone Number [address] [address] * Chemistry Comment (05/10/2019 6:45 AM EST) Comments (Chemistry) JEANETTE FLUID [facility] 05/10/2019 6:45 AM EST 05/10/2019 6:51 AM EST Yamila GAGE LAB BLOOD ORDERABLES [address] [address] * Creatinine (fluid--not CSF) (05/10/2019 6:45 AM EST) FLUID CREATININE 0.57 mg/dL [facility] Comment:Icteric Other (Jose medellin fluid) 05/10/2019 6:45 AM EST 05/10/2019 6:51 AM EST Yamila GAGE BODY FLUIDS AND STOO LS ORDERABLES Performing Organization Address [facility] Co de Phone Number [address] [address] * (ABNORMAL) CBC (05/09/2019 8:40 PM EST) WBC 3.60(L) 4.5 - 11.0 K/uL [facility] RBC 3.90(L) 4.00 - 5.20 M/uL [facility] HGB 11.7(L) 12.0 - 16.0 g/dL [facility] HCT 34.9(L) 36.0 - 46.0 % [facility] PLT 114(L) 150 - 400 K/uL [facility] MCV 89.5 80.0 - 100.0 fL [facility] MCH 30.0 26.0 - 34.0 pg [facility] MCHC 33.5 31.0 - 37.0 g/dL [facility] RDW 13.4 11.5 - 14.5 % [facility] MPV 9.8 8.4 - 12.0 fl [facility] NRBC 0.00 0 - 0.20 /100 WBCs [facility] ABSOLUTE NRBC 0.00 0 - 0.01 K/uL [facility] Blood 05/09/2019 8:40 PM EST 05/09/2019 8:54 PM EST Marce Cole MD LAB BLOOD ORD ERABLES [address] [address] * Magnesium (05/09/2019 8:40 PM EST) MAGNESIUM 1.8 1.7 - 2.4 mg/dL [facility] Blood 05/09/2019 8:40 PM EST 05/09/2019 8:54 PM EST Marce Cole MD LAB BLOOD ORD ERABLES Performing Organization Address [facility] Co de Phone Number [address] [address] * (ABNORMAL) Basic metabolic panel (05/09/2019 8:40 PM EST) SODIUM 139 135 - 145 mmol/L [facility] POTASSIUM 4.1 3.4 - 5.0 mmol/L [facility] CHLORIDE 102 98 - 108 mmol/L [facility] CO2 25 23 - 32 mmol/L [facility] BUN 7(L) 8 - 25 mg/dL [facility] CREATININE 0.55(L) 0.60 - 1.50 mg/dL [facility] GLUCOSE 113(H) 70 - 110 mg/dL [facility] CALCIUM 9.1 8.5 - 10.5 mg/dL [facility] EGFR >120 >59 mL/min/1. 73m2 [facility] Comment:If patient is black, multiply result by 1.159. Estimated glomerular filtration rate calculated using the CKD-EPI equation. ANION GAP 12 3 - 17 mmol/L [facility] Blood 05/09/2019 8:40 PM EST 05/09/2019 8:54 PM EST Marce Cole MD LAB BLOOD ORD ERABLES Performing Organization Address City/[facility]/ZIP Co de Phone Number [address] [address] * (ABNORMAL) CBC (05/08/2019 8:50 PM EST) WBC 3.94(L) 4.5 - 11.0 K/uL [facility] RBC 3.61(L) 4.00 - 5.20 M/uL [facility] HGB 11.1(L) 12.0 - 16.0 g/dL [facility] HCT 31.7(L) 36.0 - 46.0 % [facility] PLT 100(L) 150 - 400 K/uL [facility] MCV 87.8 80.0 - 100.0 fL [facility] MCH 30.7 26.0 - 34.0 pg [facility] MCHC 35.0 31.0 - 37.0 g/dL [facility] RDW 13.2 11.5 - 14.5 % [facility] MPV 9.9 8.4 - 12.0 fl [facility] NRBC 0.00 0 - 0.20 /100 WBCs [facility] ABSOLUTE NRBC 0.00 0 - 0.01 K/uL [facility] Blood 05/08/2019 8:50 PM EST 05/08/2019 9:27 PM EST Marce Cole MD LAB BLOOD ORD ERABLES Performing Organization Address City/[facility] Co de Phone Number [address] [address] * Magnesium (05/08/2019 8:50 PM EST) Pathologist [facility] [place] MAGNESIUM 1.8 1.7 - 2.4 mg/dL [facility] Blood 05/08/2019 8:50 PM EST 05/08/2019 9:28 PM EST Marce Cole MD LAB BLOOD ORD ERABLES Performing Organization Address City/[facility] Co de Phone Number [address] [address] * (ABNORMAL) Basic metabolic panel (05/08/2019 8:50 PM EST) Pathologist [facility] [place] SODIUM 141 135 - 145 mmol/L [facility] POTASSIUM 3.3(L) 3.4 - 5.0 mmol/L [facility] CHLORIDE 102 98 - 108 mmol/L [facility] CO2 25 23 - 32 mmol/L [facility] BUN 6(L) 8 - 25 mg/dL [facility] CREATININE 0.52(L) 0.60 - 1.50 mg/dL [facility] GLUCOSE 111(H) 70 - 110 mg/dL [facility] CALCIUM 8.7 8.5 - 10.5 mg/dL [facility] EGFR >120 >59 mL/min/1. 73m2 [facility] Comment:If patient is black, multiply result by 1.159. Estimated glomerular filtration rate calculated using the CKD-EPI equation. ANION GAP 14 3 - 17 mmol/L [facility] Blood 05/08/2019 8:50 PM EST 05/08/2019 9:28 PM EST Marce Cole MD LAB BLOOD ORD ERABLES [address] [address] * (ABNORMAL) CBC (05/08/2019 5:11 AM EST) WBC 2.80(L) 4.5 - 11.0 K/uL [facility] RBC 3.44(L) 4.00 - 5.20 M/uL [facility] HGB 10.6(L) 12.0 - 16.0 g/dL [facility] HCT 30.3(L) 36.0 - 46.0 % [facility] PLT 74(L) 150 - 400 K/uL [facility] MCV 88.1 80.0 - 100.0 fL [facility] MCH 30.8 26.0 - 34.0 pg [facility] MCHC 35.0 31.0 - 37.0 g/dL [facility] RDW 13.6 11.5 - 14.5 % [facility] MPV 9.6 8.4 - 12.0 fl [facility] NRBC 0.00 0 - 0.20 /100 WBCs [facility] ABSOLUTE NRBC 0.00 0 - 0.01 K/uL [facility] Blood 05/08/2019 5:11 AM EST 05/08/2019 5:44 AM EST Marce Cole MD LAB BLOOD ORD ERAVIJI [address] [address] * Prepare Platelets (05/08/2019 12:38 AM EST) Product Code [id number] 05/08/2019 12:38 AM EST [facility] Unit Number [id number] 05/08/19 12:38 AM EST [facility] Product Status Issued, Final 05/08/2019 12:38 AM EST [facility] ABO/Rh of Unit APOS 05/08/2019 12:38 AM EST [facility] Expiration Date/Time [id number] 05/08/2019 12:38 AM EST [facility] Unit Barcode 05/08/2019 12:38 AM EST [facility] Blood Bank BLOOD BANK PRODUCT O RDERABLES Performing Organization Address City/[facility] Co de Phone Number [address] [address] * (ABNORMAL) CBC (05/07/2019 9:08 PM EST) WBC 3.57(L) 4.5 - 11.0 K/uL [facility] RBC 3.19(L) 4.00 - 5.20 M/uL [facility] HGB 9.6(L) 12.0 - 16.0 g/dL [facility] HCT 28.1(L) 36.0 - 46.0 % [facility] PLT 75(L) 150 - 400 K/uL [facility] MCV 88.1 80.0 - 100.0 fL [facility] MCH 30.1 26.0 - 34.0 pg [facility] MCHC 34.2 31.0 - 37.0 g/dL [facility] RDW 13.6 11.5 - 14.5 % [facility] MPV 9.6 8.4 - 12.0 fl [facility] NRBC 0.00 0 - 0.20 /100 WBCs [facility] ABSOLUTE NRBC 0.00 0 - 0.01 K/uL [facility] Blood 05/07/2019 9:08 PM EST 05/07/2019 9:15 PM EST Marce Cole MD LAB BLOOD ORD ERABLES [address] [address] * Magnesium (05/07/2019 9:08 PM EST) MAGNESIUM 2.1 1.7 - 2.4 mg/dL [facility] Blood 05/07/2019 9:08 PM EST 05/07/2019 9:16 PM EST Marce Cole MD LAB BLOOD ORD ERABLES [address] [address] * (ABNORMAL) Basic metabolic panel (05/07/2019 9:08 PM EST) SODIUM 140 135 - 145 mmol/L [facility] POTASSIUM 3.8 3.4 - 5.0 mmol/L [facility] CHLORIDE 101 98 - 108 mmol/L [facility] CO2 25 23 - 32 mmol/L [facility] BUN 5(L) 8 - 25 mg/dL [facility] CREATININE 0.55(L) 0.60 - 1.50 mg/dL [facility] GLUCOSE 87 70 - 110 mg/dL [facility] CALCIUM 8.5 8.5 - 10.5 mg/dL [facility] EGFR >120 >59 mL/min/1. 73m2 [facility] Comment:If patient is black, multiply result by 1.159. Estimated glomerular filtration rate calculated using the CKD-EPI equation. ANION GAP 14 3 - 17 mmol/L [facility] Blood 05/07/2019 9:08 PM EST 05/07/2019 9:16 PM EST Marce Cole MD LAB BLOOD ORD ERABLES [address] [address] * Phosphorus (05/07/2019 4:39 PM EST) PHOSPHORUS 2.7 2.6 - 4.5 mg/dL [facility] Blood 05/07/2019 4:39 PM EST 05/07/2019 4:48 PM EST Robina Barlow DEEP [employer]IC[employer]PERATOR LAB BLOOD ORDERAB LES Performing Organization Address City/[facility]/ZIP Co de Phone Number [address] [address] * Magnesium (05/07/2019 4:39 PM EST) MAGNESIUM 2.3 1.7 - 2.4 mg/dL [facility] Blood 05/07/2019 4:39 PM EST 05/07/2019 4:48 PM EST Bouchra Swartz CNP LAB BLOOD ORDERABLES Performing Organization Address City/[facility]/ZIP Co de Phone Number [address] [address] * (ABNORMAL) CBC (05/07/2019 4:39 PM EST) WBC 3.67(L) 4.5 - 11.0 K/uL [facility] RBC 3.24(L) 4.00 - 5.20 M/uL [facility] HGB 9.8(L) 12.0 - 16.0 g/dL [facility] HCT 28.5(L) 36.0 - 46.0 % [facility] PLT 82(L) 150 - 400 K/uL [facility] MCV 88.0 80.0 - 100.0 fL [facility] MCH 30.2 26.0 - 34.0 pg [facility] MCHC 34.4 31.0 - 37.0 g/dL [facility] RDW 13.8 11.5 - 14.5 % [facility] MPV 10.0 8.4 - 12.0 fl [facility] NRBC 0.00 0 - 0.20 /100 WBCs [facility] ABSOLUTE NRBC 0.00 0 - 0.01 K/uL [facility] Blood 05/07/2019 4:39 PM EST 05/07/2019 4:48 PM EST Bouchra Swartz CNP LAB BLOOD ORDERABLES Performing Organization Address City/[facility]/ZIP Co de Phone Number [address] [address] * Potassium (05/07/2019 2:29 PM EST) POTASSIUM 4.0 3.4 - 5.0 mmol/L [facility] Blood 05/07/2019 2:29 PM EST 05/07/2019 2:44 PM EST Robina Thor[facility]hen[facility] DEEP SUBMERGENCE VEHICLE OPERATOR LAB BLOOD ORDERAB LES Performing Organization Address City/[facility] Co de Phone Number [address] [address] * Potassium (05/07/2019 9:43 AM EST) POTASSIUM 3.6 3.4 - 5.0 mmol/L [facility] Blood 05/07/2019 9:43 AM EST 05/07/2019 9:53 AM EST [facility]aterri [facility]Core[facility] LAB BLOOD ORDERAB LES Performing Organization Address [facility] Co de Phone Number [address] [address] * Magnesium (05/07/2019 9:43 AM EST) Pathologist [facility] [place] MAGNESIUM 1.8 1.7 - 2.4 mg/dL [facility] Blood 05/07/2019 9:43 AM EST 05/07/2019 9:53 AM EST Bouchra Swartz [facility] LAB BLOOD ORDERABLES Performing Organization Address City/[facility] Co de Phone Number [address] [address] * Prepare RBC (05/07/2019 6:44 AM EST) Product Code [id number] 05/07/2019 4:35 AM EST [facility] Unit Number [id number] 05/07/19 20 4:35 AM EST [facility] Crossmatch Interpretation Compatible 05/06/2019 3:57 AM EST [facility] Product Status Issued, Final 020 4:35 AM EST [facility] ABO/Rh of Unit APOS 05/07/2019 4:35 AM EST [facility] Expiration Date/Time [id number] 05/07/2019 4:35 AM EST [facility] Unit Barcode 05/07/2019 4:35 AM EST [facility] Product Code [id number] 05/07/2019 6:44 AM EST [facility] Unit Number [id number] 05/07/19 6:44 AM EST [facility] Crossmatch Interpretation Compatible 05/06/2019 6:36 AM EST [facility] Product Status No Longer Ready 05/07 6:44 AM EST [facility] ABO/Rh of Unit APOS 05/07/2019 6:44 AM EST [facility] Expiration Date/Time [id number] 05/07/2019 6:44 AM EST [facility] Unit Barcode 05/07/2019 6:44 AM EST [facility] Product Code [id number] 05/07/2019 6:44 AM EST [facility] Unit Number [id number] 05/07/19 6:44 AM EST [facility] Crossmatch Interpretation Compatible 05/06/2019 6:36 AM EST [facility] Product Status No Longer Ready 05/07 6:44 AM EST [facility] ABO/Rh of Unit APOS 05/07/2019 6:44 AM EST [facility] Expiration Date/Time [id number] 05/07/2019 6:44 AM EST [facility] Unit Barcode 05/07/2019 6:44 AM EST [facility] Product Code [id number] 05/07/2019 4:35 AM EST [facility] Unit Number [id number] 05/07/19 4:35 AM EST [facility] Crossmatch Interpretation Compatible 05/06/2019 3:57 AM EST [facility] Product Status Issued, Final 020 4:35 AM EST [facility] ABO/Rh of Unit APOS 05/07/2019 4:35 AM EST [facility] Expiration Date/Time [id number] 05/07/2019 4:35 AM EST [facility] Unit Barcode 05/07/2019 4:35 AM EST [facility] 05/05/2019 10: 06 AM EST Blood Bank BLOOD BANK PRODUCT O RDERABLES [facility] [address] [place] [address] * Prepare RBC (05/07/2019 6:44 AM EST) Product Code [id number] 05/07/2019 6:44 AM EST [facility] Unit Number [id number] 05/07/19 6:44 AM EST [facility] Crossmatch Interpretation Compatible 05/06/2019 3:46 AM EST [facility] Product Status No Longer Ready 05/07 6:44 AM EST [facility] ABO/Rh of Unit APOS 05/07/2019 6:44 AM EST [facility] Expiration Date/Time [id number] 05/07/2019 6:44 AM EST [facility] Unit Barcode 6200 05/07/2019 6:44 AM EST [facility] Product Code [id number] 05/07/2019 6:44 AM EST [facility] Unit Number [id number] 05/07/19 6:44 AM EST [facility] Crossmatch Interpretation Compatible 05/06/2019 6:36 AM EST [facility] Product Status No Longer Ready 05/07 6:44 AM EST [facility] ABO/Rh of Unit APOS 05/07/2019 6:44 AM EST [facility] Expiration Date/Time [id number] 05/07/2019 6:44 AM EST [facility] Unit Barcode 6200 05/07/2019 6:44 AM EST [facility] Product Code [id number] 05/07/2019 4:35 AM EST [facility] Unit Number [id number] 05/07/19 4:35 AM EST [facility] Crossmatch Interpretation Compatible 05/06/2019 3:46 AM EST [facility] Product Status Issued, Final 020 4:35 AM EST [facility] ABO/Rh of Unit APOS 05/07/2019 4:35 AM EST [facility] Expiration Date/Time [id number] 05/07/2019 4:35 AM EST [facility] Unit Barcode 6200 05/07/2019 4:35 AM EST [facility] Product Code [id number] 05/07/2019 6:44 AM EST [facility] Unit Number [id number] 05/07/19 6:44 AM EST [facility] Crossmatch Interpretation Compatible 05/06/2019 6:36 AM EST [facility] Product Status No Longer Ready 05/07 6:44 AM EST [facility] ABO/Rh of Unit APOS 05/07/2019 6:44 AM EST [facility] Expiration Date/Time [id number] 05/07/2019 6:44 AM EST [facility] Unit Barcode 6200 05/07/2019 6:44 AM EST [facility] 05/05/2019 10: 06 AM EST Ana Lamas [facility] BLOOD BANK PRODUCT O RDERABLES [address] [address] * Prepare Platelets (05/07/2019 4:35 AM EST) Product Code [id number] 05/07/2019 4:35 AM EST [facility] Unit Number [id number] 05/07/19 4:35 AM EST [facility] Product Status Issued, Final 05/07/2019 4:35 AM EST [facility] ABO/Rh of Unit APOS 05/07/2019 4:35 AM EST [facility] Expiration Date/Time [id number] 05/07/2019 4:35 AM EST [facility] Unit Barcode 6200 05/07/2019 4:35 AM EST [facility] Blood Bank BLOOD BANK PRODUCT O RDERABLES [address] [address] * Prepare Plasma (05/07/2019 4:35 AM EST) Product Code [id number] 05/07/2019 4:35 AM EST [facility] Unit Number [id number] 05/07/19 4:35 AM EST [facility] Product Status Issued, Final 05/07/2019 4:35 AM EST [facility] ABO/Rh of Unit ANEG 05/07/2019 4:35 AM EST [facility] Expiration Date/Time [id number] 05/07/2019 4:35 AM EST [facility] Unit Barcode 05/07/2019 4:35 AM EST [facility] Product Code [id number] 05/06/2019 6:33 AM EST [facility] Unit Number [id number] 05/06/19 6:33 AM EST [facility] Product Status No Longer Ready 05/06/2019 6:33 AM EST [facility] ABO/Rh of Unit APOS 05/06/2019 6:33 AM EST [facility] Expiration Date/Time [id number] 05/06/2019 6:33 AM EST [facility] Unit Barcode 05/06/2019 6:33 AM EST [facility] Product Code [id number] 05/07/2019 4:35 AM EST [facility] Unit Number [id number] 05/07/19 4:35 AM EST [facility] Product Status Issued, Final 05/07/2019 4:35 AM EST [facility] ABO/Rh of Unit APOS 05/07/2019 4:35 AM EST [facility] Expiration Date/Time [id number] 05/07/2019 4:35 AM EST [facility] Unit Barcode 05/07/2019 4:35 AM EST [facility] Product Code [id number] 05/06/2019 6:33 AM EST [facility] Unit Number [id number] 05/06/19 6:33 AM EST [facility] Product Status No Longer Ready 05/06/2019 6:33 AM EST [facility] ABO/Rh of Unit APOS 05/06/2019 6:33 AM EST [facility] Expiration Date/Time [id number] 05/06/2019 6:33 AM EST [facility] Unit Barcode 05/06/2019 6:33 AM EST [facility] Blood Bank BLOOD BANK PRODUCT O RDERABLES [facility] [address] [place] [address] * Prepare Plasma (05/07/2019 4:35 AM EST) Product Code [id number] 05/07/2019 4:35 AM EST [facility] Unit Number [id number] 05/07/19 4:35 AM EST [facility] Product Status Issued, Final 05/07/2019 4:35 AM EST [facility] ABO/Rh of Unit APOS 05/07/2019 4:35 AM EST [facility] Expiration Date/Time [id number] 05/07/2019 4:35 AM EST [facility] Unit Barcode 05/07/2019 4:35 AM EST [facility] Product Code [id number] 05/07/2019 4:35 AM EST [facility] Unit Number [id number] 05/07/19 4:35 AM EST [facility] Product Status Issued, Final 05/07/2019 4:35 AM EST [facility] ABO/Rh of Unit APOS 05/07/2019 4:35 AM EST [facility] Expiration Date/Time [id number] 05/07/2019 4:35 AM EST [facility] Unit Barcode 05/07/2019 4:35 AM EST [facility] Product Code [id number] 05/07/2019 4:35 AM EST [facility] Unit Number [id number] 05/07/19 4:35 AM EST [facility] Product Status Issued, Final 05/07/2019 4:35 AM EST [facility] ABO/Rh of Unit APOS 05/07/2019 4:35 AM EST [facility] Expiration Date/Time [id number] 05/07/2019 4:35 AM EST [facility] Unit Barcode 05/07/2019 4:35 AM EST [facility] Product Code [id number] 05/07/2019 4:35 AM EST [facility] Unit Number [id number] 05/07/19 4:35 AM EST [facility] Product Status Issued, Final 05/07/2019 4:35 AM EST [facility] ABO/Rh of Unit APOS 05/07/2019 4:35 AM EST [facility] Expiration Date/Time [id number] 05/07/2019 4:35 AM EST [facility] Unit Barcode 05/07/2019 4:35 AM EST [facility] [place] Lamas [employer] BLOOD BANK PRODUCT O RDERABLES [facility] [address] [place] [address] * Prepare RBC (05/07/2019 4:35 AM EST) Product Code [id number] 05/07/2019 4:35 AM EST [facility] Unit Number [id number] 05/07/19 20 4:35 AM EST [facility] Crossmatch Interpretation Compatible 05/06/2019 2:31 AM EST [facility] Product Status Issued, Final 020 4:35 AM EST [facility] ABO/Rh of Unit OPOS 05/07/2019 4:35 AM EST [facility] Expiration Date/Time [id number] 05/07/2019 4:35 AM EST [facility] Unit Barcode 5100 05/07/2019 4:35 AM EST [facility] 05/05/2019 10: 06 AM EST Marce Cole MD BLOOD BANK SD ODUCT ORDERABLES Performing Organization Address [facility] Co de Phone Number [address] [address] * PT-INR (05/07/2019 4:32 AM EST) PT 14.4 11.5 - 14.5 sec [facility] INR 1.1 0.9 - 1.1 [facility] Blood 05/07/2019 4:32 AM EST 05/07/2019 4:39 AM EST Ana Lamas SENIOR MANUFACTURING SUPERVISOR LAB BLOOD ORDERABLES Performing Organization Address [facility] Co de Phone Number [address] [address] * PTT (05/07/2019 4:32 AM EST) APTT 29.4 22.0 - 36.0 sec [facility] Comment: Due to new reagent, the standard PTT heparin therapeutic range has changed to 70-100 seconds (instead of 60-80 seconds). Check MAR for the target range that is ordered for your patient. Blood 05/07/2019 4:32 AM EST 05/07/2019 4:39 AM EST Ana Lamas SENIOR MANUFACTURING SUPERVISOR LAB BLOOD ORDERABLES Performing Organization Address [facility] Co de Phone Number [address] [address] * (ABNORMAL) Phosphorus (05/07/2019 2:45 AM EST) PHOSPHORUS 1.3(L) 2.6 - 4.5 mg/dL [facility] Blood 05/07/2019 2:45 AM EST 05/07/2019 2:56 AM EST Ana Lamas SENIOR MANUFACTURING SUPERVISOR LAB BLOOD ORDERABLES Performing Organization Address [facility] Co de Phone Number [address] [address] * Magnesium (05/07/2019 2:45 AM EST) MAGNESIUM 1.8 1.7 - 2.4 mg/dL [facility] Blood 05/07/2019 2:45 AM EST 05/07/2019 2:56 AM EST Bouchra Swartz SENIOR MANUFACTURING SUPERVISOR LAB BLOOD ORDERABLES Performing Organization Address [facility] Co de Phone Number [address] [address] * (ABNORMAL) CBC (05/07/2019 2:45 AM EST) WBC 4.04(L) 4.5 - 11.0 K/uL [facility] RBC 3.20(L) 4.00 - 5.20 M/uL [facility] HGB 9.6(L) 12.0 - 16.0 g/dL [facility] HCT 27.9(L) 36.0 - 46.0 % [facility] PLT 71(L) 150 - 400 K/uL [facility] MCV 87.2 80.0 - 100.0 fL [facility] MCH 30.0 26.0 - 34.0 pg [facility] MCHC 34.4 31.0 - 37.0 g/dL [facility] RDW 14.0 11.5 - 14.5 % [facility] MPV 9.5 8.4 - 12.0 fl [facility] NRBC 0.00 0 - 0.20 /100 WBCs [facility] ABSOLUTE NRBC 0.00 0 - 0.01 K/uL [facility] Blood 05/07/2019 2:45 AM EST 05/07/2019 2:57 AM EST Bouchra Swartz CNP LAB BLOOD ORDERABLES Performing Organization Address City/[facility]/ZIP Co de Phone Number [address] [address] * (ABNORMAL) Basic metabolic panel (05/07/2019 2:45 AM EST) SODIUM 140 135 - 145 mmol/L [facility] POTASSIUM 3.3(L) 3.4 - 5.0 mmol/L [facility] CHLORIDE 104 98 - 108 mmol/L [facility] CO2 24 23 - 32 mmol/L [facility] BUN 6(L) 8 - 25 mg/dL [facility] CREATININE 0.63 0.60 - 1.50 mg/dL [facility] GLUCOSE 87 70 - 110 mg/dL [facility] CALCIUM 7.7(L) 8.5 - 10.5 mg/dL [facility] EGFR >120 >59 mL/min/1. 73m2 [facility] Comment:If patient is black, multiply result by 1.159. Estimated glomerular filtration rate calculated using the CKD-EPI equation. ANION GAP 12 3 - 17 mmol/L [facility] Blood 05/07/2019 2:45 AM EST 05/07/2019 2:56 AM EST Marce Cole MD LAB BLOOD ORD ERABLES Performing Organization Address City/[facility]/ZIP Co de Phone Number [address] [address] * Prepare RBC (05/07/2019 12:36 AM EST) Product Code [id number] 05/07/2019 12:36 AM EST [facility] Unit Number [id number] 05/07/19 20 12:36 AM EST [facility] Crossmatch Interpretation Compatible 05/05/2019 8:35 PM EST [facility] Product Status Issued, Final 020 12:36 AM EST [facility] ABO/Rh of Unit APOS 05/07/2019 12:36 AM EST [facility] Expiration Date/Time [id number] 05/07/2019 12:36 AM EST [facility] Unit Barcode 05/07/2019 12:36 AM EST [facility] Product Code [id number] 05/07/2019 12:36 AM EST [facility] Unit Number [id number] 05/07/19 12:36 AM EST [facility] Crossmatch Interpretation Compatible 05/05/2019 8:35 PM EST [facility] Product Status Issued, Final 020 12:36 AM EST [facility] ABO/Rh of Unit APOS 05/07/2019 12:36 AM EST [facility] Expiration Date/Time [id number] 05/07/2019 12:36 AM EST [facility] Unit Barcode 05/07/2019 12:36 AM EST [facility] 05/05/2019 10: 06 AM EST Sal Shaw MD, BERNARD BLOOD BANK PRODUCT O RDERABLES Performing Organization Address City/State/[facility] [place] [address] * (ABNORMAL) CBC (05/06/2019 10:36 PM EST) WBC 4.37(L) 4.5 - 11.0 K/uL [facility] RBC 3.19(L) 4.00 - 5.20 M/uL [facility] HGB 9.7(L) 12.0 - 16.0 g/dL [facility] HCT 27.9(L) 36.0 - 46.0 % [facility] PLT 70(L) 150 - 400 K/uL [facility] MCV 87.5 80.0 - 100.0 fL [facility] MCH 30.4 26.0 - 34.0 pg [facility] MCHC 34.8 31.0 - 37.0 g/dL [facility] RDW 14.0 11.5 - 14.5 % [facility] MPV 9.2 8.4 - 12.0 fl [facility] NRBC 0.00 0 - 0.20 /100 WBCs [facility] ABSOLUTE NRBC 0.00 0 - 0.01 K/uL [facility] Blood 05/06/2019 10:3 6 PM EST 05/06/2019 11:32 PM EST Ana Lamas SENIOR MANUFACTURING SUPERVISOR LAB BLOOD ORDERABLES [address] [address] * (ABNORMAL) Magnesium (05/06/2019 3:52 PM EST) MAGNESIUM 1.6(L) 1.7 - 2.4 mg/dL [facility] Blood 05/06/2019 3:52 PM EST 05/06/2019 4:07 PM EST Bouchra Swartz [facility] LAB BLOOD ORDERABLES Performing Organization Address City/[facility]/ZIP Co de Phone Number [address] [address] * (ABNORMAL) CBC (05/06/2019 3:51 PM EST) WBC 3.77(L) 4.5 - 11.0 K/uL [facility] RBC 3.29(L) 4.00 - 5.20 M/uL [facility] HGB 10.0(L) 12.0 - 16.0 g/dL [facility] HCT 29.2(L) 36.0 - 46.0 % [facility] PLT 77(L) 150 - 400 K/uL [facility] MCV 88.8 80.0 - 100.0 fL [facility] MCH 30.4 26.0 - 34.0 pg [facility] MCHC 34.2 31.0 - 37.0 g/dL [facility] RDW 13.9 11.5 - 14.5 % [facility] MPV 9.3 8.4 - 12.0 fl [facility] NRBC 0.00 0 - 0.20 /100 WBCs [facility] ABSOLUTE NRBC 0.00 0 - 0.01 K/uL [facility] Blood 05/06/2019 3:51 PM EST 05/06/2019 4:06 PM EST Bouchra Swartz [facility] LAB BLOOD ORDERABLES [address] [address] * Lactate (05/06/2019 3:51 PM EST) LACTIC ACID (MMOL/L) 0.7 0.5 - 2.0 mmol/L [facility] Blood 05/06/2019 3:51 PM EST 05/06/2019 4:06 PM EST Marce Cole MD LAB BLOOD ORD ERABLES Performing Organization Address [facility]/ZIP Co de Phone Number [address] [address] * Ionized calcium (05/06/2019 12:37 PM EST) IONIZED CALCIUM 1.26 1.14 - 1.30 mmol/L [facility] Blood 05/06/2019 12:3 7 PM EST 05/06/2019 12:47 PM EST Bouchra Swartz CNP LAB BLOOD ORDERABLES Performing Organization Address [facility] Co de Phone Number [address] [address] * PTT (05/06/2019 12:37 PM EST) APTT 29.6 22.0 - 36.0 sec [facility] Comment: Due to new reagent, the standard PTT heparin therapeutic range has changed to 70-100 seconds (instead of 60-80 seconds). Check MAR for the target range that is ordered for your patient. Blood 05/06/2019 12:3 7 PM EST 05/06/2019 12:47 PM EST Bouchra Swartz CNP LAB BLOOD ORDERABLES Performing Organization Address [facility] Co de Phone Number [address] [address] * (ABNORMAL) PT-INR (05/06/2019 12:37 PM EST) PT 15.5(H) 11.5 - 14.5 sec [facility] INR 1.2(H) 0.9 - 1.1 [facility] Blood 05/06/2019 12:3 7 PM EST 05/06/2019 12:47 PM EST Bouchra Swartz CNP LAB BLOOD ORDERABLES Performing Organization Address City/[facility]/ZIP Co de Phone Number [address] [address] * (ABNORMAL) Arterial blood gas (05/06/2019 11:43 AM EST) FIO2 0.30 FIO2/L min [facility] PH 7.38 7.35 - 7.45 [facility] PCO2 42 35 - 42 mm[Hg] [facility] PO2 115(H) 80 - 100 mm[Hg] [facility] Base Excess, unspecified NEG 0.0 - 3.0 mmol/L [facility] Comment:0.9NEG HCO3, unspecified 24 24 - 30 mmol/L [facility] Blood 05/06/2019 11:4 3 AM EST 05/06/2019 11:54 AM EST Bouchra Swartz CNP LAB BLOOD ORDERABLES Performing Organization Address [facility] Co de Phone Number [address] [address] * (ABNORMAL) Arterial blood gas (05/06/2019 9:36 AM EST) FIO2 0.35 FIO2/L min [facility] PH 7.59(H) 7.35 - 7.45 [facility] PCO2 25(L) 35 - 42 mm[Hg] [facility] PO2 190(H) 80 - 100 mm[Hg] [facility] Base Excess, unspecified 2.0 0.0 - 3.0 mmol/L [facility] HCO3, unspecified 23(L) 24 - 30 mmol/L [facility] Blood 05/06/2019 9:36 AM EST 05/06/2019 9:50 AM EST Bouchra Swartz CNP LAB BLOOD ORDERABLES Performing Organization Address City/[facility] Co de Phone Number [address] [address] * (ABNORMAL) CBC (05/06/2019 9:36 AM EST) WBC 3.29(L) 4.5 - 11.0 K/uL [facility] RBC 3.37(L) 4.00 - 5.20 M/uL [facility] HGB 10.2(L) 12.0 - 16.0 g/dL [facility] HCT 29.3(L) 36.0 - 46.0 % [facility] PLT 67(L) 150 - 400 K/uL [facility] MCV 86.9 80.0 - 100.0 fL [facility] MCH 30.3 26.0 - 34.0 pg [facility] MCHC 34.8 31.0 - 37.0 g/dL [facility] RDW 13.8 11.5 - 14.5 % [facility] MPV 9.7 8.4 - 12.0 fl [facility] NRBC 0.00 0 - 0.20 /100 WBCs [facility] ABSOLUTE NRBC 0.00 0 - 0.01 K/uL [facility] Blood 05/06/2019 9:36 AM EST 05/06/2019 11:17 AM EST Bouchra Swartz CNP LAB BLOOD ORDERABLES Performing Organization Address City/[facility]/ZIP Co de Phone Number [address] [address] * (ABNORMAL) Lactate (05/06/2019 9:36 AM EST) LACTIC ACID (MMOL/L) 2.5(H) 0.5 - 2.0 mmol/L [facility] Blood 05/06/2019 9:36 AM EST 05/06/2019 11:17 AM EST Marce Cole MD LAB BLOOD ORD ERABLES Performing Organization Address City/[facility] Co de Phone Number [address] [address] * (ABNORMAL) Lactate (05/06/2019 8:31 AM EST) LACTIC ACID (MMOL/L) 2.2(H) 0.5 - 2.0 mmol/L [facility] Blood 05/06/2019 8:31 AM EST 05/06/2019 8:42 AM EST Bouchra Swartz CNP LAB BLOOD ORDERABLES Performing Organization Address City/[facility]/ZIP Co de Phone Number [address] [address] * XR Chest Portable (05/06/2019 7:18 AM [...] originally createdby Dr. Kong Zuleta. Bouchra Swartz [facility] IMG XR CHEST * XR ABDOMEN 1 [...] originally createdby Dr. Barak Raya. Bouchra Swartz SENIOR MANUFACTURING SUPERVISOR IMG XR ABDOMEN * Magnesium (05/06/2019 6:57 AM EST) MAGNESIUM 1.7 1.7 - 2.4 mg/dL [facility] Blood 05/06/2019 6:57 AM EST 05/06/2019 7:07 AM EST Marce Cole MD LAB BLOOD ORD ERABLES Performing Organization Address [facility] Co de Phone Number [address] [address] * (ABNORMAL) Basic metabolic panel (05/06/2019 6:57 AM EST) SODIUM 139 135 - 145 mmol/L [facility] POTASSIUM 4.0 3.4 - 5.0 mmol/L [facility] CHLORIDE 107 98 - 108 mmol/L [facility] CO2 22(L) 23 - 32 mmol/L [facility] BUN 9 8 - 25 mg/dL [facility] CREATININE 0.70 0.60 - 1.50 mg/dL [facility] GLUCOSE 146(H) 70 - 110 mg/dL [facility] CALCIUM 10.7(H) 8.5 - 10.5 mg/dL [facility] EGFR 118 >59 mL/min/1. 73m2 [facility] Comment:If patient is black, multiply result by 1.159. Estimated glomerular filtration rate calculated using the CKD-EPI equation. ANION GAP 10 3 - 17 mmol/L [facility] Blood 05/06/2019 6:57 AM EST 05/06/2019 7:07 AM EST Marce Cole MD LAB BLOOD ORD ERABLES Performing Organization Address City/[facility] Co de Phone Number [address] [address] * (ABNORMAL) CBC (05/06/2019 6:57 AM EST) WBC 2.83(L) 4.5 - 11.0 K/uL [facility] RBC 3.13(L) 4.00 - 5.20 M/uL [facility] HGB 9.4(L) 12.0 - 16.0 g/dL [facility] HCT 28.1(L) 36.0 - 46.0 % [facility] PLT 57(L) 150 - 400 K/uL [facility] MCV 89.8 80.0 - 100.0 fL [facility] MCH 30.0 26.0 - 34.0 pg [facility] MCHC 33.5 31.0 - 37.0 g/dL [facility] RDW 13.7 11.5 - 14.5 % [facility] MPV 9.2 8.4 - 12.0 fl [facility] NRBC 0.00 0 - 0.20 /100 WBCs [facility] ABSOLUTE NRBC 0.00 0 - 0.01 K/uL [facility] Blood 05/06/2019 6:57 AM EST 05/06/2019 7:06 AM EST Marce Cole MD LAB BLOOD ORD ERABLES Performing Organization Address [facility] Co de Phone Number [address] [address] * Fibrinogen (05/06/2019 5:36 AM EST) FIBRINOGEN 218 150 - 400 mg/dL [facility] Blood 05/06/2019 5:36 AM EST 05/06/2019 5:42 AM EST Jabari Guerrero MD LAB BLOOD ORDERAB LES Performing Organization Address [facility] Co de Phone Number [address] [address] * PTT (05/06/2019 5:36 AM EST) APTT 35.3 22.0 - 36.0 sec [facility] Comment: Due to new reagent, the standard PTT heparin therapeutic range has changed to 70-100 seconds (instead of 60-80 seconds). Check MAR for the target range that is ordered for your patient. Blood 05/06/2019 5:36 AM EST 05/06/2019 5:42 AM EST Jabari Guerrero MD LAB BLOOD ORDERAB LES Performing Organization Address City/[facility]/ZIP Co de Phone Number [address] [address] * (ABNORMAL) PT-INR (05/06/2019 5:36 AM EST) PT 16.6(H) 11.5 - 14.5 sec [facility] INR 1.4(H) 0.9 - 1.1 [facility] Blood 05/06/2019 5:36 AM EST 05/06/2019 5:42 AM EST Jabari Guerrero MD LAB BLOOD ORDERAB LES Performing Organization Address [facility] Co de Phone Number [address] [address] * Fibrinogen (05/06/2019 5:19 AM EST) FIBRINOGEN 202 150 - 400 mg/dL [facility] Blood 05/06/2019 5:19 AM EST 05/06/2019 5:26 AM EST Jabari Guerrero MD LAB BLOOD ORDERAB LES Performing Organization Address [facility] Co de Phone Number [address] [address] * (ABNORMAL) PTT (05/06/2019 5:19 AM EST) APTT 36.2(H) 22.0 - 36.0 sec [facility] Comment: Due to new reagent, the standard PTT heparin therapeutic range has changed to 70-100 seconds (instead of 60-80 seconds). Check MAR for the target range that is ordered for your patient. Blood 05/06/2019 5:19 AM EST 05/06/2019 5:26 AM EST Jabari Guerrero MD LAB BLOOD ORDERAB LES Performing Organization Address [facility] Co de Phone Number [address] [address] * (ABNORMAL) PT-INR (05/06/2019 5:19 AM EST) PT 17.7(H) 11.5 - 14.5 sec [facility] INR 1.5(H) 0.9 - 1.1 [facility] Blood 05/06/2019 5:19 AM EST 05/06/2019 5:26 AM EST Jabari Guerrero MD LAB BLOOD ORDERAB LES [address] [address] * (ABNORMAL) CBC (05/06/2019 5:19 AM EST) WBC 5.28 4.5 - 11.0 K/uL [facility] RBC 3.31(L) 4.00 - 5.20 M/uL [facility] HGB 10.1(L) 12.0 - 16.0 g/dL [facility] HCT 29.9(L) 36.0 - 46.0 % [facility] PLT 73(L) 150 - 400 K/uL [facility] MCV 90.3 80.0 - 100.0 fL [facility] MCH 30.5 26.0 - 34.0 pg [facility] MCHC 33.8 31.0 - 37.0 g/dL [facility] RDW 13.7 11.5 - 14.5 % [facility] MPV 9.3 8.4 - 12.0 fl [facility] NRBC 0.00 0 - 0.20 /100 WBCs [facility] ABSOLUTE NRBC 0.00 0 - 0.01 K/uL [facility] Blood 05/06/2019 5:19 AM EST 05/06/2019 5:25 AM EST Jabari Guerrero MD LAB BLOOD ORDERAB LES [address] [address] * (ABNORMAL) Lactate (blood gas) (05/06/2019 5:19 AM EST) Lactate, blood 3.0(H) 0.5 - 2.0 mmol/L [facility] Blood 05/06/2019 5:19 AM EST 05/06/2019 5:26 AM EST Jabari Guerrero MD LAB BLOOD ORDERAB LES Performing Organization Address [facility] Co de Phone Number [address] [address] * (ABNORMAL) Arterial blood gas PLUS (05/06/2019 5:19 AM EST) FIO2 UNSPEC. FIO2/L min [facility] PH 7.39 7.35 - 7.45 [facility] PCO2 35 35 - 42 mm[Hg] [facility] PO2 192(H) 80 - 100 mm[Hg] [facility] Base Excess, unspecified NEG 0.0 - 3.0 mmol/L [facility] Comment:3.7NEG HCO3, unspecified 21(L) 24 - 30 mmol/L [facility] SODIUM 138 135 - 145 mmol/L [facility] POTASSIUM 4.1 3.5 - 5.0 mmol/L [facility] IONIZED CALCIUM 0.87(L) 1.14 - 1.30 mmol/L [facility] Glucose, whole bld 178(H) 70 - 110 mg/dL [facility] HGB (BG) 10.4(L) 12.0 - 16.0 g/dl [facility] O2 Sat (SO2, arterial) 98.7 94.0 - 99.0 % [facility] Blood 05/06/2019 5:19 AM EST 05/06/2019 5:26 AM EST Jabari Guerrero MD LAB BLOOD ORDERAB LES Performing Organization Address City/[facility]/ZIP Co de Phone Number [address] [address] * Transfuse RBC (05/06/2019 4:45 AM EST) Marce Cole MD NURSING TREAT MENT ORDERABLES - BLOOD ADMIN Performing Organization Address City/[facility] Co de Phone Number [id number] * Transfuse RBC (05/06/2019 4:45 AM EST) Marce Cole MD NURSING TREAT MENT ORDERABLES - BLOOD ADMIN * (ABNORMAL) Basic metabolic panel (05/06/2019 4:33 AM EST) SODIUM 142 135 - 145 mmol/L [facility] POTASSIUM 4.6 3.4 - 5.0 mmol/L [facility] CHLORIDE 113(H) 98 - 108 mmol/L [facility] CO2 19(L) 23 - 32 mmol/L [facility] BUN 10 8 - 25 mg/dL [facility] CREATININE 0.54(L) 0.60 - 1.50 mg/dL [facility] GLUCOSE 229(H) 70 - 110 mg/dL [facility] CALCIUM 6.9(L) 8.5 - 10.5 mg/dL [facility] EGFR >120 >59 mL/min/1. 73m2 [facility] Comment:If patient is black, multiply result by 1.159. Estimated glomerular filtration rate calculated using the CKD-EPI equation. ANION GAP 10 3 - 17 mmol/L [facility] Blood 05/06/2019 4:33 AM EST 05/06/2019 4:39 AM EST Marce Cole MD LAB BLOOD ORD ERABLES Performing Organization Address City/[facility] Co de Phone Number [address] [address] * (ABNORMAL) Fibrinogen (05/06/2019 4:33 AM EST) FIBRINOGEN 118(L) 150 - 400 mg/dL [facility] Blood 05/06/2019 4:33 AM EST 05/06/2019 4:39 AM EST Marce Cole MD LAB BLOOD ORD ERABLES Performing Organization Address [facility] Co de Phone Number [address] [address] * (ABNORMAL) PTT (05/06/2019 4:33 AM EST) APTT 40.2(H) 22.0 - 36.0 sec [facility] Comment: Due to new reagent, the standard PTT heparin therapeutic range has changed to 70-100 seconds (instead of 60-80 seconds). Check MAR for the target range that is ordered for your patient. Blood 05/06/2019 4:33 AM EST 05/06/2019 4:39 AM EST Marce Cole MD LAB BLOOD ORD ERABLES Performing Organization Address City/[facility]/ZIP Co de Phone Number [address] [address] * (ABNORMAL) PT-INR (05/06/2019 4:33 AM EST) PT 23.8(H) 11.5 - 14.5 sec [facility] INR 2.1(H) 0.9 - 1.1 [facility] Blood 05/06/2019 4:33 AM EST 05/06/2019 4:39 AM EST Marce Cole MD LAB BLOOD ORD ERABLES Performing Organization Address [facility] Co de Phone Number [address] [address] * (ABNORMAL) CBC (05/06/2019 4:33 AM EST) WBC 7.70 4.5 - 11.0 K/uL [facility] RBC 3.27(L) 4.00 - 5.20 M/uL [facility] HGB 10.1(L) 12.0 - 16.0 g/dL [facility] HCT 30.0(L) 36.0 - 46.0 % [facility] PLT 62(L) 150 - 400 K/uL [facility] MCV 91.7 80.0 - 100.0 fL [facility] MCH 30.9 26.0 - 34.0 pg [facility] MCHC 33.7 31.0 - 37.0 g/dL [facility] RDW 13.5 11.5 - 14.5 % [facility] MPV 10.3 8.4 - 12.0 fl [facility] NRBC 0.00 0 - 0.20 /100 WBCs [facility] ABSOLUTE NRBC 0.00 0 - 0.01 K/uL [facility] Blood 05/06/2019 4:33 AM EST 05/06/2019 4:40 AM EST Marce Cole MD LAB BLOOD ORD ERABLES Performing Organization Address City/[facility]/ZIP Co de Phone Number [address] [address] * (ABNORMAL) Lactate (blood gas) (05/06/2019 4:33 AM EST) Lactate, blood 3.7(H) 0.5 - 2.0 mmol/L [facility] Blood 05/06/2019 4:33 AM EST 05/06/2019 4:40 AM EST Marce Cole MD LAB BLOOD ORD ERABLES Performing Organization Address [facility] Co de Phone Number [address] [address] * (ABNORMAL) Arterial blood gas PLUS (05/06/2019 4:33 AM EST) FIO2 UNSPEC. FIO2/L min [facility] PH 7.23(L) 7.35 - 7.45 [facility] PCO2 47(H) 35 - 42 mm[Hg] [facility] PO2 515(H) 80 - 100 mm[Hg] [facility] Base Excess, unspecified NEG 0.0 - 3.0 mmol/L [facility] Comment:7.9NEG HCO3, unspecified 19(L) 24 - 30 mmol/L [facility] SODIUM 136 135 - 145 mmol/L [facility] POTASSIUM 4.2 3.5 - 5.0 mmol/L [facility] IONIZED CALCIUM 0.98(L) 1.14 - 1.30 mmol/L [facility] Glucose, whole bld 202(H) 70 - 110 mg/dL [facility] HGB (BG) 10.8(L) 12.0 - 16.0 g/dl [facility] Comment:RESULT VERIFIED O2 Sat (SO2, arterial) 99.2(H) 94.0 - 99.0 % [facility] Blood 05/06/2019 4:33 AM EST 05/06/2019 4:40 AM EST Marce Cole MD LAB BLOOD ORD ERABLES Performing Organization Address City/[facility] Co de Phone Number [address] [address] * (ABNORMAL) Lactate (05/06/2019 3:14 AM EST) LACTIC ACID (MMOL/L) 2.8(H) 0.5 - 2.0 mmol/L [facility] Blood 05/06/2019 3:14 AM EST 05/06/2019 3:22 AM EST Marce Cole MD LAB BLOOD ORD ERABLES [facility] [address] [place] [address] * (ABNORMAL) CBC (05/06/2019 3:14 AM EST) WBC 6.85 4.5 - 11.0 K/uL [facility] RBC 1.98(L) 4.00 - 5.20 M/uL [facility] HGB 6.2(L) 12.0 - 16.0 g/dL [facility] HCT 18.6(LL) 36.0 - 46.0 % [facility] PLT 119(L) 150 - 400 K/uL [facility] MCV 93.9 80.0 - 100.0 fL [facility] MCH 31.3 26.0 - 34.0 pg [facility] MCHC 33.3 31.0 - 37.0 g/dL [facility] RDW 12.7 11.5 - 14.5 % [facility] MPV 10.0 8.4 - 12.0 fl [facility] NRBC 0.00 0 - 0.20 /100 WBCs [facility] ABSOLUTE NRBC 0.00 0 - 0.01 K/uL [facility] Blood 05/06/2019 3:14 AM EST 05/06/2019 3:22 AM EST Marce Cole MD LAB BLOOD ORD ERABLES [address] [address] * (ABNORMAL) Lactate (05/06/2019 1:25 AM EST) LACTIC ACID (MMOL/L) 5.9(H) 0.5 - 2.0 mmol/L [facility] Blood 05/06/2019 1:25 AM EST 05/06/2019 1:47 AM EST Marce Cole MD LAB BLOOD ORD ERABLES Performing Organization Address [facility] de Phone Number [address] [address] * CBC (05/06/2019 1:25 AM EST) WBC Refused 4.5 - 11.0 K/uL [facility] Comment:Clotted Specimen RBC Refused 4.00 - 5.20 M/uL [facility] Comment:Clotted Specimen HGB Refused 12.0 - 16.0 g/dL [facility] Comment:Clotted Specimen HCT Refused 36.0 - 46.0 % [facility] Comment:Clotted Specimen PLT Refused 150 - 400 K/uL [facility] Comment:Clotted Specimen MCV Refused 80.0 - 100.0 fL [facility] Comment:Clotted Specimen MCH Refused 26.0 - 34.0 pg [facility] Comment:Clotted Specimen MCHC Refused 31.0 - 37.0 g/dL [facility] Comment:Clotted Specimen RDW Refused 11.5 - 14.5 % [facility] Comment:Clotted Specimen MPV Refused 8.4 - 12.0 fl [facility] Comment:Clotted Specimen NRBC Refused 0 - 0.20 /100 WBCs [facility] Comment:Clotted Specimen ABSOLUTE NRBC Refused 0 - 0.01 K/uL [facility] Comment:Clotted Specimen Blood 05/06/2019 1:25 AM EST 05/06/2019 1:42 AM EST Marce Cole MD LAB BLOOD ORD ERABLES Performing Organization Address [facility] Co de Phone Number [address] [address] * MRSA nasal screen (05/06/2019 1:25 AM EST) Special Requests No Special Requests 05/06/2019 1:25 AM EST [facility] MRSA Nasal Culture NEGATIVE FOR MRSA 05/07/2019 10:13 AM EST [facility] Other (Nasal) 05/06/2019 1:2 5 AM EST 05/06/2019 3:13 AM EST Marce Cole MD MICROBIOLOGY - GENERAL ORDERABLES [address] [address] * Vancomycin resistant Enterococci (VRE) rectal screen (05/06/2019 1:25 AM EST) Special Requests No Special Requests 05/06/2019 1:25 AM EST [facility] VRE Rectal Culture NEGATIVE FOR VRE 05/07/2019 8:06 AM EST [facility] Other (Rectal) 05/06/2019 1: 25 AM EST 05/06/2019 3:13 AM EST Marce Cole MD MICROBIOLOGY - GENERAL ORDERABLES Performing Organization Address [facility] Co de Phone Number [address] [address] * Transfuse RBC (05/06/2019 12:24 AM EST) Sal Shaw MD, MBA NURSING TREATMENT OR DERABLES - BLOOD ADMIN Performing Organization Address [facility] Co de Phone Number [email or web address] * Transfuse RBC (05/06/2019 12:24 AM EST) Sal Shaw MD, MBA NURSING TREATMENT OR DERABLES - BLOOD ADMIN * Lactate (05/06/2019 12:15 AM EST) LACTIC ACID (MMOL/L) 1.5 0.5 - 2.0 mmol/L [facility] Blood 05/06/2019 12:1 5 AM EST 05/06/2019 12:21 AM EST Marce Cole MD LAB BLOOD ORD ERABLES Performing Organization Address [facility]/ZIP Co de Phone Number [address] [address] * (ABNORMAL) VENOUS BLOOD GAS PLUS (05/06/2019 12:11 AM EST) FIO2 0.98 FIO2/L min [facility] PH 7.32 7.30 - 7.40 [facility] PCO2 43 38 - 50 mm[Hg] [facility] PO2 73(H) 35 - 50 mm[Hg] [facility] Base Excess, unspecified NEG 0.0 - 3.0 mmol/L [facility] Comment:4.2NEG HCO3, unspecified 22(L) 24 - 30 mmol/L [facility] SODIUM 137 135 - 145 mmol/L [facility] POTASSIUM 3.9 3.5 - 5.0 mmol/L [facility] IONIZED CALCIUM 1.20 1.14 - 1.30 mmol/L [facility] Glucose, whole bld 144(H) 70 - 110 mg/dL [facility] HGB (BG) 8.8(L) 12.0 - 16.0 g/dl [facility] Comment:RESULT VERIFIED SO2-VENOUS (SO2, venous) 94.2(H) 60.0 - 85.0 % [facility] Blood 05/06/2019 12:1 1 AM EST 05/06/2019 12:17 AM EST Marce Cole MD LAB BLOOD ORD ERABLES Performing Organization Address [facility] Co de Phone Number [address] [address] * (ABNORMAL) PT-INR (05/06/2019 12:11 AM EST) PT 18.1(H) 11.5 - 14.5 sec [facility] INR 1.5(H) 0.9 - 1.1 [facility] Blood 05/06/2019 12:1 1 AM EST 05/06/2019 12:17 AM EST Marce Cole MD LAB BLOOD ORD ERABLES Performing Organization Address [facility] Co de Phone Number [address] [address] * PTT (05/06/2019 12:11 AM EST) APTT 27.7 22.0 - 36.0 sec [facility] Comment: Due to new reagent, the standard PTT heparin therapeutic range has changed to 70-100 seconds (instead of 60-80 seconds). Check MAR for the target range that is ordered for your patient. Blood 05/06/2019 12:1 1 AM EST 05/06/2019 12:17 AM EST Marce Cole MD LAB BLOOD ORD ERABLES [address] [address] * (ABNORMAL) Magnesium (05/06/2019 12:01 AM EST) MAGNESIUM 2.5(H) 1.7 - 2.4 mg/dL [facility] 05/06/2019 12:0 1 AM EST 05/06/2019 12:19 AM EST Marce Cole MD LAB BLOOD ORD ERABLES Performing Organization Address City/[facility]/ZIP Co de Phone Number [address] [address] * (ABNORMAL) Basic metabolic panel (05/06/2019 12:01 AM EST) SODIUM 142 135 - 145 mmol/L [facility] POTASSIUM 4.2 3.4 - 5.0 mmol/L [facility] CHLORIDE 108 98 - 108 mmol/L [facility] CO2 21(L) 23 - 32 mmol/L [facility] BUN 10 8 - 25 mg/dL [facility] CREATININE 0.68 0.60 - 1.50 mg/dL [facility] GLUCOSE 157(H) 70 - 110 mg/dL [facility] CALCIUM 8.8 8.5 - 10.5 mg/dL [facility] EGFR 119 >59 mL/min/1. 73m2 [facility] Comment:If patient is black, multiply result by 1.159. Estimated glomerular filtration rate calculated using the CKD-EPI equation. ANION GAP 13 3 - 17 mmol/L [facility] 05/06/2019 12:0 1 AM EST 05/06/2019 12:19 AM EST Marce Cole MD LAB BLOOD ORD ERABLES [address] [address] * (ABNORMAL) CBC (05/06/2019 12:01 AM EST) WBC 6.61 4.5 - 11.0 K/uL [facility] RBC 2.70(L) 4.00 - 5.20 M/uL [facility] HGB 8.6(L) 12.0 - 16.0 g/dL [facility] HCT 25.4(L) 36.0 - 46.0 % [facility] PLT 149(L) 150 - 400 K/uL [facility] MCV 94.1 80.0 - 100.0 fL [facility] MCH 31.9 26.0 - 34.0 pg [facility] MCHC 33.9 31.0 - 37.0 g/dL [facility] RDW 12.5 11.5 - 14.5 % [facility] MPV 9.8 8.4 - 12.0 fl [facility] NRBC 0.00 0 - 0.20 /100 WBCs [facility] ABSOLUTE NRBC 0.00 0 - 0.01 K/uL [facility] 05/06/2019 12:0 1 AM EST 05/06/2019 12:18 AM EST Marce Cole MD LAB BLOOD ORD ERABLES [address] [address] * Transfuse RBC (05/05/2019 10:20 PM EST) Sal Shaw MD, MBA NURSING TREATMENT OR DERABLES - BLOOD ADMIN [employer] * Transfuse RBC (05/05/2019 10:20 PM EST) Sal Shaw MD, MBA NURSING TREATMENT OR DERABLES - BLOOD ADMIN * Prepare RBC (05/05/2019 9:51 PM EST) Product Code [id number] 05/07/2019 4:35 AM EST [facility] Unit Number [id number] 05/07/19 20 4:35 AM EST [facility] Crossmatch Interpretation Compatible 05/05/2019 10:13 PM EST [facility] Product Status Issued, Final 020 4:35 AM EST [facility] ABO/Rh of Unit APOS 05/07/2019 4:35 AM EST [facility] Expiration Date/Time [id number] 05/07/2019 4:35 AM EST [facility] Unit Barcode 6200 05/07/2019 4:35 AM EST [facility] 05/05/2019 9:51 PM EST 05/05/2019 10:06 AM EST Marce Cole MD BLOOD BANK SD ODUCT ORDERABLES [address] [address] * (ABNORMAL) Magnesium (05/05/2019 8:30 PM EST) MAGNESIUM 1.5(L) 1.7 - 2.4 mg/dL [facility] Blood 05/05/2019 8:30 PM EST 05/05/2019 8:34 PM EST Marylou Markham CNP LAB BLOOD ORDERABLES Performing Organization Address City/[facility] Co de Phone Number [address] [address] * (ABNORMAL) Basic metabolic panel (05/05/2019 8:30 PM EST) SODIUM 144 135 - 145 mmol/L [facility] POTASSIUM 4.4 3.4 - 5.0 mmol/L [facility] CHLORIDE 106 98 - 108 mmol/L [facility] CO2 22(L) 23 - 32 mmol/L [facility] BUN 8 8 - 25 mg/dL [facility] CREATININE 0.63 0.60 - 1.50 mg/dL [facility] GLUCOSE 123(H) 70 - 110 mg/dL [facility] CALCIUM 8.2(L) 8.5 - 10.5 mg/dL [facility] EGFR >120 >59 mL/min/1. 73m2 [facility] Comment:If patient is black, multiply result by 1.159. Estimated glomerular filtration rate calculated using the CKD-EPI equation. ANION GAP 16 3 - 17 mmol/L [facility] Blood 05/05/2019 8:30 PM EST 05/05/2019 8:34 PM EST Marylou Markham CNP LAB BLOOD ORDERABLES [address] [address] * (ABNORMAL) VENOUS BLOOD GAS PLUS (05/05/2019 8:30 PM EST) FIO2 UNSPEC. FIO2/L min [facility] PH 7.41(H) 7.30 - 7.40 [facility] PCO2 37(L) 38 - 50 mm[Hg] [facility] PO2 58(H) 35 - 50 mm[Hg] [facility] Base Excess, unspecified NEG 0.0 - 3.0 mmol/L [facility] Comment:1.2NEG HCO3, unspecified 23(L) 24 - 30 mmol/L [facility] SODIUM 137 135 - 145 mmol/L [facility] POTASSIUM 4.1 3.5 - 5.0 mmol/L [facility] IONIZED CALCIUM 1.03(L) 1.14 - 1.30 mmol/L [facility] Glucose, whole bld 118(H) 70 - 110 mg/dL [facility] HGB (BG) 6.0(LL) 12.0 - 16.0 g/dl [facility] Comment:RESULT VERIFIED SO2-VENOUS (SO2, venous) 91.8(H) 60.0 - 85.0 % [facility] Blood 05/05/2019 8:30 PM EST 05/05/2019 8:33 PM EST Sal Shaw MD, BERNARD LAB BLOOD ORDERABLES [facility] [address] [place] [address] * (ABNORMAL) CBC (05/05/2019 8:30 PM EST) WBC 7.15 4.5 - 11.0 K/uL [facility] RBC 1.90(L) 4.00 - 5.20 M/uL [facility] HGB 6.0(L) 12.0 - 16.0 g/dL [facility] HCT 17.6(LL) 36.0 - 46.0 % [facility] PLT 183 150 - 400 K/uL [facility] MCV 92.6 80.0 - 100.0 fL [facility] MCH 31.6 26.0 - 34.0 pg [facility] MCHC 34.1 31.0 - 37.0 g/dL [facility] RDW 12.3 11.5 - 14.5 % [facility] MPV 9.5 8.4 - 12.0 fl [facility] NRBC 0.00 0 - 0.20 /100 WBCs [facility] ABSOLUTE NRBC 0.00 0 - 0.01 K/uL [facility] Blood 05/05/2019 8:30 PM EST 05/05/2019 8:34 PM EST Sal Shaw MD, MBA LAB BLOOD ORDERABLES Performing Organization Address [facility] Co de Phone Number [address] [address] * (ABNORMAL) Magnesium (05/05/2019 7:57 PM EST) MAGNESIUM 1.3(L) 1.7 - 2.4 mg/dL [facility] Blood 05/05/2019 7:57 PM EST 05/05/2019 8:05 PM EST Marce Cole MD LAB BLOOD ORD ERABLES Performing Organization Address [facility] Co de Phone Number [address] [address] * (ABNORMAL) CBC (05/05/2019 7:57 PM EST) WBC 5.84 4.5 - 11.0 K/uL [facility] RBC 1.72(L) 4.00 - 5.20 M/uL [facility] HGB 5.4(L) 12.0 - 16.0 g/dL [facility] HCT 15.9(LL) 36.0 - 46.0 % [facility] PLT 130(L) 150 - 400 K/uL [facility] MCV 92.4 80.0 - 100.0 fL [facility] MCH 31.4 26.0 - 34.0 pg [facility] MCHC 34.0 31.0 - 37.0 g/dL [facility] RDW 12.6 11.5 - 14.5 % [facility] MPV 11.0 8.4 - 12.0 fl [facility] NRBC 0.00 0 - 0.20 /100 WBCs [facility] ABSOLUTE NRBC 0.00 0 - 0.01 K/uL [facility] Blood 05/05/2019 7:57 PM EST 05/05/2019 8:04 PM EST Marce Cole MD LAB BLOOD ORD ERABLES Performing Organization Address City/[facility] Co de Phone Number [address] [address] * (ABNORMAL) Basic metabolic panel (05/05/2019 7:57 PM EST) SODIUM 142 135 - 145 mmol/L [facility] POTASSIUM 4.9 3.4 - 5.0 mmol/L [facility] Comment:Hemolysis present, r esult falsely increased. CHLORIDE 107 98 - 108 mmol/L [facility] CO2 21(L) 23 - 32 mmol/L [facility] BUN 8 8 - 25 mg/dL [facility] CREATININE 0.63 0.60 - 1.50 mg/dL [facility] GLUCOSE 105 70 - 110 mg/dL [facility] CALCIUM 7.5(L) 8.5 - 10.5 mg/dL [facility] EGFR >120 >59 mL/min/1. 73m2 [facility] Comment:If patient is black, multiply result by 1.159. Estimated glomerular filtration rate calculated using the CKD-EPI equation. ANION GAP 14 3 - 17 mmol/L [facility] Blood 05/05/2019 7:57 PM EST 05/05/2019 8:05 PM EST Marce Cole MD LAB BLOOD ORD ERABLES Performing Organization Address [facility] Co de Phone Number [address] [address] * (ABNORMAL) Lactate (05/05/2019 5:46 PM EST) LACTIC ACID (MMOL/L) 2.3(H) 0.5 - 2.0 mmol/L [facility] Blood 05/05/2019 5:46 PM EST 05/05/2019 5:55 PM EST Marylou Markham CNP LAB BLOOD ORDERABLES Performing Organization Address City/[facility]/ZIP Co de Phone Number [address] [address] * PTT (05/05/2019 5:46 PM EST) APTT 22.9 22.0 - 36.0 sec [facility] Comment: Due to new reagent, the standard PTT heparin therapeutic range has changed to 70-100 seconds (instead of 60-80 seconds). Check MAR for the target range that is ordered for your patient. Blood 05/05/2019 5:46 PM EST 05/05/2019 5:55 PM EST Marylou Markham [employer]URING SUPERVISOR LAB BLOOD ORDERABLES Performing Organization Address [facility] Co de Phone Number [address] [address] * (ABNORMAL) PT-INR (05/05/2019 5:46 PM EST) PT 16.3(H) 11.5 - 14.5 sec [facility] INR 1.3(H) 0.9 - 1.1 [facility] Blood 05/05/2019 5:46 PM EST 05/05/2019 5:55 PM EST Marylou Markham SENIOR MANUFACTURING SUPERVISOR LAB BLOOD ORDERABLES Performing Organization Address [facility] Co de Phone Number [address] [address] * (ABNORMAL) CBC (05/05/2019 5:46 PM EST) WBC 7.25 4.5 - 11.0 K/uL [facility] RBC 2.54(L) 4.00 - 5.20 M/uL [facility] HGB 8.0(L) 12.0 - 16.0 g/dL [facility] HCT 24.3(L) 36.0 - 46.0 % [facility] PLT 200 150 - 400 K/uL [facility] MCV 95.7 80.0 - 100.0 fL [facility] MCH 31.5 26.0 - 34.0 pg [facility] MCHC 32.9 31.0 - 37.0 g/dL [facility] RDW 12.2 11.5 - 14.5 % [facility] MPV 9.8 8.4 - 12.0 fl [facility] NRBC 0.00 0 - 0.20 /100 WBCs [facility] ABSOLUTE NRBC 0.00 0 - 0.01 K/uL [facility] Blood 05/05/2019 5:46 PM EST 05/05/2019 5:54 PM EST Marylou Markham CNP LAB BLOOD ORDERABLES Performing Organization Address City/[facility] Co de Phone Number [address] [address] * (ABNORMAL) Magnesium (05/05/2019 5:46 PM EST) MAGNESIUM 1.5(L) 1.7 - 2.4 mg/dL [facility] Blood 05/05/2019 5:46 PM EST 05/05/2019 5:54 PM EST Marylou Markham CNP LAB BLOOD ORDERABLES Performing Organization Address [facility] Phone Number [address] [address] * (ABNORMAL) Basic metabolic panel (05/05/2019 5:46 PM EST) SODIUM 144 135 - 145 mmol/L [facility] POTASSIUM 4.0 3.4 - 5.0 mmol/L [facility] CHLORIDE 107 98 - 108 mmol/L [facility] CO2 23 23 - 32 mmol/L [facility] BUN 8 8 - 25 mg/dL [facility] CREATININE 0.72 0.60 - 1.50 mg/dL [facility] GLUCOSE 182(H) 70 - 110 mg/dL [facility] CALCIUM 8.1(L) 8.5 - 10.5 mg/dL [facility] EGFR 114 >59 mL/min/1. 73m2 [facility] Comment:If patient is black, multiply result by 1.159. Estimated glomerular filtration rate calculated using the CKD-EPI equation. ANION GAP 14 3 - 17 mmol/L [facility] Blood 05/05/2019 5:46 PM EST 05/05/2019 5:54 PM EST Marylou Markham CNP LAB BLOOD ORDERABLES Performing Organization Address [facility] Co de Phone Number [address] [address] * PTT (05/05/2019 3:51 PM EST) APTT 28.9 22.0 - 36.0 sec [facility] Comment: Due to new reagent, the standard PTT heparin therapeutic range has changed to 70-100 seconds (instead of 60-80 seconds). Check MAR for the target range that is ordered for your patient. Blood 05/05/2019 3:51 PM EST 05/05/2019 4:31 PM EST Marce Cole MD LAB BLOOD ORD ERABLES Performing Organization Address [facility] Co de Phone Number [address] [address] * (ABNORMAL) PT-INR (05/05/2019 3:51 PM EST) PT 18.5(H) 11.5 - 14.5 sec [facility] INR 1.5(H) 0.9 - 1.1 [facility] Blood 05/05/2019 3:51 PM EST 05/05/2019 4:31 PM EST Marce Cole MD LAB BLOOD ORD ERABLES Performing Organization Address [facility] Co de Phone Number [address] [address] * (ABNORMAL) Magnesium (05/05/2019 3:51 PM EST) MAGNESIUM 1.0(LL) 1.7 - 2.4 mg/dL [facility] Blood 05/05/2019 3:51 PM EST 05/05/2019 4:32 PM EST Marce Cole MD LAB BLOOD ORD ERABLES Performing Organization Address City/[facility] Co de Phone Number [address] [address] * (ABNORMAL) Basic metabolic panel (05/05/2019 3:51 PM EST) SODIUM 145 135 - 145 mmol/L [facility] POTASSIUM 3.4 3.4 - 5.0 mmol/L [facility] CHLORIDE 113(H) 98 - 108 mmol/L [facility] CO2 17(L) 23 - 32 mmol/L [facility] BUN 6(L) 8 - 25 mg/dL [facility] CREATININE 0.43(L) 0.60 - 1.50 mg/dL [facility] GLUCOSE 119(H) 70 - 110 mg/dL [facility] CALCIUM 6.4(LL) 8.5 - 10.5 mg/dL [facility] EGFR >120 >59 mL/min/1. 73m2 [facility] Comment:If patient is black, multiply result by 1.159. Estimated glomerular filtration rate calculated using the CKD-EPI equation. ANION GAP 15 3 - 17 mmol/L [facility] Blood 05/05/2019 3:51 PM EST 05/05/2019 4:32 PM EST Glenvil Trey Cole MD LAB BLOOD ORD ERABLES [facility] [address] [place] [address] * (ABNORMAL) CBC and differential (05/05/2019 3:51 PM EST) WBC 5.46 4.5 - 11.0 K/uL [facility] RBC 2.30(L) 4.00 - 5.20 M/uL [facility] HGB 7.2(L) 12.0 - 16.0 g/dL [facility] HCT 21.7(L) 36.0 - 46.0 % [facility] PLT 139(L) 150 - 400 K/uL [facility] MCV 94.3 80.0 - 100.0 fL [facility] MCH 31.3 26.0 - 34.0 pg [facility] MCHC 33.2 31.0 - 37.0 g/dL [facility] RDW 12.4 11.5 - 14.5 % [facility] MPV 9.1 8.4 - 12.0 fl [facility] NRBC 0.00 0 - 0.20 /100 WBCs [facility] ABSOLUTE NRBC 0.00 0 - 0.01 K/uL [facility] DIFF METHOD Auto [facility] NEUTS 80.7(H) 40 - 70 % [facility] LYMPHS 10.3(L) 22 - 44 % [facility] MONOS 8.6 4 - 11 % [facility] EOS 0.0 0 - 8 % [facility] BASOS 0.0 0 - 3 % [facility] % IMMATURE GRANS 0.4 0.0 - 0.9 % [facility] ABSOLUTE NEUTS 4.41 1.8 - 7.7 K/uL [facility] ABSOLUTE LYMPHS 0.56(L) 1.0 - 4.8 K/uL [facility] ABSOLUTE MONOS 0.47 0.2 - 1.2 K/uL [facility] ABSOLUTE EOS 0.00 0.0 - 0.9 K/uL [facility] ABSOLUTE BASOS 0.00 0.0 - 0.3 K/uL [facility] ABS IMMATURE GRANS 0.02 0.00 - 0.10 K/uL [facility] Blood 05/05/2019 3:51 PM EST 05/05/2019 4:34 PM EST Marce Cole MD LAB BLOOD ORD ERABLES Performing Organization Address [facility] Co de Phone Number [address] [address] * (ABNORMAL) Lactate (blood gas) (05/05/2019 3:12 PM EST) Lactate, blood 3.1(H) 0.5 - 2.0 mmol/L [facility] Blood 05/05/2019 3:12 PM EST 05/05/2019 3:23 PM EST Magen Garza MD LAB BLOOD ORDERABLES Performing Organization Address [facility] Co de Phone Number [address] [phone] * (ABNORMAL) VENOUS BLOOD GAS PLUS (05/05/2019 3:12 PM EST) FIO2 UNSPEC. FIO2/L min [facility] PH 7.27(L) 7.30 - 7.40 [facility] PCO2 48 38 - 50 mm[Hg] [facility] PO2 45 35 - 50 mm[Hg] [facility] Base Excess, unspecified NEG 0.0 - 3.0 mmol/L [facility] Comment:5.3NEG HCO3, unspecified 21(L) 24 - 30 mmol/L [facility] SODIUM 140 135 - 145 mmol/L [facility] POTASSIUM 3.1(L) 3.5 - 5.0 mmol/L [facility] IONIZED CALCIUM 0.99(L) 1.14 - 1.30 mmol/L [facility] Glucose, whole bld 132(H) 70 - 110 mg/dL [facility] HGB (BG) 8.7(L) 12.0 - 16.0 g/dl [facility] SO2-VENOUS (SO2, venous) 70.8 60.0 - 85.0 % [facility] Blood 05/05/2019 3:12 PM EST 05/05/2019 3:23 PM EST Magen Garza MD LAB BLOOD ORDERABLES Performing Organization Address City/[facility]/ZIP Co de Phone Number [address] [address] * (ABNORMAL) Lactate (blood gas) (05/05/2019 2:09 PM EST) Lactate, blood 6.1(H) 0.5 - 2.0 mmol/L [facility] Comment:RESULT VERIFIED 05/05/2019 2:09 PM EST 05/05/2019 2:37 PM EST Vane Mejia CRNA LAB BLOOD OR DERABLES Performing Organization Address [facility] Co de Phone Number [address] [address] * (ABNORMAL) VENOUS BLOOD GAS PLUS (05/05/2019 2:09 PM EST) FIO2 UNSPEC. FIO2/L min [facility] PH 7.27(L) 7.30 - 7.40 [facility] PCO2 36(L) 38 - 50 mm[Hg] [facility] PO2 39 35 - 50 mm[Hg] [facility] Base Excess, unspecified NEG 0.0 - 3.0 mmol/L [facility] Comment:9.8NEG HCO3, unspecified 16(L) 24 - 30 mmol/L [facility] SODIUM 137 135 - 145 mmol/L [facility] POTASSIUM 3.8 3.5 - 5.0 mmol/L [facility] IONIZED CALCIUM 0.93(L) 1.14 - 1.30 mmol/L [facility] Glucose, whole bld 94 70 - 110 mg/dL [facility] HGB (BG) 9.4(L) 12.0 - 16.0 g/dl [facility] SO2-VENOUS (SO2, venous) 61.2 60.0 - 85.0 % [facility] Blood 05/05/2019 2:09 PM EST 05/05/2019 2:37 PM EST Magen Garza MD LAB BLOOD ORDERABLES Performing Organization Address [facility] de Phone Number [address] [address] * (ABNORMAL) Basic metabolic panel (05/05/2019 10:05 AM EST) SODIUM 142 135 - 145 mmol/L [facility] POTASSIUM 4.3 3.4 - 5.0 mmol/L [facility] Comment:Hemolysis present, r esult falsely increased. CHLORIDE 103 98 - 108 mmol/L [facility] CO2 21(L) 23 - 32 mmol/L [facility] BUN 7(L) 8 - 25 mg/dL [facility] CREATININE 0.72 0.60 - 1.50 mg/dL [facility] GLUCOSE 95 70 - 110 mg/dL [facility] CALCIUM 9.5 8.5 - 10.5 mg/dL [facility] EGFR 114 >59 mL/min/1.7 3m2 [facility] Comment:If patient is black, multiply result by 1.159. Estimated glomerular filtration rate calculated using the CKD-EPI equation. ANION GAP 18(H) 3 - 17 mmol/L [facility] Blood 05/05/2019 10:0 5 AM EST 05/05/2019 10:15 AM EST Marce Cole MD LAB BLOOD ORD ERABLES Performing Organization Address [facility] Co de Phone Number [address] [address] * PTT (05/05/2019 10:05 AM EST) APTT 26.6 22.0 - 36.0 sec [facility] Comment: Due to new reagent, the standard PTT heparin therapeutic range has changed to 70-100 seconds (instead of 60-80 seconds). Check MAR for the target range that is ordered for your patient. Blood 05/05/2019 10:0 5 AM EST 05/05/2019 10:15 AM EST Marce Cole MD LAB BLOOD ORD ERABLES Performing Organization Address City/[facility]/ZIP Co de Phone Number [address] [address] * PT-INR (05/05/2019 10:05 AM EST) PT 13.3 11.5 - 14.5 sec [facility] INR 1.0 0.9 - 1.1 [facility] Blood 05/05/2019 10:0 5 AM EST 05/05/2019 10:15 AM EST Marce Cole MD LAB BLOOD ORD ERABLES Performing Organization Address City/[facility] Co de Phone Number [address] [address] * CBC (05/05/2019 10:05 AM EST) WBC 8.83 4.5 - 11.0 K/uL [facility] RBC 4.13 4.00 - 5.20 M/uL [facility] HGB 12.8 12.0 - 16.0 g/dL [facility] HCT 37.5 36.0 - 46.0 % [facility] PLT 246 150 - 400 K/uL [facility] MCV 90.8 80.0 - 100.0 fL [facility] MCH 31.0 26.0 - 34.0 pg [facility] MCHC 34.1 31.0 - 37.0 g/dL [facility] RDW 12.2 11.5 - 14.5 % [facility] MPV 9.9 8.4 - 12.0 fl [facility] NRBC 0.00 0 - 0.20 /100 WBCs [facility] ABSOLUTE NRBC 0.00 0 - 0.01 K/uL [facility] Blood 05/05/2019 10:0 5 AM EST 05/05/2019 10:16 AM EST Marce Cole MD LAB BLOOD ORD ERABLES Performing Organization Address City/[facility]/ZIP Co de Phone Number [address] [address] * Type and Screen (ABO,Rh,Antibody Screen) (05/05/2019 8:52 AM EST) Expiration Date of Sample 05/08/2019 11:59 PM ABO A 05/05/2019 10:35 AM EST [facility] Rh Positive 05/05/2019 10:35 AM EST [facility] Resulting Agency [facility] Antibody Screen Negative 05/05/2019 10:54 AM EST [facility] Blood 05/05/2019 8:52 AM EST 05/05/2019 10:06 AM EST Marce Cole MD BLOOD BANK TE ST ORDERABLES Performing Organization Address City/[facility] Co de Phone Number [address] [address] * HCG, urine (05/05/2019 8:02 AM EST) URINE TEST Negative Negative [facility] Urine (Urine) 05/05/2019 8:0 2 AM EST 05/05/2019 8:27 AM EST Marce Cole MD URINE ORDERAB LES Performing Organization Address City/[facility] Co de Phone Number [address] [address] * Anatomic Pathology (05/05/2019 12:00 AM EST) 05/05/2019 05/05/2019 4:0 2 PM EST Narrative SEE NARRATIVE - 05/12/2019 10:57 AM EST [address] [address] ? Surgical Pathology Report Patient Name: MARYLOU HERNANDEZ : 1990 (Age: 28) Sex: F Location: [facility]IOP Institution: [facility] Date of Operation: 05/05/2019 Date of Reported: [...] consistent with a reactive lymphoid infiltrate. A event sales representative slide of endomyometrium was reviewed by [...] Received fresh are 4 containers labeled Marylou Hernandez and . A. LYMPH NODE DISSECTION, LEFT [...] reveal stellate lumen. Gross photographs are taken. ??Caddy Packer sections are submitted as follows: C1: Right paracervical tissue margin, event sales representative C2: Left paracervical tissue margin, event sales representative C3-C5: Cervix, 3:00 to 6:00 to include the surface defect in C4 C6-C9: Cervix, 6:00 to 9:00 C10-C 12: Cervix, 9:00 to 12:00 C13-C 15: Cervix, 12:00 to 3:00 C16: Anterior lower uterine segment, event sales representative C17: Posterior lower uterine segment, event sales representative C18-C19: Anterior endomyometrium, full-thickness in each [...] Immunohistochemical and in-situ hybridization tests performed at [facility] have been developed and their performance characteristics determined by the Immunohistochemistry Laboratories in the Department of Pathology at [facility]. They have not been cleared or approved by the U.S.Food and Drug Administration (FDA); the FDA has determined that such clearance or approval is not necessary. [facility] [place] PATHOLOGY ORD ERABLES SEE NARRATIVE documented in this encounter Visit Diagnoses Not [...] Given 05/09/2019 8:58 PM EST 975 mg bisacodyl (DULCOLAX) suppository 10 mg 10 mg, Rectal, Daily as needed, moderate constipation, Starting on Thu05/06/19 at 0933 buPROPion (WELLBUTRIN SR) SR 12 hr tablet 150 mg 150 mg, Oral, Daily, First dose on Thu05/06/19 at 0900, DO NOT cut, crush, or chew tablets due to increased risk of seizures. Given 05/09/2019 9:15 AM EST 1 50 mg diphenhydrAMINE (BENADRYL) capsule 25 mg 25 mg, Oral, Every 6 hours PRN, itching, Starting on Tu05/10/19 at 1015 Given 05/10/2019 11:43 AM EST 25 mg enoxaparin (LOVENOX) subcutaneous syringe 40 mg 40 mg, Subcutaneous, Daily, First dose on Thu05/09/19 at 1515, Administer subcutaneously. Rotate injection sites. Given 05/10/2019 10:06 AM EST 40 mg Given 05/09/2019 3:02 PM EST 40 mg hydrocortisone 2.5 % cream Topical, 2 times daily, First dose on Thu05/10/19 at 0900, Apply to rash as needed For TOPICAL Use Only Given 05/10/2019 8:33 AM EST 1 application. ibuprofen (ADVIL,MOTRIN) tablet 600 mg 600 mg, Oral, Every 6 hours PRN, mild pain or 1-3 (on a general 0-10 scale), Starting on Thu05/09/19 at 1429 Given 05/10/2019 2:25 PM EST 600 mg Given 05/10/2019 6:01 AM EST 600 mg Given 05/09/2019 9:52 PM EST 600 mg magnesium oxide (MAG-OX) tablet 400 mg 400 mg, Oral, Daily, First dose on Thu05/09/19 at 0900, Dose is expressed in magnesium oxide salt. Magnesium oxide salt 1.67 mg = elemental magnesium 1 mg. Given 05/10/2019 8:38 AM EST 400 mg Given 05/09/2019 9:15 AM EST 400 mg ondansetron (PF) (ZOFRAN) injection 2 mg 2 mg, Intravenous, Every 4 hours PRN, nausea, vomiting, Starting on Consuelo 05/05/19 at 1548, If unable to tolerate PO. Given 05/09/2019 7:53 AM EST 2 mg Given 05/09/2019 2:50 AM EST 2 mg Given 05/08/2019 9:25 PM EST 2 mg ondansetron (ZOFRAN-ODT) disintegrating tablet 4 mg 4 mg, Oral, Every 6 hours PRN, nausea, vomiting, Starting on Consuelo 05/05/19 at 1548 Given 05/10/2019 11:43 AM EST 4 mg Given 05/10/2019 2:25 AM EST 4 mg Given 05/09/2019 5:42 PM EST 4 mg oxidized cellulose (SURGICEL ORIGINAL) 2 X 14 pads As needed, Starting on Thu05/06/19 at 0526, Intra-op/procedure Given 05/06/2019 5:33 AM EST 1 each Surgical Site Given 05/06/2019 5:26 AM EST 1 each Leonardo rgical Site oxyCODONE tablet 5-10 mg 5-10 mg, Oral, Every 4 hours PRN, moderate pain or 4-6 (on a general 0-10 scale), Starting on 05/08/19 at 2126, Hold if RR<12, SBP<90, Sedated/Somnolent, Altered Mental Status, On hold since Thu05/10/2019 at 1019 until manually unheld Given 05/10/2019 8:37 AM EST 5 mg Given 05/10/2019 3:00 AM EST 5 mg Given 05/10/2019 2:25 AM EST 5 mg polyethylene glycol packet 17 g, Oral, Daily, [...] Bag 05/07/2019 4:17 AM EST 20 mEq prochlorperazine edisylate (COMPAZINE) injection 5 mg 5 mg, Intravenous, Every 4 hours PRN, nausea, vomiting, Starting on Thu05/06/19 at 0205, Administer as slow IV push at a rate NOT to exceed 5 mg/min. Given 05/10/2019 8:30 AM EST 5 mg Given 05/10/2019 3:00 AM EST 5 mg Given 05/09/2019 8:58 PM EST 5 mg senna (SENOKOT) tablet 1 tablet 1 tablet, Oral, 2 times daily, First dose on Thu05/06/19 at 1030 Given 05/10/2019 8:38 AM EST [...] gas, Starting on Thu05/09/19 at 1414, Chewable Given 05/10/2019 12:53 PM EST 80 mg Given 05/09/2019 2:23 PM EST 80 mg thrombin hemostatic matrix (FLOSEAL) 5000 units/10 mL As needed, Starting on Thu05/06/19 at 0526, Intra-op/procedure Given 05/06/2019 5:26 AM EST 5 mL Surgical Site documented in this encounter Active and Recently [...] Amaris Packer RN)0915 (Given - Provider: Areli Alejandro RN)1423 (Given - Provider: Areli Alejandro RN)2058 (Given - Provider: Lou Goodrich RN) 0225 (Given - Provider: Amaris Packer RN)1004 (Given - Provider: Valeria Hunter RN)1445 (Due - Provider: Amaris Packer RN) buPROPion (WELLBUTRIN SR) SR 12 hr tablet 150 mg 150 mg, Oral, Daily, First dose on Thu05/06/19 at 0900, DO NOT cut, crush, or chew tablets due to increased risk of seizures. 1007 (Not Given - Provider: Areli Alejandro RN - Reason: Patient/family refused) 0915 (Given - Provider: Areli Alejandro RN) 0837 (Not Given - Provider: Valeria Hunter RN - Reason: Patient/family refused) enoxaparin (LOVENOX) subcutaneous syringe 40 mg 40 mg, Subcutaneous, Daily, First dose on Thu05/09/19 at 1515, Administer subcutaneously. Rotate injection sites. 1502 (Given - Provider: Areli Alejandro RN) 1006 (Given - Provider: Valeria Hunter RN) hydrocortisone 2.5 % cream Topical, 2 times daily, First dose on Thu05/10/19 at 0900, Apply to rash as needed For TOPICAL Use Only 0833 (Given - Provider: Valeria Hunter RN - Comment: applied to neck, hand and back.) magnesium oxide (MAG-OX) tablet 400 mg 400 mg, Oral, Daily, First dose on Thu05/09/19 at 0900, Dose is expressed in magnesium oxide salt. Magnesium oxide salt 1.67 mg = elemental magnesium 1 mg. 0915 (Given - Provider: Areli Alejandro RN) 0838 (Given - Provider: Valeria Hunter RN) polyethylene glycol packet 17 g, Oral, Daily, First dose on Thu05/06/19 at 1030, Dissolve and stir one packet of powder (17 g) in 4-8 oz of water or juice. 0831 (Given - Provider: Areli Alejandro RN) 0914 (Given - Provider: Areli Alejandro RN) 0838 (Given - Provider: Valeria Hunter RN) potassium chloride SA (K-DUR,KLOR-CON) ER tablet 40 [...] Goodrich, TAWANA) 0838 (Given - Provider: Valeria Hunter RN) sennosides 8.8 mg/5 mL syrup 8.8 mg(Linked Group 1) 8.8 mg, Oral, 2 times daily, First dose on Thu05/06/19 at 1030, Liquid may be administered with fruit juice or milk to mask taste. 0831 (See Alternative - Provider: Areli Alejandro RN)1999 (See Alternative - Provider: Amaris Packer RN) 09 (See Alternative - Provider: Areli Alejandro RN)2057 (See Alternative - Provider: Lou Goodrich, TAWANA) 0838 (See Alternative - Provider: Valeria Hunter RN) Continuous Medication Order 05/08/2019 05/09/2019 05/10/2019 HYDROmorphone [...] rate + 3x demand dose]: 10 mL 51 (New Bag - Provider: Sejal Myrick RN) PRN Medication Order 05/08/2019 05/09/2019 05/10/2019 bisacodyl (DULCOLAX) suppository 10 mg 10 mg, Rectal, Daily as needed, moderate constipation, Starting on Thu05/06/19 at 0933 diphenhydrAMINE (BENADRYL) capsule 25 mg 25 mg, Oral, Every 6 hours PRN, itching, Starting on Thu05/10/19 at 1015 1143 (Given - Provider: Valeria Hunter, TAWANA) ibuprofen (ADVIL,MOTRIN) tablet 600 mg 600 mg, Oral, Every 6 hours PRN, mild pain or 1-3 (on a general 0-10 scale), Starting on 05/09/19 at 1429 1608 (Given - Provider: Lou Goodrich, TAWANA)2152 (Given - Provider: Lou Goodrich, TAWANA) 0601 (Given - Provider: Amaris Packer, TAWANA)1425 (Given - Provider: Valeria Hunter RN) naloxone (NARCAN) injection dilution syringe 0.04-0.08 mg [...] Areli Alejandro RN)2125 (Given - Provider: Amaris Packer, TAWANA) 0250 (Given - Provider: mAaris Packer, TAWANA)0753 (Given - Provider: Areli Alejandro RN)1247 (See Alternative - Provider: Sis Chin RN)1742 (See Alternative - Provider: Luo Goodrich RN) 0225 (See Alternative - Provider: Amaris Packer, TAWANA)1143 (See Alternative - Provider: Valeria Hunter, TAWANA) ondansetron (ZOFRAN-ODT) disintegrating tablet 4 mg(Linked Group 2) 4 mg, Oral, Every 6 hours PRN, nausea, vomiting, Starting on Consuelo 05/05/19 at 1548 1012 (See Alternative - Provider: Areli Alejandro RN)2125 (See Alternative - Provider: Amaris Packer RN) 0250 (See Alternative - Provider: Amaris Packer RN)0753 (See Alternative - Provider: Areli Alejandro RN)1247 (Given - Provider: Sis Chin RN)1742 (Given - Provider: Lou Goodrich RN) 0225 (Given - Provider: Amaris Packer RN)1143 (Given - Provider: Valeria Hunter RN) oxyCODONE tablet 5-10 mg (CANCELED) 5-10 mg, Oral, Every 4 hours PRN, moderate pain or 4-6 (on a general 0-10 scale), Starting on Consuelo 05/05/19 at 1548 2005 (Given - Provider: Amaris Packer RN) oxyCODONE tablet 5-10 mg 5-10 mg, Oral, Every 4 hours PRN, moderate pain or 4-6 (on a general 0-10 scale), Starting on [place] 05/08/19 at 2126, Hold if RR<12, SBP<90, Sedated/Somnolent, Altered Mental Status, On hold since Thu05/10/2019 at 1019 until manually unheld 0538 (Given - Provider: Amaris Packer RN)1023 (Given - Provider: Areli Alejandro RN)1244 (Given - Provider: Sis Chin RN)1742 (Given - Provider: Lou Goodrich RN)2152 (Given - Provider: Lou Goodrich RN) 0225 (Given - Provider: Amaris Packer RN)0300 (Given - Provider: Amaris Packer RN - Comment: Pt vomited previous 5mg dose)0837 (Given - Provider: Valeria Hunter RN)1019 (Held by provider - Provider: Mj Ramsey [...] Myrick RN) 0537 (Given - Provider: Amaris Packer RN)1024 (Given - Provider: Areli Alejandro RN)2058 (Given - Provider: Lou Goodrich, TAWANA) 0300 (Given - Provider: Amaris Packer, TAWANA)0830 (Given - Provider: Valeria Hunter, TAWANA) simethicone (MYLICON) chewable tablet 80 mg 80 mg, Oral, Every 6 hours PRN, gas, Starting on 05/09/19 at 1414, Chewable 1423 (Given - Provider: [...] PO. documented in this encounter Care Teams Cloth Classer Relationship Specialty Start Date End Date Jennifer Bridges NP [address] [place] [address] [address] [place] [phone] [email or web address] PCP - General 12/31/18 Hayley Pandey MD [address] [phone] Historical LMR Provider 01/15/19 03/30/21 Chloé Sánchez CNM [address] [place], [place] [phone] Historical LMR Provider 01/15/19 03/30/21 Dayana Galindo MD [address] [place] [address] Historical LMR Provider 01/15/19 03/30/21 Ruiz Lewis DO [address] [place] [address] [email or web address] Historical LMR Provider 01/15/19 03/30/21 Cain Morales MD [address] [place] [address] Historical LMR Provider 01/15/19 2 Kate Leal MD 15 [facility] [address] [place] [address] [email or web address] Historical LMR Provider 01/15/19 03/30/21 Jennifer Bridges NP 60 [facility] 3 [place] [address] [email or web address] Historical LMR Provider 01/15/19 10/31/19 Tari Willams 15 [facility] 201 [place] [address] Historical LMR Provider 01/15/19 2 Kody Ayon MD 60 [facility] 300 [place] [address] Historical LMR Provider 01/15/19 Cynthia Allen CNM [address] [place] [address], [place] [address] Historical LMR Provider 01/15/19 03/30/21 Tari Urias DO 10 [facility] 200 [place] [address] Historical LMR Provider 01/15/19 10/31/19 Palak Culver CNM 15 [facility] 102 [place] [address] Historical LMR Provider 01/15/19 03/30/21 Damaso Carranza MD 15 [facility] 102 [place] [address] Historical LMR Provider 01/15/19 Ian Youssef MD [address] [place] [address] Historical LMR Provider 01/15/19 2 Jc Jacobs MD [address] [place] [id number] [email or web address] Historical LMR Provider 01/15/19 03/30/21 Eliz Saleem CNM [employer] [place] [facility], [place] [address] [email or web address] Historical LMR Provider 01/15/19 03/30/21 documented as of this encounter Additional Source Comments The information contained in this document represents components of the legal health record. It is not the complete legal health record.[facility]
--- OUTSIDE RECORDS SUMMARY | 2023-11-16 12:23 | XMS_ITS | Encounter Summary ---
Author Organization [facility] Address [phone] [facility] [place] [address] Care Team Providers Care Free Lance Model Name Role Phone Jennifer Bridges NP Primary Care Provider Hayley Pandey MD Unavailable + [phone] Chloé Sánchez CNM Unavailable [phone] Dayana Galindo MD Unavailable Ruiz Lewis DO Unavailable Xiomara Cain Morales MD Unavailable Kate Leal MD Unavailable [phone] Jennifer Bridges NP Unavailable [phone] Tari Willams Unavailable [phone] Kody Ayon MD Unavailable [phone] Cynthia Allen CNM Unavailable [phone] Tari Urias DO Unavailable [phone] Palak Culver CNM Unavailable [phone] Damaso Carranza MD Unavailable Ian Youssef MD Unavailable [phone] Jc Jacobs MD Unavailable [phone] Eliz Saleem CNM Unavailable [phone] Reason for Visit * Reason Onset Date Comments referral 03/31/2019 mailbox full. un able to leave message. Encounter Details Date Type Department Care Team (Late st Contact Info) Description 03/31/2019 Telephone [facility] Medical Oncology [address] [place] [address] Nina Lujan, RN [address] [place] [address] [email or web address] referral (mailbox full. unable to leave message.) Social History Tobacco Use Types Packs/Day Years Used Date Smoking Tobacco: Never Sex and Gender Information Value Date Recorded Sex Assigned at Female 01/11/2020 5:24 PM EDT Gender Identity Female 01/11/2020 5:24 PM EDT Sexual Orientation Straight 01/11/2020 5: 24 PM EDT documented as of this encounter Progress Notes * Nina Lujan RN - 03/31/2019 12:10 PM EST Unable to leave message on pt VM. documented in this encounter Plan of Treatment Not on file documented as of this encounter Visit Diagnoses Not on filedocumented in this encounter Care Teams Free Lance Model Relationship Specialty Start Date End Date Jennifer Bridges NP [address] [place] [phone] [email or web address] PCP - General 12/31/18 Hayley Pandey MD [address] [place] [id number] [email or web address] Historical LMR Provider 01/15/19 03/30/21 Chloé Sánchez CNM 15 [facility] 102 [place] [address] [email or web address] Historical LMR Provider 01/15/19 03/30/21 Dayana Galindo MD 15 [facility] [address] [place] [address] [email or web address] Historical LMR Provider 01/15/19 03/30/21 Ruiz Lewis DO [address] [place] [address] [email or web address] Historical LMR Provider 01/15/19 03/30/21 Cain Morales MD [address] [place] [address] [address] [place] [address] Historical LMR Provider 01/15/19 2 Kate Leal MD 15 [facility] 102 [place] [address] [email or web address] Historical LMR Provider 01/15/19 03/30/21 Jennifer Bridges NP 60 [facility] 3 [place] [address] [email or web address] Historical LMR Provider 01/15/19 10/31/19 Tari Willams 15 [facility] 201 [place] [address] Historical LMR Provider 01/15/19 2 Kody Ayon MD [address] [address] Historical LMR Provider 01/15/[address] [place] [address] Historical LMR Provider 01/15/19 03/30/21 Tari Urias DO [address] [place] [address] 200 [place] [address] Historical LMR Provider 01/15/19 10/31/19 Palak Culver CNM 15 [facility] 102 [place] [address] [email or web address] Historical LMR Provider 01/15/19 03/30/21 Damaso Carranza MD [address] [place] [address] Historical LMR Provider 01/15/19 Ian Youssef MD [address] [place] [address] Historical LMR Provider 01/15/19 Jc Alba MD [address] [place] [id number] [email or web address] Historical LMR Provider 01/15/19 03/30/[address], [place] [address] [email or web address] Historical LMR Provider 01/15/19 03/30/21 documented as of this encounter Additional Source Comments The information contained in this document represents components of the legal health record. It is not the complete legal health record.[facility]
--- OUTSIDE RECORDS SUMMARY | 2023-11-16 12:23 | XMS_ITS | Encounter Summary ---
[place] [address] Care Team Providers Care Insecticide Expert Name Role Phone Camryn Roa APRN Primary Care Provider [phone] Reason for Referral * Consultation (Routine) - Closed Specialty Diagnoses / Procedures Referred By Theresa lo Referred To Contact Neurology Diagnoses New onset seizure Keith Hart DO [address] [place] [address] [place] [phone] [facility] Neurology [address] [place] [phone] Referral ID Status Reason Start Date Expiration Date V isits Requested Visits Authorized [id number] Closed Consult, Test & Treat 04/27/2023 04/26/2024 1 1 Encounter Details Date Type Department Care Team (Latest Contact Info) Description 04/27/2023 Transcribe Orders eDH Incoming Referrals [phone] Keith Hart DO [address] [place] [address] [place] [phone] New onset seizure (Primary Dx) Social History Tobacco Use Types Packs/Day Years Used Date Smoking Tobacco: Never Assessed Sex and Gender Information Value Date Recorded Sex Assigned at Not on file Gender Identity Not on file Sexual Orientation Not on file documented as of this encounter Plan of Treatment Scheduled Referrals Name Type Priority Associated Diagnoses Orde r Schedule Referral to Neurology Outpatient Referral Routine New onset seizure Ordered: 04/27/2023 documented as of this encounter Visit Diagnoses Diagnosis New onset seizure- Primary Other convulsions documented in this encounter Care Teams Insecticide Expert Relationship Specialty Start Date End Date Camryn Roa APRN [address] [place] [id number] PCP - General Family Medicine 07/29/21 documented as of this encounter
--- OUTSIDE RECORDS SUMMARY | 2023-11-16 12:23 | XMS_ITS | Encounter Summary ---
Author Organization [facility] Address [phone] [facility] [place] [address] Care Team Providers Care Helper Shear Operator Name Role Phone Jennifer Bridges NP Primary Care Provider Hayley Pandey MD Unavailable + [phone] Chloé Sánchez CNM Unavailable [phone] Dayana Galindo MD Unavailable Ruiz Lewis DO Unavailable Xiomara Cain Morales MD Unavailable Kate Leal MD Unavailable [phone] Jennifer Bridges NP Unavailable [phone] Tari Willams Unavailable [phone] Kody Ayon MD Unavailable [phone] Cynthia Allen CNM Unavailable [phone] Tari Urias DO Unavailable [phone] Palak Culver CNM Unavailable [phone] Chino Carranza MD Unavailable Ian Youssef MD Unavailable [phone] Jc Jacobs MD Unavailable Eliz Saleem [facility] Unavailable Reason for Referral * Consultation (Within 1 month) - Closed Specialty Diagnoses / Procedures Referred By Theresa lo Referred To Contact Medical Oncology Diagnoses Adenocarcinoma of cervix Chino Carranza MD [address] [place] [address] Email: [facility] Parent [address] [place] [address] Referral ID Status Reason Start Date Expiration Date Visits Re quested Visits Authorized [id number] Closed 03/30/2019 03/30/2020 1 1 * Consultation (Within 1 month) - Closed Specialty Diagnoses / Procedures Referred By Theresa lo Referred To Contact Diagnoses Adenocarcinoma of cervix Chino Carranza MD [address] [place] [address] Email: [facility] Gynecological Onc [facility]. Referral ID Status Reason Start Date Expiration Date Visits Re quested Visits Authorized [id number] Closed 03/30/2019 03/30/2020 1 1 Reason for Visit * Reason Comments Contraception Discuss BC options Encounter Details Date Type Department Care Team (Late st Contact Info) Description 03/30/2019 11:30 AM EST Office Visit [facility] Inf[facility] [address] [place] [address] Chino Carranza MD [address] [place] [address] [email or web address] Encounter for initial prescription of contraceptive pills (Primary Dx); Adenosquamous carcinoma of cervix; Adenocarcinoma of cervix Social History Tobacco Use Types Packs/Day Years Used Date Smoking Tobacco: Never Sex and Gender Information Value Date Recorded Sex Assigned at Female 01/11/2020 5:24 PM EDT Gender Identity Female 01/11/2020 5:24 PM EDT Sexual Orientation Straight 01/11/2020 5: 24 PM EDT documented as of this encounter Last Filed Vital Signs Vital Sign Reading Time Taken Comments Blood Pressure 100/65 03/30/2019 12:04 PM EST Pulse - - Temperature - - Respiratory Rate - - Oxygen Saturation - - Inhaled Oxygen Concentration - - Weight 60.8 kg (134 lb) 03/30/2019 12:04 PM EST Height - - Body Mass Index 27.06 10/14/2018 10:21 AM EDT documented in this encounter Progress Notes * Chino Carranza MD - 03/30/2019 11:30 AM ESTAddended by: CHINO CARRANZA on: 03/30/2019 02:19 PM Modules accepted: Orders * Chino Carranza MD - 03/30/2019 11:30 AM EST Marylou is a 28-year-old patient well-known to me with a diagnosis of adenocarcinoma of the cervix. For treatment hysterectomy was chosen but she decided to defer for 1year in order to have a baby. She became and delivered and now is 5 months . She is to here today looking for control. 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 We discussed taking a progestin only pill as she has taken control pills in the past. 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 Contraception management Plan: We had a lengthy discussion today about the need for hysterectomy and her feelings about this. Ultimately she agrees that this needs to be done and I am going to set her up with [facility] for consultation. Otherwise she was prescribed a progestin only pill to start today and we discussed how to take the pill. documented in this encounter Plan of Treatment Scheduled Referrals Name Type Priority Associated Diagnoses Order Schedule Ambulatory referral to [facility] Gynecologic Oncology Outpatient Referral Routine Adenocarcinoma of cervix Ordered: 03/30/2019 Ambulatory Referral to [facility] Medical Oncology Outpatient Referral Routine Adenocarcinoma of cervix Ordered: 03/30/2019 documented as of this encounter Visit Diagnoses Diagnosis Encounter for initial prescription of contraceptive pills- Primary Adenosquamous carcinoma of cervix Adenocarcinoma of cervix documented in this encounter Care Teams Helper Shear Operator Relationship Specialty Start Date End Date Jennifer Bridges CLERICAL ASSISTANT [address] [place] [address] [address] [place] [address] [email or web address] PCP - General 12/31/18 Hayley Pandey MD [address] [place] [address] [email or web address] Historical LMR Provider 01/15/19 03/30/21 Chloé Sánchez CNM [address] [place] [address] [email or web address] Historical LMR Provider 01/15/19 03/30/21 Dayana Galindo MD [address] [place] [address] [email or web address] Historical LMR Provider 01/15/19 03/30/21 Ruiz Lewis DO [address] [place] [address] [email or web address] Historical LMR Provider 01/15/19 03/30/21 Cain Morales MD [address] [place] [id number] Historical LMR Provider 01/15/19 2 Kate Leal MD [address] [place] [id number] [email or web address] Historical LMR Provider 01/15/19 03/30/21 Jennifer Bridges NP [address] [facility] 3 [place] [address] [email or web address] Historical LMR Provider 01/15/19 10/31/19 Tari Willams [address] [facility] [address] [place] [address] Historical LMR Provider 01/15/19 2 Kody Ayon MD [address] [place] [address] [address] [place] [address] Historical LMR Provider 01/15/19 Cynthia Allen CNM [address] [place] [id number] [email or web address] Historical LMR Provider 01/15/19 03/30/21 Tari Urias DO [address] [place] [address] [address] [place] [address] Historical LMR Provider 01/15/19 10/31/19 Palak Culver CNM 15 [facility] [address] [place] [address] Historical LMR Provider 01/15/19 03/30/21 Chino Carranza MD [address] [facility] [address] [place] [address] [email or web address] Historical LMR Provider 01/15/19 Ian Youssef MD [address] [place] [address] [address] [place] [address] Historical LMR Provider 01/15/19 2 Jc Jacobs MD [address] [place] [id number] [email or web address] Historical LMR Provider 01/15/19 03/30/21 [place] [address] [email or web address] Historical LMR Provider 01/15/19 03/30/21 documented as of this encounter Additional Source Comments The information contained in this document represents components of the legal health record. It is not the complete legal health record.[facility]
--- OUTSIDE RECORDS SUMMARY | 2023-11-16 12:23 | XMS_ITS | Encounter Summary ---
Author Organization [facility] Address [phone] Formerly [facility] [employer] [place] [address] Care Team Providers Care Manufacturing Engineer Assembly Name Role Phone Jennifer Bridges NP Primary Care Provider Hayley Pandey MD Unavailable + [phone] Chloé Sánchez CNM Unavailable [phone] Dayana Galindo MD Unavailable Ruiz Lewis DO Unavailable Xiomara Cain Morales MD Unavailable Kate Leal MD Unavailable [phone] Jennifer Bridges NP Unavailable [phone] Tari Willams Unavailable Kody Ayon MD Unavailable [phone] Cynthia Allen CNM Unavailable [phone] Tari Urias DO Unavailable [phone] Palak Culver CNM Unavailable [phone] Damaso Carranza MD Unavailable Ian Youssef MD Unavailable [phone] Jc Jacobs MD Unavailable Eliz Saleem [facility] Unavailable Reason for Visit * Auth/Cert Specialty Diagnoses / Procedures Referred By Theresa t Referred To Contact Diagnoses 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] Procedures [place] RADICAL ABD HYSTEREC+PELV NODES [place] REMOVE PELVIS LYMPH NODES HYSTERECTOMY RADICAL LYMPHADENECTOMY PELVIC Referral ID Status Reason Start Date Expiration Date Visits Re quested Visits Authorized [id number] 1 1 Encounter Details Date Type Department Care Team (Late st Contact Info) Description 05/05/2019 9:53 AM EST Anesthesia Event [facility] [address] [place] [phone] Magen Garza MD [address] [place] [address] [email or web address] [address] [email or web address] Anesthesia Record Procedure Summary Procedure Name Responsible Anesthesiologist Anesthesia Start Time Anesthesia Stop Time EXPLORATORY LAPAROTOMY, TOTAL ABDOMINAL RADICAL HYSTERECTOMY, BILATERAL SALPINGECTOMY, UPPER VAGINECTOMY Magen Garza MD 05/05/19 0953 05/05/19 1611 Events Date Time Event Comment 05/05/2019 0928 Start Out of OR Vitals 0929 Start Out of OR Vitals 0948 In Room 0949 Stop Out of OR Vitals 0953 An Start 0953 An Start Data 0958 An Induction 1002 An Intubation 1003 An Induction complet 1015 Procedure Start 1016 Incision 1032 1503 Quick Note Gilberto in 1531 Procedure End 1547 An Extubation 1551 an stop data 1553 Out of Room 1611 Post Op Handoff 1611 An Stop Meds Name Total midazolam 1mg/ml 2 mg fentaNYL 100 mcg lidocaine 2% 80 mg propofol 10mg/ml 160 mg rocuronium 100 mg phenylephrine syringe 80 mcg/mL (5 mL) 1 60 mcg phenylephrine 80 mcg/mL (250 mL) 14,390 mcg ondansetron 4 mg lidocaine 2% EPI 1:200,000 (PF) 40 mL esmolol 10mg/ml 130 mg gentamicin 280 mg clindamycin 150mg/ml vial 900 mg lidocaine 1.5% Epi 1:200,000 (PF) 5 mL dexamethasone 8 mg haloperidol 5mg/ml 1 mg Lactated ringers 1,900 mL albumin 5% 1,000 mL * Agents Name Sevoflurane insp CO2 [...] Epidural Cath Placement Date: 05/05/19; Placement Time: 0939; Placment Location: Thoracic; Tolerance: Tolerated well; Removal Date: 05/05/19; Removal Time: 1610; Insertion Attempts: 1 05/05/19 0939 by Vane Mejia CRNA 05/05/19 1610 by Vane Mejia CRNA Epidural Cath Placement Date: 05/05/19; Placement Time: [...] MONICA 05/07/19 0000 by Christi Sawyer RN Peripheral IV Placement Date: 05/05/19; Placement Time: 0953; Orientation: Left, Anterior; Location: Hand; Site Prep: Alcohol; Attempts: 1; Removal Date: 05/07/19; Removal Reason: Pain 05/05/19 0953 by Serina Lopez, MONICA 05/07/19 0000 by Christi Sawyer RN ETT Placement Date: 05/05/19; Placement Time: 1003; Removal Date: 05/05/19; Removal Time: 1550 05/05/19 1003 by Magen Garza MD 05/05/19 1550 by Vane Mejia CRNA documented in this encounter Social History Tobacco [...] PM EDT documented as of this encounter Procedure Notes * Vane Mejia CRNA - 05/05/2019 4:06 PM ESTAssociated Order(s): Epidural Catheter Epidural Catheter Placement Procedure Note: Reason for block: epidural performed exclusively for post-op analgesia Performed by: other anesthesia staff Anesthesiologist: Magen Garza MD Fellow/Resident/INSPECTING AND TESTING LEAD HAND: Vane Mejia CRNA Other anesthesia staff: Serina Lopez [place] Protocol performed: consent obtained, patient identified with 2 identifiers, correct procedure verified, correct site and laterality confirmed, verified equipment, coagulation status reviewed and implant history reviewed. Procedure details: Patient position: sitting Prep: chloraprep and sterile drape Approach: midline Location: thoracic (1-12) Block type: continuous catheter Level: T7-8 Needle and Epidural Catheter: Needle type: Cherelle Needle gauge: 17 G Number of attempts: 1 Catheter type: end hole and single-port Loss of resistance depth: 6 PINKY Technique: PINKY saline Needle length: standard Catheter at skin depth: 10 Test dose: lidocaine 1.5% with epinephrine Test dose reaction: negative Outcomes: CSF was not aspirated. Blood was not aspirated Paresthesia: no Complications? no Serina Jeffery - 05/05/2019 10:20 AM ESTAssociated Order(s): Airway Placement Airway Placement Procedure Note: Patient was not difficult to intubate. Procedure performed by: other anesthesia staff Anesthesiologist: Magen Garza MD Fellow/Resident/INSPECTING AND TESTING LEAD HAND: Vane Mejia CRNA Other Anesthesia staff: Serina Lopez Airway procedure initiated at:05/05/2019 10:03 AM and ended at. Mask Ventilation: Quality: easy Airway Placement: Technique: direct laryngoscopy Rapid sequence induction: no Details: Blade type: Mac Blade size: 3 Direct view: grade 2 Airway manipulation: cricoid pressure Number of attempts: 1 ETT type: cuffed ETT size: 7.0 ETT depth at teeth: 22 ETT cuff inflation volume: 8 Tube position confirmed by: bilateral breath sounds and EtCO2 Bite Block: soft Outcomes: Evidence of dental injury? no Complications observed? no Notes: ETT passed atraumatically through the cords. Cricoid pressure needed for slightly anterior airway. No injury noted. Extubation Notes: documented in this encounter OR Notes * Anesthesia Postprocedure Evaluation - Vane Mejia CRNA - 05/05/2019 4:11 PM EST Anesthesia Post Operative Note Anesthesia Type: general Patient evaluated in: PACU Consciousness: arousable Airway/ Respiratory Status: Airway Adjuncts: no airway adjuncts. Respiratory Status: no airway complications. Supplemental O2: face mask Nausea/ Vomiting: Nausea and vomiting control satisfactory Hydration Status: adequate Analgesia/ Pain: Pain control is: adequate Vital Signs: Post-procedure vital signs reviewed Epidural/ Spinal/ Regional Block: Regional Anesthesia Type: epidural Patient denies headache and back pain. Regional anesthetic insertion site: clean/dry/intact Other: Patient experienced no anesthesia complications. PACU Discharge Disposition: Planned inpatient Entered by: Vane Mejia CRNA Vital Signs: Vitals Value Taken Time BP 124/76 05/05/2019 4:00 PM Temp 37.4 ??C (99.4 ??F) 05/05/2019 4:00 PM Pulse 94 05/05/2019 4:11 PM Resp 16 05/05/2019 4:00 PM SpO2 100 % 05/05/2019 4:11 PM Art BP 1 Vitals shown include unvalidated device data. * Anesthesia Preprocedure Evaluation - John Serina - 04/27/2019 10:14 AM EST Images from the original note were not included. Patient: Marylou Shafer Date of Surgery: 05/05/2019 Procedure: HYSTERECTOMY RADICAL (N/A ) LYMPHADENECTOMY PELVIC (N/A ) Surgeon(s): Marce Cole MD Relevant Problems No relevant active problems Past Medical History: Diagnosis Date ??? Adenocarcinoma in situ of cervix ??? Anemia ??? Anxiety and depression ??? Asthma young child ??? Cancer ??? Eye muscle paralysis right eye partial ??? Hypertensive disorder with pregnancies; resolved after births Allergies Allergen Reactions ??? Cantaloupe ??? Cephalexin Monohydrate ??? Other ragweed ??? Paroxetine Hcl Nausea Only ??? Penicillin ??? Penicillins Rash ??? Sertraline Nausea Only ??? Sulfamethoxazole ??? Trimethoprim ??? Valacyclovir Hcl Past Surgical History: Procedure Laterality Date ??? CERVIX SURGERY cold knife ??? UNCODED SURGICAL HISTORY Asthma as child, allergies now ??? UNCODED SURGICAL HISTORY Polydypsia ??? UNCODED SURGICAL HISTORY Cervical Dysplasia, mild; Colposcopy, without biopsy; 10/14/2013; 04/08/2016 - @ [facility] ??? UNCODED SURGICAL HISTORY Abdominal pain ??? [...] surgery; 2005 ??? UNCODED SURGICAL HISTORY Polyuria Social History Tobacco Use ??? Smoking status: Never Smoker ??? Smokeless tobacco: Never Used Substance Use Topics ??? Alcohol use: Not Currently Social History Substance and Sexual Activity Drug Use Yes ??? Types: Marijuana Comment: on weekends Medication List Accurate as of April 27, 2019 10:14 AM. If you have any questions, ask your nurse or doctor. CONTINUE taking these medications norethindrone 0.35 mg tablet Commonly known as: MICRONOR Take 1 tablet (0.35 mg total) by mouth daily. Micronor 1 tab po QD Notes to patient: Take on the morning of surgery unless otherwise directed + DHA 28 mg iron-800 mcg-200 mg Cmpk Generic drug: 95-iron [id number] Notes to patient: Do not take day of surgery Wellbutrin XL 150 MG ER 24 hr tablet Generic drug: buPROPion Notes to patient: Take on the morning of surgery unless otherwise directed BP Readings from Last 1 Encounters: 04/19/19 107/73 Pulse Readings from Last 1 Encounters: 04/19/19 83 Temp Readings from Last 1 Encounters: 04/19/19 37.3 ??C (99.1 ??F) Estimated body mass index is 26.09 kg/m?? as calculated from the following: Height as of 04/19/19: 150.8 cm (4' 11.37). Weight as of 04/19/19: 59.3 kg (130 lb 12.8 oz). General: Patient snapshot reviewed. This is a 28yo female with a history of cervical adenocarcinoma, seasonal allergies, some residual symptoms from her Chiari malformation, right eye partial paralysis, anemia, anxiety, and depression.She denies asthma. She is here for a radical hysterectomy. History and Allergies (imported from record): Past [...] Colposcopy, without biopsy; 10/14/2013; 04/08/2016 - @ [facility]ne[facility] No date: UNCODED SURGICAL HISTORY Comment: Abdominal [...] SURGICAL HISTORY Comment: 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; 2005 No date: UNCODED SURGICAL HISTORY Comment: Polyuria - Exercise Tolerance: METS scale is >=4. Exercise tolerance: Able to climb 2 flights of stairs without stopping. Physical Exam Airway: Mallampati score: II. Neck ROM is full. Mouth opening: normal. TM distance: short. Dental: No notable dental hx. Cardiovascular: The cardiovascular exam is normal. Heart rhythm: regular Pulmonary: The pulmonary exam is normal. Breath sounds are clear to auscultation. Neurological: The neurological exam is normal. (+) alert and oriented to self Other Physical Exam Findings: Comment: Right eye muscle paralysis noted Vital Signs (imported from record): BP 116/76 Pulse 78 Temp 37.5 ??C (99.5 ??F) (Temporal) Resp 18 Ht 149.9 cm (4' 11) Wt 59kg (130 lb) SpO2 96% Yes BMI 26.26 kg/m?? - Anesthesia Assessment and Plan ASA physical status: 2 Primary anesthetic: general Post-op analgesia: epidural. Airway: The plan for the airway is: ETT. Monitoring/Lines: The plan for monitoring and lines is: standard monitor and additonal IV. Post-op destination/disposition: PACU Notes: Anesthesia prior to day of surgery notes: Ms. Marylou Shafer is a 28 y.o. female 6 months post- with cervical adenocarcinoma requiring hysterectomy. Of note, patient has a history of Arnold Chiari Deformity s/p surgery 2004 at [facility], although still has symptoms (headaches, nausea, back pain, fatigue, tinnitus, balance/dizziness). I personally called patient, she states that she is no longer being followed by neurosurgery. She did have an epidural for her recent labor and delivery with no issues (delivered at [facility]). Caden Conrad MD Anesthesia day of surgery notes: Generally well-appearing in NAD. Sending labs off peripheral IV, discussed anesthesia plan, and answered questions. Informed Consent: Anesthetic plan and risks discussed with: patient. documented in this encounter Plan of Treatment Not on file documented as of this encounter Procedures Procedure Name Priority Date/Time Associated Diagnosis Comments ANES EPIDURAL LDA Routine 05/05/2019 4:0 6 PM EST [place] INJ INFUS CERV THORAC W/CATH 10267 WITHOUT IMG PERF Routine 05/05/2019 4:06 PM EST AIRWAY PLACEMENT Routine 05/05/2019 10:2 0 AM EST documented in this encounter Results * [place] INJ INFUS CERV THORAC W/CATH 71591 WITHOUT IMG PERF, ANES EPIDURAL LDA (05/05/2019 4:06 PM EST) Vane Fisher CRNA - 05/05/2019 4:06 PM EST Vane Mejia CRNA ? 05/05/2019 ??4:09 PM Epidural Catheter Placement Procedure Note: Reason for block: epidural performed exclusively for post-op analgesia Performed by: other anesthesia staff Anesthesiologist: Magen Garza MD Fellow/Resident/INSPECTING AND TESTING LEAD HAND: Vane Mejia CRNA Other anesthesia staff: Serina Lopez [place] Protocol performed: consent obtained, patient identified with 2 identifiers, correct procedure verified, correct site and laterality confirmed, verified equipment, coagulation status reviewed and implant history reviewed. Procedure details: Patient position: sitting Prep: chloraprep and sterile drape Approach: midline Location: thoracic (1-12) Block type: continuous catheter Level: ??T7-8 Needle and Epidural Catheter: Needle type: Cherelle Needle gauge: 17 G Number of attempts: 1 Catheter type: end hole and single-port Loss of resistance depth: 6 PINKY Technique: PINKY saline Needle length: standard Catheter at skin depth: 10 Test dose: lidocaine 1.5% with epinephrine Test dose reaction: negative Outcomes: CSF was not aspirated. Blood was not aspirated Paresthesia: no Complications? no Magen Garza MD [place] ANESTHESIA * ANES ETT DOUBLE LUMEN - AIRWAY LDA (05/05/2019 10:20 AM EST) Serina Gonzalez - 05/05/2019 10:20 AM EST Serina Lopez ? 05/05/2019 10:22 AM Airway Placement Procedure Note: Patient was not difficult to intubate. Procedure performed by: other anesthesia staff Anesthesiologist: Magen Garza MD Fellow/Resident/INSPECTING AND TESTING LEAD HAND: Vane Mejia CRNA Other Anesthesia staff: Serina Lopez Airway procedure initiated at:05/05/2019 10:03 AM and ended at. Mask Ventilation: Quality: easy Airway Placement: Technique: direct laryngoscopy Rapid sequence induction: no Details: Blade type: Mac Blade size: 3 Direct view: grade 2 Airway manipulation: cricoid pressure Number of attempts: 1 ETT type: cuffed ETT size: 7.0 ETT depth at teeth: 22 ETT cuff inflation volume: 8 Tube position confirmed by: bilateral breath sounds and EtCO2 Bite Block: soft Outcomes: Evidence of dental injury? no Complications observed? no Notes: ETT passed atraumatically through the cords. Cricoid pressure needed for slightly anterior airway. No injury noted. Extubation Notes: Magen Garza MD [place] ANESTHESIA documented in this encounter Visit Diagnoses Not on filedocumented in this encounter Administered Medications Inactive Administered Medications - up to 3 most recent administrations Medication Order MAR Action Action Date Dose Rate Site albumin human 5% bottle Continuous PRN, Starting on Consuelo 05/05/19 at 1407, Anesthesia Intra-op New Bag 05/05/2019 2:54 PM EST New Bag 05/05/2019 2:30 PM EST New Bag 05/05/2019 2:07 PM EST clindamycin (CLEOCIN) IM injection As needed, Starting on Consuelo 05/05/19 at 1005, Anesthesia Intra-op Given 05/05/2019 10:05 AM EST 900 mg dexamethasone (DECADRON) injection As needed, Starting on Consuelo 05/05/19 at 1000, Anesthesia Intra-op Given 05/05/2019 10:00 AM EST 8 mg esmolol (BREVIBLOC) injection As needed, Starting on Consuelo 05/05/19 at 1003, Anesthesia Intra-op Given 05/05/2019 3:46 PM EST 30 mg Given 05/05/2019 10:03 AM EST 100 mg fentaNYL (PF) (SUBLIMAZE) injection As needed, Starting on Consuelo 05/05/19 at 0935, Anesthesia Intra-op Given 05/05/2019 9:35 AM EST 50 mcg Given 05/05/2019 9:29 AM EST 50 mcg gentamicin 40 mg/mL injection As needed, Starting on Consuelo 05/05/19 at 1005, Anesthesia Intra-op Given 05/05/2019 10:05 AM EST 280 mg haloperidol lactate (HALDOL) injection As needed, Starting on Consuelo 05/05/19 at 1511, Anesthesia Intra-op Given 05/05/2019 3:11 PM EST 1 mg lactated Ringers infusion Continuous PRN, Starting on Consuelo 05/05/19 at 0926, Anesthesia Intra-op New Bag 05/05/2019 9:26 AM EST lidocaine (XYLOCAINE) 2% injection As needed, Starting on Consuelo 05/05/19 at 0944, Anesthesia Intra-op Given 05/05/2019 9:44 AM EST 80 mg lidocaine-EPINEPHrine (PF) (XYLOCAINE-MPF w/EPI) 1.5%-1:200,000 injection As needed, Starting on Consuelo 05/05/19 at 0944, Anesthesia Intra-op Given 05/05/2019 9:47 AM EST 2 mL Given 05/05/2019 9:44 AM EST 3 mL lidocaine-EPINEPHrine (PF) (XYLOCAINE-MPF w/EPI) 2%-1:200,000 injection As needed, Starting on Consuelo 05/05/19 at 0944, Anesthesia Intra-op Given 05/05/2019 2:59 PM EST 5 mL Given 05/05/2019 2:29 PM EST 5 mL Given 05/05/2019 1:45 PM EST 5 mL midazolam (PF) (VERSED) injection Soln As needed, Starting on Consuelo 05/05/19 at 0934, Anesthesia Intra-op Given 05/05/2019 9:34 AM EST 1 mg Given 05/05/2019 9:29 AM EST 1 mg ondansetron (PF) (ZOFRAN) injection As needed, Starting on Consuelo 05/05/19 at 1510, Anesthesia Intra-op Given 05/05/2019 3:10 PM EST 4 mg phenylephrine (SHERRY-SYNEPHRINE) infusion bag Continuous PRN, Starting on Consuelo 05/05/19 at 1011, Anesthesia Intra-op Rate/Dose Change 05/05/2019 3:31 PM EST 30 mcg/min 22.5 mL/hr Rate/Dose Change 05/05/2019 3:25 PM EST 40 mcg/min 30 mL/h r Rate/Dose Change 05/05/2019 2:29 PM EST 50 mcg/min 37.5 mL /hr phenylephrine (SHERRY-SYNEPHRINE) injection syringe As needed, Starting on Consuelo 05/05/19 at 1008, Anesthesia Intra-op Given 05/05/2019 10:18 AM EST 80 mcg Given 05/05/2019 10:08 AM EST 80 mcg propofol (DIPRIVAN) infusion As needed, Starting on Consuelo 05/05/19 at 1002, Anesthesia Intra-op Given 05/05/2019 10:02 AM EST 160 mg rocuronium (ZEMURON) injection Intravenous, As needed, Starting on Consuelo 05/05/19 at 1002, Anesthesia Intra-op Given 05/05/2019 2:45 PM EST 10 mg Given 05/05/2019 1:38 PM EST 10 mg Given 05/05/2019 1:04 PM EST 10 mg documented in this encounter Care Teams Manufacturing Engineer Assembly Relationship Specialty Start Date End Date Jennifer Bridges NP [address] [place] [phone] [email or web address] PCP - General 12/31/18 Hayley Pandey MD [address] [place] [id number] Historical LMR Provider 01/15/19 03/30/21 Chloé Sánchez CNM [address] [place] [id number] Historical LMR Provider 01/15/19 03/30/21 Dayana Galindo MD 15 [facility] [address] [place] [address] [email or web address] Historical LMR Provider 01/15/19 03/30/21 Ruiz Lewis DO [address] [facility] [place] [address] [email or web address] Historical LMR Provider 01/15/19 03/30/21 Cain Morales MD [address] [place] [address] [address] [place] [address] Historical LMR Provider 01/15/19 2 Kate Leal MD 15 [facility] [address] [place] [address] [email or web address] Historical LMR Provider 01/15/19 03/30/21 Jennifer Bridges, MONICA 60 [facility] 3 [place] [address] [email or web address] Historical LMR Provider 01/15/19 10/31/19 Tari Willams 15 [facility] [address] [place] [address] Historical LMR Provider 01/15/19 2 Kody Ayon MD 60 [facility] [address] [place] [address] Historical LMR Provider 01/15/19 Cynthia Allen CNM [address] [place] [id number] Historical LMR Provider 01/15/19 03/30/21 Tari Urias DO [address] [place] [address] [address] [place] [address] Historical LMR Provider 01/15/19 10/31/19 Palak Culver CNM 15 [facility] [address] [place] [address] Historical LMR Provider 01/15/19 03/30/21 Damaso Carranza MD [address] [address] Historical LMR Provider 01/15/19 Ian Youssef MD [address] [place] [id number] Historical LMR Provider 01/15/19 2 Jc Jacobs MD [address] [place] [phone] [email or web address] Historical LMR Provider 01/15/19 03/30/[address]em CNM [address], [facility] [place] [address] Historical LMR Provider 01/15/19 03/30/21 documented as of this encounter Additional Source Comments The information contained in this document represents components of the legal health record. It is not the complete legal health record.[facility]
--- OUTSIDE RECORDS SUMMARY | 2023-11-16 12:23 | XMS_ITS | Encounter Summary ---
Author Organization [facility] Address [phone] [facility] [place] [address] Care Team Providers Care Social Work Therapist Name Role Phone Jennifer Bridges NP Primary Care Provider Hayley Pandey MD Unavailable + [phone] Chloé Sánchez CNM Unavailable [phone] Dayana Galindo MD Unavailable Ruiz Lewis DO Unavailable Xiomara Cain Morales MD Unavailable Kate Leal MD Unavailable [phone] Jennifer Bridges NP Unavailable [phone] Tari Willams Unavailable [phone] Kody Ayon MD Unavailable [phone] Cynthia Allen CNM Unavailable [phone] Tari Urias DO Unavailable [phone] Palak Culver CNM Unavailable [phone] Damaso Carranza MD Unavailable Ian Youssef MD Unavailable [phone] Jc Jacobs MD Unavailable Eliz Saleem [facility] Unavailable Encounter Details Date Type Department Care Team (Late st Contact Info) Description 04/27/[address] [facility] SOCIAL WORK NURSE ONCOLOGY VIRTUAL DEPARTMENT [address] [place] [phone] Areli Vega MD [address] [place] [address] Social History Tobacco Use Types Packs/Day Years [...] Progress Notes * Areli Vega MD - 04/27/2019 9:36 AM EST Gynecologic Oncology Tumor Board Conference? Disease Center Members: Leti Herbert, Mari Castano, Makenna Roblero, Hermann Martinez, Bharti Johnson, Marce Cole, Avel Flores, Comfort May, Areli Vega, Marcia Groves, Vikas Stephenson, Ryan Levy, Vito Hairston, Oni Barrett, Agustín Talley, Nicolas King, Tevin Perry, Neha Hatfield, Bernarda Garcia, Sadiq Moura, Jennifer Reyes, Nina Ybarra, Nilda Hughes, Ruth Alejandro ?Date of Presentation: 04/27/2019 Patient: ?? Marylou Franco ? 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 Patient deferred surgical management as she desired to have a child. She delivered a child in September 2018. Radiologic Findings:?? No current imaging. Scheduled 04/28 and 04/29. Pathology: Patient Name: MARYLOU SHAFER FINAL PATHOLOGIC DIAGNOSIS: A. ENDOCERVIX, CURETTAGE ([id number], A1; 07/24/2017): Adenocarcinoma in situ. B. ENDOMETRIUM, CURETTAGE ([id number], B1; 07/24/2017): Scant adenocarcinoma in situ. Inactive endometrium. C. CERVIX, CONE EXCISION ([id number], C1-C8; 07/24/2017): 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 Cervical intraepithelial neoplasia 3. NOTE: No definite lymphovascular invasion noted. The adenocarcinoma shows pattern C of invasion. Margins are negative for invasive and in situ carcinoma and for high grade squamous intraepithelial lesion. Selected slides reviewed in consultation with Dr. Hatfield. A/P: 28 yo with a history of a history of at least a stage IB1, grade 2 endocervical adenocarcinomadiagnosed in 2018 now desiring definitive surgical management. Tumor Board recommendation: Recommend imaging with a PET CT scan as well as a pelvic MRI given it has been almost 2 years since her initial diagnosis. If no evidence of disease recommend standard of care for a stage IB1 with surgical management with a radical abdominal hysterectomy, bilateral salpingectomy, and pelvic lymphadenectomy. This letter reflects the discussion of the Gynecologic Oncology Tumor Board at [facility]. If applicable, cases are reviewed using guidelines [...] on filedocumented in this encounter Care Teams Social Work Therapist Relationship Specialty Start Date End Date Jennifer Bridges NP [address] [place] [phone] [email or web address] PCP - General 12/31/18 Hayley Pandey MD [address] [place] [address] Historical LMR Provider 01/15/19 03/30/21 Chloé Sánchez CN [address] [place] [address] [email or web address] Historical LMR Provider 01/15/19 03/30/21 Dayana Galindo MD [address] [place] [address] Historical LMR Provider 01/15/19 03/30/[address] [place] [address] [email or web address] Historical LMR Provider 01/15/19 03/30/21 Cain Morales MD [address] [place] [address] Historical LMR Provider 01/15/19 2 Kate Leal MD [address] [place] [address] [email or web address] Historical LMR Provider 01/15/19 03/30/21 Jennifer Bridges NP [address] [place] [phone] Historical LMR Provider 01/15/19 10/31/19 Tari Willams 15 [facility] 201 [place] [address] Historical LMR Provider 01/15/19 2 Kody Ayon MD [address] [place] [address] [address] [place] [address] Historical LMR Provider 01/15/19 [place] [address] Historical LMR Provider 01/15/19 03/30/21 Tari Urias DO [address] [place] [address] 200 [place] [address] Historical LMR Provider 01/15/19 10/31/19 Palak Culver CNM 15 [facility] 102 [place] [address] Historical LMR Provider 01/15/19 03/30/21 Damaso Carranza MD 15 [facility] 102 [place] [address] Historical LMR Provider 01/15/19 Ian Youssef MD [address] [place] [address] [address] [place] [address] Historical LMR Provider 01/15/19 2 Jc Jacobs MD [address] [place] [address] [email or web address] Historical LMR Provider 01/15/19 03/30/21 Eliz Saleem CNM [employer], [place] [address] Historical LMR Provider 01/15/19 03/30/21 documented as of this encounter Additional Source Comments The information contained in this document represents components of the legal health record. It is not the complete legal health record.[facility]
--- OUTSIDE RECORDS SUMMARY | 2023-11-16 12:23 | XMS_ITS | Encounter Summary ---
Author Organization [facility] Address [phone] [facility] [place] [place] [address] Care Team Providers Care Catering Sous Chef Name Role Phone Jennifer Bridges NP Primary Care Provider Hayley Pandey MD Unavailable + [phone] Chloé Sánchez CNM Unavailable [phone] Dayana Galindo MD Unavailable Ruiz Lewis DO Unavailable Xiomara Cain Morales MD Unavailable Kate Leal MD Unavailable [phone] Jennifer Bridges NP Unavailable [phone] Tari Willams Unavailable [phone] Koyd Ayon MD Unavailable [phone] Cynthia Allen CNM Unavailable [phone] Tari Urias DO Unavailable [phone] Palak Culver CNM Unavailable [phone] Damaso Carranza MD Unavailable Ian Youssef MD Unavailable [phone] Jc Jacobs MD Unavailable [phone] Eilz Saleem [facility] Unavailable Encounter Details Date Type Department Care Team (Late st Contact Info) Description 04/27/2019 9:30 AM EST Office Visit [facility] Pre-Procedure Evaluation Department Please See Appointment Details [place] [phone] Marce Cole MD [address] [place] [address] [email or web address] Anesthesia Record Procedure Summary Procedure Name Responsible [...] Post Op Handoff 1611 An Stop Meds * Agents No agents on file. * Blood No blood administrations on file. Lines, Drains, and Airways Type Details Placement Removal Wound 05/05/19; Incision; Medial, Lower, Other (comment) (vertical); Abdomen 05/05/19 0000 by Estela Plummer RN Urinary Catheter 05/05/19; Two-way 05/05/19 0000 by Estela Plummer, TAWANA 05/17/19 1529 by Discharge Provider, Automatic Epidural Cath Placement Date: 05/05/19; Placement Time: 0939; Placment Location: Thoracic; Tolerance: Tolerated well; Removal Date: 05/05/19; Removal Time: 1610; Insertion Attempts: 1 05/05/19 0939 by Vane Mejia CRNA 05/05/19 1610 by Vane Mejia CRNA Epidural Cath Placement Date: 05/05/19; Placement Time: 0942; Placment Location: Thoracic; Tolerance: Tolerated well; Removal Date: 05/09/19; Removal Time: 929; Insertion Attempts: 1 05/05/19 0942 by Vane [...] as of this encounter Progress Notes * Xena Garcias RN - 04/27/2019 9:30 AM EST Nursing Diagnosis: Knowledge Deficit Pre-procedure nursing goal: Patient/Caregiver will demonstrate understanding of the perioperative process with includes: hygiene, safety, pain scales, and the concepts of Family Centered Care. Interventions: Patient/caregiver was assessed for readiness to learn and baseline knowledge regarding surgical experience. In addition to items identified on PPE check list, the patient/caregiver was given information on pre-op hygiene and pre-op instructions such as no jewelry or valuables, and measures taken to preventadverse events. Pain management was addressed using appropriate pain scale and post op pain management skills. Patient instructed to call surgeon's office for any further question or changes in health. Evaluation: The patient/caregiver verbalizes understanding of the perioperative process and the need to have anadult escort for discharge if having ambulatory surgery. Elective Surgical and Procedural Patients Day Before Surgery/Procedure At 10 PM Stop eating all solid foods or dairy products Stop chewing gum and stop eating candy Stop all tube feedings If your surgeon has provided you with specific diet instructions in preparation for your surgery/procedure such as, bowel prep instructions, please follow them carefully. Remember to drink clear liquids to stay well hydrated unless otherwise instructed by surgeon. After 10 PM While you are awake, please try to drink one or two tall glasses of clear liquids every one to two hours. You may drink any of following clear liquids from the list below. Day of Surgery/Procedure One hour before checking in to the hospital drink one to two tall glasses of clear liquids from thelist below to ensure you are adequately hydrated. After finishing it, please stop drinking. If you are diabetic and feel symptoms of a low blood sugar or your finger stick reading is low, please drink one of the clear liquids that contains sugar such as, apple juice, grape juice, or regularsoda. Approved list of clear liquids: Gatorade?? Powerade?? Clearfast ?? Pedialyte ?? Apple juice Cranberry juice Grape juice Water Regular or diet soda (such as Coke??, Sprite??, Pepsi??) Black coffee or black tea - (NO milk, cream, or non-dairy creamer) Interventions: Patient/caregiver was assessed for readiness to learn and baseline knowledge regarding surgical experience. In addition to items identified on PPE check list, the patient/caregiver was given information on pre-op hygiene and pre-op instructions such as no jewelry or valuables, and measures taken to preventadverse events. Pain management was addressed using appropriate pain scale and post op pain management skills. Patient instructed to call surgeon's office for any further question or changes in health. Evaluation: The patient/caregiver verbalizes understanding of the perioperative process and the need to have anadult escort for discharge if having ambulatory surgery. Specialty Medications ??? Please call your surgeon???s office for instructions regarding NSAIDS and Aspirin. ??? If you need pain medication, it is OK to substitute Tylenol, Ultram, Percocet, or another pain reliever prescribed by your surgeon or Primary Care Physician. ??? Stop Vitamin E supplements at least 1 week before surgery ??? Stop ALL HERBAL SUPPLEMENTS (jina Krill, garlic, gingko and Fish Oil) at least 1 week before surgery. Morning of Surgery: ??? If you use inhalers or eye drops, please bring to hospital on the day of surgery. ??? Please bring your CPAP machine /mask/hoses with you to the hospital on the day of surgery. ??? Report to [address] for [facility] ([facility]). documented in this encounter Plan of Treatment Not on file documented as of this encounter Visit Diagnoses Not on filedocumented in this encounter Care Teams Catering Sous Chef Relationship Specialty Start Date End Date Jennifer Bridges NP [address] [place] [phone] [email or web address] PCP - General 12/31/18 Hayley Pandey MD [address] [place] [address] Historical LMR Provider 01/15/19 03/30/21 Chloé Sánchez CNM [address] [place] [address] Historical LMR Provider 01/15/19 03/30/21 Dayana Galindo MD [address] [place] [address] [email or web address] Historical LMR Provider 01/15/19 03/30/21 Ruiz Lewis DO [address] [place] [address] [email or web address] Historical LMR Provider 01/15/19 03/30/21 Cain Morales MD 10 [facility] 401 [place] [address] Historical LMR Provider 01/15/19 2 Kate Leal MD 15 [facility] 102 [place] [address] [email or web address] Historical LMR Provider 01/15/19 03/30/21 Jennifer Bridges NP 60 [facility] 3 [place] [address] [email or web address] Historical LMR Provider 01/15/19 10/31/19 Tari Willams 15 [facility] [address] [place] [address] Historical LMR Provider 01/15/19 2 Kody Ayon MD 60 [facility] 300 [place] [address] Historical LMR Provider 01/15/19 Cynthia Allen CNM [address] [facility] [address] [place] [address] [email or web address] Historical LMR Provider 01/15/19 03/30/21 Adonay Tari CelesteDO 10 [facility] 200 [place] [address] [email or web address] Historical LMR Provider 01/15/19 10/31/19 Palak Culver CNM 15 [facility] 102 [place] [address] [email or web address] Historical LMR Provider 01/15/19 03/30/21 Damaso Carranza MD 15 [facility] 102 [place] [address] Historical LMR Provider 01/15/19 Ian Youssef MD [address] [place] [address] Historical LMR Provider 01/15/19 Jc Alba MD [address] [place] [address] [email or web address] Historical LMR Provider 01/15/19 03/30/[address] Saleem CNM [address], [facility] [place] [address] Historical LMR Provider 01/15/19 03/30/21 documented as of this encounter Additional Source Comments The information contained in this document represents components of the legal health record. It is not the complete legal health record.[facility]
--- OUTSIDE RECORDS SUMMARY | 2023-11-16 12:23 | XMS_ITS | Clinical Summary ---
Author Organization [facility] [place] [address] Care Team Providers Care Quality Intern Name Role Phone Camryn Roa APRN Primary Care Provider [phone] Social History Tobacco Use Types Packs/Day Years Used Date Smoking Tobacco: Never Assessed Sex and Gender Information Value Date Recorded Sex Assigned at Not on file Gender Identity Not on file Sexual Orientation Not on file Plan of Treatment Health Maintenance Due Date Last Done Comments HIV screen 2008 Hepatitis C Screening 2008 Hepatitis B vaccine (0-59 yrs) (1) 2009 Tdap adult 2009 Tetanus vaccine 2009 HPV test 2020 PAP Smear 2020 Covid-19 Vaccine ( - 2022- season) 2022 Influenza (Flu) vaccine (1 o f 1 - Influenza standard series) 11/22/2023 Care Teams Quality Intern Relationship Specialty Start Date End Date Camryn Roa APRN [address] [place] [address] PCP - General Family Medicine 07/29/21
--- OUTSIDE RECORDS SUMMARY | 2023-11-16 12:23 | XMS_ITS | Encounter Summary ---
Author Organization [facility] Address [phone] [facility] [place] [address] Care Team Providers Care Cadd Technician Name Role Phone Jennifer Bridges NP Primary Care Provider Hayley Pandey MD Unavailable + [phone] Chloé Sánchez CNM Unavailable [phone] Dayana Galindo MD Unavailable Ruiz Lewis DO Unavailable Xiomara Cain Morales MD Unavailable [phone] Kate Leal MD Unavailable [phone] Jennifer Bridges NP Unavailable [phone] Tari Willams Unavailable [phone] Kody Ayon MD Unavailable [phone] Cynthia Allen CNM Unavailable [phone] Tari Urias DO Unavailable [phone] Palak Culver CNM Unavailable [phone] Damaso Carranza MD Unavailable Ian Youssef MD Unavailable [phone] Jc Jacobs MD Unavailable Eliz Saleem JAYCEE Unavailable Encounter Details Date Type Department Care Team (Late st Contact Info) Description 04/21/2019 Documentation [facility] On[facility] [address] [place] [address] Marce Cole MD [address] [place] [address] [email or web address] Social History Tobacco Use Types Packs/Day Years Used Date Smoking Tobacco: Never Sex and Gender Information Value Date Recorded Sex Assigned at Female 01/11/2020 5:24 PM EDT Gender Identity Female 01/11/2020 5:24 PM EDT Sexual Orientation Straight 01/11/2020 5: 24 PM EDT documented as of this encounter Progress Notes * Kameron Dorado - 04/21/2019 9:39 AM EST Consent signed: 04/19/19 PPE: 04/27/19 Procedure date: 05/05/19 Procedure: Radical hyst, salpingectomy, pelvic lymph nodes Post-op: 2 weeks Confirmation sent to patient: 04/21/19 documented in this encounter Plan of Treatment Not on file documented as of this encounter Visit Diagnoses Not on filedocumented in this encounter Care Teams Cadd Technician Relationship Specialty Start Date End Date Jennifer Bridges NP [address] [place] [address] 3 [place] [phone] [email or web address] PCP - General 12/31/18 Hayley Pandey MD [address] [address] [email or web address] Historical LMR Provider 01/15/19 03/30/21 Chloé Sánchez CNM 15 [facility] 102 [place] [address] [email or web address] Historical LMR Provider 01/15/19 03/30/21 Dayana Galindo MD 15 [facility] 102 [place] [address] [email or web address] Historical LMR Provider 01/15/19 03/30/[address] [place] [address] [email or web address] Historical LMR Provider 01/15/19 03/30/21 Cain Morales MD [address] [place] [address] 401 [place] [address] Historical LMR Provider 01/15/19 2 Kate Leal MD 15 [facility] 102 [place] [address] [email or web address] Historical LMR Provider 01/15/19 03/30/21 Jennifer Bridges NP 60 [facility] 3 [place] [address] [email or web address] Historical LMR Provider 01/15/19 10/31/19 Tari Willams 15 [facility] 201 [place] [address] Historical LMR Provider 01/15/19 2 Kody Ayon MD 60 [facility] 300 [place] [address] Historical LMR Provider 01/15/19 Cynthia Allen CNM [employer] [facility], [facility] [place] [address] Historical LMR Provider 01/15/19 03/30/21 Tari Urias DO [address] [place] [address] 200 [place] [address] Historical LMR Provider 01/15/19 10/31/19 Palak Culver CNM [address] [address] [email or web address] Historical LMR Provider 01/15/19 03/30/21 Damaso Carranza MD [address] [place] [address] 102 [place] [address] Historical LMR Provider 01/15/19 Ian Youssef MD [address] [place] [address] Historical LMR Provider 01/15/19 Jc Alba MD [address] [place] [address] [email or web address] Historical LMR Provider 01/15/19 03/30/21 Eliz Saleem CNM [employer], [facility] [place] [address] [email or web address] Historical LMR Provider 01/15/19 03/30/21 documented as of this encounter Additional Source Comments The information contained in this document represents components of the legal health record. It is not the complete legal health record.[facility]
--- OUTSIDE RECORDS SUMMARY | 2023-11-16 12:23 | XMS_ITS | Encounter Summary ---
Author Organization [facility] Address [phone] [facility] [place] [address] Care Team Providers Care Director Of Estate Name Role Phone Jennifer Bridges NP Primary Care Provider Hayley Pandey MD Unavailable + [phone] Chloé Sánchez CNM Unavailable [phone] Dayana Galindo MD Unavailable Ruiz Lewis DO Unavailable Xiomara Cain Morales MD Unavailable Kate Leal MD Unavailable [phone] Jennifer Bridges NP Unavailable [phone] Tari Willams Unavailable [phone] Kody Ayon MD Unavailable [phone] Cynthia Allen CNM Unavailable [phone] Tari Urias DO Unavailable [phone] Palak Culver CNM Unavailable [phone] Damaso Carranza MD Unavailable Ian Youssef MD Unavailable [phone] Jc Jacobs MD Unavailable [phone] Eliz Bridges [facility] Unavailable Reason for Referral * MRI/CAT Scan - Closed Specialty Diagnoses / Procedures Referred By Theresa lo Referred To Contact Radiology Diagnoses Malignant neoplasm of endocervix Procedures CT PET Abdomen/Pelvis Marce Cole MD [address] [place] [address] Referral ID Status Reason Start Date Expiration Date Visits Re quested Visits Authorized [id number] Closed 05/02/2019 05/01/2020 1 1 * MRI/CAT Scan - Closed Specialty Diagnoses / Procedures Referred By Theresa lo Referred To Contact Radiology Diagnoses Malignant neoplasm of endocervix Procedures CT PET Chest Marce Cole MD [address] [place] [address] Referral ID Status Reason Start Date Expiration Date Visits Re quested Visits Authorized [id number] Closed 05/02/2019 05/01/2020 1 1 * MRI/CAT Scan - Closed Specialty Diagnoses / Procedures Referred By Theresa lo Referred To Contact Radiology Diagnoses Malignant neoplasm of endocervix Procedures CT PET Neck Marce Cole MD [address] [place] [address] Referral ID Status Reason Start Date Expiration Date Visits Re quested Visits Authorized [id number] Closed 05/02/2019 05/01/2020 1 1 Reason for Visit * Auth/Cert Specialty Diagnoses / Procedures Referred By Theresa lo Referred To Contact Diagnoses 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 Discharge Disposition: Home or Self Care Social [...] fill ok 15 tablet 05/10/2019 10/04/2019 95-iron vro-pectf-olp 28 mg iron-800 mcg-200 mg Cmpk 11/09/2021 documented as of this encounter Plan of Treatment Not on file documented as of this encounter Procedures Procedure Name Priority Date/Time Associated Diagnosis Comments NM PET CT SKULL BASE TO MID THIGHS Routine 05/02/2019 2:00 PM EST Malignant neoplasm of endocervix CT PET CHEST WITH CONTRAST Routine 05/02/2019 2:00 PM EST Malignant neoplasm of endocervix CT PET ABDOMEN/PELVIS WITH CONTRAST Routine 05/02/2019 2:00 PM EST Malignant neoplasm of endocervix CT PET NECK WITH CONTRAST Routine 05/02/2019 2:00 PM EST Malignant neoplasm of endocervix POCT GLUCOSE Routine 05/02/2019 12:20 PM EST documented in this encounter Results * CT PET ABDOMEN/PELVIS WITH CONTRAST (05/02/2019 2:00 PM EST) Anatomical Region Laterality Modality Abdomen, Pelvis Positron Emissio n Tomography (PET) 05/02/2019 2:35 PM EST Impressions 05/02/2019 8:59 PM EST No abdominopelvic metastases. ATTESTATION: I, Dr. Kiran Krishna as teaching physician, have reviewed the images for this case and if necessary edited the report originally created by Dr. Julius Pierre. Narrative 05/02/2019 8:59 PM EST TECHNIQUE: Diagnostic CT scan of the abdomen and pelvis WITH intravenous contrast COMPARISON: MRI PELVIS (GYNECOLOGICAL) WITH AND WITHOUT CONTRAST FINDINGS: LOWER THORAX: Please refer to report from concurrently performed chest CT. HEPATOBILIARY: Focal fatty infiltration adjacent to the falciform ligament. No suspicious hepatic lesions. No biliary ductal dilatation. Gallbladder is nondistended. SPLEEN: No splenomegaly. PANCREAS: No focal masses or ductal dilatation. ADRENALS: No adrenal nodules. KIDNEYS/URETERS: No hydronephrosis, stones, or solid mass lesions. PELVIC ORGANS/BLADDER: Pelvic organs are better evaluated on recent pelvic MRI 04/29/2019. No CT evident adnexal mass. PERITONEUM / RETROPERITONEUM: No free air or fluid. LYMPH NODES: No lymphadenopathy. VESSELS: Unremarkable. GI TRACT: No distention or wall thickening. Normal appendix. BONES AND SOFT TISSUES: Small fat-containing umbilical hernia. No suspicious osseous lesions. Procedure Note Kiran Krishna MD - 05/02/2019 TECHNIQUE: Diagnostic CT scan of the abdomen and pelvis WITH intravenous contrast COMPARISON: MRI PELVIS (GYNECOLOGICAL) WITH AND WITHOUT [id number] FINDINGS: LOWER THORAX: Please refer to report from concurrently performed chestCT. HEPATOBILIARY: Focal fatty infiltration adjacent to the falciformligament. No suspicious hepatic lesions. No biliary ductal dilatation. Gallbladder is nondistended. SPLEEN: No splenomegaly. PANCREAS: No focal masses or ductal dilatation. ADRENALS: No adrenal nodules. KIDNEYS/URETERS: No hydronephrosis, stones, or solid mass lesions. PELVIC ORGANS/BLADDER: Pelvic organs are better evaluated on recent pelvicMRI 04/29/2019. No CT evident adnexal mass. PERITONEUM / RETROPERITONEUM: No free air or fluid. LYMPH NODES: No lymphadenopathy. VESSELS: Unremarkable. GI TRACT: No distention or wall thickening. Normal appendix. BONES AND SOFT TISSUES: Small fat-containing umbilical hernia. Nosuspicious osseous lesions. IMPRESSION: No abdominopelvic metastases. ATTESTATION: I, Dr. Kiran Krishna as teaching physician, have reviewedthe images for this case and if necessary edited the report originally createdby Dr. Julius Pierre. [facility] [place] IMG CT PETCT * CT PET CHEST WITH CONTRAST (05/02/2019 2:00 PM EST) Anatomical Region Laterality Modality Chest Positron Emissio n Tomography (PET) 05/02/2019 2:18 PM EST Impressions 05/02/2019 4:18 PM EST Staging of cervical carcinoma 3 mm LEFT upper lobe nodule which is nonspecific. RECOMMENDATION: Follow-up chest CT in 3 months or as per clinical protocol Narrative 05/02/2019 4:18 PM EST TECHNIQUE: Diagnostic CT PET CHEST WITH CONTRAST, CT PET NECK WITH CONTRAST HISTORY: As given in the header. COMPARISON: None FINDINGS: Head: The skull base, sinuses, and salivary glands appear normal. Neck: No mass or lymphadenopathy is seen. The thyroid gland is normal. Lungs: ??There is a 3 mm nodule in the LEFT upper lobe on image 127 Airways: ??The major airways are clear. Pleura: There is no evidence of pleural effusion or pneumothorax. Heart and mediastinum: There is soft tissue in the anterior mediastinum with imaging features consistent with residual thymic tissue. There are RIGHT supraclavicular lymph nodes measuring up to 7 mm in short axis. No significant mediastinal, or hilar lymphadenopathy is seen. Cardiac chambers are within normal limits. There is no pericardial effusion. Bones and soft tissues: There is no significant axillary or subpectoral lymphadenopathy. There are mild degenerative changes in the visualized spine. There are no suspicious lytic or blastic lesions. Procedure Note Jaya Betancourt, [facility] CHRISTIANO - 05/02/2019 TECHNIQUE: Diagnostic CT PET CHEST WITH CONTRAST, CT PET NECK WITHCONTRAST HISTORY: As given in the header. COMPARISON: None FINDINGS: Head: The skull base, sinuses, and salivary glands appear normal. Neck: No mass or lymphadenopathy is seen. The thyroid gland is normal. Lungs: There is a 3 mm nodule in the LEFT upper lobe on image 127 Airways: The major airways are clear. Pleura: There is no evidence of pleural effusion or pneumothorax. Heart and mediastinum: There is soft tissue in the anterior mediastinumwith imaging features consistent with residual thymic tissue. There are RIGHT supraclavicular lymph nodes measuring up to 7 mm in short axis. Nosignificant mediastinal, or hilar lymphadenopathy is seen. Cardiac chambers arewithin normal limits. There is no pericardial effusion. Bones and soft tissues: There is no significant axillary or subpectoral lymphadenopathy. There are mild degenerative changes in the visualizedspine. There are no suspicious lytic or blastic lesions. IMPRESSION: Staging of cervical carcinoma 3 mm LEFT upper lobe nodule which is nonspecific. RECOMMENDATION: Follow-up chest CT in 3 months or as per clinical protocol [place] Trey Cole MD IMG CT PETCT * CT PET NECK WITH CONTRAST (05/02/2019 2:00 PM EST) Anatomical Region Laterality Modality Neck Positron Emissio n Tomography (PET) 05/02/2019 2:18 PM EST Impressions 05/02/2019 4:18 PM EST Staging of cervical carcinoma 3 mm LEFT upper lobe nodule which is nonspecific. RECOMMENDATION: Follow-up chest CT in 3 months or as per clinical protocol Narrative 05/02/2019 4:18 PM EST TECHNIQUE: Diagnostic CT PET CHEST WITH CONTRAST, CT PET NECK WITH CONTRAST HISTORY: As given in the header. COMPARISON: None FINDINGS: Head: The skull base, sinuses, and salivary glands appear normal. Neck: No mass or lymphadenopathy is seen. The thyroid gland is normal. Lungs: ??There is a 3 mm nodule in the LEFT upper lobe on image 127 Airways: ??The major airways are clear. Pleura: There is no evidence of pleural effusion or pneumothorax. Heart and mediastinum: There is soft tissue in the anterior mediastinum with imaging features consistent with residual thymic tissue. There are RIGHT supraclavicular lymph nodes measuring up to 7 mm in short axis. No significant mediastinal, or hilar lymphadenopathy is seen. Cardiac chambers are within normal limits. There is no pericardial effusion. Bones and soft tissues: There is no significant axillary or subpectoral lymphadenopathy. There are mild degenerative changes in the visualized spine. There are no suspicious lytic or blastic lesions. Procedure Note Jaya Betancourt, [facility] CHRISTIANO - 05/02/2019 TECHNIQUE: Diagnostic CT PET CHEST WITH CONTRAST, CT PET NECK WITHCONTRAST HISTORY: As given in the header. COMPARISON: None FINDINGS: Head: The skull base, sinuses, and salivary glands appear normal. Neck: No mass or lymphadenopathy is seen. The thyroid gland is normal. Lungs: There is a 3 mm nodule in the LEFT upper lobe on image 127 Airways: The major airways are clear. Pleura: There is no evidence of pleural effusion or pneumothorax. Heart and mediastinum: There is soft tissue in the anterior mediastinumwith imaging features consistent with residual thymic tissue. There are RIGHT supraclavicular lymph nodes measuring up to 7 mm in short axis. Nosignificant mediastinal, or hilar lymphadenopathy is seen. Cardiac chambers arewithin normal limits. There is no pericardial effusion. Bones and soft tissues: There is no significant axillary or subpectoral lymphadenopathy. There are mild degenerative changes in the visualizedspine. There are no suspicious lytic or blastic lesions. IMPRESSION: Staging of cervical carcinoma 3 mm LEFT upper lobe nodule which is nonspecific. RECOMMENDATION: Follow-up chest CT in 3 months or as per clinical protocol Marce Cole MD IMG CT PETCT * POCT Glucose (05/02/2019 12:20 PM EST) WHOLE BLOOD GLUCOSE 80 70 - 110 mg/dL [facility] 05/02/2019 12:2 0 PM EST 05/02/2019 12:32 PM EST Marce Cole MD POINT OF CARE TEST ORDERABLES [facility] [address] [place] [address] documented in this encounter Visit Diagnoses Diagnosis Malignant neoplasm of endocervix documented in this encounter Administered Medications Inactive Administered Medications - up to 3 most recent administrations Medication Order MAR Action Action Date Dose Rate Site barium sulfate (VOLUMEN) oral suspension 450 mL 450 mL, Oral, IMG once as needed, imaging, Starting on Thu05/02/19 at 1241, For 1 dose, Procedural Contrast/Med Active Now, Barium Sulfate (Volumen) oral suspension: Patient to drink 3 bottles of Volumen (450 ml/bottles x 3 = 1350 ml) as tolerated, 45-60 minutes prior to examination before imaging can be performed. Shake bottles of oral contrast vigorously for one full minute to assure uniform suspension. Shake Well Given 05/02/2019 12:42 PM EST 450 mL fludeoxyglucose F-18 (FDG) injection 15 millicurie 15 millicurie, Intravenous, IMG once as needed, for imaging, Starting on Thu05/02/19 at 1241, For 1 dose, Procedural Contrast/Med Active Now Given 05/02/2019 12:24 PM EST 14.92 millicuries iopamidol (ISOVUE-370) 76 % injection 70 mL 70 mL, Intravenous, IMG once as needed, imaging, Starting on Thu05/02/19 at 1241, For 1 dose, Procedural Contrast/Med Active Now, Each mL provides 755 mg of iopamidol equivalent to 370 mg organically bound iodine. Patients should be well hydrated prior to and following procedure. Solution should be at body temperature prior to administration. Given 05/02/2019 2:00 PM EST 80 mL documented in this encounter Care Teams Director Of Estate Relationship Specialty Start Date End Date Jennifer Bridges NP [address] [facility] 3 [place] [phone] [email or web address] PCP - General 12/31/18 Hayley Pandey MD [address] [place] [address] [email or web address] Historical LMR Provider 01/15/19 03/30/21 Chloé Sánchez CNM [address] [place] [address] [email or web address] Historical LMR Provider 01/15/19 03/30/21 Dayana Galindo MD [address] [place] [address] [email or web address] Historical LMR Provider 01/15/19 03/30/21 Ruiz Lewis DO [address] [place] [address] [email or web address] Historical LMR Provider 01/15/19 03/30/21 Cain Morales MD [address] [place] [address] [id number] Historical LMR Provider 01/15/19 Kate Sandoval MD [address] [place] [address] [email or web address] Historical LMR Provider 01/15/19 03/30/21 Jennifer Bridges NP [address] [facility] 3 [place] [address] [email or web address] Historical LMR Provider 01/15/19 10/31/19 Tari Willams 15 [facility] 201 [place] [address] Historical LMR Provider 01/15/19 2 Kody Ayon MD 60 [facility] 300 [place] [address] Historical LMR Provider 01/15/19 Cynthia Allen CNM 67 [facility] [place] [address] Historical LMR Provider 01/15/19 03/30/21 Tari Urias DO [address] [place] [address] [address] [place] [address] Historical LMR Provider 01/15/19 10/31/19 Palak Culver CNM 15 [facility] 102 [place] [address] Historical LMR Provider 01/15/19 03/30/21 Damaso Carranza MD 15 [facility] 102 [place], [place] [id number] [email or web address] Historical LMR Provider 01/15/19 Ian Youssef MD [facility] Jordan Haynes [address] [address] Historical LMR Provider 01/15/19 2 Jc Jacobs MD [address] [place] [address] [email or web address] Historical LMR Provider 01/15/19 03/30/21 Eliz Saleem CNM [address] [place] [address] [email or web address] Historical LMR Provider 01/15/19 03/30/21 documented as of this encounter Additional Source Comments The information contained in this document represents components of the legal health record. It is not the complete legal health record.[facility]
--- OUTSIDE RECORDS SUMMARY | 2023-11-16 12:23 | XMS_ITS | Encounter Summary ---
Author Organization [facility] Address [phone] [facility] [place] [address] Care Team Providers Care Advisor Consultant Name Role Phone Jennifer Bridges NP Primary Care Provider Hayley Pandey MD Unavailable + [phone] Chloé Sánchez CNM Unavailable [phone] Dayana Galindo MD Unavailable Ruiz Lewis DO Unavailable Xiomara Cain Morales MD Unavailable Kate Leal MD Unavailable [phone] Jennifer Bridges NP Unavailable [phone] Tari Willams Unavailable [phone] Kody Ayon MD Unavailable [phone] Cynthia Allen CNM Unavailable [phone] Tari Urias DO Unavailable [phone] Palak Culver CNM Unavailable [phone] Damaso Carranza MD Unavailable Ian Youssef MD Unavailable [phone] Jc Jacobs MD Unavailable Eliz Saleem [facility] Unavailable [phone] Belén Bravo MD Primary Care Provider [phone] Unknown, Unknown MD Primary Care Provider Unavai lable Reason for Referral * MRI/CAT Scan - Closed Specialty Diagnoses / Procedures Referred By Theresa t Referred To Contact Radiology Diagnoses Malignant neoplasm of endocervix Procedures CT PET Abdomen/Pelvis Marce Cole MD [address] [place] [address] Referral ID Status Reason Start Date Expiration Date Visits Re quested Visits Authorized [id number] Closed 05/02/2019 05/01/2020 1 1 * MRI/CAT Scan - Closed Specialty Diagnoses / Procedures Referred By Theresa lo Referred To Contact Radiology Diagnoses Malignant neoplasm of endocervix Procedures CT PET Chest Marce Cole MD [address] [place] [address] Referral ID Status Reason Start Date Expiration Date Visits Re quested Visits Authorized [id number] Closed 05/02/2019 05/01/2020 1 1 * MRI/CAT Scan - Closed Specialty Diagnoses / Procedures Referred By Theresa lo Referred To Contact Radiology Diagnoses Malignant neoplasm of endocervix Procedures CT PET Neck Marce Cole MD [address] [place] [address] Referral ID Status Reason Start Date Expiration Date Visits Re quested Visits Authorized [id number] Closed 05/02/2019 05/01/2020 1 1 Encounter Details Date Type Department Care Team (Late st Contact Info) Description 05/02/2019 Ancillary Orders [facility] [address] [place] [address] [place] [address] Marce Cole MD [facility] [place] [address] [email or web address] Malignant neoplasm of endocervix Social History Tobacco Use Types Packs/Day Years [...] documented as of this encounter Results * CT PET ABDOMEN/PELVIS [...] COMPARISON: MRI PELVIS (GYNECOLOGICAL) WITH AND WITHOUT [id number] FINDINGS: LOWER THORAX: Please refer to report [...] the report originally createdby Dr. Julius Pierre. [facility] [place] IMG CT PETCT * CT [...] or blastic lesions. Procedure [facility] TECHNIQUE: Diagnostic CT PET [...] 3 months or as per clinical protocol [place] Trey Cole MD [facility] PET[facility] * CT PET NECK WITH [...] lytic or blastic lesions. Procedure Note [facility] - 05/02/2019 TECHNIQUE: Diagnostic CT PET [...] 3 months or as per clinical protocol [place] Trey Cole MD IMG CT PETCT documented in this encounter Visit Diagnoses Diagnosis 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 documented in this encounter Additional Health Concerns Infection Onset Date Last Indicated Resolved Time CoV-Risk 01/11/2020 01/11/2020 01/25/2020 1:23 AM EST CoV-Risk 02/13/2020 02/13/2020 02/27/2020 1:23 AM EST documented as of this encounter Care Teams Advisor Consultant Relationship Specialty Start Date End Date Jennifer Bridges NP 60 [facility] 3 [place] [address] [email or web address] PCP - General 12/31/18 10/31/19 Belén Bravo MD [address] [place] [address] [email or web address] PCP - General Family Medicine 11/01/19 06/08/23 Unknown, Benjamin, PCP - General 07/31/23 Hayley Pandey MD [address] [place] [address] [email or web address] Historical LMR Provider 01/15/19 03/30/21 Chloé Sánchez CNM [address] [place] [address] [email or web address] Historical LMR Provider 01/15/19 03/30/21 Dayana Galindo MD [address] [address] [email or web address] Historical LMR Provider 01/15/19 03/30/21 [address] [place] [address] [email or web address] Historical LMR Provider 01/15/19 03/30/21 Cain Morales MD [address] [place], [place] [address] [address] Historical LMR Provider 01/15/19 2 Kate Leal MD 15 [facility] 102 [place] [address] [email or web address] Historical LMR Provider 01/15/19 03/30/21 Jennifer Bridges NP 60 [facility] 3 [place] [address] [email or web address] Historical LMR Provider 01/15/19 10/31/19 Tari Willams 15 [facility] 201 [place] [address] Historical LMR Provider 01/15/19 2 Kody Ayon MD 60 [facility] 300 [place] [address] Historical LMR Provider 01/15/19 Cynthia Allen CNM [address] [place] [address], [place] [address] Historical LMR Provider 01/15/19 03/30/21 Tari Urias DO [address] [facility] 200 [place] [address] Historical LMR Provider 01/15/19 10/31/19 Palak Culver CNM [address] [address] Historical LMR Provider 01/15/19 03/30/21 Damaso Carranza MD [address] [address] Historical LMR Provider 01/15/19 Ian Youssef MD [address] [place] [address] Historical LMR Provider 01/15/19 2 Jc Jacobs MD [address] [place] [address] [email or web address] Historical LMR Provider 01/15/19 03/30/21 Eliz Saleem [email or web address], [place] [address] Historical LMR Provider 01/15/19 03/30/21 documented as of this encounter Additional Source Comments The information contained in this document represents components of the legal health record. It is not the complete legal health record.[facility]
--- OUTSIDE RECORDS SUMMARY | 2023-11-16 12:23 | XMS_ITS | Encounter Summary ---
Author Organization [facility] Address [phone] [facility] [place] [address] Care Team Providers Care Note Taker Name Role Phone Jennifer Bridges NP Primary Care Provider Hayley Pandey MD Unavailable + [phone] Chloé Sánchez CNM Unavailable [phone] Dayana Galindo MD Unavailable Ruiz Lewis DO Unavailable Xiomara Cain Morales MD Unavailable [phone] Kate Leal MD Unavailable [phone] Jennifer Bridges NP Unavailable [phone] Tari Willams Unavailable Kody Ayon MD Unavailable [phone] Cynthia Allen CNM Unavailable [phone] Tari Urias DO Unavailable [phone] Palak Culver CNM Unavailable [phone] Damaso Carranza MD Unavailable Ian Youssef MD Unavailable [phone] Jc Jacobs MD Unavailable Eliz Saleem [facility] Unavailable Reason for Visit * Auth/Cert Specialty Diagnoses / Procedures Referred By Theresa t Referred To Contact Diagnoses 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] Procedures SC RADICAL ABD HYSTEREC+PELV NODES SC REMOVE PELVIS LYMPH NODES HYSTERECTOMY RADICAL LYMPHADENECTOMY PELVIC Referral ID Status Reason Start Date Expiration Date Visits Re quested Visits Authorized [id number] 1 1 Encounter Details Date Type Department Care Team (Late st Contact Info) Description 05/05/2019 10:00 AM EST - 05/05/2019 5:20 PM EST Surgery [facility] [address] [place] [address] Marce Cole MD [address] [place] [address] [email or web address] EXPLORATORY LAPAROTOMY, TOTAL ABDOMINAL RADICAL HYSTERECTOMY, BILATERAL SALPINGECTOMY, UPPER VAGINECTOMY Surgery Details Date/Time Status Location OR Service Patient Class Case Class Case Type Trauma Case? 05/05/19 10:00 AM Posted [facility] [place] Gynecology Surgery Admit Panel 1 Procedure LRB Anes Op Region Wound Class Comments EXPLORATORY LAPAROTOMY, TOTAL ABDOMINAL RADICAL HYSTERECTOMY, BILATERAL SALPINGECTOMY, UPPER VAGINECTOMY N/A General and Epidural Clean Contaminated (2) LYMPHADENECTOMY PELVIC Bilateral General a nd Epidural Surgeon Surgeon Role Service Panel Marce Cole MD Primary Gynecology 1 Special Needs Placed per Kameron on 04/20, dr. Johnson is not using room documented in this encounter Social History Tobacco [...] Sign Reading Time Taken Comments Blood Pressure 82/53 05/05/2019 5:20 PM EST Pulse 100 05/05/2019 5:20 PM EST Temperature 37.4 ??C (99.4 ??F) 05/05/2019 4:00 PM ES T Respiratory Rate 20 05/05/2019 5:15 PM EST Oxygen Saturation 98% 05/05/2019 5:20 PM EST Inhaled Oxygen Concentration - - [...] y.o. female ( = 1990) Home Address: [facility] [address] [facility] [address] (home) What language do you prefer to use when discussing your healthcare?: Anguillan What language do you prefer for written communication?: Anguillan Type of Advance Care Directive(s): Health Care [...] case Staff: Comfort May MD - FellowAreli Vega MD - FellowMagen Garza MD - Anesthesia AttendingMclaren Bay RegionVane bermeo CRNA - CRNAAnesthesia FellowAnesthesia ResidentAnesthesia AttendingMarce Mike MD - Primary 05/06/2019 Exploratory Laparotomy & Washout Marce Cole Open case Staff: Comfort May MD - FellowCRNAAnesthesia Fa[facility] HospitalJabari MD - Anesthesia AttendingKattello, Mich Reeves MD, BERNARD - Anesthesia ResidentVera Valle MD - Anesthesia ResidentMarce Cole MD - Primary Procedures this admission None Non (OR) Procedures: 05/06 314 Note By: Mahamed Bentley MD Pending Results Procedure Component Value Ref Range Date/Time Creatinine (fluid--not CSF) [[id number]] Collected: 05/10/19 0845 Lab Status: In process Specimen: Other from [facility] fluid Updated: 05/10/19 1106 Hospital Course Marylou Hernandez is a 28 y.o. 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 Postoperative course c/b hypotension with increasing pressor requirement, transferred to [place] [address] ICU for further management - then eventually w/ hgb drop, +FAST c/f significant hemoperitoneum; and clinical c/f intraabdominal bleed, s/p re- exploration POD#1. ===== ICU COURSE 05/06/2019 - 05/07/2019, [facility] FLOOR COURSE 05/07-18 ===== The patient was admitted to the [...] in place. The plan is for the hugehs to remain in place for 2 weeks [...] daily. Micronor 1 tab po QD 95-iron gdv-gcsrm-wqq ( + DHA) 28 mg iron-800 mcg-200 [...] iron-800 mcg-200 mg Cmpk Generic drug: 95-iron oaz-chukx-zhy Wellbutrin XL 150 MG ER 24 hr tablet Generic drug: buPROPion Last time this was given: Ask your nurse or doctor Take 150 mg by mouth daily. For depression Where to Get Your Medications These medications were sent to [facility] [address], [address] [place] [address] ?? acetaminophen 325 mg tablet ?? diphenhydrAMINE 25 mg capsule ?? enoxaparin 40 mg/0.4 mL Syrg subcutaneous syringe ?? ibuprofen 600 MG tablet ?? oxyCODONE 5 MG immediate release tablet Hospital Care Team Service: Gynecologic Oncology Inpatient Attending: Marce Cole MD Attending phys phone: Discharge Unit: [facility] Primary Care Physician: Jennifer Bridges, ABELARDO [phone] Transitional Plan Scheduled appointments: Scheduled Appointments (maximum listed = 10) Provider Department Dept Phone Center 05/17/2019 1:00 PM Marce Cole MD [facility] for Gynecology Oncology [phone] 06/20/2019 9:00 AM (Arrive by 8:45 AM) Ryan Barr MD [facility] [phone] Signed Discharge Orders (From admission, onward) Ordered [...] in the hospital: Marce Cole MD at [phone]. 05/10/19 1117 For immediate questions regarding your hospitalization, your medications, and any pending test results please contact the Gynecologic Oncology fellow cathodic protection technician at [phone] and ask him/her to be paged. Comments: For immediate questions regarding your hospitalization, your medications, and any pendingtest results please contact the Gynecologic Oncology fellow cathodic protection technician at [phone] and ask him/herto be paged. Discharge instructions and important events and results Dear Marylou Hernandez, It was a pleasure taking care of you during your hospital stay. As you are aware, you were admittedto the hospital for surgery. If you have any questions or concerns, please call the [facility] clinic at [phone] (option 5), or [phone] for our 24-hour call line. Here is [...] at home: -With breakfast take 400-600mg (2-3 ibgz-rif-diptylh tablets, or 1 prescription tablet) Motrin -3 [...] be sure to reach out. Sincerely, Your [facility] Care Team Opioids: Safe use, storage, [...] unit (a disposal unit is located in [facility] near Outpatient Pharmacy and most police stations now have disposal or take back units) o Find a disposal site near you at this website: https://www.deadiversion.hipixoj.gov/pubdispsearch ??? If no medicine take-back program is [...] for medicines recommended for disposal by flushing. http://www.fda.gov/ForConsumers/ConsumerUpdates/tgz963709.htm Exam Temperature: 36.6 ??C (97.9 ??F) (05/10/19722) [...] HGB 11.7 (L) 05/09/20192039 HGBBG 10.4 (L) 05/06/2019 0519 HCT 34.9 (L) 05/09/20192039 MCH 30.0 05/09/20192039 [...] fill ok 15 tablet 05/10/2019 10/04/2019 95-iron wyk-tbpvt-rvt 28 mg iron-800 mcg-200 mg Cmpk 11/09/2021 documented as of this encounter Progress Notes * Samina Amin RN - 05/10/2019 11:59 [...] Community Services, etc.): Support System:Spouse/significant other Primary signaler: Primary Language:Anguillan Digital Media Specialist: TRANSPORTATION: MEDS/PHARMACY: Prescription benefits: Insurance verified: Bed Hold: INSURANCE/FINANCIAL: Payor: [employer] / Plan: BuyerMLS PPO / Product Type: PPO / Subscriber number: [id number] Subscriber name: ZAC HERNANDEZ Primary Visit Coverage Payer Plan Plan Address Plan Phone Sponsor Code Group Number Group Name [employer] PPO [address] [address] Primary Visit Coverage Subscriber Subscriber ID Subscriber Name Subscriber N Subscriber Address [id number] ZAC HERNANDEZ [address] [address] PCP Confirmed/ PHYSICIANS/Other Supports: Jennifer Bridges APRN CM PLAN/ Discharge planning: Patient/Family/Caregiver discharge preference/goals : Home NEXT Action: Assessment/High Risk Screening:Complete Next Steps:CM will continue to follow Lives with , mother is a nurse, independent prior to admission, lovenox teaching and hughes care instructions to be completed before discharge, lovenox script sent to [facility] in [facility] , anticipate dc to home today, No home care services indicated. Case management will continue to follow the patient with the treatment team and is available for consultation as needed. * Makenna Roblero MD - 05/10/2019 6:10 AM EST [facility] On[facility] Progress Note 05/10/2019 6:16 AM O/E: AFVSS. PM labs stable, hct 34 from 31. UOP over 24 hours 1100cc/ 200 since midnight, JEANETTE drain output over 24 hours 190cc, 100cc since midnight. Patient overall comfortable, tolerated half a piece of pizza and 2 Belarusian ices for dinner. Written for hydrocortisone cream [...] BPs- nml range #Pulm: Intubated POD0-1, Extubated 2-> RA #GI: NPO-> regular diet 05/07, but w/ low intake -mIVF DC'd 05/08AM [ ] ensure tolerating PO without emesis #: Hughes in place plan for 2 weeks. Plan for discharge with hughes. [ ] Strict Is/Os- net positive since admission (s/p 10 IV lasix x1 05/07 AM) DO NOT REMOVE HUGHES #Heme: EBL [...] Edited by: Mj Ramsey MD at 05/10/2019 0521 Discussed with [facility] Oncology fellow, Dr. Vega, and [facility] Onc Attending, Dr. Roblero, who agrees withmanagement and plan. Vane Hill MD OBGYN, PGY-3 Pager [phone] * Amaris Packer RN - 05/10/2019 6:05 [...] pumping. HusbandJessch involved in care. 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 Post-op course c/b HoTN with increase pressor requirement c/f intraabdominal bleeding requiring re- exploration and evacuation of hemoperitoneum. ?? A&Ox3. VSS. Midline incision BANQUET HOUSEPERSON, approximated. Blisters on neck from tegaderm, team [...] A&Ox3. Afebrile. VSS. HR 80s-90s. Midline incision BANQUET HOUSEPERSON, approximated. Blisters on neck from tegaderm, team [...] Martinez MD - 05/09/2019 11:19 AM EST [facility] Anesthesia & Acute Periop Pain Service? Epidural/Peripheral Nerve Block Catheter Progress Note ? Patient: Marylou Hernandez Hospital day: 4 POD: Post Op Day [...] mg 975 mg, Q6H, Oral Given: 05/09 0915 oxyCODONE tablet 5-10 mg 5 mg, Q4H PRN, Oral Given: 05/09 1023 PSYCH ID Vitals and Labs (Last 0 days) No flowsheets data found Therapeutic Meds Medication Dose/Rate, Frequency, Route Last Action buPROPion (WELLBUTRIN SR) SR 12 hr tablet 150 mg 150 mg, Daily, Oral Given: 05/09 0915 Anticoagulants: ANTICOAGULATION ID Vitals and Labs [...] Terrazas MD - 05/09/2019 7:16 AM EST [facility] Progress Note 05/09/2019 7:17 AM O/E: [...] BPs- nml range #Pulm: Intubated POD0-1, Extubated 2-> RA #GI: NPO-> regular diet 05/07, not a ton of intake [ ] encourage -mIVF DC'd 05/08AM #: Hughes in place plan for 2 weeks. Plan for discharge with hughes. [ ] Strict Is/Os- net positive 7.5 L since admission, given 10 IV lasix x1 215 AM DO NOT REMOVE HUGHES #Heme: EBL [...] Edited by: Tressa Terrazas MD at 05/09/2019 9606 Discussed with [facility] Professional Oncology fellow, Dr. Groves, and [facility] Onc Attending, Dr. Cole, who agrees with management and plan. Tressa Terrazas MD PGY3, [id number] Department of Obstetrics and Gynecology [facility] Associated attestation - Marce Cole MD - [...] A&Ox3. Afebrile. VSS. HR 80s-90s. Midline incision CARLIN, approximated. Blisters on neck [...] A&Ox3. Afebrile. VSS. HR 80s-90s. Midline incision BANQUET HOUSEPERSON, CDI. Blisters on neck from tegaderm, team [...] Lee MD - 05/08/2019 2:25 PM EST [facility] Anesthesia & Acute Periop Pain Service? [...] Finn MD - 05/08/2019 6:29 AM EST [facility] Progress Note 05/08/2019 7:42 AM O/E: [...] FU SW consult [ ] discontinue PCEA 2 #CV: HoTN to 80-90s/50-60s in PACU before re-op. Pressors continued in ICU, now weaned off. [ ] CTM BPs- nml range #Pulm: Intubated POD0-1, Extubated 214-> RA #GI: NPO-> regular diet 05/07 -mIVF DC'd 216AM #: Hughes in place plan for 2 weeks. Plan for discharge with hughes. [ ] Strict Is/Os- net positive 7.5 L since admission, given 10 IV lasix x1 215 AM-> net neg 1L [ ] consider repeat lasix dose 216 DO NOT REMOVE HUGHES #Heme: EBL 1000 [...] Finn MD at 05/08/2019 0742 Discussed with [facility] Oncology fellow, Dr. Groves, and [facility] Onc Attending, Dr. Cole, who agrees with management and plan. Kirstin Finn MD, MPH CALCULATING MACHINE MECHANIC PGY-2 P. [phone] Associated attestation - Marce Cole MD - 05/08/2019 7:48 AM EST I saw and evaluated the patient. I agree with the history, findings, assessment and plan documentedby Kirstin Finn MD. * Sejal Myrick, RN - 05/08/2019 5:52 AM EST Nursing Progress [...] received from Keshia GILLIAM. Patient arrived to [facility] at 1800. MD Terrazas notified. A+Ox3. Afebrile. VSS. HR 80s-90s. Midline incision w/ primary dressing, CDI. No c/o pain. Epidural running dilaudid/bupi 4mL/hr; 2mL bolus/20 min lockout/ 10mL an hour. Tele/O2 monitoring. APS following. OOB x1 assist.I/S encouraged. PIV x2. Tolerating small amts clear liquid diet. C/o intermittent nausea. Zofran giv en prior to transfer to [facility] w/ effect. +BS, +flatus per patient report. [...] Note ?? Events: Plan for transfer to [place] [address]. Report called to TAWANA Garcia ?? Neuro: [...] CYU, 10mg IV lasix x 1. Per oil driller onc, hughes to stay in. SK: JEANETTE w/ 120mL serosang output this shift. Midline incision w/ DSD, C/D/I. Small blistered area (3-5, 0.5-1cm blisters) & redness at edges of previous central line dsg site. Other areas with tegaderm without reaction. ID: Afebrile. SOC: Oscar at bedside throughout day. Aware of plans for transfer Breast pumping: Q4h, last pump 1600, dumped. 45 right breast, 40 left breast ?? * Tressa Durand MD - 05/07/2019 12:42 PM EST [facility] Anesthesia & Acute Periop Pain Service? [...] mg, Q4H PRN, IV Given: 05/06 030 Anticoagulants: ANTICOAGULATION ID Vitals and Labs (Last [...] 11:32 AM EST ICU Daily Progress Note [facility] NAME: Clarence Hernandez Date: 05/07/2019 Time: 11:32 AM Hospital Day: 2 Post Op Day #2 ICU Attending: Jeff Maddox MD Surgical Attending: Marce Cole MD Service: Gynecologic Oncology Procedure: Surgical/Procedural Cases on this Admission Case IDs Date Procedure Surgeon Location Status [id number] 05/05/19 EXPLORATORY LAPAROTOMY, TOTAL ABDOMINAL RADICAL HYSTERECTOMY, BILATERAL SALPINGECTOMY, UPPER VAGINECTOMY Marce Cole MD [facility] [id number] 05/06/19 EXPLORATORY LAPAROTOMY & WASHOUT Marce Cole MD [facility] Problem List: Active Hospital Problems Diagnosis Date [...] 1 cmH2O Fluid Balance I/O 05/06 - 05/06 2359 05/07 - 05/07 2359 P.O. 240 I.V. (mL/kg) 5527.9 (93.7) 826 (14) Blood 5350 IV Piggyback 2300 190 Total Intake(mL/kg) 45217.9 (223.4) 1256 (21.3) Urine (mL/kg/hr) 1987 (1.4) [...] strength all ext Data/Results Labs: Recent Labs 05/05/19 19505/05/19 2030 05/06/19 0001 05/06/19 0433 05/06/19 0657 05/07/19 0245 05/07/19 0943 NA [...] hypotension with increasing pressor requirement, transferred to [place] [address] ICU for further management - then eventually [...] to remain in place through discharge per Real Estate Professional (2 weeks) - LR at 75cc/hr -> [...] Status: Full Code (Presumed) Robina Barlow CNP [place] [address] ICU * Tressa Terrazas MD - 05/07/2019 11:27 AM EST [facility] Progress Note 05/07/2019 11:27 AM O/E: [...] BPs- nml range #Pulm: Intubated POD0-1, Extubated 2/14-> RA #GI: NPO-> regular diet 2/15 -Okay to DC mIVF once tolerating clears/diet [...] emailed [ ] lovenox rx Discussed with [facility] Professional Oncology fellow, Dr. Groves, and [facility] Onc Attending, Dr. Cole, who agrees with management and plan. Tressa Terrazas MD PGY3, [id number] Department of Obstetrics and Gynecology [facility] Associated attestation - Marce Cole MD [...] d/t nausea, zofran given with improvement. Hughes, CYU. No bowel movement. ID: On/off febrile, team [...] well approximated w/ clair. DSD changed by oil driller onc team in am. ID: Tmax 99.4 F SOC: , mother at bedside throughout day. Updated by team Breast pumping: Q4h, last pump 2pm, no letdown at 6pm, will attempt later. * Julienne Burrell, BRAKE SHOE REBUILDER - 05/06/2019 3:00 PM EST Pt started shift intubated on VC. Able to transition to PS later in shift. Passed 0/0 SBT. Extubated per order. Positive cuff leak heard. No evidence of inspiratory stridor. Bilateral BS clear. Placed on cool aerosol. * Bouchra Swartz CNP - 05/06/2019 2:01 PM EST ICU Daily Progress Note [facility] ICU NAME: Clarence Hernandez Date: 05/06/2019 Time: 2:01 PM Hospital Day: 1 Post Op Day #1 ICU Attending: Marin Mireles MD Surgical Attending: Marce Cole MD Service: Gynecologic Oncology Procedure: Surgical/Procedural Cases on this Admission Case IDs Date Procedure Surgeon Location Status [id number] 05/05/19 EXPLORATORY LAPAROTOMY, TOTAL ABDOMINAL RADICAL HYSTERECTOMY, BILATERAL SALPINGECTOMY, UPPER VAGINECTOMY Marce Cole MD [facility] [place] Comp [id number] 05/06/19 EXPLORATORY LAPAROTOMY & WASHOUT Marce Cole MD [facility] Problem List: Active Hospital Problems Diagnosis Date [...] 0 cm H20 Airway Mean press: [1 [id number] cmH2O] 1 cmH2O Fluid Balance I/O 05/05 - 05/059 05/06 - 05/06 2359 I.V. (mL/kg) 2383.4 (40.4) 4564.8 (77.4) Blood 2740 5350 IV Piggyback 150 2200 Total Intake(mL/kg) 5273.4 (89.4) 51694.8 (205.3) Urine (mL/kg/hr) 790 1387 (1.7) Drains [...] serosangious Ext: WWP Data/Results Labs: Recent Labs 05/05/19174505/05/19 19505/05/19 2030 05/06/19 0001 05/06/19 0433 05/06/19 0657 [...] 1.3* 1.5* 2.5* -- 1.7 Recent Labs 05/05/19 17405/06/19 0011 05/06/19 0433 05/06/19 0519 05/06/19 0536 [...] No Dose/Rate, BID, Oral See Alternative: 05/06 09 sennosides 8.8 mg/5 mL syrup 8.8 mg 8.8 mg, BID, Oral Ordered Continuous Medication Dose/Rate, Frequency, Route Last Action HYDROmorphone (PF) 10 mcg/mL bupivacaine 1 mg/mL (0.1%) in NS (100 mL) PCEA (Premix CMPD) 6 mL/hr, Continuous, Epid New Ba/14 09 lactated Ringers infusion 75 mL/hr, Continuous, IV [...] 2 mg, Q4H PRN, IV Given: 05/06 011 ondansetron (ZOFRAN-ODT) disintegrating tablet 4 mg No Dose/Rate, Q6H PRN, Oral See Alternative: 05/06 113 oxyCODONE tablet 5-10 mg 5-10 mg, Q4H PRN, Oral Ordered prochlorperazine edisylate (COMPAZINE) injection 5 mg 5 mg, Q4H PRN, IV Given: 05/06 021 Assessment/Plan Marylou Hernandez is a 28 y.o. 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 Postoperative course c/b hypotension with increasing pressor requirement, transferred to [place] [address] ICU for further management. * Post-operative state [...] to remain in place through discharge per Real Estate Professional (2 weeks) ?? ID: - No issues - periop ancef given ?? Endocrine: - Continue : pump and supplies in room ?? Prophylaxis: - DVT: Mechanical - Pneumoboots - Chemical - N/A - GI:Protonix Code Status: Full Code (Presumed) Bouchra Swartz CNP [place] [address] ICU * Sterling Granados MD - 05/06/2019 1:37 PM EST [facility] Anesthesia & Acute Periop Pain Service? [...] 1 mg/mL (0.1%) 6 mL/hr (05/06/19 0906) ??? lactated Ringers 75 mL/hr (05/06/19 1259) [...] mg, Q4H PRN, IV Given: 05/06 299 Anticoagulants: ANTICOAGULATION ID Vitals and Labs (Last [...] - 05/06/2019 8:12 AM EST ICU Staff Umbrella Tipper Machine - Critical Care Progress Note 05/06/2019 Patient: Marylou Hernandez, [id number] Date: 05/06/2019 Hospital Day: 1 Procedures: Surgical/Procedural Cases on this Admission Case IDs Date Procedure Surgeon Location Status [id number] 05/05/19 EXPLORATORY LAPAROTOMY, TOTAL ABDOMINAL RADICAL HYSTERECTOMY, BILATERAL SALPINGECTOMY, UPPER VAGINECTOMY Marce Cole MD [facility] [place] Comp [id number] 05/06/19 EXPLORATORY LAPAROTOMY & WASHOUT Marce Cole MD [facility] 28F with Chiari malformation s/p cranial decompresion/laminectomy, depression s/p ex-lap, radical abdominal hysterectomy, bilateral salpingectomy, bilateral pelvic lymph node dissection for endocervical adenocarcinoma in situ (previously treated with conization, endocervical curettage) now admittedto [place] [address] ICU from PACU with persistent hypotension concerning for bleeding, transfusing now, phenylephrine up to 180 mcg/min, transfuse for hemodynamics, goal hgb >7.0, FAST at bedside positivewith free fluid, per d/w oil driller attd, back to OR at 0350. Neuro: [...] Wiley MD - 05/06/2019 6:03 AM EST [facility] Progress Note 05/06/2019 6:03 AM O/E: [...] 05/06/2019 0600 Gross per 24 hour Intake 42369.97 ml Output 1937 ml Net 57724.97 ml PEx: Gen: Intubated; sedated CV/Pulm: intubated [...] this interval not displayed. CHEM Recent Labs 05/05/19195605/05/19202905/06/19 0001 05/06/19 0433 NA 142 144 142 [...] emailed [ ] lovenox rx Discussed with [facility] Estate Professional Oncology fellow, Dr. May, and [facility] Professional Onc Attending, Dr. Cole, who agrees with management and plan. Sis Wiley MD OBGYN PGY3 [id number] Associated attestation - Marce Cole MD - 05/07/2019 7:13 AM EST I saw and evaluated the patient. I agree with the history, findings, assessment and plan documentedby Sis Wiley MD. Will follow closely post op from re-operation. * Vane Danielle RN - 05/06/2019 3:45 AM EST Nursing Admission [...] Surgical Attending: Marce Cole MD Surgical Service: [facility] Onc Active Hospital Problems Diagnosis Date Noted [...] hypotension with increasing pressor requirement, transferred to [place] [address] ICU for further management. Intra-op EBL was [...] Colposcopy, without biopsy; 10/14/2013; 04/08/2016 - @ [facility] ??? UNCODED SURGICAL HISTORY Abdominal [...] Micronor 1 tab po QD ??? 95-iron cav-woirw-gkp ( + DHA) 28 mg iron-800 mcg-200 [...] file Gets together: Not on file Attends taoism service: Not on file Active member of [...] from last 7 days Lab Units 05/06/19 0001 05/05/19 2030 05/05/19 1957 05/05/19 1746 05/05/19 1551 WBC K/uL 6.61 7.15 5.84 7.25 5.46 HGB g/dL 8.6* 6.0* 5.4* 8.0* 7.2* HCT % 25.4* 17.6* 15.9* 24.3* 21.7* PLT K/uL 149* 183 130* 200 139* Results from last 7 days Lab Units 05/05/19 1551 NEUTROPHIL # K/uL 4.41 Results from last 7 days Lab Units 05/06/19222905/05/19202905/05/19195605/05/19174505/05/19 1551 SODIUM mmol/L 142 144 142 144 [...] Results from last 7 days Lab Units 05/06/191005/05/19202905/05/19 1512 05/05/19 1409 PH, VENOUS 7.32 7.41* [...] hypotension with increasing pressor requirement, transferred to [place] [address] ICU for further management. Neuro: - PCEA [...] to remain in place through discharge per Real Estate Professional ID: - No issues Endocrine: - Continue [...] with conization, endocervical curettage) now admitted to [place] [address] ICU from PACU with persistent hypotension concerning for bleeding, transfusing now, phenylephrine up to 180mcg/min, transfuse for hemodynamics, goal hgb >7.0, FAST at bedside positive with free fluid, per d/w oil driller attd, back to OR at 0350. ? Varsha Jackson MD MPH Critical Care Attending [facility] Pager: [phone] documented in this encounter Procedure Notes * Marce Cole MD - 05/06/2019 4:27 AM EST Full Operative Note Patient Name: Marylou eHrnandez Date of Surgery: 05/06/2019 Pre-Op Dx: S/p Radical hysterectomy/PLND with post operative bleeding Post-Op Dx: S/p Radical hysterectomy/PLND with post operative bleeding Procedure(s): EXPLORATORY LAPAROTOMY & WASHOUT Surgeon(s): Marce Cole MD Fellow Assist: Dr. May Mixer Driver: Jabari Guerrero MD Sample Body Builder: Mich Sauceda MD, BERNARD; Vera Valle MD [...] Fellow: Comfort May MD; Areli Vega MD Mixer Driver: Magen Garza MD EMBEDDED SYSTEMS SOFTWARE DEVELOPER: Vane Mejia CRNA Anesthesia Type: General Estimated [...] present and scrubbed throughout. 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 Gary Snow Mixer Driver: Magen Garza MD EMBEDDED SYSTEM[employer] SOFTWARE DEVELOPER: Vane Mejia CRNA Anesthesia Type: General ASA Code: II Description of Procedure: The patient was brought to the operating room where general anesthesia was felt to be adequate. She was prepped and draped in normal sterile fashion in dorsal lithotomy position in the [facility]. Attention was first turned to placing [...] vagina was then closed utilizing 0 Vicryl [id number] stitches. Attention was then turned to exploring [...] evacuation of hemoperitoneum. ?? VSS. Midline incision BANQUET HOUSEPERSON, approximated. Blisters on neck from tegaderm, team aware. Hydrocortisoneapplied to neck and back for skin rash and itching, Benadryl given, MD aware. Oxy on hold because of rash. PO pain tylenol and ibuprofen with??+effect. X8uhalceq removed??/17. Some nausea this shift,??Zofran and Compazine [...] (24hr): Intake/Output Summary (Last 24 hours) at 05/05/2019 2251 Last data filed at 05/05/2019 2228 Gross per 24 hour Intake 5273.35 ml Output 1740 ml Net 3533.35 ml UOP post-op 0.9cc/kg/hr Gen: Pale appearing woman in NAD, Conversant and mentating well Abd: soft NT, ND midline incision covered with dermabond covering incision Ext: WWP with SCDs on Gu: hughes draining CYU Perineum: deferred. Labs: CBC Recent Labs 05/05/19 1551 05/05/19174505/05/19195605/05/192029 WBC 5.46 7.25 5.84 7.15 HGB 7.2* 8.0* 5.4* 6.0* HCT 21.7* 24.3* 15.9* 17.6* PLT 139* 200 130* 183 NEUT 80.7* -- -- -- CHEM Recent Labs 05/05/19174505/05/19195605/05/192029 NA 144 142 144 K 4.0 4.9 [...] [ ] lovenox rx Estela Dyson MD CALCULATING MACHINE MECHANIC PGY-2 [id number] documented in this encounter Miscellaneous Notes * [...] to remain in place through discharge per Real Estate Professional (2 weeks) - LR at 75cc/hr -> [...] METABOLIC PANEL STAT 05/06/2019 4:33 AM EST CBC Routine 05/06/2019 3:14 AM EST LACTIC [...] METABOLIC PANEL STAT 05/05/2019 10:05 AM EST SC REMOVE PELVIS LYMPH NODES 05/05/2019 9:48 AM EST Malignant neoplasm of endocervix Special Needs Placed per Kameron on 04/20, dr. Johnson is not using room SC RADICAL ABD HYSTEREC+PELV NODES 05/05/2019 9:48 AM [...] 8:45 AM EST) FLUID CREATININE 0.51 mg/dL [facility] Other (Jose medellin fluid) 05/10/2019 8:45 AM EST 05/10/2019 11:06 AM EST Marce Cole MD BODY FLUIDS A ND STOOLS ORDERABLES Performing Organization Address [facility] Co de Phone Number [address] [address] * Chemistry Comment (05/10/2019 6:45 AM EST) Comments (Chemistry) JEANETTE FLUID [facility] 05/10/2019 6:45 AM EST 05/10/2019 6:51 AM EST Yamila GAGE LAB BLOOD ORDERABLES Performing Organization Address [facility] Co de Phone Number [address] [address] * Creatinine (fluid--not CSF) (05/10/2019 6:45 AM EST) FLUID CREATININE 0.57 mg/dL [facility] Comment:Icteric Other (Jose medellin fluid) 05/10/2019 6:45 AM EST 05/10/2019 6:51 AM EST Yamila GAGE BODY FLUIDS AND STOO LS ORDERABLES Performing Organization Address [facility] Co de Phone Number [address] [address] * (ABNORMAL) CBC (05/09/2019 8:40 PM EST) WBC 3.60(L) 4.5 - 11.0 K/uL [facility] RBC 3.90(L) 4.00 - 5.20 M/uL [facility] HGB 11.7(L) 12.0 - 16.0 g/dL [facility] HCT 34.9(L) 36.0 - 46.0 % [facility] PLT 114(L) 150 - 400 K/uL [facility] MCV 89.5 80.0 - 100.0 fL [facility] MCH 30.0 26.0 - 34.0 pg [facility] MCHC 33.5 31.0 - 37.0 g/dL [facility] RDW 13.4 11.5 - 14.5 % [facility] MPV 9.8 8.4 - 12.0 fl [facility] NRBC 0.00 0 - 0.20 /100 WBCs [facility] ABSOLUTE NRBC 0.00 0 - 0.01 K/uL [facility] Blood 05/09/2019 8:40 PM EST 05/09/2019 8:54 PM EST Marce Cole MD LAB BLOOD ORD ERABLES Performing Organization Address [facility] [place] [address] * Magnesium (05/09/2019 8:40 PM EST) MAGNESIUM 1.8 1.7 - 2.4 mg/dL [facility] Blood 05/09/2019 8:40 PM EST 05/09/2019 8:54 PM EST Marce Cole MD LAB BLOOD ORD ERABLES Performing Organization Address [facility] [place] [address] * (ABNORMAL) Basic metabolic panel (05/09/2019 8:40 PM EST) SODIUM 139 135 - 145 mmol/L [facility] POTASSIUM 4.1 3.4 - 5.0 mmol/L [facility] CHLORIDE 102 98 - 108 mmol/L [facility] CO2 25 23 - 32 mmol/L [facility] BUN 7(L) 8 - 25 mg/dL [facility] CREATININE 0.55(L) 0.60 - 1.50 mg/dL [facility] GLUCOSE 113(H) 70 - 110 mg/dL [facility] CALCIUM 9.1 8.5 - 10.5 mg/dL [facility] EGFR >120 >59 mL/min/1. 73m2 [facility] Comment:If patient is black, multiply result by 1.159. Estimated glomerular filtration rate calculated using the CKD-EPI equation. ANION GAP 12 3 - 17 mmol/L [facility] Blood 05/09/2019 8:40 PM EST 05/09/2019 8:54 PM EST Marce Cole MD LAB BLOOD ORD ERABLES Performing Organization Address City/[facility] Co de Phone Number [address] [address] * (ABNORMAL) CBC (05/08/2019 8:50 PM EST) WBC 3.94(L) 4.5 - 11.0 K/uL [facility] RBC 3.61(L) 4.00 - 5.20 M/uL [facility] HGB 11.1(L) 12.0 - 16.0 g/dL [facility] HCT 31.7(L) 36.0 - 46.0 % [facility] PLT 100(L) 150 - 400 K/uL [facility] MCV 87.8 80.0 - 100.0 fL [facility] MCH 30.7 26.0 - 34.0 pg [facility] MCHC 35.0 31.0 - 37.0 g/dL [facility] RDW 13.2 11.5 - 14.5 % [facility] MPV 9.9 8.4 - 12.0 fl [facility] NRBC 0.00 0 - 0.20 /100 WBCs [facility] ABSOLUTE NRBC 0.00 0 - 0.01 K/uL [facility] Blood 05/08/2019 8:50 PM EST 05/08/2019 9:27 PM EST Marce Cole MD LAB BLOOD ORD ERABLES [address] [address] * Magnesium (05/08/2019 8:50 PM EST) MAGNESIUM 1.8 1.7 - 2.4 mg/dL [facility] Blood 05/08/2019 8:50 PM EST 05/08/2019 9:28 PM EST Marce Cole MD LAB BLOOD ORD ERABLES [address] [address] * (ABNORMAL) Basic metabolic panel (05/08/2019 8:50 PM EST) SODIUM 141 135 - 145 mmol/L [facility] POTASSIUM 3.3(L) 3.4 - 5.0 mmol/L [facility] CHLORIDE 102 98 - 108 mmol/L [facility] CO2 25 23 - 32 mmol/L [facility] BUN 6(L) 8 - 25 mg/dL [facility] CREATININE 0.52(L) 0.60 - 1.50 mg/dL [facility] GLUCOSE 111(H) 70 - 110 mg/dL [facility] CALCIUM 8.7 8.5 - 10.5 mg/dL [facility] EGFR >120 >59 mL/min/1. 73m2 [facility] Comment:If patient is black, multiply result by 1.159. Estimated glomerular filtration rate calculated using the CKD-EPI equation. ANION GAP 14 3 - 17 mmol/L [facility] Blood 05/08/2019 8:50 PM EST 05/08/2019 9:28 PM EST Marce Cole MD LAB BLOOD ORD ERABLES Performing Organization Address City/[facility]/ZIP Co de Phone Number [address] [address] * (ABNORMAL) CBC (05/08/2019 5:11 AM EST) WBC 2.80(L) 4.5 - 11.0 K/uL [facility] RBC 3.44(L) 4.00 - 5.20 M/uL [facility] HGB 10.6(L) 12.0 - 16.0 g/dL [facility] HCT 30.3(L) 36.0 - 46.0 % [facility] PLT 74(L) 150 - 400 K/uL [facility] MCV 88.1 80.0 - 100.0 fL [facility] MCH 30.8 26.0 - 34.0 pg [facility] MCHC 35.0 31.0 - 37.0 g/dL [facility] RDW 13.6 11.5 - 14.5 % [facility] MPV 9.6 8.4 - 12.0 fl [facility] NRBC 0.00 0 - 0.20 /100 WBCs [facility] ABSOLUTE NRBC 0.00 0 - 0.01 K/uL [facility] Blood 05/08/2019 5:11 AM EST 05/08/2019 5:44 AM EST Marce Cole MD LAB BLOOD ORD ERABLES Performing Organization Address City/[facility] Co de Phone Number [address] [address] * Prepare Platelets (05/08/2019 12:38 AM EST) Product Code [id number] 05/08/2019 12:38 AM EST [facility] Unit Number [id number] 05/08/19 12:38 AM EST [facility] Product Status Issued, Final 05/08/2019 12:38 AM EST [facility] ABO/Rh of Unit APOS 05/08/2019 12:38 AM EST [facility] Expiration Date/Time [id number] 05/08/2019 12:38 AM EST [facility] Unit Barcode 05/08/2019 12:38 AM EST [facility] Blood Bank BLOOD BANK PRODUCT O RDERABLES Performing Organization Address City/[facility] Co de Phone Number [address] [address] * (ABNORMAL) CBC (05/07/2019 9:08 PM EST) WBC 3.57(L) 4.5 - 11.0 K/uL [facility] RBC 3.19(L) 4.00 - 5.20 M/uL [facility] HGB 9.6(L) 12.0 - 16.0 g/dL [facility] HCT 28.1(L) 36.0 - 46.0 % [facility] PLT 75(L) 150 - 400 K/uL [facility] MCV 88.1 80.0 - 100.0 fL [facility] MCH 30.1 26.0 - 34.0 pg [facility] MCHC 34.2 31.0 - 37.0 g/dL [facility] RDW 13.6 11.5 - 14.5 % [facility] MPV 9.6 8.4 - 12.0 fl [facility] NRBC 0.00 0 - 0.20 /100 WBCs [facility] ABSOLUTE NRBC 0.00 0 - 0.01 K/uL [facility] Blood 05/07/2019 9:08 PM EST 05/07/2019 9:15 PM EST Marce Cole MD LAB BLOOD ORD ERABLES Performing Organization Address [facility] Co de Phone Number [address] [address] * Magnesium (05/07/2019 9:08 PM EST) MAGNESIUM 2.1 1.7 - 2.4 mg/dL [facility] Blood 05/07/2019 9:08 PM EST 05/07/2019 9:16 PM EST Marce Cole MD LAB BLOOD ORD ERABLES Performing Organization Address City/[facility] Co de Phone Number [address] [address] * (ABNORMAL) Basic metabolic panel (05/07/2019 9:08 PM EST) SODIUM 140 135 - 145 mmol/L [facility] POTASSIUM 3.8 3.4 - 5.0 mmol/L [facility] CHLORIDE 101 98 - 108 mmol/L [facility] CO2 25 23 - 32 mmol/L [facility] BUN 5(L) 8 - 25 mg/dL [facility] CREATININE 0.55(L) 0.60 - 1.50 mg/dL [facility] GLUCOSE 87 70 - 110 mg/dL [facility] CALCIUM 8.5 8.5 - 10.5 mg/dL [facility] EGFR >120 >59 mL/min/1. 73m2 [facility] Comment:If patient is black, multiply result by 1.159. Estimated glomerular filtration rate calculated using the CKD-EPI equation. ANION GAP 14 3 - 17 mmol/L [facility] Blood 05/07/2019 9:08 PM EST 05/07/2019 9:16 PM EST Marce Cole MD LAB BLOOD ORD ERABLES [address] [address] * Phosphorus (05/07/2019 4:39 PM EST) PHOSPHORUS 2.7 2.6 - 4.5 mg/dL [facility] Blood 05/07/2019 4:39 PM EST 05/07/2019 4:48 PM EST Robina Barlow NETWORK RELAY TESTER LAB BLOOD ORDERAB LES [address] [address] * Magnesium (05/07/2019 4:39 PM EST) MAGNESIUM 2.3 1.7 - 2.4 mg/dL [facility] Blood 05/07/2019 4:39 PM EST 05/07/2019 4:48 PM EST Bouchra Swartz CNP LAB BLOOD ORDERABLES [address] [address] * (ABNORMAL) CBC (05/07/2019 4:39 PM EST) WBC 3.67(L) 4.5 - 11.0 K/uL [facility] RBC 3.24(L) 4.00 - 5.20 M/uL [facility] HGB 9.8(L) 12.0 - 16.0 g/dL [facility] HCT 28.5(L) 36.0 - 46.0 % [facility] PLT 82(L) 150 - 400 K/uL [facility] MCV 88.0 80.0 - 100.0 fL [facility] MCH 30.2 26.0 - 34.0 pg [facility] MCHC 34.4 31.0 - 37.0 g/dL [facility] RDW 13.8 11.5 - 14.5 % [facility] MPV 10.0 8.4 - 12.0 fl [facility] NRBC 0.00 0 - 0.20 /100 WBCs [facility] ABSOLUTE NRBC 0.00 0 - 0.01 K/uL [facility] Blood 05/07/2019 4:39 PM EST 05/07/2019 4:48 PM EST Bouchra Swartz [facility] LAB BLOOD ORDERABLES Performing Organization Address City/[facility] Co de Phone Number [address] [address] * Potassium (05/07/2019 2:29 PM EST) POTASSIUM 4.0 3.4 - 5.0 mmol/L [facility] Blood 05/07/2019 2:29 PM EST 05/07/2019 2:44 PM EST Robina A Yen NETWORK RELAY TESTER LAB BLOOD ORDERAB LES Performing Organization Address [facility] Co de Phone Number [address] [address] * Potassium (05/07/2019 9:43 AM EST) POTASSIUM 3.6 3.4 - 5.0 mmol/L [facility] Blood 05/07/2019 9:43 AM EST 05/07/2019 9:53 AM EST Robina A Yen NETWORK RELAY TESTER LAB BLOOD ORDERAB LES Performing Organization Address [facility] Co de Phone Number [address] [address] * Magnesium (05/07/2019 9:43 AM EST) MAGNESIUM 1.8 1.7 - 2.4 mg/dL [facility] Blood 05/07/2019 9:43 AM EST 05/07/2019 9:53 AM EST Bouchra Swartz [facility] LAB BLOOD ORDERABLES [address] [address] * Prepare RBC (05/07/2019 6:44 AM EST) Product Code [id number] 05/07/2019 4:35 AM EST [facility] Unit Number [id number] 05/07/19 4:35 AM EST [facility] Crossmatch Interpretation Compatible 05/06/2019 3:57 AM EST [facility] Product Status Issued, Final 020 4:35 AM EST [facility] ABO/Rh of Unit APOS 05/07/2019 4:35 AM EST [facility] Expiration Date/Time [id number] 05/07/2019 4:35 AM EST [facility] Unit Barcode 05/07/2019 4:35 AM EST [facility] Product Code [id number] 05/07/2019 6:44 AM EST [facility] Unit Number [id number] 05/07/19 6:44 AM EST [facility] Crossmatch Interpretation Compatible 05/06/2019 6:36 AM EST [facility] Product Status No Longer Ready 05/07 6:44 AM EST [facility] ABO/Rh of Unit APOS 05/07/2019 6:44 AM EST [facility] Expiration Date/Time [id number] 05/07/2019 6:44 AM EST [facility] Unit Barcode 05/07/2019 6:44 AM EST [facility] Product Code [id number] 05/07/2019 6:44 AM EST [facility] Unit Number [id number] 05/07/19 6:44 AM EST [facility] Crossmatch Interpretation Compatible 05/06/2019 6:36 AM EST [facility] Product Status No Longer Ready 05/07 6:44 AM EST [facility] ABO/Rh of Unit APOS 05/07/2019 6:44 AM EST [facility] Expiration Date/Time [id number] 05/07/2019 6:44 AM EST [facility] Unit Barcode 05/07/2019 6:44 AM EST [facility] Product Code [id number] 05/07/2019 4:35 AM EST [facility] Unit Number [id number] 05/07/19 4:35 AM EST [facility] Crossmatch Interpretation Compatible 05/06/2019 3:57 AM EST [facility] Product Status Issued, Final 020 4:35 AM EST [facility] ABO/Rh of Unit APOS 05/07/2019 4:35 AM EST [facility] Expiration Date/Time [id number] 05/07/2019 4:35 AM EST [facility] Unit Barcode 05/07/2019 4:35 AM EST [facility] 05/05/2019 10: 06 AM EST Blood Bank BLOOD BANK [place] [address] * Prepare RBC (05/07/2019 6:44 AM EST) Product Code [id number] 05/07/2019 6:44 AM EST [facility] Unit Number [id number] 05/07/19 6:44 AM EST [facility] Crossmatch Interpretation Compatible 05/06/2019 3:46 AM EST [facility] Product Status No Longer Ready 05/07 6:44 AM EST [facility] ABO/Rh of Unit APOS 05/07/2019 6:44 AM EST [facility] Expiration Date/Time [id number] 05/07/2019 6:44 AM EST [facility] Unit Barcode 6200 05/07/2019 6:44 AM EST [facility] Product Code [id number] 05/07/2019 6:44 AM EST [facility] Unit Number [id number] 05/07/19 6:44 AM EST [facility] Crossmatch Interpretation Compatible 05/06/2019 6:36 AM EST [facility] Product Status No Longer Ready 05/07 6:44 AM EST [facility] ABO/Rh of Unit APOS 05/07/2019 6:44 AM EST [facility] Expiration Date/Time [id number] 05/07/2019 6:44 AM EST [facility] Unit Barcode 6200 05/07/2019 6:44 AM EST [facility] Product Code [id number] 05/07/2019 4:35 AM EST [facility] Unit Number [id number] 05/07/19 4:35 AM EST [facility] Crossmatch Interpretation Compatible 05/06/2019 3:46 AM EST [facility] Product Status Issued, Final 020 4:35 AM EST [facility] ABO/Rh of Unit APOS 05/07/2019 4:35 AM EST [facility] Expiration Date/Time [id number] 05/07/2019 4:35 AM EST [facility] Unit Barcode 6200 05/07/2019 4:35 AM EST [facility] Product Code [id number] 05/07/2019 6:44 AM EST [facility] Unit Number [id number] 05/07/19 6:44 AM EST [facility] Crossmatch Interpretation Compatible 05/06/2019 6:36 AM EST [facility] Product Status No Longer Ready 05/07 6:44 AM EST [facility] ABO/Rh of Unit APOS 05/07/2019 6:44 AM EST [facility] Expiration Date/Time [id number] 05/07/2019 6:44 AM EST [facility] Unit Barcode 6200 05/07/2019 6:44 AM EST [facility] 05/05/2019 10: 06 AM EST Ana Lamas [facility] BLOOD BANK PRODUCT O RDERABLES [address] [address] * Prepare Platelets (05/07/2019 4:35 AM EST) Product Code [id number] 05/07/2019 4:35 AM EST [facility] Unit Number [id number] 05/07/19 4:35 AM EST [facility] Product Status Issued, Final 05/07/2019 4:35 AM EST [facility] ABO/Rh of Unit APOS 05/07/2019 4:35 AM EST [facility] Expiration Date/Time [id number] 05/07/2019 4:35 AM EST [facility] Unit Barcode 6200 05/07/2019 4:35 AM EST [facility] Blood Bank BLOOD BANK PRODUCT O RDERABLES [address] [address] * Prepare Plasma (05/07/2019 4:35 AM EST) Product Code [id number] 05/07/2019 4:35 AM EST [facility] Unit Number [id number] 05/07/19 4:35 AM EST [facility] Product Status Issued, Final 05/07/2019 4:35 AM EST [facility] ABO/Rh of Unit ANEG 05/07/2019 4:35 AM EST [facility] Expiration Date/Time [id number] 05/07/2019 4:35 AM EST [facility] Unit Barcode 05/07/2019 4:35 AM EST [facility] Product Code [id number] 05/06/2019 6:33 AM EST [facility] Unit Number [id number] 05/06/19 6:33 AM EST [facility] Product Status No Longer Ready 05/06/2019 6:33 AM EST [facility] ABO/Rh of Unit APOS 05/06/2019 6:33 AM EST [facility] Expiration Date/Time [id number] 05/06/2019 6:33 AM EST [facility] Unit Barcode 05/06/2019 6:33 AM EST [facility] Product Code [id number] 05/07/2019 4:35 AM EST [facility] Unit Number [id number] 05/07/19 4:35 AM EST [facility] Product Status Issued, Final 05/07/2019 4:35 AM EST [facility] ABO/Rh of Unit APOS 05/07/2019 4:35 AM EST [facility] Expiration Date/Time [id number] 05/07/2019 4:35 AM EST [facility] Unit Barcode 05/07/2019 4:35 AM EST [facility] Product Code [id number] 05/06/2019 6:33 AM EST [facility] Unit Number [id number] 05/06/19 6:33 AM EST [facility] Product Status No Longer Ready 05/06/2019 6:33 AM EST [facility] ABO/Rh of Unit APOS 05/06/2019 6:33 AM EST [facility] Expiration Date/Time [id number] 05/06/2019 6:33 AM EST [facility] Unit Barcode 05/06/2019 6:33 AM EST [facility] Blood Bank BLOOD BANK PRODUCT O RDERABLES [facility] [address] [place] [address] * Prepare Plasma (05/07/2019 4:35 AM EST) Product Code [id number] 05/07/2019 4:35 AM EST [facility] Unit Number [id number] 05/07/19 4:35 AM EST [facility] Product Status Issued, Final 05/07/2019 4:35 AM EST [facility] ABO/Rh of Unit APOS 05/07/2019 4:35 AM EST [facility] Expiration Date/Time [id number] 05/07/2019 4:35 AM EST [facility] Unit Barcode 05/07/2019 4:35 AM EST [facility] Product Code [id number] 05/07/2019 4:35 AM EST [facility] Unit Number [id number] 05/07/19 4:35 AM EST [facility] Product Status Issued, Final 05/07/2019 4:35 AM EST [facility] ABO/Rh of Unit APOS 05/07/2019 4:35 AM EST [facility] Expiration Date/Time [id number] 05/07/2019 4:35 AM EST [facility] Unit Barcode 05/07/2019 4:35 AM EST [facility] Product Code [id number] 05/07/2019 4:35 AM EST [facility] Unit Number [id number] 05/07/19 4:35 AM EST [facility] Product Status Issued, Final 05/07/2019 4:35 AM EST [facility] ABO/Rh of Unit APOS 05/07/2019 4:35 AM EST [facility] Expiration Date/Time [id number] 05/07/2019 4:35 AM EST [facility] Unit Barcode 05/07/2019 4:35 AM EST [facility] Product Code [id number] 05/07/2019 4:35 AM EST [facility] Unit Number [id number] 05/07/19 4:35 AM EST [facility] Product Status Issued, Final 05/07/2019 4:35 AM EST [facility] ABO/Rh of Unit APOS 05/07/2019 4:35 AM EST [facility] Expiration Date/Time [id number] 05/07/2019 4:35 AM EST [facility] Unit Barcode 05/07/2019 4:35 AM EST [facility] Ana Lamas CHILDCARE ADMINISTRATOR BLOOD BANK PRODUCT O RDERABLES Performing Organization Address [facility] Co de Phone Number [address] [address] * Prepare RBC (05/07/2019 4:35 AM EST) Product Code [id number] 05/07/2019 4:35 AM EST [facility] Unit Number [id number] 05/07/19 20 4:35 AM EST [facility] Crossmatch Interpretation Compatible 05/06/2019 2:31 AM EST [facility] Product Status Issued, Final 020 4:35 AM EST [facility] ABO/Rh of Unit OPOS 05/07/2019 4:35 AM EST [facility] Expiration Date/Time [id number] 05/07/2019 4:35 AM EST [facility] Unit Barcode 5100 05/07/2019 4:35 AM EST [facility] 05/05/2019 10: 06 AM EST Marce Cole MD BLOOD BANK SC ODUCT ORDERABLES Performing Organization Address [facility] Co de Phone Number [address] [address] * PT-INR (05/07/2019 4:32 AM EST) PT 14.4 11.5 - 14.5 sec [facility] INR 1.1 0.9 - 1.1 [facility] Blood 05/07/2019 4:32 AM EST 05/07/2019 4:39 AM EST Ana Lamas CNP LAB BLOOD ORDERABLES Performing Organization Address City/[facility]/ZIP Co de Phone Number [address] [address] * PTT (05/07/2019 4:32 AM EST) APTT 29.4 22.0 - 36.0 sec [facility] Comment: Due to new reagent, the standard PTT heparin therapeutic range has changed to 70-100 seconds (instead of 60-80 seconds). Check MAR for the target range that is ordered for your patient. Blood 05/07/2019 4:32 AM EST 05/07/2019 4:39 AM EST Ana Lamas [facility] LAB BLOOD ORDERABLES Performing Organization Address [facility] Co de Phone Number [address] [address] * (ABNORMAL) Phosphorus (05/07/2019 2:45 AM EST) PHOSPHORUS 1.3(L) 2.6 - 4.5 mg/dL [facility] Blood 05/07/2019 2:45 AM EST 05/07/2019 2:56 AM EST Ana Lamas [facility] LAB BLOOD ORDERABLES Performing Organization Address [facility] de Phone Number [address] [address] * Magnesium (05/07/2019 2:45 AM EST) MAGNESIUM 1.8 1.7 - 2.4 mg/dL [facility] Blood 05/07/2019 2:45 AM EST 05/07/2019 2:56 AM EST Bouchra Swartz [facility] LAB BLOOD ORDERABLES Performing Organization Address [facility] Co de Phone Number [address] [address] * (ABNORMAL) CBC (05/07/2019 2:45 AM EST) WBC 4.04(L) 4.5 - 11.0 K/uL [facility] RBC 3.20(L) 4.00 - 5.20 M/uL [facility] HGB 9.6(L) 12.0 - 16.0 g/dL [facility] HCT 27.9(L) 36.0 - 46.0 % [facility] PLT 71(L) 150 - 400 K/uL [facility] MCV 87.2 80.0 - 100.0 fL [facility] MCH 30.0 26.0 - 34.0 pg [facility] MCHC 34.4 31.0 - 37.0 g/dL [facility] RDW 14.0 11.5 - 14.5 % [facility] MPV 9.5 8.4 - 12.0 fl [facility] NRBC 0.00 0 - 0.20 /100 WBCs [facility] ABSOLUTE NRBC 0.00 0 - 0.01 K/uL [facility] Blood 05/07/2019 2:45 AM EST 05/07/2019 2:57 AM EST Bouchra Swartz CNP LAB BLOOD ORDERABLES Performing Organization Address City/[facility]/ZIP Co de Phone Number [address] [address] * (ABNORMAL) Basic metabolic panel (05/07/2019 2:45 AM EST) SODIUM 140 135 - 145 mmol/L [facility] POTASSIUM 3.3(L) 3.4 - 5.0 mmol/L [facility] CHLORIDE 104 98 - 108 mmol/L [facility] CO2 24 23 - 32 mmol/L [facility] BUN 6(L) 8 - 25 mg/dL [facility] CREATININE 0.63 0.60 - 1.50 mg/dL [facility] GLUCOSE 87 70 - 110 mg/dL [facility] CALCIUM 7.7(L) 8.5 - 10.5 mg/dL [facility] EGFR >120 >59 mL/min/1. 73m2 [facility] Comment:If patient is black, multiply result by 1.159. Estimated glomerular filtration rate calculated using the CKD-EPI equation. ANION GAP 12 3 - 17 mmol/L [facility] Blood 05/07/2019 2:45 AM EST 05/07/2019 2:56 AM EST Marce Cole MD LAB BLOOD ORD ERABLES [address] [address] * Prepare RBC (05/07/2019 12:36 AM EST) Product Code [id number] 05/07/2019 12:36 AM EST [facility] Unit Number [id number] 05/07/19 12:36 AM EST [facility] Crossmatch Interpretation Compatible 05/05/2019 8:35 PM EST [facility] Product Status Issued, Final 12:36 AM EST [facility] ABO/Rh of Unit APOS 05/07/2019 12:36 AM EST [facility] Expiration Date/Time [id number] 05/07/2019 12:36 AM EST [facility] Unit Barcode 05/07/2019 12:36 AM EST [facility] Product Code [id number] 05/07/2019 12:36 AM EST [facility] Unit Number [id number] 05/07/19 12:36 AM EST [facility] Crossmatch Interpretation Compatible 05/05/2019 8:35 PM EST [facility] Product Status Issued, Final 12:36 AM EST [facility] ABO/Rh of Unit APOS 05/07/2019 12:36 AM EST [facility] Expiration Date/Time [id number] 05/07/2019 12:36 AM EST [facility] Unit Barcode 05/07/2019 12:36 AM EST [facility] 05/05/2019 10: 06 AM EST Sal Shaw MD, [facility] BLOOD BANK PRODUCT O RDERABLES [address] [address] * (ABNORMAL) CBC (05/06/2019 10:36 PM EST) WBC 4.37(L) 4.5 - 11.0 K/uL [facility] RBC 3.19(L) 4.00 - 5.20 M/uL [facility] HGB 9.7(L) 12.0 - 16.0 g/dL [facility] HCT 27.9(L) 36.0 - 46.0 % [facility] PLT 70(L) 150 - 400 K/uL [facility] MCV 87.5 80.0 - 100.0 fL [facility] MCH 30.4 26.0 - 34.0 pg [facility] MCHC 34.8 31.0 - 37.0 g/dL [facility] RDW 14.0 11.5 - 14.5 % [facility] MPV 9.2 8.4 - 12.0 fl [facility] NRBC 0.00 0 - 0.20 /100 WBCs [facility] ABSOLUTE NRBC 0.00 0 - 0.01 K/uL [facility] Blood 05/06/2019 10:3 6 PM EST 05/06/2019 11:32 PM EST Ana Lamas CHILDCARE ADMINISTRATOR LAB BLOOD ORDERABLES Performing Organization Address City/[facility]/ZIP Co de Phone Number [address] [address] * (ABNORMAL) Magnesium (05/06/2019 3:52 PM EST) Pathologist [facility] MAGNESIUM 1.6(L) 1.7 - 2.4 mg/dL [facility] Blood 05/06/2019 3:52 PM EST 05/06/2019 4:07 PM EST Bouchra Swartz CHILDCARE ADMINISTRATOR LAB BLOOD ORDERABLES Performing Organization Address City/[facility] Co de Phone Number [address] [address] * (ABNORMAL) CBC (05/06/2019 3:51 PM EST) WBC 3.77(L) 4.5 - 11.0 K/uL [facility] RBC 3.29(L) 4.00 - 5.20 M/uL [facility] HGB 10.0(L) 12.0 - 16.0 g/dL [facility] HCT 29.2(L) 36.0 - 46.0 % [facility] PLT 77(L) 150 - 400 K/uL [facility] MCV 88.8 80.0 - 100.0 fL [facility] MCH 30.4 26.0 - 34.0 pg [facility] MCHC 34.2 31.0 - 37.0 g/dL [facility] RDW 13.9 11.5 - 14.5 % [facility] MPV 9.3 8.4 - 12.0 fl [facility] NRBC 0.00 0 - 0.20 /100 WBCs [facility] ABSOLUTE NRBC 0.00 0 - 0.01 K/uL [facility] Blood 05/06/2019 3:51 PM EST 05/06/2019 4:06 PM EST Bouchra Swartz CNP LAB BLOOD ORDERABLES [address] [address] * Lactate (05/06/2019 3:51 PM EST) LACTIC ACID (MMOL/L) 0.7 0.5 - 2.0 mmol/L [facility] Blood 05/06/2019 3:51 PM EST 05/06/2019 4:06 PM EST Marce Cole MD LAB BLOOD ORD ERABLES Performing Organization Address [facility]/ZIP Co de Phone Number [address] [address] * Ionized calcium (05/06/2019 12:37 PM EST) IONIZED CALCIUM 1.26 1.14 - 1.30 mmol/L [facility] Blood 05/06/2019 12:3 7 PM EST 05/06/2019 12:47 PM EST Bouchra Swartz CNP LAB BLOOD ORDERABLES Performing Organization Address [facility]/ZIP Co de Phone Number [address] [address] * PTT (05/06/2019 12:37 PM EST) APTT 29.6 22.0 - 36.0 sec [facility] Comment: Due to new reagent, the standard PTT heparin therapeutic range has changed to 70-100 seconds (instead of 60-80 seconds). Check MAR for the target range that is ordered for your patient. Blood 05/06/2019 12:3 7 PM EST 05/06/2019 12:47 PM EST Bouchra Swartz [facility] LAB BLOOD ORDERABLES Performing Organization Address City/[facility]/ZIP Co de Phone Number [address] [address] * (ABNORMAL) PT-INR (05/06/2019 12:37 PM EST) PT 15.5(H) 11.5 - 14.5 sec [facility] INR 1.2(H) 0.9 - 1.1 [facility] Blood 05/06/2019 12:3 7 PM EST 05/06/2019 12:47 PM EST Bouchra Swartz CNP LAB BLOOD ORDERABLES Performing Organization Address [facility] Co de Phone Number [address] [address] * (ABNORMAL) Arterial blood gas (05/06/2019 11:43 AM EST) FIO2 0.30 FIO2/L min [facility] PH 7.38 7.35 - 7.45 [facility] PCO2 42 35 - 42 mm[Hg] [facility] PO2 115(H) 80 - 100 mm[Hg] [facility] Base Excess, unspecified NEG 0.0 - 3.0 mmol/L [facility] Comment:0.9NEG HCO3, unspecified 24 24 - 30 mmol/L [facility] Blood 05/06/2019 11:4 3 AM EST 05/06/2019 11:54 AM EST Bouchar Swartz CNP LAB BLOOD ORDERABLES Performing Organization Address [facility] de Phone Number [address] [address] * (ABNORMAL) Arterial blood gas (05/06/2019 9:36 AM EST) FIO2 0.35 FIO2/L min [facility] PH 7.59(H) 7.35 - 7.45 [facility] PCO2 25(L) 35 - 42 mm[Hg] [facility] PO2 190(H) 80 - 100 mm[Hg] [facility] Base Excess, unspecified 2.0 0.0 - 3.0 mmol/L [facility] HCO3, unspecified 23(L) 24 - 30 mmol/L [facility] Blood 05/06/2019 9:36 AM EST 05/06/2019 9:50 AM EST Bouchra Swartz CHILDCARE ADMINISTRATOR LAB BLOOD ORDERABLES [address] [address] * (ABNORMAL) CBC (05/06/2019 9:36 AM EST) WBC 3.29(L) 4.5 - 11.0 K/uL [facility] RBC 3.37(L) 4.00 - 5.20 M/uL [facility] HGB 10.2(L) 12.0 - 16.0 g/dL [facility] HCT 29.3(L) 36.0 - 46.0 % [facility] PLT 67(L) 150 - 400 K/uL [facility] MCV 86.9 80.0 - 100.0 fL [facility] MCH 30.3 26.0 - 34.0 pg [facility] MCHC 34.8 31.0 - 37.0 g/dL [facility] RDW 13.8 11.5 - 14.5 % [facility] MPV 9.7 8.4 - 12.0 fl [facility] NRBC 0.00 0 - 0.20 /100 WBCs [facility] ABSOLUTE NRBC 0.00 0 - 0.01 K/uL [facility] Blood 05/06/2019 9:36 AM EST 05/06/2019 11:17 AM EST Bouchra Swartz [facility] LAB BLOOD ORDERABLES [address] [address] * (ABNORMAL) Lactate (05/06/2019 9:36 AM EST) LACTIC ACID (MMOL/L) 2.5(H) 0.5 - 2.0 mmol/L [facility] Blood 05/06/2019 9:36 AM EST 05/06/2019 11:17 AM EST Marce Cole MD LAB BLOOD ORD ERABLES [address] [address] * (ABNORMAL) Lactate (05/06/2019 8:31 AM EST) LACTIC ACID (MMOL/L) 2.2(H) 0.5 - 2.0 mmol/L [facility] Blood 05/06/2019 8:31 AM EST 05/06/2019 8:42 AM EST Bouchra Swartz CHILDCARE ADMINISTRATOR LAB BLOOD ORDERABLES [address] [address] * XR Chest Portable (05/06/2019 7:18 AM [...] originally createdby Dr. Kong Zuleta. Bouchra Swartz [facility] IM XR CHEST * XR ABDOMEN 1 VIEW [...] originally createdby Dr. Barak Raya. Bouchra Swartz CHILDCARE ADMINISTRATOR IMG XR ABDOMEN * Magnesium (05/06/2019 6:57 AM EST) MAGNESIUM 1.7 1.7 - 2.4 mg/dL [facility] Blood 05/06/2019 6:57 AM EST 05/06/2019 7:07 AM EST Marce Cole MD LAB BLOOD ORD ERABLES [address] [address] * (ABNORMAL) Basic metabolic panel (05/06/2019 6:57 AM EST) SODIUM 139 135 - 145 mmol/L [facility] POTASSIUM 4.0 3.4 - 5.0 mmol/L [facility] CHLORIDE 107 98 - 108 mmol/L [facility] CO2 22(L) 23 - 32 mmol/L [facility] BUN 9 8 - 25 mg/dL [facility] CREATININE 0.70 0.60 - 1.50 mg/dL [facility] GLUCOSE 146(H) 70 - 110 mg/dL [facility] CALCIUM 10.7(H) 8.5 - 10.5 mg/dL [facility] EGFR 118 >59 mL/min/1. 73m2 [facility] Comment:If patient is black, multiply result by 1.159. Estimated glomerular filtration rate calculated using the CKD-EPI equation. ANION GAP 10 3 - 17 mmol/L [facility] Blood 05/06/2019 6:57 AM EST 05/06/2019 7:07 AM EST Marce Cole MD LAB BLOOD ORD ERABLES [address] [address] * (ABNORMAL) CBC (05/06/2019 6:57 AM EST) WBC 2.83(L) 4.5 - 11.0 K/uL [facility] RBC 3.13(L) 4.00 - 5.20 M/uL [facility] HGB 9.4(L) 12.0 - 16.0 g/dL [facility] HCT 28.1(L) 36.0 - 46.0 % [facility] PLT 57(L) 150 - 400 K/uL [facility] MCV 89.8 80.0 - 100.0 fL [facility] MCH 30.0 26.0 - 34.0 pg [facility] MCHC 33.5 31.0 - 37.0 g/dL [facility] RDW 13.7 11.5 - 14.5 % [facility] MPV 9.2 8.4 - 12.0 fl [facility] NRBC 0.00 0 - 0.20 /100 WBCs [facility] ABSOLUTE NRBC 0.00 0 - 0.01 K/uL [facility] Blood 05/06/2019 6:57 AM EST 05/06/2019 7:06 AM EST Marce Cole MD LAB BLOOD ORD ERABLES Performing Organization Address City/[facility]/ZIP Co de Phone Number [address] [address] * Fibrinogen (05/06/2019 5:36 AM EST) FIBRINOGEN 218 150 - 400 mg/dL [facility] Blood 05/06/2019 5:36 AM EST 05/06/2019 5:42 AM EST Jabari Guerrero MD LAB BLOOD ORDERAB LES [address] [address] * PTT (05/06/2019 5:36 AM EST) APTT 35.3 22.0 - 36.0 sec [facility] Comment: Due to new reagent, the standard PTT heparin therapeutic range has changed to 70-100 seconds (instead of 60-80 seconds). Check MAR for the target range that is ordered for your patient. Blood 05/06/2019 5:36 AM EST 05/06/2019 5:42 AM EST Jabari Guerrero MD LAB BLOOD ORDERAB LES Performing Organization Address City/[facility] Co de Phone Number [address] [address] * (ABNORMAL) PT-INR (05/06/2019 5:36 AM EST) PT 16.6(H) 11.5 - 14.5 sec [facility] INR 1.4(H) 0.9 - 1.1 [facility] Blood 05/06/2019 5:36 AM EST 05/06/2019 5:42 AM EST Jabari Guerrero MD LAB BLOOD ORDERAB LES Performing Organization Address [facility] Co de Phone Number [address] [address] * Fibrinogen (05/06/2019 5:19 AM EST) FIBRINOGEN 202 150 - 400 mg/dL [facility] Blood 05/06/2019 5:19 AM EST 05/06/2019 5:26 AM EST Jabari Guerrero MD LAB BLOOD ORDERAB LES Performing Organization Address City/[facility]/ZIP Co de Phone Number [address] [address] * (ABNORMAL) PTT (05/06/2019 5:19 AM EST) APTT 36.2(H) 22.0 - 36.0 sec [facility] Comment: Due to new reagent, the standard PTT heparin therapeutic range has changed to 70-100 seconds (instead of 60-80 seconds). Check MAR for the target range that is ordered for your patient. Blood 05/06/2019 5:19 AM EST 05/06/2019 5:26 AM EST Jabari Guerrero MD LAB BLOOD ORDERAB LES Performing Organization Address City/[facility]/ZIP Co de Phone Number [address] [address] * (ABNORMAL) PT-INR (05/06/2019 5:19 AM EST) PT 17.7(H) 11.5 - 14.5 sec [facility] INR 1.5(H) 0.9 - 1.1 [facility] Blood 05/06/2019 5:19 AM EST 05/06/2019 5:26 AM EST Jabari Guerrero MD LAB BLOOD ORDERAB LES Performing Organization Address City/[facility]/ZIP Co de Phone Number [address] [address] * (ABNORMAL) CBC (05/06/2019 5:19 AM EST) WBC 5.28 4.5 - 11.0 K/uL [facility] RBC 3.31(L) 4.00 - 5.20 M/uL [facility] HGB 10.1(L) 12.0 - 16.0 g/dL [facility] HCT 29.9(L) 36.0 - 46.0 % [facility] PLT 73(L) 150 - 400 K/uL [facility] MCV 90.3 80.0 - 100.0 fL [facility] MCH 30.5 26.0 - 34.0 pg [facility] MCHC 33.8 31.0 - 37.0 g/dL [facility] RDW 13.7 11.5 - 14.5 % [facility] MPV 9.3 8.4 - 12.0 fl [facility] NRBC 0.00 0 - 0.20 /100 WBCs [facility] ABSOLUTE NRBC 0.00 0 - 0.01 K/uL [facility] Blood 05/06/2019 5:19 AM EST 05/06/2019 5:25 AM EST Jabari Guerrero MD LAB BLOOD ORDERAB LES Performing Organization Address City/[facility] Co de Phone Number [address] [address] * (ABNORMAL) Lactate (blood gas) (05/06/2019 5:19 AM EST) Lactate, blood 3.0(H) 0.5 - 2.0 mmol/L [facility] Blood 05/06/2019 5:19 AM EST 05/06/2019 5:26 AM EST Jabari Guerrero MD LAB BLOOD ORDERAB LES Performing Organization Address [facility] de Phone Number [address] [address] * (ABNORMAL) Arterial blood gas PLUS (05/06/2019 5:19 AM EST) FIO2 UNSPEC. FIO2/L min [facility] PH 7.39 7.35 - 7.45 [facility] PCO2 35 35 - 42 mm[Hg] [facility] PO2 192(H) 80 - 100 mm[Hg] [facility] Base Excess, unspecified NEG 0.0 - 3.0 mmol/L [facility] Comment:3.7NEG HCO3, unspecified 21(L) 24 - 30 mmol/L [facility] SODIUM 138 135 - 145 mmol/L [facility] POTASSIUM 4.1 3.5 - 5.0 mmol/L [facility] IONIZED CALCIUM 0.87(L) 1.14 - 1.30 mmol/L [facility] Glucose, whole bld 178(H) 70 - 110 mg/dL [facility] HGB (BG) 10.4(L) 12.0 - 16.0 g/dl [facility] O2 Sat (SO2, arterial) 98.7 94.0 - 99.0 % [facility] Blood 05/06/2019 5:19 AM EST 05/06/2019 5:26 AM EST Jabari Guerrero MD LAB BLOOD ORDERAB LES Performing Organization Address City/[facility] Co de Phone Number [address] [address] * Transfuse RBC (05/06/2019 4:45 AM EST) Marce Cole MD NURSING TREAT MENT ORDERABLES - BLOOD ADMIN Performing Organization Address City/[facility] Co de Phone Number [id number] * Transfuse RBC (05/06/2019 4:45 AM EST) Marce Cole MD NURSING TREAT MENT ORDERABLES - BLOOD ADMIN * (ABNORMAL) Basic metabolic panel (05/06/2019 4:33 AM EST) SODIUM 142 135 - 145 mmol/L [facility] POTASSIUM 4.6 3.4 - 5.0 mmol/L [facility] CHLORIDE 113(H) 98 - 108 mmol/L [facility] CO2 19(L) 23 - 32 mmol/L [facility] BUN 10 8 - 25 mg/dL [facility] CREATININE 0.54(L) 0.60 - 1.50 mg/dL [facility] GLUCOSE 229(H) 70 - 110 mg/dL [facility] CALCIUM 6.9(L) 8.5 - 10.5 mg/dL [facility] EGFR >120 >59 mL/min/1. 73m2 [facility] Comment:If patient is black, multiply result by 1.159. Estimated glomerular filtration rate calculated using the CKD-EPI equation. ANION GAP 10 3 - 17 mmol/L [facility] Blood 05/06/2019 4:33 AM EST 05/06/2019 4:39 AM EST Marce Cole MD LAB BLOOD ORD ERAVIJI Performing Organization Address [facility]/ZIP Co de Phone Number [address] [address] * (ABNORMAL) Fibrinogen (05/06/2019 4:33 AM EST) FIBRINOGEN 118(L) 150 - 400 mg/dL [facility] Blood 05/06/2019 4:33 AM EST 05/06/2019 4:39 AM EST Marce Cole MD LAB BLOOD ORD ERABLES [address] [address] * (ABNORMAL) PTT (05/06/2019 4:33 AM EST) APTT 40.2(H) 22.0 - 36.0 sec [facility] Comment: Due to new reagent, the standard PTT heparin therapeutic range has changed to 70-100 seconds (instead of 60-80 seconds). Check MAR for the target range that is ordered for your patient. Blood 05/06/2019 4:33 AM EST 05/06/2019 4:39 AM EST Marce Cole MD LAB BLOOD ORD ERABLES [address] [address] * (ABNORMAL) PT-INR (05/06/2019 4:33 AM EST) PT 23.8(H) 11.5 - 14.5 sec [facility] INR 2.1(H) 0.9 - 1.1 [facility] Blood 05/06/2019 4:33 AM EST 05/06/2019 4:39 AM EST Marce Cole MD LAB BLOOD ORD ERABLES [address] [address] * (ABNORMAL) CBC (05/06/2019 4:33 AM EST) WBC 7.70 4.5 - 11.0 K/uL [facility] RBC 3.27(L) 4.00 - 5.20 M/uL [facility] HGB 10.1(L) 12.0 - 16.0 g/dL [facility] HCT 30.0(L) 36.0 - 46.0 % [facility] PLT 62(L) 150 - 400 K/uL [facility] [facility] MCV 91.7 80.0 - 100.0 fL [facility] MCH 30.9 26.0 - 34.0 pg [facility] MCHC 33.7 31.0 - 37.0 g/dL [facility] RDW 13.5 11.5 - 14.5 % [facility] MPV 10.3 8.4 - 12.0 fl [facility] NRBC 0.00 0 - 0.20 /100 WBCs [facility] ABSOLUTE NRBC 0.00 0 - 0.01 K/uL [facility] Blood 05/06/2019 4:33 AM EST 05/06/2019 4:40 AM EST Marce Cole MD LAB BLOOD ORD ERABLES Performing Organization Address [facility] de Phone Number [address] [address] * (ABNORMAL) Lactate (blood gas) (05/06/2019 4:33 AM EST) Lactate, blood 3.7(H) 0.5 - 2.0 mmol/L [facility] Blood 05/06/2019 4:33 AM EST 05/06/2019 4:40 AM EST Marce Cole MD LAB BLOOD ORD ERABLES Performing Organization Address [facility] de Phone Number [address] [address] * (ABNORMAL) Arterial blood gas PLUS (05/06/2019 4:33 AM EST) FIO2 UNSPEC. FIO2/L min [facility] PH 7.23(L) 7.35 - 7.45 [facility] PCO2 47(H) 35 - 42 mm[Hg] [facility] PO2 515(H) 80 - 100 mm[Hg] [facility] Base Excess, unspecified NEG 0.0 - 3.0 mmol/L [facility] Comment:7.9NEG HCO3, unspecified 19(L) 24 - 30 mmol/L [facility] SODIUM 136 135 - 145 mmol/L [facility] POTASSIUM 4.2 3.5 - 5.0 mmol/L [facility] IONIZED CALCIUM 0.98(L) 1.14 - 1.30 mmol/L [facility] Glucose, whole bld 202(H) 70 - 110 mg/dL [facility] HGB (BG) 10.8(L) 12.0 - 16.0 g/dl [facility] Comment:RESULT VERIFIED O2 Sat (SO2, arterial) 99.2(H) 94.0 - 99.0 % [facility] Blood 05/06/2019 4:33 AM EST 05/06/2019 4:40 AM EST Marce Cole MD LAB BLOOD ORD ERABLES [address] [address] * (ABNORMAL) Lactate (05/06/2019 3:14 AM EST) LACTIC ACID (MMOL/L) 2.8(H) 0.5 - 2.0 mmol/L [facility] Blood 05/06/2019 3:14 AM EST 05/06/2019 3:22 AM EST Marce Cole MD LAB BLOOD ORD ERABLES Performing Organization Address City/[facility] Co de Phone Number [address] [address] * (ABNORMAL) CBC (05/06/2019 3:14 AM EST) WBC 6.85 4.5 - 11.0 K/uL [facility] RBC 1.98(L) 4.00 - 5.20 M/uL [facility] HGB 6.2(L) 12.0 - 16.0 g/dL [facility] HCT 18.6(LL) 36.0 - 46.0 % [facility] PLT 119(L) 150 - 400 K/uL [facility] MCV 93.9 80.0 - 100.0 fL [facility] MCH 31.3 26.0 - 34.0 pg [facility] MCHC 33.3 31.0 - 37.0 g/dL [facility] RDW 12.7 11.5 - 14.5 % [facility] MPV 10.0 8.4 - 12.0 fl [facility] NRBC 0.00 0 - 0.20 /100 WBCs [facility] ABSOLUTE NRBC 0.00 0 - 0.01 K/uL [facility] Blood 05/06/2019 3:14 AM EST 05/06/2019 3:22 AM EST Marce Cole MD LAB BLOOD ORD ERABLES Performing Organization Address City/[facility] Co de Phone Number [address] [address] * (ABNORMAL) Lactate (05/06/2019 1:25 AM EST) LACTIC ACID (MMOL/L) 5.9(H) 0.5 - 2.0 mmol/L [facility] Blood 05/06/2019 1:25 AM EST 05/06/2019 1:47 AM EST Marce Cole MD LAB BLOOD ORD ERABLES Performing Organization Address [facility] Co de Phone Number [address] [address] * CBC (05/06/2019 1:25 AM EST) WBC Refused 4.5 - 11.0 K/uL [facility] Comment:Clotted Specimen RBC Refused 4.00 - 5.20 M/uL [facility] Comment:Clotted Specimen HGB Refused 12.0 - 16.0 g/dL [facility] Comment:Clotted Specimen HCT Refused 36.0 - 46.0 % [facility] Comment:Clotted Specimen PLT Refused 150 - 400 K/uL [facility] Comment:Clotted Specimen MCV Refused 80.0 - 100.0 fL [facility] Comment:Clotted Specimen MCH Refused 26.0 - 34.0 pg [facility] Comment:Clotted Specimen MCHC Refused 31.0 - 37.0 g/dL [facility] Comment:Clotted Specimen RDW Refused 11.5 - 14.5 % [facility] Comment:Clotted Specimen MPV Refused 8.4 - 12.0 fl [facility] Comment:Clotted Specimen NRBC Refused 0 - 0.20 /100 WBCs [facility] Comment:Clotted Specimen ABSOLUTE NRBC Refused 0 - 0.01 K/uL [facility] Comment:Clotted Specimen Blood 05/06/2019 1:25 AM EST 05/06/2019 1:42 AM EST Marce Cole MD LAB BLOOD ORD ERABLES Performing Organization Address [facility] Co de Phone Number [address] [address] * MRSA nasal screen (05/06/2019 1:25 AM EST) Special Requests No Special Requests 05/06/2019 1:25 AM EST [facility] MRSA Nasal Culture NEGATIVE FOR MRSA 05/07/2019 10:13 AM EST [facility] Other (Nasal) 05/06/2019 1:2 5 AM EST 05/06/2019 3:13 AM EST Marce Cole MD MICROBIOLOGY - GENERAL ORDERABLES Performing Organization Address [facility] Co de Phone Number [address] [address] * Vancomycin resistant Enterococci (VRE) rectal screen (05/06/2019 1:25 AM EST) Special Requests No Special Requests 05/06/2019 1:25 AM EST [facility] VRE Rectal Culture NEGATIVE FOR VRE 05/07/2019 8:06 AM EST [facility] Other (Rectal) 05/06/2019 1: 25 AM EST 05/06/2019 3:13 AM EST Marce Cole MD MICROBIOLOGY - GENERAL ORDERABLES Performing Organization Address [facility] Co de Phone Number [address] [address] * Transfuse RBC (05/06/2019 12:24 AM EST) Sal Shaw MD, MBA NURSING TREATMENT OR DERABLES - BLOOD ADMIN Performing Organization Address [facility] Co de Phone Number [id number] * Transfuse RBC (05/06/2019 12:24 AM EST) Sal Shaw MD, MBA NURSING TREATMENT OR DERABLES - BLOOD ADMIN * Lactate (05/06/2019 12:15 AM EST) LACTIC ACID (MMOL/L) 1.5 0.5 - 2.0 mmol/L [facility] Blood 05/06/2019 12:1 5 AM EST 05/06/2019 12:21 AM EST Marce Cole MD LAB BLOOD ORD ERABLES Performing Organization Address City/[facility] Co de Phone Number [address] [address] * (ABNORMAL) VENOUS BLOOD GAS PLUS (05/06/2019 12:11 AM EST) FIO2 0.98 FIO2/L min [facility] PH 7.32 7.30 - 7.40 [facility] PCO2 43 38 - 50 mm[Hg] [facility] PO2 73(H) 35 - 50 mm[Hg] [facility] Base Excess, unspecified NEG 0.0 - 3.0 mmol/L [facility] Comment:4.2NEG HCO3, unspecified 22(L) 24 - 30 mmol/L [facility] SODIUM 137 135 - 145 mmol/L [facility] POTASSIUM 3.9 3.5 - 5.0 mmol/L [facility] IONIZED CALCIUM 1.20 1.14 - 1.30 mmol/L [facility] Glucose, whole bld 144(H) 70 - 110 mg/dL [facility] HGB (BG) 8.8(L) 12.0 - 16.0 g/dl [facility] Comment:RESULT VERIFIED SO2-VENOUS (SO2, venous) 94.2(H) 60.0 - 85.0 % [facility] Blood 05/06/2019 12:1 1 AM EST 05/06/2019 12:17 AM EST Marce Cole MD LAB BLOOD ORD ERABLES Performing Organization Address City/[facility]/ZIP Co de Phone Number [address] [address] * (ABNORMAL) PT-INR (05/06/2019 12:11 AM EST) PT 18.1(H) 11.5 - 14.5 sec [facility] INR 1.5(H) 0.9 - 1.1 [facility] Blood 05/06/2019 12:1 1 AM EST 05/06/2019 12:17 AM EST Marce Cole MD LAB BLOOD ORD ERABLES [address] [address] * PTT (05/06/2019 12:11 AM EST) APTT 27.7 22.0 - 36.0 sec [facility] Comment: Due to new reagent, the standard PTT heparin therapeutic range has changed to 70-100 seconds (instead of 60-80 seconds). Check MAR for the target range that is ordered for your patient. Blood 05/06/2019 12:1 1 AM EST 05/06/2019 12:17 AM EST Marce Cole MD LAB BLOOD ORD ERABLES Performing Organization Address [facility] de Phone Number [address] [address] * (ABNORMAL) Magnesium (05/06/2019 12:01 AM EST) MAGNESIUM 2.5(H) 1.7 - 2.4 mg/dL [facility] 05/06/2019 12:0 1 AM EST 05/06/2019 12:19 AM EST Marce Cole MD LAB BLOOD ORD ERABLES Performing Organization Address [facility] de Phone Number [address] [address] * (ABNORMAL) Basic metabolic panel (05/06/2019 12:01 AM EST) SODIUM 142 135 - 145 mmol/L [facility] POTASSIUM 4.2 3.4 - 5.0 mmol/L [facility] CHLORIDE 108 98 - 108 mmol/L [facility] CO2 21(L) 23 - 32 mmol/L [facility] BUN 10 8 - 25 mg/dL [facility] CREATININE 0.68 0.60 - 1.50 mg/dL [facility] GLUCOSE 157(H) 70 - 110 mg/dL [facility] CALCIUM 8.8 8.5 - 10.5 mg/dL [facility] EGFR 119 >59 mL/min/1. 73m2 [facility] Comment:If patient is black, multiply result by 1.159. Estimated glomerular filtration rate calculated using the CKD-EPI equation. ANION GAP 13 3 - 17 mmol/L [facility] 05/06/2019 12:0 1 AM EST 05/06/2019 12:19 AM EST Marce Cole MD LAB BLOOD ORD ERABLES [facility] [address] [place] [address] * (ABNORMAL) CBC (05/06/2019 12:01 AM EST) WBC 6.61 4.5 - 11.0 K/uL [facility] RBC 2.70(L) 4.00 - 5.20 M/uL [facility] HGB 8.6(L) 12.0 - 16.0 g/dL [facility] HCT 25.4(L) 36.0 - 46.0 % [facility] PLT 149(L) 150 - 400 K/uL [facility] MCV 94.1 80.0 - 100.0 fL [facility] MCH 31.9 26.0 - 34.0 pg [facility] MCHC 33.9 31.0 - 37.0 g/dL [facility] RDW 12.5 11.5 - 14.5 % [facility] MPV 9.8 8.4 - 12.0 fl [facility] NRBC 0.00 0 - 0.20 /100 WBCs [facility] ABSOLUTE NRBC 0.00 0 - 0.01 K/uL [facility] 05/06/2019 12:0 1 AM EST 05/06/2019 12:18 AM EST Marce Cole MD LAB BLOOD ORD ERABLES [address] [address] * Transfuse RBC (05/05/2019 10:20 PM EST) Sal Shaw MD, MBA NURSING TREATMENT OR DERABLES - BLOOD ADMIN [id number] * Transfuse RBC (05/05/2019 10:20 PM EST) Sal Shaw MD, MBA NURSING TREATMENT OR DERABLES - BLOOD ADMIN * Prepare RBC (05/05/2019 9:51 PM EST) Product Code [id number] 05/07/2019 4:35 AM EST [facility] Unit Number [id number] 05/07/19 20 4:35 AM EST [facility] Crossmatch Interpretation Compatible 05/05/2019 10:13 PM EST [facility] Product Status Issued, Final 020 4:35 AM EST [facility] ABO/Rh of Unit APOS 05/07/2019 4:35 AM EST [facility] Expiration Date/Time [id number] 05/07/2019 4:35 AM EST [facility] Unit Barcode 6200 05/07/2019 4:35 AM EST [facility] 05/05/2019 9:51 PM EST 05/05/2019 10:06 AM EST Marce Cole MD BLOOD BANK SC ODUCT ORDERABLES Performing Organization Address City/[facility]/ZIP Co de Phone Number [address] [address] * (ABNORMAL) Magnesium (05/05/2019 8:30 PM EST) MAGNESIUM 1.5(L) 1.7 - 2.4 mg/dL [facility] Blood 05/05/2019 8:30 PM EST 05/05/2019 8:34 PM EST Marylou Markham CHILDCARE ADMINISTRATOR LAB BLOOD ORDERABLES [address] [address] * (ABNORMAL) Basic metabolic panel (05/05/2019 8:30 PM EST) SODIUM 144 135 - 145 mmol/L [facility] POTASSIUM 4.4 3.4 - 5.0 mmol/L [facility] CHLORIDE 106 98 - 108 mmol/L [facility] CO2 22(L) 23 - 32 mmol/L [facility] BUN 8 8 - 25 mg/dL [facility] CREATININE 0.63 0.60 - 1.50 mg/dL [facility] GLUCOSE 123(H) 70 - 110 mg/dL [facility] CALCIUM 8.2(L) 8.5 - 10.5 mg/dL [facility] EGFR >120 >59 mL/min/1. 73m2 [facility] Comment:If patient is black, multiply result by 1.159. Estimated glomerular filtration rate calculated using the CKD-EPI equation. ANION GAP 16 3 - 17 mmol/L [facility] Blood 05/05/2019 8:30 PM EST 05/05/2019 8:34 PM EST Marylou Markham LETY LAB BLOOD ORDERABLES Performing Organization Address [facility] Co de Phone Number [address] [address] * (ABNORMAL) VENOUS BLOOD GAS PLUS (05/05/2019 8:30 PM EST) FIO2 UNSPEC. FIO2/L min [facility] PH 7.41(H) 7.30 - 7.40 [facility] PCO2 37(L) 38 - 50 mm[Hg] [facility] PO2 58(H) 35 - 50 mm[Hg] [facility] Base Excess, unspecified NEG 0.0 - 3.0 mmol/L [facility] Comment:1.2NEG HCO3, unspecified 23(L) 24 - 30 mmol/L [facility] SODIUM 137 135 - 145 mmol/L [facility] POTASSIUM 4.1 3.5 - 5.0 mmol/L [facility] IONIZED CALCIUM 1.03(L) 1.14 - 1.30 mmol/L [facility] Glucose, whole bld 118(H) 70 - 110 mg/dL [facility] HGB (BG) 6.0(LL) 12.0 - 16.0 g/dl [facility] Comment:RESULT VERIFIED SO2-VENOUS (SO2, venous) 91.8(H) 60.0 - 85.0 % [facility] Blood 05/05/2019 8:30 PM EST 05/05/2019 8:33 PM EST Sal Shaw MD, MBA LAB BLOOD ORDERABLES Performing Organization Address City/[facility]/ZIP Co de Phone Number [address] [address] * (ABNORMAL) CBC (05/05/2019 8:30 PM EST) WBC 7.15 4.5 - 11.0 K/uL [facility] RBC 1.90(L) 4.00 - 5.20 M/uL [facility] HGB 6.0(L) 12.0 - 16.0 g/dL [facility] HCT 17.6(LL) 36.0 - 46.0 % [facility] PLT 183 150 - 400 K/uL [facility] MCV 92.6 80.0 - 100.0 fL [facility] MCH 31.6 26.0 - 34.0 pg [facility] MCHC 34.1 31.0 - 37.0 g/dL [facility] RDW 12.3 11.5 - 14.5 % [facility] MPV 9.5 8.4 - 12.0 fl [facility] NRBC 0.00 0 - 0.20 /100 WBCs [facility] ABSOLUTE NRBC 0.00 0 - 0.01 K/uL [facility] Blood 05/05/2019 8:30 PM EST 05/05/2019 8:34 PM EST Sal Shaw MD, BERNARD LAB BLOOD ORDERABLES Performing Organization Address City/[facility] Co de Phone Number [address] [address] * (ABNORMAL) Magnesium (05/05/2019 7:57 PM EST) MAGNESIUM 1.3(L) 1.7 - 2.4 mg/dL [facility] Blood 05/05/2019 7:57 PM EST 05/05/2019 8:05 PM EST Marce Cole MD LAB BLOOD ORD ERABLES Performing Organization Address [facility] Co de Phone Number [address] [address] * (ABNORMAL) CBC (05/05/2019 7:57 PM EST) WBC 5.84 4.5 - 11.0 K/uL [facility] RBC 1.72(L) 4.00 - 5.20 M/uL [facility] HGB 5.4(L) 12.0 - 16.0 g/dL [facility] HCT 15.9(LL) 36.0 - 46.0 % [facility] PLT 130(L) 150 - 400 K/uL [facility] MCV 92.4 80.0 - 100.0 fL [facility] MCH 31.4 26.0 - 34.0 pg [facility] MCHC 34.0 31.0 - 37.0 g/dL [facility] RDW 12.6 11.5 - 14.5 % [facility] MPV 11.0 8.4 - 12.0 fl [facility] NRBC 0.00 0 - 0.20 /100 WBCs [facility] ABSOLUTE NRBC 0.00 0 - 0.01 K/uL [facility] Blood 05/05/2019 7:57 PM EST 05/05/2019 8:04 PM EST Marce Cole MD LAB BLOOD ORD ERABLES Performing Organization Address City/[facility]/ZIP Co de Phone Number [address] [address] * (ABNORMAL) Basic metabolic panel (05/05/2019 7:57 PM EST) SODIUM 142 135 - 145 mmol/L [facility] POTASSIUM 4.9 3.4 - 5.0 mmol/L [facility] Comment:Hemolysis present, r esult falsely increased. CHLORIDE 107 98 - 108 mmol/L [facility] CO2 21(L) 23 - 32 mmol/L [facility] BUN 8 8 - 25 mg/dL [facility] CREATININE 0.63 0.60 - 1.50 mg/dL [facility] GLUCOSE 105 70 - 110 mg/dL [facility] CALCIUM 7.5(L) 8.5 - 10.5 mg/dL [facility] EGFR >120 >59 mL/min/1. 73m2 [facility] Comment:If patient is black, multiply result by 1.159. Estimated glomerular filtration rate calculated using the CKD-EPI equation. ANION GAP 14 3 - 17 mmol/L [facility] Blood 05/05/2019 7:57 PM EST 05/05/2019 8:05 PM EST Marce Cole MD LAB BLOOD ORD ERABLES [address] [address] * (ABNORMAL) Lactate (05/05/2019 5:46 PM EST) LACTIC ACID (MMOL/L) 2.3(H) 0.5 - 2.0 mmol/L [facility] Blood 05/05/2019 5:46 PM EST 05/05/2019 5:55 PM EST Marylou Markham CNP LAB BLOOD ORDERABLES Performing Organization Address [facility] Co de Phone Number [address] [address] * PTT (05/05/2019 5:46 PM EST) APTT 22.9 22.0 - 36.0 sec [facility] Comment: Due to new reagent, the standard PTT heparin therapeutic range has changed to 70-100 seconds (instead of 60-80 seconds). Check MAR for the target range that is ordered for your patient. Blood 05/05/2019 5:46 PM EST 05/05/2019 5:55 PM EST Marylou Markham CNP LAB BLOOD ORDERABLES Performing Organization Address [facility] Co de Phone Number [address] [address] * (ABNORMAL) PT-INR (05/05/2019 5:46 PM EST) PT 16.3(H) 11.5 - 14.5 sec [facility] INR 1.3(H) 0.9 - 1.1 [facility] Blood 05/05/2019 5:46 PM EST 05/05/2019 5:55 PM EST Marylou Markham CNP LAB BLOOD ORDERABLES Performing Organization Address [facility] Co de Phone Number [address] [address] * (ABNORMAL) CBC (05/05/2019 5:46 PM EST) WBC 7.25 4.5 - 11.0 K/uL [facility] RBC 2.54(L) 4.00 - 5.20 M/uL [facility] HGB 8.0(L) 12.0 - 16.0 g/dL [facility] HCT 24.3(L) 36.0 - 46.0 % [facility] PLT 200 150 - 400 K/uL [facility] MCV 95.7 80.0 - 100.0 fL [facility] MCH 31.5 26.0 - 34.0 pg [facility] MCHC 32.9 31.0 - 37.0 g/dL [facility] RDW 12.2 11.5 - 14.5 % [facility] MPV 9.8 8.4 - 12.0 fl [facility] NRBC 0.00 0 - 0.20 /100 WBCs [facility] ABSOLUTE NRBC 0.00 0 - 0.01 K/uL [facility] Blood 05/05/2019 5:46 PM EST 05/05/2019 5:54 PM EST Marylou Markham CHILDCARE ADMINISTRATOR LAB BLOOD ORDERABLES Performing Organization Address [facility] Co de Phone Number [address] [address] * (ABNORMAL) Magnesium (05/05/2019 5:46 PM EST) MAGNESIUM 1.5(L) 1.7 - 2.4 mg/dL [facility] Blood 05/05/2019 5:46 PM EST 05/05/2019 5:54 PM EST Marylou Markham CHILDCARE ADMINISTRATOR LAB BLOOD ORDERABLES Performing Organization Address [facility] Co de Phone Number [address] [address] * (ABNORMAL) Basic metabolic panel (05/05/2019 5:46 PM EST) SODIUM 144 135 - 145 mmol/L [facility] POTASSIUM 4.0 3.4 - 5.0 mmol/L [facility] CHLORIDE 107 98 - 108 mmol/L [facility] CO2 23 23 - 32 mmol/L [facility] BUN 8 8 - 25 mg/dL [facility] CREATININE 0.72 0.60 - 1.50 mg/dL [facility] GLUCOSE 182(H) 70 - 110 mg/dL [facility] CALCIUM 8.1(L) 8.5 - 10.5 mg/dL [facility] EGFR 114 >59 mL/min/1. 73m2 [facility] Comment:If patient is black, multiply result by 1.159. Estimated glomerular filtration rate calculated using the CKD-EPI equation. ANION GAP 14 3 - 17 mmol/L [facility] Blood 05/05/2019 5:46 PM EST 05/05/2019 5:54 PM EST Marylou Markham LETY LAB BLOOD ORDERABLES Performing Organization Address [facility] Co de Phone Number [address] [address] * PTT (05/05/2019 3:51 PM EST) APTT 28.9 22.0 - 36.0 sec [facility] Comment: Due to new reagent, the standard PTT heparin therapeutic range has changed to 70-100 seconds (instead of 60-80 seconds). Check MAR for the target range that is ordered for your patient. Blood 05/05/2019 3:51 PM EST 05/05/2019 4:31 PM EST Marce Cole MD LAB BLOOD ORD ERABLES Performing Organization Address [facility] Co de Phone Number [address] [address] * (ABNORMAL) PT-INR (05/05/2019 3:51 PM EST) PT 18.5(H) 11.5 - 14.5 sec [facility] INR 1.5(H) 0.9 - 1.1 [facility] Blood 05/05/2019 3:51 PM EST 05/05/2019 4:31 PM EST Marce Cole MD LAB BLOOD ORD ERABLES Performing Organization Address City/[facility] Co de Phone Number [address] [address] * (ABNORMAL) Magnesium (05/05/2019 3:51 PM EST) MAGNESIUM 1.0(LL) 1.7 - 2.4 mg/dL [facility] Blood 05/05/2019 3:51 PM EST 05/05/2019 4:32 PM EST Marce Cole MD LAB BLOOD ORD ERABLES Performing Organization Address City/[facility] Co de Phone Number [address] [address] * (ABNORMAL) Basic metabolic panel (05/05/2019 3:51 PM EST) SODIUM 145 135 - 145 mmol/L [facility] POTASSIUM 3.4 3.4 - 5.0 mmol/L [facility] CHLORIDE 113(H) 98 - 108 mmol/L [facility] CO2 17(L) 23 - 32 mmol/L [facility] BUN 6(L) 8 - 25 mg/dL [facility] CREATININE 0.43(L) 0.60 - 1.50 mg/dL [facility] GLUCOSE 119(H) 70 - 110 mg/dL [facility] CALCIUM 6.4(LL) 8.5 - 10.5 mg/dL [facility] EGFR >120 >59 mL/min/1. 73m2 [facility] Comment:If patient is black, multiply result by 1.159. Estimated glomerular filtration rate calculated using the CKD-EPI equation. ANION GAP 15 3 - 17 mmol/L [facility] Blood 05/05/2019 3:51 PM EST 05/05/2019 4:32 PM EST [place] Trey Cole MD LAB BLOOD ORD ERABLES [address] [address] * (ABNORMAL) CBC and differential (05/05/2019 3:51 PM EST) WBC 5.46 4.5 - 11.0 K/uL [facility] RBC 2.30(L) 4.00 - 5.20 M/uL [facility] HGB 7.2(L) 12.0 - 16.0 g/dL [facility] HCT 21.7(L) 36.0 - 46.0 % [place] [facility] PLT 139(L) 150 - 400 K/uL [facility] MCV 94.3 80.0 - 100.0 fL [facility] MCH 31.3 26.0 - 34.0 pg [facility] MCHC 33.2 31.0 - 37.0 g/dL [facility] RDW 12.4 11.5 - 14.5 % [facility] MPV 9.1 8.4 - 12.0 fl [facility] NRBC 0.00 0 - 0.20 /100 WBCs [facility] ABSOLUTE NRBC 0.00 0 - 0.01 K/uL [facility] DIFF METHOD Auto [facility] NEUTS 80.7(H) 40 - 70 % [facility] LYMPHS 10.3(L) 22 - 44 % [facility] MONOS 8.6 4 - 11 % [facility] EOS 0.0 0 - 8 % [facility] BASOS 0.0 0 - 3 % [facility] % IMMATURE GRANS 0.4 0.0 - 0.9 % [facility] ABSOLUTE NEUTS 4.41 1.8 - 7.7 K/uL [facility] ABSOLUTE LYMPHS 0.56(L) 1.0 - 4.8 K/uL [facility] ABSOLUTE MONOS 0.47 0.2 - 1.2 K/uL [facility] ABSOLUTE EOS 0.00 0.0 - 0.9 K/uL [facility] ABSOLUTE BASOS 0.00 0.0 - 0.3 K/uL [facility] ABS IMMATURE GRANS 0.02 0.00 - 0.10 K/uL [facility] Blood 05/05/2019 3:51 PM EST 05/05/2019 4:34 PM EST Marce Cole MD LAB BLOOD ORD ERABLES Performing Organization Address City/[facility] Co de Phone Number [address] [address] * (ABNORMAL) Lactate (blood gas) (05/05/2019 3:12 PM EST) Lactate, blood 3.1(H) 0.5 - 2.0 mmol/L [facility] Blood 05/05/2019 3:12 PM EST 05/05/2019 3:23 PM EST Magen Garza MD LAB BLOOD ORDERABLES Performing Organization Address City/[facility] Co de Phone Number [address] [address] * (ABNORMAL) VENOUS BLOOD GAS PLUS (05/05/2019 3:12 PM EST) FIO2 UNSPEC. FIO2/L min [facility] PH 7.27(L) 7.30 - 7.40 [facility] PCO2 48 38 - 50 mm[Hg] [facility] PO2 45 35 - 50 mm[Hg] [facility] Base Excess, unspecified NEG 0.0 - 3.0 mmol/L [facility] Comment:5.3NEG HCO3, unspecified 21(L) 24 - 30 mmol/L [facility] SODIUM 140 135 - 145 mmol/L [facility] POTASSIUM 3.1(L) 3.5 - 5.0 mmol/L [facility] IONIZED CALCIUM 0.99(L) 1.14 - 1.30 mmol/L [facility] Glucose, whole bld 132(H) 70 - 110 mg/dL [facility] HGB (BG) 8.7(L) 12.0 - 16.0 g/dl [facility] SO2-VENOUS (SO2, venous) 70.8 60.0 - 85.0 % [facility] Blood 05/05/2019 3:12 PM EST 05/05/2019 3:23 PM EST Magen Garza MD LAB BLOOD ORDERABLES Performing Organization Address City/[facility] Co de Phone Number [address] [address] * (ABNORMAL) Lactate (blood gas) (05/05/2019 2:09 PM EST) Pathologist [facility] Lactate, blood 6.1(H) 0.5 - 2.0 mmol/L [facility] Comment:RESULT VERIFIED 05/05/2019 2:09 PM EST 05/05/2019 2:37 PM EST Vane Mejia CRNA LAB BLOOD OR DERABLES Performing Organization Address City/[facility] Co de Phone Number [address] [address] * (ABNORMAL) VENOUS BLOOD GAS PLUS (05/05/2019 2:09 PM EST) FIO2 UNSPEC. FIO2/L min [facility] PH 7.27(L) 7.30 - 7.40 [facility] PCO2 36(L) 38 - 50 mm[Hg] [facility] PO2 39 35 - 50 mm[Hg] [facility] Base Excess, unspecified NEG 0.0 - 3.0 mmol/L [facility] Comment:9.8NEG HCO3, unspecified 16(L) 24 - 30 mmol/L [facility] SODIUM 137 135 - 145 mmol/L [facility] POTASSIUM 3.8 3.5 - 5.0 mmol/L [facility] IONIZED CALCIUM 0.93(L) 1.14 - 1.30 mmol/L [facility] Glucose, whole bld 94 70 - 110 mg/dL [facility] HGB (BG) 9.4(L) 12.0 - 16.0 g/dl [facility] SO2-VENOUS (SO2, venous) 61.2 60.0 - 85.0 % [facility] Blood 05/05/2019 2:09 PM EST 05/05/2019 2:37 PM EST Magen Garza MD LAB BLOOD ORDERABLES Performing Organization Address [facility] Co de Phone Number [address] [address] * (ABNORMAL) Basic metabolic panel (05/05/2019 10:05 AM EST) SODIUM 142 135 - 145 mmol/L [facility] POTASSIUM 4.3 3.4 - 5.0 mmol/L [facility] Comment:Hemolysis present, r esult falsely increased. CHLORIDE 103 98 - 108 mmol/L [facility] CO2 21(L) 23 - 32 mmol/L [facility] BUN 7(L) 8 - 25 mg/dL [facility] CREATININE 0.72 0.60 - 1.50 mg/dL [facility] GLUCOSE 95 70 - 110 mg/dL [facility] CALCIUM 9.5 8.5 - 10.5 mg/dL [facility] EGFR 114 >59 mL/min/1.7 3m2 [facility] Comment:If patient is black, multiply result by 1.159. Estimated glomerular filtration rate calculated using the CKD-EPI equation. ANION GAP 18(H) 3 - 17 mmol/L [facility] Blood 05/05/2019 10:0 5 AM EST 05/05/2019 10:15 AM EST Marce Cole MD LAB BLOOD ORD ERABLES Performing Organization Address City/[facility]/ZIP Co de Phone Number [address] [address] * PTT (05/05/2019 10:05 AM EST) APTT 26.6 22.0 - 36.0 sec [facility] Comment: Due to new reagent, the standard PTT heparin therapeutic range has changed to 70-100 seconds (instead of 60-80 seconds). Check MAR for the target range that is ordered for your patient. Blood 05/05/2019 10:0 5 AM EST 05/05/2019 10:15 AM EST Marce Cole MD LAB BLOOD ORD ERABLES Performing Organization Address City/[facility]/ZIP Co de Phone Number [address] [address] * PT-INR (05/05/2019 10:05 AM EST) PT 13.3 11.5 - 14.5 sec [facility] INR 1.0 0.9 - 1.1 [facility] Blood 05/05/2019 10:0 5 AM EST 05/05/2019 10:15 AM EST Marce Cole MD LAB BLOOD ORD ERABLES [address] [address] * CBC (05/05/2019 10:05 AM EST) WBC 8.83 4.5 - 11.0 K/uL [facility] RBC 4.13 4.00 - 5.20 M/uL [facility] HGB 12.8 12.0 - 16.0 g/dL [facility] HCT 37.5 36.0 - 46.0 % [facility] PLT 246 150 - 400 K/uL [facility] MCV 90.8 80.0 - 100.0 fL [facility] MCH 31.0 26.0 - 34.0 pg [facility] MCHC 34.1 31.0 - 37.0 g/dL [facility] RDW 12.2 11.5 - 14.5 % [facility] MPV 9.9 8.4 - 12.0 fl [facility] NRBC 0.00 0 - 0.20 /100 WBCs [facility] ABSOLUTE NRBC 0.00 0 - 0.01 K/uL [facility] Blood 05/05/2019 10:0 5 AM EST 05/05/2019 10:16 AM EST Marce Cole MD LAB BLOOD ORD ERABLES Performing Organization Address City/[facility] Co de Phone Number [address] [address] * Type and Screen (ABO,Rh,Antibody Screen) (05/05/2019 8:52 AM EST) Expiration Date of Sample 05/08/2019 11:59 PM ABO A 05/05/2019 10:35 AM EST [facility] Rh Positive 05/05/2019 10:35 AM EST [facility] Resulting Agency [facility] Antibody Screen Negative 05/05/2019 10:54 AM EST [facility] Blood 05/05/2019 8:52 AM EST 05/05/2019 10:06 AM EST Marce Cole MD BLOOD BANK TE ST ORDERABLES Performing Organization Address [facility] Co de Phone Number [address] [address] * HCG, urine (05/05/2019 8:02 AM EST) URINE TEST Negative Negative [facility] Urine (Urine) 05/05/2019 8:0 2 AM EST 05/05/2019 8:27 AM EST Marce Cole MD URINE ORDERAB LES Performing Organization Address City/[facility]/ZIP Co de Phone Number [address] [address] * Anatomic Pathology (05/05/2019 12:00 AM EST) 05/05/2019 05/05/2019 4:0 2 PM EST Narrative SEE NARRATIVE - 05/12/2019 10:57 AM EST [address] [address] ? Surgical Pathology Report Patient Name: MARYLOU HERNANDEZ : 1990 (Age: 28) Sex: F [facility]: [facility] [place] [facility] Date of Operation: 05/05/2019 Date of Reported: [...] consistent with a reactive lymphoid infiltrate. A promotional representative slide of endomyometrium was reviewed by [...] reveal stellate lumen. Gross photographs are taken. ??Microbiology Analyst sections are submitted as follows: C1: Right paracervical tissue margin, promotional representative C2: Left paracervical tissue margin, promotional representative C3-C5: Cervix, 3:00 to 6:00 to include the surface defect in C4 C6-C9: Cervix, 6:00 to 9:00 C10-C 12: Cervix, 9:00 to 12:00 C13-C 15: Cervix, 12:00 to 3:00 C16: Anterior lower uterine segment, promotional representative C17: Posterior lower uterine segment, promotional representative C18-C19: Anterior endomyometrium, full-thickness in each [...] Immunohistochemical and in-situ hybridization tests performed at [facility] have been developed and their performance characteristics determined by the Immunohistochemistry Laboratories in the Department of Pathology at [facility]. They have not been cleared or approved by the U.S.Food and Drug Administration (FDA); the FDA has determined that such clearance or approval is not necessary. [facility] [place] PATHOLOGY ORD ERABLES SEE NARRATIVE documented in this encounter Visit Diagnoses Diagnosis Post-operative state- Primary Other postprocedural status Malignant neoplasm of endocervix documented in this [...] Given 05/09/2019 3:02 PM EST 40 mg gelatin sponge,absorb-porcine (GELFOAM COMPRESSED SIZE 100) 100 cm topical sponge As needed, Starting on Thu05/05/19 at 1457, Intra-op/procedure Given 05/05/2019 2:57 PM EST 1 each Surgical Site hydrocortisone 2.5 % cream Topical, 2 times [...] Given 05/09/2019 2:23 PM EST 80 mg documented in this encounter Active and Recently Administered Medications Times are shown in EST. Scheduled Medication Order 05/08/2019 05/09/2019 05/10/2019 acetaminophen (TYLENOL) tablet 975 mg 975 mg, Oral, Every 6 hours, First dose on Consuelo 05/05/19 at 1645 0435 (Not Given - Provider: Sejal Myrick RN - Reason: Patient/family refused)1515 (Given - Provider: Areli Alejandro, TAWANA)1603 (Not Given - Provider: Areli Alejandro RN - Reason: Contraindicated)2147 (Not Given - Provider: Amaris Packer, TAWANA - Reason: Patient/family refused) 0238 (Given - Provider: Amaris Packer RN)0915 (Given - Provider: Areli Alejandro RN)1423 (Given - Provider: Areli Alejandro RN)2058 (Given - Provider: Lou Goodrich RN) 0225 (Given - Provider: Amaris Packer, TAWANA)1004 (Given - Provider: Valeria Hunter, TAWANA)1445 (Due - Provider: Amaris Packer, TAWANA) buPROPion (WELLBUTRIN SR) SR 12 hr tablet [...] mEq (COMPLETED) 40 mEq, Oral, Once, On 05/09/19 at [...] RN)1999 (Given - Provider: Amaris Packer RN) 09 (Given - Provider: Areli Alejandro RN)2057 (Given - Provider: Lou Goodrich RN) 0838 (Given - Provider: Valeria Hunter, [...] rate + 3x demand dose]: 10 mL 0052 (New Bag - Provider: Sejal Myrick RN) PRN Medication Order 05/08/2019 05/09/2019 05/10/2019 bisacodyl (DULCOLAX) suppository 10 mg 10 mg, Rectal, Daily as needed, moderate constipation, Starting on Thu05/06/19 at 0933 diphenhydrAMINE (BENADRYL) capsule 25 mg 25 mg, Oral, Every 6 hours PRN, itching, Starting on Tu05/10/19 at 1015 1143 (Given - Provider: Vaelria Hunter, TAWANA) ibuprofen (ADVIL,MOTRIN) tablet 600 mg 600 mg, Oral, Every 6 hours PRN, mild pain or 1-3 (on a general 0-10 scale), Starting on 05/09/19 at 1429 1608 (Given - Provider: Lou Goodrich RN)2152 (Given - Provider: Lou Goodrich RN) 0601 (Given - Provider: Amaris Packer RN)1425 (Given - Provider: Valeria Hunter RN) naloxone [...] Packer RN) 0250 (Given - Provider: Amaris Packer, TAWANA)0753 (Given - Provider: Areli Alejandro RN)1247 (See Alternative - Provider: Sis Chin RN)1742 (See Alternative - Provider: Lou Goodrich, TAWANA) 0225 (See Alternative - Provider: Amaris Packer RN)1143 (See Alternative - Provider: Valeria Hunter RN) ondansetron (ZOFRAN-ODT) disintegrating tablet 4 mg(Linked Group 2) 4 mg, Oral, Every 6 hours PRN, nausea, vomiting, Starting on Consuelo 05/05/19 at 1548 1012 (See Alternative - Provider: Areli Alejandro RN)2125 (See Alternative - Provider: Amaris Packer RN) 0250 (See Alternative - Provider: Amaris Packer, TAWANA)0753 (See Alternative - Provider: Areli Alejandro RN)1247 [...] Amaris Packer RN)1024 (Given - Provider: Areli Alejandro, TAWANA)2058 (Given - Provider: Lou Goodrich, TAWANA) 0300 (Given - Provider: Amaris Packer RN)0830 (Given - Provider: Valeria Hunter, TAWANA) simethicone [...] PO. documented in this encounter Care Teams Note Taker Relationship Specialty Start Date End Date Jennifer Bridges NP [address] [place] [phone] [email or web address] PCP - General 12/31/18 Hayley Pandey MD [address] [phone] Historical LMR Provider 01/15/19 03/30/21 Chloé Sánchez CNM [address] [place] [address] Historical LMR Provider 01/15/19 03/30/21 Dayana Galindo MD [address] [place] [address] Historical LMR Provider 01/15/19 03/30/[address] [place] [address] [email or web address] Historical LMR Provider 01/15/19 03/30/21 Cain Morales MD 10 [facility] 401 [place] [address] Historical LMR Provider 01/15/19 2 Kate Leal MD 15 [facility] 102 [place] [address] [email or web address] Historical LMR Provider 01/15/19 03/30/21 Jennifer Bridges NP 60 [facility] 3 [place] [address] [email or web address] Historical LMR Provider 01/15/19 10/31/19 Tari Willams 15 [facility] 201 [place] [address] Historical LMR Provider 01/15/19 2 Kody Ayon MD 60 [facility] 300 [place] [address] Historical LMR Provider 01/15/19 Cynthia Allen CNM [address] [place] [address], [place] [address] [email or web address] Historical LMR Provider 01/15/19 03/30/21 Tari Urias DO 10 [facility] 200 [place] [address] Historical LMR Provider 01/15/19 10/31/19 Palak Culver CNM [address] [address] Historical LMR Provider 01/15/19 03/30/21 Damaso Carranza MD [address] [address] Historical LMR Provider 01/15/19 Ian Youssef MD [address] [place] [address] Historical LMR Provider 01/15/19 2 Jc Jacobs MD [address] [place] [id number] [email or web address] Historical LMR Provider 01/15/19 03/30/21 Eliz Saleem CNM [address], [place] [address] [email or web address] Historical LMR Provider 01/15/19 03/30/21 documented as of this encounter Additional Source Comments The information contained in this document represents components of the legal health record. It is not the complete legal health record.[facility]
--- OUTSIDE RECORDS SUMMARY | 2023-11-16 12:23 | XMS_ITS | Encounter Summary ---
Author Organization [facility] Address [phone] [facility] [place] [address] Care Team Providers Care Chemical Dependency Therapist Name Role Phone Jennifer Bridges NP Primary Care Provider Hayley Pandey MD Unavailable + [phone] Chloé Sánchez CNM Unavailable [phone] Dayana Galindo MD Unavailable Ruiz Lewis DO Unavailable Xiomara Cain Morales MD Unavailable Kate Leal MD Unavailable [phone] Jennifer Bridges NP Unavailable [phone] Tari Willams Unavailable [phone] Kody Ayon MD Unavailable [phone] Cynthia Allen CNM Unavailable [phone] Tari Urias DO Unavailable [phone] Palak Culver CNM Unavailable [phone] Damaso Carranza MD Unavailable Ian Youssef MD Unavailable [phone] Jc Jacobs MD Unavailable [phone] Eliz Saleem [facility] Unavailable [phone] Encounter Details Date Type Department Care Team (Late st Contact Info) Description 02/28/2019 Telephone [facility] [address] [place] [address] Jennifer Bridges, MONICA 60 [facility] [address] [place] [phone] [email or web address] Social History Tobacco Use Types Packs/Day Years Used Date Smoking Tobacco: Never Sex and Gender Information Value Date Recorded Sex Assigned at Female 01/11/2020 5:24 PM EDT Gender Identity Female 01/11/2020 5:24 PM EDT Sexual Orientation Straight 01/11/2020 5: 24 PM EDT documented as of this encounter Progress Notes * Jennifer Bridges APRN - 03/03/2019 11:27 AM EST Spoke to Mariam. I don't have any concerns about Marylou caring for her baby as she came in right away for help when her anxiety was worsening. However, she did no show her f/u on 01/11. Can you please call the patient and see how she is doing and if she would like to r/s f/u? Thanks. * Jennifer Bridges APRN - 03/01/2019 1:27 PM EST LMTCB. * Jabari Carballo - 02/28/2019 10:16 AM EST Fax request received from [facility] requesting LK contact office @ [phone] regarding patient. In LK inbox for review documented in this encounter Plan of Treatment Not on file documented as of this encounter Visit Diagnoses Not on filedocumented in this encounter Care Teams Chemical Dependency Therapist Relationship Specialty Start Date End Date Jennifer Bridges NP [address] [place] [address] 3 [place] [address] [email or web address] PCP - General 12/31/18 Hayley Pandey MD [address] [place] [address] [email or web address] Historical LMR Provider 01/15/19 03/30/21 Chloé Sánchez CNM [address] [place], [place] [phone] [email or web address] Historical LMR Provider 01/15/19 03/30/21 Dayana Galindo MD [address] [place] [address] [email or web address] Historical LMR Provider 01/15/19 03/30/[address] [place] [address] [email or web address] Historical LMR Provider 01/15/19 03/30/21 Cain Morales MD [address] [place] [phone] Historical LMR Provider 01/15/19 2 Kate Leal MD [address] [place] [address] [email or web address] Historical LMR Provider 01/15/19 03/30/21 Jennifer Bridges NP 60 [facility] 3 [place] [address] [email or web address] Historical LMR Provider 01/15/19 10/31/19 Tari Willams 15 [facility] 201 [place] [address] Historical LMR Provider 01/15/19 2 Kody Ayon MD 60 [facility] 300 [place] [address] Historical LMR Provider 01/15/19 Cynthia Allen CNM [address] [place] [address], [place] [address] Historical LMR Provider 01/15/19 03/30/21 Tari Urias DO [address] [place] [address] 200 [place] [address] Historical LMR Provider 01/15/19 10/31/19 Palak Culver CNM 15 [facility] 102 [place] [address] Historical LMR Provider 01/15/19 03/30/21 Damaso Carranza MD 15 [facility] 102 [place] [address] [email or web address] Historical LMR Provider 01/15/19 Ian Youssef MD [place] [facility] [address] [facility] [address] [place] [address] Historical LMR Provider 01/15/19 2 Jc Jacobs MD [address] [place] [address] [email or web address] Historical LMR Provider 01/15/19 03/30/21 Eliz Saleem CNM [facility], [place] [address] [email or web address] Historical LMR Provider 01/15/19 03/30/21 documented as of this encounter Additional Source Comments The information contained in this document represents components of the legal health record. It is not the complete legal health record.[facility]
--- OUTSIDE RECORDS SUMMARY | 2023-11-16 12:23 | XMS_ITS | Encounter Summary ---
Author Organization [facility] Address [phone] [facility] [place] [address] Care Team Providers Care Gate Technician Name Role Phone Jennifer Bridges NP Primary Care Provider Hayley Pandey MD Unavailable + [phone] Chloé Sánchez CNM Unavailable [phone] Dayana Galindo MD Unavailable Ruiz Lewis DO Unavailable Xiomara Cain Morales MD Unavailable Kate Leal MD Unavailable [phone] Jennifer Bridges NP Unavailable [phone] Tari Willams Unavailable [phone] Kody Ayon MD Unavailable [phone] Cynthia Allen CNM Unavailable [phone] Tari Urias DO Unavailable [phone] Palak Culver CNM Unavailable [phone] Damaso Carranza MD Unavailable aIn Youssef MD Unavailable [phone] Jc Jacobs MD Unavailable Eliz Saleem [facility] Unavailable Encounter Details Date Type Department Care Team (Latest Contact Info) Description 04/08/2019 3:19 PM EST - 04/08/2019 11:59 PM EST Hospital Encounter [facility] [address] [place] [address] Discharge Disposition: Home or Self Care Social [...] Sig Dispensed Refills Start Date End Date buPROPion (WELLBUTRIN XL) 150 MG ER 24 hr tablet Take 150 mg by mouth daily. For depression 03/05/2020 norethindrone (MICRONOR) 0.35 mg tabletIndications:Encou nter for initial prescription of contraceptive pills Take 1 tablet (0.35 mg total) by mouth daily. Micronor 1 tab po QD 28 tablet 6 03/30/2019 10/04/2019 95-iron rda-[id number]-[id number] 28 mg iron-800 mcg-200 mg Cmpk 11/09/2021 documented as of this encounter Plan of Treatment Not on file documented as of this encounter Procedures Procedure Name Priority Date/Time Associated Diagnosis Comments OUTSIDE PATHOLOGY REVIEW Routine 04/08/2019 12:00 AM EST documented in this encounter Results * Outside Pathology Review (04/08/2019 12:00 AM EST) 04/08/2019 04/08/2019 3:3 0 PM EST Narrative SEE NARRATIVE - 04/13/2019 12:41 [place] [address] ?? Surgical Pathology Outside Consultation Patient Name: MARYLOU SHAFER : 1990 (Age: 28) Sex: F Location: [facility] Institution: [facility] Date of Reported: 04/13/2019 12:41 Results To: Marce Cole MD FINAL PATHOLOGIC DIAGNOSIS: A. ENDOCERVIX, CURETTAGE ([id number], A1; 07/24/2017): ?? Adenocarcinoma in situ. B. ENDOMETRIUM, CURETTAGE ([id number], B1; 07/24/2017): ?? Scant adenocarcinoma in situ. Inactive endometrium. C. CERVIX, CONE EXCISION ([id number], C1-C8; 07/24/2017): ?? 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 Cervical intraepithelial neoplasia 3. NOTE: No definite lymphovascular invasion noted. The adenocarcinoma shows pattern C of invasion. Margins are negative for invasive and in situ carcinoma and for high grade squamous intraepithelial lesion. Selected slides reviewed in consultation with Dr. Hatfield. Electronically Signed Out By Jessica Cisneros MD Resident Pathologist: Freddy Casarez MD By his/her signature above, the pathologist listed as making the Final Diagnosis certifies that he/she has personally reviewed the case and confirmed the diagnosis. All slides and stains were of sufficient quality to establish the diagnosis, unless otherwise stated. CLINICAL HISTORY Not provided. SPECIMENS SUBMITTED: A: ENDOCERVIX, CURETTAGE ([id number], A1; 07/24/2017) B: ENDOMETRIUM, CURETTAGE ([id number], B1; 07/24/2017) C: CERVIX, CONE EXCISION ([id number], C1-C8; 07/24/2017) SLIDE-BLOCK DESCRIPTION: Consult materials received from [place], [place] on 04/08/2019. A. ENDOCERVIX, CURETTAGE ([id number], A1; 07/24/2017): ?? Stained Slides: 1 ?Unstained slides: 0 ? Blocks: 0 B. ENDOMETRIUM, CURETTAGE ([id number], B1; 07/24/2017): ?? Stained Slides: 3 ? Unstained slides: 0 ? Blocks: 0 C. CERVIX, CONE EXCISION ([id number], C1-C8; 07/24/2017): ?? Stained Slides: 8 ?Unstained slides: 0 ? Blocks: 0 Marce Yang Douglas [facility] documented in this encounter Visit Diagnoses Not on filedocumented in this encounter Care Teams Gate Technician Relationship Specialty Start Date End Date Jennifer Bridges NP [address] [facility] 3 [place] [address] [email or web address] PCP - General 12/31/18 Hayley Pandey MD [address] [place] [address] [email or web address] Historical LMR Provider 01/15/19 03/30/21 Chloé Sánchez CNM [address] [place] [address] [email or web address] Historical LMR Provider 01/15/19 03/30/21 Dayana Galindo MD [address] [place] [address] Historical LMR Provider 01/15/19 03/30/[address] [place] [address] [email or web address] Historical LMR Provider 01/15/19 03/30/21 Cain Morales MD [address] [place] [address] Historical LMR Provider 01/15/19 2 Kate Leal MD [address] [place] [address] [email or web address] Historical LMR Provider 01/15/19 03/30/21 Jennifer Bridges NP [address] [facility] 3 [place] [address] [email or web address] Historical LMR Provider 01/15/19 10/31/19 Tari Willams 15 [facility] 201 [place] [address] Historical LMR Provider 01/15/19 2 Kody Ayon MD [address] [place] [address] [address] [place] [address] Historical LMR Provider 01/15/19 Cynthia Allen CNM [address] [place] [address] Historical LMR Provider 01/15/19 03/30/21 Tari Urias DO [address] [place] [address] [address] [place] [address] Historical LMR Provider 01/15/19 10/31/19 Palak Culver CNM 15 [facility] [address] [place] [address] Historical LMR Provider 01/15/19 03/30/21 Damaso Carranza MD 15 [facility] [address] [place] [address] [email or web address] Historical LMR Provider 01/15/19 Ian Youssef MD [address] [facility] 100 [place] [address] Historical LMR Provider 01/15/19 2 Jc Jacobs MD [address] [place] [address] [email or web address] Historical LMR Provider 01/15/19 03/30/21 Eliz Saleem CNM [address] [place] [address] [email or web address] Historical LMR Provider 01/15/19 03/30/21 documented as of this encounter Additional Source Comments The information contained in this document represents components of the legal health record. It is not the complete legal health record.[facility]
--- OUTSIDE RECORDS SUMMARY | 2023-11-16 12:23 | XMS_ITS | Encounter Summary ---
Author Organization [facility] Address [address] [place] [address] Care Team Providers Care Kitchen Designer Name Role Phone Unknown, Provider Primary Care Provider [phone] Encounter Details Date Type Department Care Team (Late st Contact Info) Description 10/23/2022 Lab Requisition [facility] Pathology & Laboratory Medicine - [facility] [address] [place], [place] [id number] Camryn Roa, CUSTOMER ADVISOR SPECIALIST [address] [place], [place] [id number] Encounter for gynecological examination (general) (routine) without abnormal findings; Encounter for screening for malignant neoplasm of cervix Social History Tobacco Use Types Packs/Day Years Used Date Smoking Tobacco: Never Assessed Sex and Gender Information Value Date Recorded Sex Assigned at Not on file Gender Identity Not on file Sexual Orientation Not on file documented as of this encounter Plan of Treatment Not on file documented as of this encounter Procedures Procedure Name Priority Date/Time Associated Diagnosis Comments PAP TEST Today 10/20/2022 14:30 EDT Encounter for gynecological examination (general) (routine) without abnormal findings Encounter for screening for malignant neoplasm of cervix HUMAN PAPILLOMAVIRUS (HPV) VAGINAL DETECTION WITH GENOTYPING FOR HIGH-RISK TYPES BY PCR Today 10/20/2022 14:30 EDT Encounter for gynecological examination (general) (routine) without abnormal findings Encounter for screening for malignant neoplasm of cervix documented in this encounter Results * HUMAN PAPILLOMAVIRUS (HPV) VAGINAL DETECTION WITH GENOTYPING FOR HIGH-RISK TYPES BY PCR (4:30 EDT) HPV High Risk Type 16, PCR Negative Negative 11/03/2022 14:00 EDT [facility] HPV High Risk type 18, PCR Negative Negative 11/03/2022 14:00 EDT [facility] HPV other High Risk types, PCR Negative Negative 11/03/2022 14:00 EDT [facility] Comment: The following Other High Risk HPV types were not detected: 31, 33, 35, 39, 45, 51, 52, 56, 58, 59, 66, and 68 ADDITIONAL INFORMATION Testing was performed using the bonnie HPV assay ([employer] This report is intended for use in clinical monitoring and management of patients. ??It is not intended for use in medical-legal applications. This test has been modified from the medical science liaison's instructions. ??Its performance characteristics were determined by [facility] in a manner consistent with CLIA requirements. ??This test has not been cleared or approved by the U.S. Food and Drug Administration. Test Performed by: [facility] [place] [address] Educational Therapy Teacher: Julius Reyez M.D. Ph.D.; CLIA# [id number] Pap Test VAGINAL STRUCTURE / Unknown 10/20/2022 14:30 EDT 10/29/2022 14:12 EDT Camryn Roa NP MICROBIOLOGY - [facility] AL ORDERABLES Performing Organization Address City/State/[facility] Co de Phone Number [facility] [address] [place] [address] * PAP TEST (10/20/2022 14:30 EDT) Specimens A. Vagina , ThinPrep Imaging System with Manual Evaluation 11/03/2022 15:04 EDT [facility] Specimen Adequacy Satisfactory for Evaluation - assessment of transformation zone component not applicable ( e.g. atrophy, vaginal sample, hysterectomy) 11/03/2022 15:04 EDT [facility] General Categorization Epithelial Cell Abnormality 11/03/2022 15:04 EDT [facility] Descriptive Diagnosis Squamous Cell Abnormality - Atypical squamous cells, undetermined significance (ASC-US). 11/03/2022 15:04 [facility] Educational Comments [facility] recommends following the ASCCP's management guidelines which may be found at www.asccp.org 11/03/2022 15:04 [facility] Attestation By the signature below, the attending physician certifies that they have personally conducted a gross and/or microscopic examination of the described specimens and rendered or confirmed the above diagnosis. 11/03/2022 15:04 [facility] at 1504 Clinical History See below 11/04/19 15:04 [facility] HPV The results for the HPV Vaginal Detetction with Genotyping, PCR, ThinPrep are Negative for the HPV High Risk Type 16, PCR, Negative for the HPV High Risk type 18, PCR, and Negative for the HPV other High Risk types, PCR. Testing was performed on specimen [id number] and was resulted on 11/03/2022 1504 EDT by [facility] RESULTS IN. Comment: The following Other High Risk HPV types were not detected: 31, 33, 35, 39, 45, 51, 52, 56, 58, 59, 66, and 68 --ADDITIONAL INFORMATION------ Testing was performed using the bonnie HPV assay ([employer] This report is intended for use in clinical monitoring and management of patients. It is not intended for use in medical-legal applications. This test has been modified from the medical science liaison's instructions. Its performance characteristics were determined by [facility] in a manner consistent with CLIA requirements. This test has not been cleared or approved by the U.S. Food and Drug Administration. Test Performed by: [facility] - [address] [address] Educational Therapy Teacher: Julius Reyez M.D. Ph.D.; CLIA# [id number] 11/03/2022 15:04 [facility] Performing Lab [facility] 11/03/2022 15:04 [facility] Scanned Images 11/03/2022 15:04 EDT [facility] Pap Test VAGINAL STRUCTURE / Unknown 10/20/2022 14:30 EDT 10/23/2022 10:35 EDT Camryn Roa NP PATHOLOGY ORDERABLES [facility] [address] [place] [address] documented in this encounter Visit Diagnoses Diagnosis Encounter for gynecological examination (general) (routine) without abnormal findings Encounter for screening for malignant neoplasm of cervix Screening for malignant neoplasm of the cervix documented in this encounter Care Teams Kitchen Designer Relationship Specialty Start Date End Date Unknown, Provider, PCP - General 03/23/21 documented as of this encounter
--- OUTSIDE RECORDS SUMMARY | 2023-11-16 12:23 | XMS_ITS | Encounter Summary ---
Author Organization [facility] Address [phone] [facility] [employer] [place] [address] Care Team Providers Care Crystal Machining Coordinator Name Role Phone Jennifer Bridges NP Primary Care Provider Hayley Pandey MD Unavailable + [phone] Chloé Sánchez CNM Unavailable [phone] Dayana Galindo MD Unavailable Ruiz Lewis DO Unavailable Xiomara Cain Morales MD Unavailable Kate Leal MD Unavailable [phone] Jennifer Bridges NP Unavailable [phone] Tari Willams Unavailable [phone] Kody Ayon MD Unavailable [phone] Cynthia Allen CNM Unavailable [phone] Tari Urias DO Unavailable [phone] Palak Culver CNM Unavailable [phone] Damaso Carranza MD Unavailable Ian Youssef MD Unavailable [phone] Jc Jacobs MD Unavailable Eliz Saleem [facility] Unavailable Encounter Details Date Type Department Care Team (Late st Contact Info) Description 04/19/2019 1:00 PM EST Infusion [facility] Oncology [address] [place] [address] [place] [address] Marce Cole MD [address] [place] [address] [email or web address] Nilda Coburn, RN [address] [place] [address] [email or web address] Social History Tobacco Use Types Packs/Day Years Used Date Smoking Tobacco: Never Sex and Gender Information Value Date Recorded Sex Assigned at Female 01/11/2020 5:24 PM EDT Gender Identity Female 01/11/2020 5:24 PM EDT Sexual Orientation Straight 01/11/2020 5: 24 PM EDT documented as of this encounter Progress Notes * Nilda Gamez, RN - 04/19/2019 1:00 PM EST Pre-operative guidelines and Hibiclens prep reviewed with patient. Educational handout provided, below are the dejesus points that were discussed. All questions were answered. Patient will have a pre-op MRI and PET CT scheduled. *STOP ALL SOLID FOOD AT 10PM the night before surgery *You may have clear liquids up to 3 hours before surgery The day before surgery, please follow your surgeon???s prescribed diet. If you do not have one, please eat and drink as you normally would. Please be sure you are well hydrated. You may have any of the following drinks: Gatorade, Powerade, ClearFast, Ensure Clear Pedialyte, apple juice, cranberry juice, grape juice, and water. 1 hour before you check in to the hospital (3 hours before your surgical time) you must stop drinking completely. Do not have anything to drink at all. If you have diabetes and your blood sugar is low or you start to feel symptoms of low blood sugar, please drink a clear liquid with sugar, such as apple juice, grape juice or regular soda. If this does not help, please drink or eat any liquid or fluid that will raise your blood sugar. No matter what, it is better to delay your surgery than to ignore a low blood sugar. Even if you receive a letter from your insurance company approving a one-night stay, you will be discharged the same day. You will only stay in the hospital if there is a medical need (indication) tokeep you in the hospital over-night. Specialty Medications ?? NO NSAIDS 7 DAYS PRIOR TO SURGERY (This includes, but is not limited to, ibuprofen (Advil, Motrin), celecoxib (Celebrex), naproxen (Aleve, Anaprox, Naprosyn) ?? STOP 325 mg of Aspirin 7 days prior to surgery, unless your surgeon has advised alternate dosing ?? Please inform your surgeon if you take Xarelto, Coumadin, Plavix, Eliquis or any other anticoagulant medication ?? You may continue taking 81 mg of Aspirin daily and can take this the morning of surgery ?? If you need pain medication, it is OK to substitute Tylenol, Ultram, Percocet, or another pain reliever prescribed by your surgeon or Primary Care Physician. ?? STOP Vitamin E supplements at least 1 week before surgery ?? STOP ALL HERBAL SUPPLEMENTS (jina Krill, garlic, gingko and Fish Oil) at least 1 week before surgery. Morning of Surgery: ?? If you use inhalers or eye drops, please bring to hospital on the day of surgery. ?? Please bring your CPAP machine/mask/hoses with you to the hospital on the day of surgery. ?? See above regarding your medications and take with 1-2 sips of water Hibiclens It is recommended that you shower or bathe daily and thoroughly with the provided antibacterial soap (Hibiclens) starting 2 days before, the day before, and on the morning of the surgery (i.e. once daily for 3 days). Using this soap will help prevent infections from occurring after surgery. Avoid shaving the abdomen or groin area. Do not apply powder, lotion, deodorant, or hair products after thethird shower (i.e. on the day of your surgery). Do not use hibiclens on your face, head or groin area. Do not use if you are allergic to hibiclens. Please notify your surgeon if you are allergic, or develop a reaction. Antibacterial shower instructions: 1) Rinse your body thoroughly with water. 2) Turn the water off to prevent rinsing the Hibiclens soap off too soon. 3) Wash from the neck downwards. Be especially careful to wash the abdomen. 4) Wash your body gently for 5 minutes. 5) Turn water back on, rinse well, and pat dry with a clean towel. Two Days Before Surgery Hibiclens Body Wash One Day Before Surgery Hibiclens Body Wash OK to eat breakfast, lunch and dinner At 10 pm Stop eating all solid foods or dairy products Stop chewing gum and stop eating candy Please then consume CLEAR LIQUIDS ONLY- See allowed Clear Liquids Below If your surgeon has provided you with specific diet instructions in preparation for your surgery/procedure such as, bowel prep instructions, please follow them carefully. Please keep drinking clear liquids throughout the evening, stay hydrated ALLOWED Water / Juices (Without Pulp) Gatorade ?? /Powerade ?? / ClearFast ?? / Pedialyte ?? Clear Soft Drinks (i.e. karen fatuma) Gelatin (Jell-O ??) Clear Broth or Soup (No Noodles/Rice) Black Tea or Black Coffee (No Milk/Cream) Frozen Clear Liquids (i.e. Popsicles) NOT ALLOWED Solid Foods / Milk / Yogurt Dairy Based Drinks (Smoothies) / Cream Heard Juice / Soy Milk [place]ga/Nut Milk Before Midnight Drink 20 - 24 ounces of Gatorade Thirst Quencher ?? Day of Surgery Hibiclens Body Wash Starting 4-5 Hours Before Surgery Drink 20-24 ounces of Gatorade Thirst Quencher ?? 1 hour before your scheduled check-in to the hospital (3 hours before your surgical start time): 1. You must stop drinking completely. Do not have anything to drink at all within 60 minutes of your scheduled time to check-in to the hospital 2. If you have forgotten to drink clear liquids, that is OK. Do not drink anything at this time, wewill give you clear liquids through an IV when you arrive to the hospital Do not void before you check in for your surgery. You may be asked to give a urine sample if you are younger than 55 year old. (You will not be asked for a urine sample if you have had a hysterectomyand/or you have had your fallopian tubes and ovaries removed in the past) documented in this encounter Plan of Treatment Not on file documented as of this encounter Visit Diagnoses Not on filedocumented in this encounter Care Teams Crystal Machining Coordinator Relationship Specialty Start Date End Date Jennifer Bridges NP [address] [place] [address] 3 [place] [address] [email or web address] PCP - General 12/31/18 Hayley Pandey MD [address] [place] [address] [email or web address] Historical LMR Provider 01/15/19 03/30/21 Chloé Sánchez CNM [address] [place] [address] Historical LMR Provider 01/15/19 03/30/21 Dayana Galindo MD [address] [place] [address] Historical LMR Provider 01/15/19 03/30/21 Ruiz Lewis DO [address] [place] [address] [email or web address] Historical LMR Provider 01/15/19 03/30/21 Cain Morales MD [address] [place] [address] Historical LMR Provider 01/15/19 2 Kate Leal MD 15 [facility] 102 [place] [address] [email or web address] Historical LMR Provider 01/15/19 03/30/21 Jennifer Bridges NP 60 [facility] 3 [place] [address] [email or web address] Historical LMR Provider 01/15/19 10/31/19 Tari Willams 15 [facility] 201 [place] [address] Historical LMR Provider 01/15/19 2 Kody Ayon MD 60 [facility] 300 [place] [address] Historical LMR Provider 01/15/19 Cynthia Allen CNM [address] [place] [address], [place] [address] Historical LMR Provider 01/15/19 03/30/21 Tari Urias DO 10 [facility] 200 [place] [address] Historical LMR Provider 01/15/19 10/31/19 Palak Culver CNM 15 [facility] 102 [place] [address] Historical LMR Provider 01/15/19 03/30/21 Damaso Carranza MD 15 [facility] 102 [place] [address] Historical LMR Provider 01/15/19 Ian Youssef MD [address] [place] [address] Historical LMR Provider 01/15/19 2 Jc Jacobs MD [address] [place] [address] [email or web address] Historical LMR Provider 01/15/19 03/30/21 Eliz Saleem [place] [address] [email or web address] Historical LMR Provider 01/15/19 03/30/21 documented as of this encounter Additional Source Comments The information contained in this document represents components of the legal health record. It is not the complete legal health record.[facility]
--- OUTSIDE RECORDS SUMMARY | 2023-11-16 12:23 | XMS_ITS | Encounter Summary ---
Author Organization [facility] [place] [address] Care Team Providers Care Tank Truck Milk Receiver Name Role Phone Janina Camryn Steel APRN Primary Care Provider [phone] Encounter Details Date Type Department Care Team (Late st Contact Info) Description 04/22/2023 Ancillary Procedure Radiology Library at [facility] [place] [id number] Camryn Roa APRN [address] [place] [id number] Social History Tobacco Use Types Packs/Day Years Used Date Smoking Tobacco: Never Assessed Sex and Gender Information Value Date Recorded Sex Assigned at Not on file Gender Identity Not on file Sexual Orientation Not on file documented as of this encounter Plan of Treatment Not on file documented as of this encounter Procedures Procedure Name Priority Date/Time Associated Diagnosis Comments FILM LIBRARY STORAGE ONLY CT HEAD Routine 04/22/2023 12:00 AM EST documented in this encounter Results * Film Library- Storage Only CT Head (04/22/2023 12:00 AM EST) Narrative [facility] - 05/12/2023 8:49 PM EST This exam is auto-finalizing. It's purpose is for storage only. Camryn Roa APRN IMG FILM LIBRARY O RDERABLES [place], [place] documented in this encounter Visit Diagnoses Not on filedocumented in this encounter Care Teams Tank Truck Milk Receiver Relationship Specialty Start Date End Date Camryn Roa APRN [address] [place] [address] [phone] PCP - General Family Medicine 07/29/21 documented as of this encounter
--- OUTSIDE RECORDS SUMMARY | 2023-11-16 12:23 | XMS_ITS | Encounter Summary ---
Author Organization [facility] Address [phone] [facility] [employer] [address] [place] [address] Care Team Providers Care Chief Accounting Officer Name Role Phone Jennifer Bridges NP Primary Care Provider Hayley Pandey MD Unavailable + [phone] Chloé Sánchez CNM Unavailable [phone] Dayana Galindo MD Unavailable Ruiz Lewis DO Unavailable Xiomara Cain Morales MD Unavailable Kate Leal MD Unavailable [phone] Jennifer Bridges NP Unavailable [phone] Tari Willams Unavailable [phone] Kody Ayon MD Unavailable [phone] Cynthia Allen CNM Unavailable [phone] Tari Urias DO Unavailable [phone] Palak Culver CNM Unavailable [phone] Damaso Carranza MD Unavailable Ian Youssef MD Unavailable [phone] Jc Jacobs MD Unavailable Eliz Saleem [facility] Unavailable [phone] Reason for Referral * MRI/CAT Scan - Closed Specialty Diagnoses / Procedures Referred By Theresa lo Referred To Contact Radiology Diagnoses Malignant neoplasm of endocervix Procedures MRI Pelvis (COILED COIL INSPECTOR) Marce Cole MD [address] [place] [address] Referral ID Status Reason Start Date Expiration Date Visits Re quested Visits Authorized [id number] Closed 04/19/2019 04/18/2020 1 1 Reason for Visit * MRI/CAT Scan - Closed Specialty Diagnoses / Procedures Referred By Theresa lo Referred To Contact Radiology Diagnoses Malignant neoplasm of endocervix Procedures MRI Pelvis (COILED COIL INSPECTOR) Marce Cole MD [address] [facility] [place] [address] Referral ID Status Reason Start Date Expiration Date Visits Re quested Visits Authorized [id number] Closed 04/19/2019 04/18/2020 1 1 Encounter Details Date Type Department Care Team (Late st Contact Info) Description 04/29/2019 4:33 PM EST - 04/29/2019 11:59 PM EST Hospital Encounter MRI, [facility] - [address] [place] [address] Marce Cole MD [address] [place] [address] [email or web address] Discharge Disposition: Home or Self [...] fill ok 15 tablet 05/10/2019 10/04/2019 95-iron [id number] 28 mg iron-800 mcg-200 mg Cmpk 11/09/2021 documented as of this encounter Plan of Treatment Not on file documented as of this encounter Procedures Procedure Name Priority Date/Time Associated Diagnosis Comments MRI PELVIS (GYNECOLOGICAL) WITH AND WITHOUT CONTRAST Routine 04/29/2019 7:01 PM EST Malignant neoplasm of endocervix documented in this encounter Results * MRI PELVIS (GYNECOLOGICAL) WITH AND WITHOUT CONTRAST (04/29/2019 7:01 PM EST) Anatomical Region Laterality Modality Pelvis Magnetic Resonan ce 05/02/2019 1:04 PM EST Impressions 05/02/2019 8:23 PM EST No cervical malignancy is identified. This may be related to image noise or small lesion size. ATTESTATION: I, Dr. Kiran Krishna as teaching physician, have reviewed the images for this case and if necessary edited the report originally created by Dr. Lavelle Cook. Narrative 05/02/2019 8:23 PM EST MRI PELVIS (GYNECOLOGICAL) WITH AND WITHOUT CONTRAST TECHNIQUE: MR of the pelvis WITH AND WITHOUT intravenous gadolinium. COMPARISON: None. FINDINGS: Image quality of multiple sequences is [...] mesorectum are unremarkable. LYMPH NODES: No lymphadenopathy. Procedure Note Kiran Krishna MD - 05/02/2019 MRI PELVIS (GYNECOLOGICAL) WITH AND WITHOUT CONTRAST TECHNIQUE: MR of the pelvis WITH AND WITHOUT intravenous gadolinium. COMPARISON: None. FINDINGS: Image quality of multiple sequences is degraded by noise. UTERUS: The uterus measures 7 x 3 x 4 cm. No uterine masses. Clinically suspected cervical malignancy is not identified which may be due to smalllesion size or obscuration related to image noise. ENDOMETRIUM: Normal thickness, measuring 9 mm. OVARIES/ADNEXA: The right ovary measures 2.4 x 2.0 cm. The left ovarymeasures 2.8 x 2.0 cm. No adnexal mass. No free fluid. BLADDER: Bladder is decompressed. RECTUM: Rectum and mesorectum are unremarkable. LYMPH NODES: No lymphadenopathy. IMPRESSION: No cervical malignancy is identified. This may be related to image noiseor small lesion size. ATTESTATION: I, Dr. Kiran Krishna as teaching physician, have reviewedthe images for this case and if necessary edited the report originally createdby Dr. Lavelle Cook. [facility] MAYNARD MR PELVIS documented in this encounter Visit Diagnoses Diagnosis Malignant neoplasm of endocervix documented in this encounter Administered Medications Inactive Administered Medications - up to 3 most recent administrations Medication Order MAR Action Action Date Dose Rate Site gadoterate meglumine (DOTAREM) injection 20 mL 20 mL, Intravenous, Once as needed, other (free text field), per protocal, Starting on Thu04/29/19 at 1747, For 1 dose, Procedural Contrast/Med Active Now Given 04/29/2019 5:49 PM EST 20 mL documented in this encounter Care Teams Chief Accounting Officer Relationship Specialty Start Date End Date Jennifer Bridges NP 60 [facility] [address] [place] [address] [email or web address] PCP - General 12/31/18 Hayley Pandey MD [address] [address] Historical LMR Provider 01/15/19 03/30/21 Chloé Sánchez CNM [address] [place] [address] Historical LMR Provider 01/15/19 03/30/21 Dayana Galindo MD [address] [place] [address] Historical LMR Provider 01/15/19 03/30/21 Ruiz Lewis DO [address] [place] [address] [email or web address] Historical LMR Provider 01/15/19 03/30/21 Cain Morales MD [address] [place] [address] Historical LMR Provider 01/15/19 2 Kate Leal MD 15 [facility] [address] [place] [address] [email or web address] Historical LMR Provider 01/15/19 03/30/21 Jennifer Bridges NP 60 [facility] [address] [place] [address] [email or web address] Historical LMR Provider 01/15/19 10/31/19 aTri Willams 15 [facility] [address] [place] [address] Historical LMR Provider 01/15/19 2 Kody Ayon MD 60 [facility] [address] [place] [address] Historical LMR Provider 01/15/19 Cynthia Allen CNM [address] [place] [address], [facility] [place] [address] Historical LMR Provider 01/15/19 03/30/21 Tari Urias DO [address] [place] [address] [address] [place] [address] Historical LMR Provider 01/15/19 10/31/19 Palak Culver CNM 15 [facility] [address] [place] [address] Historical LMR Provider 01/15/19 03/30/21 Damaso Carranza MD [address] [address] Historical LMR Provider 01/15/19 Ian Youssef MD [address] [place] [address] Historical LMR Provider 01/15/19 2 Jc Jacobs MD [address] [place] [address] [email or web address] Historical LMR Provider 01/15/19 03/30/21 Eliz Saleem CN [address] [place] [address] [email or web address] Historical LMR Provider 01/15/19 03/30/21 documented as of this encounter Additional Source Comments The information contained in this document represents components of the legal health record. It is not the complete legal health record.[facility]
--- OUTSIDE RECORDS SUMMARY | 2023-11-16 12:23 | XMS_ITS | Encounter Summary ---
Author Organization [facility] Address [phone] [facility] [place] [address] Care Team Providers Care Lawn Specialist Name Role Phone Jennifer Bridges NP Primary Care Provider Hayley Pandey MD Unavailable + [phone] Chloé Sánchez CNM Unavailable [phone] Dayana Galindo MD Unavailable Ruiz Lewis DO Unavailable Xiomara Cain Morales MD Unavailable Kate Leal MD Unavailable [phone] Jennifer Bridges NP Unavailable [phone] Tari Willams Unavailable [phone] Kody Ayon MD Unavailable [phone] Cynthia Allen CNM Unavailable [phone] Tari Urias DO Unavailable [phone] Palak Culver CNM Unavailable [phone] Damaso Carranza MD Unavailable Ian Youssef MD Unavailable [phone] Jc Jacobs MD Unavailable [phone] Eliz Saleem [facility] Unavailable Reason for Referral * MRI/CAT Scan - Closed Specialty Diagnoses / Procedures Referred By Theresa lo Referred To Contact Radiology Diagnoses Malignant neoplasm of endocervix Procedures NM PET CT Skull Base to Mid Thighs Marce Cole MD [address] [place] [address] Referral ID Status Reason Start Date Expiration Date Visits Re quested Visits Authorized [id number] Closed 04/19/2019 05/19/2019 1 1 * MRI/CAT Scan - Closed Specialty Diagnoses / Procedures Referred By Theresa lo Referred To Contact Radiology Diagnoses Malignant neoplasm of endocervix Procedures MRI Pelvis (DEVELOPMENTAL SERVICES WORKER) Marce Cole MD [address] [place], [place] [id number] Referral ID Status Reason Start Date Expiration Date Visits Re quested Visits Authorized [id number] Closed 04/19/2019 04/18/2020 1 1 Reason for Visit * Consultation (Within 1 month) - Closed Specialty Diagnoses / Procedures Referred By Theresa lo Referred To Contact Diagnoses Adenocarcinoma of cervix Damaso Carranza MD [address] [place] [address] Email: [email or web address] [facility] Referral ID Status Reason Start Date Expiration Date Visits Re quested Visits Authorized [id number] Closed 03/30/2019 03/30/2020 1 1 Encounter Details Date Type Department Care Team (Late st Contact Info) Description 04/19/2019 11:00 AM EST Office Visit [facility] Oncology [address] [facility] [address] [place] [address] Marce Cole MD [address] [facility] [place] [address] [email or web address] Malignant neoplasm of endocervix (Primary Dx) Social History Tobacco Use Types Packs/Day Years Used Date Smoking Tobacco: Never Sex and Gender Information Value Date Recorded Sex Assigned at Female 01/11/2020 5:24 PM EDT Gender Identity Female 01/11/2020 5:24 PM EDT Sexual Orientation Straight 01/11/2020 5: 24 PM EDT documented as of this encounter Last Filed Vital Signs Vital Sign Reading Time Taken Comments Blood Pressure 107/73 04/19/2019 11:23 AM EST Pulse 83 04/19/2019 11:23 AM EST Temperature 37.3 ??C (99.1 ??F) 04/19/2019 1 1:23 AM EST Respiratory Rate 16 04/19/2019 11:2 3 AM EST Oxygen Saturation 99% 04/19/2019 11: 23 AM EST Inhaled Oxygen Concentration - - Weight 59.3 kg (130 lb 12.8 oz) 020 11:23 AM EST Height 150.8 cm (4' 11.37) 04/19/2019 11:23 AM EST Body Mass Index 26.09 04/19/2019 11:23 AM EST documented in this encounter Progress Notes * Marce Cole MD - 04/19/2019 11:00 AM EST Images from the original note were not included. ?? [facility] for Drop Wire Operator Oncology [address] [place] [address] P [phone] F [phone] Gynecologic Oncology ? ?Patient: Marylou Shafer ?MR#: [id number] ?: 1990 ?Jennifer Bridges APRN ? ?GYNECOLOGIC ONCOLOGY CLINIC ? ?CONSULTATION NOTE ? ?IDENTIFICATION: Marylou Shafer is a dennis 28 y.o.-year-old unspecified para 2 premenopausal female who I am seeing at the request of Dr. 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 Presence of the adenocarcinoma was known in 2019, but treatment was deferred in order to have a child. She is now s/p 10/06/2018. Problem List Items Addressed This Visit None Visit Diagnoses Malignant neoplasm of endocervix - Primary Relevant Orders MRI Pelvis (DEVELOPMENTAL SERVICES WORKER) NM PET CT Skull Base to Mid Thighs ? ?Marylou Shafer was diagnosed with invasive adenocarcinoma of the cervix and is here for discussion of potential surgical or medical management. She reports she is doing well overall. In 2018, she underwent PAP which revealed the presence of abnormal tissue. She underwent a cone biopsy which revealed cancer, microscopic IB1, but it seemed to have been wholly removed through the biopsy. An ECC was also conducted which showed precancer cells, AIS, in the upper areas of her cervix.Additional treatment was deferred until after childbearing as she wished to have another child. She believes she no longer wants children as she is now 5 months . She is currently taking bupropion for anxiety and depression. Her menstruation has not resumed. She is currently . 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 Her child, Bucky, is now 6 months old. She also has an 11 year old child. 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 She is accompanied by her Oscar, during today's visit. ? ?No past medical history on file. ? ? Past Surgical History: Procedure Laterality Date ??? UNCODED SURGICAL HISTORY Asthma as child, allergies now ??? UNCODED SURGICAL HISTORY Polydypsia ??? UNCODED SURGICAL HISTORY Cervical Dysplasia, mild; Colposcopy, without biopsy; 10/14/2013; [facility]?? UNCODED SURGICAL HISTORY Abdominal pain ??? [...] 2005 ??? UNCODED SURGICAL HISTORY Polyuria ? ?POB/COVER REMOVER: G unspecified P2 Vaginal ? ? Current Outpatient Medications Medication Sig Dispense Refill Last Dispense ??? buPROPion (WELLBUTRIN XL) 150 MG ER 24 hr tablet Take 150 mg by mouth daily. For depression Unknown (patient-reported) ??? norethindrone (MICRONOR) 0.35 mg tablet Take 1 tablet (0.35 mg total) by mouth daily. Micronor 1 tab po QD 28 tablet 6 Unknown (outside pharmacy) ??? 95-iron asn-mxcnv-gfm ( + DHA) 28 mg iron-800 mcg-200 mg Cmpk Unknown (patient-reported) No current facility-administered medications for this visit. ? ? Allergies Allergen Reactions ??? Cephalexin Monohydrate ??? Paroxetine Hcl Nausea Only ??? Penicillin ??? Penicillins Rash ??? Sertraline Nausea Only ??? Sulfamethoxazole ??? Trimethoprim ??? Valacyclovir Hcl ? ? Social History Occupational History ??? Not on file Tobacco Use ??? Smoking status: Never Smoker Substance and Sexual Activity ??? Alcohol use: Not on file ??? Drug use: Not on file ??? Sexual activity: Not on file ? ? Family History Problem Relation Age of Onset ??? Hypertension Father Hypertension ??? Asthma Sister Asthma ??? Diabetes mellitus Father Diabetes mellitus ??? Obesity Sister Obesity ??? Asthma Daughter Asthma ??? Obesity Father Obesity ??? Obesity Mother Obesity ??? Thyroid disease Mother Thyroid disorder ??? Stroke Father Stroke ? ?On review of systems today, she is doing well overall. Review of Systems Constitutional: negative Card: negative Resp: negative GI: negative : negative Skin: negative Neuro: negative Psych: negative Allergic: negative Heme: negative ?PHYSICAL EXAMINATION: BP 107/73 (BP Location: Right arm, Patient Position: Sitting, Cuff Size: Medium) Pulse 83 Temp 37.3 ??C (99.1 ??F) Resp 16 Ht 150.8 cm (4' 11.37) Wt 59.3 kg (130 lb 12.8 oz) SpO2 99% BMI 26.09 kg/m?General: Well-appearing and in NAD Alert and oriented x3, interactive HEENT: Oral and mucous membranes are intact without evidence of dehydration or lesions. Sclera are anicteric. ? Respir: CTAB, no wheezes/crackles/rhonchi CV: RRR Abd: Soft, non-distended, non-tender. No R/G, No hernias. Pelvic: Normal external female genitalia. Urethra is normal appearing. Spec: unremarkable vagina and cervix with no lesions. The cervix is flush to the vagina, no visiblelesions BME: no abnormal cervical masses and a mobile uterus, no evidence of parametrial extension Extr: no edema/cyanosis/clubbing. Skin: No rashes? The MA joined me for the exam. Diagnostic Data Reviewed: Pathology: 04/08/2019 Surg Path: FINAL PATHOLOGIC DIAGNOSIS: A. ENDOCERVIX, CURETTAGE ([id number], A1; 07/24/2017): Adenocarcinoma in situ. B. ENDOMETRIUM, CURETTAGE ([id number], B1; 07/24/2017): Scant adenocarcinoma in situ. Inactive endometrium. C. CERVIX, CONE EXCISION ([id number], C1-C8; 07/24/2017): Invasive endocervical adenocarcinoma, grade 2, [...] Shafer is a dennis 28 y.o.-year-old who presents with invasive endocervical adenocarcinoma of there cervix. She is s/p on 10/06/2018. 1. Stage IB1` Invasive carcinoma of the Cervix: We discussed the nature and classifications of cervical precancers and cancers. Reviewed the pathology, cervical cancer in general and the plan for further studies to better characterize this lesion in order to best understand how to treat. I reviewed that surgery, radiation andchemotherapy are all modalities used to treat this type of cancer and that an MRI of the pelvis as well as PET- CT are used to define the architecture of the tumor in the pelvis, as well as assess fordistant spread. I reviewed that based on these findings, I recommend upfront surgery with a radicalhysterectomy and pelvic lymph node dissection. I reviewed the nature of adenocarcinoma of the cervix, the natural history and the importance of understanding the location to tailor the treatment. Because of her young age, her ovaries will not be removed. Discussed the surgery, the risks including bleeding, infection, injury to other structures such as bowel, bladder, ureters, blood vessels, nerves, the need for an open incision to complete the surgery and the need for additional procedures should unexpected situations arise. All questions were answered in the direct face to face conversation and consent was signed. We discussed the recovery process and the restriction after surgery, including avoiding picking up her baby for about 6 weeks and needing an SPT, as this procedure may temporary paralyze her bladder. Because she is , she will be provided a pump. Afterwards the child may be shuttled back and forth from the hospital. We will contact her regarding the OR date and pre-op labs will be obtained as indicated today in anticipation of phone PATA. The surgery will be scheduled for mid 04/2019. I discussed that I will present her case at our tumor board as the chronology of her care is uncommon with an intervening suggesting the possibility that a less radical, even laparoscopic approach may be appropriate for her clinical scenario. MRI and PET CT will be scheduled today. She will be called if there are any findings or changes in my recommendations. Follow up appointments after the surgery may be continued at [facility] for convenience. It is a pleasure being involved in her care. Greater than 50% of this 60 minute interview was spent in direct patient counseling. Marce Cole MD [facility] Radha Herrera, am acting as a scribe for Marce Cole for Marylou Cook Sarahmalia on 04/23/19 Marce Herrera, personally evaluated the patient and reviewed the history, physical examination, assessment and plan as documented by Radha Galan, medical terminologist. My significant findings and changes have been incorporated into the note as needed. Consent to use a scribe was obtained prior to thestart of the encounter by clinical staff. Marylou Cook Sarahevezulema 04/23/19 documented in this encounter Plan of Treatment Not on file documented as of this encounter Results * NM PET CT Skull Base to Mid Thighs (05/02/2019 2:00 PM EST) Anatomical Region Laterality Modality Positron Emissio n Tomography (PET) 05/02/2019 3:06 PM EST Impressions 05/02/2019 9:57 PM EST No FDG avid metastases in the neck, [...] report originally created by Dr. Yue Nugent. Narrative 05/02/2019 9:57 PM EST 18F-FDG PET/CT scan: INDICATION:Endocervical adenocarcinoma. Initial Staging. COMPARISON: No prior PET scans are available for comparison. TECHNIQUE: ?? 14.92 mCi F-18 FDG was injected. ??Approximately 60 minutes later, tomographic images of the body from neck to proximal thigh were acquired. ??Images were reviewed in axial, coronal, and sagittal projections. ??The patient's blood glucose at the time of imaging was 80 mg/dl. This study was performed as part of a combined PET/CT scan. ??Separate subspecialty reports will be issued for the individual organ systems. Requesting physicians are referred to the reports from all components of the study. ?? FINDINGS: NECK: Aside from physiologic distribution, no abnormal FDG uptake is seen in the neck. CHEST: Aside from physiologic distribution, no abnormal FDG uptake is seen in the chest. Symmetric bilateral breast uptake consistent with lactating breasts. The subcentimeter pulmonary nodule described on the accompanying CT report does not demonstrate FDG uptake, but is too small for uptake to be reliably quantitated. ABDOMEN & PELVIS: Aside from physiologic distribution of uptake, no abnormal FDG uptake is seen in the abdomen or pelvis. Small focus of uptake in the midline pelvis likely reflects urine in the urethra. MUSCULOSKELETAL: Aside from physiologic distribution of uptake, no abnormal FDG uptake is seen in the proximal extremities. Procedure Note Verena Louis MD, PhD - 05/02/2019 18F-FDG PET/CT scan: INDICATION:Endocervical adenocarcinoma. Initial Staging. COMPARISON: No prior PET scans are available for comparison. TECHNIQUE: 14.92 mCi F-18 FDG was injected. Approximately 60 minutes later,tomographic images of the body from neck to proximal thigh were acquired. Imageswere reviewed in axial, coronal, and sagittal projections. The patient'sblood glucose at the time of imaging was 80 mg/dl. This study was performed as part of a combined PET/CT scan. Separate subspecialty reports will be issued for the individual organ systems. Requesting physicians are referred to the reports from all components ofthe study. FINDINGS: NECK: Aside from physiologic distribution, no abnormal FDG uptake is seen in theneck. CHEST: Aside from physiologic distribution, no abnormal FDG uptake is seen inthe chest. Symmetric bilateral breast uptake consistent with lactating breasts. The subcentimeter pulmonary nodule described on the accompanying CT reportdoes not demonstrate FDG uptake, but is too small for uptake to be reliably quantitated. ABDOMEN & PELVIS: Aside from physiologic distribution of uptake, no abnormal FDG uptake isseen in the abdomen or pelvis. Small focus of uptake in the midline pelvis likely reflects urine in the urethra. MUSCULOSKELETAL: Aside from physiologic distribution of uptake, no abnormal FDG uptake isseen in the proximal extremities. IMPRESSION: No FDG avid metastases in the neck, chest, abdomen or pelvis. Primarytumor is not clearly visualized, which could reflect minimal tumor burden or lackof FDG avidity. Uptake in the midline pelvis likely reflects urine in the urethra. ATTESTATION: I, Dr. Verena Louis as teaching physician, have reviewed theimages for this case and if necessary edited the report originally created by Dr.Sarah Agustina Nugent. [facility] Douglas HARRINGTON IMG NM PET * MRI PELVIS (GYNECOLOGICAL) WITH AND WITHOUT [...] the report originally createdby Dr. Lavelle Cook. [facility] Douglas HARRINGTON IMLeighann MR PELVIS documented in this encounter Visit Diagnoses Diagnosis Malignant neoplasm of endocervix- Primary 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 documented in this encounter Care Teams Lawn Specialist Relationship Specialty Start Date End Date Jennifer Bridges NP [address] [place] [phone] [email or web address] PCP - General 12/31/18 Hayley Pandey MD [address] [phone] [email or web address] Historical LMR Provider 01/15/19 03/30/21 Chloé Sánchez CN [address] [place] [phone] [email or web address] Historical LMR Provider 01/15/19 03/30/21 Dayana Galindo MD [address] [place] [phone] [email or web address] Historical LMR Provider 01/15/19 03/30/21 Ruiz Lewis DO [address] [place] [address] [email or web address] Historical LMR Provider 01/15/19 03/30/21 Cain Morales MD [address] [place] [address] Historical LMR Provider 01/15/19 2 Kate Leal MD [address] [place] [phone] [email or web address] Historical LMR Provider 01/15/19 03/30/21 Jennifer Bridges NP [address] [place] [phone] [email or web address] Historical LMR Provider 01/15/19 10/31/19 Tari Willams 15 [facility] [address] [place] [address] Historical LMR Provider 01/15/19 Kody Ayon MD [address] [place] [address] Historical LMR Provider 01/15/19 Cynthia [place] [address] Historical LMR Provider 01/15/19 03/30/21 Tari Urias DO [address] [place] [address] [address] [place] [address] Historical LMR Provider 01/15/19 10/31/19 Palak Culver CNM 15 [facility] [address] [place] [address] Historical LMR Provider 01/15/19 03/30/21 Damaso Carranza MD 15 [facility] [address] [place] [address] Historical LMR Provider 01/15/19 Ian Youssef MD [address] [place] [address] Historical LMR Provider 01/15/19 2 Jc Jacobs MD [address] [place] [phone] [email or web address] Historical LMR Provider 01/15/19 03/30/21 Eliz Sale[place] [address] [email or web address] Historical LMR Provider 01/15/19 03/30/21 documented as of this encounter Additional Source Comments The information contained in this document represents components of the legal health record. It is not the complete legal health record.[facility]
--- OUTSIDE RECORDS SUMMARY | 2023-11-16 12:23 | XMS_ITS | Clinical Summary ---
Author Organization [facility] Address [address] [place] [address] Care Team Providers Care Gas Welding Equipment Mechanic Name Role Phone Unknown, Provider Primary Care Provider Social History Tobacco Use Types Packs/Day Years Used Date Smoking Tobacco: Never Assessed Sex and Gender Information Value Date Recorded Sex Assigned at Not on file Gender Identity Not on file Sexual Orientation Not on file Plan of Treatment Health Maintenance Due Date Last Done Comments Hepatitis C Screen 1990 Hepatitis B Vaccine (1 of 3 - 19+ 3-dose series) 10/12 COVID-19 Vaccine ( season) 2022 Care Teams Gas Welding Equipment Mechanic Relationship Specialty Start Date End Date Unknown, Provider, PCP - General 03/23/21
--- OUTSIDE RECORDS SUMMARY | 2023-11-16 12:23 | XMS_ITS | Referral Summary ---
Author Organization [facility] Address [address] [place] [address] Care Team Providers Care Sand Slinger Name Role Phone Unknown, Provider Primary Care Provider Social History Tobacco Use Types Packs/Day Years Used Date Smoking Tobacco: Never Assessed Sex and Gender Information Value Date Recorded Sex Assigned at Not on file Gender Identity Not on file Sexual Orientation Not on file Plan of Treatment Not on file Care Teams Sand Slinger Relationship Specialty Start Date End Date Unknown, Provider, PCP - General 03/23/21
--- OUTSIDE RECORDS SUMMARY | 2023-11-16 12:23 | XMS_ITS | Encounter Summary ---
Author Organization [facility] Address [address] [place] [address] Care Team Providers Care Inner Diameter Grinder Tool Name Role Phone Unknown, Provider Primary Care Provider Encounter Details Date Type Department Care Team (Late st Contact Info) Description 04/15/2021 Lab Requisition [facility] Pathology & Laboratory Medicine - [address] [phone] Christoph Silverman MD [address] [place] [phone] Encounter for other general examination Social History Tobacco Use Types Packs/Day Years Used Date Smoking Tobacco: Never Assessed Sex and Gender Information Value Date Recorded Sex Assigned at Not on file Gender Identity Not on file Sexual Orientation Not on file documented as of this encounter Plan of Treatment Not on file documented as of this encounter Procedures Procedure Name Priority Date/Time Associated Diagnosis Comments SURGICAL PATHOLOGY Today 04/13/2021 12 :38 EST documented in this encounter Results * SURGICAL PATHOLOGY (04/13/2021 12:38 EST) Note to Patient The following pathology results have been interpreted by your pathologist and may be available to you before your health provider has had the opportunity to review them. Please allow time for your provider to receive these results and explore management options, if applicable. 04/18/2021 16:46 EST [facility] Final Diagnosis A. PORTION OF OMENTUM, PARTIAL OMENTECTOMY: - Omental tissue with focal active/acute inflammatory changes and fibrino-inflammat ory exudate. 04/18/2021 16:46 EST [facility] Attestation There was significant resident/fellow involvement in the diagnostic evaluation of this case. By the signature below, the attending physician certifies that they have personally conducted a gross and/or microscopic examination of the described specimens and rendered or confirmed the above diagnosis. 04/18/2021 16:46 [facility] at 1646 Clinical History Wound dehiscence 04/18/2021 16:46 [facility] Gross Description A. Received in formalin labelled with proper patient identification (initials B, M) and partial omentectomy is a portion of lobulated omentum (4.6 x 2.8 x 1.0 cm). The outer surface is yellow to dull caicedo-rodrigues and partially surfaced by caicedo-white exudate. Sectioning reveals yellow lobulated cut surfaces devoid of gross lesions. On Site Soil Evaluator sections are submitted in A1 and A2. TOO WEBER([facility]) 04/16/2021 8:06 04/18/2021 16:46 [facility] Resident/Kameron w: Danay Cohen MD 04/18/2021 16:46 [facility] Performing Lab [facility] 04/18/2021 16:46 [facility] Scanned Images 04/18/2021 16:46 [facility] Tissue ENTIRE OMENTUM / Unknown 04/13/2021 12:38 EST 04/15/2021 23:30 EST Christoph Silverman MD PATHOLOGY ORDERABLES Performing Organization Address City/State/[facility] Co de Phone Number [facility] [address] [place] [phone] documented in this encounter Visit Diagnoses Diagnosis Encounter for other general examination documented in this encounter Care Teams Inner Diameter Grinder Tool Relationship Specialty Start Date End Date Unknown, Provider, PCP - General 03/23/21 documented as of this encounter
--- OUTSIDE RECORDS SUMMARY | 2023-11-16 12:23 | XMS_ITS | Encounter Summary ---
Author Organization [facility] Address [phone] [facility] [employer] [place] [address] Care Team Providers Care Wholesale Manager Name Role Phone Jennifer Bridges NP Primary Care Provider Hayley Pandey MD Unavailable + [phone] Chloé Sánchez CNM Unavailable [phone] Dayana Galindo MD Unavailable Ruiz Lewis DO Unavailable Xiomara Cain Morales MD Unavailable Kate Leal MD Unavailable [phone] Jennifer Bridges NP Unavailable +[phone] Tari Willams Unavailable [phone] Kody Ayon MD Unavailable [phone] Cynthia Allen CNM Unavailable [phone] Tari Urias DO Unavailable [phone] Palak Culver CNM Unavailable +[phone] Damaso Carranza MD Unavailable Ian Youssef MD Unavailable [phone] Jc Jacobs MD Unavailable [phone] Eliz Saleem [facility] Unavailable Belén Bravo MD Primary Care Provider Unknown, Unknown Primary Care Provider Kelly henson Encounter Details Date Type Department Care Team (Late st Contact Info) Description 04/19/2019 Procedure Pass MRI, [facility] [place] [address] [place] [address] Social History Tobacco Use Types Packs/Day Years [...] documented as of this encounter Care Teams Wholesale Manager Relationship Specialty Start Date End Date Jennifer Bridges NP [address] [place] [phone] [email or web address] PCP - General 12/31/18 10/31/19 Belén Bravo MD [address] [place] [address] [email or web address] PCP - General Family Medicine 11/01/19 06/08/23 Unknown, Unknown, PCP - General 07/31/23 Hayley Pandey MD 15 [place] [address] [email or web address] Historical LMR Provider 01/15/19 03/30/21 Chloé Sánchez CNM 15 [facility] 102 [place] [address] [email or web address] Historical LMR Provider 01/15/19 03/30/21 Dayana Galindo MD 15 [facility] 102 [place] [address] [email or web address] Historical LMR Provider 01/15/19 03/30/[address] [place] [address] [email or web address] Historical LMR Provider 01/15/19 03/30/21 Cain Morales MD [address] [place] [address] Historical LMR Provider 01/15/19 Kate Sandoval MD [address] [facility] 102 [place] [address] [email or web address] Historical LMR Provider 01/15/19 03/30/21 Jennifer Bridges, MONICA 60 [facility] 3 [place] [address] [email or web address] Historical LMR Provider 01/15/19 10/31/19 Tari Willams 15 [facility] 201 [place] [address] Historical LMR Provider 01/15/19 2 Kody Ayon MD [address] [place] [address] 300 [place] [address] Historical LMR Provider 01/15/[address] Allen CNM [address], [place] [address] Historical LMR Provider 01/15/19 03/30/21 Tari Urias DO [address] [place] [address] 200 [place] [address] Historical LMR Provider 01/15/19 10/31/19 Palak Culver CNM 15 [facility] 102 [place] [address] Historical LMR Provider 01/15/19 03/30/21 Damaso Carranza MD 15 [facility] 102 [place] [address] Historical LMR Provider 01/15/19 Ian Youssef MD [address] [place] [address] 100 [place] [address] Historical LMR Provider 01/15/19 2 Jc Jacobs MD [address] [place] [address] [email or web address] Historical LMR Provider 01/15/19 03/30/21 Eliz Saleem CNM [employer], [facility] [place] [address] [email or web address] Historical LMR Provider 01/15/19 03/30/21 documented as of this encounter Additional Source Comments The information contained in this document represents components of the legal health record. It is not the complete legal health record.[facility]
--- OUTSIDE RECORDS SUMMARY | 2023-11-16 12:23 | XMS_ITS | Encounter Summary ---
Author Organization [facility] Address [address] [place] [address] Care Team Providers Care Housekeeper Manager Name Role Phone Unknown, Provider Primary Care Provider [phone] Encounter Details Date Type Department Care Team (Late st Contact Info) Description 04/09/2021 Lab Requisition [facility] Pathology & Laboratory Medicine - [address] [phone] Bucky Eastman MD [address] [place] [address] [phone] Encounter for other general examination Social History [...] Date/Time Associated Diagnosis Comments SURGICAL PATHOLOGY Today 04/08/2021 18 :29 EST documented in this encounter Results * SURGICAL PATHOLOGY (04/08/2021 18:29 EST) Note to Patient The following pathology results have been interpreted by your pathologist and may be available to you before your health provider has had the opportunity to review them. Please allow time for your provider to receive these results and explore management options, if applicable. 04/11/2021 18:05 EST [facility] Final Diagnosis A. APPENDIX, APPPENDECTOMY: - Appendix with no significant diagnostic abnormality. - Negative for acute appendicitis in entirely submitted appendix. 04/11/2021 18:05 EST [facility] Attestation By the signature below, the attending physician certifies that they have 1) personally conducted a gross and/or microscopic examination of the described specimen(s), and/or personally interpreted the results of laboratory testing of the described specimen(s), and 2) personally rendered or confirmed the above diagnosis. 04/11/2021 18:05 [facility] at 1805 Clinical History Abnormal imaging; possible appendicitis 04/11/2021 18:05 [facility] Gross Description A. Received in formalin labelled with proper patient identification (initials B, M) and appendix is an appendix (7.5 cm in length x 0.6 cm in diameter), with no attached mesoappendix. The proximal margin is open. The serosa is rodrigues-caicedo with multiple rodrigues adhesions. The cut surface is rodrigues-caicedo. The average wall thickness is 0.1 cm. A perforation site is not identified. The lumen ranges from 0.1 cm to 0.3 cm in diameter. A fecalith is not identified. The proximal margin is inked. The specimen is entirely submitted, sequentially from proximal to distal, in A1-A6. TOO MUJICA(ASCP) 04/10/2021 10:46 04/11/2021 18:05 [facility] Performing Lab [facility] 04/11/2021 18:05 [facility] Scanned Images 04/11/2021 18:05 [facility] Tissue ENTIRE APPENDIX / Unknown 04/08/2021 18:29 EST 04/09/2021 23:46 EST Bucky Eastman MD PATHOLOGY ORDERA VIJI [facility] [address] [place] [address] documented in this encounter Visit Diagnoses Diagnosis Encounter for other general examination documented in this encounter Care Teams Housekeeper Manager Relationship Specialty Start Date End Date Unknown, Provider, PCP - General 03/23/21 documented as of this encounter
--- OUTSIDE RECORDS SUMMARY | 2023-11-16 12:23 | XMS_ITS | Encounter Summary ---
Author Organization [facility] Address [phone] [facility] [place] [address] Care Team Providers Care Ctrs Name Role Phone Jennifer Bridges NP Primary Care Provider Hayley Pandey MD Unavailable + [phone] Chloé Sánchez CNM Unavailable [phone] Dayana Galindo MD Unavailable Ruiz Lewis DO Unavailable Xiomara Cain Morales MD Unavailable Kate Leal MD Unavailable [phone] Jennifer Bridges NP Unavailable [phone] Tari Willams Unavailable [phone] Kody Ayon MD Unavailable [phone] Cynthia Allen CNM Unavailable [phone] Tari Urias DO Unavailable [phone] Palak Culver CNM Unavailable [phone] Damaso Carranza MD Unavailable Ian Youssef MD Unavailable [phone] Jc Jacobs MD Unavailable [phone] Eliz Saleem [facility] Unavailable Encounter Details Date Type Department Care Team (Late st Contact Info) Description 05/04/2019 Telephone [facility] Oncology [address] [facility] [address] [place] [address] Jennifer Reyes, RN [address] [place] [address] [email or web address] Social History Tobacco Use Types Packs/Day Years [...] of this encounter Progress Notes * Jennifer Murphy R.N., TAWANA - 05/04/2019 3:40 PM EST No answer, left message. ----- Message from Keeley Wynn sent at 05/04/2019 1:07 PM EST ----- Regarding: Phone; Dr Cole Contact: Contact: pt Re: pt has upcoming surgery she would like to know what type of anesthesia they going to be using Thank you Bar documented in this encounter Plan of Treatment Not on file documented as of this encounter Visit Diagnoses Not on filedocumented in this encounter Care Teams Ctrs Relationship Specialty Start Date End Date Jennifer Bridges NP [address] [place] [phone] [email or web address] PCP - General 12/31/18 Hayley Pandey MD [address] [place] [address] [email or web address] Historical LMR Provider 01/15/19 03/30/21 Chloé Sánchez CNM 15 [facility] 102 [place] [address] [email or web address] Historical LMR Provider 01/15/19 03/30/21 Dayana Galindo MD 15 [facility] 102 [place] [address] [email or web address] Historical LMR Provider 01/15/19 03/30/21 Ruiz Lewis DO [address] [place] [address] [email or web address] Historical LMR Provider 01/15/19 03/30/21 Cain Morales MD [address] [place] [address] Historical LMR Provider 01/15/19 2 Kate Leal MD [address] [place] [address] [email or web address] Historical LMR Provider 01/15/19 03/30/21 Jennifer Bridges NP [address] [place] [address] 3 [place] [phone] [email or web address] Historical LMR Provider 01/15/19 10/31/19 Tari Willams 15 [facility] 201 [place] [address] Historical LMR Provider 01/15/19 2 Kody Ayon MD [address] [place] [address] 300 [place] [address] Historical LMR Provider 01/15/[address], [facility] [place] [address] Historical LMR Provider 01/15/19 03/30/21 Tari Urias DO [address] [place] [address] 200 [place] [address] Historical LMR Provider 01/15/19 10/31/19 Palak Culver CNM 15 [facility] 102 [place] [address] Historical LMR Provider 01/15/19 03/30/21 Damaso Carranza MD 15 [facility] 102 [place] [address] Historical LMR Provider 01/15/19 Ian Youssef MD [address] [place] [address] 100 [place] [address] Historical LMR Provider 01/15/19 2 Jc Jacobs MD [address] [place] [address] [place] [address] [email or web address] Historical LMR Provider 01/15/19 03/30/21 Eliz Saleem CNM [email or web address], [facility] [place] [address] [email or web address] Historical LMR Provider 01/15/19 03/30/21 documented as of this encounter Additional Source Comments The information contained in this document represents components of the legal health record. It is not the complete legal health record.[facility]
--- OUTSIDE RECORDS SUMMARY | 2023-11-16 12:23 | XMS_ITS | Encounter Summary ---
Author Organization [facility] Address [facility] [place] [address] Care Team Providers Care Threading Machine Tender Name Role Phone Camryn Roa APRN Primary Care Provider [phone] Encounter Details Date Type Department Care Team (Late st Contact Info) Description 04/22/2023 10:40 PM EST Telehealth notes [place] [address] Telehealth, Neurology None Social History Tobacco Use Types Packs/Day Years Used Date Smoking Tobacco: Never Assessed Sex and Gender Information Value Date Recorded Sex Assigned at Not on file Gender Identity Not on file Sexual Orientation Not on file documented as of this encounter Plan of Treatment Not on file documented as of this encounter Visit Diagnoses Not on filedocumented in this encounter Care Teams Threading Machine Tender Relationship Specialty Start Date End Date Camryn Roa APRN [address] [place] [address] PCP - General Family Medicine 07/29/21 documented as of this encounter
--- OUTSIDE RECORDS SUMMARY | 2023-11-16 12:23 | XMS_ITS | Encounter Summary ---
Author Organization [facility] Address [phone] [facility] [place] [address] Care Team Providers Care Microarray Specialist Name Role Phone Jennifer Bridges NP Primary Care Provider Hayley Pandey MD Unavailable + [phone] Chloé Sánchez CNM Unavailable [phone] Dayana Galindo MD Unavailable Ruiz Lewis DO Unavailable Xiomara Cain Morales MD Unavailable Kate Leal MD Unavailable [phone] Jennifer Bridges NP Unavailable [phone] Tari Willams Unavailable [phone] Kody Ayon MD Unavailable [phone] Cynthia Allen CNM Unavailable [phone] Tari Urias DO Unavailable [phone] Palak Culver CNM Unavailable [phone] Damaso Carranza MD Unavailable Ian Youssef MD Unavailable [phone] Jc Jacobs MD Unavailable Eliz Saleem CNM Unavailable [phone] Reason for Visit * Reason Onset Date Comments referral 03/31/2019 see note Encounter Details Date Type Department Care Team (Late st Contact Info) Description 03/31/2019 Telephone [facility] Medical Oncology [address] [place] [address] Nina Lujan, RN [address] [place] [address] [email or web address] referral (see note) Social History Tobacco Use Types Packs/Day Years Used Date Smoking Tobacco: Never Sex and Gender Information Value Date Recorded Sex Assigned at Female 01/11/2020 5:24 PM EDT Gender Identity Female 01/11/2020 5:24 PM EDT Sexual Orientation Straight 01/11/2020 5: 24 PM EDT documented as of this encounter Progress Notes * Nina Lujan RN - 03/31/2019 3:38 PM EST Spoke with pt. She would like to discuss timing and location with her family and will call back to advise on decision. Contact information was provided....KMQ documented in this encounter Plan of Treatment Not on file documented as of this encounter Visit Diagnoses Not on filedocumented in this encounter Care Teams Microarray Specialist Relationship Specialty Start Date End Date Jennifer Bridges NP [address] [place] [phone] [email or web address] PCP - General 12/31/18 Hayley Pandey MD [address] [address] [email or web address] Historical LMR Provider 01/15/19 03/30/21 Chloé Sánchez CNM 15 [facility] 102 [place] [address] [email or web address] Historical LMR Provider 01/15/19 03/30/21 Dayana Galindo MD 15 [facility] 102 [place] [address] [email or web address] Historical LMR Provider 01/15/19 03/30/21 Ruiz [address] DO [address] [place] [phone] [email or web address] Historical LMR Provider 01/15/19 03/30/21 Cain Morales MD [address] [place] [address] 401 [place], [place] [phone] Historical LMR Provider 01/15/19 2 Kate Leal MD 15 [facility] 102 [place] [address] [email or web address] Historical LMR Provider 01/15/19 03/30/21 Jennifer Bridges NP [address] [place] [phone] [email or web address] Historical LMR Provider 01/15/19 10/31/19 Tari Willams 15 [facility] 201 [place] [address] Historical LMR Provider 01/15/19 2 Kody Ayon MD [address] [place] [address] 300 [place] [address] Historical LMR Provider 01/15/[address] Allen [address], [facility] [place] [address] Historical LMR Provider 01/15/19 03/30/21 Tari Urias DO [address] [place] [address] 200 [place] [address] [email or web address] Historical LMR Provider 01/15/19 10/31/19 Palak Culver CNM 15 [facility] 102 [place] [address] [email or web address] Historical LMR Provider 01/15/19 03/30/21 Damaso Carranza MD 15 [facility] 102 [place] [address] [email or web address] Historical LMR Provider 01/15/19 Ian Youssef MD [address] [place] [address] 100 [place] [address] Historical LMR Provider 01/15/19 2 Jc Jacobs MD [address] [place] [address] [email or web address] Historical LMR Provider 01/15/19 03/30/21 Eliz Saleem CNM [employer], [place] [address] [email or web address] Historical LMR Provider 01/15/19 03/30/21 documented as of this encounter Additional Source Comments The information contained in this document represents components of the legal health record. It is not the complete legal health record.[facility]
--- OUTSIDE RECORDS SUMMARY | 2023-11-16 12:23 | XMS_ITS | Encounter Summary ---
Author Organization [facility] Address [phone] [facility] [place] [address] Care Team Providers Care Petrology Teacher Name Role Phone Jennifer Bridges NP Primary Care Provider Hayley Pandey MD Unavailable + [phone] Chloé Sánchez CNM Unavailable [phone] Dayana Galindo MD Unavailable Ruiz Lewis DO Unavailable Xiomara Cain Morales MD Unavailable Kate Leal MD Unavailable [phone] Jennifer Bridges NP Unavailable +[phone] Tari Willams Unavailable [phone] Kody Ayon MD Unavailable [phone] Cynthia Allen CNM Unavailable [phone] Tari Urias DO Unavailable [phone] Palak Culver CNM Unavailable [phone] Damaso Carranza MD Unavailable Ian Youssef MD Unavailable [phone] Jc Jaocbs MD Unavailable Eliz Saleem [facility] Unavailable [phone] Reason for Visit * Reason Onset Date Comments Follow-up 04/01/2019 update on consul t Encounter Details Date Type Department Care Team (Late st Contact Info) Description 04/01/2019 Telephone [facility] Medical Oncology 9 [place] [address] Nina Lujan, RN [address] [place] [address] [email or web address] Follow-up (update on consult) Social History Tobacco Use Types Packs/Day Years Used Date Smoking Tobacco: Never Sex and Gender Information Value Date Recorded Sex Assigned at Female 01/11/2020 5:24 PM EDT Gender Identity Female 01/11/2020 5:24 PM EDT Sexual Orientation Straight 01/11/2020 5: 24 PM EDT documented as of this encounter Progress Notes * Nina Lujan RN - 04/01/2019 10:18 AM EST Spoke with pt. She has decided to seek care at [facility] and wishes to do any ongoing surveillance care here at [facility]. Scheduling request will be sent to [facility]...KMQ documented in this encounter Plan of Treatment Not on file documented as of this encounter Visit Diagnoses Not on filedocumented in this encounter Care Teams Petrology Teacher Relationship Specialty Start Date End Date Jennifer Bridges NP [address] [place] [phone] [email or web address] PCP - General 12/31/18 Hayley Pandey MD [address] [address] [email or web address] Historical LMR Provider 01/15/19 03/30/21 Chloé Sánchez CNM 15 [facility] 102 [place] [address] [email or web address] Historical LMR Provider 01/15/19 03/30/21 Dayana Galindo MD 15 [facility] 102 [place] [address] [email or web address] Historical LMR Provider 01/15/19 03/30/[address] [place] [address] [email or web address] Historical LMR Provider 01/15/19 03/30/21 Cain Morales MD [address] [place] [address] Historical LMR Provider 01/15/19 2 Kate Leal MD 15 [facility] 102 [place] [address] [email or web address] Historical LMR Provider 01/15/19 03/30/21 Jennifer Bridges NP [address] [place] [address] 3 [place] [address] [email or web address] Historical LMR Provider 01/15/19 10/31/19 Tari Willams 15 [facility] 201 [place] [address] Historical LMR Provider 01/15/19 2 Kody Ayon MD [address] [place] [address] 300 [place] [address] Historical LMR Provider 01/15/[address], [place] [address] Historical LMR Provider 01/15/19 03/30/21 Tari Urias DO [address] [place] [address] Historical LMR Provider 01/15/19 10/31/19 Palak Culver CNM [address] [address] Historical LMR Provider 01/15/19 03/30/21 Damaso Carranza MD [address] [address] Historical LMR Provider 01/15/19 Ian Youssef MD [address] [place] [address] 100 [place] [address] Historical LMR Provider 01/15/19 2 Jc Jacobs MD [address] [place] [address] [email or web address] Historical LMR Provider 01/15/19 03/30/21 Eliz Saleem CNM [employer], [facility] [place] [address] [email or web address] Historical LMR Provider 01/15/19 03/30/21 documented as of this encounter Additional Source Comments The information contained in this document represents components of the legal health record. It is not the complete legal health record.[facility]
--- OUTSIDE RECORDS SUMMARY | 2023-11-16 12:23 | XMS_ITS | Encounter Summary ---
Author Organization [facility] [place] [address] Care Team Providers Care Child Custody Evaluator Name Role Phone Janina Camryn Steel APRN Primary Care Provider [phone] Encounter Details Date Type Department Care Team (Late st Contact Info) Description 04/23/2023 Ancillary Procedure Radiology [facility] at [facility] [place] [phone] Camryn Roa APRN [address] [place] [address] Social History Tobacco Use Types Packs/Day [...] Associated Diagnosis Comments FILM LIBRARY STORAGE ONLY MR HEAD Routine 04/23/2023 12:00 AM EST documented in this encounter Results * Film Library- Storage Only MR Head (04/23/2023 12:00 AM EST) Narrative [facility] - 05/12/2023 8:49 PM EST This exam is auto-finalizing. It's purpose is for storage only. Camryn Roa APRN IMG FILM LIBRARY O RDERABLES [place], [place] documented in this encounter Visit Diagnoses Not on filedocumented in this encounter Care Teams Child Custody Evaluator Relationship Specialty Start Date End Date Camryn Roa APRN [address] [place] [phone] PCP - General Family Medicine 07/29/21 documented as of this encounter
--- OUTSIDE RECORDS SUMMARY | 2023-11-16 12:23 | XMS_ITS | Encounter Summary ---
Author Organization [facility] Address [phone] [facility] [place] [address] Care Team Providers Care Head Chef Name Role Phone Jennifer Bridges NP Primary Care Provider Hayley Pandey MD Unavailable + [phone] Chloé Sánchez CNM Unavailable [phone] Dayana Galindo MD Unavailable Ruiz Lewis DO Unavailable Xiomara Cain Morales MD Unavailable Kate Leal MD Unavailable [phone] Jennifer Bridges NP Unavailable [phone] Tari Willams Unavailable [phone] Kody Ayon MD Unavailable [phone] Cynthia Allen CNM Unavailable [phone] Tari Urias DO Unavailable [phone] Palak Culver CNM Unavailable [phone] Damaso Carranza MD Unavailable Ian Youssef MD Unavailable [phone] Jc Jacobs MD Unavailable Eliz Saleem [facility] Unavailable Reason for Visit * Reason Onset Date Comments referral 03/31/2019 see note Encounter Details Date Type Department Care Team (Late st Contact Info) Description 03/31/2019 Telephone [facility] Medical Oncology [address] [place] [address] Nina Lujan, RN [address] [place] [address] [email or web address] referral (see note) Social History Tobacco Use Types Packs/Day Years Used Date Smoking Tobacco: Never Sex and Gender Information Value Date Recorded Sex Assigned at Female 01/11/2020 5:24 PM EDT Gender Identity Female 01/11/2020 5:24 PM EDT Sexual Orientation Straight 01/11/2020 5: 24 PM EDT documented as of this encounter Progress Notes * Nina Lujan RN - 03/31/2019 10:25 AM EST Call to pt to discuss referral from 03/30/19 to [facility] by Dr. Rivera. Mailbox was full and unable to leave message....KMQ documented in this encounter Plan of Treatment Not on file documented as of this encounter Visit Diagnoses Not on filedocumented in this encounter Care Teams Head Chef Relationship Specialty Start Date End Date Jennifer Bridges NP [address] [place] [phone] [email or web address] PCP - General 12/31/18 Hayley Pandey MD [address] [address] Historical LMR Provider 01/15/19 03/30/21 Chloé Sánchez CNM 15 [facility] [address] [place] [address] [email or web address] Historical LMR Provider 01/15/19 03/30/21 Dayana Galindo MD 15 [facility] [address] [place] [address] [email or web address] Historical LMR Provider 01/15/19 03/30/[address] [place] [address] [email or web address] Historical LMR Provider 01/15/19 03/30/21 Cain Morales MD [address] [place] [address] 401 [place], [place] [phone] Historical LMR Provider 01/15/19 2 Kate Leal MD 15 [facility] [address] [place] [address] [email or web address] Historical LMR Provider 01/15/19 03/30/21 Jennifer Bridges NP [address] [place] [phone] [email or web address] Historical LMR Provider 01/15/19 10/31/19 Tari Willams 15 [facility] 201 [place] [address] Historical LMR Provider 01/15/19 2 Kody Ayon MD [address] [place] [address] 300 [place] [address] Historical LMR Provider 01/15/[address] [place] [address] Historical LMR Provider 01/15/19 03/30/21 Tari Urias DO [address] [place] [address] 200 [place] [address] Historical LMR Provider 01/15/19 10/31/19 Palak Culver CNM 15 [facility] [address] [place] [address] [email or web address] Historical LMR Provider 01/15/19 03/30/21 Damaso Carranza MD 15 [facility] [address] [place] [address] Historical LMR Provider 01/15/19 Ian Youssef MD [address] [place] [address] [address] [place] [address] Historical LMR Provider 01/15/19 Jc Alba MD [address] [place] [address] [email or web address] Historical LMR Provider 01/15/19 03/30/21 Eliz Saleem CNM [email or web address], [facility] [place] [address] [email or web address] Historical LMR Provider 01/15/19 03/30/21 documented as of this encounter Additional Source Comments The information contained in this document represents components of the legal health record. It is not the complete legal health record.[facility]
--- OUTSIDE RECORDS SUMMARY | 2023-11-16 12:23 | XMS_ITS | Encounter Summary ---
Author Organization [facility] Address [phone] [facility] [place] [address] Care Team Providers Care Drive Away Driver Name Role Phone Jennifer Bridges NP Primary Care Provider Hayley Pandey MD Unavailable + [phone] Chloé Sánchez CNM Unavailable [phone] Dayana Galindo MD Unavailable Ruiz Lewis DO Unavailable Xiomara Cain Morales MD Unavailable Kate Leal MD Unavailable [phone] Jennifer Bridges NP Unavailable [phone] Tari Willams Unavailable [phone] Kody Ayon MD Unavailable [phone] Cynthia Allen CNM Unavailable [phone] Tari Urias DO Unavailable [phone] Palak Culver CNM Unavailable [phone] Damaso Carranza MD Unavailable Ian Youssef MD Unavailable [phone] Jc Jacobs MD Unavailable Eliz Saleem [facility] Unavailable Reason for Referral * Consultation (Within 2 weeks) - Closed Specialty Diagnoses / Procedures Referred By Theresa lo Referred To Contact Neurology Diagnoses Arnold-Chiari malformation Belén Bravo MD [address] [place] [address] Email: [facility] Parent [address] [place] [address] Referral ID Status Reason Start Date Expiration Date Visits Re quested Visits Authorized [id number] Closed 03/30/2019 03/30/2020 6 6 Reason for Visit * Reason Onset Date Comments ref 03/30/2019 neuro internal r ef. Encounter Details Date Type Department Care Team ([facility] Contact Info) Description 03/30/2019 Telephone [facility] 60 [facility] [address] [place] [phone] Jennifer Bridges, MONICA 60 [facility] [address] [place] [address] [email or web address] ref (neuro internal ref.) Social History Tobacco Use Types Packs/Day Years Used Date Smoking Tobacco: Never Sex and Gender Information Value Date Recorded Sex Assigned at Female 01/11/2020 5:24 PM EDT Gender Identity Female 01/11/2020 5:24 PM EDT Sexual Orientation Straight 01/11/2020 5: 24 PM EDT documented as of this encounter Progress Notes * Belén Bravo MD - 03/31/2019 12:47 PM EST Referral entered. * Paz Gandhi LPN - 03/30/2019 4:24 PM EST Pt states after surgery symptoms went away, but never fully went away. She knows this is normal forthis surgery, but things seem to be getting worse again. She wants to just check in. Pt reports Headaches, nausea, back pain, fatigue, balance/dizziness - not a major problem. Pt states you know that aura feeling you have before a migraine, I feel that I'm stuck in that phase sometimes She reports this was a symptom before surgery. * Belén Bravo MD - 03/30/2019 12:44 PM EST Is she having any current symptoms or is this just follow up/establish care? * Yue Perry - 03/30/2019 8:41 AM EST Received call from patient requesting referral to [facility] Neuro for DX Arnold Chiari Deformity. Jose be in tomorrow to sign record request so we can get her [facility] records for 2004 when she had surgery for this. documented in this encounter Plan of Treatment Scheduled Referrals Name Type Priority Associated Diagnoses Orde r Schedule Ambulatory Referral to [facility] Neurology Outpatient Referral Routine Arnold-Chiari malformation Ordered: 03/30/2019 documented as of this encounter Visit Diagnoses Diagnosis Arnold-Chiari malformation- Primary Spina bifida with hydrocephalus, unspecified region documented in this encounter Care Teams Drive Away Driver Relationship Specialty Start Date End Date Jennifer Bridges NP [address] [place] [phone] [email or web address] PCP - General 12/31/18 Hayley Pandey MD [address] [address] [email or web address] Historical LMR Provider 01/15/19 03/30/21 Chloé Sánchez CNM 15 [facility] [address] [place] [address] [email or web address] Historical LMR Provider 01/15/19 03/30/21 Dayana Galindo MD 15 [facility] [address] [place] [address] [email or web address] Historical LMR Provider 01/15/19 03/30/[address] [place] [address] [email or web address] Historical LMR Provider 01/15/19 03/30/21 Cain Morales MD [address] [place] [address] Historical LMR Provider 01/15/19 2 Kate Leal MD [address] [place] [address] [address] [place] [address] [email or web address] Historical LMR Provider 01/15/19 03/30/21 Jennifer Bridges, CAPTAIN ASSISTANT 60 [facility] 3 [place] [address] [email or web address] Historical LMR Provider 01/15/19 10/31/19 Tari Willams 15 [facility] 201 [place] [address] Historical LMR Provider 01/15/19 2 Kody Ayon MD [address] [place] [address] Historical LMR Provider 01/15/19 Cynthia Allen CNM [employer] [place] [address] Historical LMR Provider 01/15/19 03/30/21 Tari Urias DO [address] [place] [address] Historical LMR Provider 01/15/19 10/31/19 Palak Culver CNM 15 [facility] 102 [place] [address] Historical LMR Provider 01/15/19 03/30/21 Damaso Carranza MD [address] [address] Historical LMR Provider 01/15/19 Ian Youssef MD [address] [place] [address] 100 [place] [address] Historical LMR Provider 01/15/19 2 Jc Jacobs MD [address] [place] [address] [email or web address] Historical LMR Provider 01/15/19 03/30/21 Eliz Saleem CNM [employer], [place] [address] [email or web address] Historical LMR Provider 01/15/19 03/30/21 documented as of this encounter Additional Source Comments The information contained in this document represents components of the legal health record. It is not the complete legal health record.[facility]
--- OUTSIDE RECORDS SUMMARY | 2023-11-16 12:24 | XMS_ITS | Encounter Summary ---
Author Organization [facility] [place] [address] Care Team Providers Care Embossing Machine Operator Name Role Phone Unavailable Primary Care Provider Unavailabl e Reason for Referral * Consultation (Routine) - Closed Specialty Diagnoses / Procedures Referred By Theresa t Referred To Contact Neurology Diagnoses Weakness of both legs Numbness in feet Camryn Roa APRN [address] [place] [address] [address] [facility] Neurology [address] [place] [phone] Referral ID Status Reason Start Date Expiration Date V isits Requested Visits Authorized [id number] Closed Consult, Test & Treat PCP Updated and/or Approved 07/03/2021 07/03/2022 6 6 Encounter Details Date Type Department Care Team (Late st Contact Info) Description 07/05/2021 Transcribe Orders eDH Incoming Referrals [phone] Camryn Roa APRN [address] [place] [address] Weakness of both legs; Numbness in feet Social History Tobacco Use Types Packs/Day Years Used Date Smoking Tobacco: Never Assessed Sex and Gender Information Value Date Recorded Sex Assigned at Not on file Gender Identity Not on file Sexual Orientation Not on file documented as of this encounter Plan of Treatment Scheduled Referrals Name Type Priority Associated Diagnoses Orde r Schedule Referral to Neurology Outpatient Referral Routine Weakness of both legs Numbness in feet Ordered: 07/05/2021 documented as of this encounter Visit Diagnoses Diagnosis Weakness of both legs Other musculoskeletal symptoms referable to limbs Numbness in feet Disturbance of skin sensation documented in this encounter
--- OUTSIDE RECORDS SUMMARY | 2023-11-16 12:24 | XMS_ITS | Encounter Summary ---
Author Organization [facility] [place] [address] Care Team Providers Care Payroll Associate Name Role Phone Camryn Roa APRN Primary Care Provider [phone] Reason for Visit * Reason Onset Date Comments Bumped Appointment 11/06/2021 Encounter Details Date Type Department Care Team (Late st Contact Info) Description 11/06/2021 Telephone Neurology at [facility] [place] [place] [phone] Stacey Sorenson Bumped Appointment Social History Tobacco Use Types Packs/Day Years Used Date Smoking Tobacco: Never Assessed Sex and Gender Information Value Date Recorded Sex Assigned at Not on file Gender Identity Not on file Sexual Orientation Not on file documented as of this encounter Miscellaneous Notes * Telephone Encounter - Stacey Sorenson - 11/06/2021 9:43 AM EDT Please reschedule 03/26/2022 appointment from Past tab. Please add providers: Bryce & Terri to list. documented in this encounter Plan of Treatment Not on file documented as of this encounter Visit Diagnoses Not on filedocumented in this encounter Care Teams Payroll Associate Relationship Specialty Start Date End Date Camryn Roa APRN [address] [place] [address] PCP - General Family Medicine 07/29/21 documented as of this encounter
--- OUTSIDE RECORDS SUMMARY | 2023-11-16 12:24 | XMS_ITS | Encounter Summary ---
Author Organization [facility] [place] [address] Care Team Providers Care [employer] Driver Name Role Phone Camryn Roa APRN Primary Care Provider [phone] Encounter Details Date Type Department Care Team (Late st Contact Info) Description 08/28/2021 12:05 AM EDT Ancillary Procedure Radiology Library at [facility] [place] [phone] Camryn Roa APRN [address] [place] [address] [phone] Social History Tobacco Use Types Packs/Day Years [...] FILM LIBRARY STORAGE ONLY MR HEAD Routine 08/28/2021 12:05 AM EDT documented in this encounter Results * Film Library- Storage Only MR Head (08/28/2021 12:05 AM EDT) Narrative [facility] - 09/11/2021 10:53 AM EDT This exam is auto-finalizing. It's purpose is for storage only. Camryn Roa APRN IMG FILM LIBRARY O RDERABLES [place], [place] documented in this encounter Visit Diagnoses Not on filedocumented in this encounter Care Teams [employer] Driver Relationship Specialty Start Date End Date Camryn Roa APRN [address] [place] [phone] PCP - General Family Medicine 07/29/21 documented as of this encounter
--- OUTSIDE RECORDS SUMMARY | 2023-11-16 12:24 | XMS_ITS | Encounter Summary ---
Author Organization [facility] [place] [address] Care Team Providers Care Sheet Writer Name Role Phone Janina Camryn Steel APRN Primary Care Provider [phone]- [phone] Encounter Details Date Type Department Care Team (Late st Contact Info) Description 08/28/2021 Ancillary Procedure Radiology Library at [facility] [place] [phone] Camryn Roa APRN [address] [place] [address] [phone] Social History Tobacco Use Types Packs/Day Years [...] Diagnosis Comments FILM LIBRARY STORAGE ONLY MR SPINE Routine 08/28/2021 12:00 AM EDT documented in this encounter Results * Film Library- Storage Only MR Spine (08/28/2021 12:00 AM EDT) Narrative [facility] - 09/11/2021 10:50 AM EDT This exam is auto-finalizing. It's purpose is for storage only. Camryn Roa APRN IMG FILM LIBRARY O RDERABLES [facility] [place] documented in this encounter Visit Diagnoses Not on filedocumented in this encounter Care Teams Sheet Writer Relationship Specialty Start Date End Date Camryn Roa APRN [address] [place] [address] PCP - General Family Medicine 07/29/21 documented as of this encounter
--- OUTSIDE RECORDS SUMMARY | 2023-11-16 12:24 | XMS_ITS | Encounter Summary ---
Author Organization [facility] Gonzalez [place] [address] Care Team Providers Care Harness Installer Name Role Phone Unavailable Primary Care Provider Unavailabl e Encounter Details Date Type Department Care Team (Late st Contact Info) Description 07/05/2021 Transcribe Orders eD Incoming Referrals [phone] Camryn Roa APRN [address] [place] [address] Social History Tobacco Use Types Packs/Day Years [...]
[2023-11-16 19:57] LABS: Bilirubin Negative (Negative); Blood Trace-intact (Negative); Glucose Negative (Negative); Ketones Trace mg/dL (Negative); Leukocyte Esterase Negative (Negative); Nitrite Negative (Negative); Urobilinogen 0.2 mg/dL (Up to 0.2)
[2023-11-16 19:59] LABS: Clarity Cloudy (Clear)
[2023-11-16 20:05] LABS: Bacteria Rare HPF (Negative); C & S Indicated? No; Casts Negative LPF (Negative); Crystals Many Amorphous HPF (Negative); Epithelial Cells Rare HPF (Negative); Mucus Negative (Negative); RBC 0-2 HPF (0-2); WBC Negative HPF (0-5)
== END 2023-11-16 12:11 | disposition home or self-care (01) ==
LOC: NCHCN 12:10
PROVIDERS: PCP Nurse Practitioner Family; Visit Provider Nurse Practitioner Family
DX: R31.21 Asymptomatic microscopic hematuria (principal)
CPT/HCPCS: 81003; 81015

== ENCOUNTER 2024-12-01 17:01 | Outpatient (REF) | payer SELFPAY ==
--- NOTE | 2024-12-01 16:10 | PAPFT_PTH ---
PATIENT: Mraylou Shafer LOC: [facility]#:[id number] AGE/SX: 34/F ROOM: RE12/01/[address]: Kali Roa : 1990 BED: DIS: 12/01/2024 SPEC #: [id number] RECD: 12/01/24 18:34 STATUS: LAURIE RERaphael #: [id number] MARCO: 12/01/24 16:[address]: Karli Roalaide DEPT: [facility] Cytology RECD BY: Aliyah Humphreys Tissues: 1 - CX/ENDOCX FOR PAP SMEARS Procedures: PAP THIN PREP/UVM Screening HPV DNA PROBE Comments: [id number] (HPV 16 & 18/45)
== END 2024-12-01 17:02 | disposition home or self-care (01) ==
LOC: NCHCN 17:01
PROVIDERS: PCP Nurse Practitioner Family; Visit Provider Nurse Practitioner Family
DX: Z12.4 Encounter for screening for malignant neoplasm of cervix (principal)
CPT/HCPCS: 88142; 87624